=== PATIENT | female | born 1985 | race Native Hawaiian/Other Pacific Islander ===

== ENCOUNTER 2021-09-20 14:53 | Outpatient (CLI) | payer MEDICAID, SELFPAY | END 2021-09-20 14:54 | disposition home or self-care (01) | LOC: NFLDREF 14:55 | PROVIDERS: Visit Provider Physician Assistant | DX: Z01.818 Encounter for other preprocedural examination (principal); Z12.4 Encounter for screening for malignant neoplasm of cervix | CPT/HCPCS: 87624; 88175 ==

== ENCOUNTER 2023-07-01 15:23 | Outpatient (CLI) | payer MEDICAID, SELFPAY ==
--- OUTSIDE RECORDS SUMMARY | 2023-07-01 15:26 | XMS_ITS | Referral Summary ---
Author Name Unknown Organization [place] Address [address] [place] [address] Care Team Providers Care Insulation Extruder Operator Name Role Phone Tre Ba MD Primary Care Provide r Allergies No known active allergies Medications Medication Sig Dispensed Refills Start Date End Date Status ibuprofen (ADVIL/MOTRIN) 800 MG tabletIndications: Missed Take 1 tablet (800 mg) by mouth every 6 hours as needed for other (mild and/or inflammatory pain) 30 tablet 01/20/2022 Active acetaminophen (TYLENOL) 325 MG tabletIndications: Missed Take 3 tablets (975 mg) by mouth every 6 hours as needed for mild pain 50 tablet 01/20/2022 Active Active Problems No known active problems Social History Tobacco Use Types Packs/Day Years Used Date Smoking Tobacco: Never Smokeless Tobacco: Never Tobacco Cessation:Counseling Given: Not Answered Alcohol Use Standard Drinks/Week Comments Not Currently 0 (1 standard drink = 0.6 oz pur e alcohol) Adolescent Education Answer Date Record ed Getting School Help Needed Not on file 11/15 Sex and Gender Information Value Date Recorded Sex Assigned at Not on file Gender Identity Not on file Sexual Orientation Not on file Last Filed Vital Signs Vital Sign Reading Time Taken Comments Blood Pressure 112/59 01/20/2022 11:00 PM [employer] Pulse 80 01/20/2022 11:00 PM [employer] Temperature 37.1 ??C (98.7 ??F) 01/20/2022 10:[address] Respiratory Rate 16 01/20/2022 11:00 PM [employer] Oxygen Saturation 100% 01/20/2022 11:30 PM [employer] Inhaled Oxygen Concentration - - Weight 76.4 kg (168 lb 6.4 oz) 01/20/2022 4:42 P M [employer] Height 154.9 cm (5' 1) 01/20/2022 4:42 PM [employer] Body Mass Index 31.82 01/20/2022 4:42 PM [employer] Plan of Treatment Not on file Procedures Procedure Name Priority Date/Time Associated Diagnosis Comments HCL PAP SMEAR Routine 07/18/1998 1:18 PM CDT Gynecologic Examination from Last 3 Months or Most Recently Relevant to Health Maintenance Results * PAP SMEAR (07/18/1998 1:18 PM CDT) Unlabelled DNR [facility] Biopsy Sent DNR [facility] Source VAG,CERV,E NDOCERV [facility] LMP POST [facility] PARA 3 [facility] 2 [facility] Clinical History DNR [facility] Therapy DNR [facility] Last Pap Diagnosis WITHIN NORMAL LIMITS [facility] PAP Date [id number] [facility] Specimen # DNR [facility] Tissue DNR [facility] Tissue Date DNR [facility] Statement of Adequacy [facility] Comment: SATISFACTORY FOR INTERPRETATION POST MENOPAUSAL PATIENT. ??NO ENDOCERVICAL CELLS SEEN. General Categorization DNR [facility] Descriptive Diagnosis [facility] Comment: WITHIN NORMAL LIMITS ATROPHIC CELL PATTERN Recommendations DNR QUES [facility] DNR 114,,,,,, [facility] DNR DNR [facility] DNR DNR [facility] DNR DNR [facility] . [facility] Comment: ?PAP SMEARS ARE SUBJECT TO BOTH FALSE NEGATIVE AND FALSE ? POSITIVE RESULTS EVIDENCED BY DATA PUBLISHED IN THE ? MEDICAL LITERATURE. ??YOUR PATIENT'S RESULT SHOULD BE ? INTERPRETED IN THIS CONTEXT, TOGETHER WITH THE PATIENT'S ? HISTORY AND CLINICAL FINDINGS. TESTING LOCATION ? THIS TEST WAS PERFORMED AT [facility] ? [address] [facility]. [id number] ? PHONE NUMBERS FOR CYTOLOGY INQUIRES, INCLUDING SLIDE REQUESTS ? EXT. [id number] ?? EXT. [id number] 07/16/1998 Kaleigh Moy MD LABORATORY [facility] from Last 3 Months or Most Recently Relevant to Health Maintenance Care Teams Insulation Extruder Operator Relationship Specialty Start Date End Date Tre [facility]B [facility] [address] [address] PCP - General chemistry research assistant 01/15/22
--- OUTSIDE RECORDS SUMMARY | 2023-07-01 15:26 | XMS_ITS | Clinical Summary ---
Author Name Unknown Organization [place] Address [address] [place] [address] Care Team Providers Care Assistant Maintenance Manager Name Role Phone Tre Ba MD Primary [...] Comments Blood Pressure 112/59 01/20/2022 11:00 PM [employer]AG [employer] Pulse 80 01/20/2022 11:00 PM [employer] Temperature 37.1 ??C (98.7 ??F) 01/20/2022 10:[address] Respiratory Rate 16 01/20/2022 11:00 PM [employer] TE[employer] Oxygen Saturation 100% 01/20/2022 11:30 PM [employer] Inhaled Oxygen Concentration - - Weight 76.4 kg (168 lb 6.4 oz) 01/20/2022 4:42 P M [employer] Height 154.9 cm (5' 1) 01/20/2022 4:42 PM [employer] Body Mass Index 31.82 01/20/2022 4:42 PM [employer] Plan of Treatment Health Maintenance Due Date Last Done Comments ADVANCE CARE PLANNING 1987 ANNUAL REVIEW OF HM ORDERS 1987 GLUCOSE 1987 YEARLY PREVENTIVE VISIT 1987 HIV SCREENING 10/21/2002 HEPATITIS C SCREENING 10/21/2005 HEPATITIS B IMMUNIZATION (1 of 3 - 19+ 3-dose series) 10/21/2006 COVID-19 Vaccine (1 - 2022-2 4 season) 2022 DTAP/TDAP/TD IMMUNIZATION (2 - Td or Tdap) 12/08/2022 12/08/2012 PHQ-2 (once per calendar year) 2023 INFLUENZA VACCINE (Season Ended) 2023 12/08/2012, 04/13/2012 PAP 09/20/2024 09/20/2021, 09/20/2021 HPV IMMUNIZATION Aged Out No longer e ligible based on patient's age to complete this topic IPV IMMUNIZATION Aged Out No longer e ligible based on patient's age to complete this topic MENINGITIS IMMUNIZATION Aged Out No l onger eligible based on patient's age to complete this topic Pneumococcal Vaccine: Pediatrics (0 to 5 Years) and At-Risk Patients (6 to 64 Years) Aged Out No longer eligible b ased on patient's age to complete this topic RSV MONOCLONAL ANTIBODY Aged Out No l onger eligible based on patient's age to complete this topic Procedures Procedure Name Priority Date/Time Associated Diagnosis Comments HCL PAP SMEAR Routine 07/18/1998 1:18 PM CDT Gynecologic Examination from Last 3 Months or Most Recently Relevant to Health Maintenance Results * PAP SMEAR (07/18/1998 1:18 PM CDT) Unlabelled DNR [facility] Biopsy Sent DNR [facility] Source VAG,CERV,E NDOCERV [facility] LMP POST [facility] PARA 3 [facility] 2 [facility] Clinical History DNR [facility] Therapy DNR [facility] Last Pap Diagnosis WITHIN NORMAL LIMITS [facility] PAP Date [id number] [facility] Specimen # DNR [facility] Tissue DNR [facility] Tissue Date DNR [facility] Statement of Adequacy [facility] Comment: SATISFACTORY FOR INTERPRETATION POST MENOPAUSAL PATIENT. ??NO ENDOCERVICAL CELLS SEEN. General Categorization DNR [facility] Descriptive Diagnosis [facility] Comment: WITHIN NORMAL LIMITS ATROPHIC CELL PATTERN Recommendations DNR QUES [facility] DNR 114,,,,,, [facility] DNR DNR [facility] DNR DNR [facility] DNR DNR [facility] . [facility] Comment: ?PAP SMEARS ARE SUBJECT TO BOTH FALSE NEGATIVE AND FALSE ? POSITIVE RESULTS EVIDENCED BY DATA PUBLISHED IN THE ? MEDICAL LITERATURE. ??YOUR PATIENT'S RESULT SHOULD BE ? INTERPRETED IN THIS CONTEXT, TOGETHER WITH THE PATIENT'S ? HISTORY AND CLINICAL FINDINGS. TESTING LOCATION ? [facility] ? [address] [place] [address]. [id number] ? PHONE NUMBERS FOR CYTOLOGY INQUIRES, INCLUDING SLIDE REQUESTS ? EXT. [id number] ?? EXT. [id number] 07/16/1998 Kaleigh Moy MD LABORATORY [facility] from Last 3 Months or Most Recently Relevant to Health Maintenance Care Teams Assistant Maintenance Manager Relationship Specialty Start Date End Date [facility] [address] [phone] PCP - General customer service officer 01/15/22
== END 2023-07-01 15:24 | disposition home or self-care (01) ==
PROVIDERS: Visit Provider Registered Nurse
DX: Z34.92 Encounter for supervision of normal pregnancy, unspecified, second trimester (principal); Z3A.26 26 weeks gestation of pregnancy
CPT/HCPCS: 76805; 82565; 82570; 84156; 84450; 84460; 84520; 86592; 86703; 86704; 86706; 86762; 86787; 86803; 86850; 86900; 86901; 87086; 87340; 87491; 87591

== ENCOUNTER 2023-08-24 08:46 | Outpatient (CLI) | payer MEDICAID, SELFPAY ==
--- OUTSIDE RECORDS SUMMARY | 2023-08-26 15:39 | XMS_ITS | Referral Summary ---
Author Organization [place] Address [address] [place] [address]. [place] [address] Care Team Providers Care Cnc Programmer Name Role Phone Tre Ba MD Primary Care Provide r Bassem Pathak MD Unavailable [phone] Encounters Date Type Department Care Team Description 08/26/2023 Telephone [facility] [address] [place] [phone] Cheri Peters LPN 08/25/2023 Travel 08/25/2023 12:15 PM CDT Office Visit [facility] [address] [facility] [place] [phone] Bassem Pathak MD Yamamura, Yasuko, MD Pre-existing type 2 diabetes mellitus during in third trimester (Primary Dx); Polyhydramnios in third trimester complication, single or unspecified fetus 08/25/2023 11:45 AM CDT - 08/25/2023 11:59 PM CDT Hospital Encounter [facility] Medicine [facility] [address] [place] [phone] Bassem Pathak MD Yamamura, Yasuko, MD Pre-existing type 2 diabetes mellitus during in third trimester Discharge Disposition: Home or Self Care 08/21/2023 Travel 08/21/2023 12:15 PM CDT Office Visit [facility] [address] [place] [phone] Cristiane Patel MD Rauk, Phillip Neil, MD Pre-existing type 2 diabetes mellitus during in third trimester (Primary Dx); Polyhydramnios affecting 08/21/2023 11:45 AM CDT - 08/21/2023 11:59 PM CDT Hospital Encounter [facility] Medicine [facility] [address] [place] [phone] Cristiane Patel MD Rauk, Mitch Walker MD Polyhydramnios affecting Discharge Disposition: Home or Self Care 08/14/2023 Travel 08/14/2023 4:00 PM CDT Office Visit [facility] [place] [address] [address] [facility] [address] [place] [phone] Cristiane Patel MD Rauk, Mitch Walker MD Pre-existing type 2 diabetes mellitus during in third trimester (Primary Dx); Polyhydramnios affecting 08/14/2023 3:30 PM CDT - 08/14/2023 11:59 PM CDT Hospital Encounter [facility] [address] [facility] [address] [place] [phone] Cristiane Patel MD Rauk, Mitch Walker MD Polyhydramnios affecting Discharge Disposition: Home or Self Care 08/03/2023 Telephone [facility] [place] [address] [place] [phone] Laura Adbi, GC Results (Low Risk Expanded NIPT) 07/30/2023 Travel 07/30/2023 4:00 PM CDT Office Visit [facility] [address] [place] [phone] Bassem Pathak MD Pre-existing type 2 diabetes mellitus during in third trimester (Primary Dx) 07/30/2023 3:25 PM CDT - 07/30/2023 11:59 PM CDT Hospital Encounter [facility] Medicine [address] [place] [phone] Bassem Pathak MD Polyhydramnios affecting Discharge Disposition: Home or Self Care 07/29/2023 Telephone [facility] Medicine [facility] [address] [facility] [address] [place] [phone] Carrie Smith, JD Care (/) 07/24/2023 Medical Correspondence [facility] [address] [facility] [place] [address] Scan, Non-Provider 07/24/2023 2:40 PM CDT Lab [facility] [address] [place] [phone] Cristiane Patel MD Multigravida of advanced maternal age in third trimester 07/24/2023 Travel 07/24/2023 2:00 PM CDT Office Visit [facility] Medicine [place] [address] [address] [facility] [address] [place] [address] [phone] Cristiane Patel MD with type 2 diabetes mellitus in third trimester (Primary Dx); Polyhydramnios affecting 07/24/2023 12:50 PM CDT - 07/24/2023 11:59 PM CDT Hospital Encounter [facility] Medicine [facility] [address] [facility] [address] [place] [phone] Cristiane Patel MD related condition, antepartum Discharge Disposition: Home or Self Care 07/24/2023 12:45 PM CDT Office Visit [facility] Medicine [facility] [address] [facility] [address] [place] [address] [phone] Cristiane Patel MD Daykin, Emily C, GC Multigravida of advanced maternal age in third trimester (Primary Dx); related condition, antepartum 07/08/2023 PRE VISIT [facility] [address] [facility] [address] [place] [phone] Melissa Aguiar, JD Ultrasound (L2-AMA) 07/03/2023 Medical Correspondence [facility] [address] [facility] [place] [phone] Scan, Non-Provider 07/03/2023 Transcribe Orders [facility] [address] [place] [phone] Homar Medrano, 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 related condition, antepartum (Primary Dx) from Last 3 Months Allergies No known active allergies Medications Medication [...] pain 50 tablet 01/20/2022 Active Active Problems Estimated Date of Delivery Comme nts Yes 10/10/2023 Based on last me nstrual period of 01/03/2023 No known active problems Social History Tobacco Use Types Packs/Day Years Used Date Smoking Tobacco: Never Smokeless Tobacco: Never Tobacco Cessation:Counseling Given: Not Answered Alcohol Use Standard Drinks/Week Comments Not Currently 0 (1 standard drink = 0.6 oz pur e alcohol) Adolescent Education Answer Date Record ed Getting School Help Needed Not on file 11/15 Estimated Date of Delivery Comme nts Yes 10/10/2023 Based on last me nstrual period of 01/03/2023 Sex and Gender Information Value Date Recorded Sex Assigned at Not on file Gender Identity Not on file Sexual Orientation Not on file Last Filed Vital Signs Vital Sign Reading Time Taken Comments Blood Pressure 112/59 01/20/2022 11:00 PM [employer] Pulse 80 01/20/2022 11:00 PM [employer] Temperature 37.1 ??C (98.7 ??F) 01/20/2022 10:[address] Respiratory Rate 16 01/20/2022 11:00 PM [employer] Oxygen Saturation 100% 01/20/2022 11:30 PM [employer] Inhaled Oxygen Concentration - - Weight 76.4 kg (168 lb 6.4 oz) 01/20/2022 4:42 P M [employer] Height 154.9 cm (5' 1) 01/20/2022 4:42 PM [employer] Body Mass Index 31.82 01/20/2022 4:42 PM [employer] Plan of Treatment Upcoming Encounters Date Type Department Care Team (Late st Contact Info) Description 08/28/2023 8:00 AM CDT Appointment [facility] [address] [place] [phone] Cristiane Patel MD [address] [place] [address] 09/02/2023 11:45 AM CDT Appointment [facility] [address] [place] [phone] Luz Elena Betts MD [address] [place] [address] 09/02/2023 12:15 PM CDT Office Visit [facility] [address] [place] [phone] Luz Elena Betts MD [address] [place] [address] [phone] 09/08/2023 11:45 AM CDT Appointment [facility] [address] [place] [address] [phone] Bassem Pathak MD [address] [place], [place] [phone] Mitch Jernigan MD [address] [place] [address] 09/08/2023 12:15 PM CDT Office Visit [facility] [address] [place] [phone] Bassem Pathak MD [address] [place] [address] Mitch Jernigan MD [address] [place] [address] Procedures Procedure Name Priority Date/Time Associated Diagnosis Comments [facility] BPP SINGLE Routine 08/25/2023 12:05 PM CDT Pre-existing type 2 diabetes mellitus during in third trimester [facility] US COMPREHENSIVE SINGLE F/U Routine 08/21/2023 12:39 PM CDT Polyhydramnios affecting [facility] BPP SINGLE Routine 08/14/2023 3:54 PM CDT [facility] 07/30/2023 3:46 PM CDT Polyhydramnios affecting [facility] NON-INVASIVE SCREENING PREQUEL Routine 07/24/2023 2:49 PM CDT Multigravida of advanced maternal age in third trimester [facility] US COMPREHENSIVE SINGLE Routine 07/24/2023 2:13 PM CDT related condition, antepartum from Last 3 Months Results * [facility] BPP Single (08/25/2023 12:05 PM CDT) Only the most recent of3 resultswithin the time period is included. Anatomical Region Laterality Modality Ultrasound 08/25/2023 11:4 8 AM CDT Impressions 08/25/2023 1:03 PM CDT IMPRESSION ----- 1) Gonzalez intrauterine at 33w 3d gestational age. 2) The BPP is reassuring. 3) Mild polyhydramnios is noted. Narrative 08/25/2023 1:03 PM CDT ?BPP ----- Pat. Name: JACK EDWARDS ? Study Date: ??08/25/2023 11:48am Pat. NO: ??[id number] ?Referring ??MD: HOMAR MEDRANO Site: ? [employer] Sales Manager: Micha Gage RDMS : ??1985 ?Age: ?? 37 ----- INDICATION ----- Type 2 diabetes - on insulin Mild polyhydramnios METHOD ----- Transabdominal ultrasound examination. View: Sufficient ----- Gonzalez . Number of fetuses: 1 DATING ----- ? Date ?Details ?Gest. age ?BROOKE LMP ?01/03/2023 ?33 w + 3 d ? 10/10/2023 Stated BROOKE ? 33 w + 3 d ? 10/10/2023 Previous U/S ?03/03/2023 ?GA, GA 8 w + 3 d ? 33 w + 3 d ? 10/10/2023 Assigned dating ?based on the LMP, selected on 08/25/2023 ? 33 w + 3 d ? 10/10/2023 GENERAL EVALUATION ----- Cardiac activity present. FHR 154 bpm. movements: visualized. Presentation: cephalic Placenta: Anterior Umbilical cord: previously studied AMNIOTIC FLUID ASSESSMENT ----- Amount of AF: Polyhydramnios, Mild MVP 8.5 cm. ALEX 26.2 cm. Q1 1.9 cm, Q2 7.9 cm, Q3 8.9 cm, Q4 7.5 cm BIOPHYSICAL PROFILE ----- 2: breathing movements 2: Gross body movements 2: tone 2: Amniotic fluid volume 8/8 Biophysical profile score Interpretation: normal RECOMMENDATION ----- We discussed the findings on today's ultrasound with the patient. Continue surveillance with twice weekly BPP, alternating between [facility] and [facility]. Return to primary provider for continued care. Thank-you for the opportunity to participate in the care of this patient. If you have questions regarding today's evaluation or if we can be of further service, please contact the [facility]. anomalies may be present but not detected Procedure Note Luz Elena Betts MD - 08/25/2023 BPP ----- Pat. Name: JACK EDWARDS Study Date: 08/25/2023 11:48am Pat. NO: [id number] Referring MD: HOMAR MEDRANO Site: [employer] Manager: Micha Gage RDMS : 1985 Age: 37 ----- INDICATION ----- Type 2 diabetes - on insulin Mild polyhydramnios METHOD ----- Transabdominal ultrasound examination. View: Sufficient ----- Gonzalez . Number of fetuses: 1 DATING ----- DateDetailsGest. age BROOKE LMP w + 3 d 10/10/2023 Stated EDD33 w + 3 d 10/10/2023 Previous U/S 03/03/2023 GA, GA8 w + 3 d33 w + 3 d 10/10/2023 Assigned dating based on the LMP, selected on w + 3 d 10/10/2023 GENERAL EVALUATION ----- Cardiac activity present. FHR 154 bpm. movements: visualized.Presentation: cephalic Placenta: Anterior Umbilical cord: previously studied AMNIOTIC FLUID ASSESSMENT ----- Amount of AF: Polyhydramnios, Mild MVP 8.5 cm. ALEX 26.2 cm. Q1 1.9 cm, Q2 7.9 cm, Q3 8.9 cm, Q4 7.5 cm BIOPHYSICAL PROFILE ----- 2: breathing movements 2: Gross body movements 2: tone 2: Amniotic fluid volume 8/8 Biophysical profile score Interpretation: normal RECOMMENDATION ----- We discussed the findings on today's ultrasound with the patient. Continue surveillance with [facility]. Return to primary provider for continued care. Thank-you for the opportunity to participate in the care of this patient.If you have questions regarding today's evaluation or if we can be offurther service, please contact the [facility]. anomalies may be present but not detected IMPRESSION ----- 1) Gonzalez intrauterine at 33w 3d gestational age. 2) The BPP is reassuring. 3) Mild polyhydramnios is noted. Bassem Pathak MD [facility] US ORDERABLE S * [facility] US Comprehensive Single F/U (08/21/2023 12:39 PM CDT) Anatomical Region Laterality Modality Ultrasound 08/21/2023 11:5 8 AM CDT Impressions 08/21/2023 12:50 PM CDT IMPRESSION ----- 1. Gonzalez at 32w 6d gestational age. 2. None of the anomalies commonly detected by ultrasound were evident in the limited anatomic survey as described above. 3. Growth parameters and estimated weight were consistent with LGA growth. 4. Mild polyhydramnios. 5. BPP is reassuring. Narrative 08/21/2023 12:50 PM CDT ?Comp Follow Up ----- Pat. Name: JACK EDWARDS ? Study Date: ??08/21/2023 11:58am Pat. NO: ??[id number] ?Referring ??MD: HOMAR MEDRANO Site: ? [employer] Sales Manager: Yamila Dutton RDMS : ??1985 ?Age: ?? 37 ----- INDICATION ----- Type 2 diabetes - on insulin Mild polyhydramnios. METHOD ----- Transabdominal ultrasound examination. View: Sufficient ----- Gonzalez . Number of fetuses: 1 DATING ----- ? Date ?Details ?Gest. age ?BROOKE LMP ?01/03/2023 ?32 w + 6 d ? 10/10/2023 Stated BROOKE ? 32 w + 6 d ? 10/10/2023 Previous U/S ?03/03/2023 ?GA, GA 8 w + 3 d ? 32 w + 6 d ? 10/10/2023 U/S ? 08/21/2023 ? based upon AC, BPD, Femur, HC ?34 w + 5 d ? 09/27/2023 Assigned dating ?based on the LMP, selected on 08/14/2023 ? 32 w + 6 d ? 10/10/2023 GENERAL EVALUATION ----- Cardiac activity present. FHR 155 bpm. movements: present. Presentation: cephalic Placenta: Anterior Umbilical cord: 3 vessel cord Amniotic fluid: Amount of AF: mild polyhydramnios . MVP 10.2 cm. ALEX 26.1 cm. Q1 7.3 cm, Q2 10.2 cm, Q3 5.1 cm, Q4 3.5 cm BIOMETRY ----- BPD ? 85.5 ?mm ? 34w 3d ?Hadlock OFD ? 105.1 ?mm ? 31w 0d ?Nicolaides HC ? 302.8 ?mm ? 33w 4d ? Hadlock AC ? 347.6 ?mm ? 38w 5d ?>99% ?Hadlock Femur ?61.7 ?mm ? 32w 0d ? Hadlock Weight Calculation: EFW ?2,846 ?g ? >99% ?Hadlock EFW (lb,oz) ?6 lb 4 ?oz EFW by ? Hadlock (EDA-[id number]-FL) Head / Face / Neck Biometry: Prototyper ?4.4 ? mm ANATOMY ----- The following structures appear normal: Head / Neck ? Cranium. Head size. Head shape. Lateral ventricles. Midline falx. Cavum septi pellucidi. Cerebellum. Cisterna magna. Thalami. Face ? Profile. Heart / Thorax ?4-chamber view. ? Diaphragm. Abdomen ? Stomach. Kidneys. Bladder. Spine ?Thoracic spine. Lumbar spine. Sacral spine. The following structures were documented previously: Face ? Lips. Nose. Heart / Thorax ?RVOT view. LVOT view. 1-pdxvng-cihlztw view. Spine ?Cervical spine. sex: male. MATERNAL STRUCTURES ----- Cervix ?Suboptimal Right Ovary ?Not examined Left Ovary ?Not examined RECOMMENDATION ----- We discussed the findings on today's ultrasound with the patient. The patient has the following ultrasounds already scheduled: 1) BPP once weekly at your clinic. 2) BPP once weekly at [facility]. 3) echo on 08/28/23 with Pediatric Cardiology. 4) growth assessment at [facility] in 4 weeks. Given the polyhydramnios and LGA > 99% it is likely that she does not have adequate DM control despite her self report of good control. We will make recommendations on the timing of her delivery at the next growth ultrasound. Return to primary provider for continued care. Thank-you for the opportunity to participate in the care of this patient. If you have questions regarding today's evaluation or if we can be of further service, please contact the [facility]. anomalies may be present but not detected Procedure Note Mitch Jernigan MD - 08/21/2023 Comp Follow Up ----- Pat. Name: JACK EDWARDS Study Date: 08/21/2023 11:58am Pat. NO: [id number] Referring MD: HOMAR MEDRANO Site: [employer] Sales Manager: Yamila Dutton RDMS : 1985 Age: 37 ----- INDICATION ----- Type 2 diabetes - on insulin Mild polyhydramnios. METHOD ----- Transabdominal ultrasound examination. View: Sufficient ----- Gonzalez . Number of fetuses: 1 DATING ----- DateDetailsGest. age BROOKE LMP w + 6 d 10/10/2023 Stated EDD32 w + 6 d 10/10/2023 Previous U/S 03/03/2023 GA, GA8 w + 3 d32 w + 6 d 10/10/2023 U/S 08/21/2023ased upon AC, BPD, Femur, HC34 w + 5 d 09/27/2023 Assigned dating based on the LMP, selected on w + 6 d 10/10/2023 GENERAL EVALUATION ----- Cardiac activity present. FHR 155 bpm. movements: present.Presentation: cephalic Placenta: Anterior Umbilical cord: 3 vessel cord Amniotic fluid: Amount of AF: mild polyhydramnios . MVP 10.2 cm. ALEX 26.1cm. Q1 7.3 cm, Q2 10.2 cm, Q3 5.1 cm, Q4 3.5 cm BIOMETRY ----- BPD 85.5mm 34w 3dHadlock OFD 105.1mm 31w 0dNicolaides HC 302.8mm 33w 4dHadlock AC 347.6mm 38w 5d >99%Hadlock Femur 61.7mm 32w 0dHadlock Weight Calculation: EFW 2,846g >99%Hadlock EFW (lb,oz) 6 lb 4oz EFW by Hadlock(OML-SE-RP-FL) Head / Face / Neck Biometry: Prototyper 4.4mm ANATOMY ----- The following structures appear normal: Head / Neck Cranium. Head size. Head shape.Lateral ventricles. Midline falx. Cavum septi pellucidi. Cerebellum.Cisterna magna. Thalami. Face Profile. Heart / Thorax 4-chamber view. Diaphragm. Abdomen Stomach. Kidneys. Bladder. Spine Thoracic spine. Lumbar spine.Sacral spine. The following structures were documented previously: Face Lips. Nose. Heart / Thorax RVOT view. LVOT view. 9-efqxdg-hguoljlumuz. Spine Cervical spine. sex: male. MATERNAL STRUCTURES ----- Cervix Suboptimal Right Ovary Not examined Left Ovary Not examined RECOMMENDATION ----- We discussed the findings on today's ultrasound with the patient. The patient has the following ultrasounds already scheduled: 1) BPP once weekly at your clinic. 2) BPP once weekly at [facility]. 3) echo on 08/28/23 with Pediatric Cardiology. 4) growth assessment at [facility] in 4 weeks. Given the polyhydramnios and LGA > 99% it is likely that she does not haveadequate DM control despite her self report of good control. We will makerecommendations on the timing of her delivery at the next growth ultrasound. Return to primary provider for continued care. Thank-you for the opportunity to participate in the care of this patient.If you have questions regarding today's evaluation or if we can be offurther service, please contact the [facility]. anomalies may be present but not detected IMPRESSION ----- 1. Gonzalez at 32w 6d gestational age. 2. None of the anomalies commonly detected by ultrasound were evident inthe limited anatomic survey as described above. 3. Growth parameters and estimated weight were consistent with LGAgrowth. 4. Mild polyhydramnios. 5. BPP is reassuring. Cristiane Patel MD [facility] US ORDERABLE S * [facility] Non-Invasive Screening???Prequel (07/24/2023 2:49 PM CDT) See Scanned Result [facility] NON-INVASIVE SCREENING PREQUEL-Scann ed 08/02/2023 7:16 PM CDT [facility] Blood STRUCTURE OF RIGHT UPPER LIMB / Unknown Venipuncture / Unknown 07/24/2023 2:49 PM CDT 07/24/2023 2:49 PM CDT Laura Abdi LAB - BLOOD ORDERABL ES [facility] [address] [place] [address], [facility] [phone] * [facility] Comprehensive Single (07/24/2023 2:13 PM CDT) Anatomical Region Laterality Modality Ultrasound 07/24/2023 1:32 PM CDT Impressions 07/24/2023 4:30 PM CDT IMPRESSION ----- 1. Gonzalez at 28w 6d gestational age. 2. No anomalies commonly detected by ultrasound were identified in the detailed anatomic survey within the limits of ultrasound. 3. Growth parameters and estimated weight were at the 94th% for gestational age predicted by assigned BROOKE. 4. There is mild polyhydramnios with an ALEX of 24.8cm. 5. On transabdominal imaging the cervix appeared long and closed. 6. The BPP was 09/30. Narrative 07/24/2023 4:30 PM CDT ?Comprehensive ----- Pat. Name: JACK EDWARDS ? Study Date: ??07/24/2023 1:32pm Pat. NO: ??[id number] ?Referring ??MD: HOMAR MEDRANO Site: ??[facility] ? [employer] Internet Sales Manager: Sujatha Joyce RDMS : ??1985 ?Age: ?? 37 ----- INDICATION ----- Advanced Maternal Age. Type 2 diabetes. History of Gestational Hypertension. METHOD ----- Transabdominal ultrasound examination. View: Sufficient ----- Gonzalez . Number of fetuses: 1 DATING ----- ? Date ?Details ?Gest. age ?BROOKE LMP ?01/03/2023 ?28 w + 6 d ? 10/10/2023 Prior assessment ? 03/03/2023 ?GA: 8 w + 3 d ? 28 w + 6 d ? 10/10/2023 U/S ? 07/24/2023 ? based upon AC, BPD, Femur, HC ?30 w + 4 d ? 09/28/2023 Assigned dating ?Dating performed on 07/24/2023, based on the LMP ?28 w + 6 d ? 10/10/2023 GENERAL EVALUATION ----- Cardiac activity present. FHR 155 bpm. movements present. Presentation cephalic. Placenta Anterior, No Previa, > 2 cm from internal os. Umbilical cord 3 vessel cord. Amniotic fluid Amount of AF: Mild, Polyhydramnios. MVP 10.0 cm. ALEX 24.8 cm. Q1 8.6 cm, Q2 4.5 cm, Q3 3.4 cm, Q4 8.4 cm. BIOMETRY ----- Main Biometry: BPD ?76.1 ?mm ? 30w 4d ?Hadlock OFD ?102.7 ?mm ? 30w 2d ? Nicolaides HC ?284.3 ?mm ?31w 1d ?Hadlock Cerebellum tr ?36.3 ? mm ?31w 2d ?Nicolaides AC ?281.4 ?mm ?32w 1d ?>99% ?Hadlock Femur ?53.1 ? mm ?28w 1d ?Hadlock Humerus ?52.9 ?mm ? 30w 6d ?Elian Weight Calculation: EFW ? 1,631 ?g ? 94% ?Hadlock EFW (lb,oz) ? 3 lb 10 ?oz EFW by ?Hadlock (DCD-QX-CF-FL) Head / Face / Neck Biometry: Prototyper ? 3.6 ? mm CM ?5.7 ? mm Nasal bone ? 8.1 ? mm ANATOMY ----- The following structures appear normal: Head / Neck ? Cranium. Head size. Head shape. Lateral ventricles. Choroid plexus. Midline falx. Cavum septi pellucidi. Cerebellum. Cisterna magna. ? Parenchyma. Thalami. Vermis. ? Neck. Face ? Lips. Profile. Nose. Maxilla. Mandible. Orbits. Lens. Heart / Thorax ?4-chamber view. RVOT view. LVOT view. Situs. Aortic arch view. Bicaval view. Ductal arch view. Superior vena cava. Inferior vena cava. 3-vessel ? view. 4-jbzbhz-sutlurm view. Cardiac position. Cardiac size. Cardiac rhythm. ? Right lung. Left lung. Diaphragm. Abdomen ? Abdominal wall. Cord insertion. Stomach. Kidneys. Bladder. Liver. Bowel. Genitals. Spine ?Cervical spine. Thoracic spine. Lumbar spine. Sacral spine. Extremities / Skeleton ?Right arm. Right hand. Left arm. Left hand. Right leg. Right foot. Left leg. Left foot. Gender: male. MATERNAL STRUCTURES ----- Cervix ?Visualized ? Appearance: Appears Closed ? Cervical length 37.1 mm Right Ovary ?Visualized Left Ovary ?Not visualized BIOPHYSICAL PROFILE ----- 2: breathing movements 2: Gross body movements 2: tone 2: Amniotic fluid volume 09/30 Biophysical profile score RECOMMENDATION ----- Thank-you for referring your patient for a comprehensive ultrasound. I discussed the findings on today's ultrasound with the patient. I reviewed the limitations of ultrasound both in detecting aneuploidy and structural abnormalities. Ultrasound can routinely detect 80-90% of structural abnormalities. She has not had genetic screening this - she met with our genetic counseling team today and is planning to have cell free DNA drawn. They will contact Palak Meño when those results are available. We reviewed that on ultrasound today the fetus is measuring large for gestational age > 90th% and there is mild polyhydramnios. Mild polyhydramnios is often idiopathic or related to underlying diabetes. If related to diabetes, proper management can lead to resolution. None of the anomalies commonly associated with polyhydramnios have been identified. We discussed that these are both likely due to her uncontrolled T2DM. Her most recent A1c on 06/30 was 7.6%. Her fasting blood sugars are > 180 and her postprandials are between 220-240. She is following a breastfeeding educator and has met with a manager roofing. No one has started her on insulin yet - she has an appointment to establish with Endocrinology on Thursday. We discussed the importance of diabetic control and discussed the need for her to be started on insulin JAS. Would work closely with Endocrinology to aggressively titrate her insulin to achieve fasting < 95 and 1 hour postprandial < 140. Discussed risks of DKA in the context of uncontrolled diabetes (due to ketone production). Although this is a complication more commonly seen with T1DM it can occur for patients with Type 2 diabetes. DKA can occur when ketones form; your blood becomes acidic from ketone production and cause acidosis. Would recommend providing her with ketones strips to have at home and would recommend testing if blood glucose > 200 or if she is feeling unwell. Given uncontrolled diabetes recommend weekly surveillance increasing to twice weekly at 32 weeks. We will reassess growth in 4 weeks. Would also recommend a echocardiogram - this will need to be scheduled with our pediatric cardiology team at her next visit. Return to primary provider for continued care. If you have questions regarding today's evaluation or if we can be of further service, please contact the [facility]. anomalies may be present but not detected I spent a total of 30 minutes on the date of this encounter including preparing to see the patient (reviewing medical records/tests), counseling and discussing the plan of care, documenting the visit in the electronic medical record, and communicating with other health health care marketing specialist and/or care coordination. Please see note for details. Procedure Note Cristiane Patel MD - 07/24/2023 Comprehensive ----- Pat. Name: JACK EDWARDS Study Date: 07/24/2023 1:32pm Pat. NO: [id number] Referring MD: HOMAR MEDRANO Site: [facility] [employer] Internet Sales Manager: Sujatha Joyce RDMS : 1985 Age: 37 ----- INDICATION ----- Advanced Maternal Age. Type 2 diabetes. History of Gestational Hypertension. METHOD ----- Transabdominal ultrasound examination. View: Sufficient ----- Gonzalez . Number of fetuses: 1 DATING ----- DateDetailsGest. age BROOKE LMP w + 6 d 10/10/2023 Prior assessment 03/03/2023 GA: 8 w +3 d28 w + 6 d 10/10/2023 U/S 07/24/2023ased upon AC, BPD, Femur, HC30 w + 4 d 09/28/2023 Assigned dating Dating performed on 07/24/2023, based onthe LMP 28 w +6 d 10/10/2023 GENERAL EVALUATION ----- Cardiac activity present. FHR 155 bpm. movements present. Presentation cephalic. Placenta Anterior, No Previa, > 2 cm from internal os. Umbilical cord 3 vessel cord. Amniotic fluid Amount of AF: Mild, Polyhydramnios. MVP 10.0 cm. ALEX 24.8cm. Q1 8.6 cm, Q2 4.5 cm, Q3 3.4 cm, Q4 8.4 cm. BIOMETRY ----- Main Biometry: BPD 76.1 mm30w 4d Hadlock OFD 102.7 mm30w 2d Nicolaides HC 284.3 mm31w 1d Hadlock Cerebellum tr 36.3 mm31w 2d Nicolaides AC 281.4 mm32w 1d >99% Hadlock Femur 53.1 mm28w 1d Hadlock Humerus 52.9 mm30w 6d Elian Weight Calculation: EFW 1,631 g94% Hadlock EFW (lb,oz) 3 lb 10 oz EFW by Hadlock ([id number]) Head / Face / Neck Biometry: Prototyper 3.6 mm CM 5.7 mm Nasal bone 8.1 mm ANATOMY ----- The following structures appear normal: Head / Neck Cranium. Head size. Head shape.Lateral ventricles. Choroid plexus. Midline falx. Cavum septi pellucidi.Cerebellum. Cisterna magna. Parenchyma. Thalami. Vermis. Neck. Face Lips. Profile. Nose. Maxilla.Mandible. Orbits. Lens. Heart / Thorax 4-chamber view. RVOT view. LVOT view.Situs. Aortic arch view. Bicaval view. Ductal arch view. Superior venacava. Inferior vena cava. 3-vessel view. 4-telfnj-vcjgegg view.Cardiac position. Cardiac size. Cardiac rhythm. Right lung. Left lung.Diaphragm. Abdomen Abdominal wall. Cord insertion.Stomach. Kidneys. Bladder. Liver. Bowel. Genitals. Spine Cervical spine. Thoracic spine.Lumbar spine. Sacral spine. Extremities / Skeleton Right arm. Right hand. Left arm. Lefthand. Right leg. Right foot. Left leg. Left foot. Gender: male. MATERNAL STRUCTURES ----- Cervix Visualized Appearance: Appears Closed Cervical length 37.1 mm Right Ovary Visualized Left Ovary Not visualized BIOPHYSICAL PROFILE ----- 2: breathing movements 2: Gross body movements 2: tone 2: Amniotic fluid volume 8/8 Biophysical profile score RECOMMENDATION ----- Thank-you for referring your patient for a comprehensive ultrasound. I discussed the findings on today's ultrasound with the patient. Ireviewed the limitations of ultrasound both in detecting aneuploidy andstructural abnormalities. Ultrasound can routinely detect 80-90% of structural abnormalities. She has not hadgenetic screening this - she met with our genetic counselingteam today and is planning to have cell free DNA drawn. They will contact Ms. Mejia those results are available. We reviewed that on ultrasound today the fetus is measuring large forgestational age > 90th% and there is mild polyhydramnios. Mildpolyhydramnios is often idiopathic or related to underlying diabetes. If related to diabetes, proper managementcan lead to resolution. None of the anomalies commonly associated withpolyhydramnios have been identified. We discussed that these are both likely due to heruncontrolled T2DM. Her most recent A1c on 06/30 was 7.6%. Her fasting bloodsugars are > 180 and her postprandials are between 220-240. She is following a diabetic educatorand has met with a manager roofing. No one has started her on insulin yet - shehas an appointment to establish with Endocrinology on Thursday. We discussed the importance ofdiabetic control and discussed the need for her to be started on insulinASAP. Would work closely with Endocrinology to aggressively titrate her insulin to achievefasting < 95 and 1 hour postprandial < 140. Discussed risks of DKA in thecontext of uncontrolled diabetes (due to ketone production). Although this is a complication morecommonly seen with T1DM it can occur for patients with Type 2diabetes. DKA can occur when ketones form; your blood becomes acidic from ketone productionand cause acidosis. Would recommend providing her with ketones strips tohave at home and would recommend testing if blood glucose > 200 or if she is feelingunwell. Given uncontrolled diabetes recommend weekly surveillanceincreasing to twice weekly at 32 weeks. We will reassess growth in 4weeks. Would also recommend a echocardiogram - this will need to bescheduled with our pediatric cardiology team at her next visit. Return to primary provider for continued care. If you have questions regarding today's evaluation or if we can be offurther service, please contact the [facility]. anomalies may be present but not detected I spent a total of 30 minutes on the date of this encounter includingpreparing to see the patient (reviewing medical records/tests), counselingand discussing the plan of care, documenting the visit in the electronic medical record, andcommunicating with other health health care marketing specialist and/or carecoordination. Please see note for details. IMPRESSION ----- 1. Gonzalez at 28w 6d gestational age. 2. No anomalies commonly detected by ultrasound were identified inthe detailed anatomic survey within the limits of prenatalultrasound. 3. Growth parameters and estimated weight were at the 94th% forgestational age predicted by assigned BROOKE. 4. There is mild polyhydramnios with an ALEX of 24.8cm. 5. On transabdominal imaging the cervix appeared long and closed. 6. The BPP was 09/30. Homar Medrano APRN CITY TAX AUDITOR [facility] US ORDERABLES from Last 3 Months Care Teams Cnc Programmer Relationship Specialty Start Date End Date Tre Ba MD [facility] [address] [place], [place] [id number] PCP - General monument letterer 01/15/22 Bassem Pathak MD [address] [place] [address] Assigned OBGYN Provider 08/16/23
--- OUTSIDE RECORDS SUMMARY | 2023-08-26 15:39 | XMS_ITS | Clinical Summary ---
Author Organization [facility] Address [address] [place] [address]. [place] [address] Care Team Providers Care Intelligence Support Officer Name Role Phone Tre Ba MD Primary Care Provide r Bassem Pathak MD Unavailable [phone] Allergies No known active allergies Medications Medication [...] period of 01/03/2023 No known active problems Encounters Date Type Department Care Team Description 08/26/2023 Telephone [facility] [address] [place] [phone] Cheri Peters LPN 08/25/2023 12:15 PM CDT Office Visit [facility] [address] [place] [address] Bassem Pathak MD Yamamura, Yasuko, MD Pre-existing type 2 diabetes mellitus during in third trimester (Primary Dx); Polyhydramnios in third trimester complication, single or unspecified fetus 08/25/2023 11:45 AM CDT - 08/25/2023 11:59 PM CDT Hospital Encounter [facility] [place] [address] [place] [address] Bassem Pathak MD Yamamura, Yasuko, MD Pre-existing type 2 diabetes mellitus during in third trimester Discharge Disposition: Home or Self Care 08/25/2023 Travel 08/21/2023 12:15 PM CDT Office Visit [facility] [place] [address] [place] [phone] Cristiane Patel MD Rauk, Mitch Walker MD Pre-existing type 2 diabetes mellitus during in third trimester (Primary Dx); Polyhydramnios affecting 08/21/2023 11:45 AM CDT - 08/21/2023 11:59 PM CDT Hospital Encounter [facility] [place] [address] [place] [phone] Cristiane Patel MD Rauk, Mitch Walker MD Polyhydramnios affecting Discharge Disposition: Home or Self Care 08/21/2023 Travel 08/14/2023 4:00 PM CDT Office Visit [facility] [place] [address] [place] [phone] Cristiane Patel MD Rauk, Mitch Walker MD Pre-existing type 2 diabetes mellitus during in third trimester (Primary Dx); Polyhydramnios affecting 08/14/2023 3:30 PM CDT - 08/14/2023 11:59 PM CDT Hospital Encounter [facility] [place] [address] [place] [phone] Cristiane Patel MD Rauk, Phillip Neil, MD Polyhydramnios affecting Discharge Disposition: Home or Self Care 08/14/2023 Travel 08/03/2023 Telephone [facility] [address] [place] [phone] Laura Abdi, GC Results (Low Risk Expanded NIPT) 07/30/2023 4:00 PM CDT Office Visit [facility] [address] [place] [phone] Bassem Pathak MD Pre-existing type 2 diabetes mellitus during in third trimester (Primary Dx) 07/30/2023 3:25 PM CDT - 07/30/2023 11:59 PM CDT Hospital Encounter [facility] [place] [address] [place] [phone] Bassem Pathak MD Polyhydramnios affecting Discharge Disposition: Home or Self Care 07/30/2023 Travel 07/29/2023 Telephone [facility] [address] [place] [phone] Carrie Smith, JD Care (/) 07/24/2023 2:40 PM CDT Lab [facility] [address] [place] [phone] Cristiane Patel MD Multigravida of advanced maternal age in third trimester 07/24/2023 2:00 PM CDT Office Visit [facility] [address] [place] [phone] Cristiane Patel MD with type 2 diabetes mellitus in third trimester (Primary Dx); Polyhydramnios affecting 07/24/2023 12:50 PM CDT - 07/24/2023 11:59 PM CDT Hospital Encounter [facility] [address] [place] [phone] Cristiane Patel MD related condition, antepartum Discharge Disposition: Home or Self Care 07/24/2023 12:45 PM CDT Office Visit [facility] [address] [facility] [address] [place] [phone] Cristiane Patel MD Daykin, Emily C, CONCEPCION Multigravida of advanced maternal age in third trimester (Primary Dx); related condition, antepartum 07/24/2023 Medical Correspondence [facility] [address] [place] [phone] Scan, Non-Provider 07/24/2023 Travel 07/08/2023 PRE VISIT [facility] [address] [place] [phone] Melissa Aguiar RN Ultrasound (L2-AMA) 07/03/2023 Medical Correspondence [facility] [address] [place] [phone] Scan, Non-Provider 07/03/2023 Transcribe Orders [facility] [place] [address] [place] [phone] Homar Medrano, COMPUTER TYPESETTER KEYLINER PARTS REPRESENTATIVE related condition, antepartum (Primary Dx) from Last 3 Months Social History Tobacco Use Types Packs/Day Years [...] Comments Blood Pressure 112/59 01/20/2022 11:00 PM BULLET ASSEMBLY PRESS SETTER OPERATOR Pulse 80 01/20/2022 11:00 PM BULLET ASSEMBLY PRESS SETTER OPERATOR Temperature 37.1 ??C (98.7 ??F) 01/20/2022 10:[address] Respiratory Rate 16 01/20/2022 11:00 PM BULLET ASSEMBLY PRESS SETTER OPERATOR Oxygen Saturation 100% 01/20/2022 11:30 PM BULLET ASSEMBLY PRESS SETTER OPERATOR Inhaled Oxygen Concentration - - Weight 76.4 kg (168 lb 6.4 oz) 01/20/2022 4:42 P M BULLET ASSEMBLY PRESS SETTER OPERATOR Height 154.9 cm (5' 1) 01/20/2022 4:42 PM BULLET ASSEMBLY PRESS SETTER OPERATOR Body Mass Index 31.82 01/20/2022 4:42 PM BULLET ASSEMBLY PRESS SETTER OPERATOR Plan of Treatment Upcoming Encounters Date Type Department Care Team (Late st Contact Info) Description 08/28/2023 8:00 AM CDT Appointment [facility] [address] [place] [phone] Cristiane Patel MD [address] [place] [address] 09/02/2023 11:45 AM CDT Appointment [facility] [address] [place] [phone] Luz Elena Betts MD [address] [place] [phone] 09/02/2023 12:15 PM CDT Office Visit [facility] [address] [place] [phone] Luz Elena Betts MD [address] [place] [phone] 09/08/2023 11:45 AM CDT Appointment [facility] [address] [place] [phone] Bassem Pathak MD [address] [place], [place] [address] Mitch Jernigan MD [address] [place] [address] 09/08/2023 12:15 PM CDT Office Visit [facility] [place] [address] [place] [address] Bassem Pathak MD [address] [place] [address] Mitch Jernigan MD [address] [place] [address] Health Maintenance Due Date Last Done Comments ADVANCE CARE PLANNING 1985 ANNUAL REVIEW OF HM ORDERS 1985 GLUCOSE 1985 YEARLY PREVENTIVE VISIT 1985 HIV SCREENING 10/21/2002 HEPATITIS C SCREENING 10/21/2005 HEPATITIS B IMMUNIZATION (1 of 3 - 19+ 3-dose series) 10/21/2006 COVID-19 Vaccine (2022-2 4 season) 2022 PHQ-2 (once per calendar year) 2023 OBGCT (OB) 06/20/2023 INFLUENZA VACCINE (#1) 2023 3, 04/13/2012 PAP 09/20/2024 09/20/2021, 09/20/2021 DTAP/TDAP/TD IMMUNIZATION (3 - Td or Tdap) 07/28/2033 07/29/2023, 12/08/2012 MATERNAL SCREENING DISCUSSION Completed 07/24/2023 HPV IMMUNIZATION Aged Out No longer e [...] patient's age to complete this topic RSV VACCINE ( & 60+ ) (No Doses Required) Completed Procedures Procedure Name Priority Date/Time Associated Diagnosis Comments MFM BPP SINGLE Routine 08/25/2023 12:05 PM CDT Pre-existing type 2 diabetes mellitus during in third trimester [facility] US COMPREHENSIVE SINGLE F/U Routine 08/21/2023 12:39 PM CDT Polyhydramnios affecting [facility] BPP SINGLE Routine 08/14/2023 3:54 PM CDT Polyhydramnios affecting [facility] BPP SINGLE Routine 07/30/2023 3:46 PM CDT Polyhydramnios affecting [facility] NON-INVASIVE SCREENING PREQUEL Routine 07/24/2023 2:49 PM CDT Multigravida of advanced maternal age in third trimester [facility] US COMPREHENSIVE SINGLE Routine 07/24/2023 2:13 PM CDT related condition, antepartum from Last 3 Months Results * [facility] BPP Single (08/25/2023 12:05 PM CDT) Only [...] ? Study Date: ??08/25/2023 11:48am Pat. NO: ??[id number] ?Referring ??MD: HOMAR MEDRANO Site: ? Sail Finisher Machine: Micha Gage RDMS : ??1985 ?Age: ?? [...] Amniotic fluid volume 09/30 Biophysical profile score Interpretation: normal RECOMMENDATION ----- We discussed the findings on today's ultrasound with the patient. Continue surveillance with twice weekly BPP, alternating between [facility] and [facility]. Return to primary provider for continued care. [...] EDWARDS Study Date: 08/25/2023 11:48am Pat. NO: [id number] Referring MD: HOMAR MEDRANO Site: Sail Fin[employer] Machine: Micha Gage RDMS : 1985 Age: 37 [...] Amniotic fluid volume 09/30 Biophysical profile score Interpretation: normal RECOMMENDATION ----- We discussed the findings on today's ultrasound with the patient. Continue surveillance with [facility]. Return to primary provider for continued care. [...] Mild polyhydramnios is noted. Bassem Pathak MD [facility] US ORDERABLE S * [facility] US Comprehensive Single F/U (08/21/2023 12:39 PM [...] ? Study Date: ??08/21/2023 11:58am Pat. NO: ??[id number] ?Referring ??MD: HOMAR MEDRANO Site: ? Sail Finisher Machine: Yamila Dutton RDMS : ??1985 ?Age: ?? [...] BPD ? 85.5 ?mm ? 34w 3d ?Josh BECK ? 105.1 ?mm ? 31w 0d ?Nicolaides HC ? 302.8 ?mm ? 33w 4d ? Hadlock AC ? 347.6 ?mm ? 38w 5d ?>99% ?Hadlock Femur ?61.7 ?mm ? 32w 0d ? Hadlock Weight Calculation: EFW ?2,846 ?g ? >99% ?Hadlock EFW (lb,oz) ?6 lb 4 ?oz EFW by ? Hadlock ([id number]) Head / Face / Neck Biometry: Laboratory Animal Care Veterinarian ?4.4 ? mm ANATOMY ----- The following [...] Heart / Thorax ?RVOT view. LVOT view. 5-ftrqkt-snmtoza view. Spine ?Cervical spine. sex: male. MATERNAL STRUCTURES ----- Cervix ?Suboptimal Right Ovary ?Not examined Left Ovary ?Not examined RECOMMENDATION ----- We discussed the findings on today's ultrasound with the patient. The patient has the following ultrasounds already scheduled: 1) BPP once weekly at your clinic. 2) BPP once weekly at [facility]. 3) echo on 08/28/23 with Pediatric Cardiology. 4) growth assessment at [facility] in 4 weeks. Given the polyhydramnios and [...] EDWARDS Study Date: 08/21/2023 11:58am Pat. NO: [id number] Referring MD: HOMAR MEDRANO Site: Sail Finisher Machine: Yamila Dutton RDMS : 1985 Age: 37 [...] EFW (lb,oz) 6 lb 4oz EFW by Hadlock([id number]) Head / Face / Neck Biometry: Laboratory Animal Care Veterinarian 4.4mm ANATOMY ----- The following structures appear normal: Head / Neck Cranium. Head size. Head shape.Lateral ventricles. Midline falx. Cavum septi pellucidi. Cerebellum.Cisterna magna. Thalami. Face Profile. Heart / Thorax 4-chamber view. Diaphragm. Abdomen Stomach. Kidneys. Bladder. Spine Thoracic spine. Lumbar spine.Sacral spine. The following structures were documented previously: Face Lips. Nose. Heart / Thorax RVOT view. LVOT view. 5-mpwfxf-eokuyoinuca. Spine Cervical spine. sex: male. MATERNAL STRUCTURES ----- Cervix Suboptimal Right Ovary Not examined Left Ovary Not examined RECOMMENDATION ----- We discussed the findings on today's ultrasound with the patient. The patient has the following ultrasounds already scheduled: 1) BPP once weekly at your clinic. 2) BPP once weekly at [facility]. 3) echo on 08/28/23 with Pediatric Cardiology. 4) growth assessment at [facility] in 4 weeks. Given the polyhydramnios and [...] 5. BPP is reassuring. Cristiane Patel MD [facility] US ORDERABLE S * [employer] Non-Invasive Screening???Prequel (07/24/2023 2:49 PM CDT) See Scanned Result [employer] NON-INVASIVE SCREENING PREQUEL-Scann ed 08/02/2023 7:16 PM CDT [facility] Blood STRUCTURE OF RIGHT UPPER LIMB / Unknown Venipuncture / Unknown 07/24/2023 2:49 PM CDT 07/24/2023 2:49 PM CDT Laura Abdi LAB - BLOOD ORDERABL ES [facility] [address] [place] [address], [facility] [phone] * [facility] Comprehensive Single (07/24/2023 2:13 PM CDT) Anatomical [...] long and closed. 6. The BPP was 8/8. Narrative 07/24/2023 4:30 PM CDT ?Comprehensive ----- Pat. Name: JACK EDWARDS ? Study Date: ??07/24/2023 1:32pm Pat. NO: ??[id number] ?Referring ??MD: HOMAR MEDRANO Site: ??[facility] ? Sail Finisher Machine: Sujatha Joyce RDMS : ??1985 ?Age: ?? [...] 3 lb 10 ?oz EFW by ?Hadlock ([id number]) Head / Face / Neck Biometry: Laboratory Animal Care Veterinarian ? 3.6 ? mm CM ?5.7 ? [...] cava. Inferior vena cava. 3-vessel ? view. 1-ydkgjh-twapsjm view. Cardiac position. Cardiac size. Cardiac rhythm. [...] are between 220-240. She is following a natural resources extension educator and has met with a recreation specialist. No one has started her on insulin [...] medical record, and communicating with other health healthcare facility administrator and/or care coordination. Please see note for details. Procedure Note Cristiane Patel MD - 07/24/2023 Comprehensive ----- Pat. Name: JACK EDWARDS Study Date: 07/24/2023 1:32pm Pat. NO: [id number] Referring MD: HOMAR MEDRANO Site: [facility] Sail Finisher Machine: Sujatha Joyce RDMS : 1985 Age: 37 [...] 3 lb 10 oz EFW by Hadlock ([id number]) Head / Face / Neck Biometry: Laboratory Animal Care Veterinarian 3.6 mm CM 5.7 mm Nasal bone [...] Superior venacava. Inferior vena cava. 3-vessel view. 1-qaghkz-ooqmmyy view.Cardiac position. Cardiac size. Cardiac rhythm. Right [...] a diabetic educatorand has met with a recreation specialist. No one has started her on insulin [...] electronic medical record, andcommunicating with other health healthcare facility administrator and/or carecoordination. Please see note for details. [...] The BPP was 09/30. Homar Medrano APRN PARTS REPRESENTATIVE IMG MFM US ORDERABLES from Last 3 Months Care Teams Intelligence Support Officer Relationship Specialty Start Date End Date Tre Ba MD [facility] [address] [place] [address] PCP - General wind projects supervisor 01/15/22 Bassem Pathak MD [address] [facility] [address] [place], [place] [address] Assigned OBGYN Provider 08/16/23
--- OUTSIDE RECORDS SUMMARY | 2023-08-26 15:39 | XMS_ITS | Encounter Summary ---
Author Organization [place] Address [address] [place] [address]. [place] [address] Care Team Providers Care Silk Screen Cutter Name Role Phone Tre Ba MD Primary Care Provide r Bassem Pathak MD Unavailable [phone] Encounter Details Date Type Department Care Team (Late st Contact Info) Description 08/26/2023 Telephone [facility] Heart [address] [address] Cheri Peters LPN Social History Tobacco Use Types Packs/Day Years Used Date Smoking Tobacco: Never Smokeless Tobacco: Never Alcohol Use Standard Drinks/Week Comments Not Currently [...] on file Sexual Orientation Not on file documented as of this encounter Miscellaneous Notes * Telephone Encounter - Cheri Peters LPN - 08/26/2023 10:46 AM CDT Called to confirm 08/27 echo appointment. Patient stated she did not need the address or parking info. documented in this encounter Plan of Treatment Upcoming Encounters Date Type Department Care Team (Late Contact Info) Description 08/28/2023 8:00 AM CDT Appointment [facility] Heart Care [address] [place] [phone] Cristiane Patel MD [address] [place] [address] 09/02/2023 11:[address] [facility] Medicine [facility] [place] [address] [place] [phone] Luz Elena Betts MD [address] [address] 09/02/2023 12:15 PM CDT Office Visit [facility] Maternal Medicine [place] [address] [place] [phone] Luz Elena Betts MD [address] [id number] 09/08/2023 11:[address] [facility]aternal Medicine [place] [address] [place] [phone] Bassem Pathak MD [address] [place] [address] [id number] Mitch Jernigan MD [address] [place] [address] [id number] 09/08/2023 12:15 PM CDT Office Visit [facility]aternal Medicine [place] [address] [place] [phone] Bassem Pathak MD [address] [place] [address] [phone] Mitch Jernigna MD [address] [place] [address] documented as of this encounter Visit Diagnoses Not on filedocumented in this encounter Care Teams Silk Screen Cutter Relationship Specialty Start Date End Date Tre Ba MD [address] [facility] 100 [place] [address] PCP - General heating worker 01/15/22 Bassem Pathak MD [address] [place] [address] Assigned OBGYN Provider 08/16/23 documented as of this encounter
--- OUTSIDE RECORDS SUMMARY | 2023-08-26 15:39 | XMS_ITS | Encounter Summary ---
Author Organization [place] Address [address] [facility] [place] [address] Care Team Providers Care Pediatric Clinical Nurse Specialist Name Role Phone Tre Ba MD Primary Care Provide r Bassem Pathak MD Unavailable [phone] Encounter Details Date Type Department Care Team (Latest Contact Info) Description 08/25/2023 Travel Social History Tobacco Use Types Packs/Day Years [...] on file documented as of this encounter Plan of Treatment Upcoming Encounters Date Type Department Care Team (Late st Contact Info) Description 08/28/2023 8:00 AM CDT Appointment [facility] Heart Care [address] [place] [phone] Cristiane Patel MD [address] [place] [address] 09/02/2023 11:45 AM CDT Appointment [facility] M[facility] Medicine Center [place] [address] [facility] [address] [place] [phone] Luz Elena Betts MD [address] [place] [address] 09/02/2023 12:15 PM CDT Office Visit [facility] Medicine [place] [address] [address] [facility] [address] [place] [phone] Luz Elena Betts MD [address] [place] [address] 09/08/2023 11:[address] [facility] Medicine [place] [address] [address] [facility] [address] [place] [phone] Bassem Pathak MD [address] [place], [place] 6839[address] Mitch Jernigan MD [address] [place] [address] [id number] 09/08/2023 12:15 PM CDT Office Visit [place] [address] [address] [facility] [address] [place] [phone] Bassem Pathak MD [address] [place], [place] [address] Mitch Jernigan MD [address] [place], [place] 37[address] documented as of this encounter Visit Diagnoses Not on filedocumented in this encounter Care Teams Pediatric Clinical Nurse Specialist Relationship Specialty Start Date End Date Tre Ba MD [facility] [address] [facility] [address] [place] [address] PCP - General thread milling machine set up operator 01/15/22 Bassem Pathak MD [address] [place] [address] Assigned OBGYN Provider 08/16/23 documented as of this encounter
--- OUTSIDE RECORDS SUMMARY | 2023-08-26 15:40 | XMS_ITS | Encounter Summary ---
Author Organization [place] Address [address] [facility] [place] [address] Care Team Providers Care Television Receiver Analyzer Name Role Phone Tre Ba MD Primary Care Provide r Encounter Details Date Type Department Care Team (Latest Contact Info) Description 08/14/2023 Travel Social History Tobacco Use Types Packs/Day [...] Info) Description 08/28/2023 8:00 AM CDT Appointment [facility] Heart Care [address] [place] [phone] Cristiane Patel MD [address] [place], [place] [address] 09/02/2023 11:45 AM CDT Appointment [facility] Maternal Medicine Center [place] [address] [facility] [address] [place] [phone] Luz Elena Betts MD [address] [place], [place] [address] 09/02/2023 12:15 PM CDT Office Visit [facility] Maternal Medicine [place] [address] [place] [phone] Luz Elena Betts MD [address] [place] [address] 09/08/2023 11:45 AM CDT Appointment [facility] Medicine [facility] [address] [place] [phone] Bassem Pathak MD [address] [place], [place] [phone] Mitch Jernigan MD [address] [place], [place] [address] 09/08/2023 12:15 PM CDT Office Visit [facility] Medicine [place] [address] [place] [phone] Bassem Pathak MD [address] [place], [place] [phone] Mitch Jernigan MD [address] [place], [place] [phone] documented as of this encounter Visit Diagnoses Not on filedocumented in this encounter Care Teams Television Receiver Analyzer Relationship Specialty Start Date End Date Tre Ba MD [facility] [address] [id number] PCP - General teacher assistant 01/15/22 documented as of this encounter
--- OUTSIDE RECORDS SUMMARY | 2023-08-26 15:40 | XMS_ITS | Encounter Summary ---
Author Organization [place] Address [address] [place] [address]. [place] [address] Care Team Providers Care Farm Equipment Engine Mechanic Name Role Phone Tre Ba MD Primary Care Provide r Encounter Details Date Type Department Care Team (Late st Contact Info) Description 07/24/2023 Medical Correspondence [facility] Info Mgmt [facility] [address] [place] [phone] Scan, Non-Provider Social History Tobacco Use Types Packs/Day Years [...] Info) Description 08/28/2023 8:00 AM CDT Appointment [facility] Heart Care [address] [place] [phone] Cristiane Patel MD [address] [facility] [address] [place] [address] 09/02/2023 11:45 AM CDT Appointment [facility] [place] [address] [facility] [address] [place] [phone] Luz Elena Betts MD [address] [place] [address] 09/02/2023 12:15 PM CDT Office Visit [facility] Maternal Medicine [facility] [address] [place] [phone] Luz Elena Betts MD [address] [place] [address] 09/08/2023 11:45 AM CDT Appointment [facility] Medicine [place] [address] [facility] [address] [place] [phone] Bassem Pathak MD [address] [place] [address] [phone] Mitch Jernigan MD [address] [place] [address] 09/08/2023 12:15 PM CDT Office Visit [facility] Medicine [place] [address] [facility] [address] [place] [phone] Bassem Pathak MD [address] [place], [place] [address] Mitch Jernigan MD [address] [place] [address] documented as of this encounter Visit Diagnoses Not on filedocumented in this encounter Care Teams Farm Equipment Engine Mechanic Relationship Specialty Start Date End Date Tre Ba MD [address] [address] PCP - General playground worker 01/15/22 documented as of this encounter
--- OUTSIDE RECORDS SUMMARY | 2023-08-26 15:40 | XMS_ITS | Encounter Summary ---
Author Organization [place] Address [address] [facility] [place] [address] Care Team Providers Care Consulting Nurse Name Role Phone Tre Ba MD Primary Care Provide r Reason for Referral * Diagnostic Imaging Ultrasound (Routine) - Pending Review Specialty Diagnoses / Procedures Referred By Temo taylor Referred To Contact Radiology. Diagnoses Diabetes mellitus, type 2 (H) Polyhydramnios affecting Procedures [facility] Cristiane Rubin MD [address] [place] [address] Referral ID Status Reason Start Date Expiration Date V isits Requested Visits Authorized [id number] Pending Review 07/24/2023 07/23/2024 1 1 Reason for Visit * Diagnostic Imaging Ultrasound (Routine) - Pending Review Specialty Diagnoses / Procedures Referred By Temo taylor Referred To Contact Radiology. Diagnoses Diabetes mellitus, type 2 (H) Polyhydramnios affecting Procedures [facility] Cristiane Rubin MD [address] [place] [address] Referral ID Status Reason Start Date Expiration Date V isits Requested Visits Authorized [id number] Pending Review 07/24/2023 07/23/2024 1 1 Encounter Details Date Type Department Care Team (Latest Contact Info) Description 08/14/2023 3:30 PM CDT - 08/14/2023 11:59 PM CDT Hospital Encounter [facility] Maternal Medicine Center [place] [address] [facility] [address] [place] [phone] Cristiane Patel MD [address] [place], [place] 6[address] Mitch Jernigan MD [address] [place] [address] Polyhydramnios affecting Discharge Disposition: Home or Self Care Social History Tobacco Use Types Packs/Day Years [...] on file documented as of this encounter Medications at Time of Discharge Medication Sig Dispensed Refills Start Date End Date acetaminophen (TYLENOL) 325 MG tabletIndications:Miss ed Take 3 tablets (975 mg) by mouth every 6 hours as needed for mild pain 50 tablet 01/20/2022 ibuprofen (ADVIL/MOTRIN) 800 MG tabletIndications:Miss ed Take 1 tablet (800 mg) by mouth every 6 hours as needed for other (mild and/or inflammatory pain) 30 tablet 01/20/2022 documented as of this encounter Plan of Treatment Upcoming Encounters Date Type Department Care Team (Late st Contact Info) Description 08/28/2023 8:00 AM CDT Appointment [facility] Heart Care [address] [place] [phone] Cristiane Patel MD [address] [facility] [address] [place], [place] [address] 09/02/2023 11:45 AM CDT Appointment [facility] Maternal Medicine Center [place] [address] [facility] [address] [place] [phone] Luz Elena Betts MD [address] [place], [place] [address] 09/02/2023 12:15 PM CDT Office Visit [facility] Medicine [facility] [address] [place] [phone] Luz Elena Betts MD [address] [place], [place] [address] [phone] 09/08/2023 11:45 AM CDT Appointment [facility] Medicine [place] [address] [facility] [address] [place] [phone] Bassem Pathak MD [address] [place] [address] [id number] Mitch Jernigan MD [address] [place], [place] [address] 09/08/2023 12:15 PM CDT Office Visit [facility] Medicine [place] [address] [facility] [address] [place] [phone] Bassem Pathak MD [address] [place], [place] [address] Mitch Jernigan MD [address] [place], [place] 8[address] documented as of this encounter Procedures Procedure Name Priority Date/Time Associated Diagnosis Comments [facility] BPP SINGLE Routine 08/14/2023 3:54 PM CDT Polyhydramnios affecting documented in this encounter Results * [facility] BPP Single (08/14/2023 3:54 PM CDT) Anatomical Region Laterality Modality Ultrasound 08/14/2023 3:35 PM CDT Impressions 08/14/2023 4:06 PM CDT IMPRESSION ----- 1) Mild polyhydramnios. 2) BPP is reassuring. Narrative 08/14/2023 4:06 PM CDT ?BPP ----- Pat. Name: SHEBA WILDER ? Study Date: ??08/14/2023 3:35pm Pat. NO: ??[id number] ?Referring ??MD: HOMAR MEDRANO Site: ? Purchase Analyst: Gemma Pinzon RDMS : ??1985 ?Age: ?? 37 ----- INDICATION ----- Advanced maternal age. Type 2 diabetes - on insulin History of gestational hypertension. Mild polyhydramnios. METHOD ----- Transabdominal ultrasound examination. View: Sufficient ----- [place] . Number of fetuses: 1 DATING ----- ? Date ?Details ?Gest. age ?BROOKE LMP ?01/03/2023 ?31 w + 6 d ? 10/10/2023 Stated BROOKE ? 31 w + 6 d ? 10/10/2023 Previous U/S ?03/03/2023 ?GA, GA 8 w + 3 d ? 31 w + 6 d ? 10/10/2023 Assigned dating ?based on the LMP, selected on 08/14/2023 ? 31 w + 6 d ? 10/10/2023 GENERAL EVALUATION ----- Cardiac activity present. FHR 157 bpm. movements: visualized. Presentation: cephalic Placenta: Anterior Umbilical cord: previously studied AMNIOTIC FLUID ASSESSMENT ----- Amount of AF: Mild, Polyhydramnios MVP 9.4 cm. ALEX 25.8 cm. Q1 5.4 cm, Q2 9.4 cm, Q3 3.7 cm, Q4 7.3 cm BIOPHYSICAL PROFILE ----- 2: breathing movements 2: Gross body movements 2: tone 2: Amniotic fluid volume 8/8 Biophysical profile score Interpretation: normal RECOMMENDATION ----- We discussed the findings on today's ultrasound with the patient. The patient is having testing with BPP at our office once weekly. The patient reported that she is out of insulin and has not contacted your office or her teletype or varitype keyboard operator. Currently we are not reviewing her blood sugars or providing co-managed care for her diabetes management. We recommend that the patient continue to follow with endocrinology for her diabetes care. Return to primary provider for continued care. Thank-you for the opportunity to participate in the care of this patient. If you have questions regarding today's evaluation or if we can be of further service, please contact the Maternal- Medicine Center. anomalies may be present but not detected Procedure Note Mitch Jernigan MD - 08/14/2023 BPP ----- Pat. Name: SHEBA WILDER Study Date: 08/14/2023 3:35pm Pat. NO: [id number] Referring MD: HOMAR MEDRANO Site: [place] Analyst: Gemma Pinzon RDMS : 1985 Age: 37 ----- INDICATION ----- Advanced maternal age. Type 2 diabetes - on insulin History of gestational hypertension. Mild polyhydramnios. METHOD ----- Transabdominal ultrasound examination. View: Sufficient ----- [place] . Number of fetuses: 1 DATING ----- DateDetailsGest. age BROOKE LMP w + 6 d 10/10/2023 Stated EDD31 w + 6 d 10/10/2023 Previous U/S 03/03/2023 GA, GA8 w + 3 d31 w + 6 d 10/10/2023 Assigned dating based on the LMP, selected on w + 6 d 10/10/2023 GENERAL EVALUATION ----- Cardiac activity present. FHR 157 bpm. movements: visualized.Presentation: cephalic Placenta: Anterior Umbilical cord: previously studied AMNIOTIC FLUID ASSESSMENT ----- Amount of AF: Mild, Polyhydramnios MVP 9.4 cm. ALEX 25.8 cm. Q1 5.4 cm, Q2 9.4 cm, Q3 3.7 cm, Q4 7.3 cm BIOPHYSICAL PROFILE ----- 2: breathing movements 2: Gross body movements 2: tone 2: Amniotic fluid volume 8/8 Biophysical profile score Interpretation: normal RECOMMENDATION ----- We discussed the findings on today's ultrasound with the patient. The patient is having testing with BPP at our office onceweekly. The patient reported that she is out of insulin and has notcontacted your office or her teletype or varitype keyboard operator. Currently we are not reviewing her blood sugars orproviding co-managed care for her diabetes management. We recommend thatthe patient continue to follow with endocrinology for her diabetes care. Return to primary provider for continued care. Thank-you for the opportunity to participate in the care of this patient.If you have questions regarding today's evaluation or if we can be offurther service, please contact the Maternal- Medicine Center. anomalies may be present but not detected IMPRESSION ----- 1) Mild polyhydramnios. 2) BPP is reassuring. Cristiane Patel MD [facility] US ORDERABLE S documented in this encounter Visit Diagnoses Diagnosis Polyhydramnios affecting documented in this encounter Care Teams Consulting Nurse Relationship Specialty Start Date End Date Tre Ba MD [facility] [address] [facility] [address] [place] [address] PCP - General prime broker 01/15/22 documented as of this encounter
--- OUTSIDE RECORDS SUMMARY | 2023-08-26 15:40 | XMS_ITS | Encounter Summary ---
Author Organization [place] Address [facility] [place] [address] Care Team Providers Care Bioinformatics Developer Name Role Phone Tre Ba MD Primary Care Provide r Reason for Referral * Diagnostic Imaging Ultrasound (Routine) - Pending Review Specialty Diagnoses / Procedures Referred By Temo taylor Referred To Contact Radiology. Diagnoses related condition, antepartum Procedures [facility] US Comprehensive Single Homar Medrano APRN CNP [facility] [address] [place] [address] Referral ID Status Reason Start Date Expiration Date V isits Requested Visits Authorized [id number] Pending Review 07/03/2023 07/02/2024 1 1 Reason for Visit * Diagnostic Imaging Ultrasound (Routine) - Pending Review Specialty Diagnoses / Procedures Referred By Temo taylor Referred To Contact Radiology. Diagnoses related condition, antepartum Procedures [facility] US Comprehensive Single Homar Medrano APRN [facility] [address] [place] [address] Referral ID Status Reason Start Date Expiration Date V isits Requested Visits Authorized [id number] Pending Review 07/03/2023 07/02/2024 1 1 Encounter Details Date Type Department Care Team (Latest Contact Info) Description 07/24/2023 12:50 PM CDT - 07/24/2023 11:59 PM CDT Hospital Encounter [facility] Maternal Medicine Center [place] [address] [facility] [address] [place] [phone] Cristiane Patel MD [address] [place], [place] [phone] related condition, antepartum Discharge Disposition: Home or Self Care Social [...] Info) Description 08/28/2023 8:00 AM CDT Appointment [facility] Heart Care [address] [place] [phone] Cristiane Patel MD [address] [place], [place] [address] 09/02/2023 11:45 AM CDT Appointment [facility] Maternal Medicine Center [place] [address] [facility] [address] [place] [phone] Luz Elena Betts MD [address] [place], [place] [address] 09/02/2023 12:15 PM CDT Office Visit [facility] Maternal Medicine [place] [address] [place] [phone] Luz Elena Betts MD [address] [place], [place] [address] 09/08/2023 11:45 AM CDT Appointment [facility] Maternal Medicine [place] [address] [facility] [address] [place] [phone] Bassem Pathak MD [address] [place], [place] [phone] Mitch Jernigan MD [address] [place] [address] [id number] 09/08/2023 12:15 PM CDT Office Visit [facility] Maternal Medicine [place] [address] [facility] [address] [place] [phone] Bassem Pathak MD [address] [place], [place] [phone] Mitch Jernigan MD [address] [place] [phone] documented as of this encounter Procedures Procedure Name Priority Date/Time Associated Diagnosis Comments [facility] US COMPREHENSIVE SINGLE Routine 07/24/2023 2:13 PM CDT related condition, antepartum documented in this encounter Results * [facility] US Comprehensive Single (07/24/2023 2:13 PM CDT) Anatomical [...] PM CDT ?Comprehensive ----- Pat. Name: JACK WILDER ? Study Date: ??07/24/2023 1:32pm Pat. NO: ??[id number] ?Referring ??MD: HOMAR MEDRANO Site: ??[place] ? Business Team Leader: Sujatha Joyce RDMS : ??1985 ?Age: ?? [...] 3 lb 10 ?oz EFW by ?Hadlock ([id number]) Head / Face / Neck Biometry: Electric Organ Assembler And Checker ? 3.6 ? mm CM ?5.7 ? [...] cava. Inferior vena cava. 3-vessel ? view. 0-fplnws-olysszo view. Cardiac position. Cardiac size. Cardiac rhythm. [...] are between 220-240. She is following a siene maker and has met with a spud sorter. No one has started her on insulin [...] medical record, and communicating with other health urgent care and/or care coordination. Please see note for details. Procedure Note Cristiane Patel MD - 07/24/2023 Comprehensive ----- Pat. Name: JACK WILDER Study Date: 07/24/2023 1:32pm Pat. NO: [id number] Referring MD: HOMAR MEDRANO Site: [facility] Business Team Leader: Sujatha Joyce RDMS : 1985 Age: 37 ----- INDICATION ----- Advanced Maternal Age. Type 2 diabetes. History of Gestational Hypertension. METHOD ----- Transabdominal ultrasound examination. View: Sufficient ----- [place] . Number of fetuses: 1 DATING ----- DateDetailsGest. age BROOKE LMP 8 w + 6 d 10/10/2023 Prior assessment [...] 3 lb 10 oz EFW by Hadlock ([id number]) Head / Face / Neck Biometry: Electric Organ Assembler And Checker 3.6 mm CM 5.7 mm Nasal bone [...] Superior venacava. Inferior vena cava. 3-vessel view. 6-hralsq-auhimje view.Cardiac position. Cardiac size. Cardiac rhythm. Right [...] a diabetic educatorand has met with a spud sorter. No one has started her on insulin [...] electronic medical record, andcommunicating with other health urgent care and/or carecoordination. Please see note for details. [...] and closed. 6. The BPP was 8/8. Hom[place] Medrano APRN [place] [facility] US ORDERABLES documented in this encounter Visit Diagnoses Diagnosis related condition, antepartum documented in this encounter Care Teams Bioinformatics Developer Relationship Specialty Start Date End Date Tre Ba MD [facility] T[address] [address] PCP - General phys asst 01/15/22 documented as of this encounter
--- OUTSIDE RECORDS SUMMARY | 2023-08-26 15:40 | XMS_ITS | Encounter Summary ---
Author Organization [place] Address [address] [facility] [place] [address] Care Team Providers Care Steno Pool Supervisor Name Role Phone Tre Ba MD Primary Care Provide r Encounter Details Date Type Department Care Team (Latest Contact Info) Description 07/30/2023 Travel Social History Tobacco Use Types Packs/Day [...] Info) Description 08/28/2023 8:00 AM CDT Appointment [facility] [address] [place] [phone] Cristiane Patel MD [address] [place], [place] [address] 09/02/2023 11:45 AM CDT Appointment [facility] Maternal Medicine [facility] [place] [address] [facility] [address] [place] [phone] Luz Elena Betts MD [address] [place], [place] [address] 09/02/2023 12:15 PM CDT Office Visit [facility] Maternal Medicine [place] [address] [place] [phone] Luz Elena Betts MD [address] [place] [address] 09/08/2023 11:45 AM CDT Appointment [facility] Medicine [facility] [address] [place] [phone] Bassem Pathak MD [address] [place], [place] [phone] Mitch Jernigan MD [address] [place], [place] [address] 09/08/2023 12:15 PM CDT Office Visit [facility] Medicine [place] [address] [place] [phone] Bassem Pathak MD [address] [place], [place] [phone] Mitch Jernigan MD [address] [place], [place] [phone] documented as of this encounter Visit Diagnoses Not on filedocumented in this encounter Care Teams Steno Pool Supervisor Relationship Specialty Start Date End Date Tre Ba MD [facility] TERRY PONCE [address] [phone] PCP - General clinical specialist vascular 01/15/22 documented as of this encounter
--- OUTSIDE RECORDS SUMMARY | 2023-08-26 15:40 | XMS_ITS | Encounter Summary ---
Author Organization [place] Address [address] [facility] [place] [address] Care Team Providers Care Wood Type Finisher Name Role Phone Tre Ba MD Primary Care Provide r Bassem Pathak MD Unavailable Reason for Visit * Reason Comments Ultrasound BPP- T2DM on insulin , mild poly Encounter Details Date Type Department Care Team (Late st Contact Info) Description 08/25/2023 12:15 PM CDT Office Visit [facility] Maternal Medicine Center [place] [address] [facility] [address] [place] [address] Bassem Pathak MD [address] [place] [address] Luz Elena Betts MD [address] [place] [address] Pre-existing type 2 diabetes mellitus during in third trimester (Primary Dx); Polyhydramnios in third trimester complication, single or unspecified fetus Social History Tobacco Use Types Packs/Day Years [...] on file documented as of this encounter Progress Notes * Luz Elena Betts MD - 08/25/2023 12:15 PM CDT Please see Imaging tab under Chart Review for details of today's visit. Luz Elena Betts documented in this encounter Nursing Notes * Maria R Cody RN - 08/25/2023 12:15 PM CDT Patient reports positive movement, denies pain, denies contractions/pre- term labor, leaking of fluid, or bleeding. Reports blood sugar values fasting 95 and 1 hr post prandial 105. Patient denies headache, visual changes, nausea/vomiting, epigastric pain related to preeclampsia. Education provided to patient on BPP. SBAR given to TREVOR GRESHAM, see their note in Epic. Maria R Cody RN documented in this encounter Plan of Treatment Upcoming Encounters Date Type Department Care Team (Late st Contact Info) Description 08/28/2023 8:00 AM CDT Appointment [facility] Heart Care [address] [place] [address] Cristiane Patel MD [address] [facility] [address] [place] [address] 09/02/2023 11:45 AM CDT Appointment [facility] Maternal Medicine [facility] [address] [place] [phone] Luz Elena Betts MD [address] [place] [address] 09/02/2023 12:15 PM CDT Office Visit [facility] Maternal Medicine [facility] [address] [place] [phone] Luz Elena Betts MD [address] [place], [place] [address] 09/08/2023 11:45 AM CDT Appointment [facility] Maternal Medicine [facility] [address] [facility] [address] [place] [phone] Bassem Pathak MD [address] [place], [place] [phone] Mitch Jernigan MD [address] [place], [place] [phone] 09/08/2023 12:15 PM CDT Office Visit [facility] Medicine [facility] [address] [facility] [address] [place] [phone] Bassem Pathak MD [address] [place], [place] [address] Mitch Jernigan MD [address] [place] [address] documented as of this encounter Visit Diagnoses Diagnosis Pre-existing type 2 diabetes mellitus during in third trimester- Primary Polyhydramnios in third trimester complication, single or unspecified fetus documented in this encounter Care Teams Wood Type Finisher Relationship Specialty Start Date End Date Tre Ba MD [facility] TERRY PONCE [address] [address] PCP - General sales service route manager 01/15/22 Bassem Pathak MD [address] [place] [address] Assigned OBGYN Provider 08/16/23 documented as of this encounter
--- OUTSIDE RECORDS SUMMARY | 2023-08-26 15:40 | XMS_ITS | Encounter Summary ---
Author Organization [place] Address Critical access hospital0 [facility] [place] [address] Care Team Providers Care Senior Librarian Name Role Phone Tre Ba MD Primary Care Provide r Bassem Pathak MD Unavailable [phone] Reason for Referral * Diagnostic Imaging Ultrasound (Routine) - Pending Review Specialty Diagnoses / Procedures Referred By Temo taylor Referred To Contact Radiology. Diagnoses Pre-existing type 2 diabetes mellitus during in third trimester [facility] [address] [facility] [address] [place] [address] Referral ID Status Reason Start Date Expiration Date V isits Requested Visits Authorized [id number] Pending Review 07/30/2023 07/29/2024 1 1 Reason for Visit * Diagnostic Imaging Ultrasound (Routine) - Pending Review Specialty Diagnoses / Procedures Referred By Temo taylor Referred To Contact Radiology. Diagnoses Pre-existing type 2 diabetes mellitus during in third trimester Procedures [facility] Bassem Dhillon MD [address] [place] [address] Referral ID Status Reason Start Date Expiration Date V isits Requested Visits Authorized [id number] Pending Review 07/30/2023 07/29/2024 1 1 Encounter Details Date Type Department Care Team (Latest Contact Info) Description 08/25/2023 11:45 AM CDT - 08/25/2023 11:59 PM CDT Hospital Encounter [facility] Maternal Medicine [facility] [address] [facility] [address] [place] [phone] Bassem Pathak MD [address] [place] [address] Luz Elena Betts MD [address] [facility] [address] [place] [address] Pre-existing type 2 diabetes mellitus during in third trimester Discharge Disposition: Home or Self Care Social [...] Info) Description 08/28/2023 8:00 AM CDT Appointment [facility] Heart [facility] [address] [place] [phone] Cristiane Patel MD [address] [place], [place] [address] 09/02/2023 11:45 AM CDT Appointment [facility] Maternal Medicine Center [place] [address] [place] [address] Luz Elena Betts MD [address] [place] [place] [address] 09/02/2023 12:15 PM CDT Office Visit [facility] Medicine [place] [address] [facility] [address] [place] [address] Luz Elena Betts MD [address] [place] [address] 09/08/2023 11:45 AM CDT Appointment [facility] Medicine [place] [address] [facility] [address] [place] [phone] Bassem Pathak MD [address] [place], [place] [address] Mitch Jernigan MD [address] [place], [place] [address] 09/08/2023 12:15 PM CDT Office Visit [facility] Medicine [place] [address] [facility] [address] [place] [phone] Bassem Pathak MD [address] [place], [place] [address] Mitch Jernigan MD [address] [place], [place] [address] documented as of this encounter Procedures Procedure Name Priority Date/Time Associated Diagnosis Comments [facility] BPP SINGLE Routine 08/25/2023 12:05 PM CDT Pre-existing type 2 diabetes mellitus during in third trimester documented in this encounter Results * MFM BPP Single (08/25/2023 12:05 PM CDT) Anatomical Region Laterality Modality Ultrasound 08/25/2023 11:4 8 AM CDT Impressions 08/25/2023 1:03 PM CDT IMPRESSION ----- 1) Gonzalez intrauterine at 33w 3d gestational age. 2) The BPP is reassuring. 3) Mild polyhydramnios is noted. Narrative 08/25/2023 1:03 PM CDT ?BPP ----- Pat. Name: SHEBA WILDER ? Study Date: ??08/25/2023 11:48am Pat. NO: ??[id number] ?Referring ??MD: HOMAR MEDRANO Site: ? Optometry Professor: Micha Gage RDMS : ??1985 ?Age: ?? [...] surveillance with twice weekly BPP, alternating between [facility] and [facility]. Return to primary provider for continued care. Thank-you for the opportunity to participate in the care of this patient. If you have questions regarding today's evaluation or if we can be of further service, please contact the Maternal- Medicine Center. anomalies may be present but not detected Procedure Note Luz Elena Betts MD - 08/25/2023 BPP ----- Pat. Name: SHEBA WILDER Study Date: 08/25/2023 11:48am Pat. NO: [id number] Referring MD: HOMAR MEDRANO Site: Optometry Professor: Micha Gage RDMS : 1985 Age: 37 [...] Continue surveillance with twice weekly [facility]. Return to primary provider for [...] Mild polyhydramnios is noted. Bassem Pathak MD IM MFM US ORDERABLE S documented in this encounter Visit Diagnoses Diagnosis Pre-existing type 2 diabetes mellitus during in third trimester documented in this encounter Care Teams Senior Librarian Relationship Specialty Start Date End Date Tre Ba MD [address] [place] [address] [address] [place], [place] [phone] PCP - General medical review specialist 01/15/22 Bassem Pathak MD [address] [address] [place] [address] Assigned OBGYN Provider 08/16/23 documented as of this encounter
--- OUTSIDE RECORDS SUMMARY | 2023-08-26 15:40 | XMS_ITS | Encounter Summary ---
Author Organization [place] Address [address] [place] [address] Care Team Providers Care Project Product Manager Name Role Phone Tre Ba MD Primary Care Provide r Reason for Referral * Consultation (Routine: Next available opening) - Pending Review Specialty Diagnoses / Procedures Referred By Contac t Referred To Contact Diagnoses related condition, antepartum Homar Medrano APRN CNP [facility] [address] [place] [address] Referral ID Status Reason Start Date Expiration Date V isits Requested Visits Authorized [id number] Pending Review 07/03/2023 07/02/2024 1 1 Comments AMA * Diagnostic Imaging Ultrasound (Routine) - Pending Review Specialty Diagnoses / Procedures Referred By Contac t Referred To Contact Radiology. Diagnoses related condition, antepartum Procedures MFM US Comprehensive Single Homar Medrano APRN CNP [facility] [address] [place] [address] Referral ID Status Reason Start Date Expiration Date V isits Requested Visits Authorized [id number] Pending Review 07/03/2023 07/02/2024 1 1 * Consultation (Routine: Next available opening) - Pending Review Specialty Diagnoses / Procedures Referred By Contac t Referred To Contact Diagnoses related condition, antepartum Homar Medrano APRN CNP [facility] [address] [place] [address] Rh Maternal Med [address] [facility] [address] [place] [address] Referral ID Status Reason Start Date Expiration Date V isits Requested Visits Authorized [id number] Pending Review 07/03/2023 07/02/2024 1 1 Question Answer Preferred Location: [facility] [place] 10/10/2023 Ultrasound Complete US (14-17.6 weeks GA) US PROC NONE MFM Issue Advanced Maternal Age *MUST request Genetic Counseling MFM MD Consultation (unrelated to Ultrasound findings): No Inflammatory Bowel Disease Clinic: Joint MFM and GI Consultation: No Chronic Kidney Disease: Joint MFM and Nephrology Consultation No Genetic Counseling Consultation: Yes fax Homar Medrano [facility], Comments There is no height or weight on file to calculate BMI. >> Patient may proceed with recommendations for further testing as directed by the Maternal Medicine Specialist >> >> If requesting Echo: MFM will determine appropriate location for exam due to indication. Please be aware that coverage of these services is subject to the terms and limitations of your health insurance plan. Call member services at your health plan with any benefit or coverage questions. Encounter Details Date Type Department Care Team (Late st Contact Info) Description 07/03/2023 Transcribe Orders [facility] Maternal Medicine Center [place] [address] [facility] [address] [place] [address] Homar Medrano APRN CNP [facility] [address] [place] [address] related condition, antepartum (Primary Dx) Social History Tobacco Use Types Packs/Day Years [...] AM CDT Appointment [facility] Heart Care [address] [place] [address] Cristiane Patel MD [address] [place] [address] 09/02/2023 11:45 AM CDT Appointment [facility] Maternal Medicine [place] [address] [place] [phone] Luz Elena Betts MD [address] [place], [place] [address] 09/02/2023 12:15 PM CDT Office Visit [facility] Maternal Medicine [place] [address] [place] [phone] Luz Elena Betts MD [address] [place] [address] 09/08/2023 11:45 AM CDT Appointment [facility] Maternal Medicine [facility] [address] [place] [address] Bassem Pathak MD [address] [place], [place] [address] Mitch Jernigan MD [address] [place] [address] 09/08/2023 12:15 PM CDT Office Visit [facility] Maternal Medicine Center [place] [address] [facility] [address] [place] [address] Bassem Pathak MD [address] [place] [address] Mitch Jernigan MD [address] [place] [address] Scheduled Referrals Name Type Priority Associated Diagnoses Orde r Schedule Mat Med Ctr Referral - Referral Routine: Next available opening related condition, antepartum Expected: 07/03/2023 (Approximate), Expires: 12/30/2023 [facility] Genetic Counseling Referral Routine: Next available opening related condition, antepartum Expected: 07/03/2023 (Approximate), Expires: 07/02/2024 documented as of this encounter Results * [facility] US Comprehensive Single (07/24/2023 2:13 PM [...] ? Study Date: ??07/24/2023 1:32pm Pat. NO: ??[id number] ?Referring ??MD: HOMAR MEDRANO Site: ??[facility] ? Public Finance Specialist: Sujatha Joyce RDMS : ??1985 ?Age: ?? [...] 3 lb 10 ?oz EFW by ?Hadlock ([id number]) Head / Face / Neck Biometry: Dusting And Brushing Machine Operator ? 3.6 ? mm CM ?5.7 ? [...] cava. Inferior vena cava. 3-vessel ? view. 1-tauvlj-krhrwqf view. Cardiac position. Cardiac size. Cardiac rhythm. [...] cell free DNA drawn. They will contact Meño when those results are available. We [...] are between 220-240. She is following a fish and wildlife technician and has met with a electrician bus. No one has started her on insulin [...] medical record, and communicating with other health acute care nurse practitioner and/or care coordination. Please see note for details. Procedure Note Cristiane Patel MD - 07/24/2023 Comprehensive ----- Pat. Name: JACK WILDER Study Date: 07/24/2023 1:32pm Pat. NO: [id number] Referring MD: HOMAR MEDRANO Site: [employer] Public Finance Specialist: Sujatha Joyce RDMS : 1985 Age: 37 [...] 3 lb 10 oz EFW by Hadlock ([id number]) Head / Face / Neck Biometry: Dusting And Brushing Machine Operator 3.6 mm CM 5.7 mm Nasal bone [...] Superior venacava. Inferior vena cava. 3-vessel view. 8-ulrxiw-uuijvyj view.Cardiac position. Cardiac size. Cardiac rhythm. Right [...] a diabetic educatorand has met with a electrician bus. No one has started her on insulin [...] electronic medical record, andcommunicating with other health acute care nurse practitioner and/or carecoordination. Please see note for details. [...] The BPP was 09/30. Homar Medrano APRN RAILWAY TRACK WORKER IMG M US ORDERABLES documented in this encounter Visit Diagnoses Diagnosis related condition, antepartum- Primary related condition, antepartum documented in this encounter Care Teams Project Product Manager Relationship Specialty Start Date End Date Tre Ba MD [address] [phone] PCP - General overhead door technician 01/15/22 documented as of this encounter
--- OUTSIDE RECORDS SUMMARY | 2023-08-26 15:40 | XMS_ITS | Encounter Summary ---
Author Organization [place] Address [address] [place] [address] Care Team Providers Care Pensions Retirement Plan Specialist Name Role Phone Tre Ba MD Primary Care Provide r Reason for Visit * Reason Onset Date Comments Results 08/03/2023 Low Risk Expande d NIPT Encounter Details Date Type Department Care Team (Late Contact Info) Description 08/03/2023 Telephone [facility] Maternal Medicine Center [address] [place] [phone] Laura Abdi GC [address] [place] [address] 400 [place] [address] Results (Low Risk Expanded NIPT) Social History Tobacco Use Types Packs/Day Years [...] Info) Description 08/28/2023 8:00 AM CDT Appointment [facility] Heart Care [address] [place] [address] Cristiane Patel MD [address] [place] [address] 400 [place] [address] 09/02/2023 11:45 AM CDT Appointment [facility] Medicine [place] [address] [place] [address] Luz Elena Betts MD [address] [place] [address] 09/02/2023 12:15 PM CDT Office Visit [facility] Maternal Medicine [place] [address] [facility] [address] [place] [address] Luz Elena Betts MD [address] [place] [address] 09/08/2023 11:45 AM CDT Appointment [facility] Medicine [place] [address] [facility] [address] [place] [phone] Bassem Pathak MD [address] [place], [place] [address] Mitch Jernigan MD [address] [place] [address] 09/08/2023 12:15 PM CDT Office Visit [facility] Medicine [place] [address] [facility] [address] [place] [phone] Bassem Pathak MD [address] [place], [place] [address] Mitch Jernigan MD [address] [place] [address] documented as of this encounter Visit Diagnoses Not on filedocumented in this encounter Care Teams Pensions Retirement Plan Specialist Relationship Specialty Start Date End Date Tre Ba MD [address] [address] PCP - General electric furnace operator 01/15/22 documented as of this encounter
--- OUTSIDE RECORDS SUMMARY | 2023-08-26 15:40 | XMS_ITS | Encounter Summary ---
Author Organization [place] Address [address] [facility] [place] [address] Care Team Providers Care Stock Crane Operator Name Role Phone Tre Ba MD Primary Care Provide r Bassem Pathak MD Unavailable [phone] Encounter Details Date Type Department Care Team (Latest Contact Info) Description 08/21/2023 Travel Social History Tobacco Use Types Packs/Day [...] Info) Description 08/28/2023 8:00 AM CDT Appointment [facility] Heart Care [address] [place] [phone] Cristiane Patle MD [address] [place] [address] 09/02/2023 11:45 AM CDT Appointment [facility] Maternal Medicine Center [place] [address] [facility] [address] [place] [phone] Luz Elena Betts MD [address] [place] [address] 09/02/2023 12:15 PM CDT Office Visit [facility] Medicine [place] [address] [facility] [address] [place] [phone] Luz Elena Betts MD [address] [place] [address] 09/08/2023 11:45 AM CDT Appointment [facility] Medicine [place] [address] [facility] [address] [place] [phone] Bassem Pathak MD [address] [place], [place] [address] Mitch Jernigan MD [address] [place] [address] 09/08/2023 12:15 PM CDT Office Visit [place] [address] [facility] [address] [place] [phone] Bassem Pathak MD [address] [place], [place] [address] Mitch Jernigan MD [address] [place], [place] [address] documented as of this encounter Visit Diagnoses Not on filedocumented in this encounter Care Teams Stock Crane Operator Relationship Specialty Start Date End Date Tre Ba MD [facility] TERRY PONCE [facility] [address] [place] [address] PCP - General machinist apprentice 01/15/22 Bassem Pathak MD [address] [place] [address] Assigned OBGYN Provider 08/16/23 documented as of this encounter
--- OUTSIDE RECORDS SUMMARY | 2023-08-26 15:40 | XMS_ITS | Encounter Summary ---
Author Organization [place] Address [address] [facility] [address] Care Team Providers Care Ship'S Carpenter Name Role Phone Tre Ba MD Primary Care Provide r Reason for Visit * Reason Comments Genetic Counseling * Consultation (Routine: Next available opening) - Pending Review Specialty Diagnoses / Procedures Referred By Contac t Referred To Contact Diagnoses related condition, antepartum Ilene Kaplan APRN [facility] [address] [place] [address] Referral ID Status Reason Start Date Expiration Date V isits Requested Visits Authorized [id number] Pending Review 07/03/2023 07/02/2024 1 1 Encounter Details Date Type Department Care Team (Late st Contact Info) Description 07/24/2023 12:45 PM CDT Office Visit [facility] [place] [address] [place] [address] Cristiane Patel MD [address] [place] [id number] Laura Abdi GC [address] [place] [address] Multigravida of advanced maternal age in third trimester (Primary Dx); related condition, antepartum Social History Tobacco Use Types Packs/Day Years [...] as of this encounter Progress Notes * Laura Abdi, GC - 07/24/2023 12:45 PM CDT [facility] Genetic Counseling Consult Patient: Sheba Wilder Date of : 1985 Date of Service: 07/24/23 Sheba was seen at the [facility] for genetic consultation. Theindication for genetic counseling is advanced maternal age. The patient was unaccompanied to this visit. The session was conducted in Zambian. IMPRESSION/ PLAN 1. Sheba has not had genetic screening in this but elected to have screening today. 2. During today's [facility] visit, Sheba had a blood draw for expanded non-invasive testing (also called NIPT, NIPS, or cell-free DNA) through [employer] ([employer]). The expanded NIPT screens for trisomy 21, 18, and 13 and select microdeletion syndromes, including 22q11.2 deletion syndrome. The patient opted to screen for sex chromosome aneuploidies, including reported sex. Results are expected in 1-2 weeks. The patient will be called with results and if they do not answer they requested adetailed message with results on their voicemail, including the predicted sex information. Sheba shared that her voicemail box is full and requested that, if a message cannot be left, an emaildiscussing the results be sent to [email or web address]. Sheba was informed that results, including sex, will be available in [employer]. 3. Sheba had a level II comprehensive anatomy ultrasound today. Please see the ultrasound report for further details. 4. [facility] recommends weekly BPPs starting next week. Her first BPP has been scheduled for 07/30/2023. HISTORY /Parity: Sheba's history is significant for: Four term deliveries with her ex One term delivery with a different prior partner One SAB with her her ex Two SABs with her current partner CURRENT Current Age: [age] year old Age at Delivery: 37 year old BROOKE: 10/10/2023, by Last Menstrual Period Gestational Age: 28w6d This is a single gestation. This was conceived spontaneously. No heavy bleeding, severe cramping, fevers, or exposures of concern were reported at today's visit. MEDICAL HISTORY Sheba has a reported medical history of type II diabetes. Her most recent HbA1c taken 07/01/2023 was 7.6%. The average has a 3-5% chance of having a baby with a defect. Diabetes in a individual increases that chance to 6-10% and possibly up to 20% if it is poorly controlled in thefirst trimester. These defects can include spinal cord defects (spina bifida), heart defects,skeletal defects, and defects in the urinary, reproductive, and digestive systems. Diabetes in the p regnancy can also lead to complications such as pre-eclampsia, polyhydramnios, and delivery. Additional monitoring is recommended in these pregnancies, please refer to the [facility] note for more details. FAMILY HISTORY A three-generation family history was obtained today and is scanned under the Media tab in [employer]. The family history was reported by Sheba. The following significant findings were reported today: Sheba has a nephew who is six years old and is not speaking much. She described what sounds to be developmental and speech delay in this family member. She shared he has not been evaluated for autism spectrum disorder. We discussed that developmental delay can be a feature of an underlying genetic condition. If a genetic condition is diagnosed this can make insurance coverage for therapies and other services easier. We discussed that Sheba can pass this information along to her brother if desired. 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 We discussed how recurrent loss can sometimes be due to an underlying cause. Common causes of recurrent loss include maternal factors, endocrine disorders, immune disorders, and chromosomal and single gene disorders. Without further information regarding an underlying cause for these relative's recurrent loss, an accurate risk assessment cannot be provided and the possibility of a familial chromosomal rearrangement cannot be ruled out. We discussed that if Sheba would like to hear more about testing that can be done in the setting of recurrent loss shecan reach out to [facility] or her OB. Sheba has a paternal aunt and a paternal uncle who both from colorectal cancer and were diagnosed under 50. Cancer most often occurs by chance, however some families seem to develop cancer more frequently than expected. Everyone has a risk to develop cancer, but individuals may be at an increased risk to develop cancer based on their family history. We discussed that early onset colorectal cancer can be associated with inherited cancer predisposition syndromes. Genetic counseling is available for cancer syndromes. Cancer family history, even without genetic testing, can change cancer screening recommendations for family members and aid in insurance coverage for access to them as well. The most informative individuals to complete cancer genetic counseling and genetic testing are those with a personal history of cancer or those closely related to the affected individuals. We reviewed that if the family wants more information they can contact the [facility] Cancer Risk Management Program ( ). We also reviewed the importance of ensuring Sheba's PCP is aware of this family history so appropriate colonoscopy recommendations can be provided. Otherwise, the reported family history is unremarkable for multiple miscarriages, stillbirths, defects, intellectual disabilities, autism spectrum disorder, developmental delays, cancer diagnosed under 50, known genetic conditions, and consanguinity. RISK ASSESSMENT FOR INHERITED CONDITIONS AND CARRIER SCREENING OPTIONS Expanded carrier screening is available to screen for autosomal recessive conditions and X-linked conditions in a large list of genes. Carrier screening does not test the but gives a risk assessment for the and future pregnancies to have the condition. Expanded carrier screeningis designed to identify carrier status for conditions that are primarily childhood or adolescent onset. Expanded carrier screening does not evaluate for adult-onset conditions such as hereditary cancer syndromes, dementia/Alzheimer's disease, or cardiovascular disease risk factors. Additionally, expanded carrier screening is not comprehensive for all known genetic diseases or inherited conditions. Carrier screening does not test for all genetic and health conditions or risk factors. Autosomal recessive conditions happen when a mutation has been inherited from the egg and sperm andinclude conditions like cystic fibrosis, thalassemia, hearing loss, spinal muscular atrophy, and more. We reviewed that when both biological parents carry a harmful genetic change in a gene associated with autosomal recessive inheritance, each of their pregnancies has a 1 in 4 (25%) chance to be affected by that condition. X-linked conditions happen when a mutation has been inherited from the eggand include conditions like fragile X syndrome.With X-linked conditions, the specific risk generally depends on the chromosomal sex of the fetus, with XY individuals (generally male) being most severely affected. [place] screening was reviewed. About [place] Screening The patient does NOT have a family history of known inherited conditions. This does NOT mean the patient and/or their partner is not a carrier of a condition. Approximately 90% of couples at an increased reproductive risk for an inherited condition have no family history of that condition. The patient has not had carrier screening previously. The patient declined the carrier screening options and after hearing a broad overview of carrier screening Sheba declined a thorough discussion of the options. They are aware the option will remain, and they can contact us if they would like topursue screening. RISK ASSESSMENT FOR CHROMOSOME CONDITIONS We explained that the risk for chromosome abnormalities increases with maternal age. We discussed specific features of common chromosome abnormalities, including Down syndrome, trisomy 13, trisomy 18, and sex chromosome trisomies. At age 35 at midtrimester, the risk to have a baby with Down syndrome is 1 in 274. At age 35 at midtrimester, the risk to have a baby with any chromosome abnormality is 1 in 135. We also discussed that current ACMG guidelines recommend that screening for 22q11.2 deletion syndrome be offered to all patients. 22q11.2 deletion syndrome has an estimated prevalence of 1 in 990 to 1 in 2148 (0.05-0.1%). Risk is not thought to increase with maternal age. Clinical featuresare variable but include congenital heart defects, cleft palate, developmental delays, immune system deficiencies, and hearing loss. Approximately 90% of cases are de pricila (a sporadic new change in apregnancy). Cell-free DNA screening for 22q11.2 deletion syndrome is available with the inclusion of other microdeletion syndromes (expanded NIPT through [employer] games). At this time, it is not possible to only screen for 22q11.2 deletion syndrome without the additional microdeletion syndromes (1p36, 4p, 5p, 15q11). We discussed the limitations of cell-free DNA screening in detecting microdeletions, there is less data about the performance of cell-free DNA screening for more rare microdeletions and the chance forfalse positives or negatives may be increased. We also discussed that microdeletion syndromes outside of 22q11.2 are not part of universal screening guidelines. Sheba has not had genetic screening in this but elected to have screening today. GENETIC TESTING OPTIONS FOR CHROMOSOMAL CONDITIONS Genetic testing during a includes screening and diagnostic procedures. Screening tests are non-invasive which means no risk to the and includes ultrasounds and blood work. The benefits and limitations of screening were reviewed. Screening tests provide a risk assessment (chance) specific to the for certain chromosome abnormalities but cannot definitively diagnose or exclude a chromosome abnormality. Follow-up genetic counseling and consideration of diagnostic testing is recommended with any abnormal screening result. Diagnostic testing during a is more certain and can test for more conditions. However, the tests do have a risk of miscarriage that requires careful consideration. These tests can detect chromosome ab normalities with greater than 99% certainty. Results can be compromised by maternal cell contamination or mosaicism and are limited by the resolution of current genetic testing technology. There is no screening or diagnostic test that detects all forms of defects or intellectual disability. We discussed the following screening options: Non-invasive testing (NIPT) Also called cell-free DNA screening because it detects chromosomes from the placenta in the person's blood Can be done any time after 10 weeks gestation Screens for trisomy 21, trisomy 18, trisomy 13, and sex chromosome aneuploidies Expanded NIPT also allows for reflex to include other microdeletion conditions and rare autosomal trisomies if an indication would arise later in the . Sheba opted to pursue expanded NIPT screening for microdeletion conditions. Cannot screen for open neural tube defects, maternal serum AFP after 15 weeks is recommended We discussed the following ultrasound options: Comprehensive level II ultrasound ( Anatomy Ultrasound) Ultrasound done between 18-20 weeks gestation Screens for major defects and markers for aneuploidy (like trisomy 21 and trisomy 18) Includes looking at the fetus/baby's growth, heart, organs (stomach, kidneys), placenta, and amniotic fluid We discussed the following diagnostic options: Amniocentesis Invasive diagnostic procedure done after 15 weeks gestation The procedure collects a small sample of amniotic fluid for the purpose of chromosomal testing and/or other genetic testing Diagnostic result; more than 99% sensitivity for chromosome abnormalities Testing for AFP in the amniotic fluid can test for open neural tube defects It was a pleasure to be involved with Sheba???s care. [id number] time of the meeting was 30 minutes. Laura Abdi MS, [facility] Maternal Medicine Office: [phone] MFM: [phone] [facility] MFM documented in this encounter Plan of Treatment Upcoming Encounters Date Type Department Care Team (Late st Contact Info) Description 08/28/2023 8:00 AM CDT Appointment [facility] [address] [place] [address] Cristiane Patel MD [address] [place], [place] [id number] 09/02/2023 11:45 AM CDT Appointment [facility] [address] [place] [address] [phone] Luz Elena Betts MD [address] [place], [place] [address] 09/02/2023 12:15 PM CDT Office Visit [facility] [address] [place] [address] [phone] Luz Elena Betts MD [address] [place], [place] [address] 09/08/2023 11:45 AM CDT Appointment [facility] [address] [place] [address] [phone] Bassem Pathak MD [address] [place], [place] [id number] Mitch Jernigan MD [address] [place], [place] [address] 09/08/2023 12:15 PM CDT Office Visit [facility] [place] [address] [place] [address] Bassem Pathak MD [address] [place], [place] [address] Mitch Jernigan MD [address] [place], [place] [address] documented as of this encounter Results * [employer] Non-Invasive Screening???Prequel (07/24/2023 2:49 PM CDT) See Scanned Result t-Art NON-INVASIVE SCREENING PREQUEL-Scann ed 08/02/2023 7:16 PM CDT [employer] Blood STRUCTURE OF RIGHT UPPER LIMB / Unknown Venipuncture / Unknown 07/24/2023 2:49 PM CDT 07/24/2023 2:49 PM CDT Laura Abdi GC LAB - BLOOD ORDERABL ES [employer] [address] [place] [address], [facility] [phone] documented in this encounter Visit Diagnoses Diagnosis Multigravida of advanced maternal age in third trimester- Primary related condition, antepartum documented in this encounter Care Teams Ship'S Carpenter Relationship Specialty Start Date End Date Tre Ba MD Michael [facility] [address] [place], [place] [id number] PCP - General stopper maker 01/15/22 documented as of this encounter
--- OUTSIDE RECORDS SUMMARY | 2023-08-26 15:40 | XMS_ITS | Encounter Summary ---
Author Organization [place] Address [address] [place] [address]. [place] [address] Care Team Providers Care Immigration Judge Name Role Phone Tre Ba MD Primary Care Provide r Reason for Referral * (Routine) - Authorized Specialty Diagnoses / Procedures [facility] To Contact [facility] Diagnoses with type 2 diabetes mellitus in third trimester Procedures Echo (TTE) Complete Cristiane Patel MD [address] [place] [address] [facility] [address] [place] [phone] Referral ID Status Reason Start Date Expiration Date V isits Requested Visits Authorized [id number] Authorized 07/24/2023 07/23/2024 1 1 * Diagnostic Imaging Ultrasound (Routine) - Pending Review Specialty Diagnoses / Procedures Referred By Contac t Referred To Contact Radiology. Diagnoses Diabetes mellitus, type 2 (H) Polyhydramnios affecting Procedures MFM US Comprehensive Single F/U Cristiane Patel MD [address] [place] [address] Referral ID Status Reason Start Date Expiration Date V isits Requested Visits Authorized [id number] Pending Review 07/24/2023 07/23/2024 1 1 * Diagnostic Imaging Ultrasound (Routine) - Pending Review Specialty Diagnoses / Procedures Referred By Contac t Referred To Contact Radiology. Diagnoses Diabetes mellitus, type 2 (H) Polyhydramnios affecting Procedures [facility] Cristiane Rubin MD [address] [place] [address] Referral ID Status Reason Start Date Expiration Date V isits Requested Visits Authorized [id number] Pending Review 07/24/2023 07/23/2024 1 1 * Diagnostic Imaging Ultrasound (Routine) - Pending Review Specialty Diagnoses / Procedures Referred By Contac t Referred To Contact Radiology. Diagnoses Diabetes mellitus, type 2 (H) Polyhydramnios affecting Procedures [facility] Cristiane Rubin MD [address] [place] [address] Referral ID Status Reason Start Date Expiration Date V isits Requested Visits Authorized [id number] Pending Review 07/24/2023 07/23/2024 1 1 Reason for Visit * Reason Comments Ultrasound L2- AMA, T2DM Encounter Details Date Type Department Care Team (Late st Contact Info) Description 07/24/2023 2:00 PM CDT Office Visit [facility] [place] [address] [place] [address] [place] [address] Cristiane Patel MD [address] [place] [phone] with type 2 diabetes mellitus in third trimester (Primary Dx); Polyhydramnios affecting Social History Tobacco Use Types Packs/Day Years [...] as of this encounter Progress Notes * Cristiane Patel MD - 07/24/2023 2:00 PM CDT The patient was seen for an ultrasound in the Maternal[facility] Center at the [facility] today. For a detailed report of the ultrasound examination, please see the ultrasound report which can be found under the imaging tab. If you have questions regarding today's evaluation or if we can be of further service, please contact the Maternal- Medicine Center. Cristiane Patel MD Clerical Grader, PATIENT SERVICE TECHNICIAN PST Maternal- Medicine [phone] (Pager) documented in this encounter Nursing Notes * Katina Espinoza RN - 07/24/2023 2:00 PM CDT Patient reports positive movement, no pain, no contractions, leaking of fluid, or bleeding. Reports blood sugar values elevated- fasting this morning was 175 reports after meals often 220. Has appointment in [place] next week to discuss starting insulin. Patient denies headache, visual changes, nausea/vomiting, epigastric pain related to preeclampsia. SBAR given to TREVOR GRESHAM, see their note in Epic. documented in this encounter Plan of Treatment Upcoming Encounters Date Type Department Care Team (Late st Contact Info) Description 08/28/2023 8:[address] [facility] [address] [place] [address] Cristiane Patel MD [address] [facility] [address] [place], [place] [address] 09/02/2023 11:45 AM CDT Appointment [facility] [place] [address] [facility] [address] [place] [address] Luz Elena Betts MD [address] [place], [place] [address] 09/02/2023 12:15 PM CDT Office Visit [facility] [place] [address] [place] [phone] Luz Elena Betts MD [address] [place], [place] [address] 09/08/2023 11:45 AM CDT Appointment [facility] Medicine [place] [address] [place] [phone] Bassem Pathak MD [address] [place], [place] [phone] Mitch Jernigan MD [address] [place], [place] [address] 09/08/2023 12:15 PM CDT Office Visit [facility] Medicine [place] [address] [place] [phone] Bassem Pathak MD [address] [place], [place] [phone] Mitch Jernigan MD [address] [place], [place] [phone] Scheduled Orders Name Type Priority Associated Diagnoses Orde r Schedule Echo (TTE) Complete Echocardiography Routine with type 2 diabetes mellitus in third trimester Expected: 08/07/2023 (Approximate), Expires: 07/23/2024 documented as of this encounter Results * [facility] US Comprehensive Single F/U (08/21/2023 12:39 [...] ? Study Date: ??08/21/2023 11:58am Pat. NO: ??[id number] ?Referring ??MD: HOMAR MEDRANO Site: ? Eye Dropper Assembler: Yamila Dutton RDMS : ??1985 ?Age: ?? [...] lb 4 ?oz EFW by ? Hadlock ([id number]) Head / Face / Neck Biometry: Fiberglass Product Tester ?4.4 ? mm ANATOMY ----- The following [...] Heart / Thorax ?RVOT view. LVOT view. 9-umtgwz-awrzgug view. Spine ?Cervical spine. sex: male. MATERNAL STRUCTURES ----- Cervix ?Suboptimal Right Ovary ?Not examined Left Ovary ?Not examined RECOMMENDATION ----- We discussed the findings on today's ultrasound with the patient. The patient has the following ultrasounds already scheduled: 1) BPP once weekly at your clinic. 2) BPP once weekly at [facility]. 3) echo on 08/28/23 with Pediatric Cardiology. 4) growth assessment at [facility] in 4 weeks. Given the polyhydramnios [...] EDWARDS Study Date: 08/21/2023 11:58am Pat. NO: [id number] Referring MD: HOMAR MEDRANO Site: Eye Dropper Assembler: Yamila Dutton RDMS : 1985 Age: 37 [...] EFW (lb,oz) 6 lb 4oz EFW by Hadlock([id number]) Head / Face / Neck Biometry: Fiberglass Product Tester 4.4mm ANATOMY ----- The following structures appear normal: Head / Neck Cranium. Head size. Head shape.Lateral ventricles. Midline falx. Cavum septi pellucidi. Cerebellum.Cisterna magna. Thalami. Face Profile. Heart / Thorax 4-chamber view. Diaphragm. Abdomen Stomach. Kidneys. Bladder. Spine Thoracic spine. Lumbar spine.Sacral spine. The following structures were documented previously: Face Lips. Nose. Heart / Thorax RVOT view. LVOT view. 9-kizplb-dhqcnpbxnam. Spine Cervical spine. sex: male. MATERNAL STRUCTURES ----- Cervix Suboptimal Right Ovary Not examined Left Ovary Not examined RECOMMENDATION ----- We discussed the findings on today's ultrasound with the patient. The patient has the following ultrasounds already scheduled: 1) BPP once weekly at your clinic. 2) BPP once weekly at [facility]. 3) echo on 08/28/23 with Pediatric Cardiology. 4) growth assessment at [facility] in 4 weeks. Given the polyhydramnios [...] 5. BPP is reassuring. Cristiane Patel MD [facility] US ORDERABLE [facility] BPP Single (08/14/2023 3:54 PM CDT) Anatomical Region Laterality Modality Ultrasound 08/14/2023 3:35 PM CDT Impressions 08/14/2023 4:06 PM CDT IMPRESSION ----- 1) Mild polyhydramnios. 2) BPP is reassuring. Narrative 08/14/2023 4:06 PM CDT ?BPP ----- Pat. Name: JACK EDWARDS ? Study Date: ??08/14/2023 3:35pm Pat. NO: ??[id number] ?Referring ??MD: HOMAR MEDRANO Site: ? Eye Dropper Assembler: Gemma Pinzon RDMS : ??1985 ?Age: ?? [...] has not contacted your office or her healthcare network consultant. Currently we are not reviewing her blood [...] MD - 08/14/2023 BPP ----- Pat. Name: JACK EDWARDS Study Date: 08/14/2023 3:35pm Pat. NO: [id number] Referring MD: HOMAR MEDRANO Site: Eye Dropper Assembler: Gemma Pinzon RDMS : 1985 Age: 37 [...] and has notcontacted your office or her healthcare network consultant. Currently we are not reviewing her blood [...] 2) BPP is reassuring. Cristiane Patel MD [facility] US ORDERABLE S * [facility] BPP Single (07/30/2023 3:46 PM CDT) Anatomical Region Laterality Modality Ultrasound 07/30/2023 3:27 PM CDT Impressions 07/30/2023 4:06 PM CDT IMPRESSION ----- Patient is here for antepartum testing secondary to T2DM and polyhydramnios. 1) Intrauterine at 29 5/7 weeks gestational age. 2) The BPP (performed for maternal T2DM) is reassuring. 3) The amniotic fluid volume appears normal. Narrative 07/30/2023 4:06 PM CDT ?BPP ----- Pat. Name: CORNELIA EDWARDSABEL ? Study Date: ??07/30/2023 3:27pm Pat. NO: ??[id number] ?Referring ??MD: HOMAR MEDRANO Site: ??[place] ? Eye Dropper Assembler: Lashonda Barlow RDMS : ??1985 ?Age: ?? 37 ----- INDICATION ----- Advanced maternal age. Type 2 diabetes - on insulin History of gestational hypertension. Mild polyhydramnios. METHOD ----- Transabdominal ultrasound examination. View: Sufficient ----- [place] . Number of fetuses: 1 DATING ----- ? Date ?Details ?Gest. age ?BROOKE LMP ?01/03/2023 ?29 w + 5 d ? 10/10/2023 Prior assessment ? 03/03/2023 ?GA: 8 w + 3 d ? 29 w + 5 d ? 10/10/2023 Assigned dating ?Dating performed on 07/24/2023, based on the LMP ?29 w + 5 d ? 10/10/2023 GENERAL EVALUATION ----- Cardiac activity present. FHR 146 bpm. movements visualized. Presentation cephalic. Placenta Anterior, No Previa, > 2 cm from internal os. Umbilical cord previously studied. AMNIOTIC FLUID ASSESSMENT ----- Amount of AF: Polyhydramnios, Mild MVP 10.8 cm. ALEX 27.8 cm. Q1 10.0 cm, Q2 9.4 cm, Q3 2.8 cm, Q4 5.6 cm BIOPHYSICAL PROFILE ----- 2: breathing movements 2: Gross body movements 2: tone 2: Amniotic fluid volume 8/8 Biophysical profile score Interpretation: normal RECOMMENDATION ----- Continue surveillance with growth scans every 4 weeks and surveillance with twice weekly BPP, once here with MFM and once with PCP in [place]. Recommend delivery for GDM A2 and pregestational: ? Well controlled: [id number] ? Poorly controlled: [id number] ? Failed in-hospital attempt at control: [id number] Thank you for the opportunity to participate in the care of this patient. If you have questions regarding today's evaluation or if we can be of further service, please contact the Maternal- Medicine Center. anomalies may be present but not detected Procedure Note Bassem Pathak MD - 07/30/2023 BPP ----- Pat. Name: CASTRO EDWARDSL Study Date: 07/30/2023 3:27pm Pat. NO: [id number] Referring MD: HOMAR MEDRANO Site: [facility] Eye Dropper Assembler: Lashonda Barlow RDMS : 1985 Age: 37 ----- INDICATION ----- Advanced maternal age. Type 2 diabetes - on insulin History of gestational hypertension. Mild polyhydramnios. METHOD ----- Transabdominal ultrasound examination. View: Sufficient ----- [place] . Number of fetuses: 1 DATING ----- DateDetailsGest. age BROOKE LMP w + 5 d 10/10/2023 Prior assessment 03/03/2023 GA: 8 w +3 d29 w + 5 d 10/10/2023 Assigned dating Dating performed on 07/24/2023, based onthe LMP 29 w +5 d 10/10/2023 GENERAL EVALUATION ----- Cardiac activity present. FHR 146 bpm. movements visualized. Presentation cephalic. Placenta Anterior, No Previa, > 2 cm from internal os. Umbilical cord previously studied. AMNIOTIC FLUID ASSESSMENT ----- Amount of AF: Polyhydramnios, Mild MVP 10.8 cm. ALEX 27.8 cm. Q1 10.0 cm, Q2 9.4 cm, Q3 2.8 cm, Q4 5.6 cm BIOPHYSICAL PROFILE ----- 2: breathing movements 2: Gross body movements 2: tone 2: Amniotic fluid volume 09/30 Biophysical profile score Interpretation: normal RECOMMENDATION ----- Continue surveillance with growth scans every 4 weeks andfetal surveillance with twice weekly BPP, once here with [facility] and once withPCP in [place]. Recommend delivery for GDM A2 and pregestational: ? Well controlled: [id number] ? Poorly controlled: [id number] ? Failed in-hospital attempt at control: [id number] Thank you for the opportunity to participate in the care of this patient.If you have questions regarding today's evaluation or if we can be offurther service, please contact the Maternal- Medicine Center. anomalies may be present but not detected IMPRESSION ----- Patient is here for antepartum testing secondary to T2DM andpolyhydramnios. 1) Intrauterine at 29 5/7 weeks gestational age. 2) The BPP (performed for maternal T2DM) is reassuring. 3) The amniotic fluid volume appears normal. Cristiane WILLG M US ORDERABLE S documented in this encounter Visit Diagnoses Diagnosis with type 2 diabetes mellitus in third trimester- Primary Polyhydramnios affecting Polyhydramnios affecting Polyhydramnios affecting Polyhydramnios affecting documented in this encounter Care Teams Immigration Judge Relationship Specialty Start Date End Date Tre Ba MD [facility] TERRY PONCE [address] [address] PCP - General spare hand carding 01/15/22 documented as of this encounter
--- OUTSIDE RECORDS SUMMARY | 2023-08-26 15:40 | XMS_ITS | Encounter Summary ---
Author Organization [place] Address [address] [place] [address]. [place] [address] Care Team Providers Care Cosmetic Counselor Name Role Phone Tre Ba MD Primary Care Provide r Encounter Details Date Type Department Care Team (Late Contact Info) Description 07/03/[address] [facility] [address] [place] [phone] Scan, Non-Provider Social History Tobacco Use [...] Upcoming Encounters Date Type Department Care Team ([facility] Contact Info) Description 08/28/2023 8:00 AM CDT Appointment [facility] [address] [place] [phone] Cristiane Patel MD [address] [place] [address] 09/02/2023 11:45 AM CDT Appointment [facility] [place] [address] [facility] [address] [place] [address] Luz Elena Betts MD [address] [place] [address] 09/02/2023 12:15 PM CDT Office Visit [facility] Maternal Medicine [facility] [address] [facility] [address] [place] [phone] Luz Elena Betts MD [address] [place], [place] [address] 09/08/2023 11:45 AM CDT Appointment [facility] Medicine [facility] [address] [place] [phone] Bassem Pathak MD [address] [place] [id number] Mitch Jernigan MD [address] [place], [place] [address] 09/08/2023 12:15 PM CDT Office Visit [facility] Medicine [place] [address] [facility] [address] [place] [phone] Bassem Pathak MD [address] [place], [place] [address] Mitch Jernigan MD [address] [place], [place] [address] documented as of this encounter Visit Diagnoses Not on filedocumented in this encounter Care Teams Cosmetic Counselor Relationship Specialty Start Date End Date Tre Ba MD [facility] TERRY PONCE [facility] [address] [place] [address] PCP - General crime prevention police officer 01/15/22 documented as of this encounter
--- OUTSIDE RECORDS SUMMARY | 2023-08-26 15:40 | XMS_ITS | Encounter Summary ---
Author Organization [place] Address [facility] [place] [address] Care Team Providers Care Accounting Technician Name Role Phone Tre Ba MD Primary Care Provide r Reason for Referral * Diagnostic Imaging Ultrasound (Routine) - Pending Review Specialty Diagnoses / Procedures Referred By Contac t Referred To Contact Radiology. Diagnoses Pre-existing type 2 diabetes mellitus during in third trimester Procedures [facility] Bassem Dhillon MD [address] [facility] [address] [address] Referral ID Status Reason Start Date Expiration Date V isits Requested Visits Authorized [id number] Pending Review 07/30/2023 07/29/2024 1 1 * Diagnostic Imaging Ultrasound (Routine) - Pending Review Specialty Diagnoses / Procedures Referred By Contac t Referred To Contact Radiology. Diagnoses Pre-existing type 2 diabetes mellitus during in third trimester Procedures Bassem Ackerman MD [address] [address] Referral ID Status Reason Start Date Expiration Date V isits Requested Visits Authorized [id number] Pending Review 07/30/2023 07/29/2024 1 1 * Diagnostic Imaging Ultrasound (Routine) - Pending Review Specialty Diagnoses / Procedures Referred By Contac t Referred To Contact Radiology. Diagnoses Pre-existing type 2 diabetes mellitus during in third trimester Procedures [facility] Bassem Dhillon MD [address] [place] [address] Referral ID Status Reason Start Date Expiration Date V isits Requested Visits Authorized [id number] Pending Review 07/30/2023 07/29/2024 1 1 Reason for Visit * Reason Comments Ultrasound BPP: DM2 - poorly co ntrolled Encounter Details Date Type Department Care Team (Late st Contact Info) Description 07/30/2023 4:00 PM CDT Office Visit [facility] [address] [place] [address] Bassem Pathak MD [address] [place], [place] [phone] Pre-existing type 2 diabetes mellitus during in third trimester (Primary Dx) Social History Tobacco Use Types [...] as of this encounter Progress Notes * Bassem Pathak MD - 07/30/2023 4:00 PM CDT Please refer to ultrasound report under 'Imaging' Studies of 'Chart Review' tabs. Bassem Pathak M.D. documented in this encounter Nursing Notes * Michelle Gallo RN - 07/30/2023 4:00 PM CDT Patient presents to [facility] for BPP at 29w5d due to DM2 - poorly controlled. Positive movement. Denies LOF, vaginal bleeding or cramping/contractions. SBAR given to TREVOR GRESHAM, see their note in Epic. documented in this encounter Plan of Treatment Upcoming Encounters Date Type Department Care Team (Late st Contact Info) Description 08/28/2023 8:00 AM CDT Appointment [facility] Heart Care [address] [place] [address] Cristiane Patel MD [address] [place], [place] [address] 09/02/2023 11:45 AM CDT Appointment [facility] Maternal Medicine [facility] [address] [facility] [address] [place] [phone] Luz Elena Betts MD [address] [place] [phone] 09/02/2023 12:15 PM CDT Office Visit [facility] Maternal Medicine [facility] [address] [facility] [address] [place] [phone] Luz Elena Betts MD [address] [place], [place] [address] 09/08/2023 11:45 AM CDT Appointment [facility] Maternal Medicine [facility] [address] [facility] [address] [place] [phone] Bassem Pathak MD [address] [place], [place] [address] Mitch Jernigan MD [address] [place], [place] [address] 09/08/2023 12:15 PM CDT Office Visit [facility] Maternal Medicine [facility] [address] [facility] [address] [place] [address] Bassem Pathak MD [address] [place] [address] Mitch Jernigan MD [address] [place] [address] Scheduled Orders Name Type Priority Associated Diagnoses Orde r Schedule M BPP Single Imaging Routine Pre-existing type 2 diabetes mellitus during in third trimester Expected: 09/04/2023 (Approximate), Expires: 05/29/2024 MF BPP Single Imaging Routine Pre-existing type 2 diabetes mellitus during in third trimester Expected: 09/11/2023 (Approximate), Expires: 05/29/2024 documented as of this encounter Results * M BPP Single (08/25/2023 12:05 PM CDT) Anatomical Region Laterality Modality Ultrasound 08/25/2023 11:4 8 AM CDT Impressions 08/25/2023 1:03 PM CDT IMPRESSION ----- 1) Gonzalez intrauterine at 33w 3d gestational age. 2) The BPP is reassuring. 3) Mild polyhydramnios is noted. Narrative 08/25/2023 1:03 PM CDT ?BPP ----- Pat. Name: SHEBA WILDER ? Study Date: ??08/25/2023 11:48am Pat. NO: ??[id number] ?Referring ??MD: HOMAR MEDRANO Site: ? Quarry Plug And Feather Driller: Micha Gage RDMS : ??1985 ?Age: ?? [...] movements 2: tone 2: Amniotic fluid volume /8 Biophysical profile score Interpretation: normal RECOMMENDATION ----- We discussed the findings on today's ultrasound with the patient. Continue surveillance with twice weekly BPP, alternating between [facility] and [facility]. Return to primary provider for continued care. [...] WILDER Study Date: 08/25/2023 11:48am Pat. NO: [id number] Referring MD: HOMAR MEDRNAO Site: Quarry Plug And Feather Driller: Micha Gage RDMS : 1985 Age: 37 [...] movements 2: tone 2: Amniotic fluid volume 8 Biophysical profile score Interpretation: normal RECOMMENDATION ----- We discussed the findings on today's ultrasound with the patient. Continue surveillance with twice weekly [facility]. Return to primary provider for continued care. [...] Mild polyhydramnios is noted. Bassem Pathak MD [facility] US ORDERABLE S documented in this encounter Visit Diagnoses Diagnosis Pre-existing type 2 diabetes mellitus during in third trimester- Primary Pre-existing type 2 diabetes mellitus during in third trimester documented in this encounter Care Teams Accounting Technician Relationship Specialty Start Date End Date Tre Ba MD [facility] TERRY JOHNSON [address] [place] [id number] PCP - General captain room service 01/15/22 documented as of this encounter
--- OUTSIDE RECORDS SUMMARY | 2023-08-26 15:40 | XMS_ITS | Encounter Summary ---
Author Organization [place] Address [address] [place] [address]. [place] [address] Care Team Providers Care Shank Breaker Name Role Phone Tre Ba MD Primary Care Provide r Encounter Details Date Type Department Care Team (Late st Contact Info) Description 07/24/2023 2:40 PM CDT Lab [facility] [address] [place] [phone] Cristiane Patel MD [address] [place], [place] [phone] Multigravida of advanced maternal age in third trimester Social History Tobacco Use Types Packs/Day Years [...] Info) Description 08/28/2023 8:00 AM CDT Appointment [facility] [address] [place] [phone] Cristiane Patel MD [address] [place], [place] [address] 09/02/2023 11:45 AM CDT Appointment [facility] Medicine [place] [address] [facility] [address] [place] [phone] Luz Elena Betts MD [address] [place] [address] 09/02/2023 12:15 PM CDT Office Visit [facility] Medicine [place] [address] [facility] [address] [place] [phone] Luz Elena Betts MD [address] [place], [place] [address] 09/08/2023 11:45 AM CDT Appointment [facility] [place] [address] [facility] [address] [place] [phone] Bassem Pathak MD [address] [place], [place] [address] Mitch Jernigan MD [address] [place], [place] [address] 09/08/2023 12:15 PM CDT Office Visit [facility] [place] [address] [facility] [address] [place] [phone] Bassem Pathak MD [address] [place], [place] [address] Mitch Jernigan MD [address] [place], [place] [address] documented as of this encounter Procedures Procedure Name Priority Date/Time Associated Diagnosis Comments MYRIAD NON-INVASIVE SCREENING PREQUEL Routine 07/24/2023 2:49 PM CDT Multigravida of advanced maternal age in third trimester documented in this encounter Results * YCD [facility]imedia Non-Invasive Screening???Prequel (07/24/2023 2:49 PM CDT) See Scanned Result [employer] NON-INVASIVE SCREENING PREQUEL-Scann ed 08/02/2023 7:16 PM CDT [employer] Blood STRUCTURE OF RIGHT UPPER LIMB / Unknown Venipuncture / Unknown 07/24/2023 2:49 PM CDT 07/24/2023 2:49 PM CDT Laura Abdi GC LAB - BLOOD ORDERABL ES [employer] [address] [place] [address], [facility] [phone] documented in this encounter Visit Diagnoses Diagnosis Multigravida of advanced maternal age in third trimester documented in this encounter Care Teams Shank Breaker Relationship Specialty Start Date End Date Tre Ba MD [address] [address] PCP - General bull gang supervisor 01/15/22 documented as of this encounter
--- OUTSIDE RECORDS SUMMARY | 2023-08-26 15:40 | XMS_ITS | Encounter Summary ---
Author Organization [place] Address [address] [facility] [place] [address] Care Team Providers Care Speed Belt Sander Tender Name Role Phone Tre Ba MD Primary Care Provide r Bassem Pathak MD Unavailable Reason for Visit * Reason Comments Ultrasound RL2/BPP- DM2 poor co ntrol Encounter Details Date Type Department Care Team (Late st Contact Info) Description 08/21/2023 12:15 PM CDT Office Visit [facility] Maternal Medicine Center [place] [address] [facility] [address] [place] [address] Cristiane Patel MD [address] [place] [address] Mitch Jernigan MD [address] [place] [address] Pre-existing type 2 diabetes mellitus [...] as of this encounter Progress Notes * Mitch Jernigan MD - 08/21/2023 12:15 PM CDT Please see Imaging tab under Chart Review for details of today's US at the [facility]. Mitch Jernigan MD Maternal- Medicine documented in this encounter Nursing Notes * Laura Vila RN - 08/21/2023 12:15 PM CDT Pt at [facility] for ultrasound- see detailed report under imaging tab. Pt reports positive movement, denies other concerns at this time. 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 SBAR given to MD. documented in this encounter Plan of Treatment Upcoming Encounters Date Type Department Care Team (Late st Contact Info) Description 08/28/2023 8:00 AM CDT Appointment [facility] [address] [place] [place] [address] Cristiane Patel MD [address] [place], [place] [address] 09/02/2023 11:[address] [facility] Maternal Medicine [facility] [address] [place] [phone] Luz Elena Betts MD [address] [place], [place] [address] 09/02/2023 12:15 PM CDT Office Visit [facility] Maternal Medicine [facility] [address] [facility] [address] [place] [phone] Luz Elena Betts MD [address] [place], [place] [address] 09/08/2023 11:[address] [facility] Medicine [facility] [address] [facility] [address] [place] [phone] Bassem Pathak MD [address] [place], [place] [address] Mitch Jernigan MD [address] [place], [place] [address] 09/08/2023 12:15 PM CDT Office Visit [facility] [address] [facility] [address] [place] [phone] Bassem Pathak MD [address] [place], [place] [address] Mitch Jernigan MD [address] [place], [place] [address] documented as of this encounter Visit Diagnoses Diagnosis Pre-existing type 2 diabetes mellitus during in third trimester- Primary Polyhydramnios affecting documented in this encounter Care Teams Speed Belt Sander Tender Relationship Specialty Start Date End Date Tre Ba MD [address] [place] [address] [address] [place], [place] [phone] PCP - General test preparer 01/15/22 Bassem Pathak MD [address] [place], [place] [phone] Assigned OBGYN Provider 08/16/23 documented as of this encounter
--- OUTSIDE RECORDS SUMMARY | 2023-08-26 15:40 | XMS_ITS | Encounter Summary ---
Author Organization [place] Address [address] [place] [address] Care Team Providers Care Ergonomics Engineer Name Role Phone Tre Ba MD Primary Care Provide r Encounter Details Date Type Department Care Team (Latest Contact Info) Description 07/24/2023 Travel Social History Tobacco Use Types Packs/Day [...] Description 08/28/2023 8:[address] [facility] [address] [place] [phone] Cristiane Patel MD [address] [place], [place] [address] 09/02/2023 11:45 AM CDT Appointment [facility] [place] [address] [facility] [address] [place] [phone] Luz Elena Betts MD [address] [place], [place] [address] 09/02/2023 12:15 PM CDT Office Visit [facility] Maternal Medicine [place] [address] [place] [phone] Luz Elena Betts MD [address] [place] [address] 09/08/2023 11:45 AM CDT Appointment [facility] Medicine [facility] [address] [place] [phone] Bassem Pathak MD [address] [place], [place] [phone] Mitch Jernigan MD [address] [place], [place] [address] 09/08/2023 12:15 PM CDT Office Visit [facility] Medicine [place] [address] [place] [phone] Bassem Pathak MD [address] [place], [place] [phone] Mitch Jernigan MD [address] [place], [place] [phone] documented as of this encounter Visit Diagnoses Not on filedocumented in this encounter Care Teams Ergonomics Engineer Relationship Specialty Start Date End Date Tre Ba MD [facility] [address] [phone] PCP - General press clipper 01/15/22 documented as of this encounter
--- OUTSIDE RECORDS SUMMARY | 2023-08-26 15:40 | XMS_ITS | Encounter Summary ---
Author Organization [place] Address [address] [facility] [place] [address] Care Team Providers Care Parking Garage Manager Name Role Phone Tre Ba MD Primary Care Provide r Reason for Referral * Diagnostic Imaging Ultrasound (Routine) - Pending Review Specialty Diagnoses / Procedures Referred By Temo taylor Referred To Contact Radiology. Diagnoses Diabetes mellitus, type 2 (H) Polyhydramnios affecting Procedures [facility] Cristiane Rubin MD [address] [place] [address] Referral ID Status Reason Start Date Expiration Date V isits Requested Visits Authorized [id number] Pending Review 07/24/2023 07/23/2024 1 1 Reason for Visit * Diagnostic Imaging Ultrasound (Routine) - Pending Review Specialty Diagnoses / Procedures Referred By Temo taylor Referred To Contact Radiology. Diagnoses Diabetes mellitus, type 2 (H) Polyhydramnios affecting Procedures [facility] Cristiane Rubin MD [address] [place] [address] Referral ID Status Reason Start Date Expiration Date V isits Requested Visits Authorized [id number] Pending Review 07/24/2023 07/23/2024 1 1 Encounter Details Date Type Department Care Team (Latest Contact Info) Description 07/30/2023 3:25 PM CDT - 07/30/2023 11:59 PM CDT Hospital Encounter [facility] Maternal Medicine Center [address] [phone] Bassem Pathak MD [address] [place], [place] [phone] Polyhydramnios affecting Discharge Disposition: Home or Self [...] Info) Description 08/28/2023 8:00 AM CDT Appointment [facility] Heart Care [address] [place] [phone] Cristiane Patel MD [address] [place], [place] [address] 09/02/2023 11:45 AM CDT Appointment [facility] Maternal Medicine Center [place] [address] [facility] [address] [place] [phone] Luz Elena Betts MD [address] [place], [place] [address] 09/02/2023 12:15 PM CDT Office Visit [facility] Medicine [place] [address] [facility] [address] [place] [phone] Luz Elena Betts MD [address] [place], [place] [address] 09/08/2023 11:45 AM CDT Appointment [facility] Medicine [place] [address] [facility] [address] [place] [phone] Bassem Pathak MD [address] [place], [place] [phone] Mitch Jernigan MD [address] [place], [place] [address] 09/08/2023 12:15 PM CDT Office Visit [facility] Medicine [place] [address] [facility] [address] [place] [phone] Bassem Pathak MD [address] [place], [place] [address] Mitch Jernigan MD [address] [place], [place] [phone] documented as of this encounter Procedures Procedure Name Priority Date/Time Associated Diagnosis Comments [facility] BPP SINGLE Routine 07/30/2023 3:46 PM CDT Polyhydramnios affecting documented in this encounter Results * [facility] BPP Single (07/30/2023 3:46 PM CDT) [...] PM CDT ?BPP ----- Pat. Name: CORNELIA WILDERABEL ? Study Date: ??07/30/2023 3:27pm Pat. NO: ??[id number] ?Referring ??MD: HOMAR MEDRANO Site: ??[place] ? Materials Associate: Lashonda Barlow RDMS : ??1985 ?Age: ?? [...] with MFM and once with PCP in [place]. Recommend delivery for GDM A2 and pregestational: ? Well controlled: [id number] ? Poorly controlled: 53c1k-69r9l ? Failed in-hospital attempt at control: 65q2s-00m2o Thank you for the opportunity to participate in the care of this patient. If you have questions regarding today's evaluation or if we can be of further service, please contact the Maternal- Medicine Center. anomalies may be present but not detected Procedure Note Bassem Pathak MD - 07/30/2023 BPP ----- Pat. Name: SHEBA WILDER Study Date: 07/30/2023 3:27pm Pat. NO: [id number] Referring MD: HOMAR MEDRANO Site: [facility] Materials Associate: Lashonda Barlow RDMS : 1985 Age: 37 [...] with twice weekly BPP, once here with MF and once with[place]P in [place]. Recommend delivery for GDM A2 and pregestational: ? Well controlled: [id number]-19y3k ? Poorly controlled: 11o0x-04v5b ? Failed in-hospital attempt at control: 19q2v-29q7g Thank you for the opportunity to participate [...] The amniotic fluid volume appears normal. Cristiane Patel MD IMG MFM ORDERABLE S documented in this encounter Visit Diagnoses Diagnosis Polyhydramnios affecting documented in this encounter Care Teams Parking Garage Manager Relationship Specialty Start Date End Date Tre Ba MD [address] [address] PCP - General fixture repairer fabricator 01/15/22 documented as of this encounter
--- OUTSIDE RECORDS SUMMARY | 2023-08-26 15:40 | XMS_ITS | Encounter Summary ---
Author Organization [place] Address [address] [facility] [place] [address] Care Team Providers Care Statistical Geneticist Name Role Phone Tre Ba MD Primary Care Provide r Reason for Visit * Reason Onset Date Comments Care 07/29/2023 Encounter Details Date Type Department Care Team (Late st Contact Info) Description 07/29/2023 Telephone [facility] Maternal Medicine Center [place] [address] [facility] [address] [place] [address] Carrie Smith, RN Care (/) Social History Tobacco Use Types Packs/Day Years [...] encounter Miscellaneous Notes * Telephone Encounter - Carrie Smith RN - 07/29/2023 12:07 PM CDT [facility] called to discuss coordinating care between [facility] clinic and [facility]. Plan for [facility] to do once weekly NSTs in the beginning of the week starting at 32 weeks and [facility] will do BPPs toward the end of the week starting at 32 weeks. [facility]. Pt will need to schedule more weekly BPPs after 08/21/23. Carrie Smith, RN on 07/29/2023 at 12:11 PM documented in this encounter Plan of Treatment Upcoming Encounters Date Type Department Care Team (Late st Contact Info) Description 08/28/2023 8:00 AM CDT Appointment [facility] Heart Care [address] [place] [address] Cristiane Patel MD [address] [place] [address] 09/02/2023 11:45 AM CDT Appointment [facility] Maternal Medicine [facility] [address] [place] [phone] Luz Elena Betts MD [address] [place] [id number] 09/02/2023 12:15 PM CDT Office Visit [facility] Maternal Medicine [facility] [address] [facility] [address] [place] [phone] Luz Elena Betts MD [address] [place] [address] 09/08/2023 11:45 AM CDT Appointment [facility] Maternal Medicine [facility] [address] [place] [phone] Bassem Pathak MD [address] [place], [place] [address] Mitch Jernigan MD [address] [place] [address] 09/08/2023 12:15 PM CDT Office Visit [facility] Maternal Medicine [facility] [address] [facility] [address] [place] [phone] Bassem Pathak MD [address] [place] [address] Mitch Jernigan MD [address] [place] [address] documented as of this encounter Visit Diagnoses Not on filedocumented in this encounter Care Teams Statistical Geneticist Relationship Specialty Start Date End Date Tre Ba MD [facility] [address] [facility] [address] [place] [address] PCP - General workers compensation specialist 01/15/22 documented as of this encounter
--- OUTSIDE RECORDS SUMMARY | 2023-08-26 15:40 | XMS_ITS | Encounter Summary ---
Author Organization [place] Address [facility] [place] [address] Care Team Providers Care Email Deployment Specialist Name Role Phone Tre Ba MD Primary Care Provide r Bassem Pathak MD Unavailable [phone] Reason for Referral * Diagnostic Imaging Ultrasound (Routine) - Pending Review Specialty Diagnoses / Procedures Referred By Temo taylor Referred To Contact Radiology. Diagnoses Diabetes mellitus, type 2 (H) Polyhydramnios affecting Procedures [facility] US Comprehensive Single F/U Cristiane Patel MD [address] [place] [address] Referral ID Status Reason Start Date Expiration Date V isits Requested Visits Authorized [id number] Pending Review 07/24/2023 07/23/2024 1 1 Reason for Visit * Diagnostic Imaging Ultrasound (Routine) - Pending Review Specialty Diagnoses / Procedures Referred By Temo taylor Referred To Contact Radiology. Diagnoses Diabetes mellitus, type 2 (H) Polyhydramnios affecting Procedures [facility] US Comprehensive Single F/U Cristiane Patel MD [address] [place] [address] Referral ID Status Reason Start Date Expiration Date V isits Requested Visits Authorized [id number] Pending Review 07/24/2023 07/23/2024 1 1 Encounter Details Date Type Department Care Team (Latest Contact Info) Description 08/21/2023 11:45 AM CDT - 08/21/2023 11:59 PM CDT Hospital Encounter [facility] Maternal Medicine Center [place] [address] [place] [phone] Cristiane Patel MD [address] [place] [address] Mitch Jernigan MD [address] [place] [address] Polyhydramnios affecting Discharge Disposition: Home or Self [...] 08/28/2023 8:00 AM CDT [facility]ointment [facility] [address] [facility] [phone] Cristiane Patel MD [address] [place], [place] [address] 09/02/2023 11:45 AM CDT Appointment [facility] Maternal Medicine [facility] [address] [place] [address] Luz Elena Betts MD [address] [place], [place] [address] 09/02/2023 12:15 PM CDT Office Visit [facility] Maternal Medicine [place] [address] [facility] [address] [place] [phone] Luz Elena Betts MD [address] [place] [address] 09/08/2023 11:45 AM CDT Appointment [facility] Medicine [place] [address] [address] [facility] [address] [place] [phone] Bassem Pathak MD [address] [place] [address] Mitch Jernigan MD [address] [place], [place] [address] 09/08/2023 12:15 PM CDT Office Visit [facility] Medicine [place] [address] [address] [facility] [address] [place] [phone] Bassem Pathak MD [address] [place], [place] [address] Mitch Jernigan MD [address] [place], [place] [address] documented as of this encounter Procedures Procedure Name Priority Date/Time Associated Diagnosis Comments [facility] US COMPREHENSIVE SINGLE F/U Routine 08/21/2023 12:39 PM CDT Polyhydramnios affecting documented in this encounter Results * [facility] US Comprehensive Single F/U (08/21/2023 12:39 [...] CDT ?Comp Follow Up ----- Pat. Name: SHEBA WILDER ? Study Date: ??08/21/2023 11:58am Pat. NO: ??[id number] ?Referring ??MD: HOMAR MEDRANO Site: ? Program Instructor: Yamila Dutton RDMS : ??1985 ?Age: ?? [...] lb 4 ?oz EFW by ? Hadlock ([id number]) Head / Face / Neck Biometry: Well Service Pump Equipment Operator ?4.4 ? mm ANATOMY ----- The following [...] Heart / Thorax ?RVOT view. LVOT view. 3-vqyrjp-emblnui view. Spine ?Cervical spine. sex: male. MATERNAL STRUCTURES ----- Cervix ?Suboptimal Right Ovary ?Not examined Left Ovary ?Not examined RECOMMENDATION ----- We discussed the findings on today's ultrasound with the patient. The patient has the following ultrasounds already scheduled: 1) BPP once weekly at your clinic. 2) BPP once weekly at [facility]. 3) echo on 08/28/23 with Pediatric Cardiology. 4) growth assessment at [facility] in 4 weeks. Given the polyhydramnios [...] 08/21/2023 Comp Follow Up ----- Pat. Name: SHEBA WILDER Study Date: 08/21/2023 11:58am Pat. NO: [id number] Referring MD: HOMAR MEDRANO Site: Program Instructor: Yamila Dutton RDMS : 1985 Age: 37 [...] EFW (lb,oz) 6 lb 4oz EFW by Hadlock([id number]) Head / Face / Neck Biometry: Well Service Pump Equipment Operator 4.4mm ANATOMY ----- The following structures appear normal: Head / Neck Cranium. Head size. Head shape.Lateral ventricles. Midline falx. Cavum septi pellucidi. Cerebellum.Cisterna magna. Thalami. Face Profile. Heart / Thorax 4-chamber view. Diaphragm. Abdomen Stomach. Kidneys. Bladder. Spine Thoracic spine. Lumbar spine.Sacral spine. The following structures were documented previously: Face Lips. Nose. Heart / Thorax RVOT view. LVOT view. 1-wkoupx-wniprtvbiyy. Spine Cervical spine. sex: male. MATERNAL STRUCTURES ----- Cervix Suboptimal Right Ovary Not examined Left Ovary Not examined RECOMMENDATION ----- We discussed the findings on today's ultrasound with the patient. The patient has the following ultrasounds already scheduled: 1) BPP once weekly at your clinic. 2) BPP once weekly at [facility]. 3) echo on 08/28/23 with Pediatric Cardiology. 4) growth assessment at [facility] in 4 weeks. Given the polyhydramnios [...] 5. BPP is reassuring. Cristiane Patel MD [facility] S documented in this encounter Visit Diagnoses Diagnosis Polyhydramnios affecting documented in this encounter Care Teams Email Deployment Specialist Relationship Specialty Start Date End Date Tre Ba MD [facility] [address] [place] [address] PCP - General financial institution treasurer 01/15/22 Bassem Pathak MD [address] [facility] [address] [place] [address] Assigned OBGYN Provider 08/16/23 documented as of this encounter
--- OUTSIDE RECORDS SUMMARY | 2023-08-26 15:40 | XMS_ITS | Encounter Summary ---
Author Organization [facility] Address [address] [place] [address]. [place] [address] Care Team Providers Care Casual Shoe Inspector Name Role Phone Tre Ba MD Primary Care Provide r Reason for Visit * Reason Comments Ultrasound L2-AMA Encounter Details Date Type Department Care Team ([facility] Contact Info) Description 07/08/2023 PRE VISIT [facility] Medicine [facility] [address] [place] [address] Melissa Aguiar RN Ultrasound (L2-AMA) Social History Tobacco Use Types Packs/Day Years [...] Upcoming Encounters Date Type Department Care Team ([facility] Contact Info) Description 08/28/2023 8:00 AM CDT Appointment [facility] Heart Care [address] [place] [phone] Cristiane Patel MD [address] [facility] [address] [place], [place] [address] 09/02/2023 11:45 AM CDT Appointment [facility] Maternal Medicine [facility] [address] [place] [address] Luz Elena Betts MD [address] [place], [place] [address] 09/02/2023 12:15 PM CDT Office Visit [facility] Maternal Medicine [place] [address] [facility] [address] [place] [phone] Luz Elena Betts MD [address] [address] 09/08/2023 11:45 AM CDT Appointment [facility] Medicine [place] [address] [facility] [address] [place] [phone] Bassem Pathak MD [address] [phone] Mitch Jernigan MD [address] [address] 09/08/2023 12:15 PM CDT Office Visit [facility] Medicine [place] [address] [facility] [address] [place] [phone] Bassem Pathak MD [address] [place], [place] [address] Mitch Jernigan MD [address] [facility] [address] [place], [place] [phone] documented as of this encounter Visit Diagnoses Not on filedocumented in this encounter Care Teams Casual Shoe Inspector Relationship Specialty Start Date End Date Tre Ba MD [facility] TERRY PONCE [address] [phone] PCP - General reeling machine setup operator 01/15/22 documented as of this encounter
--- OUTSIDE RECORDS SUMMARY | 2023-08-26 15:40 | XMS_ITS | Encounter Summary ---
Author Organization [facility] Address [address] [facility] [place] [address] Care Team Providers Care Business Center Attendant Name Role Phone Tre Ba MD Primary Care Provide r Reason for Visit * Reason Comments Ultrasound BPP-uncontrolled Typ e 2 DM Encounter Details Date Type Department Care Team (Late st Contact Info) Description 08/14/2023 4:00 PM CDT Office Visit [facility] Maternal [facility] [place] [address] [facility] [address] [place] [address] Cristiane Patel MD [address] [place] [address] Mitch Jernigan MD [address] [place] [address] Pre-existing type 2 diabetes mellitus [...] Progress Notes * Mitch Jernigan MD - 08/14/2023 4:00 PM CDT Please see Imaging tab under Chart Review for details of today's US at the [facility]. Mitch Jernigan MD Maternal- Medicine documented in this encounter Nursing Notes * Melissa Aguiar, RN - 08/14/2023 4:00 PM CDT Patient reports good movement, denies contractions, leaking of fluid, or bleeding. BPP 09/30. Sheba's blood sugar values fasting 154 today and post prandial blood sugar around 250 today. Sheba states she has had blood sugars as high as 273. Patient reports she is out of her long acting insulin and she has been unable to get the insulin at her pharmacy. Sheba has been taking her meal timeinsulin. Discussed the importance of taking her insulin regularly. This RN left message for educator at [facility] in [place] where patient states she gets her care. Also called to primary OB clinic([facility]) at 1555 and spokewith JD Mtz. Discussed patient situation above and inquired about primary clinic helping patient with plan for insulin as this RN was unable to speak directly with someone at Endocrine. Bibi requested this RN to try again to Endocrine clinic and she also would attempt when she completed her current tasks. With patient present in room with this RN call was placed again to [facility] in [place]. Spoke with nurse informatics educator Angelica. Patient confirmed with Angelica that she has her meal time insulin at home but is in need of her long acting insulin and has not been taking for one week as she was unable to get it at the pharmacy the day it was prescribed and was then out of town.Angelica sent in new prescription to [facility] in [place] per patient request. Plan made with patient to get insulin tonight and if unable to obtain at the pharmacy she will call the Endocrinology clinic to reach the hadoop consultant provider to assist her in getting her insulin. Patient agreeable to plan and verbalizes understanding of the importance of managing her blood glucose levels. Angelica requested patient call in on Thursday to report glucose levels with a nurse informatics educator. All patient questions answered. SBAR was done with Dr. Jernigan. documented in this encounter Plan of Treatment Upcoming Encounters Date Type Department Care Team (Late st Contact Info) Description 08/28/2023 8:00 AM CDT Appointment [facility] Heart Care [address] [place] [address] Cristiane Patel MD [address] [place] [address] 09/02/2023 11:[address] [facility] Maternal Medicine [facility] [address] [place] [phone] Luz Elena Betts MD [address] [place] [phone] 09/02/2023 12:15 PM CDT Office Visit [facility] Maternal Medicine [facility] [address] [place] [phone] Luz Elena Betts MD [address] [place] [phone] 09/08/2023 11:[address] [facility] Maternal Medicine [facility] [address] [place] [phone] Bassem Pathak MD [address] [place], [place] [address] Mitch Jernigan MD [address] [place] [phone] 09/08/2023 12:15 PM CDT Office Visit [facility] Maternal Medicine [facility] [address] [place] [phone] Bassem Pathak MD [address] [place], [place] [phone] Mitch Jernigan MD [address] [place] [address] documented as of this encounter Visit Diagnoses Diagnosis Pre-existing type 2 diabetes mellitus during in third trimester- Primary Polyhydramnios affecting documented in this encounter Care Teams Business Center Attendant Relationship Specialty Start Date End Date Tre [facility] [address] [facility] [address] [place] [address] PCP - General plow and boring machine tender 01/15/22 documented as of this encounter
--- OUTSIDE RECORDS SUMMARY | 2023-08-26 15:41 | XMS_ITS | Data Portability ---
Author Organization RENO Funez FORESTRY AID TECHNICIAN, [id number] Address [address] [facility] [address] [place] [address] Assessment Encounter Date Assessment Date Assessment LastModified by Organization Details LastModified Time 07/09/2022 07/09/2022 I spent a total of 15 minutes providing care for this patient including: preparing to see the patient, obtaining a medical history, completing a medically appropriate physical exam, completing documentation of visit information and plans in the EMR, counseling the patient and/or caregiver regarding her diagnosis, treatment options and follow up plans, as well as any necessary communication of subsequent test results to the patient. Not available 07/09/2022 16:13:37 03/03/2023 03/03/2023 I spent a total of 35 minutes providing care for this patient including: preparing to see the patient, obtaining a medical history, completing a medically appropriate physical exam, completing documentation of visit information and plans in the EMR, counseling the patient and/or caregiver regarding her diagnosis, treatment options and follow up plans, as well as any necessary communication of subsequent test results to the patient. Not available 03/03/2023 15:23:24 Plan of Treatment Reminders Order Date Submit Date Provider Last Modified By Organization Details Last Modified Time Details Appointments None recorded. Lab beta-HCG, quantitativ e, serum or plasma 2022 023 [facility], [address] [place] [address], [id number], [place], [address], 09:46:18 culture, urine [address], [address], [place], [address], 4 07:02:01 Referral None recorded. Procedures None recorded. Surgeries None recorded. Imaging US, obstetric, transvagina l 2022 023 [email or web address] [id number] [facility], [address] [place] [address], [address], [place], [address], 3 13:56:56 US, obstetric, transvagina l 2022 023 [email or web address] [id number] [facility], [address] [place] [address], [address], [place], [address], 3 11:33:13 US, obstetric, transvagina l 2022 023 [email or web address] [id number] [facility], [address] [place] [address], [address], [place], [address], 3 15:37:35 US, obstetric, transvagina l 2023 024 [email or web address] [id number] [facility], [address] [place] [address], [address] [place] [address], [address], 4 14:40:10 Medication Orders None recorded. Patient TargetsNo targets recorded. Patient Instructions Encounter Date Encounter Id Patient Instructions Last Modified By Organization Details Last Modified Time 07/09/2022 [id number] venous blood draw* Not available 07/09/2022 16:10:57 03/03/2023 [id number] - New OB packet reviewed. Handouts provided. - She is considering transferring care to [place] as she lives an hour away from our clinic. - Follow up with Dr. Ba in 4 weeks if she has not transferred care. Discussed completing early GTT. - Will contact with results. Not available 03/03/2023 15:26:38 Reason for Referral None Reported. Results Created Date Observation Date Name Description Value Unit Range Abnormal Flag LastModifiedBy Organization Detail LastModifiedTime 07/10/19 23 07/09/2022 HCG PREGN BARNEY QUANT ITATI VE SERUM /PLAS MA HCG quantitative 92 mIU/m L <5 high Not Available [facility] [address] [facility] [address], [place], [address], 07/10/2022 09:46:17 03/03/19 24 03/03/2023 URINE CULTU RE urine culture SEE RESULT S BELOW Not Available [facility] [address] [facility] [address], [place], [address], 03/05/2023 07:02:01 06/25/19 23 06/24/2022 US, obste tric, trans vagin al No observ ation record ed. [email or web address] [address], [place], [address], 06/24/2022 14:04:18 07/10/19 23 07/09/2022 US, obste tric, trans vagin al No observ ation record ed. [email or web address] [address], [place], [address], 07/09/2022 15:43:58 03/03/19 24 03/03/2023 US, obste tric, trans vagin al No observ ation record ed. [email or web address] [address], [place], [address], 03/03/2023 14:42:22 Result Notes None recorded. Problems No Known Problems Procedures Surgical History Date Name Laterality Status Provider Name and Address Organization Details Recorded Time reversal of female sterilization completed Ivis Gutierrez null, [place] - [facility] [employer] TECHNICIAN 10/14/2021 12:58:07 Tubal Ligation completed Ivis Gutierrez null, [place] - [facility] [employer] TECHNICIAN 10/14/2021 12:58:13 TUBOTUBAL ANASTOMOSIS (SURG) completed Ivette Mitchell(TERM) null, [place] - [facility] TECHNICIAN 11/11/2021 11:48:16 Imaging Results Imaging Date Name Status LastModified by Organization Details LastModified Time 06/24/2022 US, obstetric, transvaginal completed [email or web address] [address], [place], [address], 06/24/2022 14:04:18 07/09/2022 US, obstetric, transvaginal completed [address], [place], [address], 07/09/2022 15:43:58 03/03/2023 US, obstetric, transvaginal completed [email or web address] [address], [place], [address], 03/03/2023 14:42:22 Procedure Notes None recorded. Medical Equipment None Reported. Allergies No known drug allergies Medications Name Sig Start Date Stop Date Status Note LastModified by Organization Details LastModified Time phenazopyri dine 100 mg tablet TAKE 1 TABLET BY MOUTH THREE TIMES DAILY AFTER MEALS FOR 3 DAYS 08/05 completed Not Available Not Available Not Available cephalexin 500 mg capsule TAKE 1 CAPSULE BY MOUTH THREE TIMES DAILY FOR 5 DAYS 08/05 completed Not Available Not Available Not Available oxycodone 5 mg tablet Take 1 tablet every 8 hours by oral route as needed. 06/24 completed Not Available Not Available Not Available BinaxNOW COVID-19 Ag Self Test kit TEST DIRECTED TODAY 06/24 completed Not Available Not Available Not Available Vitals Date Recorded Body height Body mass index (BMI) Body weight Systolic blood pressure Diastolic blood pressure Provider Name and Address Organization Details Last Updated DateTime 06/24/2022 154.94 cm 32.3 kg/m2 29651.01 g 124 mm[Hg] 68 mm[Hg] Tammei Funez FORESTRY AID TECHNICIAN 12:10:56 Date Recorded Body height Body mass index (BMI) Body weight Systolic blood pressure Diastolic blood pressure Provider Name and Address Organization Details Last Updated DateTime 07/09/2022 154.94 cm 32.9 kg/m2 25525.07 g 114 mm[Hg] 66 mm[Hg] Dick Lacy [place] - [facility]ESTRY A[employer] TECHNICIAN 3 15:44:05 Date Recorded Body height Body mass index (BMI) Body weight Systolic blood pressure Diastolic blood pressure Provider Name and Address Organization Details Last Updated DateTime 03/03/2023 154.94 cm 33.2 kg/m2 59056.82 g 126 mm[Hg] 70 mm[Hg] Katina Branham [facility] FORESTRY AID TECHNICIAN 4 14:31:00 Social History Question Answer Notes LastModified by Organizat ion Details LastModified Time Tobacco Smoking Status Never Smoker Ivis RENO Barber - [facility] FORESTRY AID TECHNICIAN 06/07/2020 17:13:51 Do You Have An Advance Directive? No Information not available 06/07/2020 What Is Your Level Of Alcohol Consumption? None Information not available 06/07/2020 What Is Your Level Of Caffeine Consumption? Occasional Information not available 06/07/2020 How Much Tobacco Do You Chew? None Information not available 06/07/2020 History Of Domestic Violence No Information not available 06/07/2020 Marital Status Single Informatio n not available 06/07/2020 Sex: Unknown Functional Status None recorded. Mental Status None recorded. Family History Relationship Description Onset Age of this Age Resolved Age Notes Unspecified Relation Malignant tumor of cervix Maternal Grandfather Malignant tumor of colon Medical History Condition Response Weight Management/Obesity Y Gynecological History Statement/Question Response History of Abnormal PAP Y Total lifetime partners Less than 5 Date of LMP 01/03/2023 Y Sexual Orientation Heterosexual Unknown 34 Obstetrics History GPAL:G 9 P 5 0 4 5 Type Value Full Term 5 Spontaneous 4 Living 5 Total 9 Immunizations Vaccine Type Date Status Provider Name and Address Organization Details Recorded Time Influenza, split virus, trivalent, preservative 12/08/2012 completed RENO Reddy [facility] FORESTRY AID TECHNICIAN 10/14/2021 12:57:47 MMR 01/13/2013 completed Ivis faulkner [place] [facility] FORESTRY AID TECHNICIAN 10/14/2021 12:57:47 Tdap 12/08/2012 completed RENO Reddy [facility] FORESTRY AID TECHNICIAN 10/14/2021 12:57:47 Influenza, split virus, trivalent, PF 04/13/2012 completed Ivis R[facility] Barber - FORESTRY AID TECHNICIAN 10/14/2021 12:57:47 Past Encounters Encounter ID Performer Location Encounter Start Date Encounter Closed Date Diagnosis/Indication Diagnosis SNOMED-CT Code [id number] Tre Ba MD [id number] [address]!,[address] [place] [phone] 06/07/2020 16:46:29 06/07/2020 17:50:47 Reversal of sterilization [id number] MD RADHA Hanna_CAITY [address],[facility] [address] [place] [phone] 08/05/2021 19:21:07 08/08/2021 12:06:56 Reversal of sterilization [id number] Tre Ba MD [id number] [address] [employer] [facility] [employer],[address] [place] [phone] 10/14/2021 12:38:21 10/14/2021 13:38:29 Postoperative visit [id number] Tre Ba MD [id number] [facility] [employer],[facility] [address] [place] [phone] 01/09/2022 11:28:39 01/09/2022 11:47:14 Finding of viability of [id number] EMMA LAGUNAS_CAITY [address] [employer],[address] [place] [phone] 01/09/2022 11:29:08 01/09/2022 18:09:47 Finding of viability of [id number] Uncertain viability of [id number] EMMA LAGUNAS_METArt [address] [employer],[address] [place] [phone] 01/13/2022 12:07:11 01/14/2022 09:21:49 [id number] DO FRANCES Oropeza003_METR [address] [place] [phone] 06/24/2022 11:40:01 06/24/2022 12:04:55 Finding of viability of [id number] JAKAI STRAUSSEMMA Elaine [id number] [address]!,[address] [address] 06/24/2022 11:43:10 06/24/2022 13:48:42 Gestation period, 7 weeks 70024857 Multigravi da of advanced maternal age 251592093 Past pregn barney history of miscarriage 084542731 [id number] JERMAINE QUIÑONEZ [id number] [address]!,[address] [phone] 07/09/2022 15:05:38 07/10/2022 11:33:13 Missed miscarriage 75136001 [id number] Adri Niño DO [id number] [address] [employer],[address] [place] [id number] 07/09/2022 14:59:44 07/09/2022 15:27:48 Threatened miscarriage in first trimester [id number] EMMA LAGUNAS [id number] [address]!,[address] [place] [id number] 03/03/2023 14:15:13 03/03/2023 15:28:10 test positive 906719871 Gestation period, 8 weeks 26005943 Past pregn barney history of gestational diabetes mellitus 712335161 Past pregn barney history of delivery of macrosomal [id number] Multigravi da of advanced maternal age 847809118 Reversal o f sterilization 838902250 [id number] Salvador Costa MD [id number] [address]!,[address] [place] [id number] 03/03/2023 13:46:50 03/03/2023 14:13:48 Finding of viability of [id number] Health Concerns Section Related Observation LastModified by Organization Detai ls LastModified Time None Recorded Concern Status LastModified by Organization Details LastModified Time None Recorded Advance Directives Directive N: Payers Encounter Date Sequence Insurance Name Policy Number Policy [place] Covered Member ID [place] Member ID Guarantor Name 06/24/2022 1 [employer] - DOS PRIOR TO 2022 (MEDICAID REPLACEMENT - HMO) [id number] 1 Sheba Meño [id number] Sheba Meño 07/09/2022 1 [employer] - DOS PRIOR TO 2022 (MEDICAID REPLACEMENT - HMO) [id number] 1 Sheba Meño [id number] Sheba Meño 07/09/2022 1 [employer] - DOS PRIOR TO 2022 (MEDICAID REPLACEMENT - HMO) [id number] 1 Sheba Meño [id number] Sheba Meño 03/03/2023 SLIDING FEE SCHEDULE - DISCOUNT Sheba Meño 03/03/2023 SLIDING FEE SCHEDULE - DISCOUNT Sheba Meño Notes Date Note Type Note Provider Name and Address Organization Details Recorded Time 06/24/2022 text/html HPI Notes: Kristal pickett is here today for a confirmation. She was originally scheduled for an OB intake but is measuring a week behind her LMP dating. We discussed having her return for an intake at 10 weeks with genetic testing vs completing the OB intake today and having her return at 10 weeks for a lab visit and she prefers to return for the intake and labs in 3 weeks. Ultrasound today shows a viable 7 week 1 day IUP with FHT of 154. Based on LMP she is 8 weeks 1 day. JAK KAUFMAN, EMMA [id number] [facility],[address], [place], [address], [facility] - [facility] FORESTRY AID TECHNICIAN 06/24/2022 13:48:00 07/09/2022 text/html HPI Notes: The patient presents today as follow up from [facility]. She is a . She had a confirmation visit on 06/24/22, 7 weeks . She was seen in the ER on 07/05, and 07/06 for no heartbeat and heavy bleeding. She has a negative blood type and was administered Rhogam in the ER on 07/06/22. HCGs were also done and trending down. Hcg 07/05/22 - 2,262 - Patient reports she is still having bleeding, but not as heavy as the past two days. Passing small clots and having cramping. SILVINO TOSCANO, [facility] [id number] [facility],[address], [place], [address], [place] - [facility] FORESTRY AID TECHNICIAN 07/09/2022 16:17:52 03/03/2023 text/html HPI Notes: This is a G 8 , P 5 , whose LMP was on 01/03/2023 . She is present today for an initial exam. A test was positive on 02/02/2023. The patient will be 35 or older when the baby is due. Based on LMP, her EGA is 8 weeks, 3 days. BROOKE is 10/10/2023. BROOKE by LMP is consistent with ultrasound. Ultrasound was done here today. Is there any history of STD's: no. Pap smear history: August 2022. History of abnormal: no. Her past medical history is notable for obesity. Her past obstetric history is significant for macrosomia (1st baby 10 lb 14 oz) and likely gestational diabetes. She did not pass the 1 HR GTT and could not complete the 3 HR GTT due to vomiting in her 2013 . This is found in the few medical records in her chart. She denied any complications/issu es in her previous pregnancies today. Since her LMP, she denies the use of alcohol, tobacco, and street drugs. Since her LMP she claims she has been without significant complaints. She denies significant nausea, vomiting, and vaginal bleeding. Patient partner's name is Scot and he is involved. The patient would like to deliver at [facility]. Genetic testing was discussed today and the patient is undecided if she wants testing done. Doctor: [facility]: J LUIS/Scot BROOKE of 10/12/2023 by LMP confirmed with US at 8 weeks BMI: 33.2. Early GTT:___ Genetic testing: History of probable GDM in previous (Failed 1HR and could not complete 3 HR so was treated as GDM). History of macrosomia. 1st baby 10 lb 14 oz. Vaccines: flu: Reports she is up to date. COVID19 [ ] Tdap [ ] FAS: Rhogam [ ]//Rubella [ ] 1hr: [ ] Pump given: [ ]//contraception PPD: [ ] problems/Antepartu m testing: EMMA LAGUNAS [id number] [facility],[address], [place], [address], [place] - [facility] FORESTRY AID TECHNICIAN 03/03/2023 15:27:22 OBGyn Episode No OBEpisode recorded.
== END 2023-08-24 08:47 | disposition home or self-care (01) ==
LOC: NFLDREF 08-26 15:37
PROVIDERS: Visit Provider Obstetrics & Gynecology
DX: Z34.83 Encounter for supervision of other normal pregnancy, third trimester (principal)
CPT/HCPCS: 82728

== ENCOUNTER 2023-08-31 08:40 | Outpatient (CLI) | payer MEDICAID, SELFPAY ==
--- OUTSIDE RECORDS SUMMARY | 2023-08-31 15:23 | XMS_ITS | Encounter Summary ---
Author Organization [place] Address [facility] [place] [address] Care Team Providers Care Financial Writer Name Role Phone Tre Ba MD Primary Care Provide r Reason for Referral * Diagnostic Imaging Ultrasound (Routine) - Pending Review Specialty Diagnoses / Procedures Referred By Contac t Referred To Contact Radiology. Diagnoses Pre-existing type 2 diabetes mellitus during in third trimester Procedures [facility] Bassem Dhillon MD [address] [facility] [address] [address] Referral ID Status Reason Start Date Expiration Date V isits Requested Visits Authorized [id number] Pending Review 07/30/2023 07/29/2024 1 1 * Diagnostic Imaging Ultrasound (Routine) - Pending Review Specialty Diagnoses / Procedures Referred By Contac t Referred To Contact Radiology. Diagnoses Pre-existing type 2 diabetes mellitus during in third trimester Procedures Bassem Ackerman MD [address] [address] Referral ID Status Reason Start Date Expiration Date V isits Requested Visits Authorized [id number] Pending Review 07/30/2023 07/29/2024 1 1 * Diagnostic Imaging Ultrasound (Routine) - Pending Review Specialty Diagnoses / Procedures Referred By Contac t Referred To Contact Radiology. Diagnoses Pre-existing type 2 diabetes mellitus during in third trimester Procedures [facility] Bassem Dhillon MD [address] [place] [address] Referral ID Status Reason Start Date Expiration Date V isits Requested Visits Authorized [id number] Pending Review 07/30/2023 07/29/2024 1 1 Reason for Visit * Reason Comments Ultrasound BPP: DM2 - poorly co ntrolled Encounter Details Date Type Department Care Team (Late st Contact Info) Description 07/30/2023 4:00 PM CDT Office Visit [facility] Maternal Medicine Center [address] [place] [address] Bassem Pathak MD [address] [place], [place] [id number] Pre-existing type 2 diabetes mellitus during in [...] 07/30/2023 4:00 PM CDT Patient presents to [facility] for BPP at 29w5d due to DM2 - poorly controlled. Positive movement. Denies LOF, vaginal bleeding or cramping/contractions. SBAR given to TREVOR GRESHAM, see their note in Epic. documented in this encounter Plan of Treatment Upcoming Encounters Date Type Department Care Team (Late st Contact Info) Description 09/02/2023 11:45 AM CDT Appointment [facility] Maternal Medicine [place] [address] [facility] [address] [place] [phone] Luz Elena Betts MD [address] [place], [place] [address] 09/02/2023 12:15 PM CDT Office Visit [facility] Maternal Medicine [place] [address] [facility] [address] [place] [phone] Luz Elena Betts MD [address] [place], [place] [address] 09/08/2023 11:45 AM CDT Appointment [facility] Medicine [place] [address] [facility] [address] [place] [phone] Bassem Pathak MD [address] [place], [place] [address] Mitch Jernigan MD [address] [place], [place] [address] 09/08/2023 12:15 PM CDT Office Visit [facility] Maternal Medicine [place] [address] [facility] [address] [place] [phone] Bassem Pathak MD [address] [place], [place] [address] Mitch Jernigan MD [address] [place] [address] Scheduled Orders Name Type Priority Associated Diagnoses Orde r Schedule MFM BPP Single Imaging Routine Pre-existing type 2 diabetes mellitus during in third trimester Expected: 09/04/2023 (Approximate), Expires: 05/29/2024 MFM BPP Single Imaging Routine Pre-existing type 2 diabetes mellitus during in third trimester Expected: 09/11/2023 (Approximate), Expires: 05/29/2024 documented as of this encounter Results * MFM BPP Single [...] ? Study Date: ??08/25/2023 11:48am Pat. NO: ??[id number] ?Referring ??MD: HOMAR MEDRANO Site: ? Real Estate Operations Manager: Micha Gage : ??1985 ?Age: ?? 37 ----- INDICATION [...] surveillance with twice weekly BPP, alternating between [facility] and [facility]. Return to primary provider for continued care. [...] WILDER Study Date: 08/25/2023 11:48am Pat. NO: [id number] Referring MD: HOMAR MEDRANO Site: Real Estate Operations Manager: Micha Gage RDMS : 1985 Age: [...] Continue [facility] with [facility]. Return to primary provider for continued care. [...] Mild polyhydramnios is noted. Bassem Pathak MD IMG [facility] US ORDERABLE S documented in this encounter Visit Diagnoses Diagnosis Pre-existing type 2 diabetes mellitus during in third trimester- Primary Pre-existing type 2 diabetes mellitus during in third trimester documented in this encounter Care Teams Financial Writer Relationship Specialty Start Date End Date Tre Ba MD [facility] [address] [address] PCP - General dredge pumper 01/15/22 documented as of this encounter
--- OUTSIDE RECORDS SUMMARY | 2023-08-31 15:23 | XMS_ITS | Encounter Summary ---
Author Organization [place] Address [address] [facility] [facility] [place] [address] Care Team Providers Care Mangle Operator Garments Name Role Phone Tre Ba MD Primary Care Provide r Bassem Pathak MD Unavailable [phone] Encounter Details Date Type Department Care Team [...] Info) Description 09/02/2023 11:45 AM CDT Appointment [facility] Maternal Medicine Center [place] [address] [place] [address] Luz Elena Betts MD [address] [place] [address] 09/02/2023 12:15 PM CDT Office Visit [facility] M[facility] Medicine [facility] [place] [address] [place] [phone] Luz Elena Betts MD [address] [place], [place] [address] 09/08/2023 11:45 AM CDT Appointment [facility] [address] [facility] [address] [place] [phone] Bassem Pathak MD [address] [place], [place] [address] Mitch Jernigan MD [address] [place], [place] [address] 09/08/2023 12:15 PM CDT Office Visit [facility] [address] [facility] [address] [place] [phone] Bassem Pathak MD [address] [place], [place] [address] Mitch Jernigan MD [address] [place], [place] [address] documented as of this encounter Visit Diagnoses Not on filedocumented in this encounter Care Teams Mangle Operator Garments Relationship Specialty Start Date End Date Tre Ba MD [facility] [address] [place], [place] [phone] PCP - General baggageman 01/15/22 Bassem Pathak MD [address] [place], [place] [address] Assigned OBGYN Provider 08/16/23 documented as of this encounter
--- OUTSIDE RECORDS SUMMARY | 2023-08-31 15:23 | XMS_ITS | Encounter Summary ---
Author Organization [place] Address [address] [place] [address] Care Team Providers Care Ship Steward Name Role Phone Tre Ba MD Primary Care Provide r Encounter Details Date Type Department Care Team (Late st Contact Info) Description 07/24/2023 2:40 PM CDT Lab [facility] [address] [place] [address] Cristiane Patel MD [address] [place] [address] Multigravida of advanced maternal age in [...] Info) Description 09/02/2023 11:45 AM CDT Appointment [facility] Maternal Medicine Center [place] [address] [facility] [address] [place] [address] Luz Elena Betts MD [address] [place], [place] [address] 09/02/2023 12:15 PM CDT Office Visit [facility] Medicine [place] [address] [facility] [address] [place] [phone] Luz Elena Betts MD [address] [place], [place] [address] 09/08/2023 11:45 AM CDT Appointment [facility] Medicine [facility] [address] [facility] [address] [place] [phone] Bassem Pathak MD [address] [place] [address] Mitch Jernigan MD [address] [place], [place] [id number] 09/08/2023 12:15 PM CDT Office Visit [facility] Medicine [place] [address] [facility] [address] [place] [phone] Bassem Pathak MD [address] [place], [place] [phone] Mitch Jernigan MD [address] [place] [address] documented as of this encounter Procedures Procedure Name Priority Date/Time Associated Diagnosis Comments MYRIAD NON-INVASIVE SCREENING PREQUEL Routine 07/24/2023 2:49 PM CDT Multigravida of advanced maternal age in third trimester documented in this encounter Results * Myriad Non-Invasive Screening???Prequel (07/24/2023 2:49 PM CDT) See Scanned Result MYRIAD NON-INVASIVE SCREENING PREQUEL-Scann ed 08/02/2023 7:16 PM CDT [facility] Blood STRUCTURE OF RIGHT UPPER LIMB / Unknown Venipuncture / Unknown 07/24/2023 2:49 PM CDT 07/24/2023 2:49 PM CDT Laura Abdi [facility] LAB - BLOOD ORDERABL ES [facility] [address] [place], [place] [address] [phone] documented in this encounter Visit Diagnoses Diagnosis Multigravida of advanced maternal age in third trimester documented in this encounter Care Teams Ship Steward Relationship Specialty Start Date End Date Tre Ba MD [address] [address] PCP - General building rental superintendent 01/15/22 documented as of this encounter
--- OUTSIDE RECORDS SUMMARY | 2023-08-31 15:23 | XMS_ITS | Encounter Summary ---
Author Organization [place] Address [facility] [place] [address] Care Team Providers Care Cork Tipper Name Role Phone Tre Ba MD Primary Care Provide r Bassem Pathak MD Unavailable [phone] Reason for Referral * Diagnostic Imaging Ultrasound (Routine) - Pending Review Specialty Diagnoses / Procedures Referred By Temo taylor Referred To Contact Radiology. Diagnoses Pre-existing type 2 diabetes mellitus during in third trimester [facility] [address] [place] [address] Referral ID Status Reason Start Date Expiration Date V isits Requested Visits Authorized [id number] Pending Review 07/30/2023 07/29/2024 1 1 Reason for Visit * Diagnostic Imaging Ultrasound (Routine) - Pending Review Specialty Diagnoses / Procedures Referred By Temo taylor Referred To Contact Radiology. Diagnoses Pre-existing type 2 diabetes mellitus during in third trimester Procedures [facility] Bassem Dhillon MD [address] [place] [address] Referral ID Status Reason Start Date Expiration Date V isits Requested Visits Authorized [id number] Pending Review 07/30/2023 07/29/2024 1 1 Encounter Details Date Type Department Care Team (Latest Contact Info) Description 08/25/2023 11:45 AM CDT - 08/25/2023 11:59 PM CDT Hospital Encounter [facility] Maternal Medicine [facility] [address] [place] [phone] Bassem Pathak MD [address] [place] [address] Luz Elena Betts MD [address] [place] [address] Pre-existing type 2 diabetes mellitus [...] Info) Description 09/02/2023 11:45 AM CDT Appointment [facility] Maternal Medicine [facility] [address] [place] [phone] Luz Elena Betts MD [address] [place], [place] [address] 09/02/2023 12:15 PM CDT Office Visit [facility] Maternal Medicine [facility] [address] [facility] [address] [place] [phone] Luz Elena Betts MD [address] [place], [place] [address] 09/08/2023 11:45 AM CDT Appointment [facility] Medicine [place] [address] [facility] [address] [place] [phone] Bassem Pathak MD [address] [place], [place] [address] Mitch Jernigan MD [address] [place], [place] [address] 09/08/2023 12:15 PM CDT Office Visit [facility] Medicine [place] [address] [facility] [address] [place] [phone] Bassem Pathak MD [address] [place], [place] [address] Mitch Jernigan MD [address] [place], [place] [address] documented as of this encounter Procedures Procedure Name Priority Date/Time Associated Diagnosis Comments M BPP SINGLE Routine 08/25/2023 12:05 PM CDT Pre-existing type 2 diabetes mellitus during in third trimester documented in this encounter Results * M BPP Single (08/25/2023 12:05 PM CDT) Anatomical Region Laterality Modality Ultrasound 08/25/2023 11:4 8 AM CDT Impressions 08/25/2023 1:03 PM CDT IMPRESSION ----- 1) Gonzalez intrauterine at 33w 3d gestational age. 2) The BPP is reassuring. 3) Mild polyhydramnios is noted. Narrative 08/25/2023 1:03 PM CDT ?BPP ----- Pat. Name: CORNELIA WILDERABEL ? Study Date: ??08/25/2023 11:48am Pat. NO: ??[id number] ?Referring ??MD: HOMAR MEDRANO Site: ? Freight And Passenger Agent: Micha Gage RDMS : ??1985 ?Age: ?? [...] surveillance with twice weekly BPP, alternating between [facility] and [facility]. Return to primary provider for [...] WILDER Study Date: 08/25/2023 11:48am Pat. NO: [id number] Referring MD: HOMAR MEDRANO Site: Freight And Passenger Agent: Micha Gage RDMS : 1985 Age: 37 [...] Continue surveillance with [facility], [facility]. Return to primary provider for [...] Mild polyhydramnios is noted. [facility] documented in this encounter Visit Diagnoses Diagnosis Pre-existing type 2 diabetes mellitus during in third trimester documented in this encounter Care Teams Cork Tipper Relationship Specialty Start Date End Date Tre Ba MD [address] [facility] [address] [place] [address] PCP - General odd jobs day worker 01/15/22 Bassem Pathak MD [address] [place] [address] Assigned OBGYN Provider 08/16/23 documented as of this encounter
--- OUTSIDE RECORDS SUMMARY | 2023-08-31 15:23 | XMS_ITS | Encounter Summary ---
Author Organization [place] Address [address] [place] [address] Care Team Providers Care Hydrogen Treater Name Role Phone Tre Ba MD Primary [...] Info) Description 09/02/2023 11:45 AM CDT Appointment [facility] Maternal Medicine Center [place] [address] [facility] [address] [place] [phone] Luz Elena Betts MD [address] [place], [place] [address] 09/02/2023 12:15 PM CDT Office Visit [facility] Maternal Medicine Center [place] [address] [facility] [address] [place] [phone] Luz Elena Betts MD [address] [place], [place] [address] 09/08/2023 11:45 AM CDT Appointment [facility] Medicine [facility] [address] [facility] [address] [place] [phone] Bassem Pathak MD [address] [place] [address] Mitch Jernigan MD [address] [place] [address] 09/08/2023 12:15 PM CDT Office Visit [facility] [address] [facility] [address] [place] [phone] Bassem Pathak MD [address] [place], [place] [address] Mitch Jernigan MD [address] [place], [place] [address] documented as of this encounter Visit Diagnoses Not on filedocumented in this encounter Care Teams Hydrogen Treater Relationship Specialty Start Date End Date Tre Ba MD [facility] [facility] [address] [place], [place] [phone] PCP - General telecommunications field technician 01/15/22 documented as of this encounter
--- OUTSIDE RECORDS SUMMARY | 2023-08-31 15:23 | XMS_ITS | Encounter Summary ---
Author Organization [place] Address [address] [facility] [place] [address] Care Team Providers Care Engraver Name Role Phone Tre Ba MD Primary Care Provide r Reason for Visit * Reason Comments Ultrasound BPP-uncontrolled Typ e 2 DM Encounter Details Date Type Department Care Team (Late st Contact Info) Description 08/14/2023 4:00 PM CDT Office Visit [facility] Maternal Medicine Center [place] [address] [facility] [address] [place] [address] Cristiane Patel MD [address] [place] [address] Mitch Jernigan MD [address] [place] [address] Pre-existing type 2 diabetes mellitus [...] for details of today's US at the [facility]. Mitch Jernigan MD Maternal- Medicine documented [...] message for educator at [facility] in [place] where patient states she gets her care. Also called to primary OB clinic([facility]) at 1555 and spokewith JD Mtz. Discussed [...] was placed again to [facility] in [place]. Spoke with outreach educator Angelica. Patient confirmed with Angelica that she has her meal time insulin at home but is in need of her long acting insulin and has not been taking for one week as she was unable to get it at the pharmacy the day it was prescribed and was then out of town.Angelica sent in new prescription to [facility] in [place] per patient request. Plan made with patient to get insulin tonight and if unable to obtain at the pharmacy she will call the Endocrinology clinic to reach the distribution specialist provider to assist her in getting her insulin. Patient agreeable to plan and verbalizes understanding of the importance of managing her blood glucose levels. Angelica requested patient call in on Thursday to report glucose levels with a outreach educator. All patient questions answered. SBAR was done with Dr. Jernigan. documented in this encounter Plan of Treatment Upcoming Encounters Date Type Department Care Team (Late st Contact Info) Description 09/02/2023 11:45 AM CDT Appointment [facility] Maternal Medicine [place] [address] [place] [phone] Luz Elena Betts MD [address] [place], [place] [address] 09/02/2023 12:15 PM CDT Office Visit [facility] Medicine [place] [address] [facility] [address] [place] [phone] Luz Elena Betts MD [address] [place] [id number] 09/08/2023 11:45 AM CDT Appointment [facility] Medicine [place] [address] [place] [phone] Bassem Pathak MD [address] [place] [address] Mitch Jernigan MD [address] [place], [place] [address] 09/08/2023 12:15 PM CDT Office Visit [facility] Maternal Medicine [place] [address] [place] [phone] Bassem Pathak MD [address] [place], [place] [address] Mitch Jernigan MD [address] [place], [place] [phone] documented as of this encounter Visit Diagnoses Diagnosis Pre-existing type 2 diabetes mellitus during in third trimester- Primary Polyhydramnios affecting documented in this encounter Care Teams Engraver Relationship Specialty Start Date End Date Tre Ba MD [address] [address] PCP - General dialysis nurse 01/15/22 documented as of this encounter
--- OUTSIDE RECORDS SUMMARY | 2023-08-31 15:23 | XMS_ITS | Referral Summary ---
Author Organization [place] Address [address] [place] [address]. [place] [address] Care Team Providers Care Fire Prevention Engineer Name Role Phone Tre Ba MD Primary Care Provide r Bassem Pathak MD Unavailable [phone] Encounters Date Type Department Care Team Description 08/26/2023 Telephone [facility] [address] [place] [phone] Cheri Peters LPN 08/25/2023 Travel 08/25/2023 12:15 PM CDT Office Visit [facility] Maternal Medicine [facility] [address] [place] [phone] Bassem Pathak MD Yamamura, Yasuko, MD Pre-existing type 2 diabetes mellitus during in third trimester (Primary Dx); Polyhydramnios in third trimester complication, single or unspecified fetus 08/25/2023 11:45 AM CDT - 08/25/2023 11:59 PM CDT Hospital Encounter [facility] Medicine [facility] [address] [place] [phone] Bassem Pathak MD Yamamura, Yasuko, MD Pre-existing type 2 diabetes mellitus during in third trimester Discharge Disposition: Home or Self Care 08/21/2023 Travel 08/21/2023 12:15 PM CDT Office Visit [facility] Maternal Medicine [facility] [address] [place] [phone] Cristiane Patel MD Rauk, Phillip Neil, MD Pre-existing type 2 diabetes mellitus during in third trimester (Primary Dx); Polyhydramnios affecting 08/21/2023 11:45 AM CDT - 08/21/2023 11:59 PM CDT Hospital Encounter [facility] Medicine [facility] [address] [place] [address] Cristiane Patel MD Rauk, Mitch Walker MD Polyhydramnios affecting Discharge Disposition: Home or Self Care 08/14/2023 Travel 08/14/2023 4:00 PM CDT Office Visit [facility] Maternal Medicine [place] [address] [facility] [address] [place] [phone] Cristiane Patel MD Rauk, Mitch Walker MD Pre-existing type 2 diabetes mellitus during in third trimester (Primary Dx); Polyhydramnios affecting 08/14/2023 3:30 PM CDT - 08/14/2023 11:59 PM CDT Hospital Encounter [facility] Maternal Medicine [facility] [address] [facility] [address] [place] [phone] Cristiane Patel MD Rauk, Mitch Walker MD Polyhydramnios affecting Discharge Disposition: Home or Self Care 08/03/2023 Telephone [facility] Maternal Medicine [place] [address] [place] [phone] Laura Abdi, GC Results (Low Risk Expanded NIPT) 07/30/2023 Travel 07/30/2023 4:00 PM CDT Office Visit [facility] Maternal Medicine [address] [place] [phone] Bassem Pathak MD Pre-existing type 2 diabetes mellitus during in third trimester (Primary Dx) 07/30/2023 3:25 PM CDT - 07/30/2023 11:59 PM CDT Hospital Encounter [facility] Medicine [address] [place] [phone] Bassem Pathak MD Polyhydramnios affecting Discharge Disposition: Home or Self Care 07/29/2023 Telephone [facility] Medicine [facility] [address] [facility] [facility] [address] [place] [phone] Carrie Smith, JD Care (/) 07/24/2023 Medical Correspondence [facility] [address] [place] [address] Scan, Non-Provider 07/24/2023 2:40 PM CDT Lab [facility] [address] [place] [phone] Cristiane Patel MD Multigravida of advanced maternal age in third trimester 07/24/2023 Travel 07/24/2023 2:00 PM CDT Office Visit [facility] Medicine [place] [address] [facility] [address] [place] [phone] Cristiane Patel MD with type 2 diabetes mellitus in third trimester (Primary Dx); Polyhydramnios affecting 07/24/2023 12:50 PM CDT - 07/24/2023 11:59 PM CDT Hospital Encounter [facility] Medicine [facility] [address] [facility] [address] [place] [phone] Cristiane Patel MD related condition, antepartum Discharge Disposition: Home or Self Care 07/24/2023 12:45 PM CDT Office Visit [facility] Medicine [facility] [address] [facility] [address] [place] [address] [phone] Cristiane Patel MD Daykin, Emily C, GC Multigravida of advanced maternal age in third trimester (Primary Dx); related condition, antepartum 07/08/2023 PRE VISIT [facility] Maternal Medicine [facility] [address] [facility] [address] [place] [phone] Melissa Aguiar, JD Ultrasound (L2-AMA) 07/03/2023 Medical Correspondence [facility] Info [facility]mt [facility] [address] [facility] [place] [phone] Scan, Non-Provider 07/03/2023 Transcribe Orders [facility] [place] [address] [place] [address] Homar Medrano, PHOTOGRAPHER FINISH BRINE TANK SEPARATOR OPERATOR related condition, antepartum (Primary Dx) from Last [...] Comments Blood Pressure 112/59 01/20/2022 11:00 PM DRY CHAIN PULLER Pulse 80 01/20/2022 11:00 PM DRY CHAIN PULLER Temperature 37.1 ??C (98.7 ??F) 01/20/2022 10:[address] Respiratory Rate 16 01/20/2022 11:00 PM DRY CHAIN PULLER Oxygen Saturation 100% 01/20/2022 11:30 PM DRY CHAIN PULLER Inhaled Oxygen Concentration - - Weight 76.4 kg (168 lb 6.4 oz) 01/20/2022 4:42 P M DRY CHAIN PULLER Height 154.9 cm (5' 1) 01/20/2022 4:42 PM DRY CHAIN PULLER Body Mass Index 31.82 01/20/2022 4:42 PM DRY CHAIN PULLER Plan of Treatment Upcoming Encounters Date Type Department Care Team (Late st Contact Info) Description 09/02/2023 11:45 AM CDT Appointment [facility] Maternal Medicine [place] [address] [place] [phone] Luz Elena Betts MD [address] [place], [place] [address] 09/02/2023 12:15 PM CDT Office Visit [facility] Maternal Medicine [place] [address] [facility] [address] [place] [phone] Luz Elena Betts MD [address] [place], [place] [address] 09/08/2023 11:45 AM CDT Appointment [facility] Medicine [place] [address] [facility] [address] [place] [phone] Bassem Pathak MD [address] [place], [place] [address] Mitch Jernigan MD [address] [place], [place] [address] 09/08/2023 12:15 PM CDT Office Visit [facility] Maternal Medicine [place] [address] [facility] [address] [place] [phone] Bassem Pathak MD [address] [place] [address] Mitch Jernigan MD [address] [facility] [address] [place] [address] Procedures Procedure Name Priority Date/Time Associated Diagnosis Comments [facility] BPP SINGLE Routine 08/25/2023 12:05 PM CDT Pre-existing type 2 diabetes mellitus during in third trimester [facility] US COMPREHENSIVE SINGLE F/U Routine 08/21/2023 12:39 PM CDT Polyhydramnios affecting [facility] BPP SINGLE Routine 08/14/2023 3:54 PM CDT Polyhydramnios affecting [facility] BPP SINGLE Routine 07/30/2023 3:46 PM CDT Polyhydramnios affecting [facility] NON-INVASIVE SCREENING PREQUEL Routine 07/24/2023 2:49 PM CDT Multigravida of advanced maternal age in third trimester [facility] US COMPREHENSIVE SINGLE Routine 07/24/2023 2:13 PM CDT related condition, antepartum from Last 3 Months Results * [facility] BPP Single (08/25/2023 12:05 PM CDT) Only [...] ? Study Date: ??08/25/2023 11:48am Pat. NO: ??[id number] ?Referring ??MD: HOMAR MEDRANO Site: ? Installer Soft Top: Micha Gage RDMS : ??1985 ?Age: ?? [...] surveillance with twice weekly BPP, alternating between [facility] and [facility]. Return to primary provider for [...] EDWARDS Study Date: 08/25/2023 11:48am Pat. NO: [id number] Referring MD: HOMAR MEDRANO Site: Installer Soft Top: Micha Gage RDMS : 1985 Age: 37 [...] Continue surveillance with twice weekly [facility]. Return to primary provider for continued [...] Mild polyhydramnios is noted. Bassem Pathak MD Lydia [facility] US ORDERABLE S * [facility] US Comprehensive Single F/U (08/21/2023 12:39 PM [...] ? Study Date: ??08/21/2023 11:58am Pat. NO: ??[id number] ?Referring ??MD: HOMAR MEDRANO Site: ? Installer Soft Top: Yamila Dutton RDMS : ??1985 ?Age: ?? [...] lb 4 ?oz EFW by ? Hadlock ([id number]) Head / Face / Neck Biometry: Carpet Or Rug Layer Helper ?4.4 ? mm ANATOMY ----- The following [...] Heart / Thorax ?RVOT view. LVOT view. 3-tjpzwc-iqcocuj view. Spine ?Cervical spine. sex: male. MATERNAL STRUCTURES ----- Cervix ?Suboptimal Right Ovary ?Not examined Left Ovary ?Not examined RECOMMENDATION ----- We discussed the findings on today's ultrasound with the patient. The patient has the following ultrasounds already scheduled: 1) BPP once weekly at your clinic. 2) BPP once weekly at [facility]. 3) echo on 08/28/23 with Pediatric Cardiology. 4) growth assessment at [facility] in 4 weeks. Given the polyhydramnios and [...] EDWARDS Study Date: 08/21/2023 11:58am Pat. NO: [id number] Referring MD: HOMAR MEDRANO Site: Installer Soft Top: Yamila Dutton RDMS : 1985 Age: 37 [...] EFW (lb,oz) 6 lb 4oz EFW by Hadlock([id number]) Head / Face / Neck Biometry: Carpet Or Rug Layer Helper 4.4mm ANATOMY ----- The following structures appear normal: Head / Neck Cranium. Head size. Head shape.Lateral ventricles. Midline falx. Cavum septi pellucidi. Cerebellum.Cisterna magna. Thalami. Face Profile. Heart / Thorax 4-chamber view. Diaphragm. Abdomen Stomach. Kidneys. Bladder. Spine Thoracic spine. Lumbar spine.Sacral spine. The following structures were documented previously: Face Lips. Nose. Heart / Thorax RVOT view. LVOT view. 8-ijsefv-zguikchegfq. Spine Cervical spine. sex: male. MATERNAL STRUCTURES ----- Cervix Suboptimal Right Ovary Not examined Left Ovary Not examined RECOMMENDATION ----- We discussed the findings on today's ultrasound with the patient. The patient has the following ultrasounds already scheduled: 1) BPP once weekly at your clinic. 2) BPP once weekly at [facility]. 3) echo on 08/28/23 with Pediatric Cardiology. 4) growth assessment at [facility] in 4 weeks. Given the polyhydramnios and [...] 5. BPP is reassuring. Cristiane Patel MD [facility] US ORDERABLE S * [employer] Non-Invasive Screening???Prequel (07/24/2023 2:49 PM CDT) See Scanned Result Denator NON-INVASIVE SCREENING PREQUEL-Scann ed 08/02/2023 7:16 PM CDT [facility] Blood STRUCTURE OF RIGHT UPPER LIMB / Unknown Venipuncture / Unknown 07/24/2023 2:49 PM CDT 07/24/2023 2:49 PM CDT Laura Abdi LAB - BLOOD ORDERABL ES [facility] [address] [phone] * [facility] US Comprehensive Single (07/24/2023 2:13 PM CDT) [...] ? Study Date: ??07/24/2023 1:32pm Pat. NO: ??[id number] ?Referring ??MD: HOMAR MEDRANO Site: ??[facility] ? Installer Soft Top: Sujatha Joyce RDMS : ??1985 ?Age: ?? [...] 3 lb 10 ?oz EFW by ?Hadlock ([id number]) Head / Face / Neck Biometry: Carpet Or Rug Layer Helper ? 3.6 ? mm CM ?5.7 ? [...] cava. Inferior vena cava. 3-vessel ? view. 8-slfzkp-nuqdkqn view. Cardiac position. Cardiac size. Cardiac rhythm. [...] free DNA drawn. They will contact Ms. Edwards when those results are available. We reviewed [...] are between 220-240. She is following a conservation educator and has met with a supervisor pipelines. No one has started her on insulin [...] medical record, and communicating with other health home health caregiver and/or care coordination. Please see note for details. Procedure Note Cristiane Patel MD - 07/24/2023 Comprehensive ----- Pat. Name: JACK EDWARDS Study Date: 07/24/2023 1:32pm Pat. NO: [id number] Referring MD: HOMAR MEDRANO Site: [facility] Installer Soft Top: Sujatha Joyce RDMS : 1985 Age: 37 ----- INDICATION ----- Advanced Maternal Age. Type 2 diabetes. History of Gestational Hypertension. METHOD ----- Transabdominal ultrasound examination. View: Sufficient ----- Gonzalez . Number of fetuses: 1 DATING ----- DateDetailsGest. age BROOKE LMP 328 w + 6 d 10/10/2023 Prior assessment [...] 3 lb 10 oz EFW by Hadlock ([id number]) Head / Face / Neck Biometry: Carpet Or Rug Layer Helper 3.6 mm CM 5.7 mm Nasal bone [...] Superior venacava. Inferior vena cava. 3-vessel view. 8-sonqgs-totcgzx view.Cardiac position. Cardiac size. Cardiac rhythm. Right [...] a diabetic educatorand has met with a supervisor pipelines. No one has started her on insulin [...] electronic medical record, andcommunicating with other health home health caregiver and/or carecoordination. Please see note for details. [...] The BPP was 09/30. Homar Medrano APRN BRINE TANK SEPARATOR OPERATOR IMG MFM US ORDERABLES from Last 3 Months Care Teams Fire Prevention Engineer Relationship Specialty Start Date End Date Tre Ba MD [address] [place] [address] [facility] [address] [place], [place] [id number] PCP - General prevention specialist 01/15/22 Bassem Pathak MD [address] [place], [place] [address] Assigned OBGYN Provider 08/16/23
--- OUTSIDE RECORDS SUMMARY | 2023-08-31 15:23 | XMS_ITS | Encounter Summary ---
Author Organization [place] Address [address] [facility] [place] [address] Care Team Providers Care Chrome Cleaner Name Role Phone Tre Ba MD Primary Care Provide r Reason for Referral * Diagnostic Imaging Ultrasound (Routine) - Pending Review Specialty Diagnoses / Procedures Referred By Temo taylor Referred To Contact Radiology. Diagnoses Diabetes mellitus, type 2 (H) Polyhydramnios affecting Procedures [facility] Cristiane Rubin MD [address] [place] [address] Referral ID Status Reason Start Date Expiration Date V isits Requested Visits Authorized [id number] Pending Review 07/24/2023 07/23/2024 1 1 Reason for Visit * Diagnostic Imaging Ultrasound (Routine) - Pending Review Specialty Diagnoses / Procedures Referred By Temo taylor Referred To Contact Radiology. Diagnoses Diabetes mellitus, type 2 (H) Polyhydramnios affecting Procedures [facility] Cristiane Rubin MD [address] [place] [address] Referral ID Status Reason Start Date Expiration Date V isits Requested Visits Authorized [id number] Pending Review 07/24/2023 07/23/2024 1 1 Encounter Details Date Type Department Care Team (Latest Contact Info) Description 07/30/2023 3:25 PM CDT - 07/30/2023 11:59 PM CDT Hospital Encounter [facility] Maternal Medicine Center [address] [phone] Bassem Pathak MD [address] [place], [place] [address] Polyhydramnios affecting Discharge Disposition: Home or Self [...] Info) Description 09/02/2023 11:45 AM CDT Appointment [facility] Maternal Medicine Center [place] [address] [facility] [address] [place] [phone] Luz Elena Betts MD [address] [place], [place] [address] 09/02/2023 12:15 PM CDT Office Visit [facility] Maternal Medicine Center [place] [address] [facility] [address] [place] [phone] Luz Elena Betts MD [address] [place], [place] [address] 09/08/2023 11:45 AM CDT Appointment [facility] Maternal Medicine [facility] [address] [place] [address] Bassem Pathak MD [address] [place] [address] Mitch Jernigan MD [address] [place] [address] 09/08/2023 12:15 PM CDT Office Visit [facility] [address] [facility] [address] [place] [address] Bassem Pathak MD [address] [place] [address] Mitch Jernigan MD [address] [place] [address] documented as of this encounter Procedures Procedure Name Priority Date/Time Associated Diagnosis Comments [facility] BPP SINGLE Routine 07/30/2023 3:46 PM CDT Polyhydramnios affecting documented in this encounter Results * M BPP Single (07/30/2023 3:46 PM CDT) Anatomical [...] ? Study Date: ??07/30/2023 3:27pm Pat. NO: ??[id number] ?Referring ??MD: HOMAR MEDRANO Site: ??[place] ? Basin Cleaner: Lashonda Barlow RDMS : ??1985 ?Age: ?? [...] with MFM and once with PCP in [place]. Recommend delivery for GDM A2 and pregestational: ? Well controlled: [id number] ? Poorly controlled: 96h9x-27k1f ? Failed in-hospital attempt at control: 70r5v-[id number] Thank you for the opportunity to participate in the care of this patient. If you have questions regarding today's evaluation or if we can be of further service, please contact the Maternal- Medicine Center. anomalies may be present but not detected Procedure Note Bassem Pathak MD - 07/30/2023 BPP ----- Pat. Name: GRACECORNELIA GAMLBEABEL Study Date: 07/30/2023 3:27pm Pat. NO: [id number] Referring MD: HOMAR MEDRANO Site: [facility] Basin Cleaner: Lashonda Barlow RDMS : 1985 Age: 37 [...] here with MF and once withPCP in [place]. Recommend delivery for GDM A2 and pregestational: ? Well controlled: [id number] ? Poorly controlled: 34h4r-49x0b ? Failed in-hospital attempt at control: 67e2g-21y7x Thank you for the opportunity to participate [...] appears normal. Cristiane Patel MD IMG [facility] US ORDERABLE S documented in this encounter Visit Diagnoses Diagnosis Polyhydramnios affecting documented in this encounter Care Teams Chrome Cleaner Relationship Specialty Start Date End Date Tre Ba MD [facility] [phone] PCP - General paper cone maker 01/15/22 documented as of this encounter
--- OUTSIDE RECORDS SUMMARY | 2023-08-31 15:23 | XMS_ITS | Encounter Summary ---
Author Organization [place] Address [address] [place] [address] Care Team Providers Care Marine Engineering Technicians Name Role Phone Tre Ba MD Primary [...] Info) Description 09/02/2023 11:[address] [facility] Maternal Medicine [facility] [place] [address] [facility] [address] [place] [phone] Luz Elena Betts MD [address] [place], [place] [address] 09/02/2023 12:15 PM CDT Office Visit [facility] Medicine [facility] [place] [address] [facility] [address] [place] [phone] Luz Elena Betts MD [address] [place], [place] [address] 09/08/2023 11:45 AM CDT Appointment [facility] [address] [facility] [address] [place] [phone] Bassem Pathak MD [address] [place] [address] Mitch Jernigan MD [address] [place] [address] 09/08/2023 12:15 PM CDT Office Visit [facility] [address] [facility] [address] [place] [phone] Bassem Pathak MD [address] [place], [place] [address] Mitch Jernigan MD [address] [place], [place] [address] documented as of this encounter Visit Diagnoses Not on filedocumented in this encounter Care Teams Marine Engineering Technicians Relationship Specialty Start Date End Date Tre Ba MD [facility] [place], [place] [phone] PCP - General liner assembler 01/15/22 documented as of this encounter
--- OUTSIDE RECORDS SUMMARY | 2023-08-31 15:23 | XMS_ITS | Encounter Summary ---
Author Organization [place] Address [address] [facility] [address] [place] [address] Care Team Providers Care Occupational Ther Name Role Phone Tre Ba MD Primary Care Provide r Bassem Pathak MD Unavailable Reason for Visit * Reason Comments Ultrasound BPP- T2DM on insulin , mild poly Encounter Details Date Type Department Care Team (Late st Contact Info) Description 08/25/2023 12:15 PM CDT Office Visit [facility] [place] [address] [facility] [address] [place] [address] Bassem Pathak MD [address] [place] [address] Luz Elena Betts MD [address] [place] [address] Pre-existing type 2 diabetes mellitus [...] to patient on BPP. SBAR given to MFLambert GRESHAM, see their note in Epic. Maria R Cody RN documented in this encounter Plan of Treatment Upcoming Encounters Date Type Department Care Team (Late st Contact Info) Description 09/02/2023 11:45 AM CDT Appointment [facility] Maternal Medicine [place] [address] [place] [phone] Luz Elena Betts MD [address] [place] [address] 09/02/2023 12:15 PM CDT Office Visit [facility] Maternal Medicine [facility] [address] [place] [phone] Luz Elena Betts MD [address] [place] [address] 09/08/2023 11:45 AM CDT Appointment [facility] [address] [place] [phone] Bassem Pathak MD [address] [place], [place] [address] Mitch Jernigan MD [address] [place], [place] [address] 09/08/2023 12:15 PM CDT Office Visit [facility] M[facility] Medicine [facility] [place] [address] [facility] [address] [place] [phone] Bassem Pathak MD [address] [place], [place] [phone] Mitch Jernigan MD [address] [place], [place] [address] documented as of this encounter Visit Diagnoses Diagnosis Pre-existing type 2 diabetes mellitus during in third trimester- Primary Polyhydramnios in third trimester complication, single or unspecified fetus documented in this encounter Care Teams Occupational Ther Relationship Specialty Start Date End Date Tre Ba MD [facility] JESSICA [address] [address] PCP - General liquefier 01/15/22 Bassem Pathak MD [address] [place], [place] [address] Assigned OBGYN Provider 08/16/23 documented as of this encounter
--- OUTSIDE RECORDS SUMMARY | 2023-08-31 15:23 | XMS_ITS | Encounter Summary ---
Author Organization [place] Address [address] [facility] [place] [address] Care Team Providers Care Customer Support Advisor Name Role Phone Tre Ba MD Primary Care Provide r Bassem Pathak MD Unavailable Reason for Visit * Reason Comments Ultrasound RL2/BPP- DM2 poor co ntrol Encounter Details Date Type Department Care Team (Late st Contact Info) Description 08/21/2023 12:15 PM CDT Office Visit [facility] M[facility] Medicine Center [place] [address] [facility] [address] [place] [address] Cristiane Patel MD [address] [place] [address] Mitch Jernigan MD [address] [place] [address] Pre-existing type 2 diabetes mellitus [...] for details of today's US at the [facility]. Mitch Jernigan MD Maternal- Medicine documented in this encounter Nursing Notes * Laura Vila RN - 08/21/2023 12:15 PM CDT Pt at [facility] for ultrasound- see detailed report under imaging tab. Pt reports positive movement, denies other concerns at this time. Has been able to meat pickler insulin- reports fasting value of 93,after meal 115. SBAR given to MD. documented in this encounter Plan of Treatment Upcoming Encounters Date Type Department Care Team (Late st Contact Info) Description 09/02/2023 11:45 AM CDT Appointment [facility] Medicine [place] [address] [facility] [address] [place] [phone] Luz Elena Betts MD [address] [place], [place] [id number] 09/02/2023 12:15 PM CDT Office Visit [facility] Medicine [facility] [address] [facility] [address] [place] [phone] Luz Elena Betts MD [address] [place], [place] [address] 09/08/2023 11:45 AM CDT Appointment [facility] Medicine [facility] [address] [place] [phone] Bassem Pathak MD [address] [place], [place] [address] Mitch Jernigan MD [address] [place] [address] 09/08/2023 12:15 PM CDT Office Visit [facility] Maternal Medicine [facility] [address] [facility] [address] [place] [address] Bassem Pathak MD [address] [place] [address] Mitch Jernigan MD [address] [place] [address] documented as of this encounter Visit Diagnoses Diagnosis Pre-existing type 2 diabetes mellitus during in third trimester- Primary Polyhydramnios affecting documented in this encounter Care Teams Customer Support Advisor Relationship Specialty Start Date End Date Tre Ba MD [address] [facility] [address] [place] [address] PCP - General glass tube bender 01/15/22 Bassem Pathak MD [address] [place], [place] [phone] Assigned OBGYN Provider 08/16/23 documented as of this encounter
--- OUTSIDE RECORDS SUMMARY | 2023-08-31 15:23 | XMS_ITS | Encounter Summary ---
Author Organization [place] Address [address] [facility] [place] [address] Care Team Providers Care Supervisor [employer]er [employer] Name Role Phone Tre Ba MD Primary Care Provide r Reason for Referral * Diagnostic Imaging Ultrasound (Routine) - Pending Review Specialty Diagnoses / Procedures Referred By Temo taylor Referred To Contact Radiology. Diagnoses Diabetes mellitus, type 2 (H) Polyhydramnios affecting Procedures [facility] Cristiane Rubin MD [address] [place] [address] Referral ID Status Reason Start Date Expiration Date V isits Requested Visits Authorized [id number] Pending Review 07/24/2023 07/23/2024 1 1 Reason for Visit * Diagnostic Imaging Ultrasound (Routine) - Pending Review Specialty Diagnoses / Procedures Referred By Temo taylor Referred To Contact Radiology. Diagnoses Diabetes mellitus, type 2 (H) Polyhydramnios affecting Procedures [facility] Cristiane Rubin MD [address] [place] [address] Referral ID Status Reason Start Date Expiration Date V isits Requested Visits Authorized [id number] Pending Review 07/24/2023 07/23/2024 1 1 Encounter Details Date Type Department Care Team (Latest Contact Info) Description 08/14/2023 3:30 PM CDT - 08/14/2023 11:59 PM CDT Hospital Encounter [facility] M[facility] Medicine Center [place] [address] [facility] [address] [place] [address] Cristiane Patel MD [address] [place], [place] [address] Mitch Jernigan MD [address] [place], [place] [address] Polyhydramnios affecting Discharge Disposition: Home or Self [...] Info) Description 09/02/2023 11:45 AM CDT Appointment [facility] M[facility] Medicine Center [place] [address] [place] [phone] Luz Elena Betts MD [address] [place], [place] [address] 09/02/2023 12:15 PM CDT Office Visit [facility] M[facility] Medicine [facility] [place] [address] [place] [phone] Luz Elena Betts MD [address] [place], [place] [address] 09/08/2023 11:45 AM CDT Appointment [facility] M[facility] Medicine [facility] [place] [address] [place] [phone] Bassem Pathak MD [address] [place], [place] [phone] Mitch Jernigan MD [address] [place], [place] [id number] 09/08/2023 12:15 PM CDT Office Visit [facility] Maternal Medicine [facility] [address] [place] [phone] Bassem Pathak MD [address] [place], [place] [phone] Mitch Jernigan MD [address] [place] [address] documented as of this encounter Procedures Procedure Name Priority Date/Time Associated Diagnosis Comments M BPP SINGLE Routine 08/14/2023 3:54 PM CDT Polyhydramnios affecting documented in this encounter Results * M BPP Single (08/14/2023 3:54 PM CDT) Anatomical Region Laterality Modality Ultrasound 08/14/2023 3:35 PM CDT Impressions 08/14/2023 4:06 PM CDT IMPRESSION ----- 1) Mild polyhydramnios. 2) BPP is reassuring. Narrative 08/14/2023 4:06 PM CDT ?BPP ----- Pat. Name: CORNELIA WILDERABEL ? Study Date: ??08/14/2023 3:35pm Pat. NO: ??[id number] ?Referring ??MD: HOMAR MEDRANO Site: ? Deputy Editor In Chief: Gemma Pinzon RDMS : ??1985 ?Age: ?? [...] has not contacted your office or her shareholder. Currently we are not reviewing her blood [...] WILDER Study Date: 08/14/2023 3:35pm Pat. NO: [id number] Referring MD: HOMAR MEDRANO Site: Deputy Editor In Chief: Gemma Pinzon RDMS : 1985 Age: 37 [...] and has notcontacted your office or her shareholder. Currently we are not reviewing her blood [...] 2) BPP is reassuring. Cristiane Patel MD [facility] ORDERABLE S documented in this encounter Visit Diagnoses Diagnosis Polyhydramnios affecting documented in this encounter Care Teams Supervisor [employer] Relationship Specialty Start Date End Date Tre Ba MD [facility] [phone] PCP - General nurse case management 01/15/22 documented as of this encounter
--- OUTSIDE RECORDS SUMMARY | 2023-08-31 15:23 | XMS_ITS | Encounter Summary ---
Author Organization [place] Address [address] [facility] [place] [address] Care Team Providers Care Sushi Chef Name Role Phone Tre Ba MD Primary Care Provide r Encounter Details Date Type Department Care Team (Late st Contact Info) Description 07/24/2023 Medical Correspondence [facility] Mgmt [facility] [address] [place] [address] Scan, Non-Provider Social History Tobacco Use [...] CDT Appointment [facility] M[facility] Medicine [facility] [place] [address] [place] [address] Luz Elena Betts MD [address] [facility] [address] [place], [place] [address] 09/02/2023 12:15 PM CDT Office Visit [facility] [place] [address] [place] [address] Luz Elena Betts MD [address] [place], [place] [address] 09/08/2023 11:45 AM CDT Appointment [facility] Maternal Medicine [facility] [address] [facility] [address] [place] [phone] Bassem Pathak MD [address] [place], [place] [address] Mitch Jernigan MD [address] [place] [address] 09/08/2023 12:15 PM CDT Office Visit [facility] Medicine [facility] [address] [place] [phone] Bassem Pathak MD [address] [place] [address] Mitch Jernigan MD [address] [place], [place] [address] documented as of this encounter Visit Diagnoses Not on filedocumented in this encounter Care Teams Sushi Chef Relationship Specialty Start Date End Date Tre Ba MD [facility] [address] [facility] 100 [place] [address] PCP - General medical territory manager 01/15/22 documented as of this encounter
--- OUTSIDE RECORDS SUMMARY | 2023-08-31 15:23 | XMS_ITS | Encounter Summary ---
Author Organization [place] Address [address] [place] [address]. [place] [address] Care Team Providers Care Guest Relation Officer Name Role Phone Tre Ba MD Primary Care Provide r Bassem Pathak MD Unavailable [phone] Encounter Details Date Type Department Care Team (Late st Contact Info) Description 08/26/2023 Telephone [facility] [address] [place] [phone] Cheri Peters LPN Social History Tobacco [...] Department Care Team (Late Contact Info) Description 09/02/2023 11:45 AM CDT Appointment [facility] Maternal Medicine Center [place] [address] [facility] [address] [place] [address] Luz Elena Betts MD [address] [place] [address] 09/02/2023 12:15 PM CDT Office Visit [facility] Medicine [place] [address] [facility] [address] [place] [phone] Luz Elena Betts MD [address] [place] [address] 09/08/2023 11:45 AM CDT Appointment [place] [address] [facility] [address] [place] [phone] Bassem Pathak MD [address] [place] [phone] Mitch Jernigan MD [address] [place] [address] 09/08/2023 12:15 PM CDT Office Visit [place] [address] [facility] [address] [place] [phone] Bassem Pathak MD [address] [place] [phone] Mitch Jernigan MD [address] [place], [place] [address] documented as of this encounter Visit Diagnoses Not on filedocumented in this encounter Care Teams Guest Relation Officer Relationship Specialty Start Date End Date Tre Ba [facility] [address] [address] PCP - General night guard 01/15/22 Bassem Pathak MD [address] [place] [address] Assigned OBGYN Provider 08/16/23 documented as of this encounter
--- OUTSIDE RECORDS SUMMARY | 2023-08-31 15:23 | XMS_ITS | Encounter Summary ---
Author Organization [place] Address Pending sale to [facility] [address] Care Team Providers Care Sales Coordinator Name Role Phone Tre Ba MD Primary Care Provide r Bassem Pathak MD Unavailable Reason for Referral * Diagnostic Imaging Ultrasound (Routine) - Pending Review Specialty Diagnoses / Procedures Referred By Temo taylor Referred To Contact Radiology. Diagnoses Diabetes mellitus, type 2 (H) Polyhydramnios affecting Procedures [facility] US Comprehensive Single F/U Cristiane Patel MD [address] [place] [address] Referral ID Status Reason Start Date Expiration Date V isits Requested Visits Authorized [id number] Pending Review 07/24/2023 07/23/2024 1 1 Reason for Visit * Diagnostic Imaging Ultrasound (Routine) - Pending Review Specialty Diagnoses / Procedures Referred By Temo taylor Referred To Contact Radiology. Diagnoses Diabetes mellitus, type 2 (H) Polyhydramnios affecting Procedures [facility] US Comprehensive Single F/U Cristiane Patel MD [address] [place] [address] Referral ID Status Reason Start Date Expiration Date V isits Requested Visits Authorized [id number] Pending Review 07/24/2023 07/23/2024 1 1 Encounter Details Date Type Department Care Team (Latest Contact Info) Description 08/21/2023 11:45 AM CDT - 08/21/2023 11:59 PM CDT Hospital Encounter [facility] Maternal Medicine Center [place] [address] [facility] [address] [place] [phone] Cristiane Patel MD [address] [place] [address] Mitch Jernigan MD [address] [place] [address] Polyhydramnios affecting Discharge Disposition: Home [...] Info) Description 09/02/2023 11:45 AM CDT Appointment [facility] Maternal Medicine [facility] [address] [facility] [address] [place] [phone] Luz Elena Betts MD [address] [place] [address] 09/02/2023 12:15 PM CDT Office Visit [facility] Maternal Medicine [place] [address] [facility] [address] [place] [phone] Luz Elena Betts MD [address] [place], [place] [address] 09/08/2023 11:45 AM CDT Appointment [facility] Medicine [place] [address] [facility] [address] [place] [phone] Bassem Pathak MD [address] [place], [place] [phone] Mitch Jernigan MD [address] [place], [place] [address] 09/08/2023 12:15 PM CDT [facility] Visit [facility] Medicine [place] [address] [facility] [address] [place] [phone] Bassem Pathak MD [address] [place], [place] [phone] Mitch Jernigan MD [address] [place], [place] [phone] documented as of this encounter Procedures Procedure Name Priority Date/Time Associated Diagnosis Comments [facility] US COMPREHENSIVE SINGLE F/U Routine 08/21/2023 12:39 PM CDT Polyhydramnios affecting documented in this encounter Results * [facility] US Comprehensive Single F/U (08/21/2023 12:39 [...] CDT ?Comp Follow Up ----- Pat. Name: GRACESHEBA ? Study Date: ??08/21/2023 11:58am Pat. NO: ??[id number] ?Referring ??MD: HOMAR MEDRANO Site: ? Corporate Strategist: Yamila Dutton RDMS : ??1985 ?Age: ?? [...] lb 4 ?oz EFW by ? Hadlock ([id number]) Head / Face / Neck Biometry: Supervisor Inspecting ?4.4 ? mm ANATOMY ----- The following [...] Heart / Thorax ?RVOT view. LVOT view. 7-qeorsj-fkvshxy view. Spine ?Cervical spine. sex: male. MATERNAL STRUCTURES ----- Cervix ?Suboptimal Right Ovary ?Not examined Left Ovary ?Not examined RECOMMENDATION ----- We discussed the findings on today's ultrasound with the patient. The patient has the following ultrasounds already scheduled: 1) BPP once weekly at your clinic. 2) BPP once weekly at [facility]. 3) echo on 08/28/23 with Pediatric Cardiology. 4) growth assessment at [facility] in 4 weeks. Given the polyhydramnios [...] WILDER Study Date: 08/21/2023 11:58am Pat. NO: [id number] Referring MD: HOMAR MEDRANO Site: Corporate Strategist: Yamila Dutton RDMS : 1985 Age: 37 [...] EFW (lb,oz) 6 lb 4oz EFW by Hadlock([id number]) Head / Face / Neck Biometry: Supervisor Inspecting 4.4mm ANATOMY ----- The following structures appear normal: Head / Neck Cranium. Head size. Head shape.Lateral ventricles. Midline falx. Cavum septi pellucidi. Cerebellum.Cisterna magna. Thalami. Face Profile. Heart / Thorax 4-chamber view. Diaphragm. Abdomen Stomach. Kidneys. Bladder. Spine Thoracic spine. Lumbar spine.Sacral spine. The following structures were documented previously: Face Lips. Nose. Heart / Thorax RVOT view. LVOT view. 7-usedis-ssztlnwqlio. Spine Cervical spine. sex: male. MATERNAL STRUCTURES ----- Cervix Suboptimal Right Ovary Not examined Left Ovary Not examined RECOMMENDATION ----- We discussed the findings on today's ultrasound with the patient. The patient has the following ultrasounds already scheduled: 1) BPP once weekly at your clinic. 2) BPP once weekly at [facility]. 3) echo on 08/28/23 with Pediatric Cardiology. 4) growth assessment at [facility] in 4 weeks. Given the polyhydramnios [...] 5. BPP is reassuring. Cristiane Patel MD [facility] US ORDERABLE S documented in this encounter Visit Diagnoses Diagnosis Polyhydramnios affecting documented in this encounter Care Teams Sales Coordinator Relationship Specialty Start Date End Date Tre Ba MD [facility] [address] [place] [address] PCP - General manufacturing technology professor 01/15/22 Bassem Pathak MD [address] [place], [place] [address] Assigned OBGYN Provider 08/16/23 documented as of this encounter
--- OUTSIDE RECORDS SUMMARY | 2023-08-31 15:23 | XMS_ITS | Encounter Summary ---
Author Organization [place] Address [address] [facility] [place] [address] Care Team Providers Care Irrigation Worker Name Role Phone Tre Ba MD Primary Care Provide r Bassem Pathak MD Unavailable [phone] Encounter Details Date Type Department Care Team [...] Info) Description 09/02/2023 11:45 AM CDT Appointment [facility] Maternal Medicine Center [place] [address] [place] [address] Luz Elena Betts MD [address] [place] [address] 09/02/2023 12:15 PM CDT Office Visit [facility] Maternal Medicine Center [place] [address] [place] [phone] Luz Elena Betts MD [address] [place], [place] [address] 09/08/2023 11:45 AM CDT Appointment [facility] Medicine [facility] [address] [facility] [address] [place] [phone] Bassem Pathak MD [address] [place], [place] [address] Mitch Jernigan MD [address] [place], [place] [address] 09/08/2023 12:15 PM CDT Office Visit [facility] Medicine [facility] [address] [facility] [address] [place] [phone] Bassem Pathak MD [address] [place], [place] [address] Mitch Jernigan MD [address] [place], [place] [address] documented as of this encounter Visit Diagnoses Not on filedocumented in this encounter Care Teams Irrigation Worker Relationship Specialty Start Date End Date Tre Ba MD [facility] [address] [place], [place] [phone] PCP - General rolls baker 01/15/22 Bassem Pathak MD [address] [place], [place] [address] Assigned OBGYN Provider 08/16/23 documented as of this encounter
--- OUTSIDE RECORDS SUMMARY | 2023-08-31 15:23 | XMS_ITS | Encounter Summary ---
Author Organization [place] Address [address] [facility] [place] [address] Care Team Providers Care Automobile Bumper Straightener Name Role Phone Tre Ba MD Primary [...] Info) Description 09/02/2023 11:45 AM CDT Appointment [facility] Maternal Medicine Center [address] [facility] [address] [place] [phone] Luz Elena Betts MD [address] [place], [place] [address] 09/02/2023 12:15 PM CDT Office Visit [facility] Maternal Medicine Center [address] [facility] [address] [place] [phone] Luz Elena Betts MD [address] [place], [place] [address] 09/08/2023 11:45 AM CDT Appointment [facility] [address] [facility] [address] [place] [phone] Bassem Pathak MD [address] [place] [address] Mitch Jernigan MD [address] [place] [address] 09/08/2023 12:15 PM CDT Office Visit [facility] [address] [facility] [address] [place] [phone] Bassem Pathak MD [address] [place], [place] [address] Mitch Jernigan MD [address] [place], [place] [address] documented as of this encounter Visit Diagnoses Not on filedocumented in this encounter Care Teams Automobile Bumper Straightener Relationship Specialty Start Date End Date Tre Ba MD [facility] [facility] 100 [place], [place] [phone] PCP - General wood miller 01/15/22 documented as of this encounter
--- OUTSIDE RECORDS SUMMARY | 2023-08-31 15:23 | XMS_ITS | Encounter Summary ---
Author Organization [place] Address [address] [facility] [place] [address] Care Team Providers Care Manager Risk Management Name Role Phone Tre Ba MD Primary Care Provide r Reason for Visit * Reason Onset Date Comments Care 07/29/2023 Encounter Details Date Type Department Care Team (Late st Contact Info) Description 07/29/[address] [facility] Maternal Medicine Center [place] [address] [facility] [address] [place] [address] Carrie Smith, RN Care (/) [...] RN - 07/29/2023 12:07 PM CDT [facility] called to discuss coordinating care between [facility] clinic and [facility]. Plan for [facility] to do once weekly NSTs in the beginning of the week starting at 32 weeks and [facility] will do BPPs toward the end of the week starting at 32 weeks. [facility]. Pt will need to schedule more weekly BPPs after 08/21/23. Carrie Smith RN on 07/29/2023 at 12:11 PM documented in this encounter Plan of Treatment Upcoming Encounters Date Type Department Care Team (Late st Contact Info) Description 09/02/2023 11:[address] [facility] Maternal Medicine [place] [address] [place] [phone] Luz Elena Betts MD [address] [place] [address] 09/02/2023 12:15 PM CDT Office Visit [facility] Maternal Medicine [place] [address] [facility] [address] [place] [phone] Luz Elena Betts MD [address] [place], [place] [address] 09/08/2023 11:[address] [facility] Maternal Medicine [place] [address] [facility] [address] [place] [phone] Bassem Pathak MD [address] [place], [place] [address] Mitch Jernigan MD [address] [place], [place] [address] 09/08/2023 12:15 PM CDT Office Visit [facility] Maternal Medicine [place] [address] [address] [facility] [address] [place] [phone] Bassem Pathak MD [address] [place], [place] [address] Mitch Jernigan MD [address] [place] [address] documented as of this encounter Visit Diagnoses Not on filedocumented in this encounter Care Teams Manager Risk Management Relationship Specialty Start Date End Date Tre Ba MD [address] [facility] 100 [place], [place] [phone] PCP - General internal medicine nurse 01/15/22 documented as of this encounter
--- OUTSIDE RECORDS SUMMARY | 2023-08-31 15:23 | XMS_ITS | Clinical Summary ---
Author Organization [place] Address [address] [place] [address]. [place] [address] Care Team Providers Care Rolled Materials Worker Name Role Phone Tre Ba MD Primary Care Provide r Bassem Pathak MD Unavailable [phone] Allergies No known active allergies Medications Medication [...] Type Department Care Team Description 08/26/2023 Telephone [facility] [address] [place] [phone] Cheri Peters LPN 08/25/2023 12:15 PM CDT Office Visit [facility] [address] [facility] [address] [place] [address] Bassem Pathak MD Yamamura, Yasuko, MD Pre-existing type 2 diabetes mellitus during in third trimester (Primary Dx); Polyhydramnios in third trimester complication, single or unspecified fetus 08/25/2023 11:45 AM CDT - 08/25/2023 11:59 PM CDT Hospital Encounter [facility] [place] [address] [place] [address] Bassem Pathak MD Yamamura, Yasuko, MD Pre-existing type 2 diabetes mellitus during in third trimester Discharge Disposition: Home or Self Care 08/25/2023 Travel 08/21/2023 12:15 PM CDT Office Visit [facility] [place] [address] [place] [phone] Cristiane Patel MD Rauk, Mitch Walker MD Pre-existing type 2 diabetes mellitus during in third trimester (Primary Dx); Polyhydramnios affecting 08/21/2023 11:45 AM CDT - 08/21/2023 11:59 PM CDT Hospital Encounter [facility] [place] [address] [place] [phone] Cristiane Patel MD Rauk, Mitch Walker MD Polyhydramnios affecting Discharge Disposition: Home or Self Care 08/21/2023 Travel 08/14/2023 4:00 PM CDT Office Visit [facility] [place] [address] [facility] [address] [place] [phone] Cristiane Patel MD Rauk, Mitch Walker MD Pre-existing type 2 diabetes mellitus during in third trimester (Primary Dx); Polyhydramnios affecting 08/14/2023 3:30 PM CDT - 08/14/2023 11:59 PM CDT Hospital Encounter [facility] [place] [address] [place] [phone] Cristiane Patel MD Rauk, Phillip Neil, MD Polyhydramnios affecting Discharge Disposition: Home or Self Care 08/14/2023 Travel 08/03/2023 Telephone [facility] [address] [place] [phone] Laura Abdi, GC Results (Low Risk Expanded NIPT) 07/30/2023 4:00 PM CDT Office Visit [facility] [address] [place] [phone] Bassem Pathak MD Pre-existing type 2 diabetes mellitus during in third trimester (Primary Dx) 07/30/2023 3:25 PM CDT - 07/30/2023 11:59 PM CDT Hospital Encounter [facility] [place] [address] [phone] Bassem Pathak MD Polyhydramnios affecting Discharge Disposition: Home or Self Care 07/30/2023 Travel 07/29/2023 Telephone [facility] [address] [place] [address] Carrie Smith, DJ Care (/) 07/24/2023 2:40 PM CDT Lab [facility] [address] [place] [phone] Cristiane Patel MD Multigravida of advanced maternal age in third trimester 07/24/2023 2:00 PM CDT Office Visit [facility] [address] [place] [phone] Cristiane Patel MD with type 2 diabetes mellitus in third trimester (Primary Dx); Polyhydramnios affecting 07/24/2023 12:50 PM CDT - 07/24/2023 11:59 PM CDT Hospital Encounter [facility] [address] [place] [phone] Cristiane Patel MD related condition, antepartum Discharge Disposition: Home or Self Care 07/24/2023 12:45 PM CDT Office Visit [facility] [address] [facility] [address] [place] [phone] Cristiane Patel MD Daykin, Emily C, CONCEPCION Multigravida of advanced maternal age in third trimester (Primary Dx); related condition, antepartum 07/24/2023 Medical Correspondence [facility] [address] [place] [phone] Scan, Non-Provider 07/24/2023 Travel 07/08/2023 PRE VISIT [facility] [address] [facility] [address] [place] [phone] Melissa Aguiar RN Ultrasound (L2-AMA) 07/03/2023 Medical Correspondence [facility] [address] [place] [address] Scan, Non-Provider 07/03/2023 Transcribe Orders [facility] [place] [address] [facility] [address] [place] [phone] Homar Medrano, CAPACITY PLANNING ANALYST SANDBLASTER GLASS related condition, antepartum (Primary Dx) from Last [...] Comments Blood Pressure 112/59 01/20/2022 11:00 PM GENERAL II FARMWORKER Pulse 80 01/20/2022 11:00 PM GENERAL II FARMWORKER Temperature 37.1 ??C (98.7 ??F) 01/20/2022 10:[address] Respiratory Rate 16 01/20/2022 11:00 PM GENERAL II FARMWORKER Oxygen Saturation 100% 01/20/2022 11:30 PM GENERAL II FARMWORKER Inhaled Oxygen Concentration - - Weight 76.4 kg (168 lb 6.4 oz) 01/20/2022 4:42 P M GENERAL II FARMWORKER Height 154.9 cm (5' 1) 01/20/2022 4:42 PM GENERAL II FARMWORKER Body Mass Index 31.82 01/20/2022 4:42 PM GENERAL II FARMWORKER Plan of Treatment Upcoming Encounters Date Type Department Care Team (Late st Contact Info) Description 09/02/2023 11:45 AM CDT Appointment [facility] [place] [address] [place] [phone] Luz Elena Betts MD [address] [place], [place] [address] 09/02/2023 12:15 PM CDT Office Visit [facility] [place] [address] [facility] [address] [place] [phone] Luz Elena Betts MD [address] [place], [place] [address] 09/08/2023 11:45 AM CDT Appointment [facility] [place] [address] [facility] [address] [place] [phone] Bassem Pathak MD [address] [place], [place] [address] Mitch Jernigan MD [address] [place], [place] [address] 09/08/2023 12:15 PM CDT Office Visit [facility] [place] [address] [facility] [address] [place] [phone] Bassem Pathak MD [address] [place], [place] [address] Mithc Jernigan MD [address] [address] [place] [address] Health Maintenance Due Date Last Done Comments ADVANCE CARE PLANNING 1985 ANNUAL REVIEW OF HM ORDERS 1985 GLUCOSE 1987 YEARLY PREVENTIVE VISIT 1987 HIV SCREENING 10/21/2002 HEPATITIS C SCREENING 10/21/2005 HEPATITIS B IMMUNIZATION (1 of 3 - 19+ 3-dose series) 10/21/2006 COVID-19 Vaccine (1 - 2022-2 4 season) 2022 PHQ-2 (once per calendar [...] Procedure Name Priority Date/Time Associated Diagnosis Comments [facility] SINGLE Routine 08/25/2023 12:05 PM CDT Pre-existing type 2 diabetes mellitus during in third trimester [facility] SINGLE F/U Routine 08/21/2023 12:39 PM CDT Polyhydramnios affecting [facility] SINGLE Routine 08/14/2023 3:54 PM CDT Polyhydramnios affecting [facility] BPP SINGLE Routine 07/30/2023 3:46 PM CDT Polyhydramnios affecting [facility] NON-INVASIVE SCREENING PREQUEL Routine 07/24/2023 2:49 PM CDT Multigravida of advanced maternal age in third trimester [facility] US COMPREHENSIVE SINGLE Routine 07/24/2023 2:13 PM CDT related condition, antepartum from Last 3 Months Results * [facility] BPP Single (08/25/2023 12:05 PM CDT) [...] ? Study Date: ??08/25/2023 11:48am Pat. NO: ??[id number] ?Referring ??MD: HOMAR MEDRANO Site: ? Professor Of French: Micha Gage RDMS : ??1985 ?Age: ?? [...] surveillance with twice weekly BPP, alternating between [facility] and [facility]. Return to primary provider for continued [...] EDWARDS Study Date: 08/25/2023 11:48am Pat. NO: [id number] Referring MD: HOMAR MEDRANO Site: Professor Of French: Micha Gage RDMS : 1985 Age: 37 [...] Continue [facility]. Return to primary provider for continued [...] is reassuring. 3) Mild polyhydramnios is noted. Bassme Pathak MD [facility] US ORDERABLE S * [facility] US Comprehensive Single F/U (08/21/2023 12:39 [...] CDT ?Comp Follow Up ----- Pat. Name: CASTRO EDWARDSL ? Study Date: ??08/21/2023 11:58am Pat. NO: ??[id number] ?Referring ??MD: HOMAR MEDRANO Site: ? Professor Of French: Yamila Dutton RDMS : ??1985 ?Age: ?? [...] lb 4 ?oz EFW by ? Hadlock ([id number]) Head / Face / Neck Biometry: Engineering Mathematician ?4.4 ? mm ANATOMY ----- The following [...] Heart / Thorax ?RVOT view. LVOT view. 8-cjmdyz-ijgwfua view. Spine ?Cervical spine. sex: male. MATERNAL STRUCTURES ----- Cervix ?Suboptimal Right Ovary ?Not examined Left Ovary ?Not examined RECOMMENDATION ----- We discussed the findings on today's ultrasound with the patient. The patient has the following ultrasounds already scheduled: 1) BPP once weekly at your clinic. 2) BPP once weekly at [facility]. 3) echo on 08/28/23 with Pediatric Cardiology. 4) growth assessment at [facility] in 4 weeks. Given the polyhydramnios [...] EDWARDS Study Date: 08/21/2023 11:58am Pat. NO: [id number] Referring MD: HOMAR MEDRANO Site: Professor Of French: Yamila Dutton RDMS : 1985 Age: 37 [...] EFW (lb,oz) 6 lb 4oz EFW by Hadlock([id number]) Head / Face / Neck Biometry: Engineering Mathematician 4.4mm ANATOMY ----- The following structures appear normal: Head / Neck Cranium. Head size. Head shape.Lateral ventricles. Midline falx. Cavum septi pellucidi. Cerebellum.Cisterna magna. Thalami. Face Profile. Heart / Thorax 4-chamber view. Diaphragm. Abdomen Stomach. Kidneys. Bladder. Spine Thoracic spine. Lumbar spine.Sacral spine. The following structures were documented previously: Face Lips. Nose. Heart / Thorax RVOT view. LVOT view. 1-goklya-sosjlfurmee. Spine Cervical spine. sex: male. MATERNAL STRUCTURES ----- Cervix Suboptimal Right Ovary Not examined Left Ovary Not examined RECOMMENDATION ----- We discussed the findings on today's ultrasound with the patient. The patient has the following ultrasounds already scheduled: 1) BPP once weekly at your clinic. 2) BPP once weekly at [facility]. 3) echo on 08/28/23 with Pediatric Cardiology. 4) growth assessment at [facility] in 4 weeks. Given the polyhydramnios [...] 5. BPP is reassuring. Cristiane Patel MD [facility] US ORDERABLE S * [employer] Non-Invasive Screening???Prequel (07/24/2023 2:49 PM CDT) See Scanned Result [employer] NON-INVASIVE SCREENING PREQUEL-Scann ed 08/02/2023 7:16 PM CDT [employer] Blood STRUCTURE OF RIGHT UPPER LIMB / Unknown Venipuncture / Unknown 07/24/2023 2:49 PM CDT 07/24/2023 2:49 PM CDT Laura Calixto [place] [facility] - BLOOD ORDERABL ES [employer] [place] [address], [facility] [phone] * M Comprehensive Single (07/24/2023 2:13 PM CDT) Anatomical [...] ? Study Date: ??07/24/2023 1:32pm Pat. NO: ??[id number] ?Referring ??MD: HOMAR MEDRANO Site: ??[facility] ? Professor Of French: Sujatha Joyce, RUST : ??1985 ?Age: ?? 37 ----- INDICATION [...] Biometry: BPD ?76.1 ?mm ? 30w 4d ?Josh BECK ?102.7 ?mm ? 30w 2d ? Nicolaides HC ?284.3 ?mm ?31w 1d ?Hadlock Cerebellum tr ?36.3 ? mm ?31w 2d ?Nicolaides AC ?281.4 ?mm ?32w 1d ?>99% ?Hadlock Femur ?53.1 ? mm ?28w 1d ?Hadlock Humerus ?52.9 ?mm ? 30w 6d ?Elian Weight Calculation: EFW ? 1,631 ?g ? 94% ?Hadlock EFW (lb,oz) ? 3 lb 10 ?oz EFW by ?Hadlock ([id number]-FL) Head / Face / Neck Biometry: Engineering Mathematician ? 3.6 ? mm CM ?5.7 ? [...] cava. Inferior vena cava. 3-vessel ? view. 9-ulhcny-hpkbgbt view. Cardiac position. Cardiac size. Cardiac rhythm. [...] are between 220-240. She is following a informatics educator and has met with a buffet attendant. No one has started her on insulin [...] medical record, and communicating with other health care assistant and/or care coordination. Please see note for details. Procedure Note Cristiane Patel MD - 07/24/2023 Comprehensive ----- Pat. Name: JACK EDWARDS Study Date: 07/24/2023 1:32pm Pat. NO: [id number] Referring MD: HOMAR MEDRANO Site: [facility] Professor Of French: Sujatha Joyce RDMS : 1985 Age: 37 ----- INDICATION ----- Advanced Maternal Age. Type 2 diabetes. History of Gestational Hypertension. METHOD ----- Transabdominal ultrasound examination. View: Sufficient ----- Gonzalez . Number of fetuses: 1 DATING ----- DateDetailsGest. age BROOKE LMP w + 6 d 10/10/2023 Prior assessment 03/03/2023 GA: 8 w +3 d28 w + 6 d 10/10/2023 U/S 4based upon AC, BPD, Femur, HC30 w + [...] 3 lb 10 oz EFW by Hadlock ([id number]-FL) Head / Face / Neck Biometry: Engineering Mathematician 3.6 mm CM 5.7 mm Nasal bone [...] Superior venacava. Inferior vena cava. 3-vessel view. 9-lchybt-bzjigmk view.Cardiac position. Cardiac size. Cardiac rhythm. Right [...] a diabetic educatorand has met with a buffet attendant. No one has started her on insulin [...] electronic medical record, andcommunicating with other health care assistant and/or carecoordination. Please see note for details. [...] 6. The BPP was 09/30. Homar Medrano APRN, CNP G M US ORDERABLES from Last 3 Months Care Teams Rolled Materials Worker Relationship Specialty Start Date End Date Tre Ba MD [facility] [facility] [address] [place] [address] PCP - General draw bench operator 01/15/22 Bassem Pathak MD [address] [facility] [address] [place] [address] Assigned OBGYN Provider 08/16/23
--- OUTSIDE RECORDS SUMMARY | 2023-08-31 15:23 | XMS_ITS | Encounter Summary ---
Author Organization [place] Address [address] [facility] [place] [address] Care Team Providers Care Hot Top Liner Helper Name Role Phone Tre Ba MD Primary Care Provide r Reason for Visit * Reason Onset Date Comments Results 08/03/2023 Low Risk Expande d NIPT Encounter Details Date Type Department Care Team (Late Contact Info) Description 08/03/2023 Telephone [facility] [address] [place] [phone] Laura Abdi GC [address] [place], [place] [address]E [facility] [address] [place] [address] Results (Low Risk Expanded NIPT) [...] Info) Description 09/02/2023 11:45 AM CDT Appointment [facility] [place] [address] [place] [address] Luz Elena Betts MD [address] [place] [address] 09/02/2023 12:15 PM CDT Office Visit [facility] Medicine [place] [address] [address] [facility] [address] [place] [phone] Luz Elena Betts MD [address] [place] [address] 09/08/2023 11:45 AM CDT Appointment [facility] Medicine [place] [address] [address] [facility] [address] [place] [phone] Bassem Pathak MD [address] [place] [address] Mitch Jernigan MD [address] [place] [address] 09/08/2023 12:15 PM CDT Office Visit [place] [address] [address] [facility] [address] [place] [phone] Bassem Pathak MD [address] [place] [address] Mitch Jernigan MD [address] [place] [address] documented as of this encounter Visit Diagnoses Not on filedocumented in this encounter Care Teams Hot Top Liner Helper Relationship Specialty Start Date End Date Tre Ba MD [facility] [address] [facility] [address] [place] [address] PCP - General telephone surveyor 01/15/22 documented as of this encounter
--- OUTSIDE RECORDS SUMMARY | 2023-08-31 15:24 | XMS_ITS | Encounter Summary ---
Author Organization [place] Address [address] [place] [address] Care Team Providers Care Wedding Photographer Name Role Phone Tre Ba MD Primary Care Provide r Reason for Referral * Consultation (Routine: Next available opening) - Pending Review Specialty Diagnoses / Procedures Referred By Contac t Referred To Contact Diagnoses related condition, antepartum Ilene Kaplan APRN CNP [facility] [address] [place] [address] Referral ID Status Reason Start Date Expiration Date V isits Requested Visits Authorized [id number] Pending Review 07/03/2023 07/02/2024 1 1 Comments AMA * Diagnostic Imaging Ultrasound (Routine) - Pending Review Specialty Diagnoses / Procedures Referred By Contac t Referred To Contact Radiology. Diagnoses related condition, antepartum Procedures MFM US Comprehensive Single Ilene Kaplan APRN CNP [facility] [address] [place] [address] Referral ID Status Reason Start Date Expiration Date V isits Requested Visits Authorized [id number] Pending Review 07/03/2023 07/02/2024 1 1 * Consultation (Routine: Next available opening) - Pending Review Specialty Diagnoses / Procedures Referred By Contac t Referred To Contact Diagnoses related condition, antepartum Ilene Kaplan APRN CNP [facility] [address] [place] [address] [facility] [address] [facility] [address] [place] [address] Referral ID Status Reason Start Date Expiration Date V isits Requested Visits Authorized [id number] Pending Review 07/03/2023 07/02/2024 1 1 Question Answer Preferred Location: [facility] [place] 10/10/2023 Ultrasound Complete US (14-17.6 weeks GA) US PROC NONE MFM Issue Advanced Maternal Age *MUST request Genetic Counseling MFM MD Consultation (unrelated to Ultrasound findings): No Inflammatory Bowel Disease Clinic: Joint MFM and GI Consultation: No Chronic Kidney Disease: Joint MFM and Nephrology Consultation No Genetic Counseling Consultation: Yes fax Ilene Kaplan [facility], Comments There is no height or [...] st Contact Info) Description 07/03/2023 Transcribe Orders [facility] [place] [address] [facility] [address] [place] [address] Ilene Kaplan APRN CNP [facility] [address] [place] [address] related condition, antepartum (Primary Dx) Social History [...] Info) Description 09/02/2023 11:45 AM CDT Appointment [facility]aternal Medicine [place] [address] [place] [phone] Luz Elena Betts MD [address] [place], [place] [address] 09/02/2023 12:15 PM CDT Office Visit [facility] Maternal Medicine [place] [address] [facility] [address] [place] [phone] Luz Elena Betts MD [address] [place], [place] [phone] 09/08/2023 11:45 AM CDT Appointment [facility] Medicine [place] [address] [facility] [address] [place] [phone] Bassem Pathak MD [address] [place], [place] [phone] Mitch Jernigan MD [address] [place], [place] [address] 09/08/2023 12:15 PM CDT Office Visit [facility] Medicine [place] [address] [facility] [address] [place] [phone] Bassem Pathak MD [address] [place], [place] [address] Mitch Jernigan MD [address] [address] Scheduled Referrals Name Type Priority Associated Diagnoses Orde r Schedule Mat Med Ctr Referral - Referral Routine: Next available opening related condition, antepartum Expected: 07/03/2023 (Approximate), Expires: 12/30/2023 [facility] Genetic Counseling Referral Routine: Next available opening related condition, antepartum Expected: 07/03/2023 (Approximate), Expires: 07/02/2024 documented as of this encounter Results * [facility] US Comprehensive Single (07/24/2023 2:13 PM [...] long and closed. 6. The BPP was 88. Narrative 07/24/2023 4:30 PM CDT ?Comprehensive ----- Pat. Name: SHEBA WILDER ? Study Date: ??07/24/2023 1:32pm Pat. NO: ??[id number] ?Referring ??MD: ILENE KAPLAN Site: ??[facility] ? Health Care Technician: Sujatha Joyce RDMS : ??1985 ?Age: ?? [...] 3 lb 10 ?oz EFW by ?Hadlock ([id number]) Head / Face / Neck Biometry: Suction Dredge Dumping Supervisor ? 3.6 ? mm CM ?5.7 ? [...] cava. Inferior vena cava. 3-vessel ? view. 1-lqjzij-fbraooq view. Cardiac position. Cardiac size. Cardiac rhythm. [...] free DNA drawn. They will contact Ms. Wilder when those results are available. We reviewed [...] are between 220-240. She is following a community educator and has met with a physician. No one has started her on insulin [...] medical record, and communicating with other health foster care worker and/or care coordination. Please see note for details. Procedure Note Cristiane Patel MD - 07/24/2023 Comprehensive ----- Pat. Name: SHEBA WILDER Study Date: 07/24/2023 1:[facility] Pat. NO: [id number] Referring MD: ILENE KAPLAN Site: [facility] Health Care Technician: Sujatha Joyce RDMS : 1985 Age: 37 [...] 3 lb 10 oz EFW by Hadlock ([id number]-ZF-FL) Head / Face / Neck Biometry: Suction Dredge Dumping Supervisor 3.6 mm CM 5.7 mm Nasal bone [...] Superior venacava. Inferior vena cava. 3-vessel view. 5-lhmhnr-bzfyleb view.Cardiac position. Cardiac size. Cardiac rhythm. Right [...] a diabetic educatorand has met with a physician. No one has started her on insulin [...] electronic medical record, andcommunicating with other health foster care worker and/or carecoordination. Please see note for details. [...] long and closed. 6. The BPP was /. Ilene Kaplan APRN [facility] documented in this encounter Visit Diagnoses Diagnosis related condition, antepartum- Primary related condition, antepartum documented in this encounter Care Teams Wedding Photographer Relationship Specialty Start Date End Date Tre Ba MD [address] [address] PCP - General transportation specialist 01/15/22 documented as of this encounter
--- OUTSIDE RECORDS SUMMARY | 2023-08-31 15:24 | XMS_ITS | Encounter Summary ---
Author Organization [place] Address [facility] [place] [address] Care Team Providers Care Avionics Systems Repairer Name Role Phone Tre Ba MD Primary Care Provide r Reason for Referral * Diagnostic Imaging Ultrasound (Routine) - Pending Review Specialty Diagnoses / Procedures Referred By Temo taylor Referred To Contact Radiology. Diagnoses related condition, antepartum Procedures [facility] US Comprehensive Single Homar Medrano APRN CNP [facility] [address] [place] [address] Referral ID Status Reason Start Date Expiration Date V isits Requested Visits Authorized [id number] Pending Review 07/03/2023 07/02/2024 1 1 Reason for Visit * Diagnostic Imaging Ultrasound (Routine) - Pending Review Specialty Diagnoses / Procedures Referred By Temo taylor Referred To Contact Radiology. Diagnoses related condition, antepartum Procedures [facility] US Comprehensive Single Homar Medrano APRN [facility] [address] [place] [address] Referral ID Status Reason Start Date Expiration Date V isits Requested Visits Authorized [id number] Pending Review 07/03/2023 07/02/2024 1 1 Encounter Details Date Type Department Care Team (Latest Contact Info) Description 07/24/2023 12:50 PM CDT - 07/24/2023 11:59 PM CDT Hospital Encounter [facility] [place] [address] [facility] [facility] [address] [place] [address] Cristiane Patel MD [address] [place], [place] [address] related condition, antepartum Discharge Disposition: Home or [...] Info) Description 09/02/2023 11:45 AM CDT Appointment [facility] [place] [address] [facility] [facility] [address] [place] [phone] Luz Elena Betts MD [address] [place], [place] [address] 09/02/2023 12:15 PM CDT Office Visit [facility] Maternal Medicine [facility] [address] [facility] [facility] [address] [place] [phone] Luz Elena Betts MD [address] [place], [place] [address] 09/08/2023 11:45 AM CDT Appointment [facility] Maternal Medicine [facility] [address] [place] [address] Bassem Pathak MD [address] [place] [address] Mitch Jernigan MD [address] [place] [address] 09/08/2023 12:15 PM CDT Office Visit [facility] [address] [place] [address] Bassem Pathak MD [address] [place] [address] Mitch Jernigan MD [address] [place] [address] documented as of this encounter Procedures Procedure Name Priority Date/Time Associated Diagnosis Comments [facility] US COMPREHENSIVE SINGLE Routine 07/24/2023 2:13 PM CDT related condition, antepartum documented in this encounter Results * [facility] US Comprehensive Single (07/24/2023 2:13 PM [...] 4:30 PM CDT ?Comprehensive ----- Pat. Name: CORNELIA WILDERABEL ? Study Date: ??07/24/2023 1:32pm Pat. NO: ??[id number] ?Referring ??MD: HOMAR MEDRANO Site: ??[facility] ? Financial Services Consultant: Sujatha Joyce RDMS : ??1985 ?Age: ?? [...] 3 lb 10 ?oz EFW by ?Hadlock (AII-LE-RB-FL) Head / Face / Neck Biometry: Kitchen Designer ? 3.6 ? mm CM ?5.7 ? [...] cava. Inferior vena cava. 3-vessel ? view. 6-ekrfaa-fczyvtv view. Cardiac position. Cardiac size. Cardiac rhythm. [...] are between 220-240. She is following a school vocational educator and has met with a director cardiac. No one has started her on insulin [...] medical record, and communicating with other health patient care associate and/or care coordination. Please see note for details. Procedure Note Cristiane Patel MD - 07/24/2023 Comprehensive ----- Pat. Name: JACK WILDER Study Date: 07/24/2023 1:32pm Pat. NO: [id number] Referring MD: HOMAR MEDRANO Site: [facility] Financial Services Consultant: Sujatha Joyce RDMS : 1985 Age: 37 [...] 3 lb 10 oz EFW by Hadlock (RZV-RH-PG-FL) Head / Face / Neck Biometry: Kitchen Designer 3.6 mm CM 5.7 mm Nasal bone [...] Superior venacava. Inferior vena cava. 3-vessel view. 0-taspri-ssvpzqs view.Cardiac position. Cardiac size. Cardiac rhythm. Right [...] free DNA drawn. They will contact Ms. Ramirezwhen those results are available. We reviewed that [...] a diabetic educatorand has met with a director cardiac. No one has started her on insulin [...] electronic medical record, andcommunicating with other health patient care associate and/or carecoordination. Please see note for details. [...] The BPP was 09/30. Homar Medrano APRN PNEUMATIC TUBE OPERATOR IMG MFM US ORDERABLES documented in this encounter Visit Diagnoses Diagnosis related condition, antepartum documented in this encounter Care Teams Avionics Systems Repairer Relationship Specialty Start Date End Date Tre Ba MD [address] [place] [address] PCP - General school occupational therapist 01/15/22 documented as of this encounter
--- OUTSIDE RECORDS SUMMARY | 2023-08-31 15:24 | XMS_ITS | Encounter Summary ---
Author Organization [place] Address [address] [place] [address]. [place] [address] Care Team Providers Care Agile Scrum Master Name Role Phone Tre Ba MD Primary Care Provide r Reason for Referral * (Routine) - Authorized Specialty Diagnoses / Procedures [facility] Referred To Contact Cardiology Diagnoses with type 2 diabetes mellitus in third trimester Procedures Echo (TTE) Complete Cristiane Patel MD [address] [place] [address] [facility] [address] [place] [phone] Referral ID Status Reason Start Date Expiration Date V isits Requested Visits Authorized [id number] Authorized 07/24/2023 07/23/2024 1 1 * Diagnostic Imaging Ultrasound (Routine) - Pending Review Specialty Diagnoses / Procedures Referred By Contac t Referred To Contact Radiology. Diagnoses Diabetes mellitus, type 2 (H) Polyhydramnios affecting Procedures [facility] US Comprehensive Single F/U Cristiane Patel MD [address] [place] [address] Referral ID Status Reason Start Date Expiration Date V isits Requested Visits Authorized [id number] Pending Review 07/24/2023 07/23/2024 1 1 * Diagnostic Imaging Ultrasound (Routine) - Pending Review Specialty Diagnoses / Procedures Referred By Contac t Referred To Contact Radiology. Diagnoses Diabetes mellitus, type 2 (H) Polyhydramnios affecting Procedures [facility] Cristiane Rubin MD [address] [place] [address] Referral ID Status Reason Start Date Expiration Date V isits Requested Visits Authorized [id number] Pending Review 07/24/2023 07/23/2024 1 1 * Diagnostic Imaging Ultrasound (Routine) - Pending Review Specialty Diagnoses / Procedures Referred By Contac t Referred To Contact Radiology. Diagnoses Diabetes mellitus, type 2 (H) Polyhydramnios affecting Procedures [facility] Cristiane Rubin MD [address] [place] [address] Referral ID Status Reason Start Date Expiration Date V isits Requested Visits Authorized [id number] Pending Review 07/24/2023 07/23/2024 1 1 Reason for Visit * Reason Comments Ultrasound L2- AMA, T2DM Encounter Details Date Type Department Care Team (Late st Contact Info) Description 07/24/2023 2:00 PM CDT Office Visit [facility] Medicine [facility] [place] [address] [facility] [address] [place] [address] Cristiane Patel MD [address] [place] [address] with type 2 diabetes mellitus in [...] of this encounter Progress Notes * Cristiane Patle MD - 07/24/2023 2:00 PM CDT The patient was seen for an ultrasound in the Maternal- Medicine Center at the [facility] today. For a detailed report of the ultrasound examination, please see the ultrasound report which can be found under the imaging tab. If you have questions regarding today's evaluation or if we can be of further service, please contact the Maternal- Medicine Center. Cristiane Patel MD Rpg Programmer Analyst, [employer] Maternal- Medicine [phone] (Pager) documented in this encounter Nursing Notes * Katina Espinoza RN - 07/24/2023 2:00 PM CDT Patient reports positive movement, no pain, no contractions, leaking of fluid, or bleeding. Reports blood sugar values elevated- fasting this morning was 175 reports after meals often 220. Has appointment in [place] next week to discuss starting insulin. Patient denies headache, visual changes, nausea/vomiting, epigastric pain related to preeclampsia. SBAR given to TREVOR GRESHAM, see their note in Epic. documented in this encounter Plan of Treatment Upcoming Encounters Date Type Department Care Team (Late st Contact Info) Description 09/02/2023 11:45 AM CDT Appointment [facility] Maternal Medicine [facility] [address] [place] [address] Luz Elena Betts MD [address] [place] [address] 09/02/2023 12:15 PM CDT Office Visit [facility] Maternal Medicine [facility] [address] [facility] [address] [place] [address] Luz Elena Betts MD [address] [place], [place] [phone] 09/08/2023 11:45 AM CDT Appointment [facility] Maternal Medicine [facility] [address] [place] [phone] Bassem Pathak MD [address] [place], [place] [phone] Mitch Jernigan MD [address] [place] [address] 09/08/2023 12:15 PM CDT Office Visit [facility] Maternal Medicine [facility] [address] [place] [phone] Bassem Pathak MD [address] [place], [place] [phone] Mitch Jernigan MD [address] [place], [place] [phone] Scheduled Orders Name Type Priority Associated Diagnoses Orde r Schedule Echo (TTE) Complete Echocardiography Routine with type 2 diabetes mellitus in third trimester Expected: 08/07/2023 (Approximate), Expires: 07/23/2024 documented as of this encounter Results * [facility] US Comprehensive Single F/U (08/21/2023 12:39 [...] ?Comp Follow Up ----- Pat. Name: JACK WILDER ? Study Date: ??08/21/2023 11:58am Pat. NO: ??[id number] ?Referring ??MD: HOMAR MEDRANO Site: ? Termite Inspector: Yamila Dutton RDMS : ??1985 ?Age: ?? [...] lb 4 ?oz EFW by ? Hadlock (OOM-UU-UN-FL) Head / Face / Neck Biometry: Park Maintainer ?4.4 ? mm ANATOMY ----- The following [...] Heart / Thorax ?RVOT view. LVOT view. 4-nkapgr-pazamvr view. Spine ?Cervical spine. sex: male. MATERNAL STRUCTURES ----- Cervix ?Suboptimal Right Ovary ?Not examined Left Ovary ?Not examined RECOMMENDATION ----- We discussed the findings on today's ultrasound with the patient. The patient has the following ultrasounds already scheduled: 1) BPP once weekly at your clinic. 2) BPP once weekly at [facility]. 3) echo on 08/28/23 with Pediatric Cardiology. 4) growth assessment at [facility] in 4 weeks. Given the polyhydramnios [...] Comp Follow Up ----- Pat. Name: JACK WILDER Study Date: 08/21/2023 11:58am Pat. NO: [id number] Referring MD: HOMAR MEDRANO Site: Termite Inspector: Yamila Dutton RDMS : 1985 Age: 37 [...] EFW (lb,oz) 6 lb 4oz EFW by Hadlock(AKD-ER-AC-FL) Head / Face / Neck Biometry: Park Maintainer 4.4mm ANATOMY ----- The following structures appear normal: Head / Neck Cranium. Head size. Head shape.Lateral ventricles. Midline falx. Cavum septi pellucidi. Cerebellum.Cisterna magna. Thalami. Face Profile. Heart / Thorax 4-chamber view. Diaphragm. Abdomen Stomach. Kidneys. Bladder. Spine Thoracic spine. Lumbar spine.Sacral spine. The following structures were documented previously: Face Lips. Nose. Heart / Thorax RVOT view. LVOT view. 1-bvaewn-rxaowzppmjc. Spine Cervical spine. sex: male. MATERNAL STRUCTURES ----- Cervix Suboptimal Right Ovary Not examined Left Ovary Not examined RECOMMENDATION ----- We discussed the findings on today's ultrasound with the patient. The patient has the following ultrasounds already scheduled: 1) BPP once weekly at your clinic. 2) BPP once weekly at [facility]. 3) echo on 08/28/23 with Pediatric Cardiology. 4) growth assessment at [facility] in 4 weeks. Given the polyhydramnios [...] Patel MD IMG MFM US ORDERABLE S * MFM BPP Single (08/14/2023 3:54 PM CDT) Anatomical Region Laterality Modality Ultrasound 08/14/2023 3:35 PM CDT Impressions 08/14/2023 4:06 PM CDT IMPRESSION ----- 1) Mild polyhydramnios. 2) BPP is reassuring. Narrative 08/14/2023 4:06 PM CDT ?BPP ----- Pat. Name: JACK WILDER ? Study Date: ??08/14/2023 3:35pm Pat. NO: ??[id number] ?Referring ??: HOMAR MEDRANO Site: ? Termite Inspector: Gemma Pinzon RDMS : ??1985 ?Age: ?? [...] has not contacted your office or her emergency department coordinator. Currently we are not reviewing her blood [...] - 08/14/2023 BPP ----- Pat. Name: JACK WILDER Study Date: 08/14/2023 3:35pm Pat. NO: [id number] Referring MD: HOMAR MEDRANO Site: Termite Inspector: Gemma Pinzon RDMS : 1985 Age: 37 [...] and has notcontacted your office or her emergency department coordinator. Currently we are not reviewing her blood [...] 2) BPP is reassuring. Cristiane Patel MD [facility] US ORDERABLE S [facility] BPP Single (07/30/2023 3:46 PM CDT) Anatomical [...] PM CDT ?BPP ----- Pat. Name: JACK WILDER ? Study Date: ??07/30/2023 3:27pm Pat. NO: ??[id number] ?Referring ??MD: HOMAR MEDRANO Site: ??[place] ? Termite Inspector: Lashonda Barlow RDMS : ??1985 ?Age: ?? [...] with MFM and once with PCP in [place]. Recommend delivery for GDM A2 and pregestational: ? Well controlled: [id number]-[id number] ? Poorly controlled: 28m2q-46d3x ? Failed in-hospital attempt at control: 99g4d-41s8f Thank you for the opportunity to participate in the care of this patient. If you have questions regarding today's evaluation or if we can be of further service, please contact the Maternal- Medicine Center. anomalies may be present but not detected Procedure Note Bassem Pathak MD - 07/30/2023 BPP ----- Pat. Name: JACK WILDER Study Date: 07/30/2023 3:27pm Pat. NO: [id number] Referring MD: HOMAR MEDRANO Site: [facility] Termite Inspector: Lashonda Barlow RDMS : 1985 Age: 37 [...] with twice weekly BPP, once here with [facility] and once withPCP in [place]. Recommend delivery for GDM A2 and pregestational: ? Well controlled: 87s6g-60k9h ? Poorly controlled: 81j0u-10h9m ? Failed in-hospital attempt at control: [id number]-80o5t Thank you for the opportunity to participate [...] affecting documented in this encounter Care Teams Agile Scrum Master Relationship Specialty Start Date End Date Tre [facility] [address] [facility] [address] [address] PCP - General revenue stamp clerk 01/15/22 documented as of this encounter
--- OUTSIDE RECORDS SUMMARY | 2023-08-31 15:24 | XMS_ITS | Encounter Summary ---
Author Organization [facility] Address [address] [facility] [place] [address] Care Team Providers Care Insurance Sales Specialist Name Role Phone Tre Ba MD Primary Care Provide r Reason for Visit * Reason Comments Genetic Counseling * Consultation (Routine: Next available opening) - Pending Review Specialty Diagnoses / Procedures Referred By Contac t Referred To Contact Diagnoses related condition, antepartum Ilene Kaplan APRN [facility] [address] [place] [address] Referral ID Status Reason Start Date Expiration Date V isits Requested Visits Authorized [id number] Pending Review 07/03/2023 07/02/2024 1 1 Encounter Details Date Type Department Care Team (Late st Contact Info) Description 07/24/2023 12:45 PM CDT Office Visit [facility] [place] [address] [facility] [address] [place] [address] Cristiane Patel MD [address] [place] [address] Laura Abdi GC [address] [place] [address] Multigravida of advanced maternal age in [...] Abdi, GC - 07/24/2023 12:45 PM CDT [facility] Genetic Counseling Consult Patient: Sheba Wilder Date of : 1985 Date of Service: 07/24/23 Sheba was seen at the [facility] for genetic consultation. Theindication for genetic counseling is advanced maternal age. The patient was unaccompanied to this visit. The session was conducted in Ivorian. IMPRESSION/ PLAN 1. Sheba has not had genetic screening in this but elected to have screening today. 2. During today's [facility] visit, Sheba had a blood draw for expanded non-invasive testing (also called NIPT, NIPS, or cell-free DNA) through [employer] ([employer]). The expanded NIPT screens for trisomy 21, [...] an emaildiscussing the results be sent to [email or web address]. Sheba was informed that results, including sex, will be available in [employer]. 3. Sheba had a level II comprehensive anatomy ultrasound today. Please see the ultrasound report for further details. 4. [facility] recommends weekly BPPs starting next week. [...] in these pregnancies, please refer to the [facility] note for more details. FAMILY HISTORY A three-generation family history was obtained today and is scanned under the Media tab in [employer]. The family history was reported by Sheba. [...] of recurrent loss shecan reach out to [facility] or her OB. Sheba has a [...] wants more information they can contact the [facility] ( ). We [...] individuals (generally male) being most severely affected. [place] screening was reviewed. About [place] Screening The patient does NOT have a [...] of other microdeletion syndromes (expanded NIPT through [employer]). At this time, it is not possible [...] was a pleasure to be involved with Shbea???s care. Ulzb-ac-fdyr time of the meeting was 30 minutes. Laura Abdi MS, [facility] Maternal Medicine Office: [phone] MFM: [phone] [facility] documented in this encounter Plan of Treatment Upcoming Encounters Date Type Department Care Team (Late st Contact Info) Description 09/02/2023 11:45 AM CDT Appointment [facility] Maternal Medicine [place] [address] [place] [phone] Luz Elena Betts MD [address] [place], [place] [address] 09/02/2023 12:15 PM CDT Office Visit [facility] [place] [address] [place] [phone] Luz Elena Betts MD [address] [place], [place] [address] 09/08/2023 11:45 AM CDT Appointment [facility] [place] [address] [place] [phone] Bassem Pathak MD [address] [place], [place] [address] Mitch Jernigan MD [address] [place], [place] [address] 09/08/2023 12:15 PM CDT Office Visit [facility] [place] [address] [place] [phone] Bassem Pathak MD [address] [place], [place] [address] Mitch Jernigan MD [address] [facility] [address] [place] [address] documented as of this encounter Results * [employer] [facility] Non-Invasive Screening???Prequel (07/24/2023 2:49 PM CDT) See Scanned Result [facility] NON-INVASIVE SCREENING PREQUEL-Scann ed 08/02/2023 7:16 PM CDT [employer] Blood STRUCTURE OF RIGHT UPPER LIMB / Unknown Venipuncture / Unknown 07/24/2023 2:49 PM CDT 07/24/2023 2:49 PM CDT Laura Abdi LAB - BLOOD ORDERABL ES [employer] [address] [phone] documented in this encounter Visit Diagnoses Diagnosis Multigravida of advanced maternal age in third trimester- Primary related condition, antepartum documented in this encounter Care Teams Insurance Sales Specialist Relationship Specialty Start Date End Date Tre Ba MD [address] [facility] [address] [place], [place] [phone] PCP - General radiology equipment servicer 01/15/22 documented as of this encounter
--- OUTSIDE RECORDS SUMMARY | 2023-08-31 15:24 | XMS_ITS | Encounter Summary ---
Author Organization [place] Address [address] [facility] [place] [address] Care Team Providers Care Doctor Osteopathic Name Role Phone Tre Ba MD Primary Care Provide r Reason for Visit * Reason Comments Ultrasound L2-AMA Encounter Details Date Type Department Care Team ([facility] Contact Info) Description 07/08/2023 PRE VISIT [facility] Maternal Medicine [facility] [address] [place] [address] Melissa Aguiar RN Ultrasound (L2-AMA) [...] Upcoming Encounters Date Type Department Care Team ([facility] Contact Info) Description 09/02/2023 11:45 AM CDT Appointment [facility] Maternal Medicine [facility] [address] [place] [address] Luz Elena Betts MD [address] [facility] [address] [place], [place] [address] 09/02/2023 12:15 PM CDT Office Visit [facility] Maternal Medicine [place] [address] [facility] [address] [place] [address] Luz Elena Betts MD [address] [place] [address] 09/08/2023 11:45 AM CDT Appointment [facility] Maternal Medicine [place] [address] [phone] Bassem Pathak MD [address] [place] [address] Mitch Jernigan MD [address] [place] [address] 09/08/2023 12:15 PM CDT Office Visit [facility] [place] [address] [facility] [address] [place] [phone] Bassem Pathak MD [address] [place], [place] [address] Mitch Jernigan MD [address] [place] [address] documented as of this encounter Visit Diagnoses Not on filedocumented in this encounter Care Teams Doctor Osteopathic Relationship Specialty Start Date End Date Tre Ba MD [facility] [address] PCP - General rigging up worker 01/15/22 documented as of this encounter
--- OUTSIDE RECORDS SUMMARY | 2023-08-31 15:24 | XMS_ITS | Encounter Summary ---
Author Organization [place] Address [address] [facility] [place] [address] Care Team Providers Care Movie Writer Name Role Phone Tre Ba MD Primary Care Provide r Encounter Details Date Type Department Care Team (Late Contact Info) Description 07/03/2023 Medical Correspondence [facility] Mgmt [facility]cs [address] [place] [address] Scan, Non-Provider Social History Tobacco [...] Info) Description 09/02/2023 11:45 AM CDT Appointment [facility] Maternal Medicine [facility] [address] [place] [phone] Luz Elena Betts MD [address] [place] [address] 09/02/2023 12:15 PM CDT Office Visit [facility] Maternal Medicine [facility] [address] [place] [phone] Luz Elena Btets MD [address] [place] [address] 09/08/2023 11:45 AM CDT Appointment [facility] Maternal Medicine [facility] [address] [facility] [address] [place] [phone] Bassem Pathak MD [address] [place], [place] [address] Mitch Jernigan MD [address] [place] [address] 09/08/2023 12:15 PM CDT Office Visit [facility] Medicine [facility] [address] [facility] [address] [place] [phone] Bassem Pathak MD [address] [place], [place] [address] Mitch Jernigan MD [address] [place], [place] [phone] documented as of this encounter Visit Diagnoses Not on filedocumented in this encounter Care Teams Movie Writer Relationship Specialty Start Date End Date Tre Ba MD [facility] TERRY PONCE [address] [address] PCP - General wire coater 01/15/22 documented as of this encounter
--- NOTE | 2023-09-01 07:42 | ONC.NURNOTE ---
Dx: Iron Deficiency Anemia
== END 2023-08-31 08:41 | disposition home or self-care (01) ==
LOC: NFLDREF 15:19
PROVIDERS: Visit Provider Obstetrics & Gynecology
DX: Z34.83 Encounter for supervision of other normal pregnancy, third trimester (principal)
CPT/HCPCS: 82728

== ENCOUNTER 2023-09-04 07:29 | Outpatient (CLI) | payer MEDICAID, SELFPAY ==
--- NOTE | 2023-09-04 07:15 | CRLHL7_ITS ---
For Patients: As a result of the Century Cures Act, medical imaging exams and procedure reports are released immediately into your electronic medical record. You may view this report before your referring provider. If you have questions, please contact your health care provider. INDICATION: Type 2 diabetes mellitus. COMPARISON: OB ultrasound 07/01/2023. TECHNIQUE: Ultrasound OB pelvis biophysical profile. Real time hernandez scale imaging of the fetus was performed without non-stress testing. FINDINGS: Sonographic imaging demonstrates a single living intrauterine gestation. The fetus demonstrates a regular cardiac rate of 129 beats per minute. The fetus has a cephalic orientation. The placenta lies anteriorly. Single deepest pocket measures 7.5 cm (2/2). The fetus was active (2/2). There was normal flexion and extension of the trunk and extremities (2/2). The fetus demonstrated normal breathing movements (2/2). IMPRESSION: Normal biophysical profile score 8 out of 8. Dictated by Denae Younger MD @ 09/05/2023 3:27:25 AM (Electronically Signed)
--- OUTSIDE RECORDS SUMMARY | 2023-09-04 07:32 | XMS_ITS | Encounter Summary ---
Author Organization [place] Address [facility] [place] [address] Care Team Providers Care Tape Controlled Machine Stitcher Name Role Phone Tre Ba MD Primary Care Provide r Bassem Pathak MD Unavailable Reason for Referral * Diagnostic Imaging Ultrasound (Routine) - Pending Review Specialty Diagnoses / Procedures Referred By Temo taylor Referred To Contact Radiology. Diagnoses Diabetes mellitus, type 2 (H) Polyhydramnios affecting Procedures [facility] US Comprehensive Single F/U Cristiane Patel MD [address] [place] [address] Referral ID Status Reason Start Date Expiration Date V isits Requested Visits Authorized [id number] Pending Review 07/24/2023 07/23/2024 1 1 Reason for Visit * Diagnostic Imaging Ultrasound (Routine) - Pending Review Specialty Diagnoses / Procedures Referred By Temo taylor Referred To Contact Radiology. Diagnoses Diabetes mellitus, type 2 (H) Polyhydramnios affecting Procedures [facility] US Comprehensive Single F/U Cristiane Patel MD [address] [place] [address] Referral ID Status Reason Start Date Expiration Date V isits Requested Visits Authorized [id number] Pending Review 07/24/2023 07/23/2024 1 1 Encounter Details Date Type Department Care Team (Latest Contact Info) Description 08/21/2023 11:45 AM CDT - 08/21/2023 11:59 PM CDT Hospital Encounter [facility] [address] [facility] [address] [place] [phone] Cristiane Patel MD [address] [place] [address] Mitch Jernigan MD [address] [place] [address] Polyhydramnios affecting Discharge Disposition: Home [...] Care Team (Late st Contact Info) Description 09/08/2023 11:45 AM CDT Appointment [facility] Maternal Medicine [facility] [address] [facility] [address] [place] [phone] Bassem Pathak MD [address] [place] [address] Mitch Jernigan MD [address] [place] [address] 09/08/2023 12:15 PM CDT Office Visit [facility] Maternal Medicine [place] [address] [place] [phone] Bassem Pathak MD [address] [place] [address] Mitch Jernigan MD [address] [place] [address] 09/15/2023 1:30 PM CDT Appointment [facility] Medicine [place] [address] [facility] [address] [place] [phone] Mitch Jernigan MD [address] [place] [address] 09/15/2023 2:00 PM CDT Office Visit [facility] Maternal Medicine [place] [address] [facility] [address] [place] [phone] Mitch Jernigan MD [address] [place] [address] 09/22/2023 11:45 AM CDT Appointment [facility] Medicine [place] [address] [place] [phone] Luz Elena Betts MD [address] [place] [address] 09/22/2023 12:15 PM CDT Office Visit [facility] Medicine [place] [address] [place] [phone] Luz Elena Betts MD [address] [place] [address] 09/29/2023 11:45 AM CDT Appointment [facility] Maternal Medicine [facility] [address] [place] [address] Luz Elena Betts MD [address] [place] [address] 09/29/2023 12:15 PM CDT Office Visit [facility] Maternal Medicine [place] [address] [place] [phone] Luz Elena Betts MD [address] [place] [address] 10/06/2023 11:45 AM CDT Appointment [facility] Maternal Medicine [facility] [address] [place] [address] Luz Elena Betts MD [address] [place] [address] 10/06/2023 12:15 PM CDT Office Visit [facility] Medicine [facility] [address] [place] [phone] Luz Elena Betts MD [address] [place] [address] documented as of this encounter Procedures Procedure Name Priority Date/Time Associated Diagnosis Comments [facility] US COMPREHENSIVE SINGLE F/U Routine 08/21/2023 12:39 PM CDT Polyhydramnios affecting documented in this encounter Results * [facility] US Comprehensive Single F/U (08/21/2023 12:39 [...] ? Study Date: ??08/21/2023 11:58am Pat. NO: ??[id number] ?Referring ??: HOMAR MEDRANO Site: ? Tar Dist[employer] Supervisor: Yamila Dutton RDMS : ??1985 ?Age: ?? [...] lb 4 ?oz EFW by ? Hadlock ([id number]) Head / Face / Neck Biometry: Quality Assurance Calibrator ?4.4 ? mm ANATOMY ----- The following [...] Heart / Thorax ?RVOT view. LVOT view. 1-vwaxpl-czsrnum view. Spine ?Cervical spine. sex: male. MATERNAL STRUCTURES ----- Cervix ?Suboptimal Right Ovary ?Not examined Left Ovary ?Not examined RECOMMENDATION ----- We discussed the findings on today's ultrasound with the patient. The patient has the following ultrasounds already scheduled: 1) BPP once weekly at your clinic. 2) BPP once weekly at [facility]. 3) echo on 08/28/23 with Pediatric Cardiology. 4) growth assessment at [facility] in 4 weeks. Given the polyhydramnios [...] WILDER Study Date: 08/21/2023 11:58am Pat. NO: [id number] Referring MD: HOMAR MEDRANO Site: [facility] [employer] Supervisor: Yamila Dutton RDMS : 1985 Age: 37 [...] dating based on the LMP, selected on 432w + 6 d 10/10/2023 GENERAL EVALUATION ----- [...] EFW (lb,oz) 6 lb 4oz EFW by Hadlock([id number]) Head / Face / Neck Biometry: Quality Assurance Calibrator 4.4mm ANATOMY ----- The following structures appear normal: Head / Neck Cranium. Head size. Head shape.Lateral ventricles. Midline falx. Cavum septi pellucidi. Cerebellum.Cisterna magna. Thalami. Face Profile. Heart / Thorax 4-chamber view. Diaphragm. Abdomen Stomach. Kidneys. Bladder. Spine Thoracic spine. Lumbar spine.Sacral spine. The following structures were documented previously: Face Lips. Nose. Heart / Thorax RVOT view. LVOT view. 6-mwvbcc-wyjkvftgoza. Spine Cervical spine. sex: male. MATERNAL STRUCTURES ----- Cervix Suboptimal Right Ovary Not examined Left Ovary Not examined RECOMMENDATION ----- We discussed the findings on today's ultrasound with the patient. The patient has the following ultrasounds already scheduled: 1) BPP once weekly at your clinic. 2) BPP once weekly at [facility]. 3) echo on 08/28/23 with Pediatric Cardiology. 4) growth assessment at [facility] in 4 weeks. Given the polyhydramnios [...] affecting documented in this encounter Care Teams Tape Controlled Machine Stitcher Relationship Specialty Start Date End Date Tre Ba MD [facility] [place], [place] [id number] PCP - General fitter's assistant 01/15/22 Bassem Pathak MD [address] [place], [place] [address] Assigned OBGYN Provider 08/16/23 documented as of this encounter
--- OUTSIDE RECORDS SUMMARY | 2023-09-04 07:32 | XMS_ITS | Encounter Summary ---
Author Organization [place] Address [facility] [place] [address] Care Team Providers Care Computer Numerical Control Operator Name Role Phone Tre Ba MD Primary Care Provide r Bassem Pathak MD Unavailable [phone] Reason for Referral * Diagnostic Imaging Ultrasound (Routine) - Pending Review Specialty Diagnoses / Procedures Referred By Contac t Referred To Contact Radiology. Diagnoses Pre-existing type 2 diabetes mellitus during in third trimester Procedures [facility] Luz Elena Qureshi MD [address] [place] [address] Referral ID Status Reason Start Date Expiration Date V isits Requested Visits Authorized [id number] Pending Review 09/02/2023 09/01/2024 1 1 * Diagnostic Imaging Ultrasound (Routine) - Pending Review Specialty Diagnoses / Procedures Referred By Contac t Referred To Contact Radiology. Diagnoses Pre-existing type 2 diabetes mellitus during in third trimester Procedures Luz Elena Steiner MD [address] [place] [address] Referral ID Status Reason Start Date Expiration Date V isits Requested Visits Authorized [id number] Pending Review 09/02/2023 09/01/2024 1 1 * Diagnostic Imaging Ultrasound (Routine) - Pending Review Specialty Diagnoses / Procedures Referred By Contac t Referred To Contact Radiology. Diagnoses Pre-existing type 2 diabetes mellitus during in third trimester Procedures [facility] BPP Single Luz Elena Betts MD [address] [place] [address] Referral ID Status Reason Start Date Expiration Date V isits Requested Visits Authorized [id number] Pending Review 09/02/2023 09/01/2024 1 1 * Diagnostic Imaging Ultrasound (Routine) - Pending Review Specialty Diagnoses / Procedures Referred By Contac t Referred To Contact Radiology. Diagnoses Pre-existing type 2 diabetes mellitus during in third trimester Procedures [facility] US Comprehensive Single F/U Luz Elena Betts MD [address] [place] [address] Referral ID Status Reason Start Date Expiration Date V isits Requested Visits Authorized [id number] Pending Review 09/02/2023 09/01/2024 1 1 Reason for Visit * Reason Comments Ultrasound BPP- GDMA2, BMI>30 Encounter Details Date Type Department Care Team (Late st Contact Info) Description 09/02/2023 12:15 PM CDT Office Visit [facility] Maternal Medicine [facility] [place] [address] [place] [phone] Luz Elena Betts MD [address] [place] [address] Pre-existing type 2 diabetes mellitus [...] Notes * Luz Elena Betts MD - 09/02/2023 12:15 PM CDT Please see Imaging tab under Chart Review for details of today's visit. Luz Elena Betts documented in this encounter Nursing Notes * Maria R Cody RN - 09/02/2023 12:15 PM CDT Patient reports positive movement, denies pain, denies contractions/pre- term labor, leaking of fluid, or bleeding. Reports blood sugar values fasting 100-130 and 2 hr post prandial 120s. Patient denies headache, visual changes, nausea/vomiting, epigastric pain related to preeclampsia. Education provided to patient on BPP, POC. SBAR given to MFLambert GRESHAM, see their note in Epic. Maria R Cody RN documented in this encounter Plan of Treatment Upcoming Encounters Date Type Department Care Team (Late st Contact Info) Description 09/08/2023 11:45 AM CDT Appointment [facility] Medicine [facility] [address] [place] [phone] Bassem Pathak MD [address] [place], [place] [address] Mitch Jernigan MD [address] [place], [place] [address] 09/08/2023 12:15 PM CDT Office Visit [facility] Medicine [facility] [address] [place] [phone] Bassem Pathak MD [address] [place], [place] [phone] Mitch Jernigan MD [address] [place] [address] 09/15/2023 1:30 PM CDT Appointment [facility] Maternal Medicine Center [place] [address] [place] [address] Mitch Jernigan MD [address] [place] [address] 09/15/2023 2:00 PM CDT Office Visit [facility] Maternal Medicine [place] [address] [place] [phone] Mitch Jernigan MD [address] [place] [address] 09/22/2023 11:45 AM CDT Appointment [facility] Maternal Medicine [place] [address] [place] [phone] Luz Elena Betts MD [address] [place] [address] 09/22/2023 12:15 PM CDT Office Visit [facility] [place] [address] [place] [phone] Luz Elena Betts MD [address] [place] [address] 09/29/2023 11:45 AM CDT Appointment [facility] Maternal Medicine Center [place] [address] [place] [phone] Luz Elena Betts MD [address] [place] [address] 09/29/2023 12:15 PM CDT Office Visit [facility] Maternal Medicine [facility] [address] [place] [address] Luz Elena Betts MD [address] [place] [address] 10/06/2023 11:45 AM CDT Appointment [facility] Maternal Medicine [facility] [address] [place] [phone] Luz Elena Betts MD [address] [place] [address] 10/06/2023 12:15 PM CDT Office Visit [facility] Maternal Medicine [facility] [address] [place] [phone] Luz Elena Betts MD [address] [place] [address] Scheduled Orders Name Type Priority Associated Diagnoses Orde r Schedule [facility] Comprehensive Single F/U Imaging Routine Pre-existing type 2 diabetes mellitus during in third trimester Expected: 09/15/2023 (Approximate), Expires: 09/01/2024 [facility] BPP Single Imaging Routine Pre-existing type 2 diabetes mellitus during in third trimester Expected: 09/22/2023 (Approximate), Expires: 07/02/2024 [facility] BPP Single Imaging Routine Pre-existing type 2 diabetes mellitus during in third trimester Expected: 09/29/2023 (Approximate), Expires: 07/02/2024 [facility] BPP Single Imaging Routine Pre-existing type 2 diabetes mellitus during in third trimester Expected: 10/06/2023 (Approximate), Expires: 07/02/2024 documented as of this encounter Visit Diagnoses Diagnosis Pre-existing type 2 diabetes mellitus during in third trimester- Primary documented in this encounter Care Teams Computer Numerical Control Operator Relationship Specialty Start Date End Date Tre Ba MD [address] [place] [address] [address] [place] [address] PCP - General cheese cooker 01/15/22 Bassem Pathak MD [address] [address] Assigned OBGYN Provider 08/16/23 documented as of this encounter
--- OUTSIDE RECORDS SUMMARY | 2023-09-04 07:32 | XMS_ITS | Encounter Summary ---
Author Organization [place] Address [address] [facility] [place] [address] Care Team Providers Care Spa Manager Name Role Phone Tre Ba MD Primary Care Provide r Bassem Pathak MD Unavailable Reason for Visit * Reason Comments Ultrasound RL2/BPP- DM2 poor co ntrol Encounter Details Date Type Department Care Team (Late st Contact Info) Description 08/21/2023 12:15 PM CDT Office Visit [facility] Maternal Medicine Center [place] [address] [place] [address] Cristiane Patel MD [address] [place] [address] Mitch Jernigan MD [address] [place] [address] Pre-existing type 2 diabetes mellitus [...] of this encounter Progress Notes * Mitch eJrnigan MD - 08/21/2023 12:15 PM CDT Please see Imaging tab under Chart Review for details of today's US at the [facility] - [facility]. Mitch Jernigan MD Maternal- Medicine documented in this encounter Nursing Notes * Laura Vila RN - 08/21/2023 12:15 PM CDT Pt at [facility] for ultrasound- see detailed report under imaging tab. Pt reports positive movement, denies other concerns at this time. 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 SBAR given to MD. documented in this encounter Plan of Treatment Upcoming Encounters Date Type Department Care Team (Late st Contact Info) Description 09/08/2023 11:45 AM CDT Appointment [facility] Medicine [facility] [address] [place] [address] Bassem Pathak MD [address] [place], [place] [phone] Mitch Jernigan MD [address] [place] [address] 09/08/2023 12:15 PM CDT Office Visit [facility] [address] [facility] [facility] [address] [facility] [address] [place] [phone] Bassem Pathak MD [address] [place] [address] Mitch Jernigan MD [address] [place] [address] 09/15/2023 1:30 PM CDT Appointment [facility] Maternal Medicine [place] [address] [place] [phone] Mitch Jernigan MD [address] [place] [address] 09/15/2023 2:00 PM CDT Office Visit [facility] Maternal Medicine Center [place] [address] [place] [phone] Mitch Jernigan MD [address] [place] [address] 09/22/2023 11:45 AM CDT Appointment [facility] Maternal Medicine [place] [address] [place] [phone] Luz Elena Betts MD [address] [place] [address] 09/22/2023 12:15 PM CDT Office Visit [facility] Maternal Medicine [place] [address] [place] [phone] Luz Elena Betts MD [address] [place] [address] 09/29/2023 11:45 AM CDT Appointment [facility] Maternal Medicine [place] [address] [place] [phone] Luz Elena Betts MD [address] [place] [address] 09/29/2023 12:15 PM CDT Office Visit [facility] Maternal Medicine [facility] [place] [address] [place] [address] Luz Elena Betts MD [address] [place] [address] 10/06/2023 11:45 AM CDT Appointment [facility] Maternal Medicine [facility] [address] [place] [address] Luz Elena Betts MD [address] [place] [address] 10/06/2023 12:15 PM CDT Office Visit [facility] Maternal Medicine [facility] [address] [place] [address] Luz Elena Betts MD [address] [place] [address] documented as of this encounter Visit Diagnoses Diagnosis Pre-existing type 2 diabetes mellitus during in third trimester- Primary Polyhydramnios affecting documented in this encounter Care Teams Spa Manager Relationship Specialty Start Date End Date Tre Ba MD [address] [facility] [address] [place] [address] PCP - General aluminum siding installer 01/15/22 Bassem Pathak MD [address] [place] [address] Assigned OBGYN Provider 08/16/23 documented as of this encounter
--- OUTSIDE RECORDS SUMMARY | 2023-09-04 07:32 | XMS_ITS | Encounter Summary ---
Author Organization [facility] Address [address] [place] [address]. [place] [address] Care Team Providers Care Web Operations Manager Name Role Phone Tre Ba MD Primary Care Provide r Bassem Pathak MD Unavailable [phone] Encounter Details Date Type Department Care Team (Late st Contact Info) Description 08/26/2023 Telephone [facility] [address] [place] [phone] Cheri Peters LPN Social History Tobacco [...] Department Care Team (Late Contact Info) Description 09/08/2023 11:45 AM CDT Appointment [facility] [place] [address] [place] [address] Bassem Pathak MD [address] [place] [address] Mitch Jernigan MD [address] [place] [address] 09/08/2023 12:15 PM CDT Office Visit [facility] [place] [address] [place] [phone] Bassem Pathak MD [address] [place] [address] Mitch Jernigan MD [address] [place] [address] 09/15/2023 1:30 PM CDT Appointment [facility] M[facility] Medicine [place] [address] [place] [phone] Mitch Jernigan MD [address] [place] [address] 09/15/2023 2:00 PM CDT Office Visit [facility] [place] [address] [place] [phone] Mitch Jernigan MD [address] [place] [address] 09/22/2023 11:45 AM CDT Appointment [facility] [place] [address] [place] [phone] Luz Elena Betts MD [address] [place] [address] 09/22/2023 12:15 PM CDT Office Visit [facility] M[facility] [address] [place] [address] Luz Elena Betts MD [address] [place] [address] 09/29/2023 11:45 AM CDT Appointment [facility] [place] [address] [place] [address] Luz Elena Betts MD [address] [place] [address] 09/29/2023 12:15 PM CDT Office Visit [facility] [place] [address] [place] [address] Luz Elena Betts MD [address] [place] [address] 10/06/2023 11:45 AM CDT Appointment [facility] [place] [address] [place] [address] Luz Elena Betts MD [address] [place] [address] 10/06/2023 12:15 PM CDT Office Visit [facility] [place] [address] [place] [address] Luz Elena Betts MD [address] [place] [address] documented as of this encounter Visit Diagnoses Not on filedocumented in this encounter Care Teams Web Operations Manager Relationship Specialty Start Date End Date Tre Ba MD [address] [place] [address] [address] [place] [address] PCP - General oil and gas specialist 01/15/22 Bassem Pathak MD [address] [address] [place], [place] [address] Assigned OBGYN Provider 08/16/23 documented as of this encounter
--- OUTSIDE RECORDS SUMMARY | 2023-09-04 07:32 | XMS_ITS | Encounter Summary ---
Author Organization [facility] Address [facility] [place] [address] Care Team Providers Care Terra Cotta Mold Maker Name Role Phone Tre Ba MD Primary Care Provide r Bassem Pathak MD Unavailable [phone] Reason for Referral * Diagnostic Imaging Ultrasound (Routine) - Pending Review Specialty Diagnoses / Procedures Referred By Temo taylor Referred To Contact Radiology. Diagnoses Pre-existing type 2 diabetes mellitus during in third trimester [facility] [address] [facility] [address] [facility] [address] [place] [address] Referral ID Status Reason Start Date Expiration Date V isits Requested Visits Authorized [id number] Pending Review 07/30/2023 07/29/2024 1 1 Reason for Visit * Diagnostic Imaging Ultrasound (Routine) - Pending Review Specialty Diagnoses / Procedures Referred By Temo taylor Referred To Contact Radiology. Diagnoses Pre-existing type 2 diabetes mellitus during in third trimester Procedures [facility] Bassem Dhillon MD [address] [place] [address] Referral ID Status Reason Start Date Expiration Date V isits Requested Visits Authorized [id number] Pending Review 07/30/2023 07/29/2024 1 1 Encounter Details Date Type Department Care Team (Latest Contact Info) Description 09/02/2023 11:45 AM CDT - 09/02/2023 11:59 PM CDT Hospital Encounter [facility] Maternal Medicine [facility] [address] [facility] [address] [place] [phone] Luz Elena Betts MD [address] [place] [address] Pre-existing type 2 diabetes mellitus [...] Info) Description 09/08/2023 11:45 AM CDT Appointment [facility] Maternal Medicine [place] [address] [facility] [address] [place] [phone] Bassem Pathak MD [address] [place], [place] [address] Mitch Jernigan MD [address] [place], [place] [address] 09/08/2023 12:15 PM CDT Office Visit [facility] Maternal Medicine [place] [address] [place] [address] Bassem Pathak MD [address] [place] [address] Mitch Jernigan MD [address] [place] [address] 09/15/2023 1:30 PM CDT Appointment [facility] M[facility] Medicine [place] [address] [place] [phone] Mitch Jernigan MD [address] [place] [address] 09/15/2023 2:00 PM CDT Office Visit [facility] Maternal Medicine [place] [address] [place] [phone] Mitch Jernigan MD [address] [place] [address] 09/22/2023 11:45 AM CDT Appointment [facility] Maternal Medicine [place] [address] [place] [phone] Luz Elena Betts MD [address] [place] [address] 09/22/2023 12:15 PM CDT Office Visit [facility] Maternal Medicine [place] [address] [place] [phone] LuzE lena Betts MD [address] [place] [address] 09/29/2023 11:45 AM CDT Appointment [facility] Medicine [place] [address] [place] [address] Luz Elena Betts MD [address] [place] [address] 09/29/2023 12:15 PM CDT Office Visit [facility] Medicine [place] [address] [place] [address] Luz Elena Betts MD [address] [place] [address] 10/06/2023 11:45 AM CDT Appointment [facility] Medicine [place] [address] [place] [phone] Luz Elena Betts MD [address] [place] [address] 10/06/2023 12:15 PM CDT Office Visit [facility] Medicine [place] [address] [place] [phone] Luz Elena Betts MD [address] [place] [address] documented as of this encounter Procedures Procedure Name Priority Date/Time Associated Diagnosis Comments [facility] BPP SINGLE Routine 09/02/2023 12:22 PM CDT Pre-existing type 2 diabetes mellitus during in third trimester documented in this encounter Results * [facility] BPP Single (09/02/2023 12:22 PM CDT) Anatomical Region Laterality Modality Ultrasound 09/02/2023 11:5 8 AM CDT Impressions 09/02/2023 4:11 PM CDT IMPRESSION ----- 1) Gonzalez intrauterine at 34w 4d gestational age. 2) The BPP is reassuring. 3) Mild polyhydramnios was again noted. Narrative 09/02/2023 4:11 PM CDT ?BPP ----- Pat. Name: SHEBA WILDER ? Study Date: ??09/02/2023 11:58am Pat. NO: ??[id number] ?Referring ??MD: HOMAR MEDRANO Site: ? [employer] Machine: Lashonda Barlow RDMS : ??1985 ?Age: ?? 37 ----- INDICATION ----- Type 2 diabetes - on insulin Advanced maternal age Mild polyhydramnios METHOD ----- Transabdominal ultrasound examination. View: Sufficient ----- Gonzalez . Number of fetuses: 1 DATING ----- ? Date ?Details ?Gest. age ?BROOKE LMP ?01/03/2023 ?34 w + 4 d ? 10/10/2023 Stated BROOKE ? 34 w + 4 d ? 10/10/2023 Previous U/S ?03/03/2023 ?GA, GA 8 w + 3 d ? 34 w + 4 d ? 10/10/2023 Assigned dating ?based on the LMP, selected on 09/02/2023 ? 34 w + 4 d ? 10/10/2023 GENERAL EVALUATION ----- Cardiac activity present. FHR 151 bpm. movements: visualized. Presentation: cephalic Placenta: Anterior Umbilical cord: previously studied AMNIOTIC FLUID ASSESSMENT ----- Amount of AF: Polyhydramnios, Mild MVP 10.7 cm. ALEX 24.3 cm. Q1 10.7 cm, Q2 4.2 cm, Q3 7.3 cm, Q4 2.1 cm BIOPHYSICAL PROFILE ----- 2: breathing movements 2: Gross body movements 2: tone 2: Amniotic fluid volume 8/8 Biophysical profile score Interpretation: normal RECOMMENDATION ----- We discussed the findings on today's ultrasound with the patient. Continue surveillance with twice weekly BPP, alternating between [facility] and [facility]. Return to primary provider for continued care. Thank-you for the opportunity to participate in the care of this patient. If you have questions regarding today's evaluation or if we can be of further service, please contact the [facility]aternal[facility] Center. anomalies may be present but not detected Procedure Note Luz Elena Betts MD - 09/02/2023 BPP ----- Pat. Name: SHEBA WILDER Study Date: 09/02/2023 11:58am Pat. NO: [id number] Referring MD: HOMAR MEDRANO Site: [employer] Machine: Lashonda Barlow RDMS : 1985 Age: 37 ----- INDICATION ----- Type 2 diabetes - on insulin Advanced maternal age Mild polyhydramnios METHOD ----- Transabdominal ultrasound examination. View: Sufficient ----- Gonzalez . Number of fetuses: 1 DATING ----- DateDetailsGest. age BROOKE LMP w + 4 d 10/10/2023 Stated EDD34 w + 4 d 10/10/2023 Previous U/S 03/03/2023 GA, GA8 w + 3 d34 w + 4 d 10/10/2023 Assigned dating based on the LMP, selected on w + 4 d 10/10/2023 GENERAL EVALUATION ----- Cardiac activity present. FHR 151 bpm. movements: visualized.Presentation: cephalic Placenta: Anterior Umbilical cord: previously studied AMNIOTIC FLUID ASSESSMENT ----- Amount of AF: Polyhydramnios, Mild MVP 10.7 cm. ALEX 24.3 cm. Q1 10.7 cm, Q2 4.2 cm, Q3 7.3 cm, Q4 2.1 cm BIOPHYSICAL PROFILE ----- 2: breathing movements 2: Gross body movements 2: tone 2: Amniotic fluid volume 8/8 Biophysical profile score Interpretation: normal RECOMMENDATION ----- We discussed the findings on today's ultrasound with the patient. Continue surveillance with twice weekly [facility]. Return to primary provider for continued care. Thank-you for the opportunity to participate in the care of this patient.If you have questions regarding today's evaluation or if we can be offurther service, please contact the [facility]. anomalies may be present but not detected IMPRESSION ----- 1) Gonzalez intrauterine at 34w 4d gestational age. 2) The BPP is reassuring. 3) Mild polyhydramnios was again noted. [facility]sem Pathak MD [facility] documented in this encounter Visit Diagnoses Diagnosis Pre-existing type 2 diabetes mellitus during in third trimester documented in this encounter Care Teams Terra Cotta Mold Maker Relationship Specialty Start Date End Date Tre Ba MD [address] [place] [address] [facility] [address] [place] [address] PCP - General rolls baker 01/15/22 Bassem Pathak MD [address] [address] [place] [address] Assigned OBGYN Provider 08/16/23 documented as of this encounter
--- OUTSIDE RECORDS SUMMARY | 2023-09-04 07:32 | XMS_ITS | Clinical Summary ---
Author Organization [place] Address [facility] [place] [address] Care Team Providers Care Fiberglass Ski Maker Name Role Phone Tre Ba MD Primary Care Provide r Bassem Pathak MD Unavailable [phone] Allergies No known active allergies Medications Medication [...] Encounters Date Type Department Care Team Description 09/02/2023 12:15 PM CDT Office Visit [facility] Maternal Medicine [facility] [address] [place] [phone] Luz Elena Betts MD Pre-existing type 2 diabetes mellitus during in third trimester (Primary Dx) 09/02/2023 11:45 AM CDT - 09/02/2023 11:59 PM CDT Hospital Encounter [facility] Maternal Medicine [facility] [address] [place] [address] Luz Elena Betts MD Pre-existing type 2 diabetes mellitus during in third trimester Discharge Disposition: Home or Self Care 09/02/2023 Travel 08/26/2023 Telephone [facility] Heart Care [address] [place] [address] Cheri Peters LPN 08/25/2023 12:15 PM CDT Office Visit [facility] Maternal Medicine [place] [address] [place] [address] Bassem Pathak MD Yamamura, Yasuko, MD Pre-existing type 2 diabetes mellitus during in third trimester (Primary Dx); Polyhydramnios in third trimester complication, single or unspecified fetus 08/25/2023 11:45 AM CDT - 08/25/2023 11:59 PM CDT Hospital Encounter [facility] Maternal Medicine [place] [address] [place] [address] Bassem Pathak MD Yamamura, Yasuko, MD Pre-existing type 2 diabetes mellitus during in third trimester Discharge Disposition: Home or Self Care 08/25/2023 Travel 08/21/2023 12:15 PM CDT Office Visit [facility] Medicine [place] [address] [place] [address] Cristiane Patel MD Rauk, Mitch Walker MD Pre-existing type 2 diabetes mellitus during in third trimester (Primary Dx); Polyhydramnios affecting 08/21/2023 11:45 AM CDT - 08/21/2023 11:59 PM CDT Hospital Encounter [facility] Medicine [place] [address] [place] [address] Cristiane Patel MD Rauk, Phillip Neil, MD Polyhydramnios affecting Discharge Disposition: Home or Self Care 08/21/2023 Travel 08/14/2023 4:00 PM CDT Office Visit [facility] Maternal Medicine [place] [address] [place] [address] Cristiane Patel MD Rauk, Phillip Neil, MD Pre-existing type 2 diabetes mellitus during in third trimester (Primary Dx); Polyhydramnios affecting 08/14/2023 3:30 PM CDT - 08/14/2023 11:59 PM CDT Hospital Encounter [facility] Maternal Medicine [facility] [address] [place] [phone] Cristiane Patel MD Rauk, Mitch Walker MD Polyhydramnios affecting Discharge Disposition: Home or Self Care 08/14/2023 Travel 08/03/2023 Telephone [facility] Maternal Medicine [address] [phone] Laura Abdi, GC Results (Low Risk Expanded NIPT) 07/30/2023 4:00 PM CDT Office Visit [facility] Medicine [address] [phone] Bassem Pathak MD Pre-existing type 2 diabetes mellitus during in third trimester (Primary Dx) 07/30/2023 3:25 PM CDT - 07/30/2023 11:59 PM CDT Hospital Encounter [facility] Medicine [address] [phone] Bassem Pathak MD Polyhydramnios affecting Discharge Disposition: Home or Self Care 07/30/2023 Travel 07/29/2023 Telephone [facility] Medicine [facility] [address] [place] [address] Carrie Smith, JD Care (/) 07/24/2023 2:40 PM CDT Lab [facility] [address] [place] [phone] Cristiane Patel MD Multigravida of advanced maternal age in third trimester 07/24/2023 2:00 PM CDT Office Visit [facility] Medicine [facility] [address] [place] [address] Cristiane Patel MD with type 2 diabetes mellitus in third trimester (Primary Dx); Polyhydramnios affecting 07/24/2023 12:50 PM CDT - 07/24/2023 11:59 PM CDT Hospital Encounter [facility] Maternal Medicine Center [place] [address] [place] [address] Cristiane Patel MD related condition, antepartum Discharge Disposition: Home or Self Care 07/24/2023 12:45 PM CDT Office Visit [facility] Maternal Medicine [place] [address] [place] [phone] Cristiane Patel MD Daykin, Emily C, GC Multigravida of advanced maternal age in third trimester (Primary Dx); related condition, antepartum 07/24/2023 Medical Correspondence [facility] [address] [place] [phone] Scan, Non-Provider 07/24/2023 Travel 07/08/2023 PRE VISIT [facility] Medicine [place] [address] [place] [phone] Melissa Aguiar RN Ultrasound (L2-AMA) 07/03/2023 Medical Correspondence [facility] [address] [place] [address] Scan, Non-Provider 07/03/2023 Transcribe Orders [facility] Maternal Medicine [place] [address] [place] [address] Homar Medrano APRN DATER ASSEMBLER related condition, antepartum (Primary Dx) from Last [...] Comments Blood Pressure 112/59 01/20/2022 11:00 PM DOCK WORKER Pulse 80 01/20/2022 11:00 PM DOCK WORKER Temperature 37.1 ??C (98.7 ??F) 01/20/2022 10:[address] Respiratory Rate 16 01/20/2022 11:00 PM DOCK WORKER Oxygen Saturation 100% 01/20/2022 11:30 PM DOCK WORKER Inhaled Oxygen Concentration - - Weight 76.4 kg (168 lb 6.4 oz) 01/20/2022 4:42 P M DOCK WORKER Height 154.9 cm (5' 1) 01/20/2022 4:42 PM DOCK WORKER Body Mass Index 31.82 01/20/2022 4:42 PM DOCK WORKER Plan of Treatment Upcoming Encounters Date Type Department Care Team (Late st Contact Info) Description 09/08/2023 11:45 AM CDT Appointment [facility] M[facility] Medicine [facility] [address] [place] [address] Bassem Pathak MD [address] [place] [phone] Mitch Jernigan MD [address] [place] [phone] 09/08/2023 12:15 PM CDT Office Visit [facility] M[facility] Medicine [facility] [address] [place] [phone] Bassem Pathak MD [address] [place], [place] [address] Mitch Jernigan MD [address] [place] [address] 09/15/2023 1:30 PM CDT Appointment [facility] Maternal Medicine [place] [address] [place] [phone] Mitch Jernigan MD [address] [place] [address] 09/15/2023 2:00 PM CDT Office Visit [facility] Maternal Medicine [place] [address] [place] [phone] Mitch Jernigan MD [address] [place] [address] 09/22/2023 11:45 AM CDT Appointment [facility] Maternal Medicine [place] [address] [place] [phone] Luz Elena Betts MD [address] [place] [address] 09/22/2023 12:15 PM CDT Office Visit [facility] Maternal Medicine [place] [address] [place] [phone] Luz Elena Betts MD [address] [place] [address] 09/29/2023 11:45 AM CDT Appointment [facility] Maternal Medicine [place] [address] [place] [phone] Luz Elena Betts MD [address] [place] [address] 09/29/2023 12:15 PM CDT Office Visit [facility] Maternal Medicine [facility] [address] [place] [address] Luz Elena Betts MD [address] [place] [address] 10/06/2023 11:45 AM CDT Appointment [facility] Maternal Medicine [facility] [address] [place] [address] Luz Elena Betts MD [address] [place], [place] [address] 10/06/2023 12:15 PM CDT Office Visit [facility] Maternal Medicine [facility] [address] [place] [phone] Luz Elena Betts MD [address] [place] [address] Health Maintenance Due Date Last Done Comments ADVANCE CARE PLANNING 1985 ANNUAL REVIEW OF HM ORDERS 1985 GLUCOSE 1985 YEARLY PREVENTIVE VISIT 1985 HIV SCREENING 10/21/2002 HEPATITIS C SCREENING 10/21/2005 HEPATITIS B IMMUNIZATION (1 of 3 - 19+ 3-dose series) 10/21/2006 COVID-19 Vaccine (1 - 2022-2 4 season) 2022 PHQ-2 (once per calendar year) 2023 OBGCT (OB) 06/20/2023 GROUP B STREP SCREENING 09/12/2023 INFLUENZA VACCINE (#1) 2023 3, 04/13/2012 PAP [...] Procedure Name Priority Date/Time Associated Diagnosis Comments [facility] SINGLE Routine 09/02/2023 12:22 PM CDT Pre-existing type 2 diabetes mellitus during in third trimester [facility] SINGLE Routine 08/25/2023 12:05 PM CDT Pre-existing type 2 diabetes mellitus during in third trimester [facility] SINGLE F/U Routine 08/21/2023 12:39 PM CDT Polyhydramnios affecting [facility] SINGLE Routine 08/14/2023 3:54 PM CDT Polyhydramnios affecting [facility] SINGLE Routine 07/30/2023 3:46 PM CDT Polyhydramnios affecting [facility] NON-INVASIVE SCREENING PREQUEL Routine 07/24/2023 2:49 PM CDT Multigravida of advanced maternal age in third trimester [facility] SINGLE Routine 07/24/2023 2:13 PM CDT related condition, antepartum from Last 3 Months Results * [facility] Single (09/02/2023 12:22 PM CDT) Only the most recent of4 resultswithin the time period is included. Anatomical Region Laterality Modality Ultrasound 09/02/2023 11:5 8 AM CDT Impressions 09/02/2023 4:11 PM CDT IMPRESSION ----- 1) Gonzalez intrauterine at 34w 4d gestational age. 2) The BPP is reassuring. 3) Mild polyhydramnios was again noted. Narrative 09/02/2023 4:11 PM CDT ?BPP ----- Pat. Name: JACK EDWARDS ? Study Date: ??09/02/2023 11:58am Pat. NO: ??[id number] ?Referring ??MD: HOMAR MEDRANO Site: ? Independent Consultant: Lashonda Barlow RDMS : ??1985 ?Age: ?? [...] surveillance with twice weekly BPP, alternating between [facility] and [facility]. Return to primary provider for continued care. Thank-you for the opportunity to participate in the care of this patient. If you have questions regarding today's evaluation or if we can be of further service, please contact the Maternal- Medicine Center. anomalies may be present but not detected Procedure Note Luz Elena Betts MD - 09/02/2023 BPP ----- Pat. Name: JACK EDWARDS Study Date: 09/02/2023 11:58am Pat. NO: [id number] Referring MD: HOMAR MEDRANO Site: Independent Consultant: Lashonda Barlow RDMS : 1985 Age: 37 [...] Continue surveillance with twice weekly [facility]. Return to primary provider for [...] polyhydramnios was again noted. Bassem Pathak MD [facility] US ORDERABLE S [facility] US Comprehensive Single F/U (08/21/2023 [...] ? Study Date: ??08/21/2023 11:58am Pat. NO: ??[id number] ?Referring ??MD: HOMAR MEDRANO Site: ? Independent Consultant: Yamila Dutton RDMS : ??1985 ?Age: ?? [...] lb 4 ?oz EFW by ? Hadlock ([id number]) Head / Face / Neck Biometry: Acoustics Teacher ?4.4 ? mm ANATOMY ----- The following [...] Heart / Thorax ?RVOT view. LVOT view. 3-ihvgrv-xwmpwhc view. Spine ?Cervical spine. sex: male. MATERNAL STRUCTURES ----- Cervix ?Suboptimal Right Ovary ?Not examined Left Ovary ?Not examined RECOMMENDATION ----- We discussed the findings on today's ultrasound with the patient. The patient has the following ultrasounds already scheduled: 1) BPP once weekly at your clinic. 2) BPP once weekly at [facility]. 3) echo on 08/28/23 with Pediatric Cardiology. 4) growth assessment at [facility] in 4 weeks. Given the polyhydramnios [...] EDWARDS Study Date: 08/21/2023 11:58am Pat. NO: [id number] Referring MD: HOMAR MEDRANO Site: Independent Consultant: Yamila Dutton RDMS : 1985 Age: 37 [...] EFW (lb,oz) 6 lb 4oz EFW by Hadlock([id number]) Head / Face / Neck Biometry: Acoustics Teacher 4.4mm ANATOMY ----- The following structures appear normal: Head / Neck Cranium. Head size. Head shape.Lateral ventricles. Midline falx. Cavum septi pellucidi. Cerebellum.Cisterna magna. Thalami. Face Profile. Heart / Thorax 4-chamber view. Diaphragm. Abdomen Stomach. Kidneys. Bladder. Spine Thoracic spine. Lumbar spine.Sacral spine. The following structures were documented previously: Face Lips. Nose. Heart / Thorax RVOT view. LVOT view. 9-lyewks-lnouesotdob. Spine Cervical spine. sex: male. MATERNAL STRUCTURES ----- Cervix Suboptimal Right Ovary Not examined Left Ovary Not examined RECOMMENDATION ----- We discussed the findings on today's ultrasound with the patient. The patient has the following ultrasounds already scheduled: 1) BPP once weekly at your clinic. 2) BPP once weekly at [facility]. 3) echo on 08/28/23 with Pediatric Cardiology. 4) growth assessment at [facility] in 4 weeks. Given the polyhydramnios [...] 5. BPP is reassuring. Cristiane Patel MD [facility] US ORDERABLE S * [employer] Non-Invasive Screening???Prequel (07/24/2023 2:49 PM CDT) See Scanned Result [employer] NON-INVASIVE SCREENING PREQUEL-Scann ed 08/02/2023 7:16 PM CDT [employer] Blood STRUCTURE OF RIGHT UPPER LIMB / Unknown Venipuncture / Unknown 07/24/2023 2:49 PM CDT 07/24/2023 2:49 PM CDT Laura Abdi LAB - BLOOD ORDERABL ES [employer] [address] [place] [address], [facility] [phone] * [facility] US Comprehensive Single (07/24/2023 2:13 PM [...] ? Study Date: ??07/24/2023 1:32pm Pat. NO: ??[id number] ?Referring ??MD: HOMAR MEDRANO Site: ??[facility] ? Independent Consultant: Sujatha Joyce RDMS : ??1985 ?Age: [...] ? 3 lb 10 ?oz EFW by ?Josh ([id number]) Head / Face / Neck Biometry: Acoustics Teacher ? 3.6 ? mm CM ?5.7 ? [...] cava. Inferior vena cava. 3-vessel ? view. 7-pvahhh-nvkkuxn view. Cardiac position. Cardiac size. Cardiac rhythm. [...] are between 220-240. She is following a certified lactation educator and has met with a wagon winder. No one has started her on insulin [...] medical record, and communicating with other health gericare aide and/or care coordination. Please see note for details. Procedure Note Cristiane Patel MD - 07/24/2023 Comprehensive ----- Pat. Name: JACK EDWARDS Study Date: 07/24/2023 1:32pm Pat. NO: [id number] Referring MD: HOMAR MEDRANO Site: [facility] Independent Consultant: Sujatha Joyce RDMS : 1985 Age: [...] 3 lb 10 oz EFW by Hadlock ([id number]) Head / Face / Neck Biometry: Acoustics Teacher 3.6 mm CM 5.7 mm Nasal bone [...] Superior venacava. Inferior vena cava. 3-vessel view. 5-bejshd-iwexwiv view.Cardiac position. Cardiac size. Cardiac rhythm. Right [...] a diabetic educatorand has met with a wagon winder. No one has started her on insulin [...] electronic medical record, andcommunicating with other health gericare aide and/or carecoordination. Please see note for details. [...] and closed. 6. The BPP was 88. Homar Medrano APRN DATER ASSEMBLER IMG M US ORDERABLES from Last 3 Months Care Teams Fiberglass Ski Maker Relationship Specialty Start Date End Date Tre Ba MD [facility] [place] [address] PCP - General velvet cutter 01/15/22 Bassem Pathak MD [address] [place], [place] [address] Assigned OBGYN Provider 08/16/23
--- OUTSIDE RECORDS SUMMARY | 2023-09-04 07:32 | XMS_ITS | Encounter Summary ---
Author Organization [place] Address [address] [place] [address] Care Team Providers Care Sash Maker Name Role Phone Tre Ba MD Primary Care Provide r Reason for Visit * Reason Comments Ultrasound BPP-uncontrolled Typ e 2 DM Encounter Details Date Type Department Care Team (Late st Contact Info) Description 08/14/2023 4:00 PM CDT Office Visit [facility] Maternal Medicine [facility] [place] [address] [place] [address] Cristiane Patel MD [address] [place] [address] Mitch Jernigan MD [address] [place] [address] Pre-existing type 2 diabetes mellitus [...] of this encounter Progress Notes * Mitch Jernigna MD - 08/14/2023 4:00 PM CDT Please see Imaging tab under Chart Review for details of today's US at the [facility]. Mitch Jernigan MD Maternal- Medicine documented [...] message for educator at [facility] in [place] where patient states she gets her care. Also called to primary OB clinic([facility]) at 1555 and spokewith JD Mtz. Discussed [...] was placed again to [facility] in [place]. Spoke with evening anchor Angelica. Patient confirmed with Angelica that she has her meal time insulin at home but is in need of her long acting insulin and has not been taking for one week as she was unable to get it at the pharmacy the day it was prescribed and was then out of town.Angelica sent in new prescription to [facility] in [place] per patient request. Plan made with patient to get insulin tonight and if unable to obtain at the pharmacy she will call the Endocrinology clinic to reach the agricultural extension specialist provider to assist her in getting her insulin. Patient agreeable to plan and verbalizes understanding of the importance of managing her blood glucose levels. Angelica requested patient call in on Thursday to report glucose levels with a evening anchor. All patient questions answered. SBAR was done with Dr. Jernigan. documented in this encounter Plan of Treatment Upcoming Encounters Date Type Department Care Team (Late st Contact Info) Description 09/08/2023 11:45 AM CDT Appointment [facility] Maternal Medicine [place] [address] [place] [phone] Bassem Pathak MD [address] [place], [place] [address] [phone] Mitch Jernigan MD [address] [place], [place] [address] 09/08/2023 12:15 PM CDT Office Visit [facility] Medicine [place] [address] [place] [phone] Bassem Pathak MD [address] [place], [place] [address] [phone] Mitch Jernigan MD [address] [place], [place] [phone] 09/15/2023 1:[address] [facility] Medicine [place] [address] [place] [phone] Mitch Jernigan MD [address] [place], [place] [phone] 09/15/2023 2:00 PM CDT Office Visit [facility] Medicine [place] [address] [place] [phone] Mitch Jernigan MD [address] [place], [place] [id number] 09/22/2023 11:45 AM CDT Appointment [facility] Maternal Medicine [place] [address] [place] [address] Luz Elena Betts MD [address] [place] [address] 09/22/2023 12:15 PM CDT Office Visit [facility] Maternal Medicine [place] [address] [place] [phone] Luz Elena Betts MD [address] [place] [address] 09/29/2023 11:45 AM CDT Appointment [facility] Maternal Medicine [place] [address] [place] [phone] Luz Elena Betts MD [address] [place] [address] 09/29/2023 12:15 PM CDT Office Visit [facility] Maternal Medicine [place] [address] [place] [phone] Luz Elena Betts MD [address] [place] [address] 10/06/2023 11:45 AM CDT Appointment [facility] Maternal Medicine [place] [address] [place] [phone] Luz Elena Betts MD [address] [place] [address] 10/06/2023 12:15 PM CDT Office Visit [facility] M[facility] Medicine [facility] [place] [address] [place] [phone] Luz Elena Betts MD [address] [place] [address] [address] [place], [place] [address] documented as of this encounter Visit Diagnoses Diagnosis Pre-existing type 2 diabetes mellitus during in third trimester- Primary Polyhydramnios affecting documented in this encounter Care Teams Sash Maker Relationship Specialty Start Date End Date Tre Ba MD [address] [facility] [address] [place], [place] [id number] PCP - General blow mold operator 01/15/22 documented as of this encounter
--- OUTSIDE RECORDS SUMMARY | 2023-09-04 07:32 | XMS_ITS | Encounter Summary ---
Author Organization [place] Address [address] [place] [address] Care Team Providers Care Thermal Surfacing Machine Operator Name Role Phone Tre Ba MD Primary Care Provide r Bassem Pathak MD Unavailable Reason for Visit * Reason Comments Ultrasound BPP- T2DM on insulin , mild poly Encounter Details Date Type Department Care Team (Late st Contact Info) Description 08/25/2023 12:15 PM CDT Office Visit [facility] [place] [address] [place] [address] Bassem Pathak MD [address] [place] [address] Luz Elena Betts MD [address] [place] [address] Pre-existing type 2 diabetes mellitus [...] CDT Appointment [facility] Maternal Medicine [facility] [address] [place] [phone] Bassem Pathak MD [address] [place] [address] [phone] Mitch Jernigan MD [address] [place] [address] [phone] 09/08/2023 12:15 PM CDT Office Visit [facility] Maternal Medicine [facility] [address] [place] [phone] Bassem Pathak MD [address] [place], [place] [address] Mitch Jernigan MD [address] [place] [address] 09/15/2023 1:30 PM CDT Appointment [facility] Maternal Medicine [place] [address] [place] [phone] Mitch Jernigan MD [address] [place] [address] 09/15/2023 2:00 PM CDT Office Visit [facility] Maternal Medicine [place] [address] [place] [phone] Mitch Jernigan MD [address] [place] [address] 09/22/2023 11:45 AM CDT Appointment [facility] Maternal Medicine [place] [address] [place] [phone] Luz Elena Betts MD [address] [place] [address] 09/22/2023 12:15 PM CDT Office Visit [facility] M[facility] Medicine [place] [address] [place] [phone] Luz Elena Betts MD [address] [place] [address] 09/29/2023 11:45 AM CDT Appointment [facility] Maternal Medicine [place] [address] [place] [phone] Luz Elena Betts MD [address] [place] [address] 09/29/2023 12:15 PM CDT Office Visit [facility] Medicine [facility] [address] [place] [phone] Luz Elena Betts MD [address] [place] [address] 10/06/2023 11:45 AM CDT Appointment [facility] Maternal Medicine [facility] [address] [place] [address] Luz Elena Betts MD [address] [place] [address] 10/06/2023 12:15 PM CDT Office Visit [facility] Medicine [facility] [address] [place] [phone] Luz Elena Betts MD [address] [place] [address] documented as of this encounter Visit Diagnoses Diagnosis Pre-existing type 2 diabetes mellitus during in third trimester- Primary Polyhydramnios in third trimester complication, single or unspecified fetus documented in this encounter Care Teams Thermal Surfacing Machine Operator Relationship Specialty Start Date End Date Tre Ba MD [address] [place] [id number] PCP - General extractor operator 01/15/22 Bassem Pathak MD [address] [place] [address] Assigned OBGYN Provider 08/16/23 documented as of this encounter
--- OUTSIDE RECORDS SUMMARY | 2023-09-04 07:32 | XMS_ITS | Encounter Summary ---
Author Organization [place] Address [address] [facility] [place] [address] Care Team Providers Care Fleet Driver Name Role Phone Tre Ba MD Primary [...] Info) Description 09/08/2023 11:45 AM CDT Appointment [facility] Maternal Medicine [facility] [address] [place] [address] Bassem Pathak MD [address] [place], [place] [phone] Mitch Jernigan MD [address] [place], [place] [phone] 09/08/2023 12:15 PM CDT Office Visit [facility] Maternal Medicine [facility] [address] [place] [address] Bassem Pathak MD [address] [place] [address] Mitch Jernigan MD [address] [place] [address] 09/15/2023 1:30 PM CDT Appointment [facility] Maternal Medicine [place] [address] [place] [phone] Mitch Jernigan MD [address] [place] [address] 09/15/2023 2:00 PM CDT Office Visit [facility] Maternal Medicine [place] [address] [place] [phone] Mitch Jernigan MD [address] [place] [address] 09/22/2023 11:45 AM CDT Appointment [facility] Maternal Medicine [place] [address] [place] [phone] Luz Elena Betts MD [address] [place] [address] 09/22/2023 12:15 PM CDT Office Visit [facility] Maternal Medicine [place] [address] [place] [phone] Luz Elena Betts MD [address] [place] [address] 09/29/2023 11:45 AM CDT Appointment [facility] Maternal Medicine [place] [address] [place] [phone] Luz Elena Betts MD [address] [place] [address] 09/29/2023 12:15 PM CDT Office Visit [facility] Medicine [facility] [address] [facility] [address] [place] [address] Luz Elena Betts MD [address] [place] [address] 10/06/2023 11:45 AM CDT Appointment [facility] [place] [address] [place] [phone] Luz Elena Betts MD [address] [place] [address] 10/06/2023 12:15 PM CDT Office Visit [facility] [place] [address] [place] [phone] Luz Elena Betts MD [address] [place] [address] documented as of this encounter Visit Diagnoses Not on filedocumented in this encounter Care Teams Fleet Driver Relationship Specialty Start Date End Date Tre Ba MD [facility] [address] [facility] [address] [place] [address] PCP - General chief underwriter 01/15/22 documented as of this encounter
--- OUTSIDE RECORDS SUMMARY | 2023-09-04 07:32 | XMS_ITS | Referral Summary ---
Author Organization [place] Address [address] [place] [address]. [place] [address] Care Team Providers Care Computer Operations Manager Name Role Phone Tre Ba MD Primary Care Provide r Bassem Pathak MD Unavailable [phone] Encounters Date Type Department Care Team Description 09/02/2023 Travel 09/02/2023 12:15 PM CDT Office Visit [facility] Maternal Medicine [facility] [address] [facility] [address] [place] [phone] Luz Elena Betts MD Pre-existing type 2 diabetes mellitus during in third trimester (Primary Dx) 09/02/2023 11:45 AM CDT - 09/02/2023 11:59 PM CDT Hospital Encounter [facility] Maternal Medicine [facility] [address] [place] [phone] Luz Elena Betts MD Pre-existing type 2 diabetes mellitus during in third trimester Discharge Disposition: Home or Self Care 08/26/2023 Telephone [facility] [address] [place] [phone] Cheri Peters LPN 08/25/2023 Travel 08/25/2023 12:15 PM CDT Office Visit [facility] Maternal Medicine [facility] [address] [place] [phone] Bassem Pathak MD Yamamura, Yasuko, MD Pre-existing type 2 diabetes mellitus during in third trimester (Primary Dx); Polyhydramnios in third trimester complication, single or unspecified fetus 08/25/2023 11:45 AM CDT - 08/25/2023 11:59 PM CDT Hospital Encounter [facility] Medicine [place] [address] [place] [phone] Bassem Pathak MD Yamamura, Yasuko, MD Pre-existing type 2 diabetes mellitus during in third trimester Discharge Disposition: Home or Self Care 08/21/2023 Travel 08/21/2023 12:15 PM CDT Office Visit [facility] Maternal Medicine [place] [address] [place] [phone] Cristiane Patel MD Rauk, Mitch Walker MD Pre-existing type 2 diabetes mellitus during in third trimester (Primary Dx); Polyhydramnios affecting 08/21/2023 11:45 AM CDT - 08/21/2023 11:59 PM CDT Hospital Encounter [facility] Medicine [place] [address] [place] [phone] Cristiane Patel MD Rauk, Mitch Walker MD Polyhydramnios affecting Discharge Disposition: Home or Self Care 08/14/2023 Travel 08/14/2023 4:00 PM CDT Office Visit [facility] Medicine [place] [address] [place] [phone] Cristiane Patel MD Rauk, Mitch Walker MD Pre-existing type 2 diabetes mellitus during in third trimester (Primary Dx); Polyhydramnios affecting 08/14/2023 3:30 PM CDT - 08/14/2023 11:59 PM CDT Hospital Encounter [facility] Medicine [place] [address] [place] [phone] Cristiane Patel MD Rauk, Phillip Neil, MD Polyhydramnios affecting Discharge Disposition: Home or Self Care 08/03/2023 Telephone [facility] [address] [place] [phone] Laura Abdi, COCNEPCION Results (Low Risk Expanded NIPT) 07/30/2023 Travel 07/30/2023 4:00 PM CDT Office Visit [facility] [address] [place] [phone] Bassem Pathak MD Pre-existing type 2 diabetes mellitus during in third trimester (Primary Dx) 07/30/2023 3:25 PM CDT - 07/30/2023 11:59 PM CDT Hospital Encounter [facility] Maternal Medicine [place] [address] [place] [phone] Bassem Pathak MD Polyhydramnios affecting Discharge Disposition: Home or Self Care 07/29/2023 Telephone [facility] Maternal Medicine [place] [address] [place] [address] Carrie Smith, JD Care (/) 07/24/2023 Medical Correspondence [facility] [address] [place] [address] Scan, Non-Provider 07/24/2023 2:40 PM CDT Lab [facility] [address] [place] [address] Cristiane Patel MD Multigravida of advanced maternal age in third trimester 07/24/2023 Travel 07/24/2023 2:00 PM CDT Office Visit [facility] Medicine [facility] [address] [facility] [address] [place] [address] Cristiane Patel MD with type 2 diabetes mellitus in third trimester (Primary Dx); Polyhydramnios affecting 07/24/2023 12:50 PM CDT - 07/24/2023 11:59 PM CDT Hospital Encounter [facility] Medicine [facility] [address] [facility] [address] [place] [phone] Cristiane Patel MD related condition, antepartum Discharge Disposition: Home or Self Care 07/24/2023 12:45 PM CDT Office Visit [facility] Medicine [place] [address] [place] [address] Cristiane Patel MD Daykin, Emily C, Multigravida of advanced maternal age in third trimester (Primary Dx); related condition, antepartum 07/08/[address] [facility] Medicine [place] [address] [facility] [address] [place] [phone] Melissa Aguiar RN Ultrasound ([id number]) 07/03/2023 Medical Correspondence [facility] [address] [place] [address] Scan, Non-Provider 07/03/[address] [facility] Medicine [place] [address] [place] [phone] Homar Medrano, CLEARING SUPERVISOR DIGITAL MEDIA BUYER related condition, antepartum (Primary Dx) from Last [...] Comments Blood Pressure 112/59 01/20/2022 11:00 PM CATH LAB TECH Pulse 80 01/20/2022 11:00 PM CATH LAB TECH Temperature 37.1 ??C (98.7 ??F) 01/20/2022 10:[address] Respiratory Rate 16 01/20/2022 11:00 PM CATH LAB TECH Oxygen Saturation 100% 01/20/2022 11:30 PM CATH LAB TECH Inhaled Oxygen Concentration - - Weight 76.4 kg (168 lb 6.4 oz) 01/20/2022 4:42 P M CATH LAB TECH Height 154.9 cm (5' 1) 01/20/2022 4:42 PM CATH LAB TECH Body Mass Index 31.82 01/20/2022 4:42 PM CATH LAB TECH Plan of Treatment Upcoming Encounters Date Type Department Care Team (Late st Contact Info) Description 09/08/2023 11:45 AM CDT Appointment [facility] Maternal Medicine [facility] [address] [place] [address] Bassem Pathak MD [address] [place] [phone] Mitch Jernigan MD [address] [place] [address] [phone] 09/08/2023 12:15 PM CDT Office Visit [facility] Maternal Medicine [facility] [address] [facility] [facility] [address] [place] [phone] Bassem Pathak MD [address] [place], [place] [address] Mitch Jernigan MD [address] [place] [address] 09/15/2023 1:30 PM CDT Appointment [facility] Maternal Medicine [place] [address] [place] [phone] Mitch Jernigan MD [address] [place] [address] 09/15/2023 2:00 PM CDT Office Visit [facility] Maternal Medicine [place] [address] [place] [phone] Mitch Jernigan MD [address] [place] [address] 09/22/2023 11:45 AM CDT Appointment [facility] Maternal Medicine [place] [address] [place] [phone] Luz Elena Betts MD [address] [place] [address] 09/22/2023 12:15 PM CDT Office Visit [facility] Maternal Medicine [place] [address] [place] [phone] Luz Elena Betts MD [address] [place] [address] 09/29/2023 11:45 AM CDT Appointment [facility] Maternal Medicine [place] [address] [place] [phone] Luz Elena Betts MD [address] [place] [address] 09/29/2023 12:15 PM CDT Office Visit [facility] [place] [address] [place] [address] Luz Elena Betts MD [address] [place] [address] 10/06/2023 11:45 AM CDT Appointment [facility] Maternal Medicine [facility] [address] [place] [phone] Luz Elena Betts MD [address] [place] [address] 10/06/2023 12:15 PM CDT Office Visit [facility] Maternal Medicine [facility] [address] [place] [phone] Luz Elena Betts MD [address] [place] [address] Procedures Procedure Name Priority Date/Time Associated Diagnosis Comments [facility] SINGLE Routine 09/02/2023 12:22 PM CDT Pre-existing type 2 diabetes mellitus during in third trimester [facility] SINGLE Routine 08/25/2023 12:05 PM CDT Pre-existing type 2 diabetes mellitus during in third trimester [facility] SINGLE F/U Routine 08/21/2023 12:39 PM CDT Polyhydramnios affecting [facility] SINGLE Routine 08/14/2023 3:54 PM CDT Polyhydramnios affecting [facility] SINGLE Routine 07/30/2023 3:46 PM CDT Polyhydramnios affecting [facility] NON-INVASIVE SCREENING PREQUEL Routine 07/24/2023 2:49 PM CDT Multigravida of advanced maternal age in third trimester [facility] US COMPREHENSIVE SINGLE Routine 07/24/2023 2:13 PM CDT related condition, antepartum from Last 3 Months Results * [facility] BPP Single (09/02/2023 12:22 PM CDT) Only the [...] ? Study Date: ??09/02/2023 11:58am Pat. NO: ??[id number] ?Referring ??MD: HOMAR MEDRANO Site: ? Oral And Maxillofacial Surgery: Lashonda Barlow RDMS : ??1985 ?Age: ?? [...] surveillance with twice weekly BPP, alternating between [facility] and [facility]. Return to primary provider for continued [...] EDWARDS Study Date: 09/02/2023 11:58am Pat. NO: [id number] Referring MD: HOMAR MEDRANO Site: Oral And Maxillofacial Surgery: Lashonda Barlow RDMS : 1985 Age: 37 [...] Continue surveillance with twice weekly [facility]. Return to primary provider for [...] polyhydramnios was again noted. Bassem Pathak MD [facility] US ORDERABLE S * [facility] US Comprehensive Single F/U [...] CDT ?Comp Follow Up ----- Pat. Name: CORNELIA EDWARDSABEL ? Study Date: ??08/21/2023 11:58am Pat. NO: ??[id number] ?Referring ??MD: HOMAR MEDRANO Site: ? Oral And Maxillofacial Surgery: Yamila Dutton RDMS : ??1985 ?Age: ?? [...] lb 4 ?oz EFW by ? Hadlock ([id number]) Head / Face / Neck Biometry: Community Cultural Development Officer ?4.4 ? mm ANATOMY ----- The following [...] Heart / Thorax ?RVOT view. LVOT view. 6-iiptqg-lsvyzaz view. Spine ?Cervical spine. sex: male. MATERNAL [...] EDWARDS Study Date: 08/21/2023 11:58am Pat. NO: [id number] Referring MD: HOMAR MEDRANO Site: Oral And Maxillofacial Surgery: Yamila Dutton RDMS : 1985 Age: 37 [...] EFW (lb,oz) 6 lb 4oz EFW by Josh([id number]) Head / Face / Neck Biometry: Community Cultural Development Officer 4.4mm ANATOMY ----- The following structures appear normal: Head / Neck Cranium. Head size. Head shape.Lateral ventricles. Midline falx. Cavum septi pellucidi. Cerebellum.Cisterna magna. Thalami. Face Profile. Heart / Thorax 4-chamber view. Diaphragm. Abdomen Stomach. Kidneys. Bladder. Spine Thoracic spine. Lumbar spine.Sacral spine. The following structures were documented previously: Face Lips. Nose. Heart / Thorax RVOT view. LVOT view. 8-mvtkac-hfybcavrbvg. Spine Cervical spine. sex: male. MATERNAL STRUCTURES [...] 5. BPP is reassuring. Cristiane Patel MD [facility] ORDERABLE S * Caption Data Non-Invasive Screening???Prequel (07/24/2023 2:49 PM CDT) See Scanned Result [employer] NON-INVASIVE SCREENING PREQUEL-Scann ed 08/02/2023 7:16 PM CDT [employer] Blood STRUCTURE OF RIGHT UPPER LIMB / Unknown Venipuncture / Unknown 07/24/2023 2:49 PM CDT 07/24/2023 2:49 PM CDT Laura Abdi LAB - BLOOD [facility] [employer] [place] [address], [facility] [phone] * MFM Comprehensive Single (07/24/2023 2:13 PM CDT) Anatomical [...] ? Study Date: ??07/24/2023 1:32pm Pat. NO: ??[id number] ?Referring ??: HOMAR MEDRANO Site: ??[facility] ? Oral And Maxillofacial Surgery: Sujatha Joyce RDMS : ??1985 ?Age: ?? [...] ?102.7 ?mm ? 30w 2d ? Nicolaides ?284.3 ?mm ?31w 1d ?Hadlock Cerebellum tr ?36.3 ? mm ?31w 2d ?Nicolaides AC ?281.4 ?mm ?32w 1d ?>99% ?Hadlock Femur ?53.1 ? mm ?28w 1d ?Hadlock Humerus ?52.9 ?mm ? 30w 6d ?Elian Weight Calculation: EFW ? 1,631 ?g ? 94% ?Hadlock EFW (lb,oz) ? 3 lb 10 ?oz EFW by ?Hadlock ([id number]) Head / Face / Neck Biometry: Community Cultural Development Officer ? 3.6 ? mm CM ?5.7 ? [...] cava. Inferior vena cava. 3-vessel ? view. 4-mcmfrt-gwofvje view. Cardiac position. Cardiac size. Cardiac rhythm. [...] are between 220-240. She is following a art educator and has met with a endless belt finisher. No one has started her on insulin [...] medical record, and communicating with other health animal caretaker and/or care coordination. Please see note for details. Procedure Note Cristiane Patel MD - 07/24/2023 Comprehensive ----- Pat. Name: JACK EDWARDS Study Date: 07/24/2023 1:32pm Pat. NO: [id number] Referring MD: HOMAR MEDRANO Site: [facility] Oral And Maxillofacial Surgery: Sujatha Joyce RDMS : 1985 Age: 37 ----- INDICATION ----- Advanced Maternal Age. Type 2 diabetes. History of Gestational Hypertension. METHOD ----- Transabdominal ultrasound examination. View: Sufficient ----- Gonzalze . Number of fetuses: 1 DATING ----- [...] 3 lb 10 oz EFW by Hadlock ([id number]) Head / Face / Neck Biometry: Community Cultural Development Officer 3.6 mm CM 5.7 mm Nasal bone [...] Superior venacava. Inferior vena cava. 3-vessel view. 8-xudldz-bfumlsy view.Cardiac position. Cardiac size. Cardiac rhythm. Right [...] a diabetic educatorand has met with a endless belt finisher. No one has started her on insulin [...] electronic medical record, andcommunicating with other health animal caretaker and/or carecoordination. Please see note for details. [...] long and closed. 6. The BPP was 8. Homar Medrano APRN, CNP [facility] ORDERABLES from Last 3 Months Care Teams Computer Operations Manager Relationship Specialty Start Date End Date Tre Ba MD [facility] [address] [place] [address] PCP - General medical resident 01/15/22 Bassem Pathak MD [address] [address] [place] [address] Assigned OBGYN Provider 08/16/23
--- OUTSIDE RECORDS SUMMARY | 2023-09-04 07:32 | XMS_ITS | Encounter Summary ---
Author Organization [place] Address [address] [facility] [place] [address] Care Team Providers Care Nutrition Worker Name Role Phone Tre Ba MD Primary Care Provide r Bassem Pathak MD Unavailable [phone] Encounter Details Date Type Department Care Team [...] Info) Description 09/08/2023 11:45 AM CDT Appointment [facility] Maternal Medicine [facility] [address] [facility] [address] [place] [address] Bassem Pathak MD [address] [place] [address] Mitch Jernigan MD [address] [place], [place] [id number] 09/08/2023 12:15 PM CDT Office Visit [facility] Maternal Medicine [place] [address] [place] [address] Bassem Pathak MD [address] [place] [address] Mitch Jernigan MD [address] [place] [address] 09/15/2023 1:30 PM CDT Appointment [facility] Maternal Medicine [place] [address] [place] [phone] Mitch Jernigan MD [address] [place] [address] 09/15/2023 2:00 PM CDT Office Visit [facility] Maternal Medicine [place] [address] [place] [phone] Mitch Jernigan MD [address] [place] [address] 09/22/2023 11:45 AM CDT Appointment [facility] Maternal Medicine [place] [address] [place] [address] Luz Elena Betts MD [address] [place] [address] 09/22/2023 12:15 PM CDT Office Visit [facility] Maternal Medicine [place] [address] [place] [address] Luz Elena Betts MD [address] [place] [address] 09/29/2023 11:45 AM CDT Appointment [facility] Maternal Medicine [facility] [address] [place] [address] Luz Elena Betts MD [address] [place] [address] 09/29/2023 12:15 PM CDT Office Visit [facility] [place] [address] [place] [address] Luz Elena Betts MD [address] [place] [address] 10/06/2023 11:45 AM CDT Appointment [facility] [place] [address] [place] [address] Luz Elena Betts MD [address] [place] [address] 10/06/2023 12:15 PM CDT Office Visit [facility] [place] [address] [place] [address] Luz Elena Betts MD [address] [place] [address] documented as of this encounter Visit Diagnoses Not on filedocumented in this encounter Care Teams Nutrition Worker Relationship Specialty Start Date End Date Tre Ba MD [facility] TERRY PONCE [address] [address] PCP - General marketing intern 01/15/22 Bassem Pathak MD [address] [place] [address] Assigned OBGYN Provider 08/16/23 documented as of this encounter
--- OUTSIDE RECORDS SUMMARY | 2023-09-04 07:32 | XMS_ITS | Encounter Summary ---
Author Organization [place] Address [address] [facility] [place] [address] Care Team Providers Care Brine Maker Name Role Phone Tre Ba MD Primary Care Provide r Bassem Pathak MD Unavailable [phone] Encounter Details Date Type Department Care Team (Latest Contact Info) Description 09/02/2023 Travel Social History Tobacco Use Types Packs/Day [...] Info) Description 09/08/2023 11:45 AM CDT Appointment [facility] Maternal Medicine [facility] [address] [facility] [address] [place] [address] Bassem Pathak MD [address] [place] [address] Mitch Jernigan MD [address] [place], [place] [id number] 09/08/2023 12:15 PM CDT Office Visit [facility] Maternal Medicine [place] [address] [place] [address] Bassem Pathak MD [address] [place] [address] Mitch Jernigan MD [address] [place] [address] 09/15/2023 1:30 PM CDT Appointment [facility] Maternal Medicine [place] [address] [place] [address] Mitch Jernigan MD [address] [place] [address] 09/15/2023 2:00 PM CDT Office Visit [facility] Maternal Medicine [place] [address] [place] [address] Mitch Jernigan MD [address] [place] [address] 09/22/2023 11:45 AM CDT Appointment [facility] Maternal Medicine [place] [address] [place] [phone] Luz Elena Betts MD [address] [place] [address] 09/22/2023 12:15 PM CDT Office Visit [facility] Maternal Medicine [place] [address] [place] [phone] Luz Elena Betts MD [address] [place] [address] 09/29/2023 11:45 AM CDT Appointment [facility] Maternal Medicine [facility] [address] [place] [address] Luz Elena Betts MD [address] [place] [address] 09/29/2023 12:15 PM CDT Office Visit [facility] [place] [address] [place] [address] Luz Elena Betts MD [address] [place] [address] 10/06/2023 11:45 AM CDT Appointment [facility] [place] [address] [place] [address] Luz Elena Betts MD [address] [place] [address] 10/06/2023 12:15 PM CDT Office Visit [facility] [place] [address] [place] [address] Luz Elena Betts MD [address] [place] [address] documented as of this encounter Visit Diagnoses Not on filedocumented in this encounter Care Teams Brine Maker Relationship Specialty Start Date End Date Tre Ba MD [facility] TERRY PONCE [address] [address] PCP - General stained glass artist 01/15/22 Bassem Pathak MD [address] [place] [address] Assigned OBGYN Provider 08/16/23 documented as of this encounter
--- OUTSIDE RECORDS SUMMARY | 2023-09-04 07:32 | XMS_ITS | Encounter Summary ---
Author Organization [place] Address [address] [facility] [place] [address] Care Team Providers Care Bmx Rider Name Role Phone Tre Ba MD Primary Care Provide r Bassem Pathak MD Unavailable [phone] Encounter Details Date Type Department Care Team [...] Info) Description 09/08/2023 11:45 AM CDT Appointment [facility] Maternal Medicine [facility] [address] [facility] [address] [place] [address] Bassem Pathak MD [address] [place] [address] Mitch Jernigan MD [address] [place], [place] [id number] 09/08/2023 12:15 PM CDT Office Visit [facility] Maternal Medicine [place] [address] [place] [address] Bassem Pathak MD [address] [place] [address] Mitch Jernigan MD [address] [place] [address] 09/15/2023 1:30 PM CDT Appointment [facility] Maternal Medicine [place] [address] [place] [address] Mitch Jernigan MD [address] [place] [address] 09/15/2023 2:00 PM CDT Office Visit [facility] Maternal Medicine [place] [address] [place] [address] Mitch Jernigan MD [address] [place] [address] 09/22/2023 11:45 AM CDT Appointment [facility] Maternal Medicine [place] [address] [place] [address] Luz Elena Betts MD [address] [place] [address] 09/22/2023 12:15 PM CDT Office Visit [facility] Maternal Medicine [place] [address] [place] [address] Luz Elena Betts MD [address] [place] [address] 09/29/2023 11:45 AM CDT Appointment [facility] Maternal Medicine [facility] [address] [place] [address] Luz Elena Betts MD [address] [place] [address] 09/29/2023 12:15 PM CDT Office Visit [facility] Medicine [place] [address] [place] [address] Luz Elena Betts MD [address] [place] [address] 10/06/2023 11:45 AM CDT Appointment [facility] Medicine [place] [address] [place] [phone] Luz Elena Betts MD [address] [place] [address] 10/06/2023 12:15 PM CDT Office Visit [facility] [place] [address] [place] [address] Luz Elena Betts MD [address] [place] [address] documented as of this encounter Visit Diagnoses Not on filedocumented in this encounter Care Teams Bmx Rider Relationship Specialty Start Date End Date Tre Ba MD [facility] TERRY PONCE [address] [address] PCP - General manager of training and development 01/15/22 Bassem Pathak MD [address] [place] [address] Assigned OBGYN Provider 08/16/23 documented as of this encounter
--- OUTSIDE RECORDS SUMMARY | 2023-09-04 07:32 | XMS_ITS | Encounter Summary ---
Author Organization [place] Address [facility] [place] [address] Care Team Providers Care Human Resources Psychologist Name Role Phone Tre Ba MD Primary Care Provide r Bassem Pathak MD Unavailable [phone] Reason for Referral * Diagnostic Imaging Ultrasound (Routine) - Pending Review Specialty Diagnoses / Procedures Referred By Temo taylor Referred To Contact Radiology. Diagnoses Pre-existing type 2 diabetes mellitus during in third trimester [facility] [address] [facility] [address] [place] [address] Referral ID Status Reason Start Date Expiration Date V isits Requested Visits Authorized [id number] Pending Review 07/30/2023 07/29/2024 1 1 Reason for Visit * Diagnostic Imaging Ultrasound (Routine) - Pending Review Specialty Diagnoses / Procedures Referred By Temo taylor Referred To Contact Radiology. Diagnoses Pre-existing type 2 diabetes mellitus during in third trimester Procedures [facility] Bassem Dhillon MD [address] [place] [address] Referral ID Status Reason Start Date Expiration Date V isits Requested Visits Authorized [id number] Pending Review 07/30/2023 07/29/2024 1 1 Encounter Details Date Type Department Care Team (Latest Contact Info) Description 08/25/2023 11:45 AM CDT - 08/25/2023 11:59 PM CDT Hospital Encounter [facility] Maternal Medicine [facility] [address] [place] [address] Bassem Pathak MD [address] [place] [address] Luz Elena Betts MD [address] [place] [address] Pre-existing type 2 diabetes mellitus [...] Info) Description 09/08/2023 11:45 AM CDT Appointment [facility] Maternal Medicine [facility] [address] [facility] [address] [place] [address] Bassem Pathak MD [address] [place] [address] Mitch Jernigan MD [address] [place] [address] 09/08/2023 12:15 PM CDT Office Visit [facility] Maternal Medicine [place] [address] [place] [address] Bassem Pathak MD [address] [place] [address] Mitch Jernigan MD [address] [place] [address] 09/15/2023 1:30 PM CDT Appointment [facility] Maternal Medicine [place] [address] [place] [address] Mitch Jernigan MD [address] [place] [address] 09/15/2023 2:00 PM CDT Office Visit [facility] Maternal Medicine [place] [address] [place] [address] Mitch Jernigan MD [address] [place] [address] 09/22/2023 11:45 AM CDT Appointment [facility] Maternal Medicine [place] [address] [place] [address] Luz Elena Betts MD [address] [place] [address] 09/22/2023 12:15 PM CDT Office Visit [facility] Maternal Medicine [place] [address] [place] [address] Luz Elena Betts MD [address] [place] [address] 09/29/2023 11:45 AM CDT Appointment [facility] Medicine [facility] [address] [place] [address] Luz Elena Betts MD [address] [place] [address] 09/29/2023 12:15 PM CDT Office Visit [facility] Maternal Medicine [place] [address] [place] [address] Luz Elena Betts MD [address] [place] [address] 10/06/2023 11:45 AM CDT Appointment [facility] Medicine [facility] [address] [place] [phone] Luz Elena Betts MD [address] [place] [address] 10/06/2023 12:15 PM CDT Office Visit [facility] Medicine [place] [address] [place] [address] Luz Elena Betts MD [address] [place] [address] documented as of this encounter Procedures Procedure Name Priority Date/Time Associated Diagnosis Comments [facility] BPP SINGLE Routine 08/25/2023 12:05 PM CDT Pre-existing type 2 diabetes mellitus during in third trimester documented in this encounter Results * [facility] BPP Single (08/25/2023 12:05 PM CDT) Anatomical Region Laterality Modality Ultrasound 08/25/2023 11:4 8 AM CDT Impressions 08/25/2023 1:03 PM CDT IMPRESSION ----- 1) Gonzalez intrauterine at 33w 3d gestational age. 2) The BPP is reassuring. 3) Mild polyhydramnios is noted. Narrative 08/25/2023 1:03 PM CDT ?BPP ----- Pat. Name: SHEBA WILDER ? Study Date: ??08/25/2023 11:48am Pat. NO: ??[id number] ?Referring ??MD: HOMAR MEDRANO Site: ? Excellence Leader: Micha Gage RDMS : ??1985 ?Age: ?? [...] surveillance with twice weekly BPP, alternating between [facility] and [facility] Return to primary provider for continued care. [...] WILDER Study Date: 08/25/2023 11:48am Pat. NO: [id number] Referring MD: HOMAR MEDRANO Site: Excellence Leader: Micha Gage RDMS : 1985 Age: 37 [...] Continue surveillance with twice [facility], [facility]. Return to primary provider for [...] trimester documented in this encounter Care Teams Human Resources Psychologist Relationship Specialty Start Date End Date Tre Ba MD [facility] TERRY PON[address] [place], [place] [id number] PCP - General housekeeper manager 01/15/22 Bassem Pathak MD [address] [place], [place] [address] Assigned OBGYN Provider 08/16/23 documented as of this encounter
--- OUTSIDE RECORDS SUMMARY | 2023-09-04 07:33 | XMS_ITS | Encounter Summary ---
Author Organization [place] Address [address] [place] [address]. [place] [address] Care Team Providers Care Brand Engineer Name Role Phone Tre Ba MD Primary Care Provide r Encounter Details Date Type Department Care Team (Late Contact Info) Description 07/03/2023 Medical Correspondence [facility] [address] [place] [address] Scan, Non-Provider Social History Tobacco [...] Upcoming Encounters Date Type Department Care Team ([facility] Contact Info) Description 09/08/2023 11:45 AM CDT Appointment [facility] Maternal Medicine [facility] [address] [facility] [address] [place] [address] Bassem Pathak MD [address] [place], [place] [address] Mitch Jernigan MD [address] [place], [place] [address] 09/08/2023 12:15 PM CDT Office Visit [facility] Maternal Medicine [facility] [address] [place] [address] Bassem Pathak MD [address] [place] [address] Mitch Jernigan MD [address] [place] [address] 09/15/2023 1:30 PM CDT Appointment [facility] Maternal Medicine [place] [address] [facility] [address] [place] [address] Mitch Jernigan MD [address] [place] [address] 09/15/2023 2:00 PM CDT Office Visit [facility] Maternal Medicine [place] [address] [place] [address] Mitch Jernigan MD [address] [place] [address] 09/22/2023 11:45 AM CDT Appointment [facility] Maternal Medicine [place] [address] [place] [address] Luz Elena Betts MD [address] [place] [address] 09/22/2023 12:15 PM CDT Office Visit [facility] Maternal Medicine [place] [address] [place] [address] Luz Elena Betts MD [address] [place] [address] 09/29/2023 11:45 AM CDT Appointment [facility] Maternal Medicine [facility] [address] [place] [address] Luz Elena Betts MD [address] [place] [address] 09/29/2023 12:15 PM CDT Office Visit [facility] Maternal Medicine [facility] [address] [place] [address] Luz Elena Betts MD [address] [place] [address] 10/06/2023 11:45 AM CDT Appointment [facility] Maternal Medicine [place] [address] [place] [address] Luz Elena Betts MD [address] [place] [address] 10/06/2023 12:15 PM CDT Office Visit [facility] Maternal Medicine [place] [address] [place] [address] Luz Elena Betts MD [address] [place] [address] documented as of this encounter Visit Diagnoses Not on filedocumented in this encounter Care Teams Brand Engineer Relationship Specialty Start Date End Date Tre Ba MD [facility] TERRY PONCE [facility] [address] [place] [address] PCP - General biomathematician 01/15/22 documented as of this encounter
--- OUTSIDE RECORDS SUMMARY | 2023-09-04 07:33 | XMS_ITS | Encounter Summary ---
Author Organization [place] Address [address] [facility] [place] [address] Care Team Providers Care Assistant Refinery Operator Name Role Phone Tre Ba MD Primary Care Provide r Reason for Visit * Reason Comments Genetic Counseling * Consultation (Routine: Next available opening) - Pending Review Specialty Diagnoses / Procedures Referred By Contac t Referred To Contact Diagnoses related condition, antepartum Ilene Kaplan APRN [facility] [address] [place] [address] Referral ID Status Reason Start Date Expiration Date V isits Requested Visits Authorized [id number] Pending Review 07/03/2023 07/02/2024 1 1 Encounter Details Date Type Department Care Team (Late st Contact Info) Description 07/24/2023 12:45 PM CDT Office Visit [facility] Maternal Medicine Center [place] [address] [facility] [address] [place] [address] Cristiane Patel MD [address] [place] [address] Laura Abdi GC [address] [place] [address] Multigravida of advanced maternal age in [...] Abdi, GC - 07/24/2023 12:45 PM CDT [facility] Genetic Counseling Consult Patient: Sheba Wilder Date of : 1985 Date of Service: 07/24/23 Sheba was seen at the [facility] for genetic consultation. Theindication for genetic counseling is advanced maternal age. The patient was unaccompanied to this visit. The session was conducted in Bangladeshi. IMPRESSION/ PLAN 1. Sheba has not had genetic screening in this but elected to have screening today. 2. During today's [facility] visit, Sheba had a blood draw for expanded non-invasive testing (also called NIPT, NIPS, or cell-free DNA) through [facility] ([employer]). The expanded NIPT screens for trisomy 21, [...] an emaildiscussing the results be sent to [email or web address]. Sheba was informed that results, including sex, will be available in [employer]. 3. Sheba had a level II comprehensive anatomy ultrasound today. Please see the ultrasound report for further details. 4. [facility] recommends weekly BPPs starting next week. [...] in these pregnancies, please refer to the [facility] note for more details. FAMILY HISTORY A three-generation family history was obtained today and is scanned under the Media tab in [employer] The family history was reported by Sheba. [...] of recurrent loss shecan reach out to [facility] or her OB. Sheba has a [...] wants more information they can contact the [facility] Cancer Risk Management Program ( ). We [...] individuals (generally male) being most severely affected. screening was reviewed. About [place] Scre[place] The patient does NOT have a [...] of other microdeletion syndromes (expanded NIPT through [facility]). At this time, it is not possible [...] pleasure to be involved with Sheba???s care. Pxvn-vp-clhd time of the meeting was 30 minutes. Laura Abdi MS, [facility] Maternal Medicine Office: [phone] MFM: [phone] [facility] documented in this encounter Plan of Treatment Upcoming Encounters Date Type Department Care Team (Late st Contact Info) Description 09/08/2023 11:[address] [facility] Maternal Medicine [place] [address] [place] [phone] Bassem Pathak MD [address] [place], [place] [phone] Mitch Jernigan MD [address] [place] [phone] 09/08/2023 12:15 PM CDT Office Visit [facility] Medicine [place] [address] [place] [phone] Bassem Pathak MD [address] [place], [place] [address] Mitch Jernigan MD [address] [place] [address] [phone] 09/15/2023 1:[address] [facility] Maternal Medicine [place] [address] [place] [address] [phone] Mitch Jernigan MD [address] [place] [phone] 09/15/2023 2:00 PM CDT Office Visit [facility] Maternal Medicine Center [place] [address] [place] [phone] Mitch Jernigan MD [address] [place] [address] 09/22/2023 11:45 AM CDT Appointment [facility] Maternal Medicine [place] [address] [place] [phone] Luz Elena Betts MD [address] [place] [address] 09/22/2023 12:15 PM CDT Office Visit [facility] Maternal Medicine [place] [address] [place] [phone] Luz Elena Betts MD [address] [place] [address] 09/29/2023 11:45 AM CDT Appointment [facility] Maternal Medicine [place] [address] [place] [phone] Luz Elena Betts MD [address] [place] [address] 09/29/2023 12:15 PM CDT Office Visit [facility] Maternal Medicine [place] [address] [place] [phone] Luz Elena Betts MD [address] [place] [address] 10/06/2023 11:45 AM CDT Appointment [facility] Maternal Medicine [place] [address] [place] [phone] Luz Elena Betts MD [address] [place] [address] 10/06/2023 12:15 PM CDT Office Visit [facility] M[facility] Medicine [facility] [place] [address] [facility] [address] [place] [address] Luz Elena Betts MD [address] [place], [place] [phone] documented as of this encounter Results * [facility] Non-Invasive Screening???Prequel (07/24/2023 2:49 PM CDT) See Scanned Result [facility] NON-INVASIVE SCREENING PREQUEL-Scann ed 08/02/2023 7:16 PM CDT [facility] [employer] [facility] Blood STRUCTURE OF RIGHT UPPER LIMB / Unknown Venipuncture / Unknown 07/24/2023 2:49 PM CDT 07/24/2023 2:49 PM CDT Laura Abdi GC LAB - BLOOD ORDERABL ES [facility] [address] [place] [address], [facility] [phone] documented in this encounter Visit Diagnoses Diagnosis Multigravida of advanced maternal age in third trimester- Primary related condition, antepartum documented in this encounter Care Teams Assistant Refinery Operator Relationship Specialty Start Date End Date Tre Ba MD [address] [facility] [address] [place] [address] PCP - General barrel brander 01/15/22 documented as of this encounter
--- OUTSIDE RECORDS SUMMARY | 2023-09-04 07:33 | XMS_ITS | Encounter Summary ---
Author Organization [place] Address [address] [facility] [place] [address] Care Team Providers Care Basket Bottom Machine Operator Name Role Phone Tre Ba MD Primary Care Provide r Reason for Referral * Diagnostic Imaging Ultrasound (Routine) - Pending Review Specialty Diagnoses / Procedures Referred By Temo taylor Referred To Contact Radiology. Diagnoses Diabetes mellitus, type 2 (H) Polyhydramnios affecting Procedures [facility] Cristiane Rubin MD [address] [place] [address] Referral ID Status Reason Start Date Expiration Date V isits Requested Visits Authorized [id number] Pending Review 07/24/2023 07/23/2024 1 1 Reason for Visit * Diagnostic Imaging Ultrasound (Routine) - Pending Review Specialty Diagnoses / Procedures Referred By Temo taylor Referred To Contact Radiology. Diagnoses Diabetes mellitus, type 2 (H) Polyhydramnios affecting Procedures [facility] Cristiane Rubin MD [address] [place] [address] Referral ID Status Reason Start Date Expiration Date V isits Requested Visits Authorized [id number] Pending Review 07/24/2023 07/23/2024 1 1 Encounter Details Date Type Department Care Team (Latest Contact Info) Description 08/14/2023 3:30 PM CDT - 08/14/2023 11:59 PM CDT Hospital Encounter [facility] M[facility] [place] [address] [facility] [address] [place] [phone] Cristiane Patel MD [address] [place], [place] [address] Mitch Jernigan MD [address] [place], [place] [address] Polyhydramnios affecting Discharge Disposition: Home or Self [...] Info) Description 09/08/2023 11:45 AM CDT Appointment [facility] [place] [address] [facility] [address] [place] [phone] Bassem Pathak MD [address] [place], [place] [address] Mitch Jernigan MD [address] [place], [place] [address] 09/08/2023 12:15 PM CDT Office Visit [facility] Maternal Medicine [place] [address] [place] [phone] Bassem Pathak MD [address] [place] [address] Mitch Jernigan MD [address] [place] [address] 09/15/2023 1:30 PM CDT Appointment [facility] M[facility] Medicine [place] [address] [place] [phone] Mitch Jernigan MD [address] [place], [place] [address] 09/15/2023 2:00 PM CDT Office Visit [facility] Maternal Medicine [place] [address] [place] [phone] Mitch Jernigan MD [address] [place] [address] [phone] 09/22/2023 11:45 AM CDT Appointment [facility]aternal Medicine [place] [address] [place] [phone] Luz Elena Betts MD [address] [place], [place] [address] 09/22/2023 12:15 PM CDT Office Visit [facility] Maternal Medicine [place] [address] [place] [phone] Luz Elena Betts MD [address] [place], [place] [address] 09/29/2023 11:45 AM CDT Appointment [facility]aternal Medicine [place] [address] [place] [phone] Luz Elena Betts MD [address] [place] [address] 09/29/2023 12:15 PM CDT Office Visit [facility] Maternal Medicine [place] [address] [place] [phone] Luz Elena Betts MD [address] [place] [address] 10/06/2023 11:45 AM CDT Appointment [facility] Medicine [place] [address] [place] [phone] Luz Elena Betts MD [address] [place] [address] 10/06/2023 12:15 PM CDT Office Visit [facility] Medicine [place] [address] [place] [phone] Luz Elena Betts MD [address] [place] [address] documented as of this encounter Procedures Procedure Name Priority Date/Time Associated Diagnosis Comments [facility] BPP SINGLE Routine 08/14/2023 3:54 PM CDT Polyhydramnios affecting documented in this encounter Results * [facility] BPP Single (08/14/2023 3:54 PM CDT) Anatomical Region Laterality Modality Ultrasound 08/14/2023 3:35 PM CDT Impressions 08/14/2023 4:06 PM CDT IMPRESSION ----- 1) Mild polyhydramnios. 2) BPP is reassuring. Narrative 08/14/2023 4:06 PM CDT ?BPP ----- Pat. Name: SHEBA WILDER ? Study Date: ??08/14/2023 3:35pm Pat. NO: ??[id number] ?Referring ??MD: HOMAR MEDRANO Site: ? Skill Training Program Coordinator: Gemma Pinzon RDMS : ??1985 ?Age: ?? [...] has not contacted your office or her music minister. Currently we are not reviewing her blood [...] detected Procedure Note Mitch Jernigan MD - 06/21/2024 BPP ----- Pat. Name: SHEBA WILDER Study Date: 08/14/2023 3:35pm Pat. NO: [id number] Referring MD: HOMAR MEDRANO Site: Skill Training Program Coordinator: Gemma Pinzon RDMS : 1985 Age: 37 [...] and has notcontacted your office or her music minister. Currently we are not reviewing her blood [...] 2) BPP is reassuring. Cristiane Patel MD IM [facility]FM US ORDERABLE S documented in this encounter Visit Diagnoses Diagnosis Polyhydramnios affecting documented in this encounter Care Teams Basket Bottom Machine Operator Relationship Specialty Start Date End Date Tre Ba MD [facility] [address] PCP - General industrial organization manager 01/15/22 documented as of this encounter
--- OUTSIDE RECORDS SUMMARY | 2023-09-04 07:33 | XMS_ITS | Encounter Summary ---
Author Organization [place] Address [address] [place] [address]. [place] [address] Care Team Providers Care Building Performance Consultant Name Role Phone Tre Ba MD Primary Care Provide r Reason for Referral * (Routine) - Authorized Specialty Diagnoses / Procedures [facility] Referred To Contact Cardiology Diagnoses with type 2 diabetes mellitus in third trimester Procedures Echo (TTE) Complete Cristiane Patel MD [address] [place] [address] [facility] [address] [place] [phone] Referral ID Status Reason Start Date Expiration Date V isits Requested Visits Authorized [id number] Authorized 07/24/2023 07/23/2024 1 1 * Diagnostic Imaging Ultrasound (Routine) - Pending Review Specialty Diagnoses / Procedures Referred By Contac t Referred To Contact Radiology. Diagnoses Diabetes mellitus, type 2 (H) Polyhydramnios affecting Procedures [facility] US Comprehensive Single F/U Cristiane Patel MD [address] [place] [address] Referral ID Status Reason Start Date Expiration Date V isits Requested Visits Authorized [id number] Pending Review 07/24/2023 07/23/2024 1 1 * Diagnostic Imaging Ultrasound (Routine) - Pending Review Specialty Diagnoses / Procedures Referred By Contac t Referred To Contact Radiology. Diagnoses Diabetes mellitus, type 2 (H) Polyhydramnios affecting Procedures [facility] Cristiane Rubin MD [address] [place] [address] Referral ID Status Reason Start Date Expiration Date V isits Requested Visits Authorized [id number] Pending Review 07/24/2023 07/23/2024 1 1 * Diagnostic Imaging Ultrasound (Routine) - Pending Review Specialty Diagnoses / Procedures Referred By Contac t Referred To Contact Radiology. Diagnoses Diabetes mellitus, type 2 (H) Polyhydramnios affecting Procedures [facility] Cristiane Rubin MD [address] [place] [address] Referral ID Status Reason Start Date Expiration Date V isits Requested Visits Authorized [id number] Pending Review 07/24/2023 07/23/2024 1 1 Reason for Visit * Reason Comments Ultrasound L2- AMA, T2DM Encounter Details Date Type Department Care Team (Late st Contact Info) Description 07/24/2023 2:00 PM CDT Office Visit [facility] Maternal Medicine [facility] [place] [address] [facility] [address] [place] [address] Cristiane Patel MD [address] [place] [address] with type 2 diabetes mellitus in [...] in the Maternal- Medicine Center at the [facility] today. For a detailed report of the ultrasound examination, please see the ultrasound report which can be found under the imaging tab. If you have questions regarding today's evaluation or if we can be of further service, please contact the Maternal- Medicine Center. Cristiane Patel MD Golf [employer] Head Former, STRUCTURAL IRON WORKER Maternal- Medicine [phone] (Pager) documented in this encounter Nursing Notes * Katina Espinoza RN - 07/24/2023 2:00 PM CDT Patient reports positive movement, no pain, no contractions, leaking of fluid, or bleeding. Reports blood sugar values elevated- fasting this morning was 175 reports after meals often 220. Has appointment in [place] next week to discuss starting insulin. Patient denies headache, visual changes, nausea/vomiting, epigastric pain related to preeclampsia. SBAR given to TREVOR GRESHAM, see their note in Epic. documented in this encounter Plan of Treatment Upcoming Encounters Date Type Department Care Team (Late st Contact Info) Description 09/08/2023 11:[address] [facility] M[facility] Medicine [facility] [place] [address] [facility] [address] [place] [address] Bassem Pathak MD [address] [place] [address] Mitch Jernigan MD [address] [place] [address] 09/08/2023 12:15 PM CDT Office Visit [facility] Maternal Medicine [place] [address] [place] [phone] Bassem Pathak MD [address] [place] [address] Mitch Jernigan MD [address] [place], [place] [address] 09/15/2023 1:[address] [facility] Maternal Medicine [place] [address] [place] [phone] Mitch Jernigan MD [address] [place], [place] [address] 09/15/2023 2:00 PM CDT Office Visit [facility] Maternal Medicine [place] [address] [place] [phone] Mitch Jernigan MD [address] [place] [address] [phone] 09/22/2023 11:[address] [facility] Maternal Medicine [place] [address] [place] [phone] Luz Elena Betts MD [address] [place], [place] [address] 09/22/2023 12:15 PM CDT Office Visit [facility] Maternal Medicine [place] [address] [place] [phone] Luz Elena Betts MD [address] [place], [place] [phone] 09/29/2023 11:[address] [facility] Maternal Medicine [place] [address] [place] [phone] Luz Elena Betts MD [address] [place] [address] 09/29/2023 12:15 PM CDT Office Visit [facility] Maternal Medicine [place] [address] [place] [phone] Luz Elena Betts MD [address] [place] [address] 10/06/2023 11:[address] [facility] Maternal Medicine [place] [address] [place] [phone] Luz Elena Betts MD [address] [place] [address] 10/06/2023 12:15 PM CDT Office Visit [facility] Medicine [place] [address] [place] [phone] Luz Elena Betts MD [address] [place], [place] [address] Scheduled Orders Name Type Priority Associated Diagnoses Orde r Schedule Echo (TTE) Complete Echocardiography Routine with type 2 diabetes mellitus in third trimester Expected: 08/07/2023 (Approximate), Expires: 07/23/2024 documented as of this encounter Results * [facility] US Comprehensive Single F/U (08/21/2023 12:39 [...] CDT ?Comp Follow Up ----- Pat. Name: GRACE JACK ? Study Date: ??08/21/2023 11:58am Pat. NO: ??[id number] ?Referring ??MD: HOMAR MEDRANO Site: ? Assembler Filters: Yamila [place]utton RDMS : ??1985 ?Age: ?? [...] lb 4 ?oz EFW by ? Hadlock ([id number]) Head / Face / Neck Biometry: Geology Associate ?4.4 ? mm ANATOMY ----- The following [...] Heart / Thorax ?RVOT view. LVOT view. 9-fbjmqf-mttyyph view. Spine ?Cervical spine. sex: male. MATERNAL STRUCTURES ----- Cervix ?Suboptimal Right Ovary ?Not examined Left Ovary ?Not examined RECOMMENDATION ----- We discussed the findings on today's ultrasound with the patient. The patient has the following ultrasounds already scheduled: 1) BPP once weekly at your clinic. 2) BPP once weekly at [facility]. 3) echo on 08/28/23 with Pediatric Cardiology. 4) growth assessment at [facility] in 4 weeks. Given the polyhydramnios [...] WILDER Study Date: 08/21/2023 11:58am Pat. NO: [id number] Referring MD: HOMAR MEDRANO Site: Assembler Filters: Yamila Dutton RDMS : 1985 Age: 37 [...] EFW (lb,oz) 6 lb 4oz EFW by Hadlock([id number]) Head / Face / Neck Biometry: Geology Associate 4.4mm ANATOMY ----- The following structures appear normal: Head / Neck Cranium. Head size. Head shape.Lateral ventricles. Midline falx. Cavum septi pellucidi. Cerebellum.Cisterna magna. Thalami. Face Profile. Heart / Thorax 4-chamber view. Diaphragm. Abdomen Stomach. Kidneys. Bladder. Spine Thoracic spine. Lumbar spine.Sacral spine. The following structures were documented previously: Face Lips. Nose. Heart / Thorax RVOT view. LVOT view. 0-wfphtk-qnleowmtdzq. Spine Cervical spine. sex: male. MATERNAL STRUCTURES ----- Cervix Suboptimal Right Ovary Not examined Left Ovary Not examined RECOMMENDATION ----- We discussed the findings on today's ultrasound with the patient. The patient has the following ultrasounds already scheduled: 1) BPP once weekly at your clinic. 2) BPP once weekly at [facility]. 3) echo on 08/28/23 with Pediatric Cardiology. 4) growth assessment at [facility] in 4 weeks. Given the polyhydramnios [...] 5. BPP is reassuring. Cristiane Patel MD [facility] US ORDERABLE S * [facility] BPP Single (08/14/2023 3:54 PM CDT) Anatomical Region Laterality Modality Ultrasound 08/14/2023 3:35 PM CDT Impressions 08/14/2023 4:06 PM CDT IMPRESSION ----- 1) Mild polyhydramnios. 2) BPP is reassuring. Narrative 08/14/2023 4:06 PM CDT ?BPP ----- Pat. Name: JACK WILDER ? Study Date: ??08/14/2023 3:35pm Pat. NO: ??[id number] ?Referring ??MD: HOMAR MEDRANO Site: ? Assembler Filters: Gemma Pinzon RDMS : ??1985 ?Age: ?? [...] has not contacted your office or her loop drier operator. Currently we are not reviewing her [...] WILDER Study Date: 08/14/2023 3:35pm Pat. NO: [id number] Referring MD: HOMAR MEDRANO Site: Assembler Filters: Gemma Pinzon RDMS : 1985 Age: 37 [...] dating based on the LMP, selected on 431w + 6 d 10/10/2023 GENERAL EVALUATION ----- [...] and has notcontacted your office or her loop drier operator. Currently we are not reviewing her [...] 2) BPP is reassuring. Cristiane Patel MD [facility] US ORDERABLE S * [facility] BPP Single (07/30/2023 3:46 PM CDT) [...] ? Study Date: ??07/30/2023 3:27pm Pat. NO: ??[id number] ?Referring ??MD: HOMAR MEDRANO Site: ??[place] ? Assembler Filters: Lashonda Barlow RDMS : ??1985 ?Age: ?? [...] with MFM and once with PCP in [place]. Recommend delivery for GDM A2 and pregestational: ? Well controlled: 85i5c-61r5r ? Poorly controlled: 53s7v-24t3k ? Failed in-hospital attempt at control: 45z4r-64h7q Thank you for the opportunity to participate in the care of this patient. If you have questions regarding today's evaluation or if we can be of further service, please contact the Maternal- Medicine Center. anomalies may be present but not detected Procedure Note Bassem Pathak MD - 07/30/2023 BPP ----- Pat. Name: JACK WILDER Study Date: 07/30/2023 3:27pm Pat. NO: [id number] Referring MD: HOMAR MEDRANO Site: [facility] Assembler Filters: Lashonda Barlow RDMS : 1985 Age: 37 [...] with twice weekly BPP, once here with [facility] and once withPCP in [place]. Recommend delivery for GDM A2 and pregestational: ? Well controlled: [id number]-59g9u ? Poorly controlled: 11b7o-18r5y ? Failed in-hospital attempt at control: 05i1u-27k3c Thank you for the opportunity to participate [...] volume appears normal. Cristiane Patel MD IMG [facility] US ORDERABLE S documented in this encounter Visit Diagnoses Diagnosis with type 2 diabetes mellitus in third trimester- Primary Polyhydramnios affecting Polyhydramnios affecting Polyhydramnios affecting Polyhydramnios affecting documented in this encounter Care Teams Building Performance Consultant Relationship Specialty Start Date End Date Tre Ba MD [address] [id number] PCP - General rug repairer 01/15/22 documented as of this encounter
--- OUTSIDE RECORDS SUMMARY | 2023-09-04 07:33 | XMS_ITS | Encounter Summary ---
Author Organization [place] Address [address] [facility] [place] [address] Care Team Providers Care Range Aid Name Role Phone Tre Ba MD Primary [...] Info) Description 09/08/2023 11:45 AM CDT Appointment [facility] Maternal Medicine [facility] [address] [place] [address] Bassem Pathak MD [address] [place], [place] [phone] Mitch Jerngian MD [address] [place], [place] [address] 09/08/2023 12:15 PM CDT Office Visit [facility] Maternal Medicine [facility] [address] [place] [address] Bassem Pathak MD [address] [place] [address] Mitch Jernigan MD [address] [place] [address] 09/15/2023 1:30 PM CDT Appointment [facility] Maternal Medicine [place] [address] [place] [phone] Mitch Jernigan MD [address] [place] [address] 09/15/2023 2:00 PM CDT Office Visit [facility] Maternal Medicine [place] [address] [place] [phone] Mitch Jernigan MD [address] [place] [address] 09/22/2023 11:45 AM CDT Appointment [facility] Maternal Medicine [place] [address] [place] [phone] Luz Elena Betts MD [address] [place] [address] 09/22/2023 12:15 PM CDT Office Visit [facility] Maternal Medicine [place] [address] [place] [phone] Luz Elena Betts MD [address] [place] [address] 09/29/2023 11:45 AM CDT Appointment [facility] Maternal Medicine [place] [address] [place] [address] Luz Elena Betts MD [address] [place] [address] 09/29/2023 12:15 PM CDT Office Visit [facility] Medicine [facility] [address] [facility] [address] [place] [address] Luz Elena Betts MD [address] [place] [address] 10/06/2023 11:45 AM CDT Appointment [facility] [place] [address] [facility] [facility] [address] [place] [phone] Luz Elena Betts MD [address] [place] [address] 10/06/2023 12:15 PM CDT Office Visit [facility] [place] [address] [place] [phone] Luz Elena Betts MD [address] [place] [address] documented as of this encounter Visit Diagnoses Not on filedocumented in this encounter Care Teams Range Aid Relationship Specialty Start Date End Date Tre Ba MD [facility] [address] [place] [address] PCP - General chute worker 01/15/22 documented as of this encounter
--- OUTSIDE RECORDS SUMMARY | 2023-09-04 07:33 | XMS_ITS | Data Portability ---
Author Organization [facility] [employer], [id number] Address [address] [facility] [address] [place] [address] Assessment Encounter Date Assessment Date Assessment LastModified [...] quantitativ e, serum or plasma 2022 023 [facility], [address] [place] [address], [address], [place], [address], 09:46:18 culture, urine [address], [address], [place], [address], 4 07:02:01 Referral None recorded. Procedures None recorded. Surgeries None recorded. Imaging US, obstetric, transvagina l 2022 023 [email or web address] [id number] [facility], [address] [place] [address], [address], [place], [address], 3 13:56:56 US, obstetric, transvagina l 2022 023 [email or web address] [id number] [facility], [address] [place] [address], [address], [place], [address], 3 11:33:13 US, obstetric, transvagina l 2022 023 [email or web address] [id number] [facility], [address] [place] [address], [address], [place], [address], 3 15:37:35 US, obstetric, transvagina l 2023 024 [email or web address] [id number] [facility], [address] [place] [address], [address] [place] [address], [address], 4 14:40:10 Medication Orders None recorded. Patient TargetsNo targets recorded. Patient Instructions Encounter Date Encounter Id Patient Instructions Last Modified By Organization Details Last Modified Time 07/09/2022 [id number] venous blood draw* Not available 07/09/2022 16:10:57 03/03/2023 [id number] - New OB packet reviewed. Handouts provided. - She is considering transferring care to [place] as she lives an hour away from [...] 92 mIU/m L <5 high Not Available [facility] [address] [facility] [address], [place], [address], 07/10/2022 09:46:17 03/03/19 24 03/03/2023 URINE CULTU RE urine culture SEE RESULT S BELOW Not Available [facility] [address] [facility] [address], [place], [address], 03/05/2023 07:02:01 06/25/19 23 06/24/2022 US, obste tric, trans vagin al No observ ation record ed. [email or web address] [address], [place], [address], 06/24/2022 14:04:18 07/10/19 23 07/09/2022 US, obste tric, trans vagin al No observ ation record ed. [email or web address] [address], [place], [address], 07/09/2022 15:43:58 03/03/19 24 03/03/2023 US, obste tric, trans vagin al No observ ation record ed. [email or web address] [address], [place], [address], 03/03/2023 14:42:22 Result Notes None recorded. Problems No Known Problems Procedures Surgical History Date Name Laterality Status Provider Name and Address Organization Details Recorded Time reversal of female sterilization completed Ivis Gutierrez null, [place] - [facility] 10/14/2021 12:58:07 Tubal Ligation completed Ivis Gutierrez null, [place] - [facility] [employer] 10/14/2021 12:58:13 TUBOTUBAL ANASTOMOSIS (SURG) completed Ivette Mitchell(TERM) null, [place] - [facility] [employer] 11/11/2021 11:48:16 Imaging Results Imaging Date Name Status LastModified by Organization Details LastModified Time 06/24/2022 US, obstetric, transvaginal completed [email or web address] [address], [place], [address], 06/24/2022 14:04:18 07/09/2022 US, obstetric, transvaginal completed [email or web address] [address], [place], [address], 07/09/2022 15:43:58 03/03/2023 US, obstetric, transvaginal completed [email or web address] [address], [place], [address], 03/03/2023 14:42:22 Procedure Notes None recorded. Medical [...] Updated DateTime 06/24/2022 154.94 cm 32.3 kg/m2 14962.01 g 124 mm[Hg] 68 mm[Hg] [facility]ammie [employer] 12:10:56 Date Recorded Body height Body mass index (BMI) Body weight Systolic blood pressure Diastolic blood pressure Provider Name and Address Organization Details Last Updated DateTime 07/09/2022 154.94 cm 32.9 kg/m2 56964.07 g 114 mm[Hg] 66 mm[Hg] Dick Lacy [place] - [employer] 3 15:44:05 Date Recorded Body height Body mass index (BMI) Body weight Systolic blood pressure Diastolic blood pressure Provider Name and Address Organization Details Last Updated DateTime 03/03/2023 154.94 cm 33.2 kg/m2 81971.82 g 126 mm[Hg] 70 mm[Hg] Katina Branham [facility] [employer] 4 14:31:00 Social History Question Answer Notes LastModified by Organizat ion Details LastModified Time Tobacco Smoking Status Never Smoker Ivis RENO Barber - [facility] [employer] 06/07/2020 17:13:51 Do You Have An Advance [...] trivalent, preservative 12/08/2012 completed RENO Reddy [facility] [employer] 10/14/2021 12:57:47 MMR 01/13/2013 completed Ivis faulkner [place] [employer] [employer] 10/14/2021 12:57:47 Tdap 12/08/2012 completed RENO Reddy [employer] [employer] 10/14/2021 12:57:47 Influenza, split virus, trivalent, PF 04/13/2012 completed Ivis [facility] Barber - [facility] 10/14/2021 12:57:47 Past Encounters Encounter ID Performer Location Encounter Start Date Encounter Closed Date Diagnosis/Indication Diagnosis SNOMED-CT Code [id number] Tre Ba MD [id number] [place] [address] 06/07/2020 16:46:29 06/07/2020 17:50:47 Reversal of sterilization [id number] MD RADHA Hanna_CAITY [address],[facility] [address] [place] [address] 08/05/2021 19:21:07 08/08/2021 12:06:56 Reversal of sterilization [id number] [id number] Ter Ba MD [id number] [address] [facility],[address] [place] [address] 10/14/2021 12:38:21 10/14/2021 13:38:29 Postoperative visit [id number] Tre Ba MD [id number] [facility] [place],[facility] [address] [place] [address] 01/09/2022 11:28:39 01/09/2022 11:47:14 Finding of viability of [id number] EMMA LAGU[place]S_CAITY [address] [facility],[address] [place] [address] 01/09/2022 11:29:08 01/09/2022 18:09:47 Finding of viability of [id number] Uncertain viability of [id number] EMMA LAGUNAS_METArt [address] [facility],[address] [place] [address] 01/13/2022 12:07:11 01/14/2022 09:21:49 [id number] DO FRANCES Oropeza003_METR [address] [place] [address] 06/24/2022 11:40:01 06/24/2022 12:04:55 Finding of viability of [id number] JAKAI STRAUSSEMMA Elaine [id number]_BJTL [address] [address] 06/24/2022 11:43:10 06/24/2022 13:48:42 Gestation period, 7 weeks 41909590 Multigravi da of advanced maternal age 678777876 Past pregn barney history of miscarriage 627730966 [id number] JERMAINE QUIÑONEZ [id number] [address] [address] 07/09/2022 15:05:38 07/10/2022 11:33:13 Missed miscarriage [id number] Adri Niño DO [id number] [address] [place],[address] [place] [address] 07/09/2022 14:59:44 07/09/2022 15:27:48 Threatened miscarriage in first trimester [id number] EMMA LAGUNAS [id number] [address] [place] [address] 03/03/2023 14:15:13 03/03/2023 15:28:10 test positive [id number] Gestation period, 8 weeks 48391409 Past pregn barney history of gestational diabetes mellitus 737598717 Past pregn barney history of delivery of macrosomal infant [id number] Multigravi da of advanced maternal age 513788158 Reversal o f sterilization 088834228 [id number] Salvador Costa MD [id number] [address] [place] [address] 03/03/2023 13:46:50 03/03/2023 14:13:48 Finding of viability of 316706198 Health Concerns Section Related Observation LastModified by Organization Detai ls LastModified Time None Recorded Concern Status LastModified by Organization Details LastModified Time None Recorded Advance Directives Directive N: Payers Encounter Date Sequence Insurance Name Policy Number Policy [place] Covered Member ID [place] Member ID Guarantor Name 06/24/2022 1 [employer] - DOS PRIOR TO 2022 (MEDICAID REPLACEMENT - HMO) [id number] 1 Sheba Meño [id number] Sheba Meño 07/09/2022 1 [employer] - DOS PRIOR TO 2022 (MEDICAID REPLACEMENT - HMO) [id number] 1 Sheba Meño [id number] Sheba Meño 07/09/2022 1 [employer] - DOS PRIOR TO 2022 (MEDICAID REPLACEMENT - HMO) [id number] 1 Sheba Meño [id number] Sheba Meño 03/03/2023 SLIDING FEE SCHEDULE - [...] 8 weeks 1 day. JAK KAUFMAN, EMMA [address] [facility],[address], [place], [address], [facility] - [facility] 06/24/2022 13:48:00 07/09/2022 text/html HPI Notes: The patient presents today as follow up from [facility]. She is a . She had a [...] small clots and having cramping. SILVINO TOSCANO, [facility] [address] [facility],[address], [place], [address], [place] - [facility] [employer] 07/09/2022 16:17:52 03/03/2023 text/html HPI Notes: This [...] The patient would like to deliver at [facility]. Genetic testing was discussed today and the [...] [ ] problems/Antepartu m testing: EMMA LAGUNAS [address] [facility],[address], [place], [address], [place] - [facility] [employer] 03/03/2023 15:27:22 OBGyn Episode No OBEpisode recorded.
--- OUTSIDE RECORDS SUMMARY | 2023-09-04 07:33 | XMS_ITS | Encounter Summary ---
Author Organization [place] Address [address] [facility] [place] [address] Care Team Providers Care Prom Burn Off Operator Name Role Phone Tre Ba MD Primary Care Provide r Reason for Visit * Reason Comments Ultrasound L2-AMA Encounter Details Date Type Department Care Team ([facility] Contact Info) Description 07/08/2023 PRE VISIT [facility] Maternal Medicine [facility] [address] [place] [address] Melissa Aguiar RN Ultrasound (L2-AMA) [...] Upcoming Encounters Date Type Department Care Team ([facility] Contact Info) Description 09/08/2023 11:45 AM CDT Appointment [facility] Maternal Medicine [facility] [address] [place] [address] Bassem Pathak MD [address] [place] [address] Mitch Jernigan MD [address] [place] [address] 09/08/2023 12:15 PM CDT Office Visit [facility] Maternal Medicine [place] [address] [place] [address] Bassem Pathak MD [address] [place] [address] Mitch Jernigan MD [address] [place] [address] 09/15/2023 1:30 PM CDT Appointment [facility] Maternal Medicine [place] [address] [place] [address] Mitch Jernigan MD [address] [place] [address] 09/15/2023 2:00 PM CDT Office Visit [facility] Maternal Medicine [place] [address] [place] [address] Mitch Jernigan MD [address] [place] [address] 09/22/2023 11:45 AM CDT Appointment [facility] Maternal Medicine [place] [address] [place] [address] Luz Elena Betts MD [address] [place] [address] 09/22/2023 12:15 PM CDT Office Visit [facility] Maternal Medicine [place] [address] [place] [address] Luz Elena Betts MD [address] [place] [address] 09/29/2023 11:45 AM CDT Appointment [facility] Maternal Medicine [facility] [address] [place] [address] Luz Elena Betts MD [address] [place] [address] 09/29/2023 12:15 PM CDT Office Visit [facility] Maternal Medicine [place] [address] [place] [address] Luz Elena Betts MD [address] [place] [address] 10/06/2023 11:45 AM CDT Appointment [facility] Maternal Medicine [facility] [address] [place] [address] Luz Elena Betts MD [address] [place] [address] 10/06/2023 12:15 PM CDT Office Visit [facility] Medicine [place] [address] [place] [address] Luz Elena Betts MD [address] [place] [address] documented as of this encounter Visit Diagnoses Not on filedocumented in this encounter Care Teams Prom Burn Off Operator Relationship Specialty Start Date End Date Tre Ba MD [address] [facility] [address] [place] [address] PCP - General informatics coordinator 01/15/22 documented as of this encounter
--- OUTSIDE RECORDS SUMMARY | 2023-09-04 07:33 | XMS_ITS | Encounter Summary ---
Author Organization [place] Address [address] [facility] [place] [address] Care Team Providers Care Community Board Member Name Role Phone Tre Ba MD Primary Care Provide r Reason for Visit * Reason Onset Date Comments Results 08/03/2023 Low Risk Expande d NIPT Encounter Details Date Type Department Care Team (Late Contact Info) Description 08/03/2023 Telephone [facility] Maternal Medicine Center [address] [place] [address] Laura Abdi GC [address] [place], [place] [address]E [facility], [facility] [address] [place] [address] Results (Low Risk Expanded NIPT) [...] Info) Description 09/08/2023 11:45 AM CDT Appointment [facility] Maternal Medicine Center [place] [address] [place] [address] Bassem Pathak MD [address] [facility] [address] [facility] [address] [place] [address] Mitch Jernigan MD [address] [place] [address] 09/08/2023 12:15 PM CDT Office Visit [facility] Maternal Medicine [place] [address] [place] [phone] Bassem Pathak MD [address] [place] [address] Mitch Jernigan MD [address] [place] [address] 09/15/2023 1:30 PM CDT Appointment [facility] Maternal Medicine [place] [address] [place] [address] Mitch Jernigan MD [address] [place] [address] 09/15/2023 2:00 PM CDT Office Visit [facility] Maternal Medicine [place] [address] [place] [address] Mitch Jernigan MD [address] [place] [address] 09/22/2023 11:45 AM CDT Appointment [facility] Maternal Medicine [place] [address] [place] [phone] Luz Elena Betts MD [address] [place] [address] 09/22/2023 12:15 PM CDT Office Visit [facility] Maternal Medicine [place] [address] [place] [phone] Luz Elena Betts MD [address] [place] [address] 09/29/2023 11:45 AM CDT Appointment [facility] Maternal Medicine [place] [address] [place] [address] Luz Elena Betts MD [address] [place] [address] 09/29/2023 12:15 PM CDT Office Visit [facility] Maternal Medicine [place] [address] [place] [address] Luz Elena Betts MD [address] [place] [address] 10/06/2023 11:45 AM CDT Appointment [facility] Medicine [place] [address] [place] [phone] Luz Elena Betts MD [address] [place] [address] 10/06/2023 12:15 PM CDT Office Visit [facility] Maternal Medicine [place] [address] [place] [phone] Luz Elena Betts MD [address] [place] [address] documented as of this encounter Visit Diagnoses Not on filedocumented in this encounter Care Teams Community Board Member Relationship Specialty Start Date End Date Tre Ba MD [facility] TERRY PONCE [facility] [place] [address] [place] [address] PCP - General clinical operations specialist 01/15/22 documented as of this encounter
--- OUTSIDE RECORDS SUMMARY | 2023-09-04 07:33 | XMS_ITS | Encounter Summary ---
Author Organization [place] Address [address] [place] [address] Care Team Providers Care Furniture Arranger Name Role Phone Tre Ba MD Primary Care Provide r Reason for Referral * Consultation (Routine: Next available opening) - Pending Review Specialty Diagnoses / Procedures Referred By Contac t Referred To Contact Diagnoses related condition, antepartum Homar Kaplan APRN CNP [facility] [address] [place] [address] Referral ID Status Reason Start Date Expiration Date V isits Requested Visits Authorized [id number] Pending Review 07/03/2023 07/02/2024 1 1 Comments AMA * Diagnostic Imaging Ultrasound (Routine) - Pending Review Specialty Diagnoses / Procedures Referred By Contac t Referred To Contact Radiology. Diagnoses related condition, antepartum Procedures MFM US Comprehensive Single Homar Kaplan APRN CNP [facility] [address] [place] [address] Referral ID Status Reason Start Date Expiration Date V isits Requested Visits Authorized [id number] Pending Review 07/03/2023 07/02/2024 1 1 * Consultation (Routine: Next available opening) - Pending Review Specialty Diagnoses / Procedures Referred By Contac t Referred To Contact Diagnoses related condition, antepartum Homar Kaplan APRN CNP [facility] [address] [place] [address] [facility] [address] [place] [address] Referral ID Status Reason Start Date Expiration Date V isits Requested Visits Authorized [id number] Pending Review 07/03/2023 07/02/2024 1 1 Question Answer Preferred Location: [facility] [place] 10/10/2023 Ultrasound Complete US (14-17.6 weeks GA) US PROC NONE MFM Issue Advanced Maternal Age *MUST request Genetic Counseling MFM MD Consultation (unrelated to Ultrasound findings): No Inflammatory Bowel Disease Clinic: Joint MFM and GI Consultation: No Chronic Kidney Disease: Joint MFM and Nephrology Consultation No Genetic Counseling Consultation: Yes fax Homar Kaplan [facility], Comments There is [...] st Contact Info) Description 07/03/2023 Transcribe Orders [facility] M[facility] [place] [address] [place] [address] Homar Kaplan APRN CNP [facility] [address] [place] [address] related condition, antepartum (Primary Dx) Social History [...] Info) Description 09/08/2023 11:45 AM CDT Appointment [facility] Medicine [place] [address] [facility] [address] [place] [phone] Bassem Pathak MD [address] [place], [place] [phone] Mitch Jernigan MD [address] [place], [place] [id number] 09/08/2023 12:15 PM CDT Office Visit [facility] [place] [address] [address] [place] [phone] Bassem Pathak MD [address] [place], [place] [phone] Mitch Jernigan MD [address] [place], [place] [id number] 09/15/2023 1:30 PM CDT Appointment [facility] Medicine [place] [address] [facility] [address] [place] [phone] Mitch Jernigan MD [address] [place], [place] [phone] 09/15/2023 2:00 PM CDT Office Visit [facility] [place] [address] [facility] [facility] [address] [place] [phone] Mitch Jernigan MD [address] [place] [address] 09/22/2023 11:45 AM CDT Appointment [facility] Maternal Medicine Center [place] [address] [place] [address] Luz Elena Betts MD [address] [place] [address] 09/22/2023 12:15 PM CDT Office Visit [facility] Maternal Medicine [place] [address] [place] [address] Luz Elena Betts MD [address] [place] [address] 09/29/2023 11:45 AM CDT Appointment [facility] Maternal Medicine [place] [address] [place] [phone] Luz Elena Betts MD [address] [place] [address] 09/29/2023 12:15 PM CDT Office Visit [facility] Maternal Medicine [place] [address] [place] [phone] Luz Elena Betts MD [address] [place] [address] 10/06/2023 11:45 AM CDT Appointment [facility] Maternal Medicine [place] [address] [place] [phone] Luz Elena Betts MD [address] [place] [address] 10/06/2023 12:15 PM CDT Office Visit [facility] [place] [address] [facility] [address] [place] [address] Luz Elena Betts MD [address] [place] [address] Scheduled Referrals Name Type Priority Associated Diagnoses Orde r Schedule Mat Med Ctr Referral - Referral Routine: Next available opening related condition, antepartum Expected: 07/03/2023 (Approximate), Expires: 12/30/2023 [facility] Genetic Counseling Referral Routine: Next available opening related condition, antepartum Expected: 07/03/2023 (Approximate), Expires: 07/02/2024 documented as of this encounter Results * [facility] US Comprehensive Single (07/24/2023 2:13 PM [...] 4:30 PM CDT ?Comprehensive ----- Pat. Name: GRACEJACK Wall ? Study Date: ??07/24/2023 1:32pm Pat. NO: ??[id number] ?Referring ??MD: HOMAR KAPLAN Site: ??[facility] ? Vice President Tax: Sujatha Joyce RDMS : ??1985 ?Age: ?? [...] Biometry: BPD ?76.1 ?mm ? 30w 4d ?Hadkevin BECK ?102.7 ?mm ? 30w 2d ? Nicolaides HC ?284.3 ?mm ?31w 1d ?Hadlock Cerebellum tr ?36.3 ? mm ?31w 2d ?Nicolaides AC ?281.4 ?mm ?32w 1d ?>99% ?Hadlock Femur ?53.1 ? mm ?28w 1d ?Hadlock Humerus ?52.9 ?mm ? 30w 6d ?Elian Weight Calculation: EFW ? 1,631 ?g ? 94% ?Hadlock EFW (lb,oz) ? 3 lb 10 ?oz EFW by ?Hadlock ([id number]) Head / Face / Neck Biometry: Back Roller ? 3.6 ? mm CM ?5.7 ? [...] cava. Inferior vena cava. 3-vessel ? view. 7-ocvwnm-azoensh view. Cardiac position. Cardiac size. Cardiac rhythm. [...] are between 220-240. She is following a consumer educator and has met with a wedger and gluer. No one has started her on insulin [...] medical record, and communicating with other health director of career services and/or care coordination. Please see note for details. Procedure Note Cristiane Patel MD - 07/24/2023 Comprehensive ----- Pat. Name: JACK WILDER Study Date: 07/24/2023 1:32pm Pat. NO: [id number] Referring MD: HOMAR KAPLAN Site: [facility] Vice President Tax: Sujatha Joyce RDMS : 1985 Age: 37 [...] 3 lb 10 oz EFW by Hadlock ([id number]-[id number]-FL) Head / Face / Neck Biometry: Back Roller 3.6 mm CM 5.7 mm Nasal bone [...] Superior venacava. Inferior vena cava. 3-vessel view. 9-laiaqn-ssnztfa view.Cardiac position. Cardiac size. Cardiac rhythm. Right [...] a diabetic educatorand has met with a wedger and gluer. No one has started her on insulin yet - [place] an appointment to establish with Endocrinology on [...] electronic medical record, andcommunicating with other health director of career services and/or carecoordination. Please see note for details. [...] closed. 6. The BPP was 09/30. Homar Kaplan APRN DISHWASHING MACHINE OPERATOR IMG MFM US ORDERABLES documented in this encounter Visit Diagnoses Diagnosis related condition, antepartum- Primary related condition, antepartum documented in this encounter Care Teams Furniture Arranger Relationship Specialty Start Date End Date Tre Ba MD [address] [address] PCP - General hospice superintendent 01/15/22 documented as of this encounter
--- OUTSIDE RECORDS SUMMARY | 2023-09-04 07:33 | XMS_ITS | Encounter Summary ---
Author Organization [place] Address [facility] [place] [address] Care Team Providers Care Element Burner Name Role Phone Tre Ba MD Primary Care Provide r Reason for Referral * Diagnostic Imaging Ultrasound (Routine) - Pending Review Specialty Diagnoses / Procedures Referred By Temo atylor Referred To Contact Radiology. Diagnoses related condition, antepartum Procedures [facility] US Comprehensive Single Homar Medrano APRN CNP [facility] [address] [place] [address] Referral ID Status Reason Start Date Expiration Date V isits Requested Visits Authorized [id number] Pending Review 07/03/2023 07/02/2024 1 1 Reason for Visit * Diagnostic Imaging Ultrasound (Routine) - Pending Review Specialty Diagnoses / Procedures Referred By Temo taylor Referred To Contact Radiology. Diagnoses related condition, antepartum Procedures [facility] US Comprehensive Single Homar Medrano APRN [facility] [address] [place] [address] Referral ID Status Reason Start Date Expiration Date V isits Requested Visits Authorized [id number] Pending Review 07/03/2023 07/02/2024 1 1 Encounter Details Date Type Department Care Team (Latest Contact Info) Description 07/24/2023 12:50 PM CDT - 07/24/2023 11:59 PM CDT Hospital Encounter [facility] Maternal Medicine Center [place] [address] [facility] [address] [place] [address] Cristiane Patel MD [address] [place], [place] [phone] related condition, antepartum Discharge Disposition: Home or [...] 09/08/2023 11:[address] [facility] Maternal Medicine [facility] [address] [facility] [address] [place] [phone] Bassem Pathak MD [address] [place], [place] [address] Mitch Jernigan MD [address] [place], [place] [phone] 09/08/2023 12:15 PM CDT Office Visit [facility] Maternal Medicine [facility] [address] [facility] [address] [place] [phone] Bassem Pathak MD [address] [place] [address] Mitch Jernigan MD [address] [place] [address] 09/15/2023 1:[address] [facility] Maternal Medicine [place] [address] [place] [phone] Mitch Jernigan MD [address] [place] [address] 09/15/2023 2:00 PM CDT Office Visit [facility] Maternal Medicine [place] [address] [place] [phone] Mitch Jernigan MD [address] [place] [address] 09/22/2023 11:[address] [facility] Maternal Medicine [place] [address] [place] [phone] Luz Elena Betts MD [address] [place] [address] 09/22/2023 12:15 PM CDT Office Visit [facility] Maternal Medicine [place] [address] [place] [phone] Luz Elena Betts MD [address] [place] [address] 09/29/2023 11:[address] [facility] Maternal Medicine [place] [address] [place] [phone] Luz Elena Betts MD [address] [place] [address] 09/29/2023 12:15 PM CDT Office Visit [facility] Medicine [facility] [address] [place] [phone] Luz Elena Betts MD [address] [place] [address] 10/06/2023 11:45 AM CDT Appointment [facility] Medicine [place] [address] [place] [phone] Luz Elena Betts MD [address] [place] [address] 10/06/2023 12:15 PM CDT Office Visit [facility] Medicine [place] [address] [place] [phone] Luz Elena Betts MD [address] [place] [address] documented as of this encounter Procedures Procedure Name Priority Date/Time Associated Diagnosis Comments [facility] US COMPREHENSIVE SINGLE Routine 07/24/2023 2:13 PM CDT related condition, antepartum documented in this encounter Results * [facility] US Comprehensive Single (07/24/2023 2:13 PM CDT) [...] ? Study Date: ??07/24/2023 1:32pm Pat. NO: ??[id number] ?Referring ??MD: HOMAR MEDRANO Site: ??[facility] ? Wire Threader: Sujatha Joyce RDMS : ??1985 ?Age: ?? [...] 3 lb 10 ?oz EFW by ?Josh (TLO-ID-SP-FL) Head / Face / Neck Biometry: Candy Department Manager ? 3.6 ? mm CM ?5.7 ? [...] cava. Inferior vena cava. 3-vessel ? view. 8-altdvl-dhleowi view. Cardiac position. Cardiac size. Cardiac rhythm. [...] are between 220-240. She is following a life skills educator and has met with a research mechanic. No one has started her on insulin [...] medical record, and communicating with other health ostomy care nurse and/or care coordination. Please see note for details. Procedure Note Cristiane Patel MD - 07/24/2023 Comprehensive ----- Pat. Name: JACK WILDER Study Date: 07/24/2023 1:32pm Pat. NO: [id number] Referring MD: HOMAR MEDRANO Site: [facility] Wire Threader: Sujatha Joyce RDMS : 1985 Age: 37 [...] mm28w 1d Hadlock Humerus 52.9 mm30w 6d [facility] Weight Calculation: EFW 1,631 g94% Hadlock EFW (lb,oz) 3 lb 10 oz EFW by Hadlock (SBP-LY-SO-FL) Head / Face / Neck Biometry: Candy Department Manager 3.6 mm CM 5.7 mm Nasal bone [...] Superior venacava. Inferior vena cava. 3-vessel view. 2-oxuqrg-ijrpjwb view.Cardiac position. Cardiac size. Cardiac rhythm. Right [...] a diabetic educatorand has met with a research mechanic. No one has started her on insulin [...] electronic medical record, andcommunicating with other health ostomy care nurse and/or carecoordination. Please see note for details. [...] The BPP was 8/8. Homar Medrano APRN LINUX KERNEL DEVELOPER IMG MFM US ORDERABLES documented in this encounter Visit Diagnoses Diagnosis related condition, antepartum documented in this encounter Care Teams Element Burner Relationship Specialty Start Date End Date Tre Ba MD [address] [place] [address] PCP - General tar leveler 01/15/22 documented as of this encounter
--- OUTSIDE RECORDS SUMMARY | 2023-09-04 07:33 | XMS_ITS | Encounter Summary ---
Author Organization [facility] [place] Address [address] [facility] [place] [address] Care Team Providers Care Labourers Name Role Phone Tre Ba MD Primary Care Provide r Reason for Referral * Diagnostic Imaging Ultrasound (Routine) - Pending Review Specialty Diagnoses / Procedures Referred By Temo taylor Referred To Contact Radiology. Diagnoses Diabetes mellitus, type 2 (H) Polyhydramnios affecting Procedures [facility] Cristiane Rubin MD [address] [place] [address] Referral ID Status Reason Start Date Expiration Date V isits Requested Visits Authorized [id number] Pending Review 07/24/2023 07/23/2024 1 1 Reason for Visit * Diagnostic Imaging Ultrasound (Routine) - Pending Review Specialty Diagnoses / Procedures Referred By Temo taylor Referred To Contact Radiology. Diagnoses Diabetes mellitus, type 2 (H) Polyhydramnios affecting Procedures [facility] Cristiane Rubin MD [address] [place] [address] Referral ID Status Reason Start Date Expiration Date V isits Requested Visits Authorized [id number] Pending Review 07/24/2023 07/23/2024 1 1 Encounter Details Date Type Department Care Team (Latest Contact Info) Description 07/30/2023 3:25 PM CDT - 07/30/2023 11:59 PM CDT Hospital Encounter [facility] Maternal Medicine [facility] [address] [phone] Bassem Pathak MD [address] [place], [place] [phone] Polyhydramnios affecting Discharge Disposition: Home or Self [...] Info) Description 09/08/2023 11:45 AM CDT Appointment [facility] Maternal Medicine [facility] [address] [facility] [address] [place] [phone] Bassem Pathak MD [address] [place], [place] [address] Mitch Jernigan MD [address] [place], [place] [address] 09/08/2023 12:15 PM CDT Office Visit [facility] Maternal Medicine [facility] [address] [facility] [address] [place] [phone] Bassem Pathak MD [address] [place] [address] Mitch Jernigan MD [address] [place] [address] 09/15/2023 1:30 PM CDT Appointment [facility] Maternal Medicine [place] [address] [place] [phone] Mitch Jernigan MD [address] [place] [address] 09/15/2023 2:00 PM CDT Office Visit [facility] Maternal Medicine [place] [address] [place] [phone] Mitch Jernigan MD [address] [place] [address] 09/22/2023 11:45 AM CDT Appointment [facility] Maternal Medicine [place] [address] [place] [phone] Luz Elena Betts MD [address] [place] [address] 09/22/2023 12:15 PM CDT Office Visit [facility] Maternal Medicine [place] [address] [place] [phone] Luz Elena Betts MD [address] [place] [address] 09/29/2023 11:45 AM CDT Appointment [facility] Maternal Medicine [place] [address] [place] [phone] Luz Elena Betts MD [address] [place] [address] 09/29/2023 12:15 PM CDT Office Visit [facility] Medicine [facility] [address] [place] [address] Luz Elena Betts MD [address] [place] [address] 10/06/2023 11:[address] [facility] Medicine [place] [address] [place] [phone] Luz Elena Betts MD [address] [place] [address] 10/06/2023 12:15 PM CDT Office Visit [facility] Medicine [place] [address] [place] [phone] Luz Elena Betts MD [address] [place] [address] documented as of this encounter Procedures Procedure Name Priority Date/Time Associated Diagnosis Comments M BPP SINGLE Routine 07/30/2023 3:46 PM CDT Polyhydramnios affecting documented in this encounter Results * MFM BPP Single (07/30/2023 3:46 PM CDT) Anatomical [...] ? Study Date: ??07/30/2023 3:27pm Pat. NO: ??[id number] ?Referring ??MD: HOMAR MEDRANO Site: ??[facility] ? Distribution Estimator: Lashonda Barlow RDMS : ??1985 ?Age: ?? [...] with MFM and once with PCP in [place]. Recommend delivery for GDM A2 and pregestational: ? Well controlled: 39l2y-89g8b ? Poorly controlled: 88s5f-22a4w ? Failed in-hospital attempt at control: 67u0w-53l6g Thank you for the opportunity to participate in the care of this patient. If you have questions regarding today's evaluation or if we can be of further service, please contact the Maternal- Medicine Center. anomalies may be present but not detected Procedure Note Bassem Pathak MD - 07/30/2023 BPP ----- Pat. Name: GRACECASTRO GAMBLEL Study Date: 07/30/2023 3:27pm Pat. NO: [id number] Referring MD: HMOAR MEDRANO Site: [facility] Distribution Estimator: Lashonda Barlow RDMS : 1985 Age: 37 ----- INDICATION ----- Advanced maternal age. Type 2 diabetes - on insulin History of gestational hypertension. Mild polyhydramnios. METHOD ----- Transabdominal ultrasound examination. View: Sufficient ----- Gonzalez . Number of fetuses: 1 DATING ----- DateDetailsGkiersten. age [facility] LMP 9 w + 5 d 10/10/2023 Prior assessment [...] BPP, once here with MFM and once withPCP in [place]. Recommend delivery for GDM A2 and pregestational: ? Well controlled: 49c6y-69q1f ? Poorly controlled: 12o2o-90a7l ? Failed in-hospital attempt at control: 50x9z-50o4z Thank you for the opportunity to participate [...] amniotic fluid volume appears normal. Cristiane WILLG MFM US ORDERABLE S documented in this encounter Visit Diagnoses Diagnosis Polyhydramnios affecting documented in this encounter Care Teams Labourers Relationship Specialty Start Date End Date Tre Ba MD [facility] [facility] [address] [place] [address] PCP - General airborne operations 01/15/22 documented as of this encounter
--- OUTSIDE RECORDS SUMMARY | 2023-09-04 07:33 | XMS_ITS | Encounter Summary ---
Author Organization [place] Address [facility] [place] [address] Care Team Providers Care Co Founder And Ceo Name Role Phone Tre Ba MD Primary Care Provide r Reason for Referral * Diagnostic Imaging Ultrasound (Routine) - Pending Review Specialty Diagnoses / Procedures Referred By Contac t Referred To Contact Radiology. Diagnoses Pre-existing type 2 diabetes mellitus during in third trimester Procedures [facility] Bassem Dhillon MD [address] [address] Referral ID Status Reason Start Date Expiration Date V isits Requested Visits Authorized [id number] Pending Review 07/30/2023 07/29/2024 1 1 * Diagnostic Imaging Ultrasound (Routine) - Pending Review Specialty Diagnoses / Procedures Referred By Contac t Referred To Contact Radiology. Diagnoses Pre-existing type 2 diabetes mellitus during in third trimester Procedures Bassem Ackerman MD [address] [address] Referral ID Status Reason Start Date Expiration Date V isits Requested Visits Authorized [id number] Pending Review 07/30/2023 07/29/2024 1 1 * Diagnostic Imaging Ultrasound (Routine) - Pending Review Specialty Diagnoses / Procedures Referred By Contac t Referred To Contact Radiology. Diagnoses Pre-existing type 2 diabetes mellitus during in third trimester Procedures [facility] Bassem Dhillon MD [address] [place] [address] Referral ID Status Reason Start Date Expiration Date V isits Requested Visits Authorized [id number] Pending Review 07/30/2023 07/29/2024 1 1 Reason for Visit * Reason Comments Ultrasound BPP: DM2 - poorly co ntrolled Encounter Details Date Type Department Care Team (Late st Contact Info) Description 07/30/2023 4:00 PM CDT Office Visit [facility] Maternal Medicine Center [address] [place] [address] Bassem Pathak MD [address] [place], [place] [id number] Pre-existing type 2 diabetes mellitus during in [...] 07/30/2023 4:00 PM CDT Patient presents to [facility] for BPP at 29w5d due to DM2 - poorly controlled. Positive movement. Denies LOF, vaginal bleeding or cramping/contractions. SBAR given to TREVOR GRESHAM, see their note in Epic. documented in this encounter Plan of Treatment Upcoming Encounters Date Type Department Care Team (Late st Contact Info) Description 09/08/2023 11:[address] [facility] Maternal Medicine [place] [address] [facility] [address] [place] [phone] Bassem Pathak MD [address] [place], [place] [address] Mitch Jernigan MD [address] [place], [place] [address] 09/08/2023 12:15 PM CDT Office Visit [facility] Maternal Medicine [place] [address] [facility] [address] [place] [phone] Bassem Pathak MD [address] [place], [place] [address] [phone] Mitch Jernigan MD [address] [place], [place] [address] 09/15/2023 1:[address] [facility] Maternal Medicine [place] [address] [place] [address] [phone] Mitch Jernigan MD [address] [place], [place] [address] 09/15/2023 2:00 PM CDT Office [facility] [place] [address] [facility] [address] [place] [phone] Mitch Jernigan MD [address] [place] [address] 09/22/2023 11:[address] [facility] Maternal Medicine Center [place] [address] [place] [address] Luz Elena Betts MD [address] [place] [address] 09/22/2023 12:15 PM CDT Office Visit [facility] Maternal Medicine [place] [address] [place] [phone] Luz Elena Betts MD [address] [place] [address] 09/29/2023 11:[address] [facility] Maternal Medicine [place] [address] [place] [phone] Luz Elena Betts MD [address] [place] [address] 09/29/2023 12:15 PM CDT Office Visit [facility] Maternal Medicine [place] [address] [place] [phone] Luz Elena Betts MD [address] [place] [address] 10/06/2023 11:[address] [facility] Maternal Medicine Center [place] [address] [place] [phone] Luz Elena Betts MD [address] [place] [address] 10/06/2023 12:15 PM CDT Office Visit [facility] Maternal Medicine [facility] [address] [place] [address] Luz Elena Betts MD [address] [place] [address] Scheduled Orders Name Type Priority Associated Diagnoses Orde r Schedule [facility] BPP Single Imaging Routine Pre-existing type 2 diabetes mellitus during in third trimester Expected: 09/11/2023 (Approximate), Expires: 05/29/2024 documented as of this encounter Results * [facility] BPP Single (09/02/2023 12:22 PM CDT) Anatomical Region Laterality Modality Ultrasound 09/02/2023 11:5 8 AM CDT Impressions 09/02/2023 4:11 PM CDT IMPRESSION ----- 1) Gonzalez intrauterine at 34w 4d gestational age. 2) The BPP is reassuring. 3) Mild polyhydramnios was again noted. Narrative 09/02/2023 4:11 PM CDT ?BPP ----- Pat. Name: SHEBA WILDER ? Study Date: ??09/02/2023 11:58am Pat. NO: ??[id number] ?Referring ??MD: HOMRA MEDRANO Site: ? Duct Maker: Lashonda Barlow RDMS : ??1985 ?Age: ?? [...] surveillance with twice weekly BPP, alternating between [facility] and [facility]. Return to primary provider for continued care. [...] WILDER Study Date: 09/02/2023 11:58am Pat. NO: [id number] Referring MD: HOMAR MEDRANO Site: Duct Maker: Lashonda Barlow RDMS : 1985 Age: 37 ----- INDICATION ----- Type 2 diabetes - on insulin Advanced maternal age Mild polyhydramnios METHOD ----- Transabdominal ultrasound examination. View: Sufficient ----- Gonzaelz . Number of fetuses: 1 DATING ----- [...] Continue surveillance with twice weekly [facility]. Return to primary provider for continued care. [...] polyhydramnios was again noted. Bassem Pathak MD [facility] US ORDERABLE S * [facility] BPP Single (08/25/2023 12:05 PM CDT) Anatomical Region Laterality Modality Ultrasound 08/25/2023 11:4 8 AM CDT Impressions 08/25/2023 1:03 PM CDT IMPRESSION ----- 1) Gonzalez intrauterine at 33w 3d gestational age. 2) The BPP is reassuring. 3) Mild polyhydramnios is noted. Narrative 08/25/2023 1:03 PM CDT ?BPP ----- Pat. Name: SHEBA WILDER ? Study Date: ??08/25/2023 11:48am Pat. NO: ??[id number] ?Referring ??MD: HOMAR MEDRANO Site: ? Duct Maker: Micha Gage RDMS : ??1985 ?Age: ?? 37 ----- INDICATION ----- Type 2 diabetes - on insulin Mild polyhydramnios METHOD ----- Transabdominal ultrasound examination. View: Sufficient ----- Gonzalez . Number of fetuses: 1 DATING ----- ? Date ?Details ?Gest. age ?BROOKE LMP ?01/03/2023 ?33 w + 3 d ? 10/10/2023 Stated BOROKE ? 33 w + 3 d ? [...] surveillance with twice weekly BPP, alternating between [facility] and [facility]. Return to primary provider for [...] WILDER Study Date: 08/25/2023 11:48am Pat. NO: [id number] Referring MD: HOMAR MEDRANO Site: Duct Maker: Micha Gage RDMS : 1985 Age: 37 [...] of AF: Polyhydramnios, Mild MVP 8.5 cm. AELX 26.2 cm. Q1 1.9 cm, Q2 7.9 cm, Q3 8.9 cm, Q4 7.5 cm BIOPHYSICAL PROFILE ----- 2: breathing movements 2: Gross body movements 2: tone 2: Amniotic fluid volume 8/8 Biophysical profile score Interpretation: normal RECOMMENDATION ----- We discussed the findings on today's ultrasound with the patient. Continue surveillance with twice weekly [facility]. Return to primary provider for [...] reassuring. 3) Mild polyhydramnios is noted. Bassem WILLG [facility] US ORDERABLE S documented in this encounter Visit Diagnoses Diagnosis Pre-existing type 2 diabetes mellitus during in third trimester- Primary Pre-existing type 2 diabetes mellitus during in third trimester Pre-existing type 2 diabetes mellitus during in third trimester documented in this encounter Care Teams Co Founder And Ceo Relationship Specialty Start Date End Date Tre Ba MD [address] [address] PCP - General shoe ironer 01/15/22 documented as of this encounter
--- OUTSIDE RECORDS SUMMARY | 2023-09-04 07:33 | XMS_ITS | Encounter Summary ---
Author Organization [place] Address [address] [facility] [place] [address] Care Team Providers Care Hotel Maid Name Role Phone Tre Ba MD Primary Care Provide r Reason for Visit * Reason Onset Date Comments Care 07/29/2023 Encounter Details Date Type Department Care Team (Late st Contact Info) Description 07/29/2023 Telephone [facility] Maternal Medicine Center [place] [address] [facility] [address] [place] [address] Carrie Smith, RN Care (/) [...] Smith RN - 07/29/2023 12:07 PM CDT [facility] called to discuss coordinating care between [facility] clinic and [facility]. Plan for [facility] to do once weekly NSTs in the beginning of the week starting at 32 weeks and [facility] will do BPPs toward the end of the week starting at 32 weeks. [facility]. Pt will need to schedule more weekly BPPs after 08/21/23. Carrie Smith, RN on 07/29/2023 at 12:11 PM documented in this encounter Plan of Treatment Upcoming Encounters Date Type Department Care Team (Late st Contact Info) Description 09/08/2023 11:45 AM CDT Appointment [facility] Maternal Medicine [place] [address] [facility] [address] [place] [phone] Bassem Pathak MD [address] [place], [place] [address] [phone] Mitch Jernigan MD [address] [place], [place] [address] 09/08/2023 12:15 PM CDT Office Visit [facility] Medicine [place] [address] [facility] [address] [place] [phone] Bassem Pathak MD [address] [place], [place] [address] [phone] Mitch Jernigan MD [address] [place], [place] [address] 09/15/2023 1:30 PM CDT Appointment [facility] Maternal Medicine [place] [address] [facility] [address] [place] [phone] Mitch Jernigan MD [address] [place], [place] [address] 09/15/2023 2:00 PM CDT Office Visit [facility] Maternal Medicine [place] [address] [facility] [address] [place] [phone] Mitch Jernigan MD [address] [place] [address] 09/22/2023 11:45 AM CDT Appointment [facility] Maternal Medicine Center [place] [address] [place] [address] Luz Elena Betts MD [address] [place] [address] 09/22/2023 12:15 PM CDT Office Visit [facility] Maternal Medicine [place] [address] [place] [phone] Luz Elena Betts MD [address] [place] [address] 09/29/2023 11:45 AM CDT Appointment [facility] Maternal Medicine [place] [address] [place] [phone] Luz Elena Betts MD [address] [place] [address] 09/29/2023 12:15 PM CDT Office Visit [facility] Maternal Medicine [place] [address] [place] [phone] Luz Elena Betts MD [address] [place] [address] 10/06/2023 11:45 AM CDT Appointment [facility] Maternal Medicine [place] [address] [place] [phone] Luz Elena Betts MD [address] [place] [address] 10/06/2023 12:15 PM CDT Office Visit [facility] Maternal Medicine [facility] [address] [facility] [address] [place] [address] Luz Elena Betts MD [address] [facility] [address] [place], [place] [address] documented as of this encounter Visit Diagnoses Not on filedocumented in this encounter Care Teams Hotel Maid Relationship Specialty Start Date End Date Tre Ba MD [facility] [address] [facility] [address] [place], [place] [id number] PCP - General kettle chipper 01/15/22 documented as of this encounter
--- OUTSIDE RECORDS SUMMARY | 2023-09-04 07:33 | XMS_ITS | Encounter Summary ---
Author Organization [place] Address [address] [place] [address] Care Team Providers Care Teletype Operator Name Role Phone Tre Ba MD Primary Care Provide r Encounter Details Date Type Department Care Team (Late st Contact Info) Description 07/24/2023 2:40 PM CDT Lab [facility] [address] [place] [address] Cristiane Patel MD [address] [place] [address] Multigravida of advanced maternal age [...] [facility] Maternal Medicine Center [place] [address] [facility] [address] [place] [address] Bassem Pathak MD [address] [place], [place] [address] Mitch Jernigan MD [address] [place] [address] 09/08/2023 12:15 PM CDT Office Visit [facility] Maternal Medicine [place] [address] [place] [phone] Bassem Pathak MD [address] [place] [address] Mitch Jernigan MD [address] [place] [address] 09/15/2023 1:[address] [facility] Maternal Medicine [place] [address] [place] [phone] Mitch Jernigan MD [address] [place] [address] 09/15/2023 2:00 PM CDT Office Visit [facility] Maternal Medicine [place] [address] [place] [phone] Mitch Jernigan MD [address] [place] [address] 09/22/2023 11:[address] [facility] Maternal Medicine [place] [address] [place] [phone] Luz Elena Betts MD [address] [place] [address] 09/22/2023 12:15 PM CDT Office Visit [facility] Maternal Medicine [place] [address] [place] [phone] Luz Elena Betts MD [address] [place] [address] 09/29/2023 11:45 AM CDT Appointment [facility] Medicine [place] [address] [facility] [address] [place] [phone] Luz Elena Betts MD [address] [place] [address] 09/29/2023 12:15 PM CDT Office Visit [facility] Medicine [place] [address] [facility] [address] [place] [phone] Luz Elena Betts MD [address] [place] [address] 10/06/2023 11:45 AM CDT Appointment [facility] Medicine [place] [address] [facility] [address] [place] [phone] Luz Elena Betts MD [address] [place] [address] 10/06/2023 12:15 PM CDT Office Visit [facility] Medicine [place] [address] [facility] [address] [place] [phone] Luz Elena Betts MD [address] [place] [address] documented as of this encounter Procedures Procedure Name Priority Date/Time Associated Diagnosis Comments MYRIAD NON-INVASIVE SCREENING PREQUEL Routine 07/24/2023 2:49 PM CDT Multigravida of advanced maternal age in third trimester documented in this encounter Results * Myriad Non-Invasive Screening???Prequel (07/24/2023 2:49 PM CDT) See Scanned Result [employer] NON-INVASIVE SCREENING PREQUEL-Scann ed 08/02/2023 7:16 PM CDT [facility] Blood STRUCTURE OF RIGHT UPPER LIMB / Unknown Venipuncture / Unknown 07/24/2023 2:49 PM CDT 07/24/2023 2:49 PM CDT Laura Abdi [facility] - BLOOD ORDERABL ES [facility] [address] [place] [address], [facility] [phone] documented in this encounter Visit Diagnoses Diagnosis Multigravida of advanced maternal age in third trimester documented in this encounter Care Teams Teletype Operator Relationship Specialty Start Date End Date Tre Ba MD [facility] [address] [address] PCP - General order entry administrator 01/15/22 documented as of this encounter
--- OUTSIDE RECORDS SUMMARY | 2023-09-04 07:33 | XMS_ITS | Encounter Summary ---
Author Organization [place] Address [address] [place] [address]. [place] [address] Care Team Providers Care Emu Farmer Name Role Phone Tre Ba MD Primary Care Provide r Encounter Details Date Type Department Care Team (Late Contact Info) Description 07/24/2023 Medical Correspondence [facility] Info Mgmt [facility] [address] [place] [address] Scan, Non-Provider Social History Tobacco [...] CDT Appointment [facility] Maternal Medicine Center [place] [address] [place] [address] Bassem Pathak MD [address] [place] [address] Mitch Jernigan MD [address] [place], [place] [address] 09/08/2023 12:15 PM CDT Office Visit [facility] Maternal Medicine [place] [address] [place] [phone] Bassem Pathak MD [address] [place] [address] Mitch Jernigan MD [address] [place] [address] 09/15/2023 1:30 PM CDT Appointment [facility] Maternal Medicine [place] [address] [place] [phone] Mitch Jernigan MD [address] [place], [place] [address] 09/15/2023 2:00 PM CDT Office Visit [facility] Maternal Medicine [place] [address] [place] [phone] Mitch Jernigan MD [address] [place] [address] 09/22/2023 11:45 AM CDT Appointment [facility] Maternal Medicine [place] [address] [place] [phone] Luz Elena Betts MD [address] [place], [place] [address] 09/22/2023 12:15 PM CDT Office Visit [facility] Maternal Medicine [place] [address] [place] [phone] Luz Elena Betts MD [address] [place], [place] [address] 09/29/2023 11:45 AM CDT Appointment [facility] Maternal Medicine [facility] [address] [place] [address] Luz Elena Betts MD [address] [place] [address] 09/29/2023 12:15 PM CDT Office Visit [facility] Maternal Medicine [place] [address] [place] [phone] Luz Elena Betts MD [address] [place] [address] 10/06/2023 11:45 AM CDT Appointment [facility] Medicine [place] [address] [place] [phone] Luz Elena Betts MD [address] [place] [address] 10/06/2023 12:15 PM CDT Office Visit [facility] Medicine [place] [address] [place] [phone] Luz Elena Betts MD [address] [place] [address] documented as of this encounter Visit Diagnoses Not on filedocumented in this encounter Care Teams Emu Farmer Relationship Specialty Start Date End Date Tre Ba MD [facility] [address] [facility] [address] [place] [address] PCP - General prosthetic dentist 01/15/22 documented as of this encounter
--- OUTSIDE RECORDS SUMMARY | 2023-09-04 07:33 | XMS_ITS | Encounter Summary ---
Author Organization [place] Address [address] [place] [address] Care Team Providers Care Reproduction Technician Name Role Phone Tre aB MD Primary Care Provide r Encounter Details [...] Info) Description 09/08/2023 11:45 AM CDT Appointment [facility] Maternal Medicine [facility] [address] [facility] [address] [place] [address] Bassem Pathak MD [address] [place], [place] [address] Mitch Jernigan MD [address] [place], [place] [address] 09/08/2023 12:15 PM CDT Office Visit [facility] Maternal Medicine [facility] [address] [facility] [address] [place] [address] Bassem Pathak MD [address] [place] [address] Mitch Jernigan MD [address] [place] [address] 09/15/2023 1:30 PM CDT Appointment [facility] Maternal Medicine [place] [address] [place] [phone] Mitch Jernigan MD [address] [place] [address] 09/15/2023 2:00 PM CDT Office Visit [facility] Maternal Medicine [place] [address] [place] [phone] Mitch Jernigan MD [address] [place] [address] 09/22/2023 11:45 AM CDT Appointment [facility] Maternal Medicine [place] [address] [place] [phone] Luz Elena Betts MD [address] [place] [address] 09/22/2023 12:15 PM CDT Office Visit [facility] Maternal Medicine [place] [address] [place] [phone] Luz Elena Betts MD [address] [place] [address] 09/29/2023 11:45 AM CDT Appointment [facility] Maternal Medicine [place] [address] [place] [address] Luz Elena Betts MD [address] [place] [address] 09/29/2023 12:15 PM CDT Office Visit [facility] Medicine [facility] [address] [facility] [address] [place] [address] Luz Elena Betts MD [address] [place] [address] 10/06/2023 11:45 AM CDT Appointment [facility] [place] [address] [facility] [address] [place] [phone] Luz Elena Betts MD [address] [place] [address] 10/06/2023 12:15 PM CDT Office Visit [facility] [place] [address] [facility] [address] [place] [phone] Luz Elena Betts MD [address] [place] [address] documented as of this encounter Visit Diagnoses Not on filedocumented in this encounter Care Teams Reproduction Technician Relationship Specialty Start Date End Date Tre Ba MD [facility] TERRY PONCE [facility] [address] [place] [address] PCP - General plate shop helper 01/15/22 documented as of this encounter
== END 2023-09-04 07:30 | disposition home or self-care (01) ==
PROVIDERS: Visit Provider Obstetrics & Gynecology
DX: O24.419 Gestational diabetes mellitus in pregnancy, unspecified control (principal)
CPT/HCPCS: 76819; 87081; 87653

== ENCOUNTER 2023-09-07 13:16 | Outpatient (RCR) | payer MEDICAID, SELFPAY ==
--- NOTE | 2023-09-01 13:40 | URNOTE ---
Prior auth is not required for Ye ([id number]) per [facility] Fee Schedule.
[2023-09-05 14:20] VITALS: BP 149/86; PULSE 85; RESP 16; TEMP 36.3; O2SAT 99
[2023-09-07] MEDS: IRON SUCROSE COMPLEX 200 MG in 0.9 % SODIUM CHLORIDE 100 ml 100 ML 440 MG IVPB (13:56)
[2023-09-07 14:18] VITALS: BP 148/92; PULSE 80; RESP 16; O2SAT 97
[2023-09-07 14:53] VITALS: BP 126/83; PULSE 83; RESP 14; TEMP 36.3; O2SAT 98
== END 2024-03-05 23:59 | disposition home or self-care (01) ==
LOC: CCIC 13:16
PROVIDERS: Visit Provider Obstetrics & Gynecology
DX: O99.019 Anemia complicating pregnancy, unspecified trimester (principal)
CPT/HCPCS: 96374; J1756

== ENCOUNTER 2023-09-11 07:25 | Outpatient (CLI) | payer MEDICAID, SELFPAY ==
--- NOTE | 2023-09-11 07:15 | CRLHL7_ITS ---
For Patients: As a result of the Century Cures Act, medical imaging exams and procedure reports are released immediately into your electronic medical record. You may view this report before your referring provider. If you have questions, please contact your health care provider. INDICATION: Type 2 diabetes TECHNIQUE: Ultrasound OB pelvis transabdominal. Real-time hernandez-scale imaging of the fetus was performed with color Doppler and spectral Doppler analysis of the umbilical artery without stress testing. COMPARISON: 09/04/2023 FINDINGS: Clinical Age: 35 weeks 6 days (BROOKE 10/10/2023) Sonographic imaging demonstrates a single living intrauterine gestation. Fetus demonstrates a regular cardiac rate of 138 beats per minute. Fetus has a cephalic orientation. The placenta lies anterior. Amniotic fluid volume appears normal with a MVP of 6.9 cm. breathing movements, motion, and tone were all observed. IMPRESSION: Single viable intrauterine with a biophysical profile 09/30. Dictated by Srikanth Enriquez MD @ 09/11/2023 7:59:15 AM (Electronically Signed)
--- OUTSIDE RECORDS SUMMARY | 2023-09-11 07:27 | XMS_ITS | Encounter Summary ---
Author Organization [place] Address [address] [place] [address] Care Team Providers Care Cra Name Role Phone Tre Ba MD Primary Care Provide r Bassem Pathak MD Unavailable [phone] Encounter Details Date Type Department Care Team [...] Care Team (Late st Contact Info) Description 09/15/2023 1:30 PM CDT Appointment [facility] [place] [address] [facility] [address] [place] [address] Mitch Jernigan MD [address] [place] [address] 09/15/2023 2:00 PM CDT Office Visit [facility] [place] [address] [place] [phone] Mitch Jernigan MD [address] [place] [address] 09/17/2023 11:00 AM CDT Appointment [facility] [address] [place] [address] Cristiane Patel MD [address] [place] [address] 09/22/2023 11:45 AM CDT Appointment [facility] Maternal Medicine [facility] [address] [place] [phone] Rachel Reyna MD [address] [place] [address] 09/22/2023 12:15 PM CDT Office Visit [facility] [place] [address] [place] [phone] Rachel Reyna MD [address] [place] [address] 09/29/2023 11:45 AM CDT Appointment [facility] [place] [address] [place] [phone] Luz Elena Betts MD [address] [place] [address] 09/29/2023 12:15 PM CDT Office Visit [facility] [place] [address] [place] [phone] Luz Elena Betts MD [address] [place] [address] 10/06/2023 11:45 AM CDT Appointment [facility] Medicine [facility] [address] [place] [phone] Luz Elena Betts MD [address] [place], [place] [address] 10/06/2023 12:15 PM CDT Office Visit [facility] Maternal Medicine [facility] [address] [place] [phone] Luz Elena Betts MD [address] [place], [place] [id number] documented as of this encounter Visit Diagnoses Not on filedocumented in this encounter Care Teams Cra Relationship Specialty Start Date End Date Tre Ba MD [address] [place] [address] [address] [place] [address] PCP - General director of cardiac rehabilitation 01/15/22 Bassem Pathak MD [address] [place], [place] [id number] Assigned OBGYN Provider 08/16/23 documented as of this encounter
--- OUTSIDE RECORDS SUMMARY | 2023-09-11 07:27 | XMS_ITS | Clinical Summary ---
Author Organization [place] Address [address] [place] [address] Care Team Providers Care Life Insurance Actuary Name Role Phone Tre Ba MD Primary Care Provide r Bassem Pathak MD Unavailable [phone] Allergies No known active allergies Medications Medication [...] Encounters Date Type Department Care Team Description 09/08/2023 12:15 PM CDT Office Visit [facility] M[facility] [place] [address] [place] [phone] Bassem Pathak MD Rauk, Phillip Neil, MD Pre-existing type 2 diabetes mellitus during in third trimester (Primary Dx) 09/08/2023 11:45 AM CDT - 09/08/2023 11:59 PM CDT Hospital Encounter [facility] Maternal Medicine [facility] [address] [place] [phone] Bassem Pathak MD Rauk, Phillip Neil, MD Pre-existing type 2 diabetes mellitus during in third trimester Discharge Disposition: Home or Self Care 09/08/2023 Travel 09/02/2023 12:15 PM CDT Office Visit [facility] [address] [place] [address] Luz Elena Betts MD Pre-existing type 2 diabetes mellitus during in third trimester (Primary Dx) 09/02/2023 11:45 AM CDT - 09/02/2023 11:59 PM CDT Hospital Encounter [facility] Maternal Medicine [place] [address] [place] [address] Luz Elena Betts MD Pre-existing type 2 diabetes mellitus during in third trimester Discharge Disposition: Home or Self Care 09/02/2023 Travel 08/26/2023 Telephone [facility] [address] [phone] Cheri Peters LPN 08/25/2023 12:15 PM CDT Office Visit [facility] [place] [address] [place] [address] Bassem Pathak MD Yamamura, Yasuko, MD Pre-existing type 2 diabetes mellitus during in third trimester (Primary Dx); Polyhydramnios in third trimester complication, single or unspecified fetus 08/25/2023 11:45 AM CDT - 08/25/2023 11:59 PM CDT Hospital Encounter [facility] Maternal Medicine [facility] [address] [place] [address] Bassem Pathak MD Yamamura, Yasuko, MD Pre-existing type 2 diabetes mellitus during in third trimester Discharge Disposition: Home or Self Care 08/25/2023 Travel 08/21/2023 12:15 PM CDT Office Visit [facility] [address] [place] [address] Cristiane Patel MD Rauk, Mitch Walker MD Pre-existing type 2 diabetes mellitus during in third trimester (Primary Dx); Polyhydramnios affecting 08/21/2023 11:45 AM CDT - 08/21/2023 11:59 PM CDT Hospital Encounter [facility] Maternal Medicine [facility] [address] [place] [address] Cristiane Patel MD Rauk, Mitch Walker MD Polyhydramnios affecting Discharge Disposition: Home or Self Care 08/21/2023 Travel 08/14/2023 4:00 PM CDT Office Visit [facility] Maternal Medicine [facility] [address] [place] [address] Cristiane Patel MD Rauk, Mitch Walker MD Pre-existing type 2 diabetes mellitus during in third trimester (Primary Dx); Polyhydramnios affecting 08/14/2023 3:30 PM CDT - 08/14/2023 11:59 PM CDT Hospital Encounter [facility] Maternal Medicine [facility] [address] [place] [address] Cristiane Patel MD Rauk, Mitch Walker MD Polyhydramnios affecting Discharge Disposition: Home or Self Care 08/14/2023 Travel 08/03/[address] [facility] Maternal Medicine [place] [address] [place] [phone] Laura Abdi, CONCEPCION Results (Low Risk Expanded NIPT) 07/30/2023 4:00 PM CDT Office Visit [facility] Maternal Medicine [address] [place] [phone] Bassem Pathak MD Pre-existing type 2 diabetes mellitus during in third trimester (Primary Dx) 07/30/2023 3:25 PM CDT - 07/30/2023 11:59 PM CDT Hospital Encounter [facility] Maternal Medicine [place] [address] [place] [phone] Bassem Pathak MD Polyhydramnios affecting Discharge Disposition: Home or Self Care 07/30/2023 Travel 07/29/[address] [facility] Maternal Medicine [facility] [address] [place] [phone] Carrie Smith, JD Care (/) 07/24/2023 2:40 PM CDT Lab [facility] [address] [place] [phone] Cristiane Patel MD Multigravida of advanced maternal age in third trimester 07/24/2023 2:00 PM CDT Office Visit [facility] [address] [place] [phone] Cristiane Patel MD with type 2 diabetes mellitus in third trimester (Primary Dx); Polyhydramnios affecting 07/24/2023 12:50 PM CDT - 07/24/2023 11:59 PM CDT Hospital Encounter [facility] Maternal Medicine [facility] [address] [facility] [address] [place] [phone] Cristiane Patel MD related condition, antepartum Discharge Disposition: Home or Self Care 07/24/2023 12:45 PM CDT Office Visit [facility] [address] [place] [phone] Cristiane Patel MD Daykin, Emily C, GC Multigravida of advanced maternal age in third trimester (Primary Dx); related condition, antepartum 07/24/2023 Medical Correspondence [facility] [address] [facility] [place] [address] Scan, Non-Provider 07/24/2023 Travel 07/08/2023 PRE VISIT [facility] [address] [place] [phone] Melissa Aguiar RN Ultrasound ([id number]) 07/03/2023 Medical Correspondence [facility] Info Mgmt Srv[facility] [address] [facility] [place] [address] Scan, Non-Provider 07/03/[address] [facility] Maternal Medicine [facility] [address] [place] [address] Homar Medrano APRN [employer] related condition, antepartum (Primary Dx) from Last [...] Comments Blood Pressure 112/59 01/20/2022 11:00 PM FENCE POST DRIVER Pulse 80 01/20/2022 11:00 PM FENCE POST DRIVER Temperature 37.1 ??C (98.7 ??F) 01/20/2022 10:[address] Respiratory Rate 16 01/20/2022 11:00 PM FENCE POST DRIVER Oxygen Saturation 100% 01/20/2022 11:30 PM FENCE POST DRIVER Inhaled Oxygen Concentration - - Weight 76.4 kg (168 lb 6.4 oz) 01/20/2022 4:42 P M FENCE [employer] DRIVER Height 154.9 cm (5' 1) 01/20/2022 4:42 PM FENCE POST DRIVER Body Mass Index 31.82 01/20/2022 4:42 PM FENCE POST DRIVER Plan of Treatment Upcoming Encounters Date Type Department Care Team (Late st Contact Info) Description 09/15/2023 1:[address] [facility] Maternal Medicine [facility] [address] [facility] [address] [place] [address] Mitch Jernigan MD [address] [place] [address] 09/15/2023 2:00 PM CDT Office Visit [facility] Maternal Medicine Center [place] [address] [place] [phone] Mitch Jernigan MD [address] [place] [address] 09/17/2023 11:00 AM CDT Appointment [facility] [address] [place] [phone] Cristiane Patel MD [address] [place] [address] 09/22/2023 11:[address] [facility] Maternal Medicine [place] [address] [place] [phone] Rachel Reyna MD [address] [place] [address] 09/22/2023 12:15 PM CDT Office Visit [facility] Maternal Medicine [place] [address] [place] [phone] Rachel Reyna MD [address] [place] [address] 09/29/2023 11:[address] [facility] M[facility] Medicine [facility] [place] [address] [place] [phone] Luz Elena Betts MD [address] [place] [address] 09/29/2023 12:15 PM CDT Office Visit [facility] Maternal Medicine [facility] [address] [place] [address] Luz Elena Betts MD [address] [place] [address] 10/06/2023 11:[address] [facility] Maternal Medicine [facility] [address] [place] [phone] Luz Elena Betts MD [address] [place], [place] [address] 10/06/2023 12:15 PM CDT Office Visit [facility] Maternal Medicine [facility] [address] [place] [phone] Luz Elena Betts MD [address] [place] [address] Health Maintenance Due Date Last Done Comments [...] Procedure Name Priority Date/Time Associated Diagnosis Comments [facility] SINGLE Routine 09/08/2023 12:22 PM CDT Pre-existing type 2 diabetes mellitus during in third trimester [facility] SINGLE Routine 09/02/2023 12:22 PM CDT Pre-existing type 2 diabetes mellitus during in third trimester [facility] SINGLE Routine 08/25/2023 12:05 PM CDT Pre-existing type 2 diabetes mellitus during in third trimester [facility] SINGLE F/U Routine 08/21/2023 12:39 PM CDT Polyhydramnios affecting [facility] SINGLE Routine 08/14/2023 3:54 PM CDT Polyhydramnios affecting [facility] SINGLE Routine 07/30/2023 3:46 PM CDT Polyhydramnios affecting [facility] NON-INVASIVE SCREENING PREQUEL Routine 07/24/2023 2:49 PM CDT Multigravida of advanced maternal age in third trimester [facility] COMPREHENSIVE SINGLE Routine 07/24/2023 2:13 PM CDT related condition, antepartum from Last 3 Months Results * [facility] Single (09/08/2023 12:22 PM CDT) Only the most recent of5 resultswithin the time period is included. Anatomical Region Laterality Modality Ultrasound 09/08/2023 12:0 1 PM CDT Impressions 09/08/2023 12:24 PM CDT IMPRESSION ----- 1) Mild polyhydramnios. 2) BPP is reassuring. Narrative 09/08/2023 12:24 PM CDT ?BPP ----- Pat. Name: JACK EDWARDS ? Study Date: ??09/08/2023 12:01pm Pat. NO: ??[id number] ?Referring ??MD: HOMAR MEDRANO Site: ? Duplicate Maker: Gemma Pinzon RDMS : ??1985 ?Age: ?? 37 ----- INDICATION ----- Type 2 diabetes - on insulin Advanced maternal age Mild polyhydramnios METHOD ----- Transabdominal ultrasound examination. View: Sufficient ----- Gonzalez . Number of fetuses: 1 DATING ----- ? Date ?Details ?Gest. age ?BROOKE LMP ?01/03/2023 ?35 w + 3 d ? 10/10/2023 Stated BROOKE ? 35 w + 3 d ? 10/10/2023 Previous U/S ?03/03/2023 ?GA, GA 8 w + 3 d ? 35 w + 3 d ? 10/10/2023 Assigned dating ?based on the LMP, selected on 09/08/2023 ? 35 w + 3 d ? 10/10/2023 GENERAL EVALUATION ----- Cardiac activity present. FHR 134 bpm. movements: visualized. Presentation: cephalic Placenta: Anterior Umbilical cord: previously studied AMNIOTIC FLUID ASSESSMENT ----- Amount of AF: Mild, Polyhydramnios MVP 8.2 cm. ALEX 25.3 cm. Q1 6.9 cm, Q2 8.2 cm, Q3 6.3 cm, Q4 3.9 cm BIOPHYSICAL PROFILE ----- 2: breathing movements 2: Gross body movements 2: tone 2: Amniotic fluid volume 8/8 Biophysical profile score Interpretation: normal RECOMMENDATION ----- We discussed the findings on today's ultrasound with the patient. The patient is scheduled for a BPP at your office weekly and at [facility] weekly. Return to primary provider for continued care. Thank-you for the opportunity to participate in the care of this patient. If you have questions regarding today's evaluation or if we can be of further service, please contact the Maternal- Medicine Center. anomalies may be present but not detected Procedure Note Mitch Jernigan MD - 09/08/2023 BPP ----- Pat. Name: JACK EDWARDS Study Date: 09/08/2023 12:01pm Pat. NO: [id number] Referring MD: HOMAR MEDRANO Site: Duplicate Maker: Gemma Pinzon RDMS : 1985 Age: 37 ----- INDICATION ----- Type 2 diabetes - on insulin Advanced maternal age Mild polyhydramnios METHOD ----- Transabdominal ultrasound examination. View: Sufficient ----- [place] . Number of fetuses: 1 DATING ----- DateDetailsGest. age BROOKE LMP w + 3 d 10/10/2023 Stated EDD35 w + 3 d 10/10/2023 Previous U/S 03/03/2023 GA, GA8 w + 3 d35 w + 3 d 10/10/2023 Assigned dating based on the LMP, selected on w + 3 d 10/10/2023 GENERAL EVALUATION ----- Cardiac activity present. FHR 134 bpm. movements: visualized.Presentation: cephalic Placenta: Anterior Umbilical cord: previously studied AMNIOTIC FLUID ASSESSMENT ----- Amount of AF: Mild, Polyhydramnios MVP 8.2 cm. ALEX 25.3 cm. Q1 6.9 cm, Q2 8.2 cm, Q3 6.3 cm, Q4 3.9 cm BIOPHYSICAL PROFILE ----- 2: breathing movements 2: Gross body movements 2: tone 2: Amniotic fluid volume 8/8 Biophysical profile score Interpretation: normal RECOMMENDATION ----- We discussed the findings on today's ultrasound with the patient. The patient is scheduled [facility] Return to primary provider for continued care. Thank-you for the opportunity to participate in the care of this patient.If you have questions regarding today's evaluation or if we can be offurther service, please contact the Maternal- Medicine Center. anomalies may be present but not detected IMPRESSION ----- 1) Mild polyhydramnios. 2) BPP is reassuring. Bassem Pathak MD [facility] US ORDERABLE S * [facility] US Comprehensive Single F/U (08/21/2023 12:39 [...] ? Study Date: ??08/21/2023 11:58am Pat. NO: ??[id number] ?Referring ??MD: HOMAR MEDRANO Site: ? Duplicate Maker: Yamila Dutton RDMS : ??1985 ?Age: ?? [...] lb 4 ?oz EFW by ? Hadlock ([id number]) Head / Face / Neck Biometry: Building Specialist ?4.4 ? mm ANATOMY ----- The following [...] Heart / Thorax ?RVOT view. LVOT view. 6-pnpbsn-cvexnig view. Spine ?Cervical spine. sex: male. MATERNAL STRUCTURES ----- Cervix ?Suboptimal Right Ovary ?Not examined Left Ovary ?Not examined RECOMMENDATION ----- We discussed the findings on today's ultrasound with the patient. The patient has the following ultrasounds already scheduled: 1) BPP once weekly at your clinic. 2) BPP once weekly at [facility]. 3) echo on 08/28/23 with Pediatric Cardiology. 4) growth assessment at [facility] in 4 weeks. Given the polyhydramnios [...] EDWARDS Study Date: 08/21/2023 11:58am Pat. NO: [id number] Referring MD: HOMAR MEDRANO Site: Duplicate Maker: Yamila Dutton RDMS : 1985 Age: 37 [...] EFW (lb,oz) 6 lb 4oz EFW by Hadlock([id number]) Head / Face / Neck Biometry: Building Specialist 4.4mm ANATOMY ----- The following structures appear normal: Head / Neck Cranium. Head size. Head shape.Lateral ventricles. Midline falx. Cavum septi pellucidi. Cerebellum.Cisterna magna. Thalami. Face Profile. Heart / Thorax 4-chamber view. Diaphragm. Abdomen Stomach. Kidneys. Bladder. Spine Thoracic spine. Lumbar spine.Sacral spine. The following structures were documented previously: Face Lips. Nose. Heart / Thorax RVOT view. LVOT view. 6-pmkfqr-gtzpjbixton. Spine Cervical spine. sex: male. MATERNAL STRUCTURES ----- Cervix Suboptimal Right Ovary Not examined Left Ovary Not examined RECOMMENDATION ----- We discussed the findings on today's ultrasound with the patient. The patient has the following ultrasounds already scheduled: 1) BPP once weekly at your clinic. 2) BPP once weekly at [facility]. 3) echo on 08/28/23 with Pediatric Cardiology. 4) growth assessment at [facility] in 4 weeks. Given the polyhydramnios [...] BPP is reassuring. Cristiane Patel MD [facility] US ORDERABLE S * [facility] Non-Invasive Screening???Prequel (07/24/2023 2:49 PM CDT) See Scanned Result [facility] NON-INVASIVE SCREENING PREQUEL-Scann ed 08/02/2023 7:16 PM CDT [facility] Blood STRUCTURE OF RIGHT UPPER LIMB / Unknown Venipuncture / Unknown 07/24/2023 2:49 PM CDT 07/24/2023 2:49 PM CDT Laura Abdi LAB - BLOOD ORDERABL ES [facility] [address] [place], [place] [id number] [place] [address] * [facility] Comprehensive Single (07/24/2023 2:13 PM CDT) Anatomical [...] ? Study Date: ??07/24/2023 1:32pm Pat. NO: ??[id number] ?Referring ??MD: HOMAR MEDRANO Site: ??[facility] ? Duplicate Maker: Sujatha Joyce RDMS : ??1985 ?Age: ?? [...] 3 lb 10 ?oz EFW by ?Josh ([id number]) Head / Face / Neck Biometry: Building Specialist ? 3.6 ? mm CM ?5.7 ? [...] cava. Inferior vena cava. 3-vessel ? view. 1-mmdqvs-adzsyzs view. Cardiac position. Cardiac size. Cardiac rhythm. [...] are between 220-240. She is following a clinical systems educator and has met with a coining press operator. No one has started her on insulin [...] record, and communicating with other health healthcare customer service and/or care coordination. Please see note for details. Procedure Note Cristiane Patel MD - 07/24/2023 Comprehensive ----- Pat. Name: JACK EDWARDS Study Date: 07/24/2023 1:32pm Pat. NO: [id number] Referring MD: HOMAR MEDRANO Site: [facility] Duplicate Maker: Sujatha Joyce RDMS : 1985 Age: 37 [...] mm28w 1d Hadlock Humerus 52.9 mm30w 6d [facility] Weight Calculation: EFW 1,631 g94% Hadlock EFW (lb,oz) 3 lb 10 oz EFW by Hadlock ([id number]) Head / Face / Neck Biometry: Building Specialist 3.6 mm CM 5.7 mm Nasal bone [...] Superior venacava. Inferior vena cava. 3-vessel view. 5-lzdyii-comyaey view.Cardiac position. Cardiac size. Cardiac rhythm. Right [...] a diabetic educatorand has met with a coining press operator. No one has started her on insulin [...] medical record, andcommunicating with other health healthcare customer service and/or carecoordination. Please see note for details. [...] long and closed. 6. The BPP was 8/. Homar Medrano APRN [employer] IMG M US ORDERABLES from Last 3 Months Care Teams Life Insurance Actuary Relationship Specialty Start Date End Date Tre Ba MD [facility] [address] [place] [address] PCP - General associate financial advisor 01/15/22 Bassem Pathak MD [address] [place], [place] [address] Assigned OBGYN Provider 08/16/23
--- OUTSIDE RECORDS SUMMARY | 2023-09-11 07:27 | XMS_ITS | Encounter Summary ---
Author Organization [place] Address [address] [facility] [place] [address] Care Team Providers Care Adult Parole Officer Name Role Phone Tre Ba MD Primary Care Provide r Bassem Pathak MD Unavailable [phone] Encounter Details Date Type Department Care Team [...] Description 09/15/2023 1:[address] [facility] [place] [address] [facility] [address] [place] [address] Mitch Jernigan MD [address] [place] [address] 09/15/2023 2:00 PM CDT Office Visit [facility] [place] [address] [place] [phone] Mitch Jernigan MD [address] [place] [address] 09/17/2023 11:[address] [facility] [address] [place] [phone] Cristiane Patel MD [address] [place] [address] 09/22/2023 11:[address] [facility] Maternal Medicine [facility] [address] [place] [phone] Rachel Reyna MD [address] [place] [address] 09/22/2023 12:15 PM CDT Office Visit [facility] [place] [address] [place] [phone] Rachel Reyna MD [address] [place] [address] 09/29/2023 11:[address] [facility] [place] [address] [place] [phone] Luz Elena Betts MD [address] [place] [address] 09/29/2023 12:15 PM CDT Office Visit [facility] [place] [address] [place] [phone] Luz Elena Betts MD [address] [place] [address] 10/06/2023 11:[address] [facility] Medicine [facility] [address] [place] [phone] Luz Elena Betts MD [address] [place], [place] [id number] 10/06/2023 12:15 PM CDT Office Visit [facility] Maternal Medicine [facility] [address] [place] [phone] Luz Elena Betts MD [address] [place], [place] [id number] documented as of this encounter Visit Diagnoses Not on filedocumented in this encounter Care Teams Adult Parole Officer Relationship Specialty Start Date End Date Tre Ba MD [address] [place] [address] [address] [place] [address] PCP - General drug clerk 01/15/22 Bassem Pathak MD [address] [place], [place] [id number] Assigned OBGYN Provider 08/16/23 documented as of this encounter
--- OUTSIDE RECORDS SUMMARY | 2023-09-11 07:27 | XMS_ITS | Encounter Summary ---
Author Organization [place] Address [facility] [place] [address] Care Team Providers Care Pop Singer Name Role Phone Tre Ba MD Primary Care Provide r Bassem Pathak MD Unavailable [phone] Reason for Referral * Diagnostic Imaging Ultrasound (Routine) - Pending Review Specialty Diagnoses / Procedures Referred By Temo taylor Referred To Contact Radiology. Diagnoses Pre-existing type 2 diabetes mellitus during in third trimester [facility] [address] [facility] [address] [place] [address] Referral ID Status Reason Start Date Expiration Date V isits Requested Visits Authorized [id number] Pending Review 07/30/2023 07/29/2024 1 1 Reason for Visit * Diagnostic Imaging Ultrasound (Routine) - Pending Review Specialty Diagnoses / Procedures Referred By Temo taylor Referred To Contact Radiology. Diagnoses Pre-existing type 2 diabetes mellitus during in third trimester Procedures [facility] Bassem Dhillon MD [address] [place] [address] Referral ID Status Reason Start Date Expiration Date V isits Requested Visits Authorized [id number] Pending Review 07/30/2023 07/29/2024 1 1 Encounter Details Date Type Department Care Team (Latest Contact Info) Description 08/25/2023 11:45 AM CDT - 08/25/2023 11:59 PM CDT Hospital Encounter [facility] Maternal Medicine [facility] [address] [place] [phone] Bassem Pathak MD [address] [place] [address] Luz Elena Betts MD [address] [place] [address] Pre-existing type 2 diabetes mellitus [...] Info) Description 09/15/2023 1:30 PM CDT Appointment [facility] Maternal Medicine [facility] [address] [place] [phone] Mitch Jernigan MD [address] [place], [place] [address] 09/15/2023 2:00 PM CDT Office Visit [facility] Maternal Medicine [facility] [address] [place] [phone] Mitch Jernigan MD [address] [place] [address] 09/17/2023 11:00 AM CDT Appointment [facility] [address] [place] [phone] Cristiane Patel MD [address] [place] [address] 09/22/2023 11:45 AM CDT Appointment [facility] [place] [address] [place] [phone] Rachel Reyna MD [address] [place] [address] 09/22/2023 12:15 PM CDT Office Visit [facility] [place] [address] [place] [phone] Rachel Reyna MD [address] [place] [address] 09/29/2023 11:45 AM CDT Appointment [facility] [place] [address] [place] [phone] Luz Elena Betts MD [address] [place] [address] 09/29/2023 12:15 PM CDT Office Visit [facility] [place] [address] [place] [phone] Luz Elena Betts MD [address] [place], [place] [address] 10/06/2023 11:45 AM CDT Appointment [facility] Maternal Medicine [facility] [address] [place] [phone] Luz Elena Betts MD [address] [place], [place] [address] 10/06/2023 12:15 PM CDT Office Visit [facility] Medicine [facility] [address] [place] [phone] Luz Elena Betts MD [address] [place], [place] [id number] documented as of this encounter Procedures Procedure Name Priority Date/Time Associated Diagnosis Comments [facility] BPP SINGLE Routine 08/25/2023 12:05 PM CDT [...] ? Study Date: ??08/25/2023 11:48am Pat. NO: ??[id number] ?Referring ??MD: HOMAR MEDRANO Site: ? Seeing Eye Dog Trainer: Micha Gage RDMS : ??1985 ?Age: ?? [...] surveillance with twice weekly BPP, alternating between [facility] and [facility]. Return to primary provider for continued care. [...] WILDER Study Date: 08/25/2023 11:48am Pat. NO: [id number] Referring MD: HOMAR MEDRANO Site: Seeing Eye Dog Trainer: Micha Gage RDMS : 1985 Age: 37 ----- INDICATION ----- Type 2 diabetes - on insulin Mild polyhydramnios METHOD ----- Transabdominal ultrasound examination. View: Sufficient ----- Gonzalez . Number of fetuses: 1 DATING ----- DateDetailsGkiersten. age BROOKE LMP w + 3 d [...] Continue surveillance with twice weekly [facility]. Return to primary provider for continued care. [...] polyhydramnios is noted. Bassem Pathak MD IMG MFM US ORDERABLE S documented in this encounter Visit Diagnoses Diagnosis Pre-existing type 2 diabetes mellitus during in third trimester documented in this encounter Care Teams Pop Singer Relationship Specialty Start Date End Date Tre Ba MD [facility] TERRY JOHNSON [address] [place] [phone] PCP - General freight service inspector 01/15/22 Bassem Pathak MD [address] [facility] [address] [place] [address] Assigned OBGYN Provider 08/16/23 documented as of this encounter
--- OUTSIDE RECORDS SUMMARY | 2023-09-11 07:27 | XMS_ITS | Referral Summary ---
Author Organization [facility] Address [address] [place] [address] Care Team Providers Care Executive Account Manager Name Role Phone Tre Ba MD Primary Care Provide r Bassem Pathak MD Unavailable [phone] Encounters Date Type Department Care Team Description 09/08/2023 Travel 09/08/2023 12:15 PM CDT Office Visit [facility] Maternal Medicine [facility] [address] [place] [address] Bassem Pathak MD Rauk, Mitch Walker MD Pre-existing type 2 diabetes mellitus during in third trimester (Primary Dx) 09/08/2023 11:45 AM CDT - 09/08/2023 11:59 PM CDT Hospital Encounter [facility] Medicine [facility] [address] [place] [address] Bassem Pathak MD Rauk, Mitch Walker MD Pre-existing type 2 diabetes mellitus during in third trimester Discharge Disposition: Home or Self Care 09/02/2023 Travel 09/02/2023 12:15 PM CDT Office Visit [facility] Medicine [facility] [address] [place] [phone] Luz Elena Betts MD Pre-existing type 2 diabetes mellitus during in third trimester (Primary Dx) 09/02/2023 11:45 AM CDT - 09/02/2023 11:59 PM CDT Hospital Encounter [facility] Medicine [facility] [address] [place] [address] Luz Elena Betts MD Pre-existing type 2 diabetes mellitus during in third trimester Discharge Disposition: Home or Self Care 08/26/[address] [facility] Care [address] [place] [address] Cheri Peters LPN 08/25/2023 Travel 08/25/2023 12:15 PM CDT Office Visit [facility] Maternal Medicine [facility] [address] [place] [address] Bassem Pathak MD Yamamura, Yasuko, MD Pre-existing type 2 diabetes mellitus during in third trimester (Primary Dx); Polyhydramnios in third trimester complication, single or unspecified fetus 08/25/2023 11:45 AM CDT - 08/25/2023 11:59 PM CDT Hospital Encounter [facility] Maternal Medicine [facility] [address] [place] [address] Bassem Pathak MD Yamamura, Yasuko, MD Pre-existing type 2 diabetes mellitus during in third trimester Discharge Disposition: Home or Self Care 08/21/2023 Travel 08/21/2023 12:15 PM CDT Office Visit [facility] Maternal Medicine [facility] [address] [place] [address] Cristiane Patel MD Rauk, Mitch Walker MD Pre-existing type 2 diabetes mellitus during in third trimester (Primary Dx); Polyhydramnios affecting 08/21/2023 11:45 AM CDT - 08/21/2023 11:59 PM CDT Hospital Encounter [facility] Maternal Medicine [facility] [address] [place] [address] Cristiane Patel MD Rauk, Phillip Neil, MD Polyhydramnios affecting Discharge Disposition: Home or Self Care 08/14/2023 Travel 08/14/2023 4:00 PM CDT Office Visit [facility] Maternal Medicine [facility] [place] [address] [facility] [address] [place] [phone] Cristiane Patel MD Rauk, Mitch Walker MD Pre-existing type 2 diabetes mellitus during in third trimester (Primary Dx); Polyhydramnios affecting 08/14/2023 3:30 PM CDT - 08/14/2023 11:59 PM CDT Hospital Encounter [facility] Maternal Medicine [place] [address] [facility] [address] [place] [phone] Cristiane Patel MD Rauk, Mitch Walker MD Polyhydramnios affecting Discharge Disposition: Home or Self Care 08/03/[address] [facility] Maternal Medicine [facility] [place] [address] [place] [phone] Laura Abdi, GC Results (Low Risk Expanded NIPT) 07/30/2023 Travel 07/30/2023 4:00 PM CDT Office Visit [facility] Maternal Medicine [place] [address] [place] [phone] Bassem Pathak MD Pre-existing type 2 diabetes mellitus during in third trimester (Primary Dx) 07/30/2023 3:25 PM CDT - 07/30/2023 11:59 PM CDT Hospital Encounter [facility] Maternal Medicine [address] [place] [phone] Bassem Pathak MD Polyhydramnios affecting Discharge Disposition: Home or Self Care 07/29/[address] [facility] Maternal Medicine [place] [address] [facility] [address] [place] [phone] Carrie Smith, JD Care (/) 07/24/2023 Medical Correspondence [facility] [address] [place] [address] Scan, Non-Provider 07/24/2023 2:40 PM CDT Lab [facility] [address] [place] [phone] Cristiane Patel MD Multigravida of advanced maternal age in third trimester 07/24/2023 Travel 07/24/2023 2:00 PM CDT Office Visit [facility] [place] [address] [phone] Cristiane Patel MD with type 2 diabetes mellitus in third trimester (Primary Dx); Polyhydramnios affecting 07/24/2023 12:50 PM CDT - 07/24/2023 11:59 PM CDT Hospital Encounter [facility] [address] [address] Cristiane Patel MD related condition, antepartum Discharge Disposition: Home or Self Care 07/24/2023 12:45 PM CDT Office Visit [facility] [place] [address] [phone] Cristiane Patel MD Daykin, Emily C, Multigravida of advanced maternal age in third trimester (Primary Dx); related condition, antepartum 07/08/2023 PRE VISIT [place] [address] [phone] Melissa Aguiar RN Ultrasound (L2-AMA) 07/03/2023 Medical Correspondence [facility] [address] [place] [address] Scan, Non-Provider 07/03/2023 Transcribe Orders [place] [address] [address] [facility] [address] [place] [phone] Homar Medrano, M[employer]DE[employer] CONSULTANT related condition, antepartum (Primary Dx) from Last [...] Comments Blood Pressure 112/59 01/20/2022 11:00 PM [employer]UC[employer] POL[employer] Pulse 80 01/20/2022 11:00 PM [employer]UCET POLISH[employer] Temperature 37.1 ??C (98.7 ??F) 01/20/2022 10:[address] Respiratory Rate 16 01/20/2022 11:00 PM FAUCET POLISHER Oxygen Saturation 100% 01/20/2022 11:30 PM FAUCET POLISHER Inhaled Oxygen Concentration - - Weight 76.4 kg (168 lb 6.4 oz) 01/20/2022 4:42 P M [employer] Height 154.9 cm (5' 1) 01/20/2022 4:42 PM FAUCET POLISHER Body Mass Index 31.82 01/20/2022 4:42 PM FAUCET POLISHER Plan of Treatment Upcoming Encounters Date Type Department Care Team (Late st Contact Info) Description 09/15/2023 1:[address] [facility] Maternal Medicine [place] [address] [facility] [address] [place] [address] Mitch Jernigan MD [address] [place] [address] 09/15/2023 2:00 PM CDT Office Visit [facility] Maternal Medicine [place] [address] [place] [phone] Mitch Jernigan MD [address] [place] [address] 09/17/2023 11:00 AM CDT Appointment [facility] [address] [place] [phone] Cristiane Patel MD [address] [place] [address] 09/22/2023 11:[address] [facility] Maternal Medicine [place] [address] [place] [phone] Rachel Reyna MD [address] [place] [address] 09/22/2023 12:15 PM CDT Office Visit [facility] Maternal Medicine [place] [address] [place] [phone] Rachel Reyna MD [address] [place] [address] 09/29/2023 11:[address] [facility] Maternal Medicine [facility] [place] [address] [place] [phone] Luz Elena Betts MD [address] [place] [address] 09/29/2023 12:15 PM CDT Office Visit [facility] M[facility] Medicine [place] [address] [place] [address] Luz Elena Betts MD [address] [place] [address] 10/06/2023 11:[address] [facility] Maternal Medicine [facility] [address] [place] [phone] Luz Elena Betts MD [address] [place] [address] 10/06/2023 12:15 PM CDT Office Visit [facility] Maternal Medicine [facility] [address] [place] [phone] Luz Elena Betts MD [address] [place] [address] Procedures Procedure Name Priority Date/Time Associated Diagnosis Comments [facility] SINGLE Routine 09/08/2023 12:22 PM CDT Pre-existing type 2 diabetes mellitus during in third trimester [facility] SINGLE Routine 09/02/2023 12:22 PM CDT Pre-existing type 2 diabetes mellitus during in third trimester [facility] SINGLE Routine 08/25/2023 12:05 PM CDT Pre-existing type 2 diabetes mellitus during in third trimester [facility] SINGLE F/U Routine 08/21/2023 12:39 PM CDT Polyhydramnios affecting [facility] SINGLE Routine 08/14/2023 3:54 PM CDT Polyhydramnios affecting [facility] SINGLE Routine 07/30/2023 3:46 PM CDT Polyhydramnios affecting [facility] NON-INVASIVE SCREENING PREQUEL Routine 07/24/2023 2:49 PM CDT Multigravida of advanced maternal age in third trimester [facility] COMPREHENSIVE SINGLE Routine 07/24/2023 2:13 PM CDT related condition, antepartum from Last 3 Months Results * [facility] BPP Single (09/08/2023 12:22 PM CDT) Only the most recent of5 resultswithin the time period is included. Anatomical Region Laterality Modality Ultrasound 09/08/2023 12:0 1 PM CDT Impressions 09/08/2023 12:24 PM CDT IMPRESSION ----- 1) Mild polyhydramnios. 2) BPP is reassuring. Narrative 09/08/2023 12:24 PM CDT ?BPP ----- Pat. Name: JACK EDWARDS ? Study Date: ??09/08/2023 12:01pm Pat. NO: ??[id number] ?Referring ??MD: HOMAR MEDRANO Site: ? Director Of State: Gemma PinzonAMALIA : ??1985 ?Age: ?? 37 ----- INDICATION [...] BPP at your office weekly and at [facility] weekly. Return to primary provider for [...] EDWARDS Study Date: 09/08/2023 12:01pm Pat. NO: [id number] Referring MD: HOMAR MEDRANO Site: Director Of State: Gemma Pinzon RDMS : 1985 Age: 37 [...] dating based on the LMP, selected on 435w + 3 d 10/10/2023 GENERAL EVALUATION ----- [...] [facility] Return to primary provider for continued care. Thank-you for the opportunity to participate in the care of this patient.If you have questions regarding today's evaluation or if we can be offurther service, please contact the Maternal- Medicine Center. anomalies may be present but not detected IMPRESSION ----- 1) Mild polyhydramnios. 2) BPP is reassuring. Bassem Pathak MD [facility] US ORDERABLE S [facility] US Comprehensive Single F/U (08/21/2023 12:39 [...] ? Study Date: ??08/21/2023 11:58am Pat. NO: ??[id number] ?Referring ??MD: HOMAR MEDRANO Site: ? Director Of State: Yamila Duttno RDMS : ??1985 ?Age: ?? 37 ----- INDICATION ----- Type 2 diabetes - on insulin Mild polyhydramnios. METHOD ----- Transabdominal ultrasound examination. View: Sufficient ----- Gonzalez . Number of fetuses: 1 DATING ----- ? Date ?Details ?Gest. age ?BROOKE LMP ?01/03/2023 ?32 w + 6 d ? 10/10/2023 Stated RBOOKE ? 32 w + 6 d ? [...] lb 4 ?oz EFW by ? Hadlock ([id number]-[id number]-NH) Head / Face / Neck Biometry: Product Development Chemist ?4.4 ? mm ANATOMY ----- The following [...] Heart / Thorax ?RVOT view. LVOT view. 9-mibjqy-jltllfj view. Spine ?Cervical spine. sex: male. MATERNAL STRUCTURES ----- Cervix ?Suboptimal Right Ovary ?Not examined Left Ovary ?Not examined RECOMMENDATION ----- We discussed the findings on today's ultrasound with the patient. The patient has the following ultrasounds already scheduled: 1) BPP once weekly at your clinic. 2) BPP once weekly at [facility]. 3) echo on 08/28/23 with Pediatric Cardiology. 4) growth assessment at [facility] in 4 weeks. Given the polyhydramnios [...] EDWARDS Study Date: 08/21/2023 11:58am Pat. NO: [id number] Referring MD: HOMAR MEDRANO Site: Director Of State: Yamila Dutton RDMS : 1985 Age: 37 [...] EFW (lb,oz) 6 lb 4oz EFW by Josh([id number]-NH) Head / Face / Neck Biometry: Product Development Chemist 4.4mm ANATOMY ----- The following structures appear normal: Head / Neck Cranium. Head size. Head shape.Lateral ventricles. Midline falx. Cavum septi pellucidi. Cerebellum.Cisterna magna. Thalami. Face Profile. Heart / Thorax 4-chamber view. Diaphragm. Abdomen Stomach. Kidneys. Bladder. Spine Thoracic spine. Lumbar spine.Sacral spine. The following structures were documented previously: Face Lips. Nose. Heart / Thorax RVOT view. LVOT view. 6-feqsqg-jnolljlzeow. Spine Cervical spine. sex: male. MATERNAL STRUCTURES ----- Cervix Suboptimal Right Ovary Not examined Left Ovary Not examined RECOMMENDATION ----- We discussed the findings on today's ultrasound with the patient. The patient has the following ultrasounds already scheduled: 1) BPP once weekly at your clinic. 2) BPP once weekly at [facility]. 3) echo on 08/28/23 with Pediatric Cardiology. 4) growth assessment at [facility] in 4 weeks. Given the polyhydramnios [...] 5. BPP is reassuring. Cristiane Patel MD [facility] ORDERABLE S * [facility] Non-Invasive Screening???Prequel (07/24/2023 2:49 PM CDT) See Scanned Result [facility] NON-INVASIVE SCREENING PREQUEL-Scann ed 08/02/2023 7:16 PM CDT [employer] Blood STRUCTURE OF RIGHT UPPER LIMB / Unknown Venipuncture / Unknown 07/24/2023 2:49 PM CDT 07/24/2023 2:49 PM CDT Laura Abdi LAB - BLOOD ORDERABL ES [employer]([facility]) [place] [address], [facility] [place] [phone] * MFM Comprehensive Single (07/24/2023 2:13 PM [...] ? Study Date: ??07/24/2023 1:32pm Pat. NO: ??[id number] ?Referring ??MD: HOMAR MEDRANO Site: ??[facility] ? Director Of State: Sujatha Joyce RDMS : ??1985 ?Age: ?? [...] 3 lb 10 ?oz EFW by ?Hadlock ([id number]-FL) Head / Face / Neck Biometry: Product Development Chemist ? 3.6 ? mm CM ?5.7 ? [...] cava. Inferior vena cava. 3-vessel ? view. 6-rbkazy-iiiqojs view. Cardiac position. Cardiac size. Cardiac rhythm. [...] between 220-240. She is following a community nutrition educator and has met with a balancer. No one has started her on insulin [...] medical record, and communicating with other health career development engineer and/or care coordination. Please see note for details. Procedure Note Cristiane Patel MD - 07/24/2023 Comprehensive ----- Pat. Name: JACK EDWARDS Study Date: 07/24/2023 1:32pm Pat. NO: [id number] Referring MD: HOMAR MEDRANO Site: [facility] Director Of State: Sujatha Joyce RDMS : 1985 Age: 37 [...] 3 lb 10 oz EFW by Hadlock ([id number]-[id number]-CJ-FL) Head / Face / Neck Biometry: Product Development Chemist 3.6 mm CM 5.7 mm Nasal bone [...] Superior venacava. Inferior vena cava. 3-vessel view. 4-nadwgo-seaxfje view.Cardiac position. Cardiac size. Cardiac rhythm. Right [...] a diabetic educatorand has met with a balancer. No one has started her on insulin [...] electronic medical record, andcommunicating with other health career development engineer and/or carecoordination. Please see note for details. [...] BPP was 09/30. Homar Medrano APRN, CNP Lydia [facility] US ORDERABLES from Last 3 Months Care Teams Executive Account Manager Relationship Specialty Start Date End Date Tre Ba MD [facility] [address] [place] [address] PCP - General cordage sales representative 01/15/22 Bassem Pahtak MD [address] [address] [place] [address] Assigned OBGYN Provider 08/16/23
--- OUTSIDE RECORDS SUMMARY | 2023-09-11 07:27 | XMS_ITS | Encounter Summary ---
Author Organization [facility] Address [address] [place] [address] Care Team Providers Care Polisher Hand Name Role Phone Tre Ba MD Primary Care Provide r Bassem Pathak MD Unavailable [phone] Encounter Details Date Type Department Care Team [...] [facility] M[facility] Medicine [facility] [place] [address] [facility] [address] [place] [address] Mitch Jernigan MD [address] [place] [address] 09/15/2023 2:00 PM CDT Office Visit [facility] M[facility] [place] [address] [place] [phone] Mitch Jernigan MD [address] [place] [address] 09/17/2023 11:00 AM CDT Appointment [facility] [address] [place] [address] Cristiane Patel MD [address] [place] [address] 09/22/2023 11:45 AM CDT Appointment [facility] Maternal Medicine [facility] [address] [place] [phone] Rachel Reyna MD [address] [place] [address] 09/22/2023 12:15 PM CDT Office Visit [facility] [place] [address] [place] [phone] Rachel Reyna MD [address] [place] [address] 09/29/2023 11:45 AM CDT Appointment [facility] [place] [address] [place] [phone] Luz Elena Betts MD [address] [place] [address] 09/29/2023 12:15 PM CDT Office Visit [facility] [place] [address] [place] [phone] Luz Elena Betts MD [address] [place] [address] 10/06/2023 11:45 AM CDT Appointment [facility] Medicine [facility] [address] [place] [phone] Luz Elena Betts MD [address] [place], [place] [address] 10/06/2023 12:15 PM CDT Office Visit [facility] Maternal Medicine [facility] [address] [place] [phone] Luz Elena Betts MD [address] [place], [place] [phone] documented as of this encounter Visit Diagnoses Not on filedocumented in this encounter Care Teams Polisher Hand Relationship Specialty Start Date End Date Tre Ba MD [address] [place] [address] [address] [place] [address] PCP - General theatre director 01/15/22 Bassem Pathak MD [address] [place], [place] [id number] Assigned OBGYN Provider 08/16/23 documented as of this encounter
--- OUTSIDE RECORDS SUMMARY | 2023-09-11 07:27 | XMS_ITS | Encounter Summary ---
Author Organization [facility] Address [address] [place] [address]. [place] [address] Care Team Providers Care Orderly Name Role Phone Tre Ba MD Primary Care Provide r Bassem Pathak MD Unavailable [phone] Encounter Details Date Type Department Care Team (Late st Contact Info) Description 08/26/2023 Telephone [facility] [address] [place] [phone] Cheri Peters LPN Social History Tobacco [...] Department Care Team (Late Contact Info) Description 09/15/2023 1:30 PM CDT Appointment [facility] Maternal Medicine Center [place] [address] [place] [address] Mitch Jernigan MD [address] [place] [address] 09/15/2023 2:00 PM CDT Office Visit [facility] Maternal Medicine [facility] [place] [address] [place] [address] Mitch Jernigan MD [address] [place] [address] 09/17/2023 11:00 AM CDT Appointment [facility] [address] [place] [address] Cristiane Patel MD [address] [place] [address] 09/22/2023 11:45 AM CDT Appointment [facility] Maternal Medicine Center [place] [address] [place] [phone] Rachel Reyna MD [address] [place] [address] 09/22/2023 12:15 PM CDT Office Visit [facility] Maternal Medicine [facility] [place] [address] [place] [phone] Rachel Reyna MD [address] [place], [place] [address] 09/29/2023 11:45 AM CDT Appointment [facility] Maternal Medicine [facility] [place] [address] [place] [phone] Luz Elena Betts MD [address] [place] [address] 09/29/2023 12:15 PM CDT Office Visit [facility] Medicine [facility] [address] [place] [address] Luz Elena Betts MD [address] [place] [address] 10/06/2023 11:45 AM CDT Appointment [facility] Medicine [facility] [address] [facility] [address] [place] [phone] Luz Elena Betts MD [address] [address] 10/06/2023 12:15 PM CDT Office Visit [facility] Medicine [facility] [address] [place] [phone] Luz Elena Betts MD [address] [address] documented as of this encounter Visit Diagnoses Not on filedocumented in this encounter Care Teams Orderly Relationship Specialty Start Date End Date Tre Ba MD [facility] TERRY PONEC [facility] [address] [place] [address] PCP - General fundraising officer 01/15/22 Bassem Pathak MD [address] [place] [address] Assigned OBGYN Provider 08/16/23 documented as of this encounter
--- OUTSIDE RECORDS SUMMARY | 2023-09-11 07:27 | XMS_ITS | Encounter Summary ---
Author Organization [place] Address [facility] [place] [address] Care Team Providers Care Pit Shoveler Name Role Phone Tre Ba MD Primary Care Provide r Bassem Pathak MD Unavailable [phone] Reason for Referral * Diagnostic Imaging Ultrasound (Routine) - Pending Review Specialty Diagnoses / Procedures Referred By Temo taylor Referred To Contact Radiology. Diagnoses Pre-existing type 2 diabetes mellitus during in third trimester Procedures [facility] [address] [place] [address] Referral ID Status Reason Start Date Expiration Date V isits Requested Visits Authorized [id number] Pending Review 07/30/2023 07/29/2024 1 1 Reason for Visit * Diagnostic Imaging Ultrasound (Routine) - Pending Review Specialty Diagnoses / Procedures Referred By Temo taylor Referred To Contact Radiology. Diagnoses Pre-existing type 2 diabetes mellitus during in third trimester Procedures [facility] Bassem Dhillon MD [address] [place] [address] Referral ID Status Reason Start Date Expiration Date V isits Requested Visits Authorized [id number] Pending Review 07/30/2023 07/29/2024 1 1 Encounter Details Date Type Department Care Team (Latest Contact Info) Description 09/08/2023 11:45 AM CDT - 09/08/2023 11:59 PM CDT Hospital Encounter [facility] Maternal Medicine [facility] [address] [place] [phone] Bassem Pathak MD [address] [place] [address] Mitch Jernigan MD [address] [place] [address] Pre-existing type 2 diabetes mellitus [...] Info) Description 09/15/2023 1:30 PM CDT Appointment [facility] Maternal Medicine [facility] [address] [place] [phone] Mitch Jernigan MD [address] [place], [place] [address] 09/15/2023 2:00 PM CDT Office Visit [facility] Maternal Medicine [facility] [address] [place] [address] Mitch Jernigan MD [address] [place] [address] 09/17/2023 11:00 AM CDT Appointment [facility] [address] [place] [address] Cristiane Patel MD [address] [place] [address] 09/22/2023 11:45 AM CDT Appointment [facility] Maternal Medicine [place] [address] [place] [phone] Rachel Reyna MD [address] [place] [address] 09/22/2023 12:15 PM CDT Office Visit [facility] Maternal Medicine [place] [address] [place] [address] Rachel Reyna MD [address] [place] [address] 09/29/2023 11:45 AM CDT Appointment [facility] Maternal Medicine [place] [address] [place] [address] Luz Elena Betts MD [address] [place] [address] 09/29/2023 12:15 PM CDT Office Visit [facility] Maternal Medicine Center [place] [address] [place] [address] Luz Elena Betts MD [address] [place], [place] [address] 10/06/2023 11:45 AM CDT Appointment [facility] [address] [place] [phone] Luz Elena Betts MD [address] [place], [place] [address] 10/06/2023 12:15 PM CDT Office Visit [facility] [address] [place] [phone] Luz Elena Betts MD [address] [place], [place] [address] documented as of this encounter Procedures Procedure Name Priority Date/Time Associated Diagnosis Comments M BPP SINGLE Routine 09/08/2023 12:22 PM CDT Pre-existing type 2 diabetes mellitus during in third trimester documented in this encounter Results * M BPP Single (09/08/2023 12:22 PM CDT) Anatomical Region Laterality Modality Ultrasound 09/08/2023 12:0 1 PM CDT Impressions 09/08/2023 12:24 PM CDT IMPRESSION ----- 1) Mild polyhydramnios. 2) BPP is reassuring. Narrative 09/08/2023 12:24 PM CDT ?BPP ----- Pat. Name: CORNELIA WILDERABEL ? Study Date: ??09/08/2023 12:01pm Pat. NO: ??[id number] ?Referring ??MD: HOMAR MEDRANO Site: ? Chairman President And Chief Executive Officer: Gemma Pinzon RDMS : ??1985 ?Age: ?? [...] BPP at your office weekly and at [facility] weekly. Return to primary provider for continued care. Thank-you for the opportunity to participate in the care of this patient. If you have questions regarding today's evaluation or if we can be of further service, please contact the Maternal- Medicine Center. anomalies may be present but not detected Procedure Note Mitch Jernigan MD - 09/08/2023 BPP ----- Pat. Name: SHEBA WILDER Study Date: 09/08/2023 12:01pm Pat. NO: [id number] Referring MD: HOMAR MEDRANO Site: Chairman President And Chief Executive Officer: Gemma Pinzon RDMS : 1985 Age: 37 [...] BPP at your office weekly and [facility] Return to primary provider for continued care. Thank-you for the opportunity to participate in the care of this patient.If you have questions regarding today's evaluation or if we can be offurther service, please contact the Maternal- Medicine Center. anomalies may be present but not detected IMPRESSION ----- 1) Mild polyhydramnios. 2) BPP is reassuring. Bassem Pathak MD [facility] US ORDERABLE S documented in this encounter Visit Diagnoses Diagnosis Pre-existing type 2 diabetes mellitus during in third trimester documented in this encounter Care Teams Pit Shoveler Relationship Specialty Start Date End Date Tre Ba MD [facility] [place] [address] PCP - General land leases and rentals manager 01/15/22 Bassem Pathak MD [address] [place] [address] Assigned OBGYN Provider 08/16/23 documented as of this encounter
--- OUTSIDE RECORDS SUMMARY | 2023-09-11 07:27 | XMS_ITS | Encounter Summary ---
Author Organization [place] Address [facility] [place] [address] Care Team Providers Care Consulting Systems Engineer Name Role Phone Tre Ba MD Primary Care Provide r Bassem Pathak MD Unavailable [phone] Reason for Referral * Diagnostic Imaging Ultrasound (Routine) - Pending Review Specialty Diagnoses / Procedures Referred By Temo taylor Referred To Contact Radiology. Diagnoses Pre-existing type 2 diabetes mellitus during in third trimester Procedures [facility] [address] [facility] [address] [place] [address] Referral ID Status Reason Start Date Expiration Date V isits Requested Visits Authorized [id number] Pending Review 07/30/2023 07/29/2024 1 1 Reason for Visit * Diagnostic Imaging Ultrasound (Routine) - Pending Review Specialty Diagnoses / Procedures Referred By Temo taylor Referred To Contact Radiology. Diagnoses Pre-existing type 2 diabetes mellitus during in third trimester Procedures [facility] Bassem Dhillon MD [address] [place] [address] Referral ID Status Reason Start Date Expiration Date V isits Requested Visits Authorized [id number] Pending Review 07/30/2023 07/29/2024 1 1 Encounter Details Date Type Department Care Team (Latest Contact Info) Description 09/02/2023 11:45 AM CDT - 09/02/2023 11:59 PM CDT Hospital Encounter [facility] Maternal Medicine [place] [address] [place] [phone] Luz Elena Betts MD [address] [place] [address] Pre-existing type 2 diabetes mellitus [...] Info) Description 09/15/2023 1:30 PM CDT Appointment [facility] Maternal Medicine [place] [address] [place] [phone] Mitch Jernigan MD [address] [place], [place] [address] 09/15/2023 2:00 PM CDT Office Visit [facility] Maternal Medicine [place] [address] [place] [phone] Mitch Jernigan MD [address] [place] [address] 09/17/2023 11:00 AM CDT Appointment [facility] Heart Care [address] [place] [address] Cristiane Patel MD [address] [place] [address] 09/22/2023 11:45 AM CDT Appointment [facility] Maternal Medicine [facility] [address] [place] [phone] Rachel Reyna MD [address] [place] [address] 09/22/2023 12:15 PM CDT Office Visit [facility] Maternal Medicine [facility] [place] [address] [place] [phone] Rachel Reyna MD [address] [place] [address] 09/29/2023 11:45 AM CDT Appointment [facility] Maternal Medicine [facility] [place] [address] [place] [phone] Luz Elena Betts MD [address] [place] [address] 09/29/2023 12:15 PM CDT Office Visit [facility] M[facility] Medicine [facility] [place] [address] [place] [phone] Luz Elena Betts MD [address] [place] [address] 10/06/2023 11:45 AM CDT Appointment [facility] Medicine [facility] [address] [place] [address] Luz Elena Betts MD [address] [place], [place] [address] 10/06/2023 12:15 PM CDT Office Visit [facility] Medicine [facility] [address] [place] [address] Luz Elena Betts MD [address] [place] [address] documented as of this encounter Procedures Procedure Name Priority Date/Time Associated Diagnosis Comments [facility] BPP SINGLE Routine 09/02/2023 12:22 PM CDT Pre-existing type 2 diabetes mellitus during in third trimester documented in this encounter Results * [facility] BPP Single (09/02/2023 12:22 PM CDT) Anatomical Region Laterality Modality Ultrasound 09/02/2023 11:5 8 AM CDT Impressions 09/02/2023 4:11 PM CDT IMPRESSION ----- 1) Gonzalez intrauterine at 34w 4d gestational age. 2) The BPP is reassuring. 3) Mild polyhydramnios was again noted. Narrative 09/02/2023 4:11 PM CDT ?BPP ----- Pat. Name: SHEBA WILDER ? Study Date: ??09/02/2023 11:58am Pat. NO: ??[id number] ?Referring ??MD: HOMAR MEDRANO Site: ? Nitrator Operator: Lashonda Barlow RDMS : ??1985 ?Age: ?? [...] surveillance with twice weekly BPP, alternating between [facility] and [facility]. Return to primary provider for [...] WILDER Study Date: 09/02/2023 11:58am Pat. NO: [id number] Referring MD: HOMAR MEDRANO Site: Nitrator Operator: Lashonda Barlow RDMS : 1985 Age: 37 [...] Continue surveillance with twice weekly [facility], [facility]. Return to primary provider for [...] polyhydramnios was again noted. Bassem Pathak MD [facility] US ORDERABLE S documented in this encounter Visit Diagnoses Diagnosis Pre-existing type 2 diabetes mellitus during in third trimester documented in this encounter Care Teams Consulting Systems Engineer Relationship Specialty Start Date End Date Tre Ba MD [facility] [address] [place] [address] PCP - General social media specialist 01/15/22 Bassem Pathak MD [address] [id number] Assigned OBGYN Provider 08/16/23 documented as of this encounter
--- OUTSIDE RECORDS SUMMARY | 2023-09-11 07:27 | XMS_ITS | Encounter Summary ---
Author Organization [place] Address [address] [facility] [facility] [place] [address] Care Team Providers Care Roll Clamp Operator Name Role Phone Tre Ba MD Primary Care Provide r Bassem Pathak MD Unavailable Reason for Visit * Reason Comments Ultrasound BPP-T2DM Encounter Details Date Type Department Care Team (Late st Contact Info) Description 09/08/2023 12:15 PM CDT Office Visit [facility] Maternal Medicine Center [facility] [address] [place] [address] Bassem Pathak MD [address] [place] [address] Mitch Jernigan MD [address] [place] [address] Pre-existing type 2 diabetes mellitus [...] Progress Notes * Mitch Jernigan MD - 09/08/2023 12:15 PM CDT Please see Imaging tab under Chart Review for details of today's US at the [facility]. Mitch Jernigan MD Maternal- Medicine documented in this encounter Nursing Notes * Melissa Aguiar RN - 09/08/2023 12:15 PM CDT Patient reports good movement, reports irregular contractions, denies leaking of fluid, or bleeding. Reports blood sugar values are well controlled on insulin. SBAR given to [facility] , see their note in Epic. documented in this encounter Plan of Treatment Upcoming Encounters Date Type Department Care Team (Late st Contact Info) Description 09/15/2023 1:30 PM CDT Appointment [facility] Maternal Medicine [place] [address] [place] [phone] Mitch Jernigan MD [address] [place], [place] [address] 09/15/2023 2:00 PM CDT Office Visit [facility] Maternal Medicine [place] [address] [place] [phone] Mitch Jernigan MD [address] [place] [address] 09/17/2023 11:[address] [facility] [address] [place] [phone] Cristiane Patel MD [address] [place] [address] 09/22/2023 11:45 AM CDT Appointment [facility] Medicine [place] [address] [place] [address] Rachel Reyna MD [address] [place] [address] 09/22/2023 12:15 PM CDT Office Visit [facility] Maternal Medicine [place] [address] [place] [address] Rachel Reyna MD [address] [place] [address] 09/29/2023 11:45 AM CDT Appointment [facility] Maternal Medicine [place] [address] [place] [address] Luz Elena Betts MD [address] [place] [address] 09/29/2023 12:15 PM CDT Office Visit [facility] Maternal Medicine [place] [address] [place] [address] Luz Elena Betts MD [address] [place] [address] 10/06/2023 11:45 AM CDT Appointment [facility] Maternal Medicine [place] [address] [place] [address] Luz Elena Betts MD [address] [place] [address] 10/06/2023 12:15 PM CDT Office Visit [facility] Maternal Medicine [place] [address] [place] [address] Luz Elena Betts MD [address] [place], [place] [address] documented as of this encounter Visit Diagnoses Diagnosis Pre-existing type 2 diabetes mellitus during in third trimester- Primary documented in this encounter Care Teams Roll Clamp Operator Relationship Specialty Start Date End Date Tre Ba MD [facility] [facility] [address] [place], [place] [id number] PCP - General envelope press operator 01/15/22 Bassem Pathak MD [address] [place], [place] [id number] Assigned OBGYN Provider 08/16/23 documented as of this encounter
--- OUTSIDE RECORDS SUMMARY | 2023-09-11 07:27 | XMS_ITS | Encounter Summary ---
Author Organization [place] Address [facility] [place] [address] Care Team Providers Care Wellness Assistant Name Role Phone Tre Ba MD Primary Care Provide r Bassem Pathak MD Unavailable [phone] Reason for Referral * Diagnostic Imaging Ultrasound (Routine) - Pending Review Specialty Diagnoses / Procedures Referred By Contac t Referred To Contact Radiology. Diagnoses Pre-existing type 2 diabetes mellitus during in third trimester Procedures [facility] Luz Elena Qureshi MD [address] [place] [address] Referral ID Status Reason Start Date Expiration Date V isits Requested Visits Authorized [id number] Pending Review 09/02/2023 09/01/2024 1 1 * Diagnostic Imaging Ultrasound (Routine) - Pending Review Specialty Diagnoses / Procedures Referred By Contac t Referred To Contact Radiology. Diagnoses Pre-existing type 2 diabetes mellitus during in third trimester Procedures Luz Elena Steiner MD [address] [place] [address] Referral ID Status Reason Start Date Expiration Date V isits Requested Visits Authorized [id number] Pending Review 09/02/2023 09/01/2024 1 1 * Diagnostic Imaging Ultrasound (Routine) - Pending Review Specialty Diagnoses / Procedures Referred By Contac t Referred To Contact Radiology. Diagnoses Pre-existing type 2 diabetes mellitus during in third trimester Procedures [facility] BPP Single Luz Elena Betts MD [address] [place] [address] Referral ID Status Reason Start Date Expiration Date V isits Requested Visits Authorized [id number] Pending Review 09/02/2023 09/01/2024 1 1 * Diagnostic Imaging Ultrasound (Routine) - Pending Review Specialty Diagnoses / Procedures Referred By Contac t Referred To Contact Radiology. Diagnoses Pre-existing type 2 diabetes mellitus during in third trimester Procedures [facility] US Comprehensive Single F/U Luz Elena Betts MD [address] [place] [address] Referral ID Status Reason Start Date Expiration Date V isits Requested Visits Authorized [id number] Pending Review 09/02/2023 09/01/2024 1 1 Reason for Visit * Reason Comments Ultrasound BPP- GDMA2, BMI>30 Encounter Details Date Type Department Care Team (Late st Contact Info) Description 09/02/2023 12:15 PM CDT Office Visit [facility] Maternal Medicine [place] [address] [place] [phone] Luz Elena Betts MD [address] [place] [address] Pre-existing type 2 diabetes mellitus [...] Info) Description 09/15/2023 1:30 PM CDT Appointment [facility] Maternal Medicine [facility] [address] [place] [phone] Mitch Jernigan MD [address] [place], [place] [address] 09/15/2023 2:00 PM CDT Office Visit [facility] Maternal Medicine [facility] [address] [place] [phone] Mitch Jernigan MD [address] [place] [address] 09/17/2023 11:00 AM CDT Appointment [facility] [address] [place] [address] Cristiane Patel MD [address] [place] [address] 09/22/2023 11:45 AM CDT Appointment [facility] Maternal Medicine Center [place] [address] [place] [phone] Rachel Reyna MD [address] [place] [address] 09/22/2023 12:15 PM CDT Office Visit [facility] Maternal Medicine Center [place] [address] [place] [phone] Rachel Reyna MD [address] [place] [address] 09/29/2023 11:45 AM CDT Appointment [facility] Maternal Medicine [facility] [place] [address] [place] [phone] Luz Elena Betts MD [address] [place] [address] 09/29/2023 12:15 PM CDT Office Visit [facility] Maternal Medicine [facility] [place] [address] [place] [phone] Luz Elena Betts MD [address] [place] [address] 10/06/2023 11:45 AM CDT Appointment [facility] Maternal Medicine [facility] [place] [address] [place] [phone] Luz Elena Betts MD [address] [place], [place] [address] 10/06/2023 12:15 PM CDT Office Visit [facility] Maternal Medicine [facility] [address] [facility] [address] [place] [address] Luz Elena Betts MD [address] [place], [place] [phone] Scheduled Orders Name Type Priority Associated Diagnoses Orde r Schedule [facility] US Comprehensive Single F/U Imaging Routine Pre-existing type 2 diabetes mellitus during in third trimester Expected: 09/15/2023 (Approximate), Expires: 09/01/2024 [facility] BPP Single Imaging Routine Pre-existing type 2 diabetes mellitus during in third trimester Expected: 09/22/2023 (Approximate), Expires: 07/02/2024 [facility] BPP Single Imaging Routine Pre-existing type 2 diabetes mellitus during in third trimester Expected: 09/29/2023 (Approximate), Expires: 07/02/2024 [facility] BPP Single Imaging Routine Pre-existing type 2 diabetes mellitus during in third trimester Expected: 10/06/2023 (Approximate), Expires: 07/02/2024 documented as of this encounter Visit Diagnoses Diagnosis Pre-existing type 2 diabetes mellitus during in third trimester- Primary documented in this encounter Care Teams Wellness Assistant Relationship Specialty Start Date End Date Tre Ba MD [address] [place] [address] [facility] [address] [place] [address] PCP - General steel fitter 01/15/22 Bassem Pathak MD [address] [place], [place] [address] Assigned OBGYN Provider 08/16/23 documented as of this encounter
--- OUTSIDE RECORDS SUMMARY | 2023-09-11 07:27 | XMS_ITS | Encounter Summary ---
Author Organization [place] Address [address] [facility] [place] [address] Care Team Providers Care Nozzle Cement Sprayer Helper Name Role Phone Tre Ba MD Primary Care Provide r Bassem Pathak MD Unavailable Reason for Visit * Reason Comments Ultrasound BPP- T2DM on insulin , mild poly Encounter Details Date Type Department Care Team (Late st Contact Info) Description 08/25/2023 12:15 PM CDT Office Visit [facility] M[facility] Medicine [facility] [place] [address] [place] [address] Bassem Pathak MD [address] [place] [address] Luz Elena Betts MD [address] [place] [address] Pre-existing type 2 diabetes mellitus [...] Info) Description 09/15/2023 1:30 PM CDT Appointment [facility] Maternal Medicine [facility] [address] [place] [phone] Mitch Jernigan MD [address] [place] [phone] 09/15/2023 2:00 PM CDT Office Visit [facility] M[facility] [address] [place] [phone] Mitch Jernigan MD [address] [facility] [address] [id number] 09/17/2023 11:00 AM CDT Appointment [facility] [place] [phone] Cristiane Patel MD [address] [place] [address] 09/22/2023 11:45 AM CDT Appointment [facility] M[facility] Medicine [facility] [place] [address] [place] [phone] Rachel Reyna MD [address] [place] [address] 09/22/2023 12:15 PM CDT Office Visit [facility] Maternal Medicine [place] [address] [place] [phone] Rachel Reyna MD [address] [place] [address] 09/29/2023 11:45 AM CDT Appointment [facility] Maternal Medicine [place] [address] [place] [phone] Luz Elena Betts MD [address] [place] [address] 09/29/2023 12:15 PM CDT Office Visit [facility] Maternal Medicine [place] [address] [place] [phone] Luz Elena Betts MD [address] [place] [address] 10/06/2023 11:45 AM CDT Appointment [facility] Maternal Medicine [place] [address] [place] [phone] Luz Elena Betts MD [address] [place] [address] 10/06/2023 12:15 PM CDT Office Visit [facility] [place] [address] [facility] [address] [place] [address] Luz Elena Betts MD [address] [place], [place] [phone] documented as of this encounter Visit Diagnoses Diagnosis Pre-existing type 2 diabetes mellitus during in third trimester- Primary Polyhydramnios in third trimester complication, single or unspecified fetus documented in this encounter Care Teams Nozzle Cement Sprayer Helper Relationship Specialty Start Date End Date Tre Ba MD [address] [place] [address] [address] [place] [address] PCP - General welfare visitor 01/15/22 Bassem Pathak MD [address] [place], [place] [address] Assigned OBGYN Provider 08/16/23 documented as of this encounter
--- OUTSIDE RECORDS SUMMARY | 2023-09-11 07:27 | XMS_ITS | Encounter Summary ---
Author Organization [place] Address [address] [place] [address] Care Team Providers Care Chimney Sweeper Name Role Phone Tre Ba MD Primary Care Provide r Bassem Pathak MD Unavailable [phone] Encounter Details Date Type Department Care Team (Latest Contact Info) Description 09/08/2023 Travel Social History Tobacco Use Types Packs/Day [...] Info) Description 09/15/2023 1:30 PM CDT Appointment [facility] Maternal Medicine [facility] [place] [address] [facility] [address] [place] [address] Mitch Jernigan MD [address] [place] [address] 09/15/2023 2:00 PM CDT Office Visit [facility] [place] [address] [place] [phone] Mitch Jernigan MD [address] [place] [address] 09/17/2023 11:00 AM CDT Appointment [facility] [address] [place] [address] Cristiane Patel MD [address] [place] [address] 09/22/2023 11:45 AM CDT Appointment [facility] Maternal Medicine [facility] [address] [place] [phone] Rachel Reyna MD [address] [place] [address] 09/22/2023 12:15 PM CDT Office Visit [facility] [place] [address] [place] [phone] Rachel Reyna MD [address] [place] [address] 09/29/2023 11:45 AM CDT Appointment [facility] [place] [address] [place] [phone] Luz Elena Betts MD [address] [place] [address] 09/29/2023 12:15 PM CDT Office Visit [facility] [place] [address] [place] [phone] Luz Elena Betts MD [address] [place] [address] 10/06/2023 11:45 AM CDT Appointment [facility] Medicine [facility] [address] [place] [phone] Luz Elena Betts MD [address] [place], [place] [address] 10/06/2023 12:15 PM CDT Office Visit [facility] Maternal Medicine [facility] [address] [place] [phone] Luz Elena Betts MD [address] [place], [place] [phone] documented as of this encounter Visit Diagnoses Not on filedocumented in this encounter Care Teams Chimney Sweeper Relationship Specialty Start Date End Date Tre Ba MD [address] [place] [address] 100 [place] [address] PCP - General geothermal plant manager 01/15/22 Bassem Pathak MD [address] [place], [place] [phone] Assigned OBGYN Provider 08/16/23 documented as of this encounter
--- OUTSIDE RECORDS SUMMARY | 2023-09-11 07:28 | XMS_ITS | Encounter Summary ---
Author Organization [place] Address [address] [place] [address]. [place] [address] Care Team Providers Care Manager Marketing Communication Name Role Phone Tre Ba MD Primary Care Provide r Reason for Referral * (Routine) - Authorized Specialty Diagnoses / Procedures Referred [facility] Referred To Contact Cardiology Diagnoses with type 2 diabetes mellitus in third trimester Procedures Echo (TTE) Complete Cristiane Patel MD [address] [place] [address] [facility] [address] [place] [phone] Referral ID Status Reason Start Date Expiration Date V isits Requested Visits Authorized [id number] Authorized 07/24/2023 07/23/2024 1 1 * Diagnostic Imaging Ultrasound (Routine) - Pending Review Specialty Diagnoses / Procedures Referred By Contac t Referred To Contact Radiology. Diagnoses Diabetes mellitus, type 2 (H) Polyhydramnios affecting Procedures MFM US Comprehensive Single F/U Cristiane Patel MD [address] [place] [address] Referral ID Status Reason Start Date Expiration Date V isits Requested Visits Authorized [id number] Pending Review 07/24/2023 07/23/2024 1 1 * Diagnostic Imaging Ultrasound (Routine) - Pending Review Specialty Diagnoses / Procedures Referred By Contac t Referred To Contact Radiology. Diagnoses Diabetes mellitus, type 2 (H) Polyhydramnios affecting Procedures [facility] Cristiane Rubin MD [address] [place] [address] Referral ID Status Reason Start Date Expiration Date V isits Requested Visits Authorized [id number] Pending Review 07/24/2023 07/23/2024 1 1 * Diagnostic Imaging Ultrasound (Routine) - Pending Review Specialty Diagnoses / Procedures Referred By Contac t Referred To Contact Radiology. Diagnoses Diabetes mellitus, type 2 (H) Polyhydramnios affecting Procedures [facility] Cristiane Rubin MD [address] [place] [address] Referral ID Status Reason Start Date Expiration Date V isits Requested Visits Authorized [id number] Pending Review 07/24/2023 07/23/2024 1 1 Reason for Visit * Reason Comments Ultrasound L2- AMA, T2DM Encounter Details Date Type Department Care Team (Late st Contact Info) Description 07/24/2023 2:00 PM CDT Office Visit [facility] Maternal Medicine Center [place] [address] [facility] [address] [place] [address] Cristiane Patel MD [address] [place] [address] with type 2 diabetes mellitus in [...] in the Maternal- Medicine Center at the [facility] today. For a detailed report of the ultrasound examination, please see the ultrasound report which can be found under the imaging tab. If you have questions regarding today's evaluation or if we can be of further service, please contact the Maternal- Medicine Center. Cristiane Patel MD Sharepoint Engineer, [facility] Maternal- Medicine [phone] (Pager) documented in this encounter Nursing Notes * Katina Espinoza RN - 07/24/2023 2:00 PM CDT Patient reports positive movement, no pain, no contractions, leaking of fluid, or bleeding. Reports blood sugar values elevated- fasting this morning was 175 reports after meals often 220. Has appointment in [place] next week to discuss starting insulin. Patient denies headache, visual changes, nausea/vomiting, epigastric pain related to preeclampsia. SBAR given to TREVOR GRESHAM, see their note in Epic. documented in this encounter Plan of Treatment Upcoming Encounters Date Type Department Care Team (Late st Contact Info) Description 09/15/2023 1:30 PM CDT Appointment [facility] Maternal Medicine [facility] [address] [place] [address] Mitch Jernigan MD [address] [place] [address] 09/15/2023 2:00 PM CDT Office Visit [facility] Maternal Medicine [facility] [address] [place] [address] Mitch Jernigan MD [address] [place], [place] [address] 09/17/2023 11:00 AM CDT Appointment [facility] [address] [place] [address] Cristiane Patel MD [address] [place] [address] 09/22/2023 11:45 AM CDT Appointment [facility] Maternal Medicine [place] [address] [place] [phone] Rachel Reyna MD [address] [place] [address] 09/22/2023 12:15 PM CDT Office Visit [facility] Maternal Medicine [place] [address] [place] [phone] Rachel Reyna MD [address] [place] [address] 09/29/2023 11:45 AM CDT Appointment [facility] Maternal Medicine [facility] [address] [place] [phone] Luz Elena Betts MD [address] [place] [address] 09/29/2023 12:15 PM CDT Office Visit [facility] M[facility] Medicine [facility] [place] [address] [place] [phone] Luz Elena Betts MD [address] [place], [place] [address] 10/06/2023 11:45 AM CDT Appointment [facility] Maternal Medicine [facility] [address] [place] [phone] Luz Elena Betts MD [address] [place], [place] [address] 10/06/2023 12:15 PM CDT Office Visit [facility] Maternal Medicine [facility] [address] [place] [phone] Luz Elena Betts MD [address] [place], [place] [address] Scheduled Orders Name Type Priority Associated Diagnoses Orde r Schedule Echo (TTE) Complete Echocardiography Routine with type 2 diabetes mellitus in third trimester Expected: 08/07/2023 (Approximate), Expires: 07/23/2024 documented as of this encounter Results * [facility] US Comprehensive Single F/U (08/21/2023 12:39 [...] CDT ?Comp Follow Up ----- Pat. Name: GRACEJACK ? Study Date: ??08/21/2023 11:58am Pat. NO: ??[id number] ?Referring ??MD: HOMAR MEDRANO Site: ? National Expansion Recruiter: Yamila Dutton RDMS : ??1985 ?Age: ?? [...] lb 4 ?oz EFW by ? Hadlock ([id number]) Head / Face / Neck Biometry: Strategic Account Manager ?4.4 ? mm ANATOMY ----- The following [...] Heart / Thorax ?RVOT view. LVOT view. 6-vziurm-vfhvabb view. Spine ?Cervical spine. sex: male. MATERNAL STRUCTURES ----- Cervix ?Suboptimal Right Ovary ?Not examined Left Ovary ?Not examined RECOMMENDATION ----- We discussed the findings on today's ultrasound with the patient. The patient has the following ultrasounds already scheduled: 1) BPP once weekly at your clinic. 2) BPP once weekly at [facility]. 3) echo on 08/28/23 with Pediatric Cardiology. 4) growth assessment at [facility] in 4 weeks. Given the polyhydramnios [...] WILDER Study Date: 08/21/2023 11:58am Pat. NO: [id number] Referring MD: HOMAR MEDRANO Site: National Expansion Recruiter: Yamila Dutton RDMS : 1985 Age: 37 [...] EFW (lb,oz) 6 lb 4oz EFW by Alejandrinalock([id number]) Head / Face / Neck Biometry: Strategic Account Manager 4.4mm ANATOMY ----- The following structures appear normal: Head / Neck Cranium. Head size. Head shape.Lateral ventricles. Midline falx. Cavum septi pellucidi. Cerebellum.Cisterna magna. Thalami. Face Profile. Heart / Thorax 4-chamber view. Diaphragm. Abdomen Stomach. Kidneys. Bladder. Spine Thoracic spine. Lumbar spine.Sacral spine. The following structures were documented previously: Face Lips. Nose. Heart / Thorax RVOT view. LVOT view. 8-eqmptl-dmhkwiflvrh. Spine Cervical spine. sex: male. MATERNAL STRUCTURES ----- Cervix Suboptimal Right Ovary Not examined Left Ovary Not examined RECOMMENDATION ----- We discussed the findings on today's ultrasound with the patient. The patient has the following ultrasounds already scheduled: 1) BPP once weekly at your clinic. 2) BPP once weekly at [facility]. 3) echo on 08/28/23 with Pediatric Cardiology. 4) growth assessment at [facility] in 4 weeks. Given the polyhydramnios [...] 5. BPP is reassuring. Cristiane Patel MD [facility] US ORDERABLE S * [facility] BPP Single (08/14/2023 3:54 PM CDT) Anatomical Region Laterality Modality Ultrasound 08/14/2023 3:35 PM CDT Impressions 08/14/2023 4:06 PM CDT IMPRESSION ----- 1) Mild polyhydramnios. 2) BPP is reassuring. Narrative 08/14/2023 4:06 PM CDT ?BPP ----- Pat. Name: JACK WILDER ? Study Date: ??08/14/2023 3:35pm Pat. NO: ??[id number] ?Referring ??MD: HOMAR MEDRANO Site: ? National Expansion Recruiter: Gemma Pinzon RDMS : ??1985 ?Age: ?? [...] has not contacted your office or her parking attendant. Currently we are not reviewing her blood [...] WILDER Study Date: 08/14/2023 3:35pm Pat. NO: [id number] Referring MD: HOMAR MEDRANO Site: National Expansion Recruiter: Gemma Pinzon RDMS : 1985 Age: 37 [...] and has notcontacted your office or her parking attendant. Currently we are not reviewing her blood [...] 2) BPP is reassuring. Cristiane Patel MD [facility] BPP Single (07/30/2023 3:46 PM CDT) Anatomical [...] ? Study Date: ??07/30/2023 3:27pm Pat. NO: ??[id number] ?Referring ??MD: HOMAR MEDRANO Site: ??[place] ? National Expansion Recruiter: Lashonda Barlow RDMS : ??1985 ?Age: ?? [...] with MFM and once with PCP in [place]. Recommend delivery for GDM A2 and pregestational: ? Well controlled: [id number] ? Poorly controlled: [id number]-[id number] ? Failed in-hospital attempt at control: [id number] Thank you for the opportunity to participate in the care of this patient. If you have questions regarding today's evaluation or if we can be of further service, please contact the Maternal- Medicine Center. anomalies may be present but not detected Procedure Note Bassem Pathak MD - 07/30/2023 BPP ----- Pat. Name: JACK WILDER Study Date: 07/30/2023 3:27pm Pat. NO: [id number] Referring MD: HOMAR MEDRANO Site: [facility] National Expansion Recruiter: Lashonda Barlow RDMS : 1985 Age: 37 [...] with twice weekly BPP, once here with [facility] and once withPCP in [place]. Recommend delivery for GDM A2 and pregestational: ? Well controlled: [id number]-39n2w ? Poorly controlled: [id number]-43k0m ? Failed in-hospital attempt at control: [id number]-[id number] Thank you for the opportunity to participate [...] fluid volume appears normal. Cristiane Patel MD [facility] US ORDERABLE S documented in this encounter Visit Diagnoses Diagnosis with type 2 diabetes mellitus in third trimester- Primary Polyhydramnios affecting Polyhydramnios affecting Polyhydramnios affecting Polyhydramnios affecting documented in this encounter Care Teams Manager Marketing Communication Relationship Specialty Start Date End Date Tre Ba MD [facility] [address] [address] PCP - General automation application engineer 01/15/22 documented as of this encounter
--- OUTSIDE RECORDS SUMMARY | 2023-09-11 07:28 | XMS_ITS | Encounter Summary ---
Author Organization [place] Address [facility] [place] [address] Care Team Providers Care Business Resiliency Manager Name Role Phone Tre Ba MD Primary Care Provide r Reason for Referral * Diagnostic Imaging Ultrasound (Routine) - Pending Review Specialty Diagnoses / Procedures Referred By Contac t Referred To Contact Radiology. Diagnoses Pre-existing type 2 diabetes mellitus during in third trimester Procedures [facility] Bassem Dhillon MD [address] [facility] [address] [address] Referral ID Status Reason Start Date Expiration Date V isits Requested Visits Authorized [id number] Pending Review 07/30/2023 07/29/2024 1 1 * Diagnostic Imaging Ultrasound (Routine) - Pending Review Specialty Diagnoses / Procedures Referred By Contac t Referred To Contact Radiology. Diagnoses Pre-existing type 2 diabetes mellitus during in third trimester Procedures Bassem Ackerman MD [address] [address] Referral ID Status Reason Start Date Expiration Date V isits Requested Visits Authorized [id number] Pending Review 07/30/2023 07/29/2024 1 1 * Diagnostic Imaging Ultrasound (Routine) - Pending Review Specialty Diagnoses / Procedures Referred By Contac t Referred To Contact Radiology. Diagnoses Pre-existing type 2 diabetes mellitus during in third trimester Procedures [facility] Bassem Dhillon MD [address] [place] [address] Referral ID Status Reason Start Date Expiration Date V isits Requested Visits Authorized [id number] Pending Review 07/30/2023 07/29/2024 1 1 Reason for Visit * Reason Comments Ultrasound BPP: DM2 - poorly co ntrolled Encounter Details Date Type Department Care Team (Late st Contact Info) Description 07/30/2023 4:00 PM CDT Office Visit [facility] Maternal Medicine Center [address] [place] [address] Bassem Pathak MD [address] [place], [place] [id number] Pre-existing type 2 diabetes mellitus during in [...] 07/30/2023 4:00 PM CDT Patient presents to [facility] for BPP at 29w5d due to DM2 - poorly controlled. Positive movement. Denies LOF, vaginal bleeding or cramping/contractions. SBAR given to TREVOR GRESHAM, see their note in Epic. documented in this encounter Plan of Treatment Upcoming Encounters Date Type Department Care Team (Late st Contact Info) Description 09/15/2023 1:[address] [facility] Maternal Medicine [place] [address] [facility] [address] [place] [phone] Mitch Jernigan MD [address] [place] [address] 09/15/2023 2:00 PM CDT Office Visit [facility] Medicine [place] [address] [facility] [address] [place] [phone] Mitch Jernigan MD [address] [place] [address] 09/17/2023 11:00 AM CDT Appointment [facility] Heart Care [address] [place] [phone] Cristiane Patel MD [address] [place] [address] 09/22/2023 11:[address] [facility] Maternal Medicine [place] [address] [facility] [address] [place] [phone] Rachel Reyna MD [address] [place] [address] 09/22/2023 12:15 PM CDT Office Visit [facility] Medicine [place] [address] [phone] Rachel Reyna MD [address] [place] [address] 09/29/2023 11:[address] [facility] Maternal Medicine [place] [address] [place] [address] Luz Elena Betts MD [address] [place] [address] 09/29/2023 12:15 PM CDT Office Visit [facility] Maternal Medicine [place] [address] [place] [phone] Luz Elena Betts MD [address] [place] [address] 10/06/2023 11:45 AM CDT Appointment [facility] Medicine [place] [address] [place] [phone] Luz Elena Betts MD [address] [place] [address] 10/06/2023 12:15 PM CDT Office Visit [facility] Maternal Medicine [place] [address] [place] [phone] Luz Elena Betts MD [address] [place] [address] documented as of this encounter Results * MFM BPP Single (09/08/2023 12:22 PM CDT) Anatomical Region Laterality Modality Ultrasound 09/08/2023 12:0 1 PM CDT Impressions 09/08/2023 12:24 PM CDT IMPRESSION ----- 1) Mild polyhydramnios. 2) BPP is reassuring. Narrative 09/08/2023 12:24 PM CDT ?BPP ----- Pat. Name: JACK EDWARDS ? Study Date: ??09/08/2023 12:01pm Pat. NO: ??[id number] ?Referring ??MD: HOMAR MEDRANO Site: ? On Site Services Specialist: Gemma Pinzon RDMS : ??1985 ?Age: ?? [...] BPP at your office weekly and at [facility] weekly. Return to primary provider for [...] EDWARDS Study Date: 09/08/2023 12:01pm Pat. NO: [id number] Referring MD: HOMAR MEDRANO Site: On Site Services Specialist: Gemma Pinzon RDMS : 1985 Age: 37 [...] BPP at your office weekly and [facility] Return to primary provider for continued care. Thank-you for the opportunity to participate in the care of this patient.If you have questions regarding today's evaluation or if we can be offurther service, please contact the Maternal- Medicine Center. anomalies may be present but not detected IMPRESSION ----- 1) Mild polyhydramnios. 2) BPP is reassuring. Bassem Pathak MD [facility] Julian Lambert BPP Single (09/02/2023 12:22 PM CDT) Anatomical Region Laterality Modality Ultrasound 09/02/2023 11:5 8 AM CDT Impressions 09/02/2023 4:11 PM CDT IMPRESSION ----- 1) Gonzalez intrauterine at 34w 4d gestational age. 2) The BPP is reassuring. 3) Mild polyhydramnios was again noted. Narrative 09/02/2023 4:11 PM CDT ?BPP ----- Pat. Name: JACK EDWARDS ? Study Date: ??09/02/2023 11:58am Pat. NO: ??[id number] ?Referring ??: HOMAR MEDRANO Site: ? On Site Services Specialist: Lashonda Barlow RDMS : ??1985 ?Age: ?? [...] surveillance with twice weekly BPP, alternating between [facility] and [facility]. Return to primary provider for continued [...] EDWARDS Study Date: 09/02/2023 11:58am Pat. NO: [id number] Referring MD: HOMAR MEDRANO Site: On Site Services Specialist: Lashonda Barlow RDMS : 1985 Age: 37 [...] Continue surveillance with twice weekly [facility], [facility]. Return to primary provider for [...] was again noted. Bassem Pathak MD [facility] S * [facility] BPP Single (08/25/2023 12:05 PM CDT) Anatomical Region Laterality Modality Ultrasound 08/25/2023 11:4 8 AM CDT Impressions 08/25/2023 1:03 PM CDT IMPRESSION ----- 1) Gonzalez intrauterine at 33w 3d gestational age. 2) The BPP is reassuring. 3) Mild polyhydramnios is noted. Narrative 08/25/2023 1:03 PM CDT ?BPP ----- Pat. Name: JACK EDWARDS ? Study Date: ??08/25/2023 11:48am Pat. NO: ??[id number] ?Referring ??MD: HOMAR MEDRANO Site: ? On Site Services Specialist: Micha Gage RDMS : ??1985 ?Age: ?? [...] surveillance with twice weekly BPP, alternating between [facility] and [facility]. Return to primary provider for continued [...] EDWARDS Study Date: 08/25/2023 11:48am Pat. NO: [id number] Referring MD: HOMAR MEDRANO Site: On Site Services Specialist: Micha Gage RDMS : 1985 Age: 37 [...] Continue surveillance with twice weekly [facility], [facility] and [facility]. Return to primary provider for continued [...] Mild polyhydramnios is noted. Bassem Pathak MD [facility] ORDERABLE S documented in this encounter Visit Diagnoses Diagnosis Pre-existing type 2 diabetes mellitus during in third trimester- Primary Pre-existing type 2 diabetes mellitus during in third trimester Pre-existing type 2 diabetes mellitus during in third trimester Pre-existing type 2 diabetes mellitus during in third trimester documented in this encounter Care Teams Business Resiliency Manager Relationship Specialty Start Date End Date [facility] [address] [address] PCP - General marble mechanic helper 01/15/22 documented as of this encounter
--- OUTSIDE RECORDS SUMMARY | 2023-09-11 07:28 | XMS_ITS | Encounter Summary ---
Author Organization [place] Address [address] [facility] [address] Care Team Providers Care Teaching Dietitian Name Role Phone Tre Ba MD Primary Care Provide r Encounter Details Date Type Department Care Team (Late st Contact Info) Description 07/24/2023 Medical Correspondence [facility] Mgmt vcs [address] [place] [address] Scan, Non-Provider Social History Tobacco [...] Info) Description 09/15/2023 1:30 PM CDT Appointment [facility] Maternal Medicine Center [place] [address] [place] [address] Mitch Jernigan MD [address] [facility] [address] [place] [address] 09/15/2023 2:00 PM CDT Office Visit [facility] M[facility] Medicine Center [place] [address] [place] [address] Mitch Jernigan MD [address] [place], [place] [address] 09/17/2023 11:00 AM CDT Appointment [facility] Heart Care [address] [place] [address] Cristiane Patel MD [address] [place] [address] 09/22/2023 11:45 AM CDT Appointment [facility] Maternal Medicine [place] [address] [place] [phone] Rachel Reyna MD [address] [place] [address] 09/22/2023 12:15 PM CDT Office Visit [facility] Maternal Medicine Center [place] [address] [place] [phone] Rachel Reyna MD [address] [place] [address] 09/29/2023 11:45 AM CDT Appointment [facility] Maternal Medicine Center [place] [address] [place] [phone] Luz Elena Betts MD [address] [place] [address] 09/29/2023 12:15 PM CDT Office Visit [facility] M[facility] Medicine Center [place] [address] [place] [phone] Luz Elena Betts MD [address] [place] [address] 10/06/2023 11:45 AM CDT Appointment [facility] Maternal Medicine [facility] [address] [facility] [address] [place] [phone] Luz Elena Betts MD [address] [place] [address] 10/06/2023 12:15 PM CDT Office Visit [facility] Maternal Medicine [facility] [address] [facility] [address] [place] [phone] Luz Elena Betts MD [address] [place], [place] [address] documented as of this encounter Visit Diagnoses Not on filedocumented in this encounter Care Teams Teaching Dietitian Relationship Specialty Start Date End Date Tre Ba MD [facility] [address] [place] [address] PCP - General temp recruiter 01/15/22 documented as of this encounter
--- OUTSIDE RECORDS SUMMARY | 2023-09-11 07:28 | XMS_ITS | Encounter Summary ---
Author Organization [place] Address [address] [facility] [place] [address] Care Team Providers Care Clinical Research Manager Name Role Phone Tre Ba MD [...] 09/15/2023 1:[address] [facility] Maternal Medicine Center [place] [address] [facility] [address] [place] [address] Mitch Jernigan MD [address] [place], [place] [address] 09/15/2023 2:00 PM CDT Office [facility] Maternal Medicine Center [place] [address] [facility] [address] [place] [phone] Mitch Jernigan MD [address] [place], [place] [address] 09/17/2023 11:00 AM CDT Appointment [facility] Heart Care [address] [place] [phone] Cristiane Patel MD [address] [place] [address] 09/22/2023 11:[address] [facility] Maternal Medicine [facility] [address] [place] [phone] Rachel Reyna MD [address] [place] [address] 09/22/2023 12:15 PM CDT Office [facility] Maternal Medicine [place] [address] [place] [phone] Rachel Reyna MD [address] [place] [address] 09/29/2023 11:[address] [facility] Maternal Medicine [place] [address] [place] [phone] Luz Elena Betts MD [address] [place] [address] 09/29/2023 12:15 PM CDT Office [facility] Maternal Medicine Center [place] [address] [place] [phone] Luz Elena Betts MD [address] [place] [address] 10/06/2023 11:[address] [facility] Maternal Medicine [place] [address] [place] [phone] Luz Elena Betts MD [address] [place], [place] [address] 10/06/2023 12:15 PM CDT Office [facility] Maternal Medicine [facility] [address] [place] [phone] Luz Elena Betts MD [address] [place], [place] [address] documented as of this encounter Visit Diagnoses Not on filedocumented in this encounter Care Teams Clinical Research Manager Relationship Specialty Start Date End Date Tre Ba MD [facility] [facility] [address] [place] [address] PCP - General mobile ui/ux designer 01/15/22 documented as of this encounter
--- OUTSIDE RECORDS SUMMARY | 2023-09-11 07:28 | XMS_ITS | Encounter Summary ---
Author Organization [place] Address [address] [facility] [place] [address] Care Team Providers Care Treating Plant Pumper Name Role Phone Tre Ba MD Primary Care Provide r Reason for Referral * Diagnostic Imaging Ultrasound (Routine) - Pending Review Specialty Diagnoses / Procedures Referred By Temo taylor Referred To Contact Radiology. Diagnoses Diabetes mellitus, type 2 (H) Polyhydramnios affecting Procedures [facility] Cristiane Rubin MD [address] [place] [address] Referral ID Status Reason Start Date Expiration Date V isits Requested Visits Authorized [id number] Pending Review 07/24/2023 07/23/2024 1 1 Reason for Visit * Diagnostic Imaging Ultrasound (Routine) - Pending Review Specialty Diagnoses / Procedures Referred By Temo taylor Referred To Contact Radiology. Diagnoses Diabetes mellitus, type 2 (H) Polyhydramnios affecting Procedures [facility] Cristiane Rubin MD [address] [place] [address] Referral ID Status Reason Start Date Expiration Date V isits Requested Visits Authorized [id number] Pending Review 07/24/2023 07/23/2024 1 1 Encounter Details Date Type Department Care Team (Latest Contact Info) Description 08/14/2023 3:30 PM CDT - 08/14/2023 11:59 PM CDT Hospital Encounter [facility] Maternal Medicine Center [place] [address] [facility] [address] [place] [address] Cristiane Patel MD [address] [place], [place] [address] Mitch Jernigan MD [address] [place] [address] Polyhydramnios affecting Discharge Disposition: Home or Self [...] Description 09/15/2023 1:30 PM CDT Appointment [facility] Maternal Medicine Center [place] [address] [place] [phone] Mitch Jernigan MD [address] [place], [place] [address] 09/15/2023 2:00 PM CDT Office Visit [facility] Maternal Medicine [facility] [place] [address] [place] [phone] Mitch Jernigan MD [address] [place], [place] [address] 09/17/2023 11:00 AM CDT Appointment [facility] Heart Care [address] [place] [address] Cristiane Patel MD [address] [place] [address] 09/22/2023 11:45 AM CDT Appointment [facility] Maternal Medicine [place] [address] [place] [phone] Rachel Reyna MD [address] [place] [address] 09/22/2023 12:15 PM CDT Office Visit [facility] Maternal Medicine [facility] [place] [address] [place] [phone] Rachel Reyna MD [address] [place] [address] 09/29/2023 11:45 AM CDT Appointment [facility] Maternal Medicine [facility] [place] [address] [place] [phone] Luz Elena Betts MD [address] [place] [address] 09/29/2023 12:15 PM CDT Office Visit [facility] Maternal Medicine [facility] [place] [address] [place] [phone] Luz Elena Betts MD [address] [place] [address] 10/06/2023 11:45 AM CDT Appointment [facility] Maternal Medicine [facility] [address] [place] [address] Luz Elena Betts MD [address] [place], [place] [address] 10/06/2023 12:15 PM CDT Office Visit [facility] Maternal Medicine [facility] [address] [place] [address] Luz Elena Betts MD [address] [place] [address] documented as of this [...] ? Study Date: ??08/14/2023 3:35pm Pat. NO: ??[id number] ?Referring ??MD: HOMAR MEDRANO Site: ? Toll Ticket Clerk: Gemma Pinzon [facility] : ??1985 ?Age: ?? 37 ----- INDICATION [...] has not contacted your office or her hoop maker helper machine. Currently we are not reviewing her blood [...] WILDER Study Date: 08/14/2023 3:35pm Pat. NO: [id number] Referring MD: HOMAR MEDRANO Site: Toll Ticket Clerk: Gemma Pinzon RDMS : 1985 Age: 37 [...] and has notcontacted your office or her hoop maker helper machine. Currently we are not reviewing her blood [...] 2) BPP is reassuring. Cristiane Patel MD [facility] ORDERABLE S documented in this encounter Visit Diagnoses Diagnosis Polyhydramnios affecting documented in this encounter Care Teams Treating Plant Pumper Relationship Specialty Start Date End Date Tre Ba MD [address] [address] PCP - General senior sales associate 01/15/22 documented as of this encounter
--- OUTSIDE RECORDS SUMMARY | 2023-09-11 07:28 | XMS_ITS | Encounter Summary ---
Author Organization [place] Address [address] [facility] [place] [address] Care Team Providers Care Wet Crown Blocking Operator Name Role Phone Tre Ba MD Primary Care Provide r Reason for Visit * Reason Comments Ultrasound L2-AMA Encounter Details Date Type Department Care Team ([facility] Contact Info) Description 07/08/2023 PRE VISIT [facility] Maternal Medicine [facility] [address] [place] [address] Melissa Aguiar RN Ultrasound (L2-AMA) [...] Upcoming Encounters Date Type Department Care Team ([facility] Contact Info) Description 09/15/2023 1:30 PM CDT Appointment [facility] Maternal Medicine [facility] [address] [place] [address] Mitch Jernigan MD [address] [facility] [address] [place], [place] [address] 09/15/2023 2:00 PM CDT Office Visit [facility] Maternal Medicine [facility] [address] [place] [address] Mitch Jernigan MD [address] [place] [address] 09/17/2023 11:00 AM CDT Appointment [facility] Heart Care [address] [place] [phone] Cristiane Patel MD [address] [place] [address] 09/22/2023 11:45 AM CDT Appointment [facility] Maternal Medicine [place] [address] [place] [phone] Rachel Reyna MD [address] [place] [address] 09/22/2023 12:15 PM CDT Office Visit [facility] Maternal Medicine [place] [address] [place] [phone] Rachel Reyna MD [address] [place] [address] 09/29/2023 11:45 AM CDT Appointment [facility] Maternal Medicine [place] [address] [place] [phone] Luz Elena Betts MD [address] [place] [address] 09/29/2023 12:15 PM CDT Office Visit [facility] Maternal Medicine Center [place] [address] [place] [phone] Luz Elena Betts MD [address] [place] [address] 10/06/2023 11:45 AM CDT Appointment [facility] Maternal Medicine [facility] [address] [facility] [address] [place] [phone] Luz Elena Betts MD [address] [place] [address] 10/06/2023 12:15 PM CDT Office Visit [facility] Maternal Medicine [facility] [address] [facility] [address] [place] [phone] Luz Elena Betts MD [address] [place] [address] documented as of this encounter Visit Diagnoses Not on filedocumented in this encounter Care Teams Wet Crown Blocking Operator Relationship Specialty Start Date End Date Tre Ba MD [facility] [address] [place], [place] [id number] PCP - General wax room supervisor 01/15/22 documented as of this encounter
--- OUTSIDE RECORDS SUMMARY | 2023-09-11 07:28 | XMS_ITS | Encounter Summary ---
Author Organization [place] Address [facility] [place] [address] Care Team Providers Care [employer] Spanish Teacher Name Role Phone Tre Ba MD Primary Care Provide r Reason for Referral * Diagnostic Imaging Ultrasound (Routine) - Pending Review Specialty Diagnoses / Procedures Referred By Temo taylor Referred To Contact Radiology. Diagnoses related condition, antepartum Procedures [facility] US Comprehensive Single Homar Medrano APRN CNP [facility] [address] [place] [address] Referral ID Status Reason Start Date Expiration Date V isits Requested Visits Authorized [id number] Pending Review 07/03/2023 07/02/2024 1 1 Reason for Visit * Diagnostic Imaging Ultrasound (Routine) - Pending Review Specialty Diagnoses / Procedures Referred By Temo taylor Referred To Contact Radiology. Diagnoses related condition, antepartum Procedures [facility] US Comprehensive Single Homar Medrano APRN [facility] [address] [place] [address] Referral ID Status Reason Start Date Expiration Date V isits Requested Visits Authorized [id number] Pending Review 07/03/2023 07/02/2024 1 1 Encounter Details Date Type Department Care Team (Latest Contact Info) Description 07/24/2023 12:50 PM CDT - 07/24/2023 11:59 PM CDT Hospital Encounter [facility] M[facility] Medicine [facility] [place] [address] [address] [place] [address] Cristiane Patel MD [address] [place], [place] [address] related condition, antepartum Discharge Disposition: Home or [...] Info) Description 09/15/2023 1:30 PM CDT Appointment [facility] [place] [address] [facility] [facility] [address] [place] [phone] Mitch Jernigan MD [address] [place], [place] [address] 09/15/2023 2:00 PM CDT Office Visit [facility] Maternal Medicine [facility] [address] [facility] [address] [place] [phone] Mitch Jernigan MD [address] [place], [place] [address] 09/17/2023 11:00 AM CDT Appointment [facility] Heart Care [address] [place] [address] Cristiane Patel MD [address] [place] [address] 09/22/2023 11:45 AM CDT Appointment [facility] Maternal Medicine [place] [address] [place] [phone] Rachel Reyna MD [address] [place] [address] 09/22/2023 12:15 PM CDT Office Visit [facility] Maternal Medicine [place] [address] [place] [phone] Rachel Reyna MD [address] [place] [address] 09/29/2023 11:45 AM CDT Appointment [facility] Maternal Medicine [place] [address] [place] [phone] Luz Elena Betts MD [address] [place] [address] 09/29/2023 12:15 PM CDT Office Visit [facility] Maternal Medicine [place] [address] [place] [phone] Luz Elena Betts MD [address] [place] [address] 10/06/2023 11:45 AM CDT Appointment [facility] Maternal Medicine [place] [address] [place] [phone] Luz Elena Betts MD [address] [place] [address] 10/06/2023 12:15 PM CDT Office Visit [facility] [place] [address] [facility] [address] [place] [address] Luz Elena Betts MD [address] [place] [address] documented as of this encounter Procedures Procedure Name Priority Date/Time Associated Diagnosis Comments [facility] US COMPREHENSIVE SINGLE Routine 07/24/2023 2:13 PM CDT related condition, antepartum documented in this encounter Results * [facility] US Comprehensive Single (07/24/2023 2:13 [...] ? Study Date: ??07/24/2023 1:32pm Pat. NO: ??[id number] ?Referring ??MD: HOMAR MEDRANO Site: [facility] ? Charge Histotechnologist: Sujatha Joyce RDMS : ??1985 ?Age: ?? [...] 3 lb 10 ?oz EFW by ?Hadlock ([id number]) Head / Face / Neck Biometry: Apprentice Jockey ? 3.6 ? mm CM ?5.7 ? [...] cava. Inferior vena cava. 3-vessel ? view. 3-anoair-bjivnvw view. Cardiac position. Cardiac size. Cardiac rhythm. [...] are between 220-240. She is following a occupational hygienist and has met with a center mgr. No one has started her on insulin [...] medical record, and communicating with other health clinical care leader and/or care coordination. Please see note for details. Procedure Note Cristiane Patel MD - 07/24/2023 Comprehensive ----- Pat. Name: JACK WILDER Study Date: 07/24/2023 1:32pm Pat. NO: [id number] Referring MD: HOMAR MEDRANO Site: [facility] Charge Histotechnologist: Sujatha Joyce RDMS : 1985 Age: 37 [...] 3 lb 10 oz EFW by Hadlock ([id number]) Head / Face / Neck Biometry: Apprentice Jockey 3.6 mm CM 5.7 mm Nasal bone [...] Superior venacava. Inferior vena cava. 3-vessel view. 2-umdujv-cyqrzgp view.Cardiac position. Cardiac size. Cardiac rhythm. Right [...] a diabetic educatorand has met with a center mgr. No one has started her on insulin [...] electronic medical record, andcommunicating with other health clinical care leader and/or carecoordination. Please see note for details. [...] 6. The BPP was 8. Homar Medrano APRN SPECIAL NEEDS LIBRARIAN IMG MFM US ORDERABLES documented in this encounter Visit Diagnoses Diagnosis related condition, antepartum documented in this encounter Care Teams [employer] Spanish Teacher Relationship Specialty Start Date End Date Tre Ba MD [address] [address] PCP - General hospitality housekeeper 01/15/22 documented as of this encounter
--- OUTSIDE RECORDS SUMMARY | 2023-09-11 07:28 | XMS_ITS | Encounter Summary ---
Author Organization [place] Address [address] [place] [address] Care Team Providers Care Area Coordinator Name Role Phone Tre Ba MD Primary Care Provide r Reason for Referral * Consultation (Routine: Next available opening) - Pending Review Specialty Diagnoses / Procedures Referred By Contac t Referred To Contact Diagnoses related condition, antepartum Homar Medrano APRN CNP [facility] [address] [place] [address] Referral ID Status Reason Start Date Expiration Date V isits Requested Visits Authorized [id number] Pending Review 07/03/2023 07/02/2024 1 1 Comments AMA * Diagnostic Imaging Ultrasound (Routine) - Pending Review Specialty Diagnoses / Procedures Referred By Contac t Referred To Contact Radiology. Diagnoses related condition, antepartum Procedures [facility] US Comprehensive Single Homar Medrano APRN CNP [facility] [address] [place] [address] Referral ID Status Reason Start Date Expiration Date V isits Requested Visits Authorized [id number] Pending Review 07/03/2023 07/02/2024 1 1 * Consultation (Routine: Next available opening) - Pending Review Specialty Diagnoses / Procedures Referred By Contac t Referred To Contact Diagnoses related condition, antepartum Homar Medrano APRN CNP [facility] [address] [place] [address] [facility] [address] [facility] [address] [place] [address] Referral ID Status Reason Start Date Expiration Date V isits Requested Visits Authorized [id number] Pending Review 07/03/2023 07/02/2024 1 1 Question Answer Preferred Location: [facility] [place] 10/10/2023 Ultrasound Complete US (14-17.6 weeks GA) US PROC NONE MFM Issue Advanced Maternal Age *MUST request Genetic Counseling MFM MD Consultation (unrelated to Ultrasound findings): No Inflammatory Bowel Disease Clinic: Joint MFM and GI Consultation: No Chronic Kidney Disease: Joint MFM and Nephrology Consultation No Genetic Counseling Consultation: Yes fax Homar Medrano [facility], Comments There is no height or [...] st Contact Info) Description 07/03/2023 Transcribe Orders [facility] M[facility] Medicine [facility] [place] [address] [facility] [address] [place] [address] Homar Medrano APRN CNP [facility] [address] [place] [address] related condition, antepartum (Primary Dx) Social History [...] Appointment [facility] Maternal Medicine [place] [address] [facility] [address] [place] [phone] Mitch Jernigan MD [address] [place], [place] [address] 09/15/2023 2:00 PM CDT Office Visit [facility] Maternal Medicine [place] [address] [facility] [address] [place] [phone] Mitch Jernigan MD [address] [place], [place] [address] 09/17/2023 11:00 AM CDT Appointment [facility] Heart Care [address] [place] [phone] Cristiane Patel MD [address] [place], [place] [address] 09/22/2023 11:45 AM CDT Appointment [facility] Maternal Medicine [place] [address] [facility] [address] [place] [phone] Rachel Reyna MD [address] [place], [place] [address] 09/22/2023 12:15 PM CDT Office Visit [facility] Maternal Medicine [place] [address] [facility] [address] [place] [phone] Rachel Reyna MD [address] [place] [address] 09/29/2023 11:45 AM CDT Appointment [facility] Maternal Medicine [facility] [address] [place] [address] Luz Elena Betts MD [address] [place] [address] 09/29/2023 12:15 PM CDT Office Visit [facility] Maternal Medicine [place] [address] [place] [address] Luz Elena Betst MD [address] [place] [address] 10/06/2023 11:45 AM CDT Appointment [facility] Maternal Medicine [place] [address] [place] [phone] Luz Elena Betts MD [address] [place] [address] 10/06/2023 12:15 PM CDT Office Visit [facility] Maternal Medicine [place] [address] [place] [phone] Luz Elena Betts MD [address] [place] [address] Scheduled Referrals Name Type Priority Associated Diagnoses Orde r Schedule Mat Med Ctr Referral - Referral Routine: Next available opening related condition, antepartum Expected: 07/03/2023 (Approximate), Expires: 12/30/2023 [facility] Genetic Counseling Referral Routine: Next available opening related condition, antepartum Expected: 07/03/2023 (Approximate), Expires: 07/02/2024 documented as of this encounter Results * [facility] US Comprehensive Single (07/24/2023 2:13 PM CDT) [...] ? Study Date: ??07/24/2023 1:32pm Pat. NO: ??[id number] ?Referring ??MD: HOMAR MEDRANO Site: ??[facility] ? Certified Veterinary Technician: Sujatha Joyce RDMS : ??1985 ?Age: [...] 3 lb 10 ?oz EFW by ?Hadlock ([id number]-[id number]-MI) Head / Face / Neck Biometry: Woodwind Reeds Cutter ? 3.6 ? mm CM ?5.7 ? [...] cava. Inferior vena cava. 3-vessel ? view. 7-lygcpx-sssaequ view. Cardiac position. Cardiac size. Cardiac rhythm. [...] movements 2: tone 2: Amniotic fluid volume 8/ Biophysical profile score RECOMMENDATION ----- Thank-you for [...] are between 220-240. She is following a peer educator and has met with a roll mechanic. No one has started her on [...] Pat. Name: JACK WILDER Study Date: 07/24/2023 1:[facility] Pat. NO: [id number] Referring MD: HOMAR MEDRANO Site: [facility] Certified Veterinary Technician: Sujatha Joyce RDMS : 1985 Age: [...] 3 lb 10 oz EFW by Hadlock ([id number]-FL) Head / Face / Neck Biometry: Woodwind Reeds Cutter 3.6 mm CM 5.7 mm Nasal bone [...] Superior venacava. Inferior vena cava. 3-vessel view. 5-ejfvtv-gpklayz view.Cardiac position. Cardiac size. Cardiac rhythm. Right [...] a diabetic educatorand has met with a roll mechanic. No one has started her on [...] The BPP was 8/8. Homar Medrano APRN KNIFE EDGER IMG MFM US ORDERABLES documented in this encounter Visit Diagnoses Diagnosis related condition, antepartum- Primary related condition, antepartum documented in this encounter Care Teams Area Coordinator Relationship Specialty Start Date End Date [facility] [address] [place] [address] PCP - General auto hauler 01/15/22 documented as of this encounter
--- OUTSIDE RECORDS SUMMARY | 2023-09-11 07:28 | XMS_ITS | Encounter Summary ---
Author Organization [place] Address [address] [facility] [place] [address] Care Team Providers Care Dermatology Technician Name Role Phone Tre Ba MD Primary Care Provide r Reason for Visit * Reason Onset Date Comments Results 08/03/2023 Low Risk Expande d NIPT Encounter Details Date Type Department Care Team (Late Contact Info) Description 08/03/2023 Telephone [facility] Maternal Medicine Center [address] [place] [address] Laura Abdi GC [address] [facility] [place] [address] Results (Low Risk Expanded NIPT) [...] 1:30 PM CDT Appointment [facility] M[facility] Medicine [facility] [place] [address] [place] [address] [place] [address] Mitch Jernigan MD [address] [place] [address] 09/15/2023 2:00 PM CDT Office Visit [facility] [place] [address] [place] [address] [place] [phone] Mitch Jernigan MD [address] [place] [address] 09/17/2023 11:00 AM CDT Appointment [facility] Heart Care [address] [place] [phone] Cristiane Patel MD [address] [place] [address] 09/22/2023 11:45 AM CDT Appointment [facility] [place] [address] [place] [address] [place] [phone] Rachel Reyna MD [address] [place] [address] 09/22/2023 12:15 PM CDT Office Visit [facility] [place] [address] [place] [address] [place] [phone] Rachel Reyna MD [address] [place] [address] 09/29/2023 11:45 AM CDT Appointment [facility] [place] [address] [place] [address] [place] [phone] Luz Elena Betts MD [address] [place] [address] 09/29/2023 12:15 PM CDT Office Visit [facility] Maternal Medicine [facility] [address] [place] [address] [place] [address] Luz Elena Betts MD [address] [place] [address] 10/06/2023 11:45 AM CDT Appointment [facility] Maternal Medicine [facility] [address] [place] [address] [place] [address] Luz Elena Betts MD [address] [place], [place] [address] 10/06/2023 12:15 PM CDT Office Visit [facility] Maternal Medicine [facility] [address] [place] [address] [place] [phone] Luz Elena Betts MD [address] [place] [address] documented as of this encounter Visit Diagnoses Not on filedocumented in this encounter Care Teams Dermatology Technician Relationship Specialty Start Date End Date Tre Ba MD [facility] [facility] [address] [place] [address] PCP - General senior java architect 01/15/22 documented as of this encounter
--- OUTSIDE RECORDS SUMMARY | 2023-09-11 07:28 | XMS_ITS | Encounter Summary ---
Author Organization [place] Address [address] [facility] [place] [address] Care Team Providers Care Oil Change Technician Name Role Phone Tre Ba MD Primary Care Provide r Reason for Visit * Reason Comments Genetic Counseling * Consultation (Routine: Next available opening) - Pending Review Specialty Diagnoses / Procedures Referred By Contac t Referred To Contact Diagnoses related condition, antepartum Ilene Kaplan APRN [facility] [address] [place] [address] Referral ID Status Reason Start Date Expiration Date V isits Requested Visits Authorized [id number] Pending Review 07/03/2023 07/02/2024 1 1 Encounter Details Date Type Department Care Team (Late st Contact Info) Description 07/24/2023 12:45 PM CDT Office Visit [facility] Maternal Medicine Center [place] [address] [facility] [address] [place] [address] Cristiane Patel MD [address] [place] [address] Laura Abdi GC [address] [place] [address] Multigravida of advanced maternal age in [...] Abdi, GC - 07/24/2023 12:45 PM CDT [facility] Genetic Counseling Consult Patient: Sheba Wlider Date of : 1985 Date of Service: 07/24/23 Sheba was seen at the [facility] for genetic consultation. Theindication for genetic counseling is advanced maternal age. The patient was unaccompanied to this visit. The session was conducted in Nigerian. IMPRESSION/ PLAN 1. Sheba has not had genetic screening in this but elected to have screening today. 2. During today's [facility] visit, Sheba had a blood draw for expanded non-invasive testing (also called NIPT, NIPS, or cell-free DNA) through [employer] ([employer]). The expanded NIPT screens for trisomy 21, [...] an emaildiscussing the results be sent to [email or web address] Sheba was informed that results, including sex, will be available in [employer]. 3. Sheba had a level II comprehensive anatomy ultrasound today. Please see the ultrasound report for further details. 4. [facility] recommends weekly BPPs starting next week. [...] in these pregnancies, please refer to the [facility] note for more details. FAMILY HISTORY A three-generation family history was obtained today and is scanned under the Media tab in [employer]. The family history was reported by Sheba. [...] of recurrent loss shecan reach out to [facility] or her OB. Sheba has a [...] wants more information they can contact the [facility] Cancer Risk Management Program ( [...] of other microdeletion syndromes (expanded NIPT through [facility]). At this time, it is not possible [...] pleasure to be involved with Sheba???s care. Xrcf-za-lxwc time of the meeting was 30 minutes. Laura Abdi MS, [facility] Maternal Medicine Office: [phone] MFM: [phone] [facility] documented in this encounter Plan of Treatment Upcoming Encounters Date Type Department Care Team (Late st Contact Info) Description 09/15/2023 1:30 PM CDT Appointment [facility] Maternal Medicine [place] [address] [facility] [facility] [address] [place] [phone] Mitch Jernigan MD [address] [place], [place] [address] 09/15/2023 2:00 PM CDT Office Visit [facility] Medicine [place] [address] [facility] [address] [place] [phone] Mitch Jernigan MD [address] [place], [place] [address] 09/17/2023 11:00 AM CDT Appointment [facility] Heart Care [address] [facility] [place] [phone] Cristiane Patel MD [address] [place], [place] [address] 09/22/2023 11:45 AM CDT Appointment [facility] Maternal Medicine [place] [address] [facility] [address] [place] [phone] Rachel Reyna MD [address] [place] [address] 09/22/2023 12:15 PM CDT Office Visit [facility] Medicine [place] [address] [place] [phone] Rachel Reyna MD [address] [place] [address] 09/29/2023 11:45 AM CDT Appointment [facility] Medicine [place] [address] [place] [phone] Luz Elena Betts MD [address] [place] [address] 09/29/2023 12:15 PM CDT Office Visit [facility] Medicine [place] [address] [place] [phone] Luz Elena Betts MD [address] [place] [address] 10/06/2023 11:45 AM CDT Appointment [facility] [place] [address] [place] [phone] Luz Elena Betts MD [address] [place] [address] 10/06/2023 12:15 PM CDT Office Visit [facility] Medicine [place] [address] [place] [phone] Luz Elena Betts MD [address] [place], [place] [address] documented as of this encounter Results * [facility] Non-Invasive Screening???Prequel (07/24/2023 2:49 PM CDT) See Scanned Result [facility] NON-INVASIVE SCREENING PREQUEL-Scann ed 08/02/2023 7:16 PM CDT [facility] Blood STRUCTURE OF RIGHT UPPER LIMB / Unknown Venipuncture / Unknown 07/24/2023 2:49 PM CDT 07/24/2023 2:49 PM CDT Laura Abdi GC LAB - BLOOD ORDERABL ES [facility] [address] [place], [place] [address] [place] [address] documented in this encounter Visit Diagnoses Diagnosis Multigravida of advanced maternal age in third trimester- Primary related condition, antepartum documented in this encounter Care Teams Oil Change Technician Relationship Specialty Start Date End Date Tre Ba MD [address] [address] PCP - General stock clipper 01/15/22 documented as of this encounter
--- OUTSIDE RECORDS SUMMARY | 2023-09-11 07:28 | XMS_ITS | Encounter Summary ---
Author Organization [place] Address [address] [place] [address] Care Team Providers Care Paralegal Secretary Name Role Phone Tre Ba MD Primary Care Provide r Reason for Visit * Reason Comments Ultrasound BPP-uncontrolled Typ e 2 DM Encounter Details Date Type Department Care Team (Late st Contact Info) Description 08/14/2023 4:00 PM CDT Office Visit [facility] [place] [address] [facility] [address] [place] [address] Cristiane Patel MD [address] [place] [address] Mitch Jernigan MD [address] [place] [address] Pre-existing type 2 diabetes mellitus [...] for details of today's US at the [facility]. Mitch Jernigan MD Maternal- Medicine documented [...] message for educator at [facility] in [place] where patient states she gets her care. Also called to primary OB clinic([facility]) at 1555 and spokewith JD Mtz. [...] was placed again to [facility] in [place]. Spoke with interior wall assembler Angelica. Patient confirmed with Angelica that she has her meal time insulin at home but is in need of her long acting insulin and has not been taking for one week as she was unable to get it at the pharmacy the day it was prescribed and was then out of town.Angelica sent in new prescription to [facility] in [place] per patient request. Plan made with patient to get insulin tonight and if unable to obtain at the pharmacy she will call the Endocrinology clinic to reach the fire prevention research engineer provider to assist her in getting her insulin. Patient agreeable to plan and verbalizes understanding of the importance of managing her blood glucose levels. Angelica requested patient call in on Thursday to report glucose levels with a interior wall assembler. All patient questions answered. SBAR was done with Dr. Jernigan. documented in this encounter Plan of Treatment Upcoming Encounters Date Type Department Care Team (Late st Contact Info) Description 09/15/2023 1:30 PM CDT Appointment [facility] Medicine [place] [address] [place] [phone] Mitch Jernigan MD [address] [place] [address] 09/15/2023 2:00 PM CDT Office Visit [facility] [place] [address] [facility] [address] [place] [phone] Mitch Jernigan MD [address] [place], [place] [address] 09/17/2023 11:00 AM CDT Appointment [facility] Heart Care [address] [place] [address] Cristiane Patel MD [address] [place], [place] [address] 09/22/2023 11:45 AM CDT Appointment [facility] Maternal Medicine [place] [address] [place] [phone] Rachel Reyna MD [address] [place], [place] [id number] 09/22/2023 12:15 PM CDT Office Visit [facility]aternal Medicine [place] [address] [place] [phone] Rachel Reyna MD [address] [place], [place] [id number] 09/29/2023 11:45 AM CDT Appointment [facility] Maternal Medicine [facility] [address] [place] [address] Luz Elena Betts MD [address] [place] [address] 09/29/2023 12:15 PM CDT Office Visit [facility] Maternal Medicine [place] [address] [place] [phone] Luz Elena Betts MD [address] [place] [address] 10/06/2023 11:45 AM CDT Appointment [facility] Maternal Medicine [place] [address] [place] [phone] Luz Elena Betts MD [address] [place] [address] 10/06/2023 12:15 PM CDT Office Visit [facility] Maternal Medicine [place] [address] [place] [phone] Luz Elena Betts MD [address] [place] [address] documented as of this encounter Visit Diagnoses Diagnosis Pre-existing type 2 diabetes mellitus during in third trimester- Primary Polyhydramnios affecting documented in this encounter Care Teams Paralegal Secretary Relationship Specialty Start Date End Date Tre Ba MD [address] [facility] [address] [place] [address] PCP - General painter spray 01/15/22 documented as of this encounter
--- OUTSIDE RECORDS SUMMARY | 2023-09-11 07:28 | XMS_ITS | Encounter Summary ---
Author Organization [place] Address [address] [facility] [place] [address] Care Team Providers Care Personnel Placement Specialist Name Role Phone Tre Ba MD Primary Care Provide r Reason for Visit * Reason Onset Date Comments Care 07/29/2023 Encounter Details Date Type Department Care Team (Late st Contact Info) Description 07/29/2023 Telephone [facility] [place] [address] [facility] [address] [place] [address] Carrie Smith, RN Care (/) [...] Smith RN - 07/29/2023 12:07 PM CDT [facility] called to discuss coordinating care between [facility] clinic and [facility]. Plan for [place] to do once weekly NSTs in the beginning of the week starting at 32 weeks and [facility] will do BPPs toward the end of the week starting at 32 weeks. [facility]. Pt will need to schedule more weekly BPPs after 08/21/23. Carrie Smith, RN on 07/29/2023 at 12:11 PM documented in this encounter Plan of Treatment Upcoming Encounters Date Type Department Care Team (Late st Contact Info) Description 09/15/2023 1:30 PM CDT Appointment [facility] Maternal Medicine [place] [address] [place] [phone] Mitch Jernigan MD [address] [place] [address] 09/15/2023 2:00 PM CDT Office Visit [facility] Medicine [place] [address] [place] [phone] Mitch Jernigan MD [address] [place] [address] 09/17/2023 11:00 AM CDT Appointment [facility] Heart Care [address] [place] [address] Cristiane Patel MD [address] [place] [address] 09/22/2023 11:45 AM CDT Appointment [facility]aternal Medicine [place] [address] [place] [phone] Rachel Reyna MD [address] [place], [place] [address] 09/22/2023 12:15 PM CDT Office Visit [facility] Maternal Medicine [place] [address] [place] [phone] Rachel Reyna MD [address] [place] [address] 09/29/2023 11:45 AM CDT Appointment [facility] Maternal Medicine [facility] [address] [place] [address] Luz Elena Betts MD [address] [place] [address] 09/29/2023 12:15 PM CDT Office Visit [facility]aternal Medicine [place] [address] [place] [phone] Luz Elena Betts MD [address] [place] [address] 10/06/2023 11:45 AM CDT Appointment [facility] Maternal Medicine [facility] [address] [place] [phone] Luz Elena Betts MD [address] [place] [address] 10/06/2023 12:15 PM CDT Office Visit [facility] Medicine [facility] [address] [place] [phone] Luz Elena Betts MD [address] [place] [address] documented as of this encounter Visit Diagnoses Not on filedocumented in this encounter Care Teams Personnel Placement Specialist Relationship Specialty Start Date End Date Tre Ba MD [address] [facility] [address] [place] [address] PCP - General nuclear powerplant mechanic 01/15/22 documented as of this encounter
--- OUTSIDE RECORDS SUMMARY | 2023-09-11 07:28 | XMS_ITS | Encounter Summary ---
Author Organization [place] Address [address] [facility] [place] [address] Care Team Providers Care Manager Federal Name Role Phone Tre Ba MD Primary [...] [facility] Maternal Medicine [facility] [place] [address] [facility] [address] [place] [address] Mitch Jernigan MD [address] [place], [place] [address] 09/15/2023 2:00 PM CDT Office Visit [facility] [place] [address] [facility] [address] [place] [phone] Mitch Jernigan MD [address] [place], [place] [address] 09/17/2023 11:00 AM CDT Appointment [facility] Heart Care [address] [place] [phone] Cristiane Patel MD [address] [place] [address] 09/22/2023 11:[address] [facility] Maternal Medicine [facility] [address] [place] [phone] Rachel Reyna MD [address] [place] [address] 09/22/2023 12:15 PM CDT Office Visit [facility] Maternal Medicine [place] [address] [place] [phone] Rachel Reyna MD [address] [place] [address] 09/29/2023 11:[address] [facility] Maternal Medicine [place] [address] [place] [phone] Luz Elena Betts MD [address] [place] [address] 09/29/2023 12:15 PM CDT Office Visit [facility] [place] [address] [place] [phone] Luz Elena Betts MD [address] [place] [address] 10/06/2023 11:[address] [facility] Maternal Medicine [place] [address] [place] [phone] Luz Elena Betts MD [address] [place], [place] [address] 10/06/2023 12:15 PM CDT Office Visit [facility] Maternal Medicine [facility] [address] [place] [phone] Luz Elena Betts MD [address] [place], [place] [address] documented as of this encounter Visit Diagnoses Not on filedocumented in this encounter Care Teams Manager Federal Relationship Specialty Start Date End Date Tre Ba MD [facility] [facility] [address] [place] [address] PCP - General certified midwife 01/15/22 documented as of this encounter
--- OUTSIDE RECORDS SUMMARY | 2023-09-11 07:28 | XMS_ITS | Encounter Summary ---
Author Organization [place] Address [address] [facility] [place] [address] Care Team Providers Care Public Health Assistant Name Role Phone Tre Ba MD Primary Care Provide r Reason for Referral * Diagnostic Imaging Ultrasound (Routine) - Pending Review Specialty Diagnoses / Procedures Referred By Temo taylor Referred To Contact Radiology. Diagnoses Diabetes mellitus, type 2 (H) Polyhydramnios affecting Procedures [facility] Cristiane Rubin MD [address] [place] [address] Referral ID Status Reason Start Date Expiration Date V isits Requested Visits Authorized [id number] Pending Review 07/24/2023 07/23/2024 1 1 Reason for Visit * Diagnostic Imaging Ultrasound (Routine) - Pending Review Specialty Diagnoses / Procedures Referred By Temo taylor Referred To Contact Radiology. Diagnoses Diabetes mellitus, type 2 (H) Polyhydramnios affecting Procedures [facility] Cristiane Rubin MD [address] [place] [address] Referral ID Status Reason Start Date Expiration Date V isits Requested Visits Authorized [id number] Pending Review 07/24/2023 07/23/2024 1 1 Encounter Details Date Type Department Care Team (Latest Contact Info) Description 07/30/2023 3:25 PM CDT - 07/30/2023 11:59 PM CDT Hospital Encounter [facility] [address] [phone] Bassem Pathak MD [address] [place], [place] [address] Polyhydramnios affecting Discharge Disposition: Home or Self [...] Info) Description 09/15/2023 1:30 PM CDT Appointment [facility] Medicine [facility] [address] [facility] [address] [place] [phone] Mitch Jernigan MD [address] [place], [place] [address] 09/15/2023 2:00 PM CDT Office Visit [facility] Medicine [facility] [address] [facility] [address] [place] [phone] Mitch Jernigan MD [address] [place], [place] [address] 09/17/2023 11:00 AM CDT Appointment [facility] Heart Care [address] [place] [address] Cristiane Patel MD [address] [place] [address] 09/22/2023 11:45 AM CDT Appointment [facility] Maternal Medicine [place] [address] [place] [phone] Rachel Reyna MD [address] [place] [address] 09/22/2023 12:15 PM CDT Office Visit [facility] [place] [address] [place] [phone] Rachel Reyna MD [address] [place] [address] 09/29/2023 11:45 AM CDT Appointment [facility] [place] [address] [place] [phone] Luz Elena Betts MD [address] [place] [address] 09/29/2023 12:15 PM CDT Office Visit [facility] Medicine [place] [address] [place] [phone] Luz Elena Betts MD [address] [place] [address] 10/06/2023 11:45 AM CDT Appointment [facility] Medicine [place] [address] [place] [phone] Luz Elena Betts MD [address] [place], [place] [address] 10/06/2023 12:15 PM CDT Office Visit [facility] Maternal Medicine [facility] [address] [place] [address] Luz Elena eBtts MD [address] [place], [place] [phone] documented as of this encounter Procedures Procedure Name Priority Date/Time Associated Diagnosis Comments [facility] BPP SINGLE Routine 07/30/2023 3:46 PM CDT Polyhydramnios affecting documented in this encounter Results * [facility] BPP Single (07/30/2023 3:46 PM CDT) [...] Pat. Name: SHEBA WILDER ? Study Date: ??07/30/2023 3:27pm Pat. NO: ??[id number] ?Referring ??MD: HOMAR MEDRANO Site: ??[facility] ? Rn Interventional: Lashonda Barlow RDMS : ??1985 ?Age: ?? [...] with MFM and once with PCP in [place]. Recommend delivery for GDM A2 and pregestational: ? Well controlled: [id number] ? Poorly controlled: [id number] ? Failed in-hospital attempt at control: [id number] Thank you for the opportunity to participate in the care of this patient. If you have questions regarding today's evaluation or if we can be of further service, please contact the Maternal- Medicine Center. anomalies may be present but not detected Procedure Note Bassem Pathak MD - 07/30/2023 BPP ----- Pat. Name: SHEBA WILDER Study Date: 07/30/2023 3:27pm Pat. NO: [id number] Referring MD: HOMAR MEDRANO Site: [facility] Rn Interventional: Lashonda Barlow RDMS : 1985 Age: 37 [...] here with MFM and once withPCP in [place]. Recommend delivery for GDM A2 and pregestational: ? Well controlled: [id number] ? Poorly controlled: [id number]-88h2n ? Failed in-hospital attempt at control: [id number]-[id number] Thank you for the opportunity to participate [...] fluid volume appears normal. Cristiane Patel MD [facility] US ORDERABLE S documented in this encounter Visit Diagnoses Diagnosis Polyhydramnios affecting documented in this encounter Care Teams Public Health Assistant Relationship Specialty Start Date End Date Tre Ba MD [address] [address] PCP - General appointment clerk 01/15/22 documented as of this encounter
--- OUTSIDE RECORDS SUMMARY | 2023-09-11 07:28 | XMS_ITS | Encounter Summary ---
Author Organization [place] Address [address] [place] [address] Care Team Providers Care Thiokol Operator Name Role Phone Tre Ba MD Primary Care Provide r Encounter Details Date Type Department Care Team (Late st Contact Info) Description 07/24/2023 2:40 PM CDT Lab [facility] [address] [place] [address] Cristiane Patel MD [address] [place] [address] Multigravida of advanced maternal age [...] Appointment [facility] M[facility] Medicine [facility] [place] [address] [facility] [address] [place] [address] Mitch Jernigan MD [address] [place], [place] [address] 09/15/2023 2:00 PM CDT Office [facility] Medicine [facility] [place] [address] [place] [phone] Mitch Jernigan MD [address] [place] [address] 09/17/2023 11:00 AM CDT Appointment [facility] Heart Care [address] [place] [address] Cristiane Patel MD [address] [place] [address] 09/22/2023 11:[address] [facility] Maternal Medicine [facility] [place] [address] [place] [phone] Rachel Reyna MD [address] [place] [address] 09/22/2023 12:15 PM CDT Office Visit [facility] [place] [address] [place] [phone] Rachel Reyna MD [address] [place] [address] 09/29/2023 11:[address] [facility] M[facility] Medicine [facility] [place] [address] [place] [phone] Luz Elena Betts MD [address] [place] [address] 09/29/2023 12:15 PM CDT Office Visit [facility] Maternal Medicine Center [place] [address] [place] [phone] Luz Elena Betts MD [address] [place], [place] [address] 10/06/2023 11:45 AM CDT Appointment [facility] [address] [facility] [address] [place] [phone] Luz Elena Betts MD [address] [place], [place] [address] 10/06/2023 12:15 PM CDT Office Visit [facility] [address] [facility] [address] [place] [phone] Luz Elena Betts MD [address] [place], [place] [id number] documented as of this encounter Procedures Procedure Name Priority Date/Time Associated Diagnosis Comments frents NON-INVASIVE SCREENING PREQUEL Routine 07/24/2023 2:49 PM CDT Multigravida of advanced maternal age in third trimester documented in this encounter Results * [facility] [facility] Non-Invasive Screening???Prequel (07/24/2023 2:49 PM CDT) See Scanned Result frents NON-INVASIVE SCREENING PREQUEL-Scann ed 08/02/2023 7:16 PM CDT [employer] Blood STRUCTURE OF RIGHT UPPER LIMB / Unknown Venipuncture / Unknown 07/24/2023 2:49 PM CDT 07/24/2023 2:49 PM CDT Laura Abdi [facility] LAB - BLOOD ORDERABL ES [employer] [address] [place], [place] [address] [phone] documented in this encounter Visit Diagnoses Diagnosis Multigravida of advanced maternal age in third trimester documented in this encounter Care Teams Thiokol Operator Relationship Specialty Start Date End Date Tre Ba MD [address] [address] PCP - General text transcriber 01/15/22 documented as of this encounter
--- OUTSIDE RECORDS SUMMARY | 2023-09-11 07:28 | XMS_ITS | Encounter Summary ---
Author Organization [place] Address [address] [facility] [place] [address] Care Team Providers Care Silk Crepe Machine Operator Name Role Phone Tre Ba [...] [facility] Maternal Medicine Center [place] [address] [facility] [address] [place] [address] Mitch Jernigan MD [address] [place], [place] [address] 09/15/2023 2:00 PM CDT Office Visit [facility] M[facility] Medicine Center [place] [address] [facility] [address] [place] [phone] Mitch Jernigan MD [address] [place], [place] [address] 09/17/2023 11:00 AM CDT Appointment [facility] Heart Care [address] [place] [phone] Cristiane Patel MD [address] [place] [address] 09/22/2023 11:45 AM CDT Appointment [facility] Maternal Medicine [facility] [address] [place] [phone] Rachel Reyna MD [address] [place] [address] 09/22/2023 12:15 PM CDT Office Visit [facility] Maternal Medicine [place] [address] [place] [phone] Rachel Reyna MD [address] [place] [address] 09/29/2023 11:45 AM CDT Appointment [facility] Maternal Medicine [place] [address] [place] [phone] Luz Elena Betts MD [address] [place] [address] 09/29/2023 12:15 PM CDT Office Visit [facility] Medicine Center [place] [address] [place] [phone] Luz Elena Betts MD [address] [place] [address] 10/06/2023 11:45 AM CDT Appointment [facility] Maternal Medicine [place] [address] [place] [phone] Luz Elena Betts MD [address] [place], [place] [address] 10/06/2023 12:15 PM CDT Office Visit [facility] Maternal Medicine [facility] [address] [place] [phone] Luz Elena Betts MD [address] [place], [place] [address] documented as of this encounter Visit Diagnoses Not on filedocumented in this encounter Care Teams Silk Crepe Machine Operator Relationship Specialty Start Date End Date Tre Ba MD [facility] [facility] [address] [place] [address] PCP - General medical practitioners 01/15/22 documented as of this encounter
--- OUTSIDE RECORDS SUMMARY | 2023-09-11 07:28 | XMS_ITS | Encounter Summary ---
Author Organization [place] Address [address] [facility] [place] [address] Care Team Providers Care Infantry Operations Specialist Name Role Phone Tre Ba MD Primary Care Provide r Bassem Pathak MD Unavailable [phone] Reason for Visit * Reason Comments Ultrasound RL2/BPP- DM2 poor co ntrol Encounter Details Date Type Department Care Team (Late st Contact Info) Description 08/21/2023 12:15 PM CDT Office Visit [facility] Maternal Medicine Center [place] [address] [facility] [address] [place] [address] Cristiane Patel MD [address] [place] [address] Mitch Jernigan MD [address] [place] [address] Pre-existing type 2 diabetes mellitus [...] of today's US at the [facility] Center - Mai. Mitch Jernigan MD Maternal- Medicine documented in this encounter Nursing Notes * Larua Vila RN - 08/21/2023 12:15 PM CDT Pt at [facility] for ultrasound- see detailed report under imaging tab. Pt reports positive movement, denies other concerns at this time. Has been able to chart picker insulin- reports fasting value of 93,after meal 115. SBAR given to MD. documented in this encounter Plan of Treatment Upcoming Encounters Date Type Department Care Team (Late st Contact Info) Description 09/15/2023 1:30 PM CDT Appointment [facility] Maternal Medicine [place] [address] [place] [phone] Mitch Jernigan MD [address] [place] [address] 09/15/2023 2:00 PM CDT Office Visit [facility] Medicine [facility] [address] [place] [phone] Mitch Jernigan MD [address] [place], [place] [address] 09/17/2023 11:00 AM CDT Appointment [facility] [address] [place] [phone] Cristiane Patel MD [address] [place], [place] [address] 09/22/2023 11:45 AM CDT Appointment [facility] Maternal Medicine [place] [address] [place] [address] Rachel Reyna MD [address] [place] [address] 09/22/2023 12:15 PM CDT Office Visit [facility] Maternal Medicine [place] [address] [place] [phone] Rachel Reyna MD [address] [place] [address] 09/29/2023 11:45 AM CDT Appointment [facility] Maternal Medicine [place] [address] [place] [phone] Luz Elena Betts MD [address] [place] [address] 09/29/2023 12:15 PM CDT Office Visit [facility] Maternal Medicine [place] [address] [place] [address] Luz Elena Betts MD [address] [place] [address] 10/06/2023 11:45 AM CDT Appointment [facility] Maternal Medicine [place] [address] [place] [phone] Luz Elena Betts MD [address] [place] [address] 10/06/2023 12:15 PM CDT Office Visit [facility] Maternal Medicine [place] [address] [place] [phone] Luz Elena Betts MD [address] [place] [address] documented as of this encounter Visit Diagnoses Diagnosis Pre-existing type 2 diabetes mellitus during in third trimester- Primary Polyhydramnios affecting documented in this encounter Care Teams Infantry Operations Specialist Relationship Specialty Start Date End Date Tre Ba MD [facility] [facility] [address] [place] [address] PCP - General division roadmaster 01/15/22 Bassem Pathak MD [address] [place], [place] [address] Assigned OBGYN Provider 08/16/23 documented as of this encounter
--- OUTSIDE RECORDS SUMMARY | 2023-09-11 07:28 | XMS_ITS | Encounter Summary ---
Author Organization [place] Address [facility] [place] [address] Care Team Providers Care Tuck Pointer Name Role Phone Tre Ba MD Primary Care Provide r Bassem Pathak MD Unavailable [phone] Reason for Referral * Diagnostic Imaging Ultrasound (Routine) - Pending Review Specialty Diagnoses / Procedures Referred By Temo taylor Referred To Contact Radiology. Diagnoses Diabetes mellitus, type 2 (H) Polyhydramnios affecting Procedures [facility] US Comprehensive Single F/U Cristiane Patel MD [address] [place] [address] Referral ID Status Reason Start Date Expiration Date V isits Requested Visits Authorized [id number] Pending Review 07/24/2023 07/23/2024 1 1 Reason for Visit * Diagnostic Imaging Ultrasound (Routine) - Pending Review Specialty Diagnoses / Procedures Referred By Temo taylor Referred To Contact Radiology. Diagnoses Diabetes mellitus, type 2 (H) Polyhydramnios affecting Procedures [facility] US Comprehensive Single F/U Cristiane Patel MD [address] [place] [address] Referral ID Status Reason Start Date Expiration Date V isits Requested Visits Authorized [id number] Pending Review 07/24/2023 07/23/2024 1 1 Encounter Details Date Type Department Care Team (Latest Contact Info) Description 08/21/2023 11:45 AM CDT - 08/21/2023 11:59 PM CDT Hospital Encounter [facility] Maternal Medicine [facility] [place] [address] [facility] [address] [place] [phone] Cristiane Patel MD [address] [place] [address] Mitch Jernigan MD [address] [place] [address] Polyhydramnios affecting Discharge Disposition: Home [...] Info) Description 09/15/2023 1:30 PM CDT Appointment [facility] Maternal Medicine [place] [address] [facility] [address] [place] [phone] Mitch Jernigan MD [address] [place], [place] [address] 09/15/2023 2:00 PM CDT Office Visit [facility] Maternal Medicine Center [place] [address] [place] [address] Mitch Jernigan MD [address] [place] [address] 09/17/2023 11:00 AM CDT Appointment [facility] [address] [place] [address] Cristiane Patel MD [address] [place] [address] 09/22/2023 11:45 AM CDT Appointment [facility] Maternal Medicine [place] [address] [place] [phone] Rachel Ryena MD [address] [place] [address] 09/22/2023 12:15 PM CDT Office Visit [facility] Maternal Medicine [place] [address] [place] [phone] Rachel Reyna MD [address] [place] [address] 09/29/2023 11:45 AM CDT Appointment [facility] Maternal Medicine [place] [address] [place] [phone] Luz Elena Betts MD [address] [place] [address] 09/29/2023 12:15 PM CDT Office Visit [facility] Maternal Medicine Center [place] [address] [place] [address] Luz Elena Betts MD [address] [place] [address] 10/06/2023 11:45 AM CDT Appointment [facility] Maternal Medicine [facility] [address] [place] [phone] Luz Elena Betts MD [address] [place], [place] [address] 10/06/2023 12:15 PM CDT Office Visit [facility] Maternal Medicine [facility] [address] [place] [address] Luz Elena Betts MD [address] [place], [place] [address] documented as of this encounter Procedures Procedure Name Priority Date/Time Associated Diagnosis Comments [facility] US COMPREHENSIVE SINGLE F/U Routine 08/21/2023 12:39 PM CDT Polyhydramnios affecting documented in this encounter Results * [facility] US Comprehensive Single F/U (08/21/2023 12:39 [...] ? Study Date: ??08/21/2023 11:58am Pat. NO: ??[id number] ?Referring ??MD: HOMAR MEDRANO Site: ? Superintendent Circus: Yamila Dutton RDMS : ??1985 ?Age: ?? 37 ----- INDICATION ----- Type 2 diabetes - on insulin Mild polyhydramnios. METHOD ----- Transabdominal ultrasound examination. View: Sufficient ----- Gonzalez . Number of fetuses: 1 DATING ----- ? Date ?Details ?Gest. age ?BROOEK LMP ?01/03/2023 ?34 w + 6 d [...] lb 4 ?oz EFW by ? Hadlock ([id number]) Head / Face / Neck Biometry: Junior Assistant Manager ?4.4 ? mm ANATOMY ----- The [...] Heart / Thorax ?RVOT view. LVOT view. 9-pgeffl-rgtsfpl view. Spine ?Cervical spine. sex: male. MATERNAL STRUCTURES ----- Cervix ?Suboptimal Right Ovary ?Not examined Left Ovary ?Not examined RECOMMENDATION ----- We discussed the findings on today's ultrasound with the patient. The patient has the following ultrasounds already scheduled: 1) BPP once weekly at your clinic. 2) BPP once weekly at [facility]. 3) echo on 08/28/23 with Pediatric Cardiology. 4) growth assessment at [facility] in 4 weeks. Given the polyhydramnios [...] WILDER Study Date: 08/21/2023 11:58am Pat. NO: [id number] Referring MD: HOMAR MEDRANO Site: Superintendent Circus: Yamila Dutton RDMS : 1985 Age: 37 [...] EFW (lb,oz) 6 lb 4oz EFW by Hadlock([id number]) Head / Face / Neck Biometry: Junior Assistant Manager 4.4mm ANATOMY ----- The following structures appear normal: Head / Neck Cranium. Head size. Head shape.Lateral ventricles. Midline falx. Cavum septi pellucidi. Cerebellum.Cisterna magna. Thalami. Face Profile. Heart / Thorax 4-chamber view. Diaphragm. Abdomen Stomach. Kidneys. Bladder. Spine Thoracic spine. Lumbar spine.Sacral spine. The following structures were documented previously: Face Lips. Nose. Heart / Thorax RVOT view. LVOT view. 3-msaspj-ngjwocijbcd. Spine Cervical spine. sex: male. MATERNAL STRUCTURES ----- Cervix Suboptimal Right Ovary Not examined Left Ovary Not examined RECOMMENDATION ----- We discussed the findings on today's ultrasound with the patient. The patient has the following ultrasounds already scheduled: 1) BPP once weekly at your clinic. 2) BPP once weekly at [facility]. 3) echo on 08/28/23 with Pediatric Cardiology. 4) growth assessment at [facility] in 4 weeks. Given the polyhydramnios [...] BPP is reassuring. Cristiane Patel MD IMG [facility] US ORDERABLE S documented in this encounter Visit Diagnoses Diagnosis Polyhydramnios affecting documented in this encounter Care Teams Tuck Pointer Relationship Specialty Start Date End Date Tre Ba MD [address] [place] [id number] PCP - General quality control supervisor 01/15/22 Bassem Pathak MD [address] [facility] [address] [place] [address] Assigned OBGYN Provider 08/16/23 documented as of this encounter
--- OUTSIDE RECORDS SUMMARY | 2023-09-11 07:28 | XMS_ITS | Encounter Summary ---
Author Organization [place] Address [address] [place] [address]. [place] [address] Care Team Providers Care Jig And Fixture Maker Name Role Phone Tre Ba MD Primary Care Provide r Encounter Details Date Type Department Care Team (Late Contact Info) Description 07/03/2023 Medical Correspondence [facility] [address] [place] [address] Scan, Non-Provider Social History Tobacco [...] Upcoming Encounters Date Type Department Care Team ([facility] Contact Info) Description 09/15/2023 1:30 PM CDT Appointment [facility] Maternal Medicine [facility] [address] [facility] [address] [place] [address] Mitch Jernigan MD [address] [place] [address] 09/15/2023 2:00 PM CDT Office Visit [facility] Maternal Medicine [facility] [address] [facility] [address] [facility] [address] [place] [phone] Mitch Jernigan MD [address] [place] [address] 09/17/2023 11:00 AM CDT Appointment [facility] [address] [place] [address] Cristiane Patel MD [address] [place] [address] 09/22/2023 11:45 AM CDT Appointment [facility] Maternal Medicine [facility] [address] [place] [phone] Rachel Reyna MD [address] [place] [address] 09/22/2023 12:15 PM CDT Office Visit [facility] Maternal Medicine [facility] [address] [place] [phone] Rachel Reyna MD [address] [place] [address] 09/29/2023 11:45 AM CDT Appointment [facility] Maternal Medicine [facility] [address] [place] [phone] Luz Elena Betts MD [address] [place] [address] 09/29/2023 12:15 PM CDT Office Visit [facility] Maternal Medicine [facility] [address] [place] [phone] Luz Elena Betts MD [address] [place] [address] 10/06/2023 11:45 AM CDT Appointment [facility] M[facility] Medicine [facility] [place] [address] [place] [address] Luz Elena Betts MD [address] [place], [place] [address] 10/06/2023 12:15 PM CDT Office Visit [facility] Maternal Medicine [facility] [address] [place] [phone] Luz Elena Betts MD [address] [place], [place] [address] documented as of this encounter Visit Diagnoses Not on filedocumented in this encounter Care Teams Jig And Fixture Maker Relationship Specialty Start Date End Date Tre Ba MD [facility] [address] [facility] [address] [place] [address] PCP - General chief technologist 01/15/22 documented as of this encounter
--- OUTSIDE RECORDS SUMMARY | 2023-09-11 07:29 | XMS_ITS | Data Portability ---
Author Organization RENO Funez SMOG TECHNICIAN, [id number] Address [address] [facility] [address] [place] [address] Assessment Encounter Date Assessment Date Assessment LastModified [...] quantitativ e, serum or plasma 2022 023 [facility], [address] [place] [address], [address], [place], [address], 09:46:18 culture, urine [address], [address], [place], [address], 4 07:02:01 Referral None recorded. Procedures None recorded. Surgeries None recorded. Imaging US, obstetric, transvagina l 2022 023 [email or web address] [id number] [facility], [address] [place] [address], [address], [place], [address], 3 13:56:56 US, obstetric, transvagina l 2022 023 [email or web address] [id number] [facility], [address] [place] [address], [address], [place], [address], 3 11:33:13 US, obstetric, transvagina l 2022 023 [email or web address] [id number] [facility], [address] [place] [address], [address], [place], [address], 3 15:37:35 US, obstetric, transvagina l 2023 024 [email or web address] [id number] [facility], [address] [place] [address], [address] [place] [address], [address], 4 14:40:10 Medication Orders None recorded. Patient TargetsNo targets recorded. Patient Instructions Encounter Date Encounter Id Patient Instructions Last Modified By Organization Details Last Modified Time 07/09/2022 [id number] venous blood draw* Not available 07/09/2022 16:10:57 03/03/2023 [id number] - New OB packet reviewed. Handouts provided. - She is considering transferring care to [place] as she lives an hour away from [...] 92 mIU/m L <5 high Not Available [employer] [address] [facility] [address], [place], [address], 07/10/2022 09:46:17 03/03/19 24 03/03/2023 URINE CULTU RE urine culture SEE RESULT S BELOW Not Available [employer] [address] [facility] [address], [place], [address], 03/05/2023 07:02:01 06/25/19 23 06/24/2022 US, obste tric, trans vagin al No observ ation record ed. [email or web address] [address], [place], [address], 06/24/2022 14:04:18 07/10/19 23 07/09/2022 US, obste tric, trans vagin al No observ ation record ed. [email or web address] [address], [place], [address], 07/09/2022 15:43:58 03/03/19 24 03/03/2023 US, obste tric, trans vagin al No observ ation record ed. [email or web address] [address], [place], [address], 03/03/2023 14:42:22 Result Notes None recorded. Problems No Known Problems Procedures Surgical History Date Name Laterality Status Provider Name and Address Organization Details Recorded Time reversal of female sterilization completed Ivis Gutierrez null, [place] - [facility] TECHN[facility] 10/14/2021 12:58:07 Tubal Ligation completed Ivis Gutierrez null, [place] [facility] 10/14/2021 12:58:13 TUBOTUBAL ANASTOMOSIS (SURG) completed Ivette Mitchell(TERM) null, [place] - [facility] 11/11/2021 11:48:16 Imaging Results Imaging Date Name Status LastModified by Organization Details LastModified Time 06/24/2022 US, obstetric, transvaginal completed [facility], [place], [address], 06/24/2022 14:04:18 07/09/2022 US, obstetric, transvaginal completed [email or web address] [address], [place], [address], 07/09/2022 15:43:58 03/03/2023 US, obstetric, transvaginal completed [email or web address] [address], [place], [address], 03/03/2023 14:42:22 Procedure Notes None recorded. Medical [...] Updated DateTime 06/24/2022 154.94 cm 32.3 kg/m2 87205.01 g 124 mm[Hg] 68 mm[Hg] Tammie Funez SMOG TECHNICIAN 12:10:56 Date Recorded Body height Body mass index (BMI) Body weight Systolic blood pressure Diastolic blood pressure Provider Name and Address Organization Details Last Updated DateTime 07/09/2022 154.94 cm 32.9 kg/m2 96789.07 g 114 mm[Hg] 66 mm[Hg] Dick Lacy [place] - [facility]G TECHNICIAN 3 15:44:05 Date Recorded Body height Body mass index (BMI) Body weight Systolic blood pressure Diastolic blood pressure Provider Name and Address Organization Details Last Updated DateTime 03/03/2023 154.94 cm 33.2 kg/m2 19167.82 g 126 mm[Hg] 70 mm[Hg] Katina Branham [facility] SMOG TECHNICIAN 4 14:31:00 Social History Question Answer Notes LastModified by Organizat ion Details LastModified Time Tobacco Smoking Status Never Smoker Ivis RENO Barber - [facility]MOG TECHNICIAN 06/07/2020 17:13:51 Do You Have An [...] trivalent, preservative 12/08/2012 completed RENO Reddy [facility] SMOG TECHNICIAN 10/14/2021 12:57:47 MMR 01/13/2013 completed Ivis faulkner [place] [facility] SMOG TECHNICIAN 10/14/2021 12:57:47 Tdap 12/08/2012 completed RENO Reddy [facility] SMOG TECHNICIAN 10/14/2021 12:57:47 Influenza, split virus, trivalent, PF 04/13/2012 completed Ivis RENO Barber - SMOG TECHNICIAN 10/14/2021 12:57:47 Past Encounters Encounter ID Performer Location Encounter Start Date Encounter Closed Date Diagnosis/Indication Diagnosis SNOMED-CT Code [id number] Tre Ba MD [id number] [place] [phone] 06/07/2020 16:46:29 06/07/2020 17:50:47 Reversal of sterilization [id number] MD RADHA Hanna_CAITY [address],[facility] [address] [place] [phone] 08/05/2021 19:21:07 08/08/2021 12:06:56 Reversal of sterilization [id number] Tre Ba MD [id number] [address] [place],[address] [place] [address] 10/14/2021 12:38:21 10/14/2021 13:38:29 Postoperative visit [id number] Tre Ba MD [id number]_QUYW [facility] [place],[facility] [address] [place] [address] 01/09/2022 11:28:39 01/09/2022 11:47:14 Finding of viability of [id number] EMMA LAGUNAS_CAITY [address] [place],[address] [place] [phone] 01/09/2022 11:29:08 01/09/2022 18:09:47 Finding of viability of 772040080 Uncertain viability of [id number] EMMA LAGUNAS_METArt [address] [place],[address] [place] [address] 01/13/2022 12:07:11 01/14/2022 09:21:49 [id number] DO FRANCES Oropeza003_METR [address] [place] [phone] 06/24/2022 11:40:01 06/24/2022 12:04:55 Finding of viability of [id number] JAKAI STRAUSSEMMA Elaine LQ131_OMLY [address] [address] 06/24/2022 11:43:10 06/24/2022 13:48:42 Gestation period, 7 weeks 46885654 Multigravi da of advanced maternal age 855772114 Past pregn barney history of miscarriage 180116989 [id number] JERMAINE QUIÑONEZ RU449_TQCY [address] [address] 07/09/2022 15:05:38 07/10/2022 11:33:13 Missed miscarriage 98167143 [id number] Adri Niño DO SP195_RRNG [address] [place],[address] [place] [id number] 07/09/2022 14:59:44 07/09/2022 15:27:48 Threatened miscarriage in first trimester [id number] [id number] EMMA LAGUNAS LK925_MCNK [address] [place] [id number] 03/03/2023 14:15:13 03/03/2023 15:28:10 test positive [id number] Gestation period, 8 weeks 75491518 Past pregn barney history of gestational diabetes mellitus 247193501 Past pregn barney history of delivery of macrosomal infant [id number] Multigravi da of advanced maternal age 411383878 Reversal o f sterilization 026604401 [id number] Salvador Costa MD GU617_MQIC [address] [place] [id number] 03/03/2023 13:46:50 03/03/2023 14:13:48 Finding of viability of 529491130 Health Concerns Section Related Observation LastModified by Organization Detai ls LastModified Time None Recorded Concern Status LastModified by Organization Details LastModified Time None Recorded Advance Directives Directive N: Payers Encounter Date Sequence Insurance Name Policy Number Policy [place] Covered Member ID [place] Member ID Guarantor Name 06/24/2022 1 [employer] - DOS PRIOR TO 2022 (MEDICAID REPLACEMENT - HMO) [id number] 1 Sheba Meño [id number] Sheba Meño 07/09/2022 1 [employer] - DOS PRIOR TO 2022 (MEDICAID REPLACEMENT - HMO) [id number] 1 Sheba Meño [id number] Sheba Meño 07/09/2022 1 [employer] - DOS PRIOR TO 2022 (MEDICAID REPLACEMENT - HMO) [id number] 1 Sheba Meño [id number] Sheba Meño 03/03/2023 SLIDING FEE SCHEDULE - [...] 8 weeks 1 day. JAK KAUFMAN, EMMA [id number] [facility],[address], [place], [address], [facility] - [facility] SMOG TECHNICIAN 06/24/2022 13:48:00 07/09/2022 text/html HPI Notes: The patient presents today as follow up from [facility]. She is a . She had a [...] small clots and having cramping. SILVINO TOSCANO, [facility] [address] [facility],[address], [place], [address], [place] - [employer] SMOG TECHNICIAN 07/09/2022 16:17:52 03/03/2023 text/html HPI Notes: [...] The patient would like to deliver at [facility]. Genetic testing was discussed today and [...] [ ] problems/Antepartu m testing: EMMA LAGUNAS [id number] [facility],[address], [place], [address], [place] - [facility] SMOG TECHNICIAN 03/03/2023 15:27:22 OBGyn Episode No OBEpisode recorded.
== END 2023-09-11 07:26 | disposition home or self-care (01) ==
LOC: US 07:25
PROVIDERS: Visit Provider Obstetrics & Gynecology
DX: O24.419 Gestational diabetes mellitus in pregnancy, unspecified control (principal)
CPT/HCPCS: 76819

== ENCOUNTER 2023-09-19 16:18 | Inpatient (IN) | payer MEDICAID, SELFPAY ==
[2023-09-19] VITALS (97 sets, daily range): BP systolic 130–177; BP diastolic 69–97; PULSE 84–110; RESP 16–20; TEMP 36.6–36.7; O2SAT 93–100; BMI 38.7
--- OUTSIDE RECORDS SUMMARY | 2023-09-19 16:20 | XMS_ITS | Clinical Summary ---
Author Organization [facility] Address [address] [place] [address]. [place] [address] Care Team Providers Care Psychologist Research Assistant Name Role Phone Tre Ba MD Primary Care Provide r Bassem Pathak MD Unavailable [phone] Allergies No known active allergies Medications Medication [...] Encounters Date Type Department Care Team Description 09/17/2023 11:00 AM CDT Hospital Encounter [facility] [address] [place] [phone] Cristiane Patel MD 09/16/2023 Telephone [facility] [address] [place] [address] [phone] Cheri Peters LPN 09/15/2023 2:00 PM CDT Office Visit [facility] [place] [address] [facility] [address] [place] [address] Mitch Jernigan MD Pre-existing type 2 diabetes mellitus during in third trimester (Primary Dx); Polyhydramnios affecting 09/15/2023 1:30 PM CDT - 09/15/2023 11:59 PM CDT Hospital Encounter [facility] [place] [address] [place] [phone] Mitch Jernigan MD Pre-existing type 2 diabetes mellitus during in third trimester Discharge Disposition: Home or Self Care 09/15/2023 Travel 09/08/2023 12:15 PM CDT Office Visit [facility] [place] [address] [place] [phone] Bassem Pathak MD Rauk, Phillip Neil, MD Pre-existing type 2 diabetes mellitus during in third trimester (Primary Dx) 09/08/2023 11:45 AM CDT - 09/08/2023 11:59 PM CDT Hospital Encounter [facility] Medicine [place] [address] [place] [phone] Bassem Pathak MD Rauk, Phillip Neil, MD Pre-existing type 2 diabetes mellitus during in third trimester Discharge Disposition: Home or Self Care 09/08/2023 Travel 09/02/2023 12:15 PM CDT Office Visit [facility] Medicine [place] [address] [place] [phone] Luz Elena Betts MD Pre-existing type 2 diabetes mellitus during in third trimester (Primary Dx) 09/02/2023 11:45 AM CDT - 09/02/2023 11:59 PM CDT Hospital Encounter [facility] Medicine [place] [address] [place] [phone] Luz Elena Betts MD Pre-existing type 2 diabetes mellitus during in third trimester Discharge Disposition: Home or Self Care 09/02/2023 Travel 08/26/2023 Telephone [facility] Heart [address] [phone] Fran CheriQUIN 08/25/2023 12:15 PM CDT Office Visit [facility] Medicine [place] [address] [place] [phone] Bassem Pathak MD Yamamura, Yasuko, MD Pre-existing type 2 diabetes mellitus during in third trimester (Primary Dx); Polyhydramnios in third trimester complication, single or unspecified fetus 08/25/2023 11:45 AM CDT - 08/25/2023 11:59 PM CDT Hospital Encounter [facility] Medicine [place] [address] [place] [phone] Bassem Pathak MD Yamamura, Yasuko, MD Pre-existing type 2 diabetes mellitus during in third trimester Discharge Disposition: Home or Self Care 08/25/2023 Travel 08/21/2023 12:15 PM CDT Office Visit [facility] Medicine [place] [address] [place] [phone] Cristiane Patel MD Rauk, Mitch Walker MD Pre-existing type 2 diabetes mellitus during in third trimester (Primary Dx); Polyhydramnios affecting 08/21/2023 11:45 AM CDT - 08/21/2023 11:59 PM CDT Hospital Encounter [facility] Medicine [place] [address] [place] [phone] Cristiane Patel MD Rauk, Phillip Neil, MD Polyhydramnios affecting Discharge Disposition: Home or Self Care 08/21/2023 Travel 08/14/2023 4:00 PM CDT Office Visit [facility] Medicine [place] [address] [place] [phone] Cristiane Patel MD Rauk, Phillip Neil, MD Pre-existing type 2 diabetes mellitus during in third trimester (Primary Dx); Polyhydramnios affecting 08/14/2023 3:30 PM CDT - 08/14/2023 11:59 PM CDT Hospital Encounter [facility]aternal Medicine [facility] [address] [facility] [address] [place] [phone] Cristiane Patel MD Rauk, Phillip Neil, MD Polyhydramnios affecting Discharge Disposition: Home or Self Care 08/14/2023 Travel 08/03/2023 Telephone [facility] [address] [phone] Laura Abdi, GC Results (Low Risk Expanded NIPT) 07/30/2023 4:00 PM CDT Office Visit [facility] [address] [phone] Bassem Pathak MD Pre-existing type 2 diabetes mellitus during in third trimester (Primary Dx) 07/30/2023 3:25 PM CDT - 07/30/2023 11:59 PM CDT Hospital Encounter [facility] [address] [phone] Bassem Pathak MD Polyhydramnios affecting Discharge Disposition: Home or Self Care 07/30/2023 Travel 07/29/2023 Telephone [facility] Medicine [facility] [address] [address] [facility] [address] [place] [phone] Carrie Smith, JD Care (/) 07/24/2023 2:40 PM CDT Lab [facility] [address] [place] [phone] Cristiane Patel MD Multigravida of advanced maternal age in third trimester 07/24/2023 2:00 PM CDT Office Visit [facility] Medicine [facility] [address] [address] [facility] [address] [place] [phone] Cristiane Patel MD with type 2 diabetes mellitus in third trimester (Primary Dx); Polyhydramnios affecting 07/24/2023 12:50 PM CDT - 07/24/2023 11:59 PM CDT Hospital Encounter [facility] Medicine [place] [address] [facility] [address] [place] [phone] Cristiane Patel MD related condition, antepartum Discharge Disposition: Home or Self Care 07/24/2023 12:45 PM CDT Office Visit [facility] Medicine [place] [address] [address] [place] [phone] Cristiane Patel MD Daykin, Emily C, CONCEPCION Multigravida of advanced maternal age in third trimester (Primary Dx); related condition, antepartum 07/24/2023 Medical Correspondence [facility] [address] [facility] [place] [phone] Scan, Non-Provider 07/24/2023 Travel 07/08/2023 PRE VISIT [facility] Medicine [place] [address] [address] [place] [phone] Melissa Aguiar RN Ultrasound (L2-AMA) 07/03/2023 Medical Correspondence [facility] [address] [place] [address] Scan, Non-Provider 07/03/2023 Transcribe Orders [facility] Medicine [place] [address] [address] [place] [phone] Homar Medrano, ELECTRO 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 DESIGNER 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 related condition, antepartum (Primary Dx) from Last [...] Comments Blood Pressure 112/59 01/20/2022 11:00 PM SUEDING MACHINE OPERATOR Pulse 80 01/20/2022 11:00 PM SUEDING MACHINE OPERATOR Temperature 37.1 ??C (98.7 ??F) 01/20/2022 10:[address] Respiratory Rate 16 01/20/2022 11:00 PM SUEDING MACHINE OPERATOR Oxygen Saturation 100% 01/20/2022 11:30 PM SUEDING MACHINE OPERATOR Inhaled Oxygen Concentration - - Weight 76.4 kg (168 lb 6.4 oz) 01/20/2022 4:42 P M SUEDING MACHINE OPERATOR Height 154.9 cm (5' 1) 01/20/2022 4:42 PM SUEDING MACHINE OPERATOR Body Mass Index 31.82 01/20/2022 4:42 PM SUEDING MACHINE OPERATOR Plan of Treatment Upcoming Encounters Date Type Department Care Team (Late st Contact Info) Description 09/22/2023 11:45 AM CDT Appointment [facility] [place] [address] [place] [phone] Rachel Reyna MD [address] [place] [address] 09/22/2023 12:15 PM CDT Office Visit [facility] Medicine [facility] [address] [place] [phone] Rachel Reyna MD [address] [place], [place] [phone] 09/29/2023 11:45 AM CDT Appointment [facility] Medicine [facility] [address] [place] [phone] Luz Elena Betts MD [address] [place], [place] [phone] Lina Wu MD [address] [place] [address] 09/29/2023 12:15 PM CDT Office Visit [facility] M[facility] Medicine [facility] [address] [place] [address] Luz Elena Betts MD [address] [place] [address] Lina Wu MD [address] [place] [address] 10/06/2023 11:45 AM CDT Appointment [facility] Medicine [facility] [address] [place] [phone] Luz Elena eBtts MD [address] [place] [address] 10/06/2023 12:15 PM CDT Office Visit [facility] Maternal Medicine [facility] [address] [place] [phone] Luz Elena Betts MD [address] [place] [address] Health Maintenance Due Date Last Done Comments [...] Procedure Name Priority Date/Time Associated Diagnosis Comments [facility] SINGLE F/U Routine 09/15/2023 2:12 PM CDT Pre-existing type 2 diabetes mellitus during in third trimester [facility] SINGLE Routine 09/08/2023 12:22 PM CDT Pre-existing type 2 diabetes mellitus during in third trimester [facility] SINGLE Routine 09/02/2023 12:22 PM CDT Pre-existing type 2 diabetes mellitus during in third trimester [facility] SINGLE Routine 08/25/2023 12:05 PM CDT Pre-existing type 2 diabetes mellitus during in third trimester [facility] SINGLE F/U Routine 08/21/2023 12:39 PM CDT Polyhydramnios affecting [facility] SINGLE Routine 08/14/2023 3:54 PM CDT Polyhydramnios affecting [facility] SINGLE Routine 07/30/2023 3:46 PM CDT Polyhydramnios affecting [facility] NON-INVASIVE SCREENING PREQUEL Routine 07/24/2023 2:49 PM CDT Multigravida of advanced maternal age in third trimester [facility] US COMPREHENSIVE SINGLE Routine 07/24/2023 2:13 PM CDT related condition, antepartum from Last 3 Months Results * [facility] Comprehensive Single F/U (09/15/2023 2:12 PM CDT) Only the most recent of2 resultswithin the time period is included. Anatomical Region Laterality Modality Ultrasound 09/15/2023 1:45 PM CDT Impressions 09/15/2023 2:29 PM CDT IMPRESSION ----- 1. Gonzalez at 36w 3d gestational age. 2. Growth parameters and estimated weight were consistent with LGA growth. 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 3. The amniotic fluid volume is subjectively high. 4. BPP is reassuring. Narrative 09/15/2023 2:29 PM CDT ?Comp Follow Up ----- Pat. Name: JACK EDWARDS ? Study Date: ??09/15/2023 1:45pm Pat. NO: ??[id number] ?Referring ??MD: HOMAR MEDRANO Site: ? Satellite Specialist: Micha Gage RDMS : ??1985 ?Age: ?? 37 ----- INDICATION ----- Type 2 diabetes - on Insulin Advanced maternal age Mild polyhydramnios METHOD ----- Transabdominal ultrasound examination. View: Sufficient. ----- Gonzalez . Number of fetuses: 1 DATING ----- ? Date ?Details ?Gest. age ?BROOKE LMP ?01/03/2023 ?36 w + 3 d ? 10/10/2023 Stated BROOKE ? 36 w + 3 d ? 10/10/2023 Previous U/S ?03/03/2023 ?GA, GA 8 w + 3 d ? 36 w + 3 d ? 10/10/2023 U/S ? 09/15/2023 ? based upon AC, BPD, Femur, HC ?38 w + 0 d ? 09/29/2023 Assigned dating ?based on the LMP, selected on 09/15/2023 ? 36 w + 3 d ? 10/10/2023 GENERAL EVALUATION ----- Cardiac activity present. FHR 136 bpm. movements: present. Presentation: cephalic Placenta: Anterior Umbilical cord: previously studied Amniotic fluid: Amount of AF: normal amount, subjectively high . MVP 8.7 cm. ALEX 22.2 cm. Q1 6.6 cm, Q2 4.6 cm, Q3 2.3 cm, Q4 8.7 cm BIOMETRY ----- BPD ? 93.1 ?mm ? 37w 6d ?Hadlock OFD ? 116.5 ?mm ? -/- ?Nicolaides HC ? 333.3 ?mm ? 38w 0d ? Hadlock AC ? 371.8 ?mm ? 41w 1d ?>99% ?Hadlock Femur ?67.7 ?mm ? 34w 6d ? Hadlock Weight Calculation: EFW ?3,689 ?g ?98% ? Hadlock EFW (lb,oz) ?8 lb 2 ?oz EFW by ? Josh ([id number]) ANATOMY ----- The following structures appear normal: Heart / Thorax ?Cardiac rhythm. sex: male. BIOPHYSICAL PROFILE ----- 2: breathing movements 2: Gross body movements 2: tone 2: Amniotic fluid volume 8/8 Biophysical profile score Interpretation: normal MATERNAL STRUCTURES ----- Cervix ?Not examined Right Ovary ?Not examined Left Ovary ?Not examined RECOMMENDATION ----- We discussed the findings on today's ultrasound with the patient. Based on the growth, previous polyhydramnios, and uncertain DM control I would recommend to consider delivery at 37 weeks. The patient should continue twice weekly BPPs until delivery. Return to primary provider for continued care. Thank-you for the opportunity to participate in the care of this patient. If you have questions regarding today's evaluation or if we can be of further service, please contact the Maternal- Medicine Center. anomalies may be present but not detected Procedure Note Mitch Jernigan MD - 09/15/2023 Comp Follow Up ----- Pat. Name: JACK EDWARDS Study Date: 09/15/2023 1:45pm Pat. NO: [id number] Referring MD: HOMAR MEDRANO Site: Satellite Specialist: Micha Gage RDMS : 1985 Age: 37 ----- INDICATION ----- Type 2 diabetes - on Insulin Advanced maternal age Mild polyhydramnios METHOD ----- Transabdominal ultrasound examination. View: Sufficient. ----- Gonzalez . Number of fetuses: 1 DATING ----- DateDetailsGest. age BROOKE LMP w + 3 d 10/10/2023 Stated EDD36 w + 3 d 10/10/2023 Previous U/S 03/03/2023 GA, GA8 w + 3 d36 w + 3 d 10/10/2023 U/S 09/15/2023ased upon AC, BPD, Femur, HC38 w + 0 d 09/29/2023 Assigned dating based on the LMP, selected on w + 3 d 10/10/2023 GENERAL EVALUATION ----- Cardiac activity present. FHR 136 bpm. movements: present.Presentation: cephalic Placenta: Anterior Umbilical cord: previously studied Amniotic fluid: Amount of AF: normal amount, subjectively high . MVP 8.7cm. ALEX 22.2 cm. Q1 6.6 cm, Q2 4.6 cm, Q3 2.3 cm, Q4 8.7 cm BIOMETRY ----- BPD 93.1mm 37w 6dHadlock OFD 116.5mm -/-Nicolaides HC 333.3mm 38w 0dHadlock AC 371.8mm 41w 1d >99%Hadlock Femur 67.7mm 34w 6dHadlock Weight Calculation: EFW 3,689g 98%Hadlock EFW (lb,oz) 8 lb 2oz EFW by Josh([id number]) ANATOMY ----- The following structures appear normal: Heart / Thorax Cardiac rhythm. sex: male. BIOPHYSICAL PROFILE ----- 2: breathing movements 2: Gross body movements 2: tone 2: Amniotic fluid volume 09/30 Biophysical profile score Interpretation: normal MATERNAL STRUCTURES ----- Cervix Not examined Right Ovary Not examined Left Ovary Not examined RECOMMENDATION ----- We discussed the findings on today's ultrasound with the patient. Based on the growth, previous polyhydramnios, and uncertain DMcontrol I would recommend to consider delivery at 37 weeks. The patientshould continue twice weekly BPPs until delivery. Return to primary provider for continued care. Thank-you for the opportunity to participate in the care of this patient.If you have questions regarding today's evaluation or if we can be offurther service, please contact the Maternal- Medicine Center. anomalies may be present but not detected IMPRESSION ----- 1. Gonzalez at 36w 3d gestational age. 2. Growth parameters and estimated weight were consistent with LGAgrowth. 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 3. The amniotic fluid volume is subjectively high. 4. BPP is reassuring. Luz Elena Betts MD [facility] US ORDERABLE S * [facility] BPP Single (09/08/2023 12:22 PM CDT) Only the most recent of5 resultswithin the time period is included. Anatomical Region Laterality Modality Ultrasound 09/08/2023 12:0 1 PM CDT Impressions 09/08/2023 12:24 PM CDT IMPRESSION ----- 1) Mild polyhydramnios. 2) BPP is reassuring. Narrative 09/08/2023 12:24 PM CDT ?BPP ----- Pat. Name: CORNELIA EDWARDSABEL ? Study Date: ??09/08/2023 12:01pm Pat. NO: ??[id number] ?Referring ??MD: HOMAR MEDRANO Site: ? Satellite Specialist: Gemma Pinzon RDMS : ??1985 ?Age: [...] BPP at your office weekly and at [facility] weekly. Return to primary provider for continued [...] EDWARDS Study Date: 09/08/2023 12:01pm Pat. NO: [id number] Referring MD: HOMAR MEDRANO Site: Satellite Specialist: Gemma Pinzon RDMS : 1985 Age: [...] B[facility] at your office weekly and [facility]. Return to primary provider for continued care. Thank-you for the opportunity to participate in the care of this patient.If you have questions regarding today's evaluation or if we can be offurther service, please contact the Maternal- Medicine Center. anomalies may be present but not detected IMPRESSION ----- 1) Mild polyhydramnios. 2) BPP is reassuring. Bassem Pathak MD [facility] ORDERABLE S * [facility] Non-Invasive Screening???Prequel (07/24/2023 2:49 PM CDT) See Scanned Result [employer] NON-INVASIVE SCREENING PREQUEL-Scann ed 08/02/2023 7:16 PM CDT [facility] Blood STRUCTURE OF RIGHT UPPER LIMB / Unknown Venipuncture / Unknown 07/24/2023 2:49 PM CDT 07/24/2023 2:49 PM CDT Laura Abdi LAB - BLOOD ORDERABL [facility] [address] [place] [address], [facility] [phone] * M Comprehensive Single (07/24/2023 2:13 PM [...] PM CDT ?Comprehensive ----- Pat. Name: JACK EDWRADS ? Study Date: ??07/24/2023 1:32pm Pat. NO: ??[id number] ?Referring ??MD: HOMAR MEDRANO Site: ??[facility] ? Satellite Specialist: Sujatha Joyce RDMS : ??1985 ?Age: [...] 3 lb 10 ?oz EFW by ?Hadlock ([id number]) Head / Face / Neck Biometry: Intermediate Teacher ? 3.6 ? mm CM ?5.7 [...] cava. Inferior vena cava. 3-vessel ? view. 2-uojsrt-tcboxur view. Cardiac position. Cardiac size. Cardiac rhythm. [...] are between 220-240. She is following a clock repair technician and has met with a physician industrial. No one has started her on insulin [...] medical record, and communicating with other health intensive care anaesthetist and/or care coordination. Please see note for details. Procedure Note Cristiane Patel MD - 07/24/2023 Comprehensive ----- Pat. Name: JACK EDWARDS Study Date: 07/24/2023 1:[facility] Pat. NO: [id number] Referring MD: HOMAR MEDRANO Site: [facility] Satellite Specialist: Sujatha Joyce RDMS : 1985 Age: [...] 3 lb 10 oz EFW by Hadlock ([id number]) Head / Face / Neck Biometry: Intermediate Teacher 3.6 mm CM 5.7 mm Nasal [...] Superior venacava. Inferior vena cava. 3-vessel view. 0-btprph-lontwfs view.Cardiac position. Cardiac size. Cardiac rhythm. Right [...] a diabetic educatorand has met with a physician industrial. No one has started her on insulin [...] electronic medical record, andcommunicating with other health intensive care anaesthetist and/or carecoordination. Please see note for details. [...] The BPP was 09/30. Homar Medrano APRN [facility] US ORDERABLES from Last 3 Months Care Teams Psychologist Research Assistant Relationship Specialty Start Date End Date Tre Ba MD [address] [facility] [address] [place] [address] PCP - General bench manager 01/15/22 Bassem Pathak MD [address] [facility] [address] [place], [place] [address] Assigned OBGYN Provider 08/16/23
--- OUTSIDE RECORDS SUMMARY | 2023-09-19 16:21 | XMS_ITS | Encounter Summary ---
Author Organization [place] Address [facility] [place] [address] Care Team Providers Care Clinical Appeals Specialist Name Role Phone Tre Ba MD Primary Care Provide r Bassem Pathak MD Unavailable [phone] Reason for Referral * Diagnostic Imaging Ultrasound (Routine) - Pending Review Specialty Diagnoses / Procedures Referred By Temo taylor Referred To Contact Radiology. Diagnoses Pre-existing type 2 diabetes mellitus during in third trimester Procedures [facility] [address] [place] [address] Referral ID Status Reason Start Date Expiration Date V isits Requested Visits Authorized [id number] Pending Review 07/30/2023 07/29/2024 1 1 Reason for Visit * Diagnostic Imaging Ultrasound (Routine) - Pending Review Specialty Diagnoses / Procedures Referred By Temo taylor Referred To Contact Radiology. Diagnoses Pre-existing type 2 diabetes mellitus during in third trimester Procedures [facility] Bassem Dhillon MD [address] [place] [address] Referral ID Status Reason Start Date Expiration Date V isits Requested Visits Authorized [id number] Pending Review 07/30/2023 07/29/2024 1 1 Encounter Details Date Type Department Care Team (Latest Contact Info) Description 09/08/2023 11:45 AM CDT - 09/08/2023 11:59 PM CDT Hospital Encounter [facility] Maternal [facility] [address] [place] [phone] Bassem Pathak MD [address] [place] [address] Mitch Jernigan MD [address] [place] [address] Pre-existing type 2 diabetes mellitus [...] Info) Description 09/22/2023 11:45 AM CDT Appointment [facility] [address] [facility] [address] [place] [phone] Rachel Reyna MD [address] [place] [address] 09/22/2023 12:15 PM CDT Office Visit [facility] Maternal [facility] [address] [place] [address] Rachel Reyna MD [address] [place] [address] 09/29/2023 11:45 AM CDT Appointment [facility] Maternal Medicine [place] [address] [place] [address] Luz Elena Betts MD [address] [place] [address] Lina Wu MD [address] [place] [address] 09/29/2023 12:15 PM CDT Office Visit [facility] Maternal Medicine [place] [address] [place] [phone] Luz Elena Betts MD [address] [place], [place] [address] Lina Wu MD [address] [place] [address] 10/06/2023 11:45 AM CDT Appointment [facility] Maternal Medicine [place] [address] [place] [phone] Luz Elena Betts MD [address] [place], [place] [address] 10/06/2023 12:15 PM CDT Office Visit [facility] Maternal Medicine [place] [address] [place] [phone] Luz Elena Betts MD [address] [address] documented as of this encounter Procedures Procedure Name Priority Date/Time Associated Diagnosis Comments MFM BPP SINGLE Routine 09/08/2023 12:22 PM CDT Pre-existing type 2 diabetes mellitus during in third trimester documented in this encounter Results * MFM BPP Single (09/08/2023 12:22 PM CDT) Anatomical Region Laterality Modality Ultrasound 09/08/2023 12:0 1 PM CDT Impressions 09/08/2023 12:24 PM CDT IMPRESSION ----- 1) Mild polyhydramnios. 2) BPP is reassuring. Narrative 09/08/2023 12:24 PM CDT ?BPP ----- Pat. Name: SHEBA WILDER ? Study Date: ??09/08/2023 12:01pm Pat. NO: ??[id number] ?Referring ??MD: HOMAR MEDRANO Site: ? Scaffold Erector: Gemma Pinzon RDMS : ??1985 ?Age: ?? [...] BPP at your office weekly and at [facility] weekly. Return to primary provider for [...] WILDER Study Date: 09/08/2023 12:01pm Pat. NO: [id number] Referring MD: HOMAR MEDRANO Site: Scaffold Erector: Gemma Pinzon RDMS : 1985 Age: 37 [...] [facility] Return to primary provider for continued care. Thank-you for the opportunity to participate in the care of this patient.If you have questions regarding today's evaluation or if we can be offurther service, please contact the [facility]. anomalies may be present but not detected IMPRESSION ----- 1) Mild polyhydramnios. 2) BPP is reassuring. Bassem Pathak MD [facility] US ORDERABLE S documented in this encounter Visit Diagnoses Diagnosis Pre-existing type 2 diabetes mellitus during in third trimester documented in this encounter Care Teams Clinical Appeals Specialist Relationship Specialty Start Date End Date Tre Ba MD [address] [place] [address] [address] [place], [place] [id number] PCP - General engineering mathematician 01/15/22 Bassem Pathak MD [address] [facility] [address] [place], [place] [address] Assigned OBGYN Provider 08/16/23 documented as of this encounter
--- OUTSIDE RECORDS SUMMARY | 2023-09-19 16:21 | XMS_ITS | Encounter Summary ---
Author Organization [place] Address [address] [place] [address]. [place] [address] Care Team Providers Care Movie Stunt Performer Name Role Phone Tre Ba MD Primary Care Provide r Bassem Pathak MD Unavailable [phone] Reason for Visit * (Routine) - Authorized Specialty Diagnoses / Procedures Referred By Temo taylor Referred To Contact Cardiology Diagnoses with type 2 diabetes mellitus in third trimester Procedures Echo (TTE) Complete Cristiane Patel MD [address] [place] [address] [facility] [address] [place] [phone] Referral ID Status Reason Start Date Expiration Date V isits Requested Visits Authorized [id number] Authorized 07/24/2023 07/23/2024 1 1 Encounter Details Date Type Department Care Team (Late st Contact Info) Description 09/17/2023 11:00 AM CDT Hospital Encounter [facility] [address] [place] [phone] Cristiane Patel MD [address] [place] [address] Social History Tobacco Use Types Packs/Day Years [...] Info) Description 09/22/2023 11:45 AM CDT Appointment [facility] Maternal Medicine [place] [address] [facility] [address] [place] [phone] Rachel Reyna MD [address] [place], [place] [address] 09/22/2023 12:15 PM CDT Office Visit [facility] [place] [address] [address] [place] [phone] Rachel Reyna MD [address] [place], [place] [address] 09/29/2023 11:45 AM CDT Appointment [facility] Maternal Medicine [place] [address] [place] [phone] Luz Elena Betts MD [address] [place], [place] [phone] Lina Wu MD [address] [place], [place] [address] 09/29/2023 12:15 PM CDT Office Visit [facility] Maternal Medicine [place] [address] [facility] [address] [place] [phone] Luz Elena Betts MD [address] [place], [place] [address] Lina Wu MD [address] [place] [address] 10/06/2023 11:45 AM CDT Appointment [facility] Maternal Medicine [facility] [address] [facility] [address] [place] [phone] Luz Elena Betts MD [address] [place], [place] [address] 10/06/2023 12:15 PM CDT Office Visit [facility] Maternal Medicine [facility] [address] [facility] [address] [place] [phone] Luz Elena Betts MD [address] [facility] [address] [place], [place] [address] Scheduled Orders Name Type Priority Associated Diagnoses Orde r Schedule Echo (TTE) Complete Echocardiography Routine with type 2 diabetes mellitus in third trimester Expected: 08/07/2023 (Approximate), Expires: 07/23/2024 documented as of this encounter Visit Diagnoses Not on filedocumented in this encounter Care Teams Movie Stunt Performer Relationship Specialty Start Date End Date Tre Ba MD [facility] TERRY PONCE [facility] [address] [place] [address] PCP - General anesthesiology physician assistant 01/15/22 Bassem Pathak MD [address] [place] [address] Assigned OBGYN Provider 08/16/23 documented as of this encounter
--- OUTSIDE RECORDS SUMMARY | 2023-09-19 16:21 | XMS_ITS | Encounter Summary ---
Author Organization [place] Address [address] [place] [address] Care Team Providers Care Neuro Psych Sales Specialist Name Role Phone Tre Ba MD Primary Care Provide r Reason for Referral * Diagnostic Imaging Ultrasound (Routine) - Pending Review Specialty Diagnoses / Procedures Referred By Temo taylor Referred To Contact Radiology. Diagnoses Diabetes mellitus, type 2 (H) Polyhydramnios affecting Procedures [facility] Cristiane Rubin MD [address] [place] [address] Referral ID Status Reason Start Date Expiration Date V isits Requested Visits Authorized [id number] Pending Review 07/24/2023 07/23/2024 1 1 Reason for Visit * Diagnostic Imaging Ultrasound (Routine) - Pending Review Specialty Diagnoses / Procedures Referred By Temo taylor Referred To Contact Radiology. Diagnoses Diabetes mellitus, type 2 (H) Polyhydramnios affecting Procedures [facility] Cristiane Rubin MD [address] [place] [address] Referral ID Status Reason Start Date Expiration Date V isits Requested Visits Authorized [id number] Pending Review 07/24/2023 07/23/2024 1 1 Encounter Details Date Type Department Care Team (Latest Contact Info) Description 08/14/2023 3:30 PM CDT - 08/14/2023 11:59 PM CDT Hospital Encounter [facility] [address] [place] [address] Cristiane Patel MD [address] [place], [place] [address] Mitch Jernigan MD [address] [place], [place] [address] Polyhydramnios affecting Discharge Disposition: Home or Self [...] Info) Description 09/22/2023 11:45 AM CDT Appointment [facility] [address] [place] [phone] Rachel Reyna MD [address] [place], [place] [address] 09/22/2023 12:15 PM CDT Office Visit [facility] [address] [place] [phone] Rachel Reyna MD [address] [place] [address] 09/29/2023 11:45 AM CDT Appointment [facility] [place] [address] [place] [address] Luz Elena Betts MD [address] [place] [address] Lina Wu MD [address] [place] [address] 09/29/2023 12:15 PM CDT Office Visit [facility] Maternal Medicine [place] [address] [place] [phone] Luz Elena Betts MD [address] [place] [address] Lina Wu MD [address] [place] [address] 10/06/2023 11:45 AM CDT Appointment [facility] Maternal Medicine [place] [address] [place] [phone] Luz Elena Betts MD [address] [place] [address] 10/06/2023 12:15 PM CDT Office Visit [facility] Maternal Medicine [place] [address] [place] [phone] Luz Elena Betts MD [address] [place] [address] documented as of this encounter Procedures Procedure Name Priority Date/Time Associated Diagnosis Comments [facility] BPP SINGLE Routine 08/14/2023 3:54 PM CDT Polyhydramnios affecting documented in this encounter Results * [facility] BPP Single (08/14/2023 3:54 PM CDT) Anatomical Region Laterality Modality Ultrasound 08/14/2023 3:35 PM CDT Impressions 08/14/2023 4:06 PM CDT IMPRESSION ----- 1) Mild polyhydramnios. 2) BPP is reassuring. Narrative 08/14/2023 4:06 PM CDT ?BPP ----- Pat. Name: SHEBA WILDER ? Study Date: ??08/14/2023 3:35pm Pat. NO: ??[id number] ?Referring ??MD: HOMAR MEDRANO Site: ? Funeral Professional: Gemma Pinzon RDMS : ??1985 ?Age: ?? [...] has not contacted your office or her manager business process. Currently we are not reviewing her blood [...] WILDER Study Date: 08/14/2023 3:35pm Pat. NO: [id number] Referring MD: HOMAR MEDRANO Site: Funeral Professional: Gemma Pinzon RDMS : 1985 Age: 37 [...] and has notcontacted your office or her manager business process. Currently we are not reviewing her blood [...] 2) BPP is reassuring. Cristiane Patel MD [facility] documented in this encounter Visit Diagnoses Diagnosis Polyhydramnios affecting documented in this encounter Care Teams Neuro Psych Sales Specialist Relationship Specialty Start Date End Date Tre Ba MD [address] [address] PCP - General egg processor 01/15/22 documented as of this encounter
--- OUTSIDE RECORDS SUMMARY | 2023-09-19 16:21 | XMS_ITS | Encounter Summary ---
Author Organization [place] Address [facility] [place] [address] Care Team Providers Care Supplies Packer Name Role Phone Tre Ba MD Primary Care Provide r Bassem Pathak MD Unavailable [phone] Reason for Referral * Diagnostic Imaging Ultrasound (Routine) - Pending Review Specialty Diagnoses / Procedures Referred By Temo taylor Referred To Contact Radiology. Diagnoses Pre-existing type 2 diabetes mellitus during in third trimester Procedures [facility] [address] [facility] [address] [place] [address] Referral ID Status Reason Start Date Expiration Date V isits Requested Visits Authorized [id number] Pending Review 07/30/2023 07/29/2024 1 1 Reason for Visit * Diagnostic Imaging Ultrasound (Routine) - Pending Review Specialty Diagnoses / Procedures Referred By Temo taylor Referred To Contact Radiology. Diagnoses Pre-existing type 2 diabetes mellitus during in third trimester Procedures [facility] Bassem Dhillon MD [address] [place] [address] Referral ID Status Reason Start Date Expiration Date V isits Requested Visits Authorized [id number] Pending Review 07/30/2023 07/29/2024 1 1 Encounter Details Date Type Department Care Team (Latest Contact Info) Description 08/25/2023 11:45 AM CDT - 08/25/2023 11:59 PM CDT Hospital Encounter [facility] Maternal Medicine [facility] [address] [place] [phone] Bassem Pathak MD [address] [place] [address] Luz Elena Betts MD [address] [place] [address] Pre-existing type 2 diabetes mellitus [...] Info) Description 09/22/2023 11:45 AM CDT Appointment [facility] M[facility] Medicine [place] [address] [address] [place] [phone] Rachel Reyna MD [address] [place], [place] [address] 09/22/2023 12:15 PM CDT Office Visit [facility] Maternal Medicine [facility] [address] [place] [address] Rachel Reyna MD [address] [place] [address] 09/29/2023 11:45 AM CDT Appointment [facility] Maternal Medicine [place] [address] [place] [address] Luz Elena Betts MD [address] [place] [address] Lina Wu MD [address] [place] [address] 09/29/2023 12:15 PM CDT Office Visit [facility] Maternal Medicine [place] [address] [place] [phone] Luz Elena Betts MD [address] [place], [place] [address] Lina Wu MD [address] [place] [address] 10/06/2023 11:45 AM CDT Appointment [facility] Maternal Medicine [place] [address] [place] [phone] Luz Elena Betts MD [address] [place], [place] [address] 10/06/2023 12:15 PM CDT Office Visit [facility] Maternal Medicine [place] [address] [place] [phone] Luz Elena Betts MD [address] [place] [address] documented as of this encounter Procedures Procedure [...] ? Study Date: ??08/25/2023 11:48am Pat. NO: ??[id number] ?Referring ??MD: HOMAR MEDRANO Site: ? Acute Care Clinical Nurse Specialist: Micha Gage RDMS : ??1985 ?Age: [...] surveillance with twice weekly BPP, alternating between [facility] and [facility]. Return to primary provider for continued [...] WILDER Study Date: 08/25/2023 11:48am Pat. NO: [id number] Referring MD: HOMAR MEDRANO Site: Acute Care Clinical Nurse Specialist: Micha Gage RDMS : 1985 Age: [...] Continue surveillance with twice weekly [facility], [facility]. Return to primary provider for [...] Mild polyhydramnios is noted. Bassem Pathak MD [facility] ORDERABLE S documented in this encounter Visit Diagnoses Diagnosis Pre-existing type 2 diabetes mellitus during in third trimester documented in this encounter Care Teams Supplies Packer Relationship Specialty Start Date End Date Tre Ba MD [address] [place] [address] [address] [place] [address] PCP - General online user experience strategist 01/15/22 Bassem Pathak MD [address] [place] [address] Assigned OBGYN Provider 08/16/23 documented as of this encounter
--- OUTSIDE RECORDS SUMMARY | 2023-09-19 16:21 | XMS_ITS | Encounter Summary ---
Author Organization [place] Address [facility] [place] [address] Care Team Providers Care Pharmacy Service Associate Name Role Phone Tre Ba MD Primary Care Provide r Bassem Pathak MD Unavailable [phone] Reason for Referral * Diagnostic Imaging Ultrasound (Routine) - Pending Review Specialty Diagnoses / Procedures Referred By Temo taylor Referred To Contact Radiology. Diagnoses Diabetes mellitus, type 2 (H) Polyhydramnios affecting Procedures [facility] US Comprehensive Single F/U Cristiane Patel MD [address] [place] [address] Referral ID Status Reason Start Date Expiration Date V isits Requested Visits Authorized [id number] Pending Review 07/24/2023 07/23/2024 1 1 Reason for Visit * Diagnostic Imaging Ultrasound (Routine) - Pending Review Specialty Diagnoses / Procedures Referred By Temo taylor Referred To Contact Radiology. Diagnoses Diabetes mellitus, type 2 (H) Polyhydramnios affecting Procedures [facility] US Comprehensive Single F/U Cristiane Patel MD [address] [place] [address] Referral ID Status Reason Start Date Expiration Date V isits Requested Visits Authorized [id number] Pending Review 07/24/2023 07/23/2024 1 1 Encounter Details Date Type Department Care Team (Latest Contact Info) Description 08/21/2023 11:45 AM CDT - 08/21/2023 11:59 PM CDT Hospital Encounter [facility] [place] [address] [place] [phone] Cristiane Patel MD [address] [place] [address] Mitch Jernigan MD [address] [place] [address] Polyhydramnios affecting Discharge Disposition: Home [...] Info) Description 09/22/2023 11:45 AM CDT Appointment [facility] Medicine [place] [address] [place] [phone] Rachel Reyna MD [address] [place], [place] [address] 09/22/2023 12:15 PM CDT Office Visit [facility] Medicine [place] [address] [place] [phone] Rachel Reyna MD [address] [place] [address] 09/29/2023 11:45 AM CDT Appointment [facility] Medicine [place] [address] [place] [address] Luz Elena Betts MD [address] [place] [address] Lina Wu MD [address] [place] [address] 09/29/2023 12:15 PM CDT Office Visit [facility] [place] [address] [place] [phone] Luz Elena Betts MD [address] [place] [address] Lina Wu MD [address] [place] [address] 10/06/2023 11:45 AM CDT Appointment [facility] Medicine [place] [address] [place] [phone] Luz Elena Betts MD [address] [place] [address] 10/06/2023 12:15 PM CDT Office Visit [facility] [place] [address] [place] [phone] Luz Elena Betts MD [address] [address] documented as of this encounter Procedures Procedure Name Priority Date/Time Associated Diagnosis Comments [facility] US COMPREHENSIVE SINGLE F/U Routine 08/21/2023 12:39 PM CDT Polyhydramnios affecting documented in this encounter Results * [facility] US Comprehensive Single F/U (08/21/2023 12:39 [...] ? Study Date: ??08/21/2023 11:58am Pat. NO: ??[id number] ?Referring ??MD: HOMAR MEDRANO Site: ? Pad Assembler: Yamila Dutton RDMS : ??1985 ?Age: [...] lb 4 ?oz EFW by ? Hadlock ([id number]) Head / Face / Neck Biometry: Lehr Stripper ?4.4 ? mm ANATOMY ----- The following [...] Heart / Thorax ?RVOT view. LVOT view. 0-bcntfj-vdfzbdq view. Spine ?Cervical spine. sex: male. MATERNAL STRUCTURES ----- Cervix ?Suboptimal Right Ovary ?Not examined Left Ovary ?Not examined RECOMMENDATION ----- We discussed the findings on today's ultrasound with the patient. The patient has the following ultrasounds already scheduled: 1) BPP once weekly at your clinic. 2) BPP once weekly at [facility]. 3) echo on 08/28/23 with Pediatric Cardiology. 4) growth assessment at [facility] in 4 weeks. Given the polyhydramnios [...] WILDER Study Date: 08/21/2023 11:58am Pat. NO: [id number] Referring MD: HOMAR MEDRANO Site: Pad Assembler: Yamila Dutton RDMS : 1985 Age: [...] EFW (lb,oz) 6 lb 4oz EFW by Hadlock([id number]) Head / Face / Neck Biometry: Lehr Stripper 4.4mm ANATOMY ----- The following structures appear normal: Head / Neck Cranium. Head size. Head shape.Lateral ventricles. Midline falx. Cavum septi pellucidi. Cerebellum.Cisterna magna. Thalami. Face Profile. Heart / Thorax 4-chamber view. Diaphragm. Abdomen Stomach. Kidneys. Bladder. Spine Thoracic spine. Lumbar spine.Sacral spine. The following structures were documented previously: Face Lips. Nose. Heart / Thorax RVOT view. LVOT view. 8-jbxhli-kcgruwnugea. Spine Cervical spine. sex: male. MATERNAL STRUCTURES ----- Cervix Suboptimal Right Ovary Not examined Left Ovary Not examined RECOMMENDATION ----- We discussed the findings on today's ultrasound with the patient. The patient has the following ultrasounds already scheduled: 1) BPP once weekly at your clinic. 2) BPP once weekly at [facility]. 3) echo on 08/28/23 with Pediatric Cardiology. 4) growth assessment at [facility] in 4 weeks. Given the polyhydramnios [...] affecting documented in this encounter Care Teams Pharmacy Service Associate Relationship Specialty Start Date End Date Tre Ba MD [facility] [address] [place], [place] [id number] PCP - General webmethods architect 01/15/22 Bassem Pathak MD [address] [place], [place] [address] Assigned OBGYN Provider 08/16/23 documented as of this encounter
--- OUTSIDE RECORDS SUMMARY | 2023-09-19 16:21 | XMS_ITS | Encounter Summary ---
Author Organization [place] Address [address] [facility] [place] [address] Care Team Providers Care Marble Cutter Name Role Phone Tre Ba MD Primary Care Provide r Bassem Pathak MD Unavailable [phone] Encounter Details Date Type Department Care Team (Latest Contact Info) Description 09/15/2023 Travel Social History Tobacco Use Types Packs/Day [...] Upcoming Encounters Date Type Department Care Team ( st Contact Info) Description 09/22/2023 11:45 AM CDT Appointment [facility] [place] [address] [place] [address] Rachel Reyna MD [address] [place] [address] 09/22/2023 12:15 PM CDT Office Visit [facility] [place] [address] [place] [phone] Rachel Reyna MD [address] [place] [address] 09/29/2023 11:45 AM CDT Appointment [facility] [place] [address] [facility] [address] [place] [phone] Luz Elena Betts MD [address] [place] [address] Lina Wu MD [address] [place] [address] 09/29/2023 12:15 PM CDT Office Visit [facility] [place] [address] [facility] [address] [place] [phone] Luz Elena Betts MD [address] [place] [address] Lina Wu MD [address] [place] [address] 10/06/2023 11:45 AM CDT Appointment [facility] [place] [address] [facility] [address] [place] [phone] Luz Elena Betts MD [address] [place] [address] 10/06/2023 12:15 PM CDT Office Visit [facility] [place] [address] [facility] [address] [place] [phone] Luz Elena Betts MD [address] [place] [address] documented as of this encounter Visit Diagnoses Not on filedocumented in this encounter Care Teams Marble Cutter Relationship Specialty Start Date End Date Tre Ba MD [facility] [place] [address] PCP - General steward/stewardess railroad dining car 01/15/22 Bassem Pathak MD [address] [facility] [address] [place] [address] Assigned OBGYN Provider 08/16/23 documented as of this encounter
--- OUTSIDE RECORDS SUMMARY | 2023-09-19 16:21 | XMS_ITS | Referral Summary ---
Author Organization [place] Address [address] [place] [address]. [place] [address] Care Team Providers Care Hydraulic Chair Assembler Name Role Phone Tre Ba MD Primary Care Provide r Bassem Pathak MD Unavailable Encounters Date Type Department Care Team Description 09/17/2023 11:00 AM CDT Hospital Encounter [facility] [address] [place] [phone] Cristiane Patel MD 09/16/2023 Telephone [facility] [address] [place] [phone] Cheri Peters LPN 09/15/2023 Travel 09/15/2023 2:00 PM CDT Office Visit [facility] [address] [facility] [address] [place] [phone] Mitch Jernigan MD Pre-existing type 2 diabetes mellitus during in third trimester (Primary Dx); Polyhydramnios affecting 09/15/2023 1:30 PM CDT - 09/15/2023 11:59 PM CDT Hospital Encounter [facility] [address] [facility] [address] [place] [phone] Mitch Jernigan MD Pre-existing type 2 diabetes mellitus during in third trimester Discharge Disposition: Home or Self Care 09/08/2023 Travel 09/08/2023 12:15 PM CDT Office Visit [facility] [address] [place] [address] Bassem Pathak MD Rauk, Mitch Walker MD Pre-existing type 2 diabetes mellitus during in third trimester (Primary Dx) 09/08/2023 11:45 AM CDT - 09/08/2023 11:59 PM CDT Hospital Encounter [facility] [place] [address] [place] [address] Bassem Pathak MD Rauk, Mitch Walker MD Pre-existing type 2 diabetes mellitus during in third trimester Discharge Disposition: Home or Self Care 09/02/2023 Travel 09/02/2023 12:15 PM CDT Office Visit [facility] [place] [address] [place] [address] Luz Elena Betts MD Pre-existing type 2 diabetes mellitus during in third trimester (Primary Dx) 09/02/2023 11:45 AM CDT - 09/02/2023 11:59 PM CDT Hospital Encounter [facility] [place] [address] [place] [phone] Luz Elena Betts MD Pre-existing type 2 diabetes mellitus during in third trimester Discharge Disposition: Home or Self Care 08/26/2023 Telephone [facility] [address] [phone] Cheri Peters LPN 08/25/2023 Travel 08/25/2023 12:15 PM CDT Office Visit [facility] [place] [address] [place] [phone] Bassem Pathak MD Yamamura, Yasuko, MD Pre-existing type 2 diabetes mellitus during in third trimester (Primary Dx); Polyhydramnios in third trimester complication, single or unspecified fetus 08/25/2023 11:45 AM CDT - 08/25/2023 11:59 PM CDT Hospital Encounter [facility] [place] [address] [place] [phone] Bassem Pathak MD Yamamura, Yasuko, MD Pre-existing type 2 diabetes mellitus during in third trimester Discharge Disposition: Home or Self Care 08/21/2023 Travel 08/21/2023 12:15 PM CDT Office Visit [facility] [place] [address] [place] [phone] Cristiane Patel MD Rauk, Mitch Walker MD Pre-existing type 2 diabetes mellitus during in third trimester (Primary Dx); Polyhydramnios affecting 08/21/2023 11:45 AM CDT - 08/21/2023 11:59 PM CDT Hospital Encounter [facility] [place] [address] [place] [phone] Cristiane Patel MD Rauk, Mitch Walker MD Polyhydramnios affecting Discharge Disposition: Home or Self Care 08/14/2023 Travel 08/14/2023 4:00 PM CDT Office Visit [facility] [place] [address] [place] [phone] Cristiane Patel MD Rauk, Phillip Neil, MD Pre-existing type 2 diabetes mellitus during in third trimester (Primary Dx); Polyhydramnios affecting 08/14/2023 3:30 PM CDT - 08/14/2023 11:59 PM CDT Hospital Encounter [facility] [place] [address] [place] [phone] Cristiane Paetl MD Rauk, Phillip Neil, MD Polyhydramnios affecting Discharge Disposition: Home or Self Care 08/03/2023 Telephone [facility] [address] [place] [phone] Laura Abdi, CONCEPCION Results (Low Risk Expanded NIPT) 07/30/2023 Travel 07/30/2023 4:00 PM CDT Office Visit [facility] [address] [place] [phone] Bassem Pathak MD Pre-existing type 2 diabetes mellitus during in third trimester (Primary Dx) 07/30/2023 3:25 PM CDT - 07/30/2023 11:59 PM CDT Hospital Encounter [facility] [address] [place] [phone] Bassem Pathak MD Polyhydramnios affecting Discharge Disposition: Home or Self Care 07/29/2023 Telephone [facility] [address] [place] [address] Carrie Smith, JD Care (/) 07/24/2023 Medical Correspondence [facility] [address] [facility] [address] Scan, Non-Provider 07/24/2023 2:40 PM CDT Lab [facility] [address] [place] [phone] Cristiane Patel MD Multigravida of advanced maternal age in third trimester 07/24/2023 Travel 07/24/2023 2:00 PM CDT Office Visit [facility] [address] [place] [address] Cristiane Patel MD with type 2 diabetes mellitus in third trimester (Primary Dx); Polyhydramnios affecting 07/24/2023 12:50 PM CDT - 07/24/2023 11:59 PM CDT Hospital Encounter [facility] [address] [place] [phone] Cristiane Patel MD related condition, antepartum Discharge Disposition: Home or Self Care 07/24/2023 12:45 PM CDT Office Visit [facility] [address] [place] [phone] Cristiane Patel MD Daykin, Emily C, GC Multigravida of advanced maternal age in third trimester (Primary Dx); related condition, antepartum 07/08/2023 PRE VISIT [facility] [address] [place] [phone] Melissa Aguiar RN Ultrasound (L2-AMA) 07/03/2023 Medical Correspondence [facility] Info Mg[facility] [address] [facility] [address] Scan, Non-Provider 07/03/2023 Transcribe Orders [facility] [place] [address] [address] [facility] [address] [place] [phone] Homar Medrano, RESTAURANT TEAM MEMBER RAILWAY SWITCH OPERATOR related condition, antepartum (Primary Dx) from [...] Comments Blood Pressure 112/59 01/20/2022 11:00 PM QUALITY ASSURANCE GROUP LEADER Pulse 80 01/20/2022 11:00 PM QUALITY ASSURANCE GROUP LEADER Temperature 37.1 ??C (98.7 ??F) 01/20/2022 10:[address] Respiratory Rate 16 01/20/2022 11:00 PM QUALITY ASSURANCE GROUP LEADER Oxygen Saturation 100% 01/20/2022 11:30 PM QUALITY ASSURANCE GROUP LEADER Inhaled Oxygen Concentration - - Weight 76.4 kg (168 lb 6.4 oz) 01/20/2022 4:42 P M QUALITY ASSURANCE GROUP LEADER Height 154.9 cm (5' 1) 01/20/2022 4:42 PM QUALITY ASSURANCE GROUP LEADER Body Mass Index 31.82 01/20/2022 4:42 PM QUALITY ASSURANCE GROUP LEADER Plan of Treatment Upcoming Encounters Date Type Department Care Team (Late st Contact Info) Description 09/22/2023 11:45 AM CDT Appointment [facility] [place] [address] [place] [phone] Rachel Reyna MD [address] [place] [address] 09/22/2023 12:15 PM CDT Office Visit [facility] [address] [place] [phone] Rachel Reyna MD [address] [place], [place] [address] 09/29/2023 11:45 AM CDT Appointment [facility] [address] [place] [phone] Luz Elena Betts MD [address] [place], [place] [address] Lina Wu MD [address] [place] [address] 09/29/2023 12:15 PM CDT Office Visit [facility] [place] [address] [place] [address] Luz Elena Betts MD [address] [place] [address] Lina Wu MD [address] [place] [address] 10/06/2023 11:45 AM CDT Appointment [facility] [address] [place] [phone] Luz Elena Betts MD [address] [place] [address] 10/06/2023 12:15 PM CDT Office [facility] [address] [place] [phone] Luz Elena Betts MD [address] [place], [place] [address] Procedures Procedure Name Priority Date/Time Associated Diagnosis Comments [facility] SINGLE F/U Routine 09/15/2023 2:12 PM CDT Pre-existing type 2 diabetes mellitus during in third trimester [facility] SINGLE Routine 09/08/2023 12:22 PM CDT Pre-existing type 2 diabetes mellitus during in third trimester [facility] SINGLE Routine 09/02/2023 12:22 PM CDT Pre-existing type 2 diabetes mellitus during in third trimester [facility] BPP SINGLE Routine 08/25/2023 12:05 PM CDT Pre-existing type 2 diabetes mellitus during in third trimester [facility] US COMPREHENSIVE SINGLE F/U Routine 08/21/2023 12:39 PM CDT Polyhydramnios affecting [facility] BPP SINGLE Routine 08/14/2023 3:54 PM CDT Polyhydramnios affecting [facility] BPP SINGLE Routine 07/30/2023 3:46 PM CDT Polyhydramnios affecting [facility] NON-INVASIVE SCREENING PREQUEL Routine 07/24/2023 2:49 PM CDT Multigravida of advanced maternal age in third trimester [facility] US COMPREHENSIVE SINGLE Routine 07/24/2023 2:13 PM CDT related condition, antepartum from Last 3 Months Results * [facility] US Comprehensive Single F/U (09/15/2023 2:12 PM CDT) [...] ? Study Date: ??09/15/2023 1:45pm Pat. NO: ??[id number] ?Referring ??MD: HOMAR MEDRANO Site: ? [place] C[place]: Micha Gage RDMS : ??1985 ?Age: ?? [...] ?8 lb 2 ?oz EFW by ? Hadlock ([id number]) ANATOMY ----- The following structures appear normal: [...] EDWARDS Study Date: 09/15/2023 1:45pm Pat. NO: [id number] Referring MD: HOMAR MEDRANO Site: [place]: Micha Gage RDMS : 1985 Age: 37 [...] EFW (lb,oz) 8 lb 2oz EFW by Hadlock([id number]) ANATOMY ----- The following structures appear normal: Heart / Thorax Cardiac rhythm. sex: male. BIOPHYSICAL PROFILE ----- 2: breathing movements 2: Gross body movements 2: tone 2: Amniotic fluid volume 8 Biophysical profile score Interpretation: normal MATERNAL STRUCTURES [...] BPP is reassuring. Luz Elena Betts MD [facility] US ORDERABLE S * [facility] BPP Single (09/08/2023 12:22 PM CDT) Only the most recent of5 resultswithin the time period is included. Anatomical Region Laterality Modality Ultrasound 09/08/2023 12:0 1 PM CDT Impressions 09/08/2023 12:24 PM CDT IMPRESSION ----- 1) Mild polyhydramnios. 2) BPP is reassuring. Narrative 09/08/2023 12:24 PM CDT ?BPP ----- Pat. Name: GRACEJACK Wall ? Study Date: ??09/08/2023 12:01pm Pat. NO: ??[id number] ?Referring ??MD: HOMAR MEDRANO Site: ? [place]: Gemma Pinzon RDMS : ??1985 ?Age: ?? [...] BPP at your office weekly and at [facility] weekly. Return to primary provider for [...] EDWARDS Study Date: 09/08/2023 12:01pm Pat. NO: [id number] Referring MD: HOMAR MEDRANO Site: [place]: Gemma Pinzon RDMS : 1985 Age: 37 [...] [facility] Return to primary provider for continued care. Thank-you for the opportunity to participate in the care of this patient.If you have questions regarding today's evaluation or if we can be offurther service, please contact the Maternal- Medicine Center. anomalies may be present but not detected IMPRESSION ----- 1) Mild polyhydramnios. 2) BPP is reassuring. Bassem Pathak MD Lydia [facility] US ORDERABLE S * [facility] Non-Invasive Screening???Prequel (07/24/2023 2:49 PM CDT) See Scanned Result [facility] NON-INVASIVE SCREENING PREQUEL-Scann ed 08/02/2023 7:16 PM CDT [facility] Blood STRUCTURE OF RIGHT UPPER LIMB / Unknown Venipuncture / Unknown 07/24/2023 2:49 PM CDT 07/24/2023 2:49 PM CDT Laura Abdi LAB - BLOOD ORDERABL ES [facility] [address] [place] [address], [place] [phone] * [facility] US Comprehensive Single (07/24/2023 2:13 PM [...] ? Study Date: ??07/24/2023 1:32pm Pat. NO: ??[id number] ?Referring ??MD: HOMAR MEDRANO Site: ??[facility] ? [place] C[place]: Sujatha Joyce RDMS : ??1985 ?Age: ?? [...] 3 lb 10 ?oz EFW by ?Hadlock ([id number]) Head / Face / Neck Biometry: Securities Settlement Processor ? 3.6 ? mm CM ?5.7 ? [...] cava. Inferior vena cava. 3-vessel ? view. 3-omdrwn-yhcjezl view. Cardiac position. Cardiac size. Cardiac rhythm. [...] are between 220-240. She is following a paraeducator and has met with a wire winder. No one has started her on [...] and communicating with other health home health care social worker and/or care coordination. Please see note for details. Procedure Note Cristiane Patel MD - 07/24/2023 Comprehensive ----- Pat. Name: JACK EDWARDS Study Date: 07/24/2023 1:32pm Pat. NO: [id number] Referring MD: HOMAR MEDRANO Site: [facility] [place] C[place]: Sujatha Joyce RDMS : 1985 Age: 37 [...] 3 lb 10 oz EFW by Hadlock ([id number]) Head / Face / Neck Biometry: Securities Settlement Processor 3.6 mm CM 5.7 mm Nasal bone [...] Superior venacava. Inferior vena cava. 3-vessel view. 0-twmjrj-lyrkkoa view.Cardiac position. Cardiac size. Cardiac rhythm. Right [...] a diabetic educatorand has met with a wire winder. No one has started her on [...] record, andcommunicating with other health home health care social worker and/or carecoordination. Please see note for [...] BPP was 09/30. Homar Medrano APRN RAILWAY SWITCH OPERATOR [facility] US ORDERABLES from Last 3 Months Care Teams Hydraulic Chair Assembler Relationship Specialty Start Date End Date Tre Ba MD [address] [place] [address] [address] [place] [address] PCP - General computer assistant 01/15/22 Bassem Pathak MD [address] [address] [place] [address] Assigned OBGYN Provider 08/16/23
--- OUTSIDE RECORDS SUMMARY | 2023-09-19 16:21 | XMS_ITS | Encounter Summary ---
Author Organization [place] Address [address] [place] [address] Care Team Providers Care Brush Cleaner Name Role Phone Tre Ba MD Primary Care Provide r Bassem Pathak MD Unavailable [phone] Reason for Visit * Reason Comments Ultrasound BPP-T2DM Encounter Details Date Type Department Care Team (Late st Contact Info) Description 09/08/2023 12:15 PM CDT Office Visit [facility] [place] [address] [facility] [address] [place] [address] Bassem Pathak MD [address] [place] [address] Mitch Jernigan MD [address] [place] [address] Pre-existing type 2 diabetes mellitus [...] for details of today's US at the [facility]. Mitch Jernigan MD Maternal- Medicine documented in this encounter Nursing Notes * Melissa Aguiar RN - 09/08/2023 12:15 PM CDT Patient reports good movement, reports irregular contractions, denies leaking of fluid, or bleeding. Reports blood sugar values are well controlled on insulin. SBAR given to [facility] , see their note in Epic. documented in this encounter Plan of Treatment Upcoming Encounters Date Type Department Care Team (Late st Contact Info) Description 09/22/2023 11:45 AM CDT Appointment [facility] Medicine [place] [address] [facility] [address] [place] [phone] Rachel Reyna MD [address] [place] [address] 09/22/2023 12:15 PM CDT Office Visit [facility] Medicine [place] [address] [facility] [address] [place] [phone] Rachel Reyna MD [address] [place], [place] [address] 09/29/2023 11:45 AM CDT Appointment [facility] [place] [address] [facility] [address] [place] [phone] Luz Elena Betts MD [address] [place], [place] [address] Lina Wu MD [address] [place] [address] 09/29/2023 12:15 PM CDT Office Visit [facility] [address] [facility] [address] [place] [phone] Luz Elena Betts MD [address] [place] [address] Lina Wu MD [address] [place] [address] 10/06/2023 11:45 AM CDT Appointment [place] [address] [address] [facility] [address] [place] [phone] Luz Elena Betts MD [address] [place] [address] 10/06/2023 12:15 PM CDT Office Visit [place] [address] [address] [facility] [address] [place] [phone] Luz Elena Betts MD [address] [place] [address] documented as of this encounter Visit Diagnoses Diagnosis Pre-existing type 2 diabetes mellitus during in third trimester- Primary documented in this encounter Care Teams Brush Cleaner Relationship Specialty Start Date End Date Tre Ba MD [facility] [address] [address] PCP - General mold sander 01/15/22 Bassem Pathak MD [address] [place] [address] Assigned OBGYN Provider 08/16/23 documented as of this encounter
--- OUTSIDE RECORDS SUMMARY | 2023-09-19 16:21 | XMS_ITS | Encounter Summary ---
Author Organization [place] Address [address] [place] [address] Care Team Providers Care Handling Tech Name Role Phone Tre Ba MD Primary Care Provide r Bassem Pathak MD Unavailable [phone] Encounter Details Date Type Department Care Team [...] Info) Description 09/22/2023 11:[address] [facility] Maternal Medicine Center [place] [address] [place] [address] Rachel Reyna MD [address] [place] [address] 09/22/2023 12:15 PM CDT Office Visit [facility] Medicine [facility] [place] [address] [place] [phone] Rachel Reyna MD [address] [place] [address] 09/29/2023 11:[address] [facility] Maternal Medicine [place] [address] [facility] [address] [place] [phone] Luz Elena Betts MD [address] [place] [address] Lina Wu MD [address] [place] [address] 09/29/2023 12:15 PM CDT Office Visit [facility] Maternal Medicine [place] [address] [facility] [address] [place] [phone] Luz Elena Betts MD [address] [place] [address] Lina Wu MD [address] [place] [address] 10/06/2023 11:45 AM CDT Appointment [facility] Medicine [place] [address] [facility] [address] [place] [phone] Luz Elena Betts MD [address] [place] [address] 10/06/2023 12:15 PM CDT Office Visit [facility] Maternal Medicine [place] [address] [address] [facility] [address] [place] [phone] Luz Elena Betts MD [address] [place] [address] documented as of this encounter Visit Diagnoses Not on filedocumented in this encounter Care Teams Handling Tech Relationship Specialty Start Date End Date Tre Ba MD [facility] [place] [address] PCP - General veterinary hospital shift lead 01/15/22 Bassem Pathak MD [address] [facility] [address] [place] [address] Assigned OBGYN Provider 08/16/23 documented as of this encounter
--- OUTSIDE RECORDS SUMMARY | 2023-09-19 16:21 | XMS_ITS | Encounter Summary ---
Author Organization [place] Address [address] [place] [address] Care Team Providers Care Urban Sociologist Name Role Phone Tre Ba MD Primary Care Provide r Bassem Pathak MD Unavailable [phone] Encounter Details Date Type Department Care Team [...] Info) Description 09/22/2023 11:45 AM CDT Appointment [facility] [place] [address] [place] [address] Rachel Reyna MD [address] [place] [address] 09/22/2023 12:15 PM CDT Office Visit [facility] [place] [address] [place] [phone] Rachel Reyna MD [address] [place] [address] 09/29/2023 11:45 AM CDT Appointment [facility] M[facility] Medicine [place] [address] [facility] [address] [place] [phone] Luz Elena Betts MD [address] [place] [address] Lina Wu MD [address] [place] [address] 09/29/2023 12:15 PM CDT Office Visit [facility] [place] [address] [facility] [address] [place] [phone] Luz Elena Betts MD [address] [place] [address] Lina Wu MD [address] [place] [address] 10/06/2023 11:45 AM CDT Appointment [facility] Medicine [place] [address] [facility] [address] [place] [phone] Luz Elena Betts MD [address] [place] [address] 10/06/2023 12:15 PM CDT Office Visit [facility] Maternal Medicine [place] [address] [facility] [address] [place] [phone] Luz Elena Betts MD [address] [place] [address] documented as of this encounter Visit Diagnoses Not on filedocumented in this encounter Care Teams Urban Sociologist Relationship Specialty Start Date End Date Tre Ba MD [facility] [place] [address] PCP - General client strategist 01/15/22 Bassem Pathak MD [address] [facility] 400 [place] [address] Assigned OBGYN Provider 08/16/23 documented as of this encounter
--- OUTSIDE RECORDS SUMMARY | 2023-09-19 16:21 | XMS_ITS | Encounter Summary ---
Author Organization [place] Address [address] [facility] [place] [address] Care Team Providers Care Decorator Mannequin Name Role Phone Tre Ba MD Primary Care Provide r Bassem Pathak MD Unavailable [phone] Encounter Details Date Type Department Care Team [...] Info) Description 09/22/2023 11:45 AM CDT Appointment [facility] M[facility] [place] [address] [place] [address] Rachel Reyna MD [address] [place] [address] 09/22/2023 12:15 PM CDT Office Visit [facility] [place] [address] [place] [phone] Rachel Reyna MD [address] [place] [address] 09/29/2023 11:45 AM CDT Appointment [facility] Maternal Medicine [place] [address] [facility] [address] [place] [phone] Luz Elena Betts MD [address] [place] [address] Lina Wu MD [address] [place] [address] 09/29/2023 12:15 PM CDT Office Visit [facility] Medicine [place] [address] [address] [facility] [address] [place] [phone] Luz Elena Betts MD [address] [place] [address] Lina Wu MD [address] [place] [address] 10/06/2023 11:45 AM CDT Appointment [facility] Medicine [place] [address] [facility] [address] [place] [phone] Luz Elena Betts MD [address] [place] [address] 10/06/2023 12:15 PM CDT Office Visit [facility] Maternal Medicine [place] [address] [address] [facility] [address] [place] [phone] Luz Elena Betts MD [address] [place] [address] documented as of this encounter Visit Diagnoses Not on filedocumented in this encounter Care Teams Decorator Mannequin Relationship Specialty Start Date End Date Tre Ba MD [facility] [place] [address] PCP - General call center director 01/15/22 Bassem Pathak MD [address] [facility] 400 [place] [address] Assigned OBGYN Provider 08/16/23 documented as of this encounter
--- OUTSIDE RECORDS SUMMARY | 2023-09-19 16:21 | XMS_ITS | Encounter Summary ---
Author Organization [place] Address [address] [facility] [place] [address] Care Team Providers Care Front Office Spec Name Role Phone Tre Ba MD Primary Care Provide r Bassem Pathak MD Unavailable Reason for Visit * Reason Comments Ultrasound RL2/BPP- DM2 poor co ntrol Encounter Details Date Type Department Care Team (Late st Contact Info) Description 08/21/2023 12:15 PM CDT Office Visit [facility] M[facility] Medicine [facility] [place] [address] [facility] [address] [place] [address] Cristiane Patel MD [address] [place] [address] Mitch Jernigan MD [address] [place] [address] Pre-existing type 2 diabetes mellitus [...] for details of today's US at the [facility]. Mitch Jernigan MD Maternal- Medicine documented in this encounter Nursing Notes * Laura Vila RN - 08/21/2023 12:15 PM CDT Pt at [facility] for ultrasound- see detailed report under imaging tab. Pt reports positive movement, denies other concerns at this time. Has been able to bean picker machine operator insulin- reports fasting value of 93,after meal 115. SBAR given to MD. documented in this encounter Plan of Treatment Upcoming Encounters Date Type Department Care Team (Late st Contact Info) Description 09/22/2023 11:45 AM CDT Appointment [facility] [address] [facility] [address] [place] [phone] Rachel Reyna MD [address] [place], [place] [address] 09/22/2023 12:15 PM CDT Office Visit [facility] [address] [facility] [address] [place] [phone] Rachel Reyna MD [address] [place], [place] [address] 09/29/2023 11:45 AM CDT Appointment [facility] [address] [place] [phone] Luz Elena Betst MD [address] [place], [place] [address] Lina Wu MD [address] [place] [address] 09/29/2023 12:15 PM CDT Office Visit [facility] [address] [place] [phone] Luz Elena Betts MD [address] [place] [address] Lina Wu MD [address] [place] [address] 10/06/2023 11:45 AM CDT Appointment [facility] [place] [address] [facility] [address] [place] [phone] Luz Elena Betts MD [address] [place] [address] 10/06/2023 12:15 PM CDT Office Visit [facility] [place] [address] [address] [facility] [address] [place] [phone] Luz Elena Betts MD [address] [place] [address] documented as of this encounter Visit Diagnoses Diagnosis Pre-existing type 2 diabetes mellitus during in third trimester- Primary Polyhydramnios affecting documented in this encounter Care Teams Front Office Spec Relationship Specialty Start Date End Date Tre Ba MD [facility] [address] [address] PCP - General finger buff sewer 01/15/22 Bassem Pathak MD [address] [place] [address] Assigned OBGYN Provider 08/16/23 documented as of this encounter
--- OUTSIDE RECORDS SUMMARY | 2023-09-19 16:21 | XMS_ITS | Encounter Summary ---
Author Organization [place] Address [address] [facility] [place] [address] Care Team Providers Care Pie Maker Machine Name Role Phone Tre Ba MD Primary Care Provide r Bassem Pathak MD Unavailable Reason for Referral * Diagnostic Imaging Ultrasound (Routine) - Pending Review Specialty Diagnoses / Procedures Referred By Temo taylor Referred To Contact Radiology. Diagnoses Pre-existing type 2 diabetes mellitus during in third trimester Procedures [facility] US Comprehensive Single F/U Luz Elena Betts MD [address] [place] [address] Referral ID Status Reason Start Date Expiration Date V isits Requested Visits Authorized [id number] Pending Review 09/02/2023 09/01/2024 1 1 Reason for Visit * Diagnostic Imaging Ultrasound (Routine) - Pending Review Specialty Diagnoses / Procedures Referred By Temo taylor Referred To Contact Radiology. Diagnoses Pre-existing type 2 diabetes mellitus during in third trimester Procedures [facility] US Comprehensive Single F/U Luz Elena Betts MD [address] [place] [address] Referral ID Status Reason Start Date Expiration Date V isits Requested Visits Authorized [id number] Pending Review 09/02/2023 09/01/2024 1 1 Encounter Details Date Type Department Care Team (Latest Contact Info) Description 09/15/2023 1:30 PM CDT - 09/15/2023 11:59 PM CDT Hospital Encounter [facility] Maternal Medicine Center [place] [address] [place] [phone] Mitch Jernigan MD [address] [place] [address] Pre-existing type 2 diabetes mellitus [...] Appointment [facility] Maternal Medicine [facility] [address] [place] [phone] Rachel Reyna MD [address] [place], [place] [address] 09/22/2023 12:15 PM CDT Office Visit [facility] Maternal Medicine [facility] [address] [place] [phone] Rachel Reyna MD [address] [place] [address] 09/29/2023 11:[address] [facility] Maternal Medicine [place] [address] [address] [facility] [address] [place] [phone] Luz Elena Betts MD [address] [place] [address] Lina Wu MD [address] [place] [address] 09/29/2023 12:15 PM CDT Office Visit [facility] Medicine [place] [address] [facility] [address] [place] [phone] Luz Elena Betts MD [address] [place], [place] [address] Lina Wu MD [address] [place], [place] [address] 10/06/2023 11:45 AM CDT Appointment [facility] Medicine [place] [address] [address] [facility] [address] [place] [phone] Luz Elena Betts MD [address] [place] [address] 10/06/2023 12:15 PM CDT Office Visit [facility] Maternal Medicine [place] [address] [address] [facility] [address] [place] [phone] Luz Elena Betts MD [address] [place] [address] documented as of this encounter Procedures Procedure Name Priority Date/Time Associated Diagnosis Comments [facility] US COMPREHENSIVE SINGLE F/U Routine 09/15/2023 2:12 PM CDT Pre-existing type 2 diabetes mellitus during in third trimester documented in this encounter Results * M US Comprehensive Single F/U (09/15/2023 2:12 PM CDT) Anatomical Region Laterality Modality Ultrasound 09/15/2023 1:45 [...] Pat. Name: SHEBA WILDER ? Study Date: ??09/15/2023 1:45pm Pat. NO: ??[id number] ?Referring ??MD: HOMAR MEDRANO Site: ? Typesetters Printer: Micha Gage RDMS : ??1985 ?Age: ?? [...] lb 2 ?oz EFW by ? Hadlock ([id number]) ANATOMY ----- The following structures appear normal: [...] 09/15/2023 Comp Follow Up ----- Pat. Name: SHEBA WILDER Study Date: 09/15/2023 1:45pm Pat. NO: [id number] Referring MD: HOMAR MEDRANO Site: Typesetters Printer: Micha Gage RDMS : 1985 Age: 37 [...] dating based on the LMP, selected on 436w + 3 d 10/10/2023 GENERAL EVALUATION ----- [...] EFW (lb,oz) 8 lb 2oz EFW by Hadlock([id number]) ANATOMY ----- The following structures appear normal: [...] BPP is reassuring. Luz Elena [facility]ts [facility] S documented in this encounter Visit Diagnoses Diagnosis Pre-existing type 2 diabetes mellitus during in third trimester documented in this encounter Care Teams Pie Maker Machine Relationship Specialty Start Date End Date Tre Ba MD [address] [place] [address] [address] [place], [place] [id number] PCP - General fluorescent lamp replacer 01/15/22 Bassem Pathak MD [address] 400 [place], [place] [address] Assigned OBGYN Provider 08/16/23 documented as of this encounter
--- OUTSIDE RECORDS SUMMARY | 2023-09-19 16:21 | XMS_ITS | Encounter Summary ---
Author Organization [place] Address [address] [place] [address]. [place] [address] Care Team Providers Care Paper Roll Machine Operator Name Role Phone Tre Ba MD Primary Care Provide r Bassem Pathak MD Unavailable [phone] Encounter Details Date Type Department Care Team (Late Contact Info) Description 09/16/2023 Telephone [facility] [address] [place] [phone] Cheri Peters LPN Social History Tobacco [...] Telephone Encounter - Cheri Peters LPN - 09/16/2023 10:00 AM CDT LVM reminding patient of 09/16 echo appointment at 11:00 am. documented in this encounter Plan of Treatment Upcoming Encounters Date Type Department Care Team ([facility] Contact Info) Description 09/22/2023 11:[address] [facility] Maternal Medicine Center [place] [address] [facility] [address] [place] [address] Rachel Reyna MD [address] [place] [address] 09/22/2023 12:15 PM CDT Office Visit [facility] Maternal Medicine [place] [address] [place] [address] Rachel Reyna MD [address] [place] [address] 09/29/2023 11:[address] [facility] Maternal Medicine [place] [address] [place] [address] Luz Elena Betts MD [address] [place] [address] Lina Wu MD [address] [place] [address] 09/29/2023 12:15 PM CDT Office Visit [facility] Maternal Medicine [place] [address] [place] [address] Luz Elena Betts MD [address] [place] [address] Lina Wu MD [address] [place] [address] 10/06/2023 11:[address] [facility] Maternal Medicine [place] [address] [place] [address] Luz Elena Betts MD [address] [place] [address] 10/06/2023 12:15 PM CDT Office Visit [facility] Maternal Medicine [facility] [address] [facility] [address] [place] [address] Luz Elena Betts MD [address] [place], [place] [address] documented as of this encounter Visit Diagnoses Not on filedocumented in this encounter Care Teams Paper Roll Machine Operator Relationship Specialty Start Date End Date Tre Ba MD [facility] [address] [facility] 100 [place] [address] PCP - General senior sales manager 01/15/22 Bassem Pathak MD [address] [place], [place] [address] Assigned OBGYN Provider 08/16/23 documented as of this encounter
--- OUTSIDE RECORDS SUMMARY | 2023-09-19 16:21 | XMS_ITS | Encounter Summary ---
Author Organization [place] Address [facility] [place] [address] Care Team Providers Care Twisting Operator Name Role Phone Tre Ba MD Primary Care Provide r Bassem Pathak MD Unavailable [phone] Reason for Referral * Diagnostic Imaging Ultrasound (Routine) - Pending Review Specialty Diagnoses / Procedures Referred By Temo taylor Referred To Contact Radiology. Diagnoses Pre-existing type 2 diabetes mellitus during in third trimester Procedures [facility] [address] [facility] [address] [facility] [address] [place] [address] Referral ID Status Reason Start Date Expiration Date V isits Requested Visits Authorized [id number] Pending Review 07/30/2023 07/29/2024 1 1 Reason for Visit * Diagnostic Imaging Ultrasound (Routine) - Pending Review Specialty Diagnoses / Procedures Referred By Temo taylor Referred To Contact Radiology. Diagnoses Pre-existing type 2 diabetes mellitus during in third trimester Procedures [facility] Bassem Dhillon MD [address] [place] [address] Referral ID Status Reason Start Date Expiration Date V isits Requested Visits Authorized [id number] Pending Review 07/30/2023 07/29/2024 1 1 Encounter Details Date Type Department Care Team (Latest Contact Info) Description 09/02/2023 11:45 AM CDT - 09/02/2023 11:59 PM CDT Hospital Encounter [facility] Maternal Medicine [place] [address] [place] [phone] Luz Elena Betts MD [address] [place] [address] Pre-existing type 2 diabetes mellitus [...] Info) Description 09/22/2023 11:45 AM CDT Appointment [facility] Maternal Medicine Center [place] [address] [facility] [address] [place] [phone] Rachel Reyna MD [address] [place], [place] [address] 09/22/2023 12:15 PM CDT Office Visit [facility] Maternal Medicine [place] [address] [facility] [address] [place] [phone] Rachel Reyna MD [address] [place] [address] 09/29/2023 11:45 AM CDT Appointment [facility] Maternal Medicine [place] [address] [facility] [address] [place] [phone] Luz Elena Betts MD [address] [place] [address] Lina Wu MD [address] [place] [address] 09/29/2023 12:15 PM CDT Office Visit [facility] Maternal Medicine [place] [address] [facility] [address] [place] [phone] Luz Elena Betts MD [address] [place] [address] Lina Wu MD [address] [place] [address] 10/06/2023 11:45 AM CDT Appointment [facility] Maternal Medicine [place] [address] [address] [facility] [address] [place] [phone] Luz Elena Betts MD [address] [place] [address] 10/06/2023 12:15 PM CDT Office Visit [facility] Maternal Medicine [place] [address] [facility] [address] [place] [phone] Luz Elena Betts MD [address] [place] [address] documented as of this encounter Procedures Procedure Name Priority Date/Time Associated Diagnosis Comments MFM BPP SINGLE Routine 09/02/2023 12:22 PM CDT Pre-existing type 2 diabetes mellitus during in third trimester documented in this encounter Results * [facility] BPP Single (09/02/2023 12:22 PM CDT) Anatomical Region Laterality Modality Ultrasound 09/02/2023 11:5 8 AM CDT Impressions 09/02/2023 4:11 PM CDT IMPRESSION ----- 1) Gonzalez intrauterine at 34w 4d gestational age. 2) The BPP is reassuring. 3) Mild polyhydramnios was again noted. Narrative 09/02/2023 4:11 PM CDT ?BPP ----- Pat. Name: SHEBA WILDER ? Study Date: ??09/02/2023 11:58am Pat. NO: ??[id number] ?Referring ??MD: HOMAR MEDRANO Site: ? Machine Repairman: Lashonda Barlow RDMS : ??1985 ?Age: ?? [...] surveillance with twice weekly BPP, alternating between [facility] and [facility]. Return to primary provider for continued [...] WILDER Study Date: 09/02/2023 11:58am Pat. NO: [id number] Referring MD: HOMAR MEDRANO Site: Machine Repairman: Lashonda Barlow RDMS : 1985 Age: 37 [...] Continue surveillance with twice weekly [facility], [facility]. Return to primary provider for continued [...] polyhydramnios was again noted. Bassem Pathak MD [facility] US ORDERABLE S documented in this encounter Visit Diagnoses Diagnosis Pre-existing type 2 diabetes mellitus during in third trimester documented in this encounter Care Teams Twisting Operator Relationship Specialty Start Date End Date Tre Ba MD [address] [place] [address] [facility] 100 [place], [place] [id number] PCP - General electronic components assembler 01/15/22 Bassem Pathak MD [address] [place] [address] Assigned OBGYN Provider 08/16/23 documented as of this encounter
--- OUTSIDE RECORDS SUMMARY | 2023-09-19 16:21 | XMS_ITS | Encounter Summary ---
Author Organization [place] Address [address] [facility] [place] [address] Care Team Providers Care Marine Specialist Name Role Phone Tre Ba MD Primary Care Provide r Bassem Pathak MD Unavailable [phone] Encounter Details Date Type Department Care Team [...] Description 09/22/2023 11:[address] [facility] Maternal Medicine Center [place] [address] [place] [address] Rachel Reyna MD [address] [place] [address] 09/22/2023 12:15 PM CDT Office Visit [facility] Maternal Medicine Center [place] [address] [place] [phone] Rachel Reyna MD [address] [place] [address] 09/29/2023 11:[address] [facility] Maternal Medicine [place] [address] [facility] [address] [place] [phone] Luz Elena Betts MD [address] [place] [address] Lina Wu MD [address] [place] [address] 09/29/2023 12:15 PM CDT Office Visit [facility] Maternal Medicine [place] [address] [facility] [address] [place] [phone] Luz Elena Betts MD [address] [place] [address] Lina Wu MD [address] [place] [address] 10/06/2023 11:45 AM CDT Appointment [facility] Medicine [place] [address] [facility] [address] [place] [phone] Luz Elena Betts MD [address] [place] [address] 10/06/2023 12:15 PM CDT Office Visit [facility] Maternal Medicine [place] [address] [facility] [address] [place] [phone] Luz Elena Betts MD [address] [place] [address] documented as of this encounter Visit Diagnoses Not on filedocumented in this encounter Care Teams Marine Specialist Relationship Specialty Start Date End Date Tre Ba MD [facility] [place] [address] PCP - General desizing pad operator 01/15/22 Bassem Pathak MD [address] [facility] 400 [place] [address] Assigned OBGYN Provider 08/16/23 documented as of this encounter
--- OUTSIDE RECORDS SUMMARY | 2023-09-19 16:21 | XMS_ITS | Encounter Summary ---
Author Organization [place] Address Formerly [facility], [facility] [place] [address] Care Team Providers Care Enterprise Infrastructure Architect Name Role Phone Tre Ba MD Primary Care Provide r Bassem Pathak MD Unavailable [phone] Reason for Referral * Diagnostic Imaging Ultrasound (Routine) - Pending Review Specialty Diagnoses / Procedures Referred By Contac t Referred To Contact Radiology. Diagnoses Pre-existing type 2 diabetes mellitus during in third trimester Procedures [facility] Luz Elena Qureshi MD [address] [place] [address] Referral ID Status Reason Start Date Expiration Date V isits Requested Visits Authorized [id number] Pending Review 09/02/2023 09/01/2024 1 1 * Diagnostic Imaging Ultrasound (Routine) - Pending Review Specialty Diagnoses / Procedures Referred By Contac t Referred To Contact Radiology. Diagnoses Pre-existing type 2 diabetes mellitus during in third trimester Procedures Luz Elena Steiner MD [address] [place] [address] Referral ID Status Reason Start Date Expiration Date V isits Requested Visits Authorized [id number] Pending Review 09/02/2023 09/01/2024 1 1 * Diagnostic Imaging Ultrasound (Routine) - Pending Review Specialty Diagnoses / Procedures Referred By Contac t Referred To Contact Radiology. Diagnoses Pre-existing type 2 diabetes mellitus during in third trimester Procedures [facility] BPP Single Luz Elena Betts MD [address] [place] [address] Referral ID Status Reason Start Date Expiration Date V isits Requested Visits Authorized [id number] Pending Review 09/02/2023 09/01/2024 1 1 * Diagnostic Imaging Ultrasound (Routine) - Pending Review Specialty Diagnoses / Procedures Referred By Contac t Referred To Contact Radiology. Diagnoses Pre-existing type 2 diabetes mellitus during in third trimester Procedures [facility] US Comprehensive Single F/U Luz Elena Betts MD [address] [place] [address] Referral ID Status Reason Start Date Expiration Date V isits Requested Visits Authorized [id number] Pending Review 09/02/2023 09/01/2024 1 1 Reason for Visit * Reason Comments Ultrasound BPP- GDMA2, BMI>30 Encounter Details Date Type Department Care Team (Late st Contact Info) Description 09/02/2023 12:15 PM CDT Office Visit [facility] [place] [address] [facility] [address] [place] [phone] Luz Elena Betts MD [address] [place] [address] Pre-existing type 2 diabetes mellitus [...] Info) Description 09/22/2023 11:45 AM CDT Appointment [facility]aternal Medicine [place] [address] [place] [phone] Rachel Reyna MD [address] [place] [address] 09/22/2023 12:15 PM CDT Office Visit [facility] Maternal Medicine [facility] [address] [place] [phone] Rachel Reyna MD [address] [place] [address] 09/29/2023 11:45 AM CDT Appointment [facility] M[facility] Medicine [facility] [address] [place] [address] [place] [phone] Luz Elena Betts MD [address] [place] [address] Lina Wu MD [address] [place] [address] 09/29/2023 12:15 PM CDT Office Visit [facility] Medicine [place] [address] [place] [phone] Luz Elena Betts MD [address] [place] [address] Lina Wu MD [address] [place] [address] 10/06/2023 11:45 AM CDT Appointment [facility] Medicine [place] [address] [place] [phone] Luz Elena Betts MD [address] [place] [address] 10/06/2023 12:15 PM CDT Office Visit [facility] Medicine [place] [address] [place] [phone] Luz Elena Betts MD [address] [place] [address] Scheduled Orders Name Type Priority Associated Diagnoses Orde r Schedule [facility] Single Imaging Routine Pre-existing type 2 diabetes mellitus during in third trimester Expected: 09/22/2023 (Approximate), Expires: 07/02/2024 [facility] Single Imaging Routine Pre-existing type 2 diabetes mellitus during in third trimester Expected: 09/29/2023 (Approximate), Expires: 07/02/2024 [facility] BPP Single Imaging Routine Pre-existing type 2 diabetes mellitus during in third trimester Expected: 10/06/2023 (Approximate), Expires: 07/02/2024 documented as of this encounter Results * [facility] US Comprehensive Single F/U (09/15/2023 2:12 [...] ? Study Date: ??09/15/2023 1:45pm Pat. NO: ??[id number] ?Referring ??: HOMAR MEDRANO Site: ? Product Design Specialist: Micha Gage RDMS : ??1985 ?Age: [...] lb 2 ?oz EFW by ? Hadlock ([id number]) ANATOMY ----- The following structures appear normal: [...] WILDER Study Date: 09/15/2023 1:45pm Pat. NO: [id number] Referring MD: HOMAR MEDRANO Site: Product Design Specialist: Micha Gage RDMS : 1985 Age: [...] EFW (lb,oz) 8 lb 2oz EFW by Hadlock([id number]) ANATOMY ----- The following structures appear normal: Heart / Thorax Cardiac rhythm. sex: male. BIOPHYSICAL PROFILE ----- 2: breathing movements 2: Gross body movements 2: tone 2: Amniotic fluid volume 8/ Biophysical profile score Interpretation: normal MATERNAL STRUCTURES [...] BPP is reassuring. Luz Elena Betts MD IM MF US ORDERABLE S documented in this encounter Visit Diagnoses Diagnosis Pre-existing type 2 diabetes mellitus during in third trimester- Primary Pre-existing type 2 diabetes mellitus during in third trimester documented in this encounter Care Teams Enterprise Infrastructure Architect Relationship Specialty Start Date End Date Tre Ba MD [facility] [address] [place], [place] [phone] PCP - General co founder & ceo 01/15/22 Bassem Pathak MD [address] [place], [place] [address] Assigned OBGYN Provider 08/16/23 documented as of this encounter
--- OUTSIDE RECORDS SUMMARY | 2023-09-19 16:21 | XMS_ITS | Encounter Summary ---
Author Organization [place] Address [address] [place] [address]. [place] [address] Care Team Providers Care Tube Filler Name Role Phone Tre Ba MD Primary Care Provide r Bassem Pathak MD Unavailable [phone] Encounter Details Date Type Department Care Team (Late st Contact Info) Description 08/26/2023 Telephone [facility] [address] [place] [phone] Cheri Peters LPN Social History Tobacco [...] Department Care Team (Late Contact Info) Description 09/22/2023 11:45 AM CDT Appointment [facility] [place] [address] [place] [address] Rachel Reyna MD [address] [place] [address] 09/22/2023 12:15 PM CDT Office Visit [facility] [place] [address] [place] [phone] Rachel Reyna MD [address] [place] [address] 09/29/2023 11:45 AM CDT Appointment [facility] [place] [address] [place] [phone] Luz Elena Betts MD [address] [place] [address] Lina Wu MD [address] [place] [address] 09/29/2023 12:15 PM CDT Office Visit [facility] Medicine [place] [address] [place] [phone] Luz Elena Betts MD [address] [place] [address] Lina Wu MD [address] [place], [place] [address] 10/06/2023 11:45 AM CDT Appointment [facility] Medicine [place] [address] [place] [phone] Luz Elena Betts MD [address] [place], [place] [address] 10/06/2023 12:15 PM CDT Office Visit [facility] Maternal Medicine [facility] [address] [facility] [address] [place] [phone] Luz Elena Betts MD [address] [place], [place] [phone] documented as of this encounter Visit Diagnoses Not on filedocumented in this encounter Care Teams Tube Filler Relationship Specialty Start Date End Date Tre Ba MD [facility] [address] [facility] [address] [place] [address] PCP - General python consultant 01/15/22 Bassem Pathak MD [address] [place], [place] [address] Assigned OBGYN Provider 08/16/23 documented as of this encounter
--- OUTSIDE RECORDS SUMMARY | 2023-09-19 16:21 | XMS_ITS | Encounter Summary ---
Author Organization [place] Address [address] [facility] [place] [address] Care Team Providers Care Belt Turner Name Role Phone Tre Ba MD Primary [...] Info) Description 09/22/2023 11:45 AM CDT Appointment [facility] M[facility] Medicine Center [place] [address] [facility] [address] [place] [phone] Rachel Reyna MD [address] [place], [place] [address] 09/22/2023 12:15 PM CDT Office Visit [facility] M[facility] Medicine [facility] [place] [address] [place] [phone] Rachel Reyna MD [address] [place], [place] [address] 09/29/2023 11:45 AM CDT Appointment [facility] Maternal Medicine [place] [address] [place] [phone] Luz Elena Betts MD [address] [place] [address] Lina Wu MD [address] [place] [address] 09/29/2023 12:15 PM CDT Office Visit [facility] Medicine [place] [address] [facility] [address] [place] [phone] Luz Elena Betts MD [address] [place] [address] Lina Wu MD [address] [place], [place] [address] 10/06/2023 11:45 AM CDT Appointment [facility] Medicine [place] [address] [facility] [address] [place] [phone] Luz Elena Betts MD [address] [place] [address] 10/06/2023 12:15 PM CDT Office Visit [facility] Maternal Medicine [place] [address] [facility] [address] [place] [phone] Luz Elena Betts MD [address] [place] [phone] documented as of this encounter Visit Diagnoses Not on filedocumented in this encounter Care Teams Belt Turner Relationship Specialty Start Date End Date Tre Ba MD [address] [place] [address] PCP - General dobie man 01/15/22 documented as of this encounter
--- OUTSIDE RECORDS SUMMARY | 2023-09-19 16:21 | XMS_ITS | Encounter Summary ---
Author Organization [place] Address [address] [facility] [place] [address] Care Team Providers Care Florist Manager Name Role Phone Tre Ba MD Primary Care Provide r Bassem Pathak MD Unavailable Reason for Visit * Reason Comments Ultrasound RL2/BPP-T2DM on insu mani Encounter Details Date Type Department Care Team (Late st Contact Info) Description 09/15/2023 2:00 PM CDT Office Visit [facility] Maternal Medicine Center [place] [address] [facility] [address] [place] [address] Mitch Jernigan MD [address] [place] [address] Pre-existing type 2 diabetes mellitus [...] Progress Notes * Mitch Jernigan MD - 09/15/2023 2:00 PM CDT Please see Imaging tab under Chart Review for details of today's US at the [facility]. Mitch Jernigan MD Maternal- Medicine documented in this encounter Nursing Notes * Carrie Smith, RN - 09/15/2023 2:00 PM CDT Patient presents to [facility] for RL2/BPP at 36w3d due to T2DM on insulin. Positive movement. Denies LOF, vaginal bleeding or cramping/contractions. SBAR given to [facility] , see their note in Epic. documented in this encounter Plan of Treatment Upcoming Encounters Date Type Department Care Team (Late st Contact Info) Description 09/22/2023 11:45 AM CDT Appointment [facility] Medicine [place] [address] [facility] [address] [place] [phone] Rachel Reyna MD [address] [place], [place] [address] 09/22/2023 12:15 PM CDT Office Visit [facility] Medicine [place] [address] [facility] [address] [place] [phone] Rachel Reyna MD [address] [place] [address] 09/29/2023 11:45 AM CDT Appointment [facility] Medicine [place] [address] [facility] [address] [place] [phone] Luz Elena Betts MD [address] [place], [place] [address] [phone] Lina Wu MD [address] [place] [address] 09/29/2023 12:15 PM CDT Office Visit [facility] Maternal Medicine [facility] [address] [place] [address] Luz Elena Betts MD [address] [place] [address] Lina Wu MD [address] [place] [address] 10/06/2023 11:45 AM CDT Appointment [facility] Maternal Medicine [facility] [address] [place] [phone] Luz Elena Betts MD [address] [place] [address] 10/06/2023 12:15 PM CDT Office Visit [facility] Maternal Medicine [facility] [address] [place] [phone] Luz Elena Betts MD [address] [place] [address] documented as of this encounter Visit Diagnoses Diagnosis Pre-existing type 2 diabetes mellitus during in third trimester- Primary Polyhydramnios affecting documented in this encounter Care Teams Florist Manager Relationship Specialty Start Date End Date Tre Ba MD [facility] [address] [address] PCP - General dispatch lead 01/15/22 Bassem Pathak MD [address] [place] [address] Assigned OBGYN Provider 08/16/23 documented as of this encounter
--- OUTSIDE RECORDS SUMMARY | 2023-09-19 16:21 | XMS_ITS | Encounter Summary ---
Author Organization [place] Address [address] [facility] [place] [address] Care Team Providers Care Audioprosthologist Name Role Phone Tre Ba MD Primary Care Provide r Bassem Pathak MD Unavailable Reason for Visit * Reason Comments Ultrasound BPP- T2DM on insulin , mild poly Encounter Details Date Type Department Care Team (Late st Contact Info) Description 08/25/2023 12:15 PM CDT Office Visit [facility] Maternal Medicine Center [place] [address] [facility] [address] [place] [address] Bassem Pathak MD [address] [place] [address] Luz Elena Betts MD [address] [place] [address] Pre-existing type 2 diabetes mellitus [...] Info) Description 09/22/2023 11:45 AM CDT Appointment [facility] Maternal Medicine [facility] [address] [place] [phone] Rachel Reyna MD [address] [place] [address] 09/22/2023 12:15 PM CDT Office Visit [facility] Maternal Medicine [facility] [address] [place] [phone] Rachel Reyna MD [address] [place] [address] 09/29/2023 11:45 AM CDT Appointment [facility] Maternal Medicine [facility] [address] [place] [phone] Luz Elena Betts MD [address] [place] [address] Lina Wu MD [address] [place] [address] 09/29/2023 12:15 PM CDT Office Visit [facility] Maternal Medicine [facility] [address] [place] [address] Luz Elena Betts MD [address] [place] [address] Lina Wu MD [address] [place] [address] 10/06/2023 11:45 AM CDT Appointment [facility] Medicine [facility] [address] [facility] [address] [place] [phone] Luz Elena Betts MD [address] [place] [address] 10/06/2023 12:15 PM CDT Office Visit [facility] Medicine [place] [address] [place] [phone] Luz Elena Betts MD [address] [place] [address] documented as of this encounter Visit Diagnoses Diagnosis Pre-existing type 2 diabetes mellitus during in third trimester- Primary Polyhydramnios in third trimester complication, single or unspecified fetus documented in this encounter Care Teams Audioprosthologist Relationship Specialty Start Date End Date [facility] [address] [address] PCP - General bus greaser 01/15/22 Bassem Pathak MD [address] [address] Assigned OBGYN Provider 08/16/23 documented as of this encounter
--- OUTSIDE RECORDS SUMMARY | 2023-09-19 16:21 | XMS_ITS | Encounter Summary ---
Author Organization [place] Address [address] [facility] [place] [address] Care Team Providers Care Ruby On Rails Developer Name Role Phone Tre Ba MD Primary Care Provide r Reason for Visit * Reason Comments Ultrasound BPP-uncontrolled Typ e 2 DM Encounter Details Date Type Department Care Team (Late st Contact Info) Description 08/14/2023 4:00 PM CDT Office Visit [facility] Maternal Medicine Center [place] [address] [facility] [address] [place] [address] Cristiane Patel MD [address] [place] [address] Mitch Jernigan MD [address] [place] [address] Pre-existing type 2 diabetes mellitus [...] for details of today's US at the [facility]. Mitch Jernigan MD Maternal- Medicine [...] message for educator at [facility] [place] where patient states she gets her care. Also called to primary OB clinic([facility]) at 1555 and spokewith JD Mtz. [...] was placed again to [facility] in [place]. Spoke with dynamite cartridge crimper Angelica. Patient confirmed with Angelica that she has her meal time insulin at home but is in need of her long acting insulin and has not been taking for one week as she was unable to get it at the pharmacy the day it was prescribed and was then out of town.Angelica sent in new prescription to [facility] in [place] per patient request. Plan made with patient to get insulin tonight and if unable to obtain at the pharmacy she will call the Endocrinology clinic to reach the workers compensation examiner provider to assist her in getting her insulin. Patient agreeable to plan and verbalizes understanding of the importance of managing her blood glucose levels. Angelica requested patient call in on Thursday to report glucose levels with a dynamite cartridge crimper. All patient questions answered. SBAR was done with Dr. Jernigan. documented in this encounter Plan of Treatment Upcoming Encounters Date Type Department Care Team (Late st Contact Info) Description 09/22/2023 11:45 AM CDT Appointment [facility] Maternal Medicine [place] [address] [place] [phone] Rachel Reyna MD [address] [place], [place] [address] 09/22/2023 12:15 PM CDT Office Visit [facility] Maternal Medicine [place] [address] [place] [phone] Rachel Reyna MD [address] [place], [place] [address] 09/29/2023 11:45 AM CDT Appointment [facility] Maternal Medicine [place] [address] [place] [phone] Luz Elena Betts MD [address] [place], [place] [address] Lina Wu MD [address] [place] [address] 09/29/2023 12:15 PM CDT Office Visit [facility] Maternal Medicine [place] [address] [place] [phone] Luz Elena Betts MD [address] [place] [address] Lina Wu MD [address] [place], [place] [address] [phone] 10/06/2023 11:45 AM CDT Appointment [facility] Maternal Medicine [facility] [address] [place] [phone] Luz Elena Betts MD [address] [place], [place] [address] 10/06/2023 12:15 PM CDT Office Visit [facility] Maternal Medicine [facility] [address] [place] [phone] Luz Elena Betts MD [address] [place], [place] [phone] documented as of this encounter Visit Diagnoses Diagnosis Pre-existing type 2 diabetes mellitus during in third trimester- Primary Polyhydramnios affecting documented in this encounter Care Teams Ruby On Rails Developer Relationship Specialty Start Date End Date Tre Ba MD [address] [facility] [address] [place], [place] [phone] PCP - General line erector 01/15/22 documented as of this encounter
--- OUTSIDE RECORDS SUMMARY | 2023-09-19 16:22 | XMS_ITS | Encounter Summary ---
Author Organization [place] Address [facility] [place] [address] Care Team Providers Care Admitting Manager Name Role Phone Tre Ba MD Primary Care Provide r Reason for Referral * Diagnostic Imaging Ultrasound (Routine) - Pending Review Specialty Diagnoses / Procedures Referred By Temo taylor Referred To Contact Radiology. Diagnoses related condition, antepartum Procedures [facility] US Comprehensive Single Ilene Medrano APRN CNP [facility] [address] [place] [address] Referral ID Status Reason Start Date Expiration Date V isits Requested Visits Authorized [id number] Pending Review 07/03/2023 07/02/2024 1 1 Reason for Visit * Diagnostic Imaging Ultrasound (Routine) - Pending Review Specialty Diagnoses / Procedures Referred By Temo taylor Referred To Contact Radiology. Diagnoses related condition, antepartum Procedures [facility] US Comprehensive Single Ilene Medrano APRN [facility] [address] [place] [address] Referral ID Status Reason Start Date Expiration Date V isits Requested Visits Authorized [id number] Pending Review 07/03/2023 07/02/2024 1 1 Encounter Details Date Type Department Care Team (Latest Contact Info) Description 07/24/2023 12:50 PM CDT - 07/24/2023 11:59 PM CDT Hospital Encounter [facility] Maternal Medicine [facility] [place] Bean [address] [facility] [address] [place] [address] Cristiane Patel MD [address] [place], [place] [phone] related condition, antepartum Discharge Disposition: Home or [...] Appointment [facility] [place] [address] [facility] [facility] [address] [place] [phone] Rachel Reyna MD [address] [place] [address] 09/22/2023 12:15 PM CDT Office Visit [facility] Tom Bean [address] [place] [phone] Rachel Reyna MD [address] [place], [place] [address] 09/29/2023 11:45 AM CDT Appointment [facility] Maternal Medicine [place] [address] [place] [address] Luz Elena Betts MD [address] [place] [address] Lina Wu MD [address] [place] [address] 09/29/2023 12:15 PM CDT Office Visit [facility] Maternal Medicine [place] [address] [place] [phone] Luz Elena Betts MD [address] [place], [place] [address] Lina Wu MD [address] [place], [place] [address] 10/06/2023 11:45 AM CDT Appointment [facility] [place] [address] [place] [phone] Luz Elena Betts MD [address] [place] [phone] 10/06/2023 12:15 PM CDT Office Visit [facility] Maternal Medicine [place] [address] [place] [phone] Luz Elena Betts MD [address] [place] [phone] documented as of this encounter Procedures Procedure Name Priority Date/Time Associated Diagnosis Comments [facility] COMPREHENSIVE SINGLE Routine 07/24/2023 2:13 PM CDT related condition, antepartum documented in this encounter Results * M US Comprehensive Single (07/24/2023 2:13 PM CDT) [...] ? Study Date: ??07/24/2023 1:32pm Pat. NO: ??[id number] ?Referring ??MD: ILENE MEDRANO Site: ??[facility] ? Chief Substation Operator: Sujatha Joyce RDMS : ??1985 ?Age: ?? 37 ----- INDICATION ----- Advanced Maternal Age. Type 2 diabetes. History of Gestational Hypertension. METHOD ----- Transabdominal ultrasound examination. View: Sufficient ----- Ognzalez . Number of fetuses: 1 DATING ----- [...] 3 lb 10 ?oz EFW by ?Hadlock ([id number]) Head / Face / Neck Biometry: Cow Washer ? 3.6 ? mm CM ?5.7 ? [...] cava. Inferior vena cava. 3-vessel ? view. 4-idfasu-ftlququ view. Cardiac position. Cardiac size. Cardiac rhythm. [...] movements 2: tone 2: Amniotic fluid volume / Biophysical profile score RECOMMENDATION ----- Thank-you for [...] are between 220-240. She is following a visual educator and has met with a land survey technician. No one has started her on insulin [...] and communicating with other health urgent care physician assistant and/or care coordination. Please see note for details. Procedure Note Cristiane Patel MD - 07/24/2023 Comprehensive ----- Pat. Name: SHEBA WILDER Study Date: 07/24/2023 1:32pm Pat. NO: [id number] Referring MD: ILENE MEDRANO Site: [facility] Chief Substation Operator: Sujatha Joyce RDMS : 1985 Age: 37 [...] 3 lb 10 oz EFW by Hadlock ([id number]) Head / Face / Neck Biometry: Cow Washer 3.6 mm CM 5.7 mm Nasal bone [...] Superior venacava. Inferior vena cava. 3-vessel view. 5-hlaenf-kqhigab view.Cardiac position. Cardiac size. Cardiac rhythm. Right [...] a diabetic educatorand has met with a land survey technician. No one has started her on insulin [...] record, andcommunicating with other health urgent care physician assistant and/or carecoordination. Please see note for [...] and closed. 6. The BPP was 8/8. Ilene Medrano APRN RIGHT OF WAY CUTTER IMG MFM US ORDERABLES documented in this encounter Visit Diagnoses Diagnosis related condition, antepartum documented in this encounter Care Teams Admitting Manager Relationship Specialty Start Date End Date Tre Ba MD [facility]5 TERRY JOHNSON [address] [place] [id number] PCP - General director pharmaceutical 01/15/22 documented as of this encounter
--- OUTSIDE RECORDS SUMMARY | 2023-09-19 16:22 | XMS_ITS | Encounter Summary ---
Author Organization [employer] Address [facility] [place] [address] Care Team Providers Care Risk And Compliance Analytics Director Name Role Phone Ter Ba MD Primary Care Provide r Reason for Referral * Diagnostic Imaging Ultrasound (Routine) - Pending Review Specialty Diagnoses / Procedures Referred By Contac t Referred To Contact Radiology. Diagnoses Pre-existing type 2 diabetes mellitus during in third trimester Procedures [facility] Bassem Dhillon MD [address] [address] Referral ID Status Reason Start Date Expiration Date V isits Requested Visits Authorized [id number] Pending Review 07/30/2023 07/29/2024 1 1 * Diagnostic Imaging Ultrasound (Routine) - Pending Review Specialty Diagnoses / Procedures Referred By Contac t Referred To Contact Radiology. Diagnoses Pre-existing type 2 diabetes mellitus during in third trimester Procedures Bassem Ackerman MD [address] [address] Referral ID Status Reason Start Date Expiration Date V isits Requested Visits Authorized [id number] Pending Review 07/30/2023 07/29/2024 1 1 * Diagnostic Imaging Ultrasound (Routine) - Pending Review Specialty Diagnoses / Procedures Referred By Contac t Referred To Contact Radiology. Diagnoses Pre-existing type 2 diabetes mellitus during in third trimester Procedures [facility] Bassem Dhillon MD [address] [place] [address] Referral ID Status Reason Start Date Expiration Date V isits Requested Visits Authorized [id number] Pending Review 07/30/2023 07/29/2024 1 1 Reason for Visit * Reason Comments Ultrasound BPP: DM2 - poorly co ntrolled Encounter Details Date Type Department Care Team (Late st Contact Info) Description 07/30/2023 4:00 PM CDT Office Visit [facility] Maternal Medicine Center [address] [place] [address] Bassem Pathak MD [address] [place], [place] [phone] Pre-existing type 2 diabetes mellitus during in [...] 07/30/2023 4:00 PM CDT Patient presents to [facility] for BPP at 29w5d due to DM2 - poorly controlled. Positive movement. Denies LOF, vaginal bleeding or cramping/contractions. SBAR given to TREVOR GRESHAM, see their note in Epic. documented in this encounter Plan of Treatment Upcoming Encounters Date Type Department Care Team (Late st Contact Info) Description 09/22/2023 11:45 AM CDT Appointment [facility] Maternal Medicine [place] [address] [facility] [address] [place] [phone] Rachel Reyna MD [address] [place], [place] [address] 09/22/2023 12:15 PM CDT Office Visit [facility] Maternal Medicine [place] [address] [facility] [address] [place] [phone] Rachel Reyna MD [address] [place], [place] [phone] 09/29/2023 11:45 AM CDT Appointment [facility] Maternal Medicine [place] [address] [place] [phone] Luz Elena Betts MD [address] [place], [place] [address] [phone] Lina Wu MD [address] [place], [place] [address] [phone] 09/29/2023 12:15 PM CDT Office Visit [facility] Maternal Medicine [place] [address] [place] [phone] Luz Elena Betts MD [address] [place], [place] [phone] Lina Wu MD [address] [place] [address] 10/06/2023 11:45 AM CDT Appointment [facility] Maternal Medicine [facility] [address] [place] [address] Luz Elena Betts MD [address] [place] [address] 10/06/2023 12:15 PM CDT Office Visit [facility] Maternal Medicine [facility] [address] [place] [address] Luz Elena Betts MD [address] [place] [address] documented as of this encounter Results * M BPP Single (09/08/2023 12:22 PM CDT) Anatomical Region Laterality Modality Ultrasound 09/08/2023 12:0 1 PM CDT Impressions 09/08/2023 12:24 PM CDT IMPRESSION ----- 1) Mild polyhydramnios. 2) BPP is reassuring. Narrative 09/08/2023 12:24 PM CDT ?BPP ----- Pat. Name: JACK EDWARDS ? Study Date: ??09/08/2023 12:01pm Pat. NO: ??[id number] ?Referring ??MD: HOMAR MEDRANO Site: ? Head Of Sales Promotion: Gemma Pinzon [facility] : ??1985 ?Age: ?? 37 ----- INDICATION [...] BPP at your office weekly and at [facility] weekly. Return to primary provider for [...] EDWARDS Study Date: 09/08/2023 12:01pm Pat. NO: [id number] Referring MD: HOMAR MEDRANO Site: Head Of Sales Promotion: Gemma Pinzon RDMS : 1985 Age: 37 [...] [facility] your office weekly [facility] Return to primary provider for continued care. Thank-you for the opportunity to participate in the care of this patient.If you have questions regarding today's evaluation or if we can be offurther service, please contact the Maternal- Medicine Center. anomalies may be present but not detected IMPRESSION ----- 1) Mild polyhydramnios. 2) BPP is reassuring. Bassem Pathak MD [facility] US ORDERABLE S [facility] BPP Single (09/02/2023 12:22 PM CDT) Anatomical Region Laterality Modality Ultrasound 09/02/2023 11:5 8 AM CDT Impressions 09/02/2023 4:11 PM CDT IMPRESSION ----- 1) Gonzalez intrauterine at 34w 4d gestational age. 2) The BPP is reassuring. 3) Mild polyhydramnios was again noted. Narrative 09/02/2023 4:11 PM CDT ?BPP ----- Pat. Name: JACK EDWARDS ? Study Date: ??09/02/2023 11:58am Pat. NO: ??[id number] ?Referring ??MD: HOMAR MEDRANO Site: ? Head Of Sales Promotion: Lashonda Barlow RDMS : ??1985 ?Age: ?? [...] with twice weekly BPP, alternating between [facility] and [facility]. Return to primary provider for [...] EDWARDS Study Date: 09/02/2023 11:58am Pat. NO: [id number] Referring MD: HOMAR MEDRANO Site: Head Of Sales Promotion: Lashonda Barlow RDMS : 1985 Age: 37 [...] movements 2: tone 2: Amniotic fluid volume 88 Biophysical profile score Interpretation: normal RECOMMENDATION ----- We discussed the findings on today's ultrasound with the patient. Continue surveillance with twice weekly [facility]. Return to primary provider for [...] polyhydramnios was again noted. Bassem Pathak MD [facility] US SUMMER [facility] BPP Single (08/25/2023 12:05 PM CDT) Anatomical Region Laterality Modality Ultrasound 08/25/2023 11:4 8 AM CDT Impressions 08/25/2023 1:03 PM CDT IMPRESSION ----- 1) Gonzalez intrauterine at 33w 3d gestational age. 2) The BPP is reassuring. 3) Mild polyhydramnios is noted. Narrative 08/25/2023 1:03 PM CDT ?BPP ----- Pat. Name: JACK EDWARDS ? Study Date: ??08/25/2023 11:48am Pat. NO: ??[id number] ?Referring ??MD: HOMAR MEDRANO Site: ? Head Of Sales Promotion: Micha Gage RDMS : ??1985 ?Age: ?? [...] with twice weekly BPP, alternating between [facility] and [facility]. Return to primary provider for [...] EDWARDS Study Date: 08/25/2023 11:48am Pat. NO: [id number] Referring MD: HOMAR MEDRANO Site: Head Of Sales Promotion: Micha Gage RDMS : 1985 Age: 37 [...] surveillance with twice weekly [facility], [facility]. Return to primary provider for [...] Mild polyhydramnios is noted. Bassem Pathak [facility] S documented in this encounter Visit Diagnoses Diagnosis Pre-existing type 2 diabetes mellitus during in third trimester- Primary Pre-existing type 2 diabetes mellitus during in third trimester Pre-existing type 2 diabetes mellitus during in third trimester Pre-existing type 2 diabetes mellitus during in third trimester documented in this encounter Care Teams Risk And Compliance Analytics Director Relationship Specialty Start Date End Date Tre Ba MD [facility]5 TERRY PONCE [address] [address] PCP - General information systems manager 01/15/22 documented as of this encounter
--- OUTSIDE RECORDS SUMMARY | 2023-09-19 16:22 | XMS_ITS | Encounter Summary ---
Author Organization [place] Address [address] [place] [address] Care Team Providers Care Hydrological Technical Officer Name Role Phone Tre Ba MD Primary Care Provide r Reason for Visit * Reason Onset Date Comments Results 08/03/2023 Low Risk Expande d NIPT Encounter Details Date Type Department Care Team (Late Contact Info) Description 08/03/2023 Telephone [facility] Maternal Medicine Center [address] [place] [address] Laura Abdi GC [address] [place], [place] [address]E [facility] [address] [place] [address] Results (Low Risk Expanded NIPT) [...] Info) Description 09/22/2023 11:45 AM CDT Appointment [facility] Maternal Medicine Center [place] [address] [place] [address] Rachel Reyna MD [address] [place], [place] [address]E [facility] [address] [place] [address] 09/22/2023 12:15 PM CDT Office Visit [facility] Maternal Medicine Center [place] [address] [place] [phone] Rachel Reyna MD [address] [place] [address] 09/29/2023 11:45 AM CDT Appointment [facility] Maternal Medicine [place] [address] [place] [phone] Luz Elena Betts MD [address] [place] [address] Lina Wu MD [address] [place] [address] 09/29/2023 12:15 PM CDT Office Visit [facility] Maternal Medicine [place] [address] [place] [phone] Luz Elena Betts MD [address] [place] [address] Lina Wu MD [address] [place] [address] 10/06/2023 11:45 AM CDT Appointment [facility] Maternal Medicine [place] [address] [place] [phone] Luz Elena Betts MD [address] [place] [address] 10/06/2023 12:15 PM CDT Office Visit [facility] Medicine [facility] [place] [address] [facility] [address] [place] [address] Luz Elena Betts MD [address] [place] [address] [address] [place], [place] [address] documented as of this encounter Visit Diagnoses Not on filedocumented in this encounter Care Teams Hydrological Technical Officer Relationship Specialty Start Date End Date Tre [facility] MD [facility] [address] [facility] [address] [place] [address] PCP - General credit cashier 01/15/22 documented as of this encounter
--- OUTSIDE RECORDS SUMMARY | 2023-09-19 16:22 | XMS_ITS | Encounter Summary ---
Author Organization [place] Address [address] [place] [address] Care Team Providers Care Dust Mill Operator Name Role Phone Tre Ba MD Primary Care Provide r Reason for Referral * Consultation (Routine: Next available opening) - Pending Review Specialty Diagnoses / Procedures Referred By Contac t Referred To Contact Diagnoses related condition, antepartum Ilene Kaplan APRN CNP [facility] [address] [place] [address] Referral ID Status Reason Start Date Expiration Date V isits Requested Visits Authorized [id number] Pending Review 07/03/2023 07/02/2024 1 1 Comments AMA * Diagnostic Imaging Ultrasound (Routine) - Pending Review Specialty Diagnoses / Procedures Referred By Contac t Referred To Contact Radiology. Diagnoses related condition, antepartum Procedures [facility] US Comprehensive Single Ilene Kaplan APRN CNP [facility] [address] [place] [address] Referral ID Status Reason Start Date Expiration Date V isits Requested Visits Authorized [id number] Pending Review 07/03/2023 07/02/2024 1 1 * Consultation (Routine: Next available opening) - Pending Review Specialty Diagnoses / Procedures Referred By Contac t Referred To Contact Diagnoses related condition, antepartum Ilene Kaplan APRN CNP [facility] [address] [place] [address] Rh Maternal Med [address] [facility] [address] [place] [address] Referral ID Status Reason Start Date Expiration Date V isits Requested Visits Authorized [id number] Pending Review 07/03/2023 07/02/2024 1 1 Question Answer Preferred Location: [facility] [place] 10/10/2023 Ultrasound Complete US (14-17.6 weeks GA) US PROC NONE MFM Issue Advanced Maternal Age *MUST request Genetic Counseling MFM MD Consultation (unrelated to Ultrasound findings): No Inflammatory Bowel Disease Clinic: Joint MFM and GI Consultation: No Chronic Kidney Disease: Joint MFM and Nephrology Consultation No Genetic Counseling Consultation: Yes fax Ilene Kaplan [facility], Comments There is no height or [...] st Contact Info) Description 07/03/[address] [facility] Maternal Medicine [facility] [place] [address] [facility] [address] [place] [address] Ilene Kaplan APRN CNP [facility] [address] [place] [address] related condition, antepartum (Primary Dx) Social History [...] Info) Description 09/22/2023 11:45 AM CDT Appointment [facility] Medicine [place] [address] [place] [phone] Rachel Reyna MD [address] [place], [place] [address] 09/22/2023 12:15 PM CDT Office Visit [facility] Medicine [place] [address] [facility] [address] [place] [phone] Rachel Reyna MD [address] [place], [place] [phone] 09/29/2023 11:45 AM CDT Appointment [facility] Medicine [place] [address] [place] [phone] Luz Elena Betts MD [address] [place], [place] [phone] Lina Wu MD [address] [place], [place] [phone] 09/29/2023 12:15 PM CDT Office Visit [facility] Medicine [place] [address] [place] [phone] Luz Elena Betts MD [address] [place], [place] [address] Lina Wu MD [address] [place] [address] 10/06/2023 11:[address] [facility] Maternal Medicine [facility] [place] [address] [place] [phone] Luz Elena Betts MD [address] [place], [place] [address] 10/06/2023 12:15 PM CDT Office Visit [facility] Maternal Medicine [facility] [address] [place] [phone] Luz Elena Betts MD [address] [place] [address] Scheduled Referrals Name Type Priority Associated Diagnoses Orde r Schedule Mat Med Ctr Referral - Referral Routine: Next available opening related condition, antepartum Expected: 07/03/2023 (Approximate), Expires: 12/30/2023 [facility] Genetic Counseling Referral Routine: Next available opening related condition, antepartum Expected: 07/03/2023 (Approximate), Expires: 07/02/2024 documented as of this encounter Results * [facility] US Comprehensive Single (07/24/2023 2:13 PM [...] 4. There is mild polyhydramnios with an LAEX of 24.8cm. 5. On transabdominal imaging the cervix appeared long and closed. 6. The BPP was 88. Narrative 07/24/2023 4:30 PM CDT ?Comprehensive ----- Pat. Name: GRACESHEBA Wall ? Study Date: ??07/24/2023 1:32pm Pat. NO: ??[id number] ?Referring ??MD: ILENE KAPLAN Site: ??[facility] ? Blast Furnace Operator: Sujatha Joyce RDMS : ??1985 ?Age: [...] 3 lb 10 ?oz EFW by ?Hadlock ([id number]) Head / Face / Neck Biometry: Community Development Aide ? 3.6 ? mm CM ?5.7 ? [...] cava. Inferior vena cava. 3-vessel ? view. 6-udbccw-rrtuzkr view. Cardiac position. Cardiac size. Cardiac rhythm. [...] are between 220-240. She is following a development educator and has met with a cheese cook. No one has started her on insulin [...] record, and communicating with other health healthcare translator and/or care coordination. Please see note for details. Procedure Note Cristiane Patel MD - 07/24/2023 Comprehensive ----- Pat. Name: SHEBA WILDER Study Date: 07/24/2023 1:32pm Pat. NO: [id number] Referring MD: ILENE KAPLAN Site: [facility] Blast Furnace Operator: Sujatha Joyce RDMS : 1985 Age: [...] 3 lb 10 oz EFW by Hadlock ([id number]) Head / Face / Neck Biometry: Community Development Aide 3.6 mm CM 5.7 mm Nasal bone [...] Superior venacava. Inferior vena cava. 3-vessel view. 6-pimjgr-khxjhuc view.Cardiac position. Cardiac size. Cardiac rhythm. Right [...] a diabetic educatorand has met with a cheese cook. No one has started her on insulin [...] medical record, andcommunicating with other health healthcare translator and/or carecoordination. Please see note for details. [...] and closed. 6. The BPP was 09/30. Ilene Kaplan APRN SOCIAL WORK ADMINISTRATOR IMG M US ORDERABLES documented in this encounter Visit Diagnoses Diagnosis related condition, antepartum- Primary related condition, antepartum documented in this encounter Care Teams Dust Mill Operator Relationship Specialty Start Date End Date Tre [facility] [address] [address] PCP - General chief engineer research 01/15/22 documented as of this encounter
--- OUTSIDE RECORDS SUMMARY | 2023-09-19 16:22 | XMS_ITS | Encounter Summary ---
Author Organization [place] Address [address] [facility] [address] Care Team Providers Care Agriculture Consultant Name Role Phone Tre Ba MD Primary Care Provide r Encounter Details Date Type Department Care Team (Late st Contact Info) Description 07/24/2023 Medical Correspondence [facility] [address] [place] [address] Scan, Non-Provider Social History Tobacco [...] Info) Description 09/22/2023 11:45 AM CDT Appointment [facility] Maternal Medicine Center [place] [address] [place] [address] Rachel Reyna MD [address] [facility] [address] [place], [place] [address] 09/22/2023 12:15 PM CDT Office Visit [facility] [place] [address] [place] [address] Rachel Reyna MD [address] [place] [address] 09/29/2023 11:45 AM CDT Appointment [facility] Maternal Medicine [place] [address] [place] [address] Luz Elena Betts MD [address] [place] [address] Lina Wu MD [address] [place] [address] 09/29/2023 12:15 PM CDT Office Visit [facility] Maternal Medicine [place] [address] [place] [phone] Luz Elena Betts MD [address] [place] [address] Lina Wu MD [address] [place] [address] 10/06/2023 11:45 AM CDT Appointment [facility] Maternal Medicine [place] [address] [place] [phone] Luz Elena Betts MD [address] [place] [address] 10/06/2023 12:15 PM CDT Office Visit [facility] Maternal Medicine [place] [address] [place] [phone] Luz Elena Betts MD [address] [place] [address] documented as of this encounter Visit Diagnoses Not on filedocumented in this encounter Care Teams Agriculture Consultant Relationship Specialty Start Date End Date Tre Ba MD [facility] [address] PCP - General academic intern 01/15/22 documented as of this encounter
--- OUTSIDE RECORDS SUMMARY | 2023-09-19 16:22 | XMS_ITS | Encounter Summary ---
Author Organization [place] Address [address] [place] [address]. [place] [address] Care Team Providers Care Venereal Disease Investigator Name Role Phone Tre Ba MD Primary Care Provide r Reason for Referral * (Routine) - Authorized Specialty Diagnoses / Procedures [facility] Referred To Contact Cardiology Diagnoses with type 2 diabetes mellitus in third trimester Procedures Echo (TTE) Complete Cristiane Patel MD [address] [place] [address] [facility] [address] [place] [phone] Referral ID Status Reason Start Date Expiration Date V isits Requested Visits Authorized [id number] Authorized 07/24/2023 07/23/2024 1 1 * Diagnostic Imaging Ultrasound (Routine) - Pending Review Specialty Diagnoses / Procedures Referred By Contac t Referred To Contact Radiology. Diagnoses Diabetes mellitus, type 2 (H) Polyhydramnios affecting Procedures MFM US Comprehensive Single F/U Cristiane Patel MD [address] [place] [address] Referral ID Status Reason Start Date Expiration Date V isits Requested Visits Authorized [id number] Pending Review 07/24/2023 07/23/2024 1 1 * Diagnostic Imaging Ultrasound (Routine) - Pending Review Specialty Diagnoses / Procedures Referred By Contac t Referred To Contact Radiology. Diagnoses Diabetes mellitus, type 2 (H) Polyhydramnios affecting Procedures [facility] Cristiane Rubin MD [address] [place] [address] Referral ID Status Reason Start Date Expiration Date V isits Requested Visits Authorized [id number] Pending Review 07/24/2023 07/23/2024 1 1 * Diagnostic Imaging Ultrasound (Routine) - Pending Review Specialty Diagnoses / Procedures Referred By Contac t Referred To Contact Radiology. Diagnoses Diabetes mellitus, type 2 (H) Polyhydramnios affecting Procedures [facility] Cristiane Rubin MD [address] [place] [address] Referral ID Status Reason Start Date Expiration Date V isits Requested Visits Authorized [id number] Pending Review 07/24/2023 07/23/2024 1 1 Reason for Visit * Reason Comments Ultrasound L2- AMA, T2DM Encounter Details Date Type Department Care Team (Late st Contact Info) Description 07/24/2023 2:00 PM CDT Office Visit [facility] Maternal Medicine Center [place] [address] [facility] [address] [place] [address] Cristiane Patel MD [address] [place] [address] with type 2 diabetes mellitus in [...] in the Maternal- Medicine Center at the [facility] today. For a detailed report of the ultrasound examination, please see the ultrasound report which can be found under the imaging tab. If you have questions regarding today's evaluation or if we can be of further service, please contact the Maternal- Medicine Center. Cristiane Patel MD Pediatric Neurologist, HYPERCIL CORE TRANSFORMER ASSEMBLER Maternal- Medicine [phone] (Pager) documented in this encounter Nursing Notes * Katina Espinoza RN - 07/24/2023 2:00 PM CDT Patient reports positive movement, no pain, no contractions, leaking of fluid, or bleeding. Reports blood sugar values elevated- fasting this morning was 175 reports after meals often 220. Has appointment in [place] next week to discuss starting insulin. Patient denies headache, visual changes, nausea/vomiting, epigastric pain related to preeclampsia. SBAR given to TREVOR GRESHAM, see their note in Epic. documented in this encounter Plan of Treatment Upcoming Encounters Date Type Department Care Team (Late st Contact Info) Description 09/22/2023 11:45 AM CDT Appointment [facility] Maternal Medicine [facility] [address] [place] [address] Rachel Reyna MD [address] [place] [address] 09/22/2023 12:15 PM CDT Office Visit [facility] Maternal Medicine [facility] [address] [place] [address] Rachel Reyna MD [address] [place] [address] 09/29/2023 11:45 AM CDT Appointment [facility] Maternal Medicine Center [place] [address] [place] [address] Luz Elena Betts MD [address] [place] [address] Lina Wu MD [address] [place] [address] 09/29/2023 12:15 PM CDT Office Visit [facility] Maternal Medicine [place] [address] [place] [phone] Luz Elena Betts MD [address] [place] [address] Lina Wu MD [address] [place] [address] 10/06/2023 11:45 AM CDT Appointment [facility] Maternal Medicine [place] [address] [place] [phone] Luz Elena Betts MD [address] [place] [address] 10/06/2023 12:15 PM CDT Office Visit [facility] Maternal Medicine [place] [address] [place] [phone] Luz Elena Betts MD [address] [place] [address] Scheduled Orders Name Type Priority Associated Diagnoses Orde r Schedule Echo (TTE) Complete Echocardiography Routine with type 2 diabetes mellitus in third trimester Expected: 08/07/2023 (Approximate), Expires: 07/23/2024 documented as of this encounter Results * [facility] [...] ? Study Date: ??08/21/2023 11:58am Pat. NO: ??[id number] ?Referring ??MD: HOMAR MEDRANO Site: ? Animal Behaviourist: Yamila Dutton RDMS : ??1985 ?Age: ?? [...] lb 4 ?oz EFW by ? Hadlock ([id number]) Head / Face / Neck Biometry: Cardroom Plastic Card Grader ?4.4 ? mm ANATOMY ----- The following [...] Heart / Thorax ?RVOT view. LVOT view. 2-apjvhc-klrbqux view. Spine ?Cervical spine. sex: male. MATERNAL [...] EDWARDS Study Date: 08/21/2023 11:58am Pat. NO: [id number] Referring MD: HOMAR MEDRANO Site: Animal Behaviourist: Yamila Dutton RDMS : 1985 Age: 37 [...] EFW (lb,oz) 6 lb 4oz EFW by Hadlock([id number]) Head / Face / Neck Biometry: Cardroom Plastic Card Grader 4.4mm ANATOMY ----- The following structures appear normal: Head / Neck Cranium. Head size. Head shape.Lateral ventricles. Midline falx. Cavum septi pellucidi. Cerebellum.Cisterna magna. Thalami. Face Profile. Heart / Thorax 4-chamber view. Diaphragm. Abdomen Stomach. Kidneys. Bladder. Spine Thoracic spine. Lumbar spine.Sacral spine. The following structures were documented previously: Face Lips. Nose. Heart / Thorax RVOT view. LVOT view. 8-ajwmyy-lkvskagmkon. Spine Cervical spine. sex: male. MATERNAL STRUCTURES [...] 5. BPP is reassuring. Cristiane Patel MD [facility] US ORDERABLE S [facility] BPP Single (08/14/2023 3:54 PM CDT) Anatomical Region Laterality Modality Ultrasound 08/14/2023 3:35 PM CDT Impressions 08/14/2023 4:06 PM CDT IMPRESSION ----- 1) Mild polyhydramnios. 2) BPP is reassuring. Narrative 08/14/2023 4:06 PM CDT ?BPP ----- Pat. Name: JACK EDWARDS ? Study Date: ??08/14/2023 3:35pm Pat. NO: ??[id number] ?Referring ??MD: HOMAR MEDRANO Site: ? Animal Behaviourist: Gemma Pinzon [facility] : ??1985 ?Age: ?? 37 ----- [...] has not contacted your office or her tombstone polisher. Currently we are not reviewing her blood [...] EDWARDS Study Date: 08/14/2023 3:35pm Pat. NO: [id number] Referring MD: HOMAR MEDRANO Site: Animal Behaviourist: Gemma Pinzon RDMS : 1985 Age: 37 [...] and has notcontacted your office or her tombstone polisher. Currently we are not reviewing her blood [...] Mild polyhydramnios. 2) BPP is reassuring. Cristiane CABRAL [facility] US ABELABLE S * [facility] BPP Single (07/30/2023 3:46 PM CDT) [...] 4:06 PM CDT ?BPP ----- Pat. Name: GRACE JACK ? Study Date: ??07/30/2023 3:27pm Pat. NO: ??[id number] ?Referring ??MD: HOMAR MEDRANO Site: ??[place] ? Animal Behaviourist: Lashonda Barlow RDMS : ??1985 ?Age: ?? [...] with MFM and once with PCP in [place]. Recommend delivery for GDM A2 and pregestational: ? Well controlled: 77x4y-75w5b ? Poorly controlled: 38a7a-39v6k ? Failed in-hospital attempt at control: 42e4j-72b2f Thank you for the opportunity to participate in the care of this patient. If you have questions regarding today's evaluation or if we can be of further service, please contact the Maternal- Medicine Center. anomalies may be present but not detected Procedure Note Bassem Pathak MD - 07/30/2023 BPP ----- Pat. Name: JACK EDWARDS Study Date: 07/30/2023 3:27pm Pat. NO: [id number] Referring MD: HOMAR MEDRANO Site: [facility] Animal Behaviourist: Lashonda Barlow RDMS : 1985 Age: 37 ----- INDICATION ----- Advanced maternal age. Type 2 diabetes - on insulin History of gestational hypertension. Mild polyhydramnios. METHOD ----- Transabdominal ultrasound examination. View: Sufficient ----- Gonzalez . Number of fetuses: 1 DATING ----- DateDetailsGest. age BROOKE LMP 329 w + 5 d 10/10/2023 Prior assessment [...] here with MFM and once withPCP in [place]. Recommend delivery for GDM A2 and pregestational: ? Well controlled: 60e5f-64n6q ? Poorly controlled: 68z8c-37u9h ? Failed in-hospital attempt at control: 87k6g-30i4k Thank you for the opportunity to participate [...] affecting documented in this encounter Care Teams Venereal Disease Investigator Relationship Specialty Start Date End Date Tre Ba MD [address] [address] PCP - General brigadier 01/15/22 documented as of this encounter
--- OUTSIDE RECORDS SUMMARY | 2023-09-19 16:22 | XMS_ITS | Encounter Summary ---
Author Organization [place] Address [address] [place] [address] Care Team Providers Care Building Services Supervisor Name Role Phone Tre Ba MD Primary Care Provide r Encounter Details Date Type Department Care Team (Late st Contact Info) Description 07/24/2023 2:40 PM CDT Lab [facility] [address] [place] [address] Cristiane Patel MD [address] [place] [address] Multigravida of advanced maternal age [...] Info) Description 09/22/2023 11:45 AM CDT Appointment [facility] Maternal Medicine Center [place] [address] [facility] [address] [place] [address] Rachel Reyna MD [address] [place], [place] [address] 09/22/2023 12:15 PM CDT Office Visit [facility] Maternal Medicine Center [place] [address] [place] [phone] Rachel Ryena MD [address] [place] [address] 09/29/2023 11:45 AM CDT Appointment [facility] Maternal Medicine [place] [address] [place] [phone] Luz Elena Betts MD [address] [place], [place] [address] Lina Wu MD [address] [place] [address] 09/29/2023 12:15 PM CDT Office Visit [facility] Maternal Medicine [place] [address] [place] [phone] Luz Elena Betts MD [address] [place] [address] Lina Wu MD [address] [place] [address] 10/06/2023 11:45 AM CDT Appointment [facility] Maternal Medicine [place] [address] [place] [phone] Luz Elena Betts MD [address] [place] [address] 10/06/2023 12:15 PM CDT Office Visit [facility] Maternal Medicine [place] [address] [place] [phone] Luz Elena Betts MD [address] [facility] [address] [place] [address] documented as of this encounter Procedures Procedure Name Priority Date/Time Associated Diagnosis Comments Coinsetter NON-INVASIVE SCREENING PREQUEL Routine 07/24/2023 2:49 PM CDT Multigravida of advanced maternal age in third trimester documented in this encounter Results * [facility] Non-Invasive Screening???Prequel (07/24/2023 2:49 PM CDT) See Scanned Result Coinsetter NON-INVASIVE SCREENING PREQUEL-Scann ed 08/02/2023 7:16 PM CDT [facility] Blood STRUCTURE OF RIGHT UPPER LIMB / Unknown Venipuncture / Unknown 07/24/2023 2:49 PM CDT 07/24/2023 2:49 PM CDT Laura Abdi GC LAB - BLOOD ORDERABL ES [facility] [address] [place] [address], [facility] [phone] documented in this encounter Visit Diagnoses Diagnosis Multigravida of advanced maternal age in third trimester documented in this encounter Care Teams Building Services Supervisor Relationship Specialty Start Date End Date Tre Ba MD [address] [place] [address] PCP - General white washer 01/15/22 documented as of this encounter
--- OUTSIDE RECORDS SUMMARY | 2023-09-19 16:22 | XMS_ITS | Encounter Summary ---
Author Organization [place] Address [address] [facility] [place] [address] Care Team Providers Care Loan Servicing Officer Name Role Phone Tre Ba MD Primary Care Provide r Encounter Details Date Type Department Care Team (Late Contact Info) Description 07/03/2023 Medical Correspondence [facility] [address] [place] [address] Scan, Non-Provider Social History Tobacco [...] Info) Description 09/22/2023 11:45 AM CDT Appointment [facility] Maternal Medicine [facility] [address] [place] [phone] Rachel Reyna MD [address] [place], [place] [address] 09/22/2023 12:15 PM CDT Office Visit [facility] Maternal Medicine [facility] [address] [place] [phone] Rachel Reyna MD [address] [place], [place] [address] 09/29/2023 11:45 AM CDT Appointment [facility] Maternal Medicine [place] [address] [place] [phone] Luz Elena Betts MD [address] [place] [address] Lina Wu MD [address] [place] [address] 09/29/2023 12:15 PM CDT Office Visit [facility] Maternal Medicine [place] [address] [place] [phone] Luz Elena Betts MD [address] [place], [place] [address] Lina Wu MD [address] [place], [place] [address] 10/06/2023 11:45 AM CDT Appointment [facility] Medicine [place] [address] [place] [phone] Luz Elena Betts MD [address] [place] [address] 10/06/2023 12:15 PM CDT Office Visit [facility] Maternal Medicine [place] [address] [place] [phone] Luz Elena Betts MD [address] [place], [place] [address] documented as of this encounter Visit Diagnoses Not on filedocumented in this encounter Care Teams Loan Servicing Officer Relationship Specialty Start Date End Date Tre Ba MD [address] [id number] PCP - General senior policy associate 01/15/22 documented as of this encounter
--- OUTSIDE RECORDS SUMMARY | 2023-09-19 16:22 | XMS_ITS | Encounter Summary ---
Author Organization [place] Address [address] [facility] [place] [place] [address] Care Team Providers Care Agriculture Worker Name Role Phone Tre Ba MD [...] Info) Description 09/22/2023 11:45 AM CDT Appointment [facility] Maternal Medicine Center [place] [address] [facility] [address] [place] [phone] Rachel Reyna MD [address] [place], [place] [address] 09/22/2023 12:15 PM CDT Office Visit [facility] Maternal Medicine Center [place] [address] [place] [phone] Rachel Reyna MD [address] [place], [place] [address] 09/29/2023 11:45 AM CDT Appointment [facility] Maternal Medicine [place] [address] [place] [address] Luz Elena Betts MD [address] [place] [address] Lina Wu MD [address] [place] [address] 09/29/2023 12:15 PM CDT Office Visit [facility] [place] [address] [facility] [address] [place] [phone] Luz Elena Betts MD [address] [place] [phone] Lina Wu MD [address] [place], [place] [address] 10/06/2023 11:45 AM CDT Appointment [facility] [place] [address] [facility] [address] [place] [phone] Luz Elena Betts MD [address] [place] [address] 10/06/2023 12:15 PM CDT Office Visit [facility] Maternal Medicine [place] [address] [facility] [address] [place] [phone] Luz Elena Betts MD [address] [place] [phone] documented as of this encounter Visit Diagnoses Not on filedocumented in this encounter Care Teams Agriculture Worker Relationship Specialty Start Date End Date Tre Ba MD [address] [place] [address] PCP - General overnight caregiver 01/15/22 documented as of this encounter
--- OUTSIDE RECORDS SUMMARY | 2023-09-19 16:22 | XMS_ITS | Encounter Summary ---
Author Organization [place] Address [address] [facility] [place] [address] Care Team Providers Care Welder Production Line Arc Name Role Phone Tre Ba MD Primary Care Provide r Reason for Visit * Reason Comments Ultrasound L2-AMA Encounter Details Date Type Department Care Team ([facility] Contact Info) Description 07/08/2023 PRE VISIT [facility] Medicine [facility] [address] [place] [address] Melissa Aguiar RN Ultrasound (L2-AMA) [...] Care Team ([facility] Contact Info) Description 09/22/2023 11:45 AM CDT Appointment [facility] Maternal Medicine [facility] [address] [place] [address] Rachel Reyna MD [address] [facility] [address] [place], [place] [address] 09/22/2023 12:15 PM CDT Office Visit [facility] Maternal Medicine [facility] [address] [place] [address] Rachel Reyna MD [address] [place] [address] 09/29/2023 11:45 AM CDT Appointment [facility] Maternal Medicine [place] [address] [place] [address] Luz Elena Betts MD [address] [place] [address] Lina Wu MD [address] [place] [address] 09/29/2023 12:15 PM CDT Office Visit [facility] Maternal Medicine [place] [address] [place] [phone] Luz Elena Betts MD [address] [place], [place] [address] Lina Wu MD [address] [place] [address] 10/06/2023 11:45 AM CDT Appointment [facility] Maternal Medicine [place] [address] [place] [phone] Luz Elena Betts MD [address] [place], [place] [address] 10/06/2023 12:15 PM CDT Office Visit [facility] Maternal Medicine [place] [address] [place] [phone] Luz Elena Betts MD [address] [place] [address] documented as of this encounter Visit Diagnoses Not on filedocumented in this encounter Care Teams Welder Production Line Arc Relationship Specialty Start Date End Date Tre Ba MD [address] [place] [address] PCP - General regional account director 01/15/22 documented as of this encounter
--- OUTSIDE RECORDS SUMMARY | 2023-09-19 16:22 | XMS_ITS | Encounter Summary ---
Author Organization [place] Address [address] [facility] [place] [address] Care Team Providers Care Aerophysics Engineer Name Role Phone Tre Ba MD Primary Care Provide r Reason for Referral * Diagnostic Imaging Ultrasound (Routine) - Pending Review Specialty Diagnoses / Procedures Referred By Temo taylor Referred To Contact Radiology. Diagnoses Diabetes mellitus, type 2 (H) Polyhydramnios affecting Procedures [facility] Cristiane Rubin MD [address] [place] [address] Referral ID Status Reason Start Date Expiration Date V isits Requested Visits Authorized [id number] Pending Review 07/24/2023 07/23/2024 1 1 Reason for Visit * Diagnostic Imaging Ultrasound (Routine) - Pending Review Specialty Diagnoses / Procedures Referred By Temo taylor Referred To Contact Radiology. Diagnoses Diabetes mellitus, type 2 (H) Polyhydramnios affecting Procedures [facility] Cristiane Rubin MD [address] [place] [address] Referral ID Status Reason Start Date Expiration Date V isits Requested Visits Authorized [id number] Pending Review 07/24/2023 07/23/2024 1 1 Encounter Details Date Type Department Care Team (Latest Contact Info) Description 07/30/2023 3:25 PM CDT - 07/30/2023 11:59 PM CDT Hospital Encounter [facility] M[facility] [address] [phone] Bassem Pathak MD [address] [place], [place] [address] Polyhydramnios affecting Discharge Disposition: Home or Self [...] Info) Description 09/22/2023 11:45 AM CDT Appointment [facility] Medicine [facility] [place] [address] [facility] [address] [place] [phone] Rachel Reyna MD [address] [place] [address] 09/22/2023 12:15 PM CDT Office Visit [facility] [place] [address] [facility] [address] [place] [phone] Rachel Reyna MD [address] [place] [address] 09/29/2023 11:45 AM CDT Appointment [facility] Maternal Medicine [place] [address] [place] [phone] Luz Elena Betts MD [address] [place] [address] Lina Wu MD [address] [place] [address] 09/29/2023 12:15 PM CDT Office Visit [facility] Medicine [place] [address] [place] [phone] Luz Elena Betts MD [address] [place], [place] [address] Lina Wu MD [address] [place], [place] [address] 10/06/2023 11:[address] [facility] Medicine [place] [address] [place] [phone] Luz Elena Betts MD [address] [place] [phone] 10/06/2023 12:15 PM CDT Office Visit [facility] Maternal Medicine [place] [address] [place] [phone] Luz Elena Betts MD [address] [place] [address] documented as of this encounter Procedures Procedure Name Priority Date/Time Associated Diagnosis Comments [facility] BPP SINGLE Routine 07/30/2023 3:46 PM CDT Polyhydramnios affecting documented in this encounter Results * [facility] BPP Single (07/30/2023 [...] ? Study Date: ??07/30/2023 3:27pm Pat. NO: ??[id number] ?Referring ??MD: HOMAR MEDRANO Site: ??[facility] ? Hand Button Splitter: Lashonda Barlow RDMS : ??1985 ?Age: ?? [...] with MFM and once with PCP in [place]. Recommend delivery for GDM A2 and pregestational: ? Well controlled: 55s0h-59x0p ? Poorly controlled: 36e2q-60g2a ? Failed in-hospital attempt at control: 45c0c-26b0s Thank you for the opportunity to participate in the care of this patient. If you have questions regarding today's evaluation or if we can be of further service, please contact the Maternal- Medicine Center. anomalies may be present but not detected Procedure Note Bassem Pathak MD - 07/30/2023 BPP ----- Pat. Name: SHEBA WILDER Study Date: 07/30/2023 3:27pm Pat. NO: [id number] Referring MD: HOMAR MEDRANO Site: [facility] Hand Button Splitter: Lashonda Barlow RDMS : 1985 Age: 37 [...] with twice weekly BPP, once here with [facility] and once withPCP in [place]. Recommend delivery for GDM A2 and pregestational: ? Well controlled: 04m0q-98a2p ? Poorly controlled: 01t1i-05q2u ? Failed in-hospital attempt at control: 56z2a-61t0h Thank you for the opportunity to participate [...] fluid volume appears normal. Crist[facility]el [facility] S documented in this encounter Visit Diagnoses Diagnosis Polyhydramnios affecting documented in this encounter Care Teams Aerophysics Engineer Relationship Specialty Start Date End Date Tre Ba MD [facility] [phone] PCP - General field property loss specialist 01/15/22 documented as of this encounter
--- OUTSIDE RECORDS SUMMARY | 2023-09-19 16:22 | XMS_ITS | Data Portability ---
Author Organization RENO Funez JET OPERATOR, [id number] Address [address] [facility] [place] [address] Assessment Encounter Date Assessment Date Assessment LastModified [...] quantitativ e, serum or plasma 2022 023 [facility], [address] [place] [address], [address], [place], [address], 09:46:18 culture, urine [address], [address], [place], [address], 4 07:02:01 Referral None recorded. Procedures None recorded. Surgeries None recorded. Imaging US, obstetric, transvagina l 2022 023 [email or web address] [id number] [facility], [address] [place] [address], [address], [place], [address], 3 13:56:56 US, obstetric, transvagina l 2022 023 [email or web address] [id number] [facility], [address] [place] [address], [address], [place], [address], 3 11:33:13 US, obstetric, transvagina l 2022 023 [email or web address] [id number] [facility], [address] [place] [address], [address], [place], [address], 3 15:37:35 US, obstetric, transvagina l 2023 024 [email or web address] [id number] [facility], [address] [place] [address], [address] [place] [address], [address], 4 14:40:10 Medication Orders None recorded. Patient TargetsNo targets recorded. Patient Instructions Encounter Date Encounter Id Patient Instructions Last Modified By Organization Details Last Modified Time 07/09/2022 [id number] venous blood draw* Not available 07/09/2022 16:10:57 03/03/2023 [id number] - New OB packet reviewed. Handouts provided. - She is considering transferring care to [place] as she lives an hour away from [...] 92 mIU/m L <5 high Not Available [facility] [address] [facility] [address], [place], [address], 07/10/2022 09:46:17 03/03/19 24 03/03/2023 URINE CULTU RE urine culture SEE RESULT S BELOW Not Available [facility] [address] [facility] [address], [place], [address], 03/05/2023 07:02:01 06/25/19 23 06/24/2022 US, obste tric, trans vagin al No observ ation record ed. [email or web address] [address], [place], [address], 06/24/2022 14:04:18 07/10/19 23 07/09/2022 US, obste tric, trans vagin al No observ ation record ed. [email or web address] [address], [place], [address], 07/09/2022 15:43:58 03/03/19 24 03/03/2023 US, obste tric, trans vagin al No observ ation record ed. [email or web address] [address], [place], [address], 03/03/2023 14:42:22 Result Notes None recorded. Problems No Known Problems Procedures Surgical History Date Name Laterality Status Provider Name and Address Organization Details Recorded Time reversal of female sterilization completed Ivis Gutierrez null, [place] - [facility] JET OPERATOR 10/14/2021 12:58:07 Tubal Ligation completed Ivis Gutierrez null, [place] - [employer] JET OPERATOR 10/14/2021 12:58:13 TUBOTUBAL ANASTOMOSIS (SURG) completed Ivette Mitchell(TERM) null, [place] - [employer] JET OPERATOR 11/11/2021 11:48:16 Imaging Results Imaging Date Name Status LastModified by Organization Details LastModified Time 06/24/2022 US, obstetric, transvaginal completed [email or web address] [address], [place], [address], 06/24/2022 14:04:18 07/09/2022 US, obstetric, transvaginal completed [address], [place], [address], 07/09/2022 15:43:58 03/03/2023 US, obstetric, transvaginal completed [email or web address] [address], [place], [address], 03/03/2023 14:42:22 Procedure Notes None recorded. Medical [...] Updated DateTime 06/24/2022 154.94 cm 32.3 kg/m2 54867.01 g 124 mm[Hg] 68 mm[Hg] Tammie Funez JET OPERATOR 12:10:56 Date Recorded Body height Body mass index (BMI) Body weight Systolic blood pressure Diastolic blood pressure Provider Name and Address Organization Details Last Updated DateTime 07/09/2022 154.94 cm 32.9 kg/m2 20635.07 g 114 mm[Hg] 66 mm[Hg] Dick Lacy [place] - [employer] JET OPERATOR 3 15:44:05 Date Recorded Body height Body mass index (BMI) Body weight Systolic blood pressure Diastolic blood pressure Provider Name and Address Organization Details Last Updated DateTime 03/03/2023 154.94 cm 33.2 kg/m2 76046.82 g 126 mm[Hg] 70 mm[Hg] Katina Branham [facility] JET OPERATOR 4 14:31:00 Social History Question Answer Notes LastModified by Organizat ion Details LastModified Time Tobacco Smoking Status Never Smoker Ivis RENO Barber - [employer] JET OPERATOR 06/07/2020 17:13:51 Do You Have An Advance [...] trivalent, preservative 12/08/2012 completed RENO Reddy [facility] JET OPERATOR 10/14/2021 12:57:47 MMR 01/13/2013 completed Ivis faulkner [place] [facility] JET OPERATOR 10/14/2021 12:57:47 Tdap 12/08/2012 completed RENO Reddy Prememily JET OPERATOR 10/14/2021 12:57:47 Influenza, split virus, trivalent, PF 04/13/2012 completed Ivis RENO Barber - JET OPERATOR 10/14/2021 12:57:47 Past Encounters Encounter ID Performer Location Encounter Start Date Encounter Closed Date Diagnosis/Indication Diagnosis SNOMED-CT Code [id number] Tre Ba MD [id number] [place] [address] 06/07/2020 16:46:29 06/07/2020 17:50:47 Reversal of sterilization [id number] MD RADHA Hanna_CAITY [address],[facility] [address] [place] [phone] 08/05/2021 19:21:07 08/08/2021 12:06:56 Reversal of sterilization [id number] Tre Ba MD [id number] [address] [employer] [place],[address] [place] [id number] 10/14/2021 12:38:21 10/14/2021 13:38:29 Postoperative visit [id number] Tre Ba MD [id number] [facility] [place] [place],[facility] [address] [place] [phone] 01/09/2022 11:28:39 01/09/2022 11:47:14 Finding of viability of [id number] EMMA L[place]_CAITY [address] [employer] [place],[address] [place] [address] 01/09/2022 11:29:08 01/09/2022 18:09:47 Finding of viability of [id number] Uncertain viability of [id number] EMMA LAGU[place]S_METArt [address] [employer] [place],[address] [place] [address] 01/13/2022 12:07:11 01/14/2022 09:21:49 [id number] DO FRANCES Oropeza003_METR [address] [place] [address] 06/24/2022 11:40:01 06/24/2022 12:04:55 Finding of viability of [id number] JAKAI STRAUSSEMMA Elaine HC230_NOPU [address] [address] 06/24/2022 11:43:10 06/24/2022 13:48:42 Gestation period, 7 weeks [id number] Multigravi da of advanced maternal age 190358590 Past pregn barney history of miscarriage [id number] JERMAINE QUIÑONEZ [id number] [address] [address] 07/09/2022 15:05:38 07/10/2022 11:33:13 Missed miscarriage 69015571 [id number] Adri Niño DO [id number] [address] [employer] [place],[address] [place] [id number] 07/09/2022 14:59:44 07/09/2022 15:27:48 Threatened miscarriage in first trimester [id number] EMMA LAGUNAS [id number] [address] [place] [id number] 03/03/2023 14:15:13 03/03/2023 15:28:10 test positive [id number] Gestation period, 8 weeks 03821701 Past pregn barney history of gestational diabetes mellitus 501813432 Past pregn barney history of delivery of macrosomal infant [id number] Multigravi da of advanced maternal age 621526264 Reversal o f sterilization 858116350 [id number] Salvador Costa MD [id number] [address] [place] [address] 03/03/2023 13:46:50 03/03/2023 14:13:48 Finding of viability of [id number] Health Concerns Section Related Observation LastModified by Organization Detai ls LastModified Time None Recorded Concern Status LastModified by Organization Details LastModified Time None Recorded Advance Directives Directive N: Payers Encounter Date Sequence Insurance Name Policy Number Policy [place] Covered Member ID [place] Member ID Guarantor Name 06/24/2022 1 [employer] - DOS PRIOR TO 2022 (MEDICAID REPLACEMENT - HMO) [id number] 1 Sheba Meño [id number] Sheba Meño 07/09/2022 1 [employer] - DOS PRIOR TO 2022 (MEDICAID REPLACEMENT - HMO) [id number] 1 Sheba Meño [id number] Sheba Meño 07/09/2022 1 [employer] - DOS PRIOR TO 2022 (MEDICAID REPLACEMENT - HMO) [id number] 1 Sheba Meño [id number] Sheba Meño 03/03/2023 SLIDING FEE SCHEDULE - [...] 8 weeks 1 day. JAK KAUFMAN, EMMA [address] [facility],[address], [place], [address], [facility] - [employer] JET OPERATOR 06/24/2022 13:48:00 07/09/2022 text/html HPI Notes: The patient presents today as follow up from [facility]. She is a . She had [...] small clots and having cramping. SILVINO TOSCANO, [facility] [address] [facility],[address], [place], [address], [place] - [employer] JET OPERATOR 07/09/2022 16:17:52 03/03/2023 text/html HPI Notes: This [...] The patient would like to deliver at [facility]. Genetic testing was discussed today and [...] [ ] problems/Antepartu m testing: EMMA LAGUNAS [id number] [facility],[address], [place], [address], [place] - [employer] JET OPERATOR 03/03/2023 15:27:22 OBGyn Episode No OBEpisode recorded.
--- OUTSIDE RECORDS SUMMARY | 2023-09-19 16:22 | XMS_ITS | Encounter Summary ---
Author Organization [place] Address [address] [facility] [place] [address] Care Team Providers Care Parking Lot Manager Name Role Phone Tre Ba MD Primary Care Provide r Reason for Visit * Reason Comments Genetic Counseling * Consultation (Routine: Next available opening) - Pending Review Specialty Diagnoses / Procedures Referred By Contac t Referred To Contact Diagnoses related condition, antepartum Ilene Kaplan APRN [facility] [address] [place] [address] Referral ID Status Reason Start Date Expiration Date V isits Requested Visits Authorized [id number] Pending Review 07/03/2023 07/02/2024 1 1 Encounter Details Date Type Department Care Team (Late st Contact Info) Description 07/24/2023 12:45 PM CDT Office Visit [facility] Maternal Medicine Center [place] [address] [facility] [address] [place] [address] Cristiane Patel MD [address] [place] [address] Laura Abdi GC [address] [place] [address] Multigravida of advanced maternal age in [...] Abdi, GC - 07/24/2023 12:45 PM CDT [facility] Medicine Center Genetic Counseling Consult Patient: Sheba Wilder Date of : 1985 Date of Service: 07/24/23 Sheba was seen at the [facility] for genetic consultation. Theindication for genetic counseling is advanced maternal age. The patient was unaccompanied to this visit. The session was conducted in Polish. IMPRESSION/ PLAN 1. Sheba has not had genetic screening in this but elected to have screening today. 2. During today's [facility] visit, Sheba had a blood draw for expanded non-invasive testing (also called NIPT, NIPS, or cell-free DNA) through [facility] ([employer]). The expanded NIPT screens for trisomy 21, [...] an emaildiscussing the results be sent to [email or web address]. Sheba was informed that results, including sex, will be available in [employer]. 3. Sheba had a level II comprehensive anatomy ultrasound today. Please see the ultrasound report for further details. 4. [facility] recommends weekly BPPs starting next week. [...] in these pregnancies, please refer to the [facility] note for more details. FAMILY HISTORY A three-generation family history was obtained today and is scanned under the Media tab in [employer]. The family history was reported by Sheba. [...] of recurrent loss shecan reach out to [facility] or her OB. Sheba has a [...] wants more information they can contact the [facility] Cancer Risk Management Program ( [...] of other microdeletion syndromes (expanded NIPT through [facility]). At this time, it is not possible [...] pleasure to be involved with Sheba???s care. Hsri-gf-dyby time of the meeting was 30 minutes. Laura Abdi MS, [facility] Maternal Medicine Office: [phone] MFM: [phone] [facility] documented in this encounter Plan of Treatment Upcoming Encounters Date Type Department Care Team (Late st Contact Info) Description 09/22/2023 11:45 AM CDT Appointment [facility] Maternal Medicine [place] [address] [place] [phone] Rachel Reyna MD [address] [place], [place] [address] 09/22/2023 12:15 PM CDT Office Visit [facility] Maternal Medicine [place] [address] [place] [phone] Rachel Reyna MD [address] [place], [place] [address] 09/29/2023 11:45 AM CDT Appointment [facility] Maternal Medicine [facility] [address] [place] [phone] Luz Elena Betts MD [address] [place], [place] [address] Lina Wu MD [address] [place], [place] [address] 09/29/2023 12:15 PM CDT Office Visit [facility] Maternal Medicine [facility] [address] [place] [phone] Luz Elena Betts MD [address] [place], [place] [address] Lina Wu MD [address] [place], [place] [address] 10/06/2023 11:45 AM CDT Appointment [facility] Maternal Medicine [facility] [address] [place] [phone] Luz Elena Betts MD [address] [place], [place] [address] 10/06/2023 12:15 PM CDT Office Visit [facility] Medicine [facility] [address] [facility] [address] [place] [phone] Luz Elena Betts MD [address] [place], [place] [address] documented as of this encounter Results * [facility] Non-Invasive Screening???Prequel (07/24/2023 2:49 PM CDT) See Scanned Result [facility] NON-INVASIVE SCREENING PREQUEL-Scann ed 08/02/2023 7:16 PM CDT [facility]ence Blood STRUCTURE OF RIGHT UPPER LIMB / Unknown Venipuncture / Unknown 07/24/2023 2:49 PM CDT 07/24/2023 2:49 PM CDT Laura Abdi GC LAB - BLOOD ORDERABL ES Existence Before Essence [address] [place] [address], [facility] [phone] documented in this encounter Visit Diagnoses Diagnosis Multigravida of advanced maternal age in third trimester- Primary related condition, antepartum documented in this encounter Care Teams Parking Lot Manager Relationship Specialty Start Date End Date Tre Ba MD [address] [place] [address] PCP - General director corporate 01/15/22 documented as of this encounter
--- OUTSIDE RECORDS SUMMARY | 2023-09-19 16:22 | XMS_ITS | Encounter Summary ---
Author Organization [place] Address [address] [place] [place] [address] Care Team Providers Care Alpine Guide Name Role Phone Tre Ba MD Primary [...] Info) Description 09/22/2023 11:45 AM CDT Appointment [facility] Center [place] [address] [facility] [address] [place] [phone] Rachel Reyna MD [address] [place], [place] [address] 09/22/2023 12:15 PM CDT Office Visit [facility] [place] [address] [place] [phone] Rachel Reyna MD [address] [place], [place] [address] 09/29/2023 11:45 AM CDT Appointment [facility] Maternal Medicine [place] [address] [place] [address] Luz Elena Betts MD [address] [place] [address] Lina Wu MD [address] [place] [address] 09/29/2023 12:15 PM CDT Office Visit [facility] Medicine [place] [address] [facility] [address] [place] [phone] Luz Elena Betts MD [address] [place] [address] Lina Wu MD [address] [place], [place] [address] 10/06/2023 11:45 AM CDT Appointment [facility] Medicine [place] [address] [facility] [address] [place] [phone] Luz Elena Betts MD [address] [place] [address] 10/06/2023 12:15 PM CDT Office Visit [facility] Maternal Medicine [place] [address] [facility] [address] [place] [phone] Luz Elena Betts MD [address] [place] [address] documented as of this encounter Visit Diagnoses Not on filedocumented in this encounter Care Teams Alpine Guide Relationship Specialty Start Date End Date Tre Ba MD [address] [place] [address] PCP - General printing equipment mechanic apprentice 01/15/22 documented as of this encounter
--- OUTSIDE RECORDS SUMMARY | 2023-09-19 16:22 | XMS_ITS | Encounter Summary ---
Author Organization [facility] Address [address] [facility] [place] [address] Care Team Providers Care [place] Buyer Name Role Phone Tre Ba MD Primary Care Provide r Reason for Visit * Reason Onset Date Comments Care 07/29/2023 Encounter Details Date Type Department Care Team (Late st Contact Info) Description 07/29/2023 Telephone [facility] [place] [address] [facility] [address] [place] [phone] Carrie Smith, RN Care (/) [...] Smith RN - 07/29/2023 12:07 PM CDT [facility] called to discuss coordinating care between [facility] clinic and [facility]. Plan for [facility] to do once weekly NSTs in the beginning of the week starting at 32 weeks and [facility] will do BPPs toward the end of the week starting at 32 weeks. [facility] 08[facility]23. Pt will need to schedule more weekly BPPs after 08/21/23. Carrie Smith RN on 07/29/2023 at 12:11 PM documented in this encounter Plan of Treatment Upcoming Encounters Date Type Department Care Team (Late st Contact Info) Description 09/22/2023 11:45 AM CDT Appointment [facility] Maternal Medicine [place] [address] [place] [phone] Rachel Reyna MD [address] [place], [place] [address] 09/22/2023 12:15 PM CDT Office Visit [facility] [place] [address] [place] [phone] Rachel Reyna MD [address] [place], [place] [id number] 09/29/2023 11:45 AM CDT Appointment [facility] M[facility] [place] [address] [place] [phone] Luz Elena Betts MD [address] [place], [place] [id number] Lina Wu MD [address] [place], [place] [id number] 09/29/2023 12:15 PM CDT Office Visit [facility] [place] [address] [address] [place] [phone] Luz Elena Betts MD [address] [place], [place] [address] Lina Wu MD [address] [place] [address] 10/06/2023 11:45 AM CDT Appointment [facility] Maternal Medicine [facility] [address] [facility] [address] [facility] [address] [place] [phone] Luz Elena Betts MD [address] [place] [address] 10/06/2023 12:15 PM CDT Office Visit [facility] M[facility] Medicine [facility] [address] [facility] [address] [facility] [address] [place] [phone] Luz Elena Betts MD [address] [facility] [address] [place] [address] documented as of this encounter Visit Diagnoses Not on filedocumented in this encounter Care Teams [employer] Buyer Relationship Specialty Start Date End Date Tre Ba MD [facility] [facility] [address] [place] [address] PCP - General development manager 01/15/22 documented as of this encounter
[2023-09-19] MEDS: LABETALOL HCL 5 MG/ML inj IVP ×3 (17:17→18:47)
[2023-09-19 17:19] LABS: Hematocrit 29.7 % (33.0-51.0); Mean Corpuscular HGB Conc 30 gm/dL (32-36); Mean Corpuscular Hemoglobin 24 pg (26-34); Mean Corpuscular Volume 79 fL (80-100); Red Blood Count 3.77 m/uL (4.00-5.20); White Blood Count* 6.67 K/uL (4.50-11.00)
[2023-09-19] MEDS: LACTATED RINGERS 1000 ML 1,000 ML 75 ML IV (17:24)
[2023-09-19] MEDS: MAGNESIUM IV 4 GM/100 ML PIGGYBACK IVPB (17:28)
[2023-09-19 17:36] LABS: Alanine Aminotransferase* 15 U/L (4-35); Aspartate Amino Transferase* 23 U/L (12-35); Blood Urea Nitrogen* 12 mg/dL (5-24); Creatinine* 0.6 mg/dL (0.5-1.5); Estimated Glomerular Filt Rate 120 ml/min
[2023-09-19 17:44] LABS: Platelet Count* 160 K/uL (140-440); Slide Review Reflex No
[2023-09-19] MEDS: MAGNESIUM Infusion 40 GM/1,000 ML IV.SOLN IVPB (18:01)
[2023-09-19] MEDS: miSOPROStoL 25 MCG/0.25 TABLET VAGINAL (18:16)
[2023-09-19] MEDS: NIFEdipine 30 MG TAB.ER.24 PO ×2 (18:29→22:31)
[2023-09-19 18:40] LABS: Total Protein Urine 130 mg/dL
[2023-09-19 18:41] LABS: Creatinine Urine 196.9 mg/dL; Protein Creatinine Ratio Urine 0.66 (0-0.19)
[2023-09-19] MEDS: ACETAMINOPHEN 500 MG TABLET 1000 MG PO (19:25)
--- NOTE | 2023-09-19 19:51 | P.LDBA_ITS ---
Subjective History of Present Illness Time Seen by Provider: 17:00 Date Seen: 09/19/23 Narrative: Patient is being admitted to Labor and Delivery for IOL at 37 weeks due to uncontrolled diabetes. She is a 37 year old at 37.0 weeks gestation. Her full history and physical was dictated by Dr. Mcdaniel on 08/31/23. Please see this for details. Upon presentation to L&P all her blood pressures were elevated. She subsequently ruled in for severe pre-eclampsia based on severe ranging BP requiring IV antihypertensive and P/C ratio of 0.66. Denies any persistent headache, vision changes, SOB, right upper quadrant/epigastric pain, or rapidly expanding edema. She has not been taking her Lantus and is only taking 3u of lispro preprandial. Active movement. Denies Ctx, LOF, vaginal bleeding or abnormal vaginal discharge. Specific Issues/Plans ?5 FOB: Finn. Their first baby together. He has 2 other kids. H&P done 08/31/[address] Mcdaniel. Poor historian. # Type 2 Diabetes, Hgb A1C of 7.6% at 25 weeks. *Very poor control* * [x] f/u Endo note from 07/27: Change to Lantus 20 units in the morning. Follow up in 1-2 weeks with endo. - By patient report, started on insulin 20u at bedtime (type unknown) with plan to titrate PRN - Utilizing CGM - Following up in 2 weeks with endo by report * [x] s/p MFM consult with Level 2 - Level 2: EFW 1631g @ 94%ile, AC > 99%ile. Mild poly with MVP of 10 (ALEX 24.8cm) - Recommend weekly testing there, then twice weekly starting at 32 weeks, serial growth US and echo - Upcoming [facility] USs: 07/29 and 08/05 BPPs, 08/13 BPP and echo, 08/20 growth and BPP -MFM note dated 08/21/2023. Growth parameters and estimated weight consistent with LGA growth, EFW 6 lb 4 oz (>99%), ALEX by 6.1 cm, representing mild polyhydramnios. Recommendations: [facility]. BPP once weekly at [facility]. echo on 09/17/2023 with pediatric cardiology. growth assessment at [facility] in four weeks. * [x] testing form for 2x weekly at 32 weeks and serial growth US completed 07/28 * Poor compliance with insulin, poor DM control - [facility] discussing 36 week IOL, but final plan will occur with next US there * [ ] f/u echo on 08/28/23 * [x] f/u MFM and growth on 09/14: EFW 98%, ALEX 22.2 cm. Delivery recommended at 37 weeks. * Tentatively listed for IOL here at 37w0d, may move up PRN # Polyhydramnios (resolved on our US, persistent at [facility]) # Advanced maternal age * Decline genetic testing * Level 2 ultrasound ordered # Anemia, Hgb 8.8 on 08/31/2023. Ferritin: 5.3. * Iron infusion therapy recommended. * Recommended these be moved up to [facility] given likely /early term delivery # History of gestational hypertension per patient report, though I do not see this in her previous medical records. * Baseline preeclampsia labs drawn * Advised patient to begin daily baby aspirin at today's visit. # Obesity. BMI 33.2 # History of macrosomic infant and GDM. Her record review, baby was 10 lb 9 oz. Per patient report baby was 11 lb 13 oz # Increased anxiety. PHQ 7, GA D 18 Patient does not feel that she needs medication for her mood. She will continue to monitor this and notify us if that changes. # History of 2 recent losses, 1 at 16 weeks, 1 at 10 weeks. # History of hemorrhage and blood transfusion # History of tubal sterilization reversal # History of abnormal Pap smear. Last Pap September 2021, was ASC-H. October 2021, colposcopy was benign. After patient left, I saw that she is overdue for a Pap smear. [ ] Plan Ultrasounds: 03/03/23 [place]: 8wks 3 days, [facility] 10/10/23 07/24/23 [facility] [place] Level 2 US: EFW 1631g @ 94%ile, AC > 99%ile. Mild poly with MVP of 10 (ALEX 24.8cm), BPP 09/3007/30/23 [facility] [place]: MVP 10.8 cm, ALEX 27.7 cm (mild polyhydramnios), BPP 09/30. Recommend twice weekly BPP (once w/ MFM, once in [place]), grwoth scan q4 wks. 08/14/23 MFM [place]: MVP 9.4 cm, ALEX 25.8 cm, BPP 8/8 08/21/23 MFM [place]: EFW 2846 g (>99%), AC >99%, MVP 10.2 cm, ALEX 26.1 cm. Will make delivery timing recommendation after next growth US Covid: Completed, not up-to-date. Recommended. Patient declines. TDAP:07/29/23 32 wk mental health: 34 HGB: 8.8 36 GBS: Completed early on 09/03, [] H&P: 08/31/[address] 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; one of which was at 16 weeks Status: Acute (4) History of macrosomia in in prior , currently : Status: Acute (5) Anxiety: Status: Acute (6) Obesity (BMI 30-39.9): Status: Acute (7) Advanced maternal age in multigravida: Status: Acute (8) Advanced maternal age (AMA) in : Status: Acute (9) Pap smear of cervix with ASCUS, cannot exclude HGSIL: Problem details: Due for pap Status: Acute (10) Pre-diabetes: Status: Acute Plan Induction - SVE closed - [place] Q 8-10 minutes - will admit due to medical induction of labor for uncontrolled diabetes - Will start IOL with Cytotec protocol - GBS+, will treat with abx intrapartum Pre-Eclampsia with severe features - Based on severe range in blood pressures requiring IV antihypertensive (20 mg and 40 mg of labetalol) and protein creatinine ratio of 0.66. Diagnosed immediately on admission. - BPs 130-170s/70-90s - Symptoms: none - Magnesium: on Magnesium for seizure ppx - IV antihypertensives: Received 20mg and 40 mg of labetalol - PO antihypertensives: Will start Nifedipine 30 mg XL QD - Pre-eclampsia labs on 09/19/23: Hgb 9.0 Plt 160 Cr 0.6 ALT 15 AST 23 - Strict I/O - Q6H preeclampsia labs Class B diabetes - Poorly controlled and poor compliance through resulting in diabetic fetopathy (LGA and polyhydraminos) - Currently taking 20u of lantus QAM and 3u of lispro preprandial. Patient takes her insulin inconsistently - Last A1C 7.6 on 07/01/23 - Largest infant delivered: 10lb 9oz - 10 u of lantus ordered for PM - We do not have lispro for rapid acting. Will use aspart instead. - Ok to use patient's CGM - Patient counseled on risks of pregestational diabetes. These include an increased maternal risk of preeclampsia (which she has), obstetrical injury, delivery and delivery. Risks to the fetus include an increased risk of stillbirth, congenital anomalies, poor growth, macrosomia, shoulder dystocia, and injury. risks include polycythemia, hypoglycemia, hyperbilirubinemia, congestive cardiomyopathy and respiratory distress syndrome. Iron deficiency anemia - Hgb guerda at 8.8 on 08/31/23 - s/p Iron infusion on 09/07/23 - Hgb/plt today is 9.0/160 - Will type and cross 2u of blood due patient's high risk of hemorrhage (LGA, polyhydramnios, anemia, hx of hemorrhage requiring blood transfusion) - Coags pending Wellbeing - MFM US on 09/15/23: Cephalic/Placental location anterior/ALEX 22.2 cm/EFW 3689 g which is 98%tile, AC >99% consistent with 41w1d - NST: 130s bpm, moderate variability, multiple qualifying accelerations, negative decelerations - [place]: Irregular contractions, Q 8-10 minutes OB Exam Physical Exam Vital signs: Pulse BP Pulse Ox 88 163/88 H 99 09/19/23 19:41 09/19/23 19:51 09/19/23 19:48 Narrative: Physical exam: General: No acute distress Psych: Alert and oriented x3, full affect HEENT: Normocephalic, atraumatic Lungs: Unlabored breathing Neuro: No focal deficit. Mentating appropriately Extremities: 1+ LLE edema bilaterally. Pelvic exam: Closed per RN check.
[2023-09-19] MEDS: HYDRALAZINE HCL 20 MG/ML inj 10 MG IVP ×2 (20:50→21:40)
[2023-09-19] MEDS: PROCHLORPERAZINE 10 MG TABLET 5 MG PO (21:29)
--- NOTE | 2023-09-19 22:20 | PM.OBPNL ---
Subjective Time Seen by Provider: 22:00 Date Seen: 09/19/23 Narrative: Evaluated patient at bedside due to severe ranging BP requiring multiple pushes of IV antihypertensive. IOL held since first dose of cytotec at 1814. She's received 20mg,40mg, and 80mg of labetalol and 10mg of hydralazine x 2. SVE @2200 by myself: Dry perineum. 4, moderately soft, posterior. She has headache that has been unremitting despite 1g of tylenol and 5mg of Compazine. It started a few hours after she arrived on L&D. Since my exam around 5pm, she's significantly more swollen. +3 bilateral lower extremity pitting edema. Her fingers and face are also swollen. Discussed with Sheba that I recommend a transfer to a higher level of care. We have been unable to keep her BP consistently below 160/110 and she's very early on in her induction. Soon she might need a nicardipine infusion. I also anticipate that she'll need an insulin infusion during active labor as well. Given that she's on magnesium sulfate and might need two additional drips, it is best she transfers to a tertiary care center with ICU care. It is safest to get her transferred while she's still in latent labor. She was tearful during the discussion but understood her clinical situation well. Overall, she has also been feeling worse and worse as well. Sheba agreed with transfer of care. All questions answered to patient's and family's ( and mother) satisfaction. Objective Vital Signs: Last Vital Signs Temp 98.1 F 09/19/23 22:13 Pulse 103 H 09/19/23 22:11 Resp 18 09/19/23 22:13 BP 149/77 H 09/19/23 22:11 Pulse Ox 100 09/19/23 22:17 Pelvic Exam Dilation (cm): 1 Effacement (%): 25 Station: -4 Contractions Contraction Frequency: Q4 minutes Contraction pattern: Irregular Contraction intensity: Moderate Assessment Status: Category l Heart Rate Baseline: 140 Mcc Variability: Moderate (6-25) Monitor Accelerations: Present Monitor Decelerations: None Tracing Comments: Cat I Labor Progress: s/p 1 dose of cytotec at 1814 Plan Plan: - Discussed patient's clinical case with Dr. Arcelia Zheng ([facility]) who graciously accepted her transfer. - Dr. Zheng requested another Nifedipine 30 XL be given prior to transfer and this was given at 2230. - SVE performed again upon EMS arrival at 2244 to prep her for transport. Dry perineum, unchanged exam (4, moderately soft, and posterior). She is more uncomfortable with contractions but reports she does not feel she will need an epidural soon. - At time of transport: last IV antihypertensive was 10mg of Hydralazine given 2139. Patient report her headache improve significantly within the last 30-45 minutes, likely due to the decreased BP. BP upon leaving the unit was 144/86. assessment Presentation cephalic NST: 140s bpm, moderate variability, multiple qualifying acceleration, [place]: Q2-4 minutes.
[2023-09-22 16:10] LABS: Rapid Plasma Reagin (RPR) Non Reactive (Non Reactive)
== END 2023-09-19 23:01 | disposition short-term general hospital (02) | DRG 831 ==
PROVIDERS: Admitting Provider Obstetrics & Gynecology; Visit Provider Obstetrics & Gynecology
DX: O24.113 Pre-existing type 2 diabetes mellitus, in pregnancy, third trimester (principal); O14.13 Severe pre-eclampsia, third trimester; E11.69 Type 2 diabetes mellitus with other specified complication; Z79.4 Long term (current) use of insulin; O99.013 Anemia complicating pregnancy, third trimester; O99.343 Other mental disorders complicating pregnancy, third trimester; F41.9 Anxiety disorder, unspecified; O99.213 Obesity complicating pregnancy, third trimester; O36.63X0 Maternal care for excessive fetal growth, third trimester, not applicable or unspecified; D50.9 Iron deficiency anemia, unspecified; O40.3XX0 Polyhydramnios, third trimester, not applicable or unspecified; Z91.148 Patient's other noncompliance with medication regimen for other reason; O99.820 Streptococcus B carrier state complicating pregnancy; Z3A.37 37 weeks gestation of pregnancy
CPT/HCPCS: 36415; 82565; 82570; 82962; 84156; 84450; 84460; 84520; 85027; 85384; 85610; 85730; 86592; 86850; 86900; 86901; 86922; A9270; J0360; J1815; J3475; J7120

== ENCOUNTER 2023-09-19 22:50 | Outpatient (CLI) | payer MEDICAID, SELFPAY ==
--- OUTSIDE RECORDS SUMMARY | 2023-09-23 00:18 | XMS_ITS | Encounter Summary ---
Author Organization [facility] Address [address] [place] [address]. [place] [address] Care Team Providers Care Event Technician Name Role Phone Bassem Pathak MD Unavailable [phone] No Ref-Primary, Physician Primary Care Provider Reason for Visit * Auth/Cert (Routine) Specialty Diagnoses / Procedures Referred By Temo taylor Referred To Contact Obstetrics Diagnoses Maternity*BROOKE: 10/10/23*Preeclampsia Preeclampsia, severe Ur [facility] [address] [place] [phone] Referral ID Status Reason Start Date Expiration Date Visits Re quested Visits Authorized [id number] 1 1 Encounter Details Date Type Department Care Team (Late st Contact Info) Description 09/20/2023 5:51 AM CDT Anesthesia Event [facility] [address] [place] [phone] Vickie Agarwal MD [address] [place] [phone] Geno Love MD [address] [place] [address] Anesthesia Record Procedure Summary Procedure Name Responsible Anesthesiologist Anesthesia Start Time Anesthesia Stop Time LABOR ANALGESIA Vickie Agarwal MD 09/20/23 0551 0324 Events Date Time Event Comment 09/20/2023 0551 An Start Anesthesia Star t is defined as when the anesthesia provider assumed care, began anesthesia prep, remained continuously present with the patient, and excludes all time for performing the pre-anesthesia evaluation. The Pre-Anesthesia Evaluation was completed before Anesthesia Start. 0551 AN FACE TIME IN 0617 An Facetime Out 0647 AN FACE TIME IN Patient foun d to sleeping comfortably. Hemodynamics and FHT wnl. 0650 An Facetime Out 2112 AN FACE TIME IN Patient lvl continues to be T10 Bilaterally 2114 An Facetime Out Bolus of .12 5 Bupi given 09/21/2023 0324 An Stop Electronically signed by Carmenza Borjas on September 21, 2023 3:30 AM Meds Name Total BUPivacaine 0.125% PF (epidural) 15 mL * Agents No agents on file. * Blood No blood administrations on file. Lines, Drains, and Airways Type Details Placement Removal Incision/Surgical Site 10/03/21; 0855; Abdomen; Arthur, Mepilex island dressing 10/03/21 0855 by Lexus Evans RN Incision/Surgical Site 01/20/22; 2206; Vagina; peripad 01/20/22 220 by Vickie An RN Peripheral IV 09/20/23; 0000; Righ t; Hand 09/20/23 0000 by Nancy Zee RN Peripheral IV 09/20/23 (placed at other hospital; noted at time of admission and LDA added by copywriter); 18 G; Anterior, Left; Hand 09/20/23 0000 by Nancy Zee, JD Mechanical Ripening Device 09/20/23; 0250; Watkins Bulb (80 cc's); Bard; None; IV Medication; Dr. Mabry; 09/20/23; 0813 09/20/23 0250 by Nancy Zee RN 09/20/23 0813 by Quita Morales RN Epidural 09/20/23; 0605; Resident (Dr. Love); L3-4; RN; Tip intact 09/20/23 0605 by Nancy Zee RN 09/21/23 0430 by Mamta Chatterjee RN documented in this encounter Social History Tobacco Use Types Packs/Day Years Used Date Smoking Tobacco: Never Smokeless Tobacco: Never Alcohol Use Standard Drinks/Week Comments Not Currently 0 (1 standard drink = 0.6 oz pur e alcohol) Adolescent Education Answer Date Record ed Getting School Help Needed Not on file 11/15 Comments Yes Sex and Gender Information Value Date Recorded Sex Assigned at Not on file Gender Identity Not on file Sexual Orientation Not on file documented as of this encounter OR Notes * Anesthesia Procedure Notes - Estephanie Storey MD - 09/20/2023 6:19 AM CDT Associated Order(s): CSE/DPE Block Dural puncture epidural Procedure Note Pre-Procedure Staff - Anesthesiologist: Estephanie Storey MD Resident/Fellow: Geno Love MD Performed By: resident and with residents Procedure performed by resident/fellow/WORKERS' COMPENSATION MEDIATOR in presence of a teaching physician. Location: floor Procedure Start/Stop Times: 09/20/2023 6:00 AM and 09/20/2023 6:12 AM Pre-Anesthestic Checklist: patient identified, IV checked, risks and benefits discussed, informed consent, monitors and equipment checked, pre-op evaluation, at physician/surgeon's request and post-op pain management Timeout: Correct Patient: Yes Correct Procedure: Yes Correct Site: Yes Correct Position: Yes Procedure Documentation Procedure: dural puncture epidural Diagnosis: labor Patient Position: sitting Patient Prep/Sterile Barriers: sterile gloves, mask, patient draped Skin prep: Chloraprep Local skin infiltrated with mL of 1% lidocaine. Insertion Site: L3-4. (midline approach). Technique: LORT saline MOIRA at 6 cm. Needle Type: Touhy Needle Gauge: 17. Needle Length (Inches): 3.5 Spinal Needle Type: Pencan Spinal Needle (gauge): 25 Spinal Needle Length (inches): 4.69 Catheter: 19 G. Catheter threaded easily. 5 cm epidural space. Threaded 11 cm at skin. # of attempts: 1 and # of redirects: 1 Assessment/Narrative Paresthesias: No. Test dose of 3 mL lidocaine 1.5% w/ 1:200,000 epinephrine at 06:07 CDT. Test dose negative, 3 minutes after injection, for signs of intravascular, subdural, or intrathecalinjection. Insertion/Infusion Method: LORT saline No aspiration negative for Heme or CSF via Epidural Catheter. CSF fluid: with Spinal needle.CSF fluid removed: with Epidural needle - not with Epidural needle. Medication(s) Administered Medication Administration Time: 09/20/2023 6:00 AM FOR [facility]) ONLY: Pain Team Contact information: please page the Pain Team Via [employer]Search Pain. During daytime hours, please page the attending first. At night please page the resident first. * Anesthesia Preprocedure Evaluation - Estephanie Storey MD - 09/20/2023 1:18 AM CDT Anesthesia Pre-Procedure Evaluation Patient: Sheba Wilder : 1985 Procedure : No past medical history on file. Past Surgical History: Procedure Laterality Date DILATION AND CURETTAGE DILATION AND CURETTAGE SUCTION N/A 01/20/2022 Procedure: SUCTION DILATION AND CURETTAGE; Surgeon: Jarvis Naqvi MD; Location: [facility] OR TUBOPLASTY Bilateral 10/03/2021 Procedure: BILATERAL TUBAL ANASTOMOSIS; Surgeon: Tre Ba MD; Location: [facility] OR No Known Allergies Social History Tobacco Use Smoking status: Never Smokeless tobacco: Never Substance Use Topics Alcohol use: Not Currently Wt Readings from Last 1 Encounters: 01/20/22 76.4 kg (168 lb 6.4 oz) Anesthesia Evaluation Pt has had prior anesthetic. Type: OB Labor Epidural. No history of anesthetic complications ROS/MED HX ENT/Pulmonary: - neg pulmonary ROS (-) asthma Neurologic: - neg neurologic ROS Cardiovascular: Comment: gHTN (+) hypertension- - PIH and Severe, Mg ++ gtt and BP Meds - - - (-) wheezes METS/Exercise Tolerance: Hematologic: (+) no anticoagulation therapy, thrombocytopenia (plt <150K in 04/2023, suspect gestation now superimposed preE), Musculoskeletal: (+) lumbar spine GI/Hepatic: - neg GI/hepatic ROS (-) GERD Renal/Genitourinary: Endo: (+) type II DM (uncontrolled; hx of GDMA prior pregnancies), Last HgA1c: 7.6, date: 07/01/2023, Usinginsulin, Obesity, Psychiatric/Substance Use: - neg psychiatric ROS Infectious Disease: Malignancy: Other: Comment: 37 yo at 37w1d who presents from OSH with new superimposed preeclampsia with severe features, plan IOL for T2DM (-) previous Physical Exam Airway Mallampati: III TM distance: > 3 FB Neck ROM: full Mouth opening: < 3 cm Respiratory Devices and Support Dental (+) Minor Abnormalities - some fillings, tiny chips Cardiovascular cardiovascular exam normal Pulmonary pulmonary exam normal (-) no wheezes OUTSIDE LABS: CBC: Lab Results Component Value Date WBC 7.7 09/20/2023 HGB 10.1 (L) 09/20/2023 HCT 32.8 (L) 09/20/2023 PLT 104 (L) 09/20/2023 BMP: Lab Results Component Value Date NA 136 09/20/2023 POTASSIUM 4.3 09/20/2023 CHLORIDE 104 09/20/2023 CO2 18 (L) 09/20/2023 BUN 10.8 09/20/2023 CR 0.68 09/20/2023 GLC 113 (H) 09/20/2023 GLC 111 (H) 09/20/2023 COAGS: No results found for: PTT, INR, FIBR POC: Lab Results Component Value Date HCG Negative 10/03/2021 HEPATIC: Lab Results Component Value Date ALBUMIN 3.4 (L) 09/20/2023 PROTTOTAL 6.5 09/20/2023 ALT 14 09/20/2023 AST 19 09/20/2023 ALKPHOS 155 (H) 09/20/2023 BILITOTAL 0.2 09/20/2023 OTHER: Lab Results Component Value Date LAVELL 8.5 (L) 09/20/2023 Anesthesia Plan ASA Status: 3 Anesthesia Type: Epidural. Induction: N/a. Maintenance: N/A. Consents Anesthesia Plan(s) and associated risks, benefits, and realistic alternatives discussed. Questions answered and patient/patient care representative(s) expressed understanding. - Discussed: Risks, Benefits and Alternatives for BOTH SEDATION and the PROCEDURE were discussed - Discussed with: Patient - Extended Intubation/Ventilatory Support Discussed: No. - Patient is DNR/DNI Status: No Postoperative Care Pain management: Oral pain medications. Comments: Other Comments: Sheba Wilder is a multigravid 37 year old F presenting from outside hospital withnew superimposed preE with SF in setting planned IOL for poorly controlled T2DM. She is requesting an epidural for labor analgesia. Her past obstetric history includes uncontrolled T2DM on insulin, gHTN, mild polyhydramnios, Hx of GDM, macrosomia affecting prior vaginal deliveries. PMHx significantfor obesity. Plan for DPE with standard ASA monitors. We discussed the risks and benefits of neuraxial analgesia and/or anesthesia including but not limited to: post dural puncture headache, infection, epidural hematoma, damage to nearby nerves/structures, failed or patchy epidural requiring replace ment or conversion to general anesthesia in an emergent setting. On chart review, evidence of possible gestational thrombocytopenia? with plt count of 137k back in April 2023 and now 104k on admission, will repeat plt count prior to initiation of neuraxial. Sheba Wilder verbalized understanding of these risks. All questions were answered. Geno Love MD I have reviewed the pertinent notes and labs in the chart from the past 30 days and (re)examined the patient. Any updates or changes from those notes are reflected in this note. # Hypocalcemia: Lowest Ca = 8.5 mg/dL in last 2 days, will monitor and replace as appropriate # Hypoalbuminemia: Lowest albumin = 3.4 g/dL at 09/20/2023 12:10 AM, will monitor as appropriate # Thrombocytopenia: Lowest platelets = 104 in last 2 days, will monitor for bleeding documented in this encounter Plan of Treatment Not on file documented as of this encounter Procedures Procedure Name Priority Date/Time Associated Diagnosis Comments FV AN CSE DUMMY PERFORMABLE Routine 09/20/2023 6:00 AM CDT documented in this encounter Results * FV AN CSE DUMMY PERFORMABLE (09/20/2023 6:00 AM CDT) Narrative Estephanie Storey MD - 09/20/2023 6:00 AM CDT Estephanie Storey MD ? 09/20/2023 ??6:21 AM Dural puncture epidural Procedure Note Pre-Procedure Staff - ? Anesthesiologist: ??Estephanie Storey MD ? Resident/Fellow: Geno Love MD ? Performed By: resident and with residents ? Procedure performed by resident/fellow/WORKERS' COMPENSATION MEDIATOR in presence of a teaching physician. ? Location: floor ? Procedure Start/Stop Times: 09/20/2023 6:00 AM and 09/20/2023 6:12 AM ? Pre-Anesthestic Checklist: patient identified, IV checked, risks and benefits discussed, informed consent, monitors and equipment checked, pre-op evaluation, at physician/surgeon's request and post-op pain management Timeout: ? Correct Patient: Yes ? Correct Procedure: Yes ? Correct Site: Yes ? Correct Position: Yes Procedure Documentation Procedure: dural puncture epidural ? Diagnosis: labor ? Patient Position: sitting ? Patient Prep/Sterile Barriers: sterile gloves, mask, patient draped ? Skin prep: Chloraprep ? Local skin infiltrated with mL of 1% lidocaine. ? Insertion Site: L3-4. (midline approach). ? Technique: LORT saline ? MOIRA at 6 cm. ? Needle Type: Touhy ? Needle Gauge: 17. ? Needle Length (Inches): 3.5 ? Spinal Needle Type: Pencan ? Spinal Needle (gauge): 25 ? Spinal Needle Length (inches): 4.69 ? Catheter: 19 G. ? Catheter threaded easily. ? 5 cm epidural space. ? Threaded 11 cm at skin. ? # of attempts: 1 and ??# of redirects: ??1 Assessment/Narrative ? Paresthesias: No. ? Test dose of 3 mL lidocaine 1.5% w/ 1:200,000 epinephrine at 06:07 CDT. ? Test dose negative, 3 minutes after injection, for signs of intravascular, subdural, or intrathecal injection. ? Insertion/Infusion Method: LORT saline ? No aspiration negative for Heme or CSF via Epidural Catheter. ? CSF fluid: with Spinal needle.CSF fluid removed: with Epidural needle - not with Epidural needle. Medication(s) Administered Medication Administration Time: 09/20/2023 6:00 AM FOR [facility]) ONLY: ?? Pain Team Contact information: please page the Pain Team Via [employer]. Search Pain. During daytime hours, please page the attending first. At night please page the resident first. Estephanie Storey MD [place] ANESTHESIA documented in this encounter Visit Diagnoses Not on filedocumented in this encounter Administered Medications Inactive Administered Medications - up to 3 most recent administrations Medication Order MAR Action Action Date Dose Rate Site BUPivacaine (MARCAINE) 0.125 % injection (diluted from stock concentration by or WORKERS' COMPENSATION MEDIATOR) EPIDURAL, PRN, Starting on 09/20/23 at 0607, Anesthesia Intra-op $Given 09/20/2023 9:15 PM CDT 5 mLs $Given 09/20/2023 6:07 AM CDT 10 mLs documented in this encounter Care Teams Event Technician Relationship Specialty Start Date End Date No Ref-Primary, Physician PCP - General 09/20/23 Bassem Pathak MD [address] [place] [address] Assigned OBGYN Provider 08/16/23 documented as of this encounter
--- OUTSIDE RECORDS SUMMARY | 2023-09-23 00:18 | XMS_ITS | Clinical Summary ---
Author Organization [place] Address [address] [place] [address]. [place] [address] Care Team Providers Care Publication Editor Name Role Phone Bassem Pathak MD Unavailable [phone] No Ref-Primary, Physician Primary Care Provider Allergies No known active allergies Medications Medication Sig Dispensed Refills Start Date End Date Status ibuprofen (ADVIL/MOTRIN) 800 MG tabletIndications :Missed Take 1 tablet (800 mg) by mouth every 6 hours as needed for other (mild and/or inflammatory pain) 30 tablet 01/20/2022 Suspended Additional Information acetaminophen (TYLENOL) 325 MG tabletIndications :Missed Take 3 tablets (975 mg) by mouth every 6 hours as needed for mild pain 50 tablet 01/20/2022 Suspended Additional Information Active Problems Problem Noted Date Diagnosed Date Preeclampsia, severe 09/19/2023 Encounters Date Type Department Care Team Description 09/20/2023 5:51 AM CDT Anesthesia Event [facility] [address] [place] [phone] Vickie Agarwal MD Dahmen, Mariah, MD 09/19/2023 11:56 PM CDT - Present Hospital Encounter [facility] [address] [place] [address] [phone] Najma Bell MD Terrell, Carrie Ann, MD (spontaneous vaginal delivery) (Primary Dx) 09/16/2023 Telephone [facility] [address] [place] [address] [place] [phone] Cheri Peters LPN 09/15/2023 2:00 PM CDT Office Visit [facility] [place] [address] [place] [phone] Mitch Jernigan MD Pre-existing type 2 diabetes mellitus during in third trimester (Primary Dx); Polyhydramnios affecting 09/15/2023 1:30 PM CDT - 09/15/2023 11:59 PM CDT Hospital Encounter [facility] [place] [address] [place] [phone] Mitch Jernigan MD Pre-existing type 2 diabetes mellitus during in third trimester Discharge Disposition: Home or Self Care 09/15/2023 Travel 09/08/2023 12:15 PM CDT Office Visit [place] [address] [place] [phone] Bassem Pathak MD Rauk, Phillip Neil, MD Pre-existing type 2 diabetes mellitus during in third trimester (Primary Dx) 09/08/2023 11:45 AM CDT - 09/08/2023 11:59 PM CDT Hospital Encounter [place] [address] [place] [phone] Bassem Pathak MD Rauk, Phillip Neil, MD Pre-existing type 2 diabetes mellitus during in third trimester Discharge Disposition: Home or Self Care 09/08/2023 Travel 09/02/2023 12:15 PM CDT Office Visit [facility] [place] [address] [place] [phone] Luz Elena Betts MD Pre-existing type 2 diabetes mellitus during in third trimester (Primary Dx) 09/02/2023 11:45 AM CDT - 09/02/2023 11:59 PM CDT Hospital Encounter [facility] [place] [address] [place] [phone] Luz Elena Betts MD Pre-existing type 2 diabetes mellitus during in third trimester Discharge Disposition: Home or Self Care 09/02/2023 Travel 08/26/2023 Telephone [facility] [place] [address] [place] [phone] Cheri Peters LPN 08/25/2023 12:15 PM CDT Office Visit [facility] [place] [address] [place] [phone] Bassem Pathak MD Yamamura, Yasuko, MD Pre-existing type 2 diabetes mellitus during in third trimester (Primary Dx); Polyhydramnios in third trimester complication, single or unspecified fetus 08/25/2023 11:45 AM CDT - 08/25/2023 11:59 PM CDT Hospital Encounter [facility] [place] [address] [place] [phone] Bassem Pathak MD Yamamura, Yasuko, MD Pre-existing type 2 diabetes mellitus during in third trimester Discharge Disposition: Home or Self Care 08/25/2023 Travel 08/21/2023 12:15 PM CDT Office Visit [facility] [place] [address] [place] [phone] Cristiane Patel MD Rauk, Phillip Neil, MD Pre-existing type 2 diabetes mellitus during in third trimester (Primary Dx); Polyhydramnios affecting 08/21/2023 11:45 AM CDT - 08/21/2023 11:59 PM CDT Hospital Encounter [facility] [address] [place] [phone] Cristiane Patel MD Rauk, Phillip Neil, MD Polyhydramnios affecting Discharge Disposition: Home or Self Care 08/21/2023 Travel 08/14/2023 4:00 PM CDT Office Visit [facility] [address] [facility] [address] [place] [phone] Cristiane Patel MD Rauk, Mitch Walker MD Pre-existing type 2 diabetes mellitus during in third trimester (Primary Dx); Polyhydramnios affecting 08/14/2023 3:30 PM CDT - 08/14/2023 11:59 PM CDT Hospital Encounter [facility] [address] [facility] [address] [place] [phone] Cristiane Patel MD Rauk, Mitch Walker MD Polyhydramnios affecting Discharge Disposition: Home or Self Care 08/14/2023 Travel 08/03/2023 Telephone [facility] [address] [phone] Laura Abdi, GC Results (Low Risk Expanded NIPT) 07/30/2023 4:00 PM CDT Office Visit [facility] [address] [phone] Bassem Pathak MD Pre-existing type 2 diabetes mellitus during in third trimester (Primary Dx) 07/30/2023 3:25 PM CDT - 07/30/2023 11:59 PM CDT Hospital Encounter [facility] [address] [phone] Bassem Pathak MD Polyhydramnios affecting Discharge Disposition: Home or Self Care 07/30/2023 Travel 07/29/2023 Telephone [facility] [place] [address] [facility] [address] [place] [phone] Carrie Smith, JD Care (/) 07/24/2023 2:40 PM CDT Lab [facility] [address] [place] [phone] Cristiane Patel MD Multigravida of advanced maternal age in third trimester 07/24/2023 2:00 PM CDT Office Visit [facility] [place] [address] [facility] [address] [place] [phone] Cristiane Patel MD with type 2 diabetes mellitus in third trimester (Primary Dx); Polyhydramnios affecting 07/24/2023 12:50 PM CDT - 07/24/2023 11:59 PM CDT Hospital Encounter [facility] [place] [address] [facility] [address] [place] [phone] Cristiane Patel MD related condition, antepartum Discharge Disposition: Home or Self Care 07/24/2023 12:45 PM CDT Office Visit [facility] [place] [address] [phone] Cristiane Patel MD Daykin, Emily C GC Multigravida of advanced maternal age in third trimester (Primary Dx); related condition, antepartum 07/24/2023 Medical Correspondence [facility] [address] [place] [phone] Scan, Non-Provider 07/24/2023 Travel 07/08/2023 PRE VISIT [facility] [place] [address] [phone] Melissa Aguiar, JD Ultrasound (L2-AMA) 07/03/2023 Medical Correspondence [facility] [address] [place] [phone] Scan, Non-Provider 07/03/2023 Transcribe Orders [facility] [place] [address] [phone] Eusebio, Homar N, 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 related condition, antepartum (Primary Dx) from Last [...] Sign Reading Time Taken Comments Blood Pressure 129/78 09/22/2023 11:42 PM CDT Pulse 113 09/22/2023 11:42 PM CDT Temperature 37.5 ??C (99.5 ??F) 09/22/2023 11:42 PM C DT Respiratory Rate 18 09/22/2023 11:42 PM CDT Oxygen Saturation 97% 09/22/2023 3:29 PM CDT Inhaled Oxygen Concentration - - Weight 86.4 kg (190 lb 7.6 oz) 09/22/2023 12:11 PM CDT Height 154.9 cm (5' 1) 01/20/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 Body Mass Index 35.99 01/20/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 Plan of Treatment Health Maintenance Due Date Last Done Comments ADVANCE CARE PLANNING 1987 ANNUAL REVIEW OF HM ORDERS 1987 YEARLY PREVENTIVE VISIT 1987 COVID-19 Vaccine (#1) 10/21/1992 Pneumococcal Vaccine: Pediatrics (0 to 5 Years) and At-Risk Patients (6 to 64 Years) (1 of 2 - PCV) 10/21/1993 HIV SCREENING 10/21/2002 HEPATITIS C SCREENING 10/21/2005 HEPATITIS B IMMUNIZATION (1 of 3 - 19+ 3-dose series) 10/21/2006 PHQ-2 (once per calendar year) 2023 INFLUENZA VACCINE (#1) 2023 12/08/2012, 2012 PAP 09/20/2024 09/20/2021, 09/20/2021 GLUCOSE 09/21/2026 09/22/2023, 08/25, 09/22/2023, Additional history exists DTAP/TDAP/TD IMMUNIZATION (3 - Td or Tdap) 07/28/2033 07/29/2023, 12/08/2012 HPV IMMUNIZATION Aged Out No longer e [...] patient's age to complete this topic Procedures The patient is currently admitted. The information in this section might not be complete until the patient is discharged. Procedure Name Priority Date/Time Associated Diagnosis Comments GLUCOSE BY METER Routine 09/22/2023 10:5 0 PM CDT HEMOGLOBIN Timed 09/22/2023 10:31 PM CDT GLUCOSE BY METER Routine 09/22/2023 6:06 PM CDT GLUCOSE BY METER Routine 09/22/2023 3:14 PM CDT TRANSFUSE RED BLOOD CELLS (UNIT) Routine 09/22/2023 2:19 PM CDT HEMOGLOBIN Routine 09/22/2023 8:02 AM CDT GLUCOSE BY METER Routine 09/22/2023 6:58 AM CDT GLUCOSE BY METER Routine 09/22/2023 2:18 AM CDT GLUCOSE BY METER Routine 09/21/2023 11:0 9 PM CDT CREATININE Timed 09/21/2023 7:36 PM CDT GLUCOSE BY METER Routine 09/21/2023 6:11 PM CDT GLUCOSE BY METER Routine 09/21/2023 10:4 1 AM CDT GLUCOSE BY METER Routine 09/21/2023 9:31 AM CDT GLUCOSE BY METER Routine 09/21/2023 8:37 AM CDT GLUCOSE BY METER Routine 09/21/2023 7:38 AM CDT GLUCOSE BY METER Routine 09/21/2023 6:35 AM CDT GLUCOSE BY METER Routine 09/21/2023 5:30 AM CDT HEPATITIS B SURFACE ANTIGEN STAT Add-on 09/21/2023 5:22 AM CDT CREATININE STAT 09/21/2023 5:22 AM CDT CBC WITH PLATELETS STAT 09/21/2023 5: 22 AM CDT AST STAT 09/21/2023 5:22 AM CDT ALT STAT 09/21/2023 5:22 AM CDT GLUCOSE BY METER Routine 09/21/2023 4:28 AM CDT GLUCOSE BY METER Routine 09/21/2023 2:31 AM CDT GLUCOSE BY METER Routine 09/21/2023 1:29 AM CDT GLUCOSE BY METER Routine 09/21/2023 12:3 0 AM CDT GLUCOSE BY METER Routine 09/20/2023 11:2 9 PM CDT GLUCOSE BY METER Routine 09/20/2023 10:3 3 PM CDT GLUCOSE BY METER Routine 09/20/2023 9:35 PM CDT RBC AND PLATELET MORPHOLOGY Routine 09/20/2023 8:34 PM CDT GLUCOSE BY METER Routine 09/20/2023 8:34 PM CDT CREATININE Routine 09/20/2023 8:34 PM CDT ALT Routine 09/20/2023 8:34 PM CDT AST Routine 09/20/2023 8:34 PM CDT CBC WITH PLATELETS Routine 09/20/2023 8: 34 PM CDT GLUCOSE BY METER Routine 09/20/2023 7:29 PM CDT GLUCOSE BY METER Routine 09/20/2023 6:33 PM CDT GLUCOSE BY METER Routine 09/20/2023 5:27 PM CDT MAGNESIUM STAT 09/20/2023 5:11 PM CDT PREPARE RED BLOOD CELLS (UNIT) Routine 09/20/2023 7:51 AM CDT PREPARE RED BLOOD CELLS (UNIT) Routine 09/20/2023 7:51 AM CDT FV AN CSE DUMMY PERFORMABLE Routine 09/20/2023 6:00 AM CDT GLUCOSE BY METER Routine 09/20/2023 5:51 AM CDT ABO AND RH Routine 09/20/2023 5:36 AM CDT CBC WITH PLATELETS STAT 09/20/2023 5: 36 AM CDT COMPREHENSIVE METABOLIC PANEL Routine 09/20/2023 5:36 AM CDT ABO/RH TYPE AND SCREEN STAT 09/20/2023 12:10 AM CDT TYPE AND SCREEN, ADULT STAT 09/20/2023 12:10 AM CDT HEPATITIS B CORE ANTIBODY STAT Add-on 09/20/2023 12:10 AM CDT HEPATITIS B SURFACE ANTIBODY STAT Add-on 09/20/2023 12:10 AM CDT HEMOGLOBIN A1C Add-On 09/20/2023 12:10 AM CDT GLUCOSE BY METER Routine 09/20/2023 12:1 0 AM CDT TREPONEMA ABS W REFLEX TO RPR AND TITER Routine 09/20/2023 12:10 AM CDT COMPREHENSIVE METABOLIC PANEL STAT 09/20/2023 12:10 AM CDT CBC WITH PLATELETS STAT 09/20/2023 12 :10 AM CDT ROUTINE UA WITH MICROSCOPIC REFLEX TO CULTURE Add-On 09/20/2023 12:03 AM CDT PROTEIN RANDOM URINE STAT 09/20/2023 12:03 AM CDT [facility] US COMPREHENSIVE SINGLE F/U Routine 09/15/2023 2:12 PM CDT Pre-existing type 2 diabetes mellitus during in third trimester [facility] BPP SINGLE Routine 09/08/2023 12:22 PM CDT Pre-existing type 2 diabetes mellitus during in third trimester [facility] BPP SINGLE Routine 09/02/2023 12:22 PM CDT Pre-existing type 2 diabetes mellitus during in third trimester [facility] BPP SINGLE Routine 08/25/2023 12:05 PM CDT Pre-existing type 2 diabetes mellitus during in third trimester [facility] US COMPREHENSIVE SINGLE F/U Routine 08/21/2023 12:39 PM CDT Polyhydramnios affecting [facility] BPP SINGLE Routine 08/14/2023 3:54 PM CDT Polyhydramnios affecting [facility] BPP SINGLE Routine 07/30/2023 3:46 PM CDT Polyhydramnios affecting [facility] NON-INVASIVE SCREENING PREQUEL Routine 07/24/2023 2:49 PM CDT Multigravida of advanced maternal age in third trimester [facility] COMPREHENSIVE SINGLE Routine 07/24/2023 2:13 PM CDT related condition, antepartum from Last 3 Months Results * (ABNORMAL) Glucose by meter (09/22/2023 10:50 PM CDT) Only the most recent of26 resultswithin the time period is included. GLUCOSE BY METER POCT 160(H) 70 - 99 mg/dL 09/22/2023 10:57 PM CDT UR LABORATORY POC Comment:Dr/RN Notified Blood, Capillary BLOOD SPECIMEN / Unknown 09/22/2023 10:50 PM CDT 09/22/2023 10:57 PM CDT Najma Bell MD LAB - [facility] UR LABORATORY POC [facility] [address] [place] [address], [address] * (ABNORMAL) Hemoglobin (09/22/2023 10:31 PM CDT) Only the most recent of2 resultswithin the time period is included. Hemoglobin 7.1(L) 11.7 - 15.7 g/dL 09/22/2023 10:52 PM CDT UR LABORATORY Blood STRUCTURE OF RIGHT UPPER LIMB / Unknown Venipuncture / Unknown 09/22/2023 10:31 PM CDT 09/22/2023 10:49 PM CDT Najma Bell MD LAB - BLOOD ORD ERABLES UR LABORATORY [facility] [address] [place] [address], [address] * Transfuse red blood cells (unit) (09/22/2023 4:22 PM CDT) Gemma Snyder MD BLOOD TRANSFUSION OR DERABLES * Creatinine (09/21/2023 7:36 PM CDT) Only the most recent of3 resultswithin the time period is included. Creatinine 0.87 0.51 - 0.95 mg/dL 09/21/2023 8:31 PM CDT UR LABORATORY GFR Estimate 89 >60 mL/min/1.7 3m2 09/21/2023 8:31 PM CDT UR LABORATORY Comment:eGFR calculated usin 2020 CKD-EPI equation. Blood STRUCTURE OF RIGHT HAND / Unknown Venipuncture / Unknown 09/21/2023 7:36 PM CDT 09/21/2023 8:05 PM CDT Najma Orellana DO LAB - BLOOD ORDERABL ES UR LABORATORY [facility] [address] [facility], [address] [place] [phone] * Hepatitis B surface antigen (09/21/2023 5:22 AM CDT) Hepatitis B Surface Antigen Nonreactive Nonreactive 09/22/2023 9:07 AM CDT UU LABORATORY Blood STRUCTURE OF RIGHT UPPER LIMB / Unknown Venipuncture / Unknown 09/21/2023 5:22 AM CDT 09/21/2023 5:34 AM CDT Kayden Lee MD LAB - BLOOD ORDER [place] [facility] LABORATORY [facility] [address] [facility], [address] [place] [phone] * AST (09/21/2023 5:22 AM CDT) Only the most recent of2 resultswithin the time period is included. AST 26 0 - 45 U/L 09/21/2023 6:0 2 AM CDT UR LABORATORY Blood STRUCTURE OF RIGHT UPPER LIMB / Unknown Venipuncture / Unknown 09/21/2023 5:22 AM CDT 09/21/2023 5:34 AM CDT Brittani Gomez MD LAB - BLOOD ORDERABL ES UR LABORATORY [facility] [address] [facility], [address] * ALT (09/21/2023 5:22 AM CDT) Only the most recent of2 resultswithin the time period is included. ALT 20 0 - 50 U/L 09/21/2023 6:0 2 AM CDT UR LABORATORY Blood STRUCTURE OF RIGHT UPPER LIMB / Unknown Venipuncture / Unknown 09/21/2023 5:22 AM CDT 09/21/2023 5:34 AM CDT Brittani Gomez MD LAB - BLOOD ORDERABL ES Performing Organization Address City/[facility]/ZIP Co de Phone Number UR LABORATORY [facility], [address] * (ABNORMAL) CBC with platelets (09/21/2023 5:22 AM CDT) Only the most recent of4 resultswithin the time period is included. WBC Count 18.9(H) 4.0 - 11.0 10e3/uL 09/21/2023 5:46 AM CDT UR LABORATORY RBC Count 3.75(L) 3.80 - 5.20 10e6/uL 09/21/2023 5:46 AM CDT UR LABORATORY Hemoglobin 9.2(L) 11.7 - 15.7 g/dL 09/21/2023 5:46 AM CDT UR LABORATORY Hematocrit 30.1(L) 35.0 - 47.0 % 09/21/2023 5:46 AM CDT UR LABORATORY MCV 80 78 - 100 fL 09/21/2023 5:46 AM CDT UR LABORATORY MCH 24.5(L) 26.5 - 33.0 pg 09/21/2023 5:46 AM CDT UR LABORATORY MCHC 30.6(L) 31.5 - 36.5 g/dL 09/21/2023 5:46 AM CDT UR LABORATORY RDW 17.1(H) 10.0 - 15.0 % 09/21/2023 5:46 AM CDT UR LABORATORY Platelet Count 134(L) 150 - 450 10e3/uL 09/21/2023 5:46 AM CDT UR LABORATORY Blood STRUCTURE OF RIGHT UPPER LIMB / Unknown Venipuncture / Unknown 09/21/2023 5:22 AM CDT 09/21/2023 5:34 AM CDT Brittani Gomez MD LAB - BLOOD ORDERABL ES UR LABORATORY [facility] [address] [facility], [address] [place] [phone] * RBC and Platelet Morphology (09/20/2023 8:34 PM CDT) Pathologist [facility] Platelet Assessment Automated Count Confirmed. Platelet morphology is normal. Automated Count Confirmed. Platelet morphology is normal. 09/20/2023 9:26 PM CDT UR LABORATORY Acanthocytes 09/20/2023 9:26 PM CDT UR LABORATORY Sivakumar Rods 09/20/2023 9:26 PM CDT UR LABORATORY Basophilic Stippling 09/20/2023 9:26 PM CDT UR LABORATORY Bite Cells 09/20/2023 9:26 PM CDT UR LABORATORY Blister Cells 09/20/2023 9:26 PM CDT UR LABORATORY Michael Cells 09/20/2023 9:26 PM CDT UR LABORATORY Elliptocytes 09/20/2023 9:26 PM CDT UR LABORATORY Hgb C Crystals 09/20/2023 9:26 PM CDT UR LABORATORY [place] Bodies 09/20/2023 9:26 PM CDT UR LABORATORY Hypersegmented Neutrophils 09/20/2023 9:26 PM CDT UR LABORATORY Polychromasia 09/20/2023 9:26 PM CDT UR LABORATORY RBC agglutination 024 9:26 PM CDT UR LABORATORY RBC Fragments 09/20/2023 9:26 PM CDT UR LABORATORY Reactive Lymphocytes 09/20/2023 9:26 PM CDT UR LABORATORY Rouleaux 09/20/2023 9:26 PM CDT UR LABORATORY Sickle Cells 09/20/2023 9:26 PM CDT UR LABORATORY Smudge Cells 09/20/2023 9:26 PM CDT UR LABORATORY Spherocytes 09/20/2023 9:26 PM CDT UR LABORATORY Stomatocytes 09/20/2023 9:26 PM CDT UR LABORATORY Target Cells 09/20/2023 9:26 PM CDT UR LABORATORY Teardrop Cells 09/20/2023 9:26 PM CDT UR LABORATORY Toxic Neutrophils 024 9:26 PM CDT UR LABORATORY RBC Morphology Confirmed RBC Indices 09/20/2023 9:26 PM CDT UR LABORATORY Blood STRUCTURE OF LEFT UPPER LIMB / Unknown Venipuncture / Unknown 09/20/2023 8:34 PM CDT 09/20/2023 8:39 PM CDT Brittani Gomez MD LAB - BLOOD ORDERABL ES UR LABORATORY [facility] [address] [place] [address], [address] * (ABNORMAL) Magnesium (09/20/2023 5:11 PM CDT) Magnesium 6.5(H) 1.7 - 2.3 mg/dL 09/20/2023 5:39 PM CDT UR LABORATORY Blood STRUCTURE OF LEFT UPPER LIMB / Unknown Venipuncture / Unknown 09/20/2023 5:11 PM CDT 09/20/2023 5:14 PM CDT Brittani Gomez MD LAB - BLOOD ORDERABL ES UR LABORATORY [facility] [address] [place] [address], [address] * Prepare red blood cells (unit) (09/20/2023 7:51 AM CDT) Blood Component Type Red Blood Cells UR BLOOD BANK Product Code [id number] UR BLOO D BANK Unit Status Transfused UR BLOO D BANK Unit Number [id number] UR B LOOD BANK CROSSMATCH Compatible UR BLOOD BANK CODING SYSTEM [id number] UR BLO OD BANK ISSUE DATE AND TIME [id number] UR BLOOD BANK UNIT ABO/RH A- UR BLOOD BANK UNIT TYPE ISBT 0600 UR BL OOD BANK 09/20/2023 7:51 AM CDT Cecy Mabry MD BLOOD BANK PRODUCT O RDERABLES UR BLOOD BANK [facility] Lab [address] [facility], [address] [place] [address] * FV AN CSE DUMMY PERFORMABLE (09/20/2023 6:00 AM CDT) Narrative Estephanie Storey MD - 09/20/2023 6:00 AM CDT Estephanie Storey MD ? 09/20/2023 ??6:21 AM Dural puncture epidural Procedure Note Pre-Procedure Staff - ? Anesthesiologist: ??Estephanie Storey MD ? Resident/Fellow: Geno Love MD ? Performed By: resident and with residents ? Procedure performed by resident/fellow/FACILITIES OPERATOR in presence of a teaching physician. ? [...] Medication Administration Time: 09/20/2023 6:00 AM FOR [facility] ([facility]) ONLY: ?? Pain Team Contact information: please page the Pain Team Via [employer]. Search Pain. During daytime hours, please page the attending first. At night please page the resident first. Estephanie Storey MD [place] ANESTHESIA * (ABNORMAL) Comprehensive metabolic panel (09/20/2023 5:36 AM CDT) Only the most recent of2 resultswithin the time period is included. Sodium 133(L) 135 - 145 mmol/L 09/20/2023 6:03 AM CDT UR LABORATORY Potassium 4.2 3.4 - 5.3 mmol/L 09/20/2023 6:03 AM CDT UR LABORATORY Carbon Dioxide (CO2) 19(L) 22 - 29 mmol/L 09/20/2023 6:03 AM CDT UR LABORATORY Anion Gap 12 7 - 15 mmol/L 09/20/2023 6:03 AM CDT UR LABORATORY Urea Nitrogen 8.9 6.0 - 20.0 mg/dL 09/20/2023 6:03 AM CDT UR LABORATORY Creatinine 0.63 0.51 - 0.95 mg/dL 09/20/2023 6:03 AM CDT UR LABORATORY GFR Estimate >90 >60 mL/min/1.7 3m2 09/20/2023 6:03 AM CDT UR LABORATORY Comment:eGFR calculated usin 2020 CKD-EPI equation. Calcium 8.0(L) 8.8 - 10.4 mg/dL 09/20/2023 6:03 AM CDT UR LABORATORY Comment:Reference intervals for this test were updated on 09/08/2023 to reflect our healthy population more accurately. There may be differences in the flagging of prior results with similar values performed with this method. Those prior results can be interpreted in the context of the updated reference intervals. Chloride 102 98 - 107 mmol/L 09/20/2023 6:03 AM CDT UR LABORATORY Glucose 130(H) 70 - 99 mg/dL 09/20/2023 6:03 AM CDT UR LABORATORY Alkaline Phosphatase 152(H) 40 - 150 U/L 09/20/2023 6:03 AM CDT UR LABORATORY AST 21 0 - 45 U/L 09/20/2023 6:03 AM CDT UR LABORATORY ALT 16 0 - 50 U/L 09/20/2023 6:03 AM CDT UR LABORATORY Protein Total 6.4 6.4 - 8.3 g/dL 09/20/2023 6:03 AM CDT UR LABORATORY Albumin 3.3(L) 3.5 - 5.2 g/dL 09/20/2023 6:03 AM CDT UR LABORATORY Bilirubin Total 0.3 <=1.2 mg/dL 09/20/2023 6:03 AM CDT UR LABORATORY Blood STRUCTURE OF LEFT UPPER LIMB / Unknown Venipuncture / Unknown 09/20/2023 5:36 AM CDT 09/20/2023 5:44 AM CDT Cecy Mabry MD LAB - BLOOD ORDERABL ES UR LABORATORY [facility] [place] [facility] [address] [facility], Room [place] [id number] * ABO and Rh (09/20/2023 5:36 AM CDT) ABO/RH(D) A NEG 09/20/2023 8:04 AM CDT UR BLOOD BANK SPECIMEN EXPIRATION DATE [id number] 09/20/2023 8:04 AM CDT UR BLOOD BANK Blood BLOOD SPECIMEN / Unknown Venipuncture-No Charge / Unknown 09/20/2023 5:36 AM CDT 09/20/2023 8:05 AM CDT Laura Wisdom MD LAB - BLOOD BANK T EST ORDER Performing Organization Address City/[facility]/ZIP Co de Phone Number UR BLOOD BANK [facility] [address] [place] [address], [address] * Adult Type and Screen (09/20/2023 12:10 AM CDT) ABO/RH(D) A NEG 09/19/2023 11:57 PM CDT UR BLOOD BANK Antibody Screen Negative Negative 09/19/2023 11:57 PM CDT UR BLOOD BANK SPECIMEN EXPIRATION DATE [id number] 09/19/2023 11:57 PM CDT UR BLOOD BANK Blood STRUCTURE OF LEFT UPPER LIMB / Unknown Venipuncture / Unknown 09/20/2023 12:10 AM CDT 09/20/2023 12:13 AM CDT Cecy Mabry MD LAB - BLOOD BANK DIANE T ORDER UR BLOOD BANK [facility] [address] [place] [address], [address] [phone], [place] * Hepatitis B Surface Antibody (09/20/2023 12:10 AM CDT) Hepatitis B Surface Antibody Reactive 09/22/2023 2:49 PM CDT [facility] Comment:A reactive result in dicates recovery from acute or chronic hepatitis B virus (HBV) infection or acquired immunity from HBV vaccination. This assay does not differentiate between a vaccine-induced immune response and an immune response induced by infection with HBV. A positive total antihepatitis B core result would indicate that the hepatitis B surface antibody response is due to past HBV infection. Hepatitis B Surface Antibody Instrument Value 14.80 <8.5 m[IU]/mL 09/22/2023 2:49 PM CDT [facility] Blood STRUCTURE OF LEFT UPPER LIMB / Unknown Venipuncture / Unknown 09/20/2023 12:10 AM CDT 09/20/2023 12:13 AM CDT Kayden Lee MD LAB - BLOOD ORDER [facility] [address] [facility], [address] * Treponema Abs w Reflex to RPR and Titer (09/20/2023 12:10 AM CDT) Treponema Antibody Total Nonreactive Nonreactive 09/20/2023 10:50 AM CDT SPECIALTY CORE/PROT/EN DO Blood STRUCTURE OF LEFT UPPER LIMB / Unknown Venipuncture / Unknown 09/20/2023 12:10 AM CDT 09/20/2023 12:13 AM CDT Cecy Mabry MD LAB - BLOOD ORDERABL ES SPECIALTY CORE/PROT/ENDO Specialty Core/Prot/Endo [address] [facility], [address] * Hepatitis B core antibody (09/20/2023 12:10 AM CDT) Hepatitis B Core Antibody Total Nonreactive Nonreactive 09/22/2023 2:49 PM CDT [facility] Comment:Nonreactive hepatiti s B core antibody test results indicate the absence of exposure to hepatitis B virus and no evidence of recent, past/resolved, or chronic hepatitis B. Blood STRUCTURE OF LEFT UPPER LIMB / Unknown Venipuncture / Unknown 09/20/2023 12:10 AM CDT 09/20/2023 12:13 AM CDT Kayden Lee MD LAB - BLOOD ORDER P[facility]ER [facility] [address] [facility], [address] [place] [address] * (ABNORMAL) Hemoglobin A1c (09/20/2023 12:10 AM CDT) Hemoglobin A1C 7.4(H) <5.7 % 09/20/2023 4:17 AM CDT [facility] Comment: Normal <5.7% Prediabetes 5.7-6.4% ?? Diabetes 6.5% or higher Note: Adopted from ADA consensus guidelines. Blood STRUCTURE OF LEFT UPPER LIMB / Unknown Venipuncture / Unknown 09/20/2023 12:10 AM CDT 09/20/2023 12:13 AM CDT Cecy Mabry MD LAB - BLOOD ORDERABL ES [facility] [address] [facility], [address] [place] [address] * (ABNORMAL) UA with Microscopic reflex to Culture (09/20/2023 12:03 AM CDT) Color Urine Light Yellow Colorless, Straw, Light Yellow, Yellow 09/20/2023 4:11 AM CDT [facility] Appearance Urine Clear Clear 09/20/19 4:11 AM CDT [facility] Glucose Urine Negative Negative mg/dL 09/20/2023 4:11 AM CDT [facility] Bilirubin Urine Negative Negative 4:11 AM CDT [facility] Ketones Urine Negative Negative mg/dL 09/20/2023 4:11 AM CDT [facility] Specific [place] Urine 1.020 1.003 - 1.035 09/20/2023 4:11 AM CDT [facility] Blood Urine Negative Negative 09/20/2023 4:11 AM CDT [facility] pH Urine 6.5 5.0 - 7.0 09/20/2023 4:11 AM CDT [facility] Protein Albumin Urine 30(A) Negative mg/dL 09/20/2023 4:11 AM CDT [facility] Urobilinogen Urine Normal Normal, 2.0 mg/dL 09/20/2023 4:11 AM CDT [facility] Nitrite Urine Negative Negative 09/20/2023 4:11 AM CDT [facility] Leukocyte Esterase Urine Negative Negative 09/20/2023 4:11 AM CDT [facility] Mucus Urine Present(A) None Seen /LPF 09/20/2023 4:11 AM CDT [facility] RBC Urine 1 <=2 /HPF 09/20/2023 4:11 AM CDT [facility] WBC Urine 1 <=5 /HPF 09/20/2023 4:11 AM CDT [facility] Squamous Epithelials Urine <1 <=1 /HPF 09/20/2023 4:11 AM CDT [facility] Transitional Epithelials Urine <1 <=1 /HPF 09/20/2023 4:11 AM CDT [facility] Urine URINE SPECIMEN OBTAINED BY CLEAN CATCH PROCEDURE / Unknown Non-blood Collection / Unknown 09/20/2023 12:03 AM CDT 09/20/2023 12:38 AM CDT Narrative [facility] - 09/20/2023 4:11 AM CDT Urine Culture not indicated Cecy Mabry MD LAB - URINE ORDERABL ES [facility] Lab [address] [facility], [address] [place] [address] * (ABNORMAL) Protein random urine (09/20/2023 12:03 AM CDT) Total Protein Urine mg/dL 63.8 mg/dL 09/20/2023 1:04 AM CDT [facility] Comment:The reference ranges have not been established in urine protein. The results should be integrated into the clinical context for interpretation. Total Protein Urine mg/mg Creat 0.89(H) 0.00 - 0.20 mg/mg Cr 09/20/2023 1:04 AM CDT [facility] Creatinine Urine mg/dL 71.4 mg/dL 09/20/2023 1:04 AM CDT [facility] Comment:The reference ranges have not been established in urine creatinine. The results should be integrated into the clinical context for interpretation. Urine URINE SPECIMEN OBTAINED BY CLEAN CATCH PROCEDURE / Unknown Non-blood Collection / Unknown 09/20/2023 12:03 AM CDT 09/20/2023 12:38 AM CDT Cecy Mabry MD LAB - URINE ORDERABL ES [facility] Lab [address] [facility], [address] [place] [address] * [facility] Comprehensive Single F/U (09/15/2023 2:12 PM [...] ? Study Date: ??09/15/2023 1:45pm Pat. NO: ??[id number] ?Referring ??MD: HOMAR MEDRANO Site: ? Bursar: Micha Gage RDMS : ??1985 ?Age: ?? [...] lb 2 ?oz EFW by ? Hadlock ([id number]) ANATOMY ----- The following structures appear normal: [...] EDWARDS Study Date: 09/15/2023 1:45pm Pat. NO: [id number] Referring MD: HOMAR MEDRANO Site: Bursar: Micha Gage RDMS : 1985 Age: 37 [...] ----- BPD 93.1mm 37w 6dHadlock OFD 116.5mm -/-Gissel HC 333.3mm 38w 0dHadlock AC 371.8mm 41w 1d >99%Hadlock Femur 67.7mm 34w 6dHadlock Weight Calculation: EFW 3,689g 98%Hadlock EFW (lb,oz) 8 lb 2oz EFW by Hadlock([id number]) ANATOMY ----- The following structures appear normal: [...] [facility] S * [facility] BPP Single (09/08/2023 12:22 PM CDT) Only the most recent of5 resultswithin the time period is included. Anatomical Region Laterality Modality Ultrasound 09/08/2023 12:0 1 PM CDT Impressions 09/08/2023 12:24 PM CDT IMPRESSION ----- 1) Mild polyhydramnios. 2) BPP is reassuring. Narrative 09/08/2023 12:24 PM CDT ?BPP ----- Pat. Name: JACK EDWARDS ? Study Date: ??09/08/2023 12:01pm Pat. NO: ??[id number] ?Referring ??MD: HOMAR MEDRANO Site: ? Bursar: Gemma Pinzon RDMS : ??1985 ?Age: ?? [...] EDWARDS Study Date: 09/08/2023 12:01pm Pat. NO: [id number] Referring MD: HOMAR MEDRANO Site: Bursar: Gemma Pinzon RDMS : 1985 Age: 37 [...] 2) BPP is reassuring. Bassem Pathak MD IMG [facility] US ORDERABLE S * [facility] Non-Invasive Screening???Prequel (07/24/2023 2:49 PM CDT) See Scanned Result [employer] NON-INVASIVE SCREENING PREQUEL-Scann ed 08/02/2023 7:16 PM CDT [facility] Blood STRUCTURE OF RIGHT UPPER LIMB / Unknown Venipuncture / Unknown 07/24/2023 2:49 PM CDT 07/24/2023 2:49 PM CDT Laura Abdi LAB - BLOOD ORDERABL ES [facility] [address] [place] [address], [facility] [phone] * [facility] US Comprehensive Single (07/24/2023 2:13 PM [...] ? Study Date: ??07/24/2023 1:32pm Pat. NO: ??[id number] ?Referring ??MD: HOMAR MEDRANO Site: ??[facility] ? Bursar: Sujatha Joyce RDMS : ??1985 ?Age: ?? [...] 3 lb 10 ?oz EFW by ?Hadlock ([id number]) Head / Face / Neck Biometry: Carpet Technician ? 3.6 ? mm CM ?5.7 ? [...] cava. Inferior vena cava. 3-vessel ? view. 5-naarua-ipnuymz view. Cardiac position. Cardiac size. Cardiac rhythm. [...] are between 220-240. She is following a assistive technology trainer and has met with a clothes model. No one has started her on insulin [...] medical record, and communicating with other health pet care technician and/or care coordination. Please see note for details. Procedure Note Cristiane Patel MD - 07/24/2023 Comprehensive ----- Pat. Name: JACK EDWARDS Study Date: 07/24/2023 1:32pm Pat. NO: [id number] Referring MD: HOMAR MEDRANO Site: [facility] Bursar: Sujatha Joyce RDMS : 1985 Age: 37 ----- INDICATION ----- Advanced Maternal Age. Type 2 diabetes. History of Gestational Hypertension. METHOD ----- Transabdominal ultrasound examination. View: Sufficient ----- Gonzalez . Number of fetuses: 1 DATING ----- DateDetailsGest. age RBOOKE LMP 328 w + 6 d 10/10/2023 [...] 3 lb 10 oz EFW by Hadlock ([id number]) Head / Face / Neck Biometry: Carpet Technician 3.6 mm CM 5.7 mm Nasal bone [...] Superior venacava. Inferior vena cava. 3-vessel view. 2-qlutil-ljrslte view.Cardiac position. Cardiac size. Cardiac rhythm. Right [...] free DNA drawn. They will contact Palak Haileeisidrojunior those results are available. We reviewed that [...] a diabetic educatorand has met with a clothes model. No one has started her on insulin [...] electronic medical record, andcommunicating with other health pet care technician and/or carecoordination. Please see note for details. [...] The BPP was 8/8. Homar Medrano APRN LICENSED NURSE PRACTITIONER IMG [facility] ORDERABLES from Last 3 Months Advance Directives For more information, please contact: [phone] * Full Code (Latest Code Status on File) Date Activated Date Inactivated Comments 09/20/2023 8:47 AM All basic and advanced life-sustaining interventions are performed as appropriate Question Answer Comments Code status determined by: Unable to dis cuss and no AD/POLST on file; continue PREVIOUSLY ORDERED code status Care Teams Publication Editor Relationship Specialty Start Date End Date No Ref-Primary, Physician PCP - General 09/20/23 Bassem Pathak MD [address] [place] [address] Assigned OBGYN Provider 08/16/23
--- OUTSIDE RECORDS SUMMARY | 2023-09-23 00:18 | XMS_ITS | Referral Summary ---
Author Organization [facility] Address [address] [place] [address]. [place] [address] Care Team Providers Care Longitudinal Float Operator Name Role Phone Bassem Pathak MD Unavailable No Ref-Primary, Physician Primary Care Provider Encounters Date Type Department Care Team Description 09/20/2023 5:51 AM CDT Anesthesia Event [facility] [address] [place] [phone] Vickie Agarwal MD Dahmen, Mariah, MD 09/19/2023 11:56 PM CDT - Present Hospital Encounter [facility] [address] [place] [address] [phone] Najma Bell MD Terrell, Carrie Ann, MD (spontaneous vaginal delivery) (Primary Dx) 09/16/2023 Telephone [facility] [address] [place] [address] [phone] Cheri Peters LPN 09/15/2023 Travel 09/15/2023 2:00 PM CDT Office Visit [facility] [place] [address] [facility] [address] [place] [address] Mitch Jernigan MD Pre-existing type 2 diabetes mellitus during in third trimester (Primary Dx); Polyhydramnios affecting 09/15/2023 1:30 PM CDT - 09/15/2023 11:59 PM CDT Hospital Encounter [facility] [place] [address] [place] [phone] Mitch Jernigan MD Pre-existing type 2 diabetes mellitus during in third trimester Discharge Disposition: Home or Self Care 09/08/2023 Travel 09/08/2023 12:15 PM CDT Office Visit [facility] [place] [address] [place] [phone] Bassem Pathak MD Rauk, Phillip Neil, MD Pre-existing type 2 diabetes mellitus during in third trimester (Primary Dx) 09/08/2023 11:45 AM CDT - 09/08/2023 11:59 PM CDT Hospital Encounter [facility] [place] [address] [place] [phone] Bassem Pathak MD Rauk, Phillip Neil, MD Pre-existing type 2 diabetes mellitus during in third trimester Discharge Disposition: Home or Self Care 09/02/2023 Travel 09/02/2023 12:15 PM CDT [facility] [place] [address] [place] [phone] Luz Elena Betts MD Pre-existing type 2 diabetes mellitus during in third trimester (Primary Dx) 09/02/2023 11:45 AM CDT - 09/02/2023 11:59 PM CDT Hospital Encounter [facility] [place] [address] [place] [phone] Luz Elena Betts MD Pre-existing type 2 diabetes mellitus during in third trimester Discharge Disposition: Home or Self Care 08/26/2023 Telephone [facility] [address] [place] [phone] Cheri Peters LPN 08/25/2023 Travel 08/25/2023 12:15 PM CDT Office Visit [facility] [place] [address] [place] [phone] Bassem Pathak MD Yamamura, Yasuko, MD Pre-existing type 2 diabetes mellitus during in third trimester (Primary Dx); Polyhydramnios in third trimester complication, single or unspecified fetus 08/25/2023 11:45 AM CDT - 08/25/2023 11:59 PM CDT Hospital Encounter [facility] [place] [address] [place] [phone] Bassem Pathak MD Yamamura, Yasuko, MD Pre-existing type 2 diabetes mellitus during in third trimester Discharge Disposition: Home or Self Care 08/21/2023 Travel 08/21/2023 12:15 PM CDT Office Visit [facility] [place] [address] [place] [phone] Cristiane Patel MD Rauk, Phillip Neil, MD Pre-existing type 2 diabetes mellitus during in third trimester (Primary Dx); Polyhydramnios affecting 08/21/2023 11:45 AM CDT - 08/21/2023 11:59 PM CDT Hospital Encounter [facility] [place] [address] [place] [phone] Cristiane Patel MD Rauk, Phillip Neil, MD Polyhydramnios affecting Discharge Disposition: Home or Self Care 08/14/2023 Travel 08/14/2023 4:00 PM CDT Office Visit [facility] [place] [address] [place] [phone] Cristiane Patel MD Rauk, Phillip Neil, MD Pre-existing type 2 diabetes mellitus during in third trimester (Primary Dx); Polyhydramnios affecting 08/14/2023 3:30 PM CDT - 08/14/2023 11:59 PM CDT Hospital Encounter [facility] [place] [address] [facility] [address] [place] [address] Cristiane Patel MD Rauk, Mitch Walker MD Polyhydramnios affecting Discharge Disposition: Home or Self Care 08/03/2023 Telephone [facility] [address] [phone] Laura Abdi, GC Results (Low Risk Expanded NIPT) 07/30/2023 Travel 07/30/2023 4:00 PM CDT Office Visit [facility] [address] [phone] Bassem Pathak MD Pre-existing type 2 diabetes mellitus during in third trimester (Primary Dx) 07/30/2023 3:25 PM CDT - 07/30/2023 11:59 PM CDT Hospital Encounter [facility] [address] [phone] Bassem Pathak MD Polyhydramnios affecting Discharge Disposition: Home or Self Care 07/29/2023 Telephone [facility] [place] [address] [facility] [address] [place] [phone] Carrie Smith, JD Care (/) 07/24/2023 Medical Correspondence [facility] [address] [place] [phone] Scan, Non-Provider 07/24/2023 2:40 PM CDT Lab [facility] [address] [place] [phone] Cristiane Patel MD Multigravida of advanced maternal age in third trimester 07/24/2023 Travel 07/24/2023 2:00 PM CDT Office Visit [facility] [address] [facility] [address] [place] [phone] Cristiane Patel MD with type 2 diabetes mellitus in third trimester (Primary Dx); Polyhydramnios affecting 07/24/2023 12:50 PM CDT - 07/24/2023 11:59 PM CDT Hospital Encounter [facility] [place] [address] [facility] [address] [place] [phone] Cristiane Patel MD related condition, antepartum Discharge Disposition: Home or Self Care 07/24/2023 12:45 PM CDT Office Visit [facility] [place] [address] [phone] Cristiane Patel MD Daykin, Emily C Multigravida of advanced maternal age in third trimester (Primary Dx); related condition, antepartum 07/08/2023 PRE VISIT [place] [address] [phone] Melissa Aguiar RN Ultrasound (L2-AMA) 07/03/2023 Medical Correspondence [facility] [address] [facility] [place] [phone] Scan, Non-Provider 07/03/2023 Transcribe Orders [place] [address] [phone] Homar Medrano, NEWS TECHNICAL DIRECTOR SUPERVISOR PLASMA related condition, antepartum (Primary Dx) from Last [...] Noted Date Diagnosed Date Preeclampsia, severe 09/19/2023 Social History Tobacco Use Types Packs/Day Years [...] 154.9 cm (5' 1) 01/20/2022 4:42 PM CARE ASSISTANT Body Mass Index 35.99 01/20/2022 4:42 PM CARE ASSISTANT Plan of Treatment Not on file Procedures The patient is currently admitted. The [...] RANDOM URINE STAT 09/20/2023 12:03 AM CDT [facility] US COMPREHENSIVE SINGLE F/U Routine 09/15/2023 2:12 PM CDT Pre-existing type 2 diabetes mellitus during in third trimester [facility] BPP SINGLE Routine 09/08/2023 12:22 PM CDT Pre-existing type 2 diabetes mellitus during in third trimester [facility] SINGLE Routine 09/02/2023 12:22 PM CDT Pre-existing type 2 diabetes mellitus during in third trimester [facility] SINGLE Routine 08/25/2023 12:05 PM CDT Pre-existing type 2 diabetes mellitus during in third trimester [facility] SINGLE F/U Routine 08/21/2023 12:39 PM CDT Polyhydramnios affecting [facility] SINGLE Routine 08/14/2023 3:54 PM CDT Polyhydramnios affecting [facility] SINGLE Routine 07/30/2023 3:46 PM CDT Polyhydramnios affecting [facility] NON-INVASIVE SCREENING PREQUEL Routine 07/24/2023 2:49 PM CDT Multigravida of advanced maternal age in third trimester [facility] SINGLE Routine 07/24/2023 2:13 PM CDT related condition, antepartum from Last 3 Months Results * (ABNORMAL) Glucose by meter (09/22/2023 10:50 PM CDT) Only the most recent of26 resultswithin the time period is included. [facility] GLUCOSE BY METER POCT 160(H) 70 - 99 mg/dL 09/22/2023 10:57 PM CDT UR LABORATORY POC Comment:Dr/RN Notified Blood, Capillary BLOOD SPECIMEN / Unknown 09/22/2023 10:50 PM CDT 09/22/2023 10:57 PM CDT Najma JOHNSON - [facility] UR LABORATORY POC [facility] [address] [facility] [facility], [address] [place] [phone] * (ABNORMAL) Hemoglobin (09/22/2023 10:31 PM CDT) Only the most recent of2 resultswithin the time period is included. Hemoglobin 7.1(L) 11.7 - 15.7 g/dL 09/22/2023 10:52 PM CDT UR LABORATORY Blood STRUCTURE OF RIGHT UPPER LIMB / Unknown Venipuncture / Unknown 09/22/2023 10:31 PM CDT 09/22/2023 10:49 PM CDT Najma Bell MD LAB - BLOOD ORD ERABLES UR LABORATORY [facility] [address] [place] [address], [address] * Transfuse red blood cells (unit) [...] LAB - BLOOD ORDERABL ES UR LABORATORY [facility] [address] [place] [address], [address] * Hepatitis B surface antigen (09/21/2023 5:22 AM CDT) Hepatitis B Surface Antigen Nonreactive Nonreactive 09/22/2023 9:07 AM CDT UU LABORATORY Blood STRUCTURE OF RIGHT UPPER LIMB / Unknown Venipuncture / Unknown 09/21/2023 5:22 AM CDT 09/21/2023 5:34 AM CDT Kayden Lee MD LAB - BLOOD ORDER PARKER UU LABORATORY [facility] [place] [facility] [address] [facility], [address] [place] [address], [facility] * AST (09/21/2023 5:22 AM CDT) Only the most recent of2 resultswithin the time period is included. AST 26 0 - 45 U/L 09/21/2023 6:0 2 AM CDT UR LABORATORY Blood STRUCTURE OF RIGHT UPPER LIMB / Unknown Venipuncture / Unknown 09/21/2023 5:22 AM CDT 09/21/2023 5:34 AM CDT Brittani Gomez MD LAB - BLOOD ORDERABL ES Performing Organization Address City/[facility]/ZIP Co de Phone Number UR LABORATORY [facility] [address] [facility] [facility], [address] [phone], [facility] * ALT (09/21/2023 5:22 AM CDT) Only the most recent of2 resultswithin the time period is included. ALT 20 0 - 50 U/L 09/21/2023 6:0 2 AM CDT UR LABORATORY Blood STRUCTURE OF RIGHT UPPER LIMB / Unknown Venipuncture / Unknown 09/21/2023 5:22 AM CDT 09/21/2023 5:34 AM CDT Brittani Gomez MD LAB - BLOOD ORDERABL ES UR LABORATORY [facility] [address] [facility], [address] [phone], [facility] * (ABNORMAL) CBC with platelets (09/21/2023 5:22 [...] LAB - BLOOD ORDERABL ES UR LABORATORY [facility] [address] [facility] [facility], [address] [place] [phone], [facility] * RBC and Platelet Morphology (09/20/2023 8:34 PM CDT) Platelet Assessment Automated Count Confirmed. Platelet morphology is normal. Automated Count Confirmed. Platelet morphology is normal. 09/20/2023 9:26 PM CDT UR LABORATORY Acanthocytes 09/20/2023 9:26 PM CDT UR LABORATORY Sivakumar Rods 09/20/2023 9:26 PM CDT UR LABORATORY Basophilic Stippling 09/20/2023 9:26 PM CDT UR LABORATORY Bite Cells 09/20/2023 9:26 PM CDT UR LABORATORY Blister Cells 09/20/2023 9:26 PM CDT UR LABORATORY [place] Cells 09/20/2023 9:26 PM CDT UR LABORATORY Elliptocytes 09/20/2023 9:26 PM CDT UR LABORATORY Hgb C Crystals 09/20/2023 9:26 PM CDT UR LABORATORY [place] Bodies 09/20/2023 9:26 PM CDT UR LABORATORY [...] LAB - BLOOD ORDERABL ES UR LABORATORY [facility] [address] [facility] [facility], [address] [place] [phone], [facility] * (ABNORMAL) Magnesium (09/20/2023 5:11 PM CDT) Magnesium 6.5(H) 1.7 - 2.3 mg/dL 09/20/2023 5:39 PM CDT UR LABORATORY Blood STRUCTURE OF LEFT UPPER LIMB / Unknown Venipuncture / Unknown 09/20/2023 5:11 PM CDT 09/20/2023 5:14 PM CDT Brittani Gomez MD LAB - BLOOD ORDERABL ES UR LABORATORY [facility] [address] [facility] [facility], [address] * Prepare red blood cells (unit) (09/20/2023 7:51 AM CDT) Blood Component Type Red Blood Cells UR BLOOD BANK Product Code [id number] UR BLOO D BANK Unit Status Transfused UR BLOO D BANK Unit Number [id number] UR B LOOD BANK CROSSMATCH Compatible UR BLOOD BANK CODING SYSTEM [id number] UR BLO OD BANK ISSUE DATE AND TIME [id number] UR BLOOD BANK UNIT ABO/RH A- UR BLOOD BANK UNIT TYPE ISBT 0600 UR BL OOD BANK 09/20/2023 7:51 AM CDT Cecy Mabry MD BLOOD BANK PRODUCT O RDERABLES Performing Organization Address City/[facility] de Phone Number UR BLOOD BANK [facility] Lab [address] [place] [address], [address] * FV AN CSE DUMMY PERFORMABLE (09/20/2023 6:00 AM CDT) Narrative Estephanie Storey MD - 09/20/2023 6:00 AM CDT Estephanie Storey MD ? 09/20/2023 ??6:21 AM Dural puncture epidural Procedure Note Pre-Procedure Staff - ? Anesthesiologist: ??Estephanie Storey MD ? Resident/Fellow: Geno Love MD ? Performed By: resident and with residents ? Procedure performed by resident/fellow/POLYSILICON PREPARATION WORKER in presence of a teaching physician. ? [...] Medication Administration Time: 09/20/2023 6:00 AM FOR [facility] ([facility]) ONLY: ?? Pain Team Contact information: please page the Pain Team Via eflow. Search Pain. During daytime hours, please page the attending first. At night please page the resident first. Estephanie Storey MD [place] ANESTHESIA * (ABNORMAL) Comprehensive metabolic panel (09/20/2023 [...] 6:03 AM CDT UR LABORATORY Comment:eGFR calculated us2020 CKD-EPI equation. Calcium 8.0(L) 8.8 - 10.4 [...] LAB - BLOOD ORDERABL ES UR LABORATORY [facility] [address] [place] [address], [address] [place] [phone] * ABO and Rh (09/20/2023 5:36 AM CDT) ABO/RH(D) A NEG 09/20/2023 8:04 AM CDT UR BLOOD BANK SPECIMEN EXPIRATION DATE [id number] 09/20/2023 8:04 AM CDT UR BLOOD BANK Blood BLOOD SPECIMEN / Unknown Venipuncture-No Charge / Unknown 09/20/2023 5:36 AM CDT 09/20/2023 8:05 AM CDT Laura Wisdom MD LAB - BLOOD BANK T EST ORDER UR BLOOD BANK [facility]onents Lab [address] [place] [address], [address] [place] [phone] * Adult Type and Screen (09/20/2023 12:10 AM CDT) ABO/RH(D) A NEG 09/19/2023 11:57 PM CDT UR BLOOD BANK Antibody Screen Negative Negative 09/19/2023 11:57 PM CDT UR BLOOD BANK SPECIMEN EXPIRATION DATE [id number] 09/19/2023 11:57 PM CDT UR BLOOD BANK Blood STRUCTURE OF LEFT UPPER LIMB / Unknown Venipuncture / Unknown 09/20/2023 12:10 AM CDT 09/20/2023 12:13 AM CDT Cecy Mabry MD LAB - BLOOD BANK DIANE T ORDER UR BLOOD BANK [facility] [place] Blood Components Lab [address] [facility], [address] [place] [phone] * Hepatitis B Surface Antibody (09/20/2023 12:10 [...] LAB - BLOOD ORDER PARKER UU LABORATORY [facility] [place] [facility] [address] [facility], [address] [place] [phone] * Treponema Abs w Reflex to RPR and Titer (09/20/2023 12:10 AM CDT) Treponema Antibody Total Nonreactive Nonreactive 09/20/2023 10:50 AM CDT [facility] CORE/PROT/EN DO Blood STRUCTURE OF LEFT UPPER LIMB / Unknown Venipuncture / Unknown 09/20/2023 12:10 AM CDT 09/20/2023 12:13 AM CDT Cecy Mabry MD LAB - BLOOD ORDERABL ES [facility]/PROT/ENDO [facility]/Prot/Endo [address] [facility], [address] * Hepatitis B core antibody (09/20/2023 [...] Lee MD LAB - BLOOD ORDER PARKER Performing Organization Address City/[facility]/ZIP Co de Phone Number UU LABORATORY [facility] Lab [address] [facility], [address] * (ABNORMAL) Hemoglobin A1c (09/20/2023 12:10 AM [...] LAB - BLOOD ORDERABL ES UR LABORATORY [facility] Lab [address] [facility], [address] [place] [address], [facility] * (ABNORMAL) UA with Microscopic reflex to [...] 09/20/2023 4:11 AM CDT UR LABORATORY Specific [place] Urine 1.020 1.003 - 1.035 09/20/2023 4:11 [...] Mabry MD LAB - URINE ORDERABL ES Performing Organization Address City/[facility]/ZIP Co de Phone Number UR LABORATORY [facility] [address] [facility], Room [place] [phone] * (ABNORMAL) Protein random urine (09/20/2023 12:03 [...] Mabry MD LAB - URINE ORDERABL ES Performing Organization Address City/[facility]/ZIP Co de Phone Number UR LABORATORY [facility] [address] [place] [address], [address] [phone] * [facility] US Comprehensive Single F/U (09/15/2023 [...] ? Study Date: ??09/15/2023 1:45pm Pat. NO: ??[id number] ?Referring ??MD: HOMAR MEDRANO Site: ? Collections Director: Micha Gage RDMS : ??1985 ?Age: ?? [...] BPD ? 93.1 ?mm ? 37w 6d ?Josh BECK ? 116.5 ?mm ? -/- ?Nicolaides HC ? 333.3 ?mm ? 38w 0d ? Hadlock AC ? 371.8 ?mm ? 41w 1d ?>99% ?[place] Femur ?67.7 ?mm ? 34w 6d ? [place] Weight Calculation: EFW ?3,122 ?g ?98% ? [place] EFW (lb,oz) ?8 lb 2 ?oz EFW by ? [place] ([id number]) ANATOMY ----- The following structures appear normal: [...] EDWARDS Study Date: 09/15/2023 1:45pm Pat. NO: [id number] Referring MD: HOMAR MEDRANO Site: Collections Director: Micha Gage RDMS : 1985 Age: 37 [...] EFW (lb,oz) 8 lb 2oz EFW by Hadlock([id number]) ANATOMY ----- The following structures appear normal: [...] BPP is reassuring. Luz Elena Betts MD [facility] US ORDERABLE [facility] BPP Single (09/08/2023 12:22 PM CDT) Only the most recent of5 resultswithin the time period is included. Anatomical Region Laterality Modality Ultrasound 09/08/2023 12:0 1 PM CDT Impressions 09/08/2023 12:24 PM CDT IMPRESSION ----- 1) Mild polyhydramnios. 2) BPP is reassuring. Narrative 09/08/2023 12:24 PM CDT ?BPP ----- Pat. Name: JACK EDWARDS ? Study Date: ??09/08/2023 12:01pm Pat. NO: ??[id number] ?Referring ??MD: HOMAR MEDRANO Site: ? Collections Director: Gemma PinzonAMALIA : ??1985 ?Age: ?? 37 [...] BPP at your office weekly and at [facility] weekly. Return to primary provider [...] EDWARDS Study Date: 09/08/2023 12:01pm Pat. NO: [id number] Referring MD: HOMAR MEDRANO Site: Collections Director: Gemma Pinzon RDMS : 1985 Age: 37 [...] [facility] Return to primary provider for continued care. Thank-you for the opportunity to participate in the care of this patient.If you have questions regarding today's evaluation or if we can be offurther service, please contact the M[facility] Center. anomalies may be present but not detected IMPRESSION ----- 1) Mild polyhydramnios. 2) BPP is reassuring. Bassem Pathak MD [facility] ORDERABLE S * [facility] Non-Invasive Screening???Prequel (07/24/2023 2:49 PM CDT) See Scanned Result [employer] NON-INVASIVE SCREENING PREQUEL-Scann ed 08/02/2023 7:16 PM CDT [facility] Blood STRUCTURE OF RIGHT UPPER LIMB / Unknown Venipuncture / Unknown 07/24/2023 2:49 PM CDT 07/24/2023 2:49 PM CDT Laura Abdi LAB - BLOOD ORDERABL ES [facility] [address] [place] [address], [facility] [phone] * [facility] Comprehensive Single (07/24/2023 2:13 PM CDT) [...] ? Study Date: ??07/24/2023 1:32pm Pat. NO: ??[id number] ?Referring ??MD: HOMAR MEDRANO Site: ??[facility] ? Collections Director: Sujatha Joyce RDMS : ??1985 ?Age: ?? [...] ?Hadlock Humerus ?52.9 ?mm ? 30w 6d ?[place]il[place] Weight Calculation: EFW ? 1,631 ?g ? 94% ?[place] EFW (lb,oz) ? 3 lb 10 ?oz EFW by ?[facility] ([id number]) Head / Face / Neck Biometry: Compilation Clerk ? 3.6 ? mm CM ?5.7 ? [...] cava. Inferior vena cava. 3-vessel ? view. 7-uqoguq-dajykfx view. Cardiac position. Cardiac size. Cardiac rhythm. [...] are between 220-240. She is following a parent educator and has met with a sample worker. No one has started her on insulin [...] medical record, and communicating with other health lawn caretaker and/or care coordination. Please see note for details. Procedure Note Cristiane Patel MD - 07/24/2023 Comprehensive ----- Pat. Name: JACK EDWARDS Study Date: 07/24/2023 1:32pm Pat. NO: [id number] Referring MD: HOMAR MEDRANO Site: [facility] Collections Director: Sujatha Joyce RDMS : 1985 Age: 37 [...] 3 lb 10 oz EFW by Hadlock ([id number]) Head / Face / Neck Biometry: Compilation Clerk 3.6 mm CM 5.7 mm Nasal bone [...] Superior venacava. Inferior vena cava. 3-vessel view. 5-hkhgcy-pgokcij view.Cardiac position. Cardiac size. Cardiac rhythm. Right [...] a diabetic educatorand has met with a sample worker. No one has started her on insulin [...] electronic medical record, andcommunicating with other health lawn caretaker and/or carecoordination. Please see note for [...] The BPP was 8/8. Homar Medrano APRN SUPERVISOR PLASMA [facility] ORDERABLES from Last 3 Months Advance Directives For more information, please contact: [phone] * Full Code (Latest Code Status on File) Date Activated Date Inactivated Comments 09/20/2023 8:47 AM All basic and advanced life-sustaining interventions are performed as appropriate Question Answer Comments Code status determined by: Unable to dis cuss and no AD/POLST on file; continue PREVIOUSLY ORDERED code status Care Teams Longitudinal Float Operator Relationship Specialty Start Date End Date No Ref-Primary, Physician PCP - General 09/20/23 Bassem Pathak MD [address] [place] [address] Assigned OBGYN Provider 08/16/23
--- OUTSIDE RECORDS SUMMARY | 2023-09-23 00:19 | XMS_ITS | Encounter Summary ---
Author Organization [place] Address [facility] [place] [address] Care Team Providers Care Hydramatic Mechanic Name Role Phone Tre Ba MD Primary Care Provide r Bassem Pathak MD Unavailable Reason for Referral * Diagnostic Imaging Ultrasound (Routine) - Pending Review Specialty Diagnoses / Procedures Referred By Temo taylor Referred To Contact Radiology. Diagnoses Pre-existing type 2 diabetes mellitus during in third trimester Procedures [facility] Bassem Dhillon MD [address] [facility] [address] [place] [address] Referral ID Status Reason Start Date Expiration Date V isits Requested Visits Authorized [id number] Pending Review 07/30/2023 07/29/2024 1 1 Reason for Visit * Diagnostic Imaging Ultrasound (Routine) - Pending Review Specialty Diagnoses / Procedures Referred By Temo taylor Referred To Contact Radiology. Diagnoses Pre-existing type 2 diabetes mellitus during in third trimester Procedures [facility] Bassem Dhillon MD [address] [place] [address] Referral ID Status Reason Start Date Expiration Date V isits Requested Visits Authorized [id number] Pending Review 07/30/2023 07/29/2024 1 1 Encounter Details Date Type Department Care Team (Latest Contact Info) Description 09/08/2023 11:45 AM CDT - 09/08/2023 11:59 PM CDT Hospital Encounter [facility] [address] [facility] [address] [place] [address] Bassem Pathak MD [address] [place], [place] [address] Mitch Jernigan MD [address] [place] [address] Pre-existing type 2 diabetes mellitus [...] as of this encounter Plan of Treatment Not on file documented as of this encounter Procedures Procedure Name Priority Date/Time Associated Diagnosis Comments [facility] BPP SINGLE Routine 09/08/2023 12:22 PM CDT Pre-existing type 2 diabetes mellitus during in third trimester documented in this encounter Results * [facility] BPP Single (09/08/2023 12:22 PM CDT) Anatomical Region Laterality Modality Ultrasound 09/08/2023 12:0 1 PM CDT Impressions 09/08/2023 12:24 PM CDT IMPRESSION ----- 1) Mild polyhydramnios. 2) BPP is reassuring. Narrative 09/08/2023 12:24 PM CDT ?BPP ----- Pat. Name: GRACESHEBA GAMBLE ? Study Date: ??09/08/2023 12:01pm Pat. NO: ??[id number] ?Referring ??MD: HOMAR MEDRANO Site: ? Rapid Outsole Stitcher: Gemma Pinzon RDMS : ??1985 ?Age: ?? [...] BPP at your office weekly and at [facility] weekly. Return to primary provider for continued care. Thank-you for the opportunity to participate in the care of this patient. If you have questions regarding today's evaluation or if we can be of further service, please contact the [facility]. anomalies may be present but not detected Procedure Note iMtch Jernigan MD - 09/08/2023 BPP ----- Pat. Name: SHEBA WILDER Study Date: 09/08/2023 12:01pm Pat. NO: [id number] Referring MD: HOMAR MEDRANO Site: Rapid Outsole Stitcher: Gemma Pinzon RDMS : 1985 Age: 37 [...] BPP at your office weekly [facility] Return to primary provider for continued care. Thank-you for the opportunity to participate in the care of this patient.If you have questions regarding today's evaluation or if we can be offurther service, please contact the [facility]. anomalies may be present but not detected IMPRESSION ----- 1) Mild polyhydramnios. 2) BPP is reassuring. Bassem Pathak MD [facility] ORDERABLE S documented in this encounter Visit Diagnoses Diagnosis Pre-existing type 2 diabetes mellitus during in third trimester documented in this encounter Care Teams Hydramatic Mechanic Relationship Specialty Start Date End Date Tre Ba MD [address] [place] [address] PCP - General wash box operator 01/15/22 09/19/23 Bassem Pathak MD [address] [place], [place] [address] Assigned OBGYN Provider 08/16/23 documented as of this encounter
--- OUTSIDE RECORDS SUMMARY | 2023-09-23 00:19 | XMS_ITS | Encounter Summary ---
Author Organization [place] Address [facility] [place] [address] Care Team Providers Care Petroleum Refinery Worker Name Role Phone Tre Ba MD Primary Care Provide r Bassem Pathak MD Unavailable [phone] Encounter Details Date Type Department Care Team [...] on file documented as of this encounter Visit Diagnoses Not on filedocumented in this encounter Care Teams Petroleum Refinery Worker Relationship Specialty Start Date End Date Tre Ba MD [address] [place], [place] [address] [address] [place] [address] PCP - General asphalt tamping machine operator 01/15/22 09/19/23 Bassem Pathak MD [address] [facility] [address] [place] [address] Assigned OBGYN Provider 08/16/23 documented as of this encounter
--- OUTSIDE RECORDS SUMMARY | 2023-09-23 00:19 | XMS_ITS | Encounter Summary ---
Author Organization [place] Address [facility] [place] [address] Care Team Providers Care Electronics Utility Worker Name Role Phone Tre Ba MD Primary Care Provide r Bassem Pathak MD Unavailable [phone] Encounter Details Date Type Department Care Team [...] on filedocumented in this encounter Care Teams Electronics Utility Worker Relationship Specialty Start Date End Date Tre Ba MD [address] [place], [place] [address] [address] [place] [address] PCP - General tail puller 01/15/22 09/19/23 Bassem Pathak MD [address] [facility] [address] [place] [address] Assigned OBGYN Provider 08/16/23 documented as of this encounter
--- OUTSIDE RECORDS SUMMARY | 2023-09-23 00:19 | XMS_ITS | Encounter Summary ---
Author Organization [place] Address [address] [place] [address] Care Team Providers Care Chief Nurse Name Role Phone Tre Ba MD Primary Care Provide r Bassem Pathak MD Unavailable [phone] Encounter Details Date Type Department Care Team (Late st Contact Info) Description 09/16/2023 [facility] [address] [place] [address] Cheri Peters LPN Social History Tobacco [...] on filedocumented in this encounter Care Teams Chief Nurse Relationship Specialty Start Date End Date Tre Ba MD [facility] [place] [address] PCP - General steel rule die maker apprentice 01/15/22 09/19/23 Bassem Pathak MD [address] [facility] [address] [place] [address] Assigned OBGYN Provider 08/16/23 documented as of this encounter
--- OUTSIDE RECORDS SUMMARY | 2023-09-23 00:19 | XMS_ITS | Encounter Summary ---
Author Organization [place] Address [facility] [place] [address] Care Team Providers Care Hat Marker Name Role Phone Tre Ba MD Primary Care Provide r Bassem Pathak MD Unavailable Reason for Referral * Diagnostic Imaging Ultrasound (Routine) - Pending Review Specialty Diagnoses / Procedures Referred By Conthenrietta taylor Referred To Contact Radiology. Diagnoses Pre-existing type 2 diabetes mellitus during in third trimester Procedures [facility] US Comprehensive Single F/U Luz Elena Betts MD [address] [facility] [address] [place] [address] Referral ID Status Reason Start Date Expiration Date V isits Requested Visits Authorized [id number] Pending Review 09/02/2023 09/01/2024 1 1 Reason for Visit * Diagnostic Imaging Ultrasound (Routine) - Pending Review Specialty Diagnoses / Procedures Referred By Temo taylor Referred To Contact Radiology. Diagnoses Pre-existing type 2 diabetes mellitus during in third trimester Procedures [facility] US Comprehensive Single F/U Luz Elena Betts MD [address] [place] [address] Referral ID Status Reason Start Date Expiration Date V isits Requested Visits Authorized [id number] Pending Review 09/02/2023 09/01/2024 1 1 Encounter Details Date Type Department Care Team (Latest Contact Info) Description 09/15/2023 1:30 PM CDT - 09/15/2023 11:59 PM CDT Hospital Encounter [facility] [place] [address] [facility] [address] [place] [address] Mitch Jernigan MD [address] [place] [address] Pre-existing type 2 diabetes mellitus [...] Procedure Name Priority Date/Time Associated Diagnosis Comments [facility] US COMPREHENSIVE SINGLE F/U Routine 09/15/2023 2:12 PM CDT Pre-existing type 2 diabetes mellitus during in third trimester documented in this encounter Results * [facility] US Comprehensive Single F/U (09/15/2023 2:12 PM [...] ?Comp Follow Up ----- Pat. Name: CORNELIA WILDERABEL ? Study Date: ??09/15/2023 1:45pm Pat. NO: ??[id number] ?Referring ??MD: HOMAR MEDRANO Site: ? Executive Consultant: Micha Gage RDMS : ??1985 ?Age: ?? 37 ----- INDICATION ----- Type 2 diabetes - on Insulin Advanced maternal age Mild polyhydramnios METHOD ----- Transabdominal ultrasound examination. View: Sufficient. ----- Gonzalez . Number of fetuses: 1 DATING ----- ? Date ?Details ?Gest. age ?BROOKE LMP ?01/03/2023 ?36 w + 3 d ? 10/10/2023 Stated BROKOE ? 36 w + 3 d ? [...] 34w 6d ? Hadlock Weight Calculation: EFW ?3,598 ?g ?98% ? [place]lock EFW (lb,oz) ?8 lb 2 ?oz EFW by ? Hadlock ([id number]) ANATOMY ----- The following structures appear normal: [...] ----- Pat. Name: JACK WILDER Study Date: 09/15/2023 1:45pm Pat. NO: [id number] Referring MD: HOMAR MEDRANO Site: Executive Consultant: Micha Gage RDMS : 1985 Age: 37 [...] EFW (lb,oz) 8 lb 2oz EFW by Hadlock([id number]) ANATOMY ----- The following structures appear normal: [...] BPP is reassuring. Luz Elena Betts MD [facility] ORDERABLE S documented in this encounter Visit Diagnoses Diagnosis Pre-existing type 2 diabetes mellitus during in third trimester documented in this encounter Care Teams Hat Marker Relationship Specialty Start Date End Date Tre Ba MD [facility] [address] [facility] [address] [place], [place] [id number] PCP - General shipping technician 01/15/22 09/19/23 Bassem Pathak MD [address] [facility] [address] [place], [place] [address] Assigned OBGYN Provider 08/16/23 documented as of this encounter
--- OUTSIDE RECORDS SUMMARY | 2023-09-23 00:19 | XMS_ITS | Encounter Summary ---
Author Organization [place] Address [address] [facility] [place] [address] Care Team Providers Care Milk Sampler Name Role Phone Tre Ba MD Primary Care Provide r Bassem Pathak MD Unavailable [phone] Reason for Visit * Reason Comments Ultrasound RL2/BPP-T2DM on insu mani Encounter Details Date Type Department Care Team (Late st Contact Info) Description 09/15/2023 2:00 PM CDT Office Visit [facility] [place] [address] [facility] [address] [place] [address] Mitch Jernigan MD [address] [place] [address] Pre-existing type 2 diabetes mellitus [...] 09/15/2023 2:00 PM CDT Patient presents to [facility] for RL2/BPP at 36w3d due to T2DM on insulin. Positive movement. Denies LOF, vaginal bleeding or cramping/contractions. SBAR given to [facility] MD, see their note in Epic. documented in this encounter Plan of Treatment Not on file documented as of this encounter Visit Diagnoses Diagnosis Pre-existing type 2 diabetes mellitus during in third trimester- Primary Polyhydramnios affecting documented in this encounter Care Teams Milk Sampler Relationship Specialty Start Date End Date Tre Ba MD [address] [place], [place] [address] [address] [place] [address] PCP - General blind eyeletter 01/15/22 09/19/23 Bassem Pathak MD [address] [facility] [address] [place] [address] Assigned OBGYN Provider 08/16/23 documented as of this encounter
--- OUTSIDE RECORDS SUMMARY | 2023-09-23 00:19 | XMS_ITS | Encounter Summary ---
Author Organization [place] Address [address] [facility] [place] [address] Care Team Providers Care Building Mechanic Name Role Phone Tre Ba MD Primary Care Provide r Bassem Pathak MD Unavailable [phone] Reason for Visit * Reason Comments Pre-Eclampsia * Auth/Cert (Routine) Specialty Diagnoses / Procedures Referred By Temo taylor Referred To Contact Obstetrics Diagnoses Maternity*BROOKE: 10/10/23*Preeclampsia Preeclampsia, severe Ur [facility] [address] [place] [address] Referral ID Status Reason Start Date Expiration Date Visits Re quested Visits Authorized [id number] 1 1 Encounter Details Date Type Department Care Team (Latest Contact Info) Description 09/19/2023 11:56 PM CDT - Present Hospital Encounter [facility] [address] [place] [address] Najma Bell MD [address] [place] [id number] Laura Wisdom MD [address] [address] (spontaneous vaginal delivery) (Primary Dx) Social History Tobacco Use Types [...] on file documented as of this encounter Last Filed Vital Signs Vital Sign Reading [...] 7.6 oz) 09/22/2023 12:11 PM CDT Height - - Body Mass Index 35.99 01/20/2022 4:42 PM 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 Anesthesia Post- Follow-Up Note After with Epidural Patient: Sheba Wilder Patient location: Post- floor. Anesthesia type: Epidural Subjective: She does not complain of pruritis at this time. She denies weakness, denies paresthesia, denies difficulties breathing or voiding, denies nausea or vomiting, and denies headache. She is able to ambulate and tolerates regular diet. Objective: Respiratory Function (RR / SpO2 / Airway Patency): Satisfactory Cardiac Function (HR / Rhythm / BP): Satisfactory Strength and sensation lower extremities: Normal Site of epidural insertion: No signs of infection or inflammation. Last Vitals: BP 117/73 (BP Location: Right arm, Patient Position: Semi-Montez's, Cuff Size: Adult Large) Pulse 97 Temp 36.6 ??C (97.8 ??F) (Oral) Resp 18 Wt 94 kg (207 lb 3.2 oz) LMP 01/03/2023 SpO2 97% Unknown BMI 39.15 kg/m?? Assessment and plan: Sheba Wilder is a 37 year old female post- #1. An epidural catheter was successfully inserted at the level of L3-4 without technical challenges. This successfully provided labor analgesia via PCEA pump infusing ropivacaine 0.1% with Fentanyl 2mcg/mL. The patient delivered via and the epidural catheter was removed immediately thereafter by the L&D RN with the catheter tip intact per chart review. At this time, there is no evidence of adverse side effects associated with the insertion or removalof the epidural catheter. If the patient develops new lower extremity paresis or paresthesias; or if there are concerns regarding the insertion site of the catheter, please reach out to the Dept of Anesthesia. Thank you for including us in the care for this patient. Axel Quezada MD Anesthesiology Associated attestation - Vickie Agarwal MD - 09/22/2023 1:44 PM CDT Physician Attestation I agree with the information in this note. Vickie Agarwal MD * Gemma Snyder MD - 09/22/2023 4:19 AM CDT [facility] Post- Progress Note Name: Sheba Wilder S: Patient is resting comfortably. Is happy she's off magnesium. Pain is improving and well controlled. Lochia similar to menses. Has passed flatus, is voiding spontaneously. Ambulating without dizziness/lightheadedness. Tolerating a regular diet without nausea/vomiting. Denies fevers/chills, headache, CP, SOB. Bottlefeeding without difficulty. Happy to be off magnesium, feels so much better. Open to seeing endocrine today. O: Patient Vitals for the past 24 hrs: BP Temp Temp src Pulse Resp SpO2 09/22/23 0821 117/73 97.8 ??F (36.6 ??C) Oral 97 18 -- 09/22/23 0400 115/73 98.8 ??F (37.1 ??C) Oral 91 16 97 % 09/22/23 0300 106/68 -- -- 95 -- 97 % 09/22/23 0228 -- -- -- -- -- 99 % 09/22/23 0200 123/69 -- -- 92 -- 99 % 09/22/23 0153 -- -- -- -- -- 98 % 09/22/23 0100 120/68 -- -- 88 -- 98 % 09/22/23 0000 118/68 98.6 ??F (37 ??C) Oral 91 16 96 % 09/21/23 2300 118/65 -- -- 99 -- 98 % 09/21/23 2200 124/66 -- -- 96 -- 97 % 09/21/23 2100 112/58 -- -- 87 16 97 % 09/21/23 2000 114/65 98.1 ??F (36.7 ??C) Oral 96 16 98 % 09/21/23 1900 128/68 -- -- 100 -- 98 % 09/21/23 1800 125/71 -- -- 90 16 97 % 09/21/23 1700 130/74 -- -- 90 16 97 % 09/21/23 1601 119/70 98 ??F (36.7 ??C) Oral 83 14 97 % 09/21/23 1506 133/86 98.2 ??F (36.8 ??C) Oral 85 16 99 % 09/21/23 1421 130/75 98.4 ??F (36.9 ??C) Oral 96 16 97 % 09/21/23 1305 (!) 133/93 98.2 ??F (36.8 ??C) Oral 91 16 98 % 09/21/23 1249 131/80 -- -- 86 16 98 % 09/21/23 1201 119/70 -- -- 88 16 98 % 09/21/23 1108 134/82 98.2 ??F (36.8 ??C) Oral 84 16 99 % Gen: Resting comfortably, NAD CV: RRR, well perfused Pulm: CTA bilaterally Abd: Soft, appropriately ttp, non-distended. Fundus at 1 below umbilicus, firm and non-tender. Ext: non-tender, 1+ edema to bilateral lower extremities, DTRs 2+ b/l I/O last 3 completed shifts: In: 3972.5 [P.O.:940; I.V.:3032.5] Out: 4710 [Urine:4700; Blood:10] Hgb: Hemoglobin Date Value Ref Range Status 09/22/2023 6.3 (LL) 11.7 - 15.7 g/dL Final Assessment/Plan: Sheba Wilder 37 year old on PPD #1 s/p , c/b shoulder dystocia and PPH. # management Pain: Well-controlled with ibuprofen, tylenol PRN GI: PRN bowel regimen, anti-emetics : Voiding spontaneously, holbrook out after magnesium completed Hgb: Hgb 10.5 > QBL 1000 (TXA, steven, miso, Alondra) > 9.2> 6.3. AM hemoglobin was not available when I saw her this morning. At that time she was asymptomatic from acute blood loss anemia secondary to PPH; will discuss transfusion given hgb <7.0. Rh: Negative, rhogam administered Rubella: immune Feed: Bottle feeding : In room doing well BC: Discussed recommended spacing of 18 months. PPx: Encourage ambulation, IS, SCDs while confined to bed # Pre-eclampsia w/ SF (BP) - Serial BP monitoring - BPs: normotensive overnight - Antihypertensives: Nifedipine 60mg daily. IV antihypertensives PRN for sustained severe range blood pressures (SBP>160, DBP>110 sustained over 15 minutes), none since delivery - Labs: HELLP labs yesterday normal - Daily weights, strict I&Os - s/p 24 hours magnesium. #T2DM - mSSI while inpatient - Endocrinology consult, new diagnosis of likely type 2 DM in . Glucose levels since delivery persistently elevated. Medically Ready for Discharge: Anticipated in 2-4 Days Kayden Lee MD Obstetrics and Gynecology, PGY-2 09/22/2023 4:20 AM I agree with note as edited above. Gemma Snyder MD Reviewed plan for transfusion with patient, she reported feeling SOB and tired when up out of bed. Reviewed transfusion consent and plan was to transfuse 1 unit pRBcs, repeat hgb in the am. Gemma Snyder MD * Kayden Lee MD - 09/21/2023 6:20 PM CDT [facility] Magnesium Check Note S: Patient is tolerating magnesium well, though states it makes her tired. She endorses difficulty focusing her eyes at a distance but no other visual changes, flashes in vision, or visual distortion. Denies headache, chest pain, shortness of breath, RUQ or epigastric pain, change in severity of edema O: Patient Vitals for the past 4 hrs: BP Temp Temp src Pulse Resp SpO2 09/21/23 1800 125/71 -- -- 90 16 97 % 09/21/23 1700 130/74 -- -- 90 16 97 % 09/21/23 1601 119/70 98 ??F (36.7 ??C) Oral 83 14 97 % 09/21/23 1506 133/86 98.2 ??F (36.8 ??C) Oral 85 16 99 % Gen: Laying comfortably in bed, tired appearing CV: RRR, no murmurs, rubs, gallops Pulm: CTAB, no wheezes or crackles Abd: Soft, non-tender Ext: Brachioradialis reflexes 2+ b/l, 1+ patellar reflexes bilaterally, 1+ LE edema bilaterally, noclonus I/O: I/O last 3 completed shifts: In: 2323.17 [P.O.:480; I.V.:1843.17] Out: 3230 [Urine:2150; Blood:1080] 1.86 mL/kg/hr A/P: Sheba Wilder is a 37 year old on PPD#0 s/p , with complicated by preeclampsia with severe features. Preeclampsia with severe features - BP: largely normotensive, some mild ranges throughout the day and overnight - UOP: Adequate at 1.86 ml/kg/hr - Cr to 0.96 this AM, UOp adequate. Pending repeat Cr - Symptoms: Denies - HELLP labs in the AM or sooner prn - Mag sulfate for seizure prophylaxis: 2g/hr, off at 0330 - Next clinical mag check at 2230 : routine care Kayden Lee MD Obstetrics and Gynecology, PGY-2 09/21/2023 6:27 PM * Brittani Gomez MD - 09/21/2023 8:24 AM CDT Brief MICRO COMPUTER SPECIALIST Note Reevaluated Alondra at bedside. There was approximately 300 mL in the cannister at 5 AM, and this was unchanged 1 hour later. The device was taken off suction and the balloon deflated at ~6:15 AM. On reevaluation 30 minutes later, there was no significant bleeding. Fundus firm at umbilicus. The Alondra was removed without difficulty at ~6:50 AM. Ivis Gomez MD MICRO COMPUTER SPECIALIST PGY-3 09/21/2023 8:25 AM * Najma Orellana DO - 09/21/2023 8:21 AM CDT [facility] Magnesium Check Note S: Patient is feeling well, albeit tired after delivery. States I'm not feeling dizzy, but feel like I have no energy. When asked about vision changes she states she feels more woozy but no spots in her vision. Denies headache, chest pain, shortness of breath, RUQ or epigastric pain. O: Patient Vitals for the past 4 hrs: BP Temp Temp src Resp SpO2 09/21/23 0736 132/70 97.7 ??F (36.5 ??C) Oral 16 98 % 09/21/23 0710 127/61 -- -- -- 98 % 09/21/23 0630 130/70 -- -- 16 99 % 09/21/23 0530 (!) 144/68 -- -- 20 99 % 09/21/23 0515 127/69 -- -- 20 98 % 09/21/23 0500 114/56 98.6 ??F (37 ??C) Oral 20 98 % 09/21/23 0445 119/60 -- -- 20 98 % 09/21/23 0430 129/68 -- -- 20 97 % Gen: Laying comfortably in bed, tired appearing CV: RRR, no murmurs Pulm: CTAB, no wheezes or crackles Abd: Soft, non-tender Ext: Brachioradialis reflexes 2+ b/l, 1+ LE edema bilaterally I/O: I/O last 3 completed shifts: In: 360 [P.O.:360] Out: 3370 [Urine:2300; Blood:1070] A/P: Sheba Wilder is a 37 year old on PPD# 0 s/p , with complicated by preeclampsia with severe features. Preeclampsia with severe features - BP: largely normotensive, some mild ranges overnight - UOP: low UOP in active stage of labor that has since improved and is now adequate, strict Is/Os. - Cr to 0.96 this AM, will closely monitor UOP and plan to recheck Cr later this afternoon - Symptoms: Denies - HELLP labs in the AM or sooner prn - Mag sulfate for seizure prophylaxis: 2g/hr - Next clinical mag check at 1230 : routine care Najma Orellana DO, PGY-2 [facility] September 21, 2023 8:21 AM * Alisa Lubin RN - 09/21/2023 7:11 AM CDT Attempted to assist pt to the bathroom to void with standby assist, but pt felt dizzy and nauseous when sitting. Helped pt to lie back down, now feeling much better. Pt requested bed mistry, currently attempting to void. * Alisa Lubin RN - 09/21/2023 6:19 AM CDT Note delayed due to patient care of viable Male with Dr. Snyder in attendance. NICU and Nursery RN Negin Akins present. had no tone or respiratory effort, so cord was clamped and cut and baby brought to warmer for NICU assessment. See NICU note in delivery summary. Apgars 3/3/8/8. Placenta delivered without complications, pitocin bolused. Tocolytics included Hemabate, TXA, and misoprostol. Alondra inserted, currently still in place. 1st degree laceration, repairs done. Anali cares provided. Mother and baby in stable condition. * Brittani Gomez MD - 09/21/2023 2:20 AM CDT [facility] Labor Progress / Magnesium Check Note S: Patient is feeling very tired. Denies headache, vision changes, chest pain, SOB, RUQ pain. O: Patient Vitals for the past 4 hrs: BP Temp Temp src Resp SpO2 09/21/23 0145 128/77 98.1 ??F (36.7 ??C) Oral 14 99 % 09/21/23 0039 (!) 146/80 98 ??F (36.7 ??C) Oral 18 96 % 09/20/23 2338 (!) 145/85 98.2 ??F (36.8 ??C) Oral 18 97 % Gen: NAD, tired appearing CV: RRR Resp: Non-labored breathing Abd: Soft, non-tender Neuro: 2+ Achilles, brachioradialis, and biceps reflexes bilaterally SVE: 9/80/-1 FHT: Baseline 130, minimal to moderate variability, + accelerations, intermittent early decelerations [place]: 3-4 contractions in 10 minutes I/O: I/O last 3 completed shifts: In: 1371 [P.O.:120; I.V.:751; IV Piggyback:500] Out: 2625 [Urine:2625] A/P: Sheba Wilder is a 37 year old at 37w1d by LMP, admitted for IOL for preeclampsia with severe features due to BP/headache. Preeclampsia with severe features - BP: intermittent SRBP which responds to labetalol, continue to monitor closely - D#2 nifed 60 - UOP: 0.27 mL/kg/hr over last 4 hours, suspect most likely obstructive due to prolonged active labor; will continue to trend labs - Symptoms: None current - HELLP labs: wnl other than platelets 116K; repeat pending this AM - Mag sulfate for seizure prophylaxis: 2g/hr - Next clinical mag check at 0600 Induction of Labor: - Continue pitocin, currently 26 mU/min - IUPC placed - FWB: Category II FHT for periods of minimal variability, but overall reassuring with return to moderate variability at times and accels present. Continuous EFM, [place]. GBS Positive - Adequately treated, continue PCN T2DM - PATTERNMAKER PRESSURE CAST Lantus, Novolog held - Continue q1h BG and insulin gtt - Shoulder dystocia precautions discussed 09/19 Ivis Gomez MD MICRO COMPUTER SPECIALIST PGY-3 09/21/2023 2:20 AM * Brittani Gomez MD - 09/21/2023 12:00 AM CDT [facility] Labor Progress Note S: Contractions are feeling more intense. O: Patient Vitals for the past 4 hrs: BP Temp Temp src Resp SpO2 09/20/23 2338 (!) 145/85 98.2 ??F (36.8 ??C) Oral 18 97 % 09/20/232209 (!) 146/92 -- -- -- -- 09/20/232204 (!) 143/88 -- -- -- 96 % 09/20/232199 (!) 140/89 -- -- -- 97 % 09/20/232154 132/77 -- -- -- 97 % 09/20/232149 (!) 143/81 -- -- -- 97 % 09/20/232144 (!) 143/84 -- -- -- 97 % 09/20/232139 (!) 150/86 -- -- 16 96 % 09/20/232134 130/81 -- -- -- 96 % 09/20/232129 (!) 140/79 -- -- -- 97 % 09/20/232119 (!) 143/78 -- -- -- -- 09/20/232117 136/75 -- -- -- -- 09/20/232115 (!) 147/84 -- -- -- -- 09/20/232113 (!) 143/82 -- -- -- -- 09/20/232111 139/80 -- -- -- 97 % 09/20/232108 (!) 146/83 98.6 ??F (37 ??C) Oral 16 98 % 09/20/232049 (!) 147/84 -- -- 18 97 % 09/20/232024 -- -- -- -- 98 % 09/20/232019 (!) 149/87 -- -- -- 98 % SVE: FHT: Baseline 130, minimal to moderate variability, + accelerations, intermittent early and late decelerations [place]: 3-4 contractions in 10 minutes I/O: I/O last 3 completed shifts: In: 1371 [P.O.:120; I.V.:751; IV Piggyback:500] Out: 2625 [Urine:2625] A/P: Sheba Wilder is a 37 year old at 37w1d by LMP, admitted for IOL for preeclampsia with severe features due to BP/headache. Preeclampsia with severe features - BP: intermittent SRBP which responds to labetalol, continue to monitor closely - D#2 nifed 60 - UOP: 0.39 mL/kg/hr over last 5.5 hours documented, will continue to closely monitor - Symptoms: none current - HELLP labs: wnl other than platelets 116K - Mag sulfate for seizure prophylaxis: 2g/hr - Next clinical mag check at 0030 Induction of Labor: - Continue pitocin, currently 24 mU/min - IUPC placed - FWB: Category II FHT for periods of minimal variability, occasional late decels (improved with repositioning). Continuous EFM, [place]. GBS Positive - Adequately treated, continue PCN T2DM - PATTERNMAKER PRESSURE CAST Lantus, Novolog held - Continue q1h BG and insulin gtt - Shoulder dystocia precautions discussed 09/19 Ivis Gomez MD MICRO COMPUTER SPECIALIST PGY-3 09/21/2023 12:15 AM * Brittani Gomez MD - 09/20/2023 11:03 PM CDT [facility] Labor Progress Note S: Still feeling a lot of pressure. O: Patient Vitals for the past 4 hrs: BP Temp Temp src Resp SpO2 09/20/232209 (!) 146/92 -- -- -- -- 09/20/232204 (!) 143/88 -- -- -- 96 % 09/20/232199 (!) 140/89 -- -- -- 97 % 09/20/232154 132/77 -- -- -- 97 % 09/20/232149 (!) 143/81 -- -- -- 97 % 09/20/232144 (!) 143/84 -- -- -- 97 % 09/20/232139 (!) 150/86 -- -- 16 96 % 09/20/232134 130/81 -- -- -- 96 % 09/20/232129 (!) 140/79 -- -- -- 97 % 09/20/232119 (!) 143/78 -- -- -- -- 09/20/232117 136/75 -- -- -- -- 09/20/232115 (!) 147/84 -- -- -- -- 09/20/232113 (!) 143/82 -- -- -- -- 09/20/232111 139/80 -- -- -- 97 % 09/20/232108 (!) 146/83 98.6 ??F (37 ??C) Oral 16 98 % 09/20/232049 (!) 147/84 -- -- 18 97 % 09/20/232024 -- -- -- -- 98 % 09/20/232019 (!) 149/87 -- -- -- 98 % 09/20/231949 (!) 159/84 98.7 ??F (37.1 ??C) Oral 16 97 % 09/20/231939 (!) 144/82 -- -- 15 98 % SVE: 6/70/-2 FHT: Baseline 130, minimal to moderate variability, + accelerations, intermittent early decelerations [place]: 3-4 contractions in 10 minutes I/O: I/O last 3 completed shifts: In: 1371 [P.O.:120; I.V.:751; IV Piggyback:500] Out: 2625 [Urine:2625] A/P: Sheba Wilder is a 37 year old at 37w1d by LMP, admitted for IOL for preeclampsia with severe features due to BP/headache. Preeclampsia with severe features - BP: intermittent SRBP which responds to labetalol, continue to monitor closely - D#2 nifed 60 - UOP: 0.39 mL/kg/hr, will continue to closely monitor - Symptoms: none current - HELLP labs: wnl other than platelets 116K - Mag sulfate for seizure prophylaxis: 2g/hr - Next clinical mag check at 0030 Induction of Labor: - Continue pitocin, currently 22 mU/min - IUPC placed - FWB: Intermittently category II for periods of minimal variability, accelerations present. Continuous EFM, [place]. GBS Positive - Adequately treated, continue PCN T2DM - PATTERNMAKER PRESSURE CAST Lantus, Novolog held - Continue q1h BG and insulin gtt - Shoulder dystocia precautions discussed 09/19 Ivis Gomez MD MICRO COMPUTER SPECIALIST PGY-3 09/20/2023 11:03 PM * Brittani Gomez MD - 09/20/2023 9:35 PM CDT [facility] Labor Progress Note S: Still feeling a lot of pressure. Epidural was just bolused and she is more comfortable. O: Patient Vitals for the past 4 hrs: BP Temp Temp src Resp SpO2 09/20/232119 (!) 143/78 -- -- -- -- 09/20/232117 136/75 -- -- -- -- 09/20/232115 (!) 147/84 -- -- -- -- 09/20/232113 (!) 143/82 -- -- -- -- 09/20/232111 139/80 -- -- -- 97 % 09/20/232108 (!) 146/83 98.6 ??F (37 ??C) Oral 16 98 % 07/28/24 2050 (!) 147/84 -- -- 18 97 % 09/20/232024 -- -- -- -- 98 % 09/20/232019 (!) 149/87 -- -- -- 98 % 09/20/231949 (!) 159/84 98.7 ??F (37.1 ??C) Oral 16 97 % 09/20/23 194 (!) 144/82 -- -- 15 98 % 09/20/23 190 (!) 157/91 -- -- -- 98 % 09/20/231849 (!) 172/85 -- -- -- 99 % 09/20/231834 -- -- -- -- 99 % 09/20/231829 (!) 150/89 -- -- -- 97 % 09/20/231814 (!) 149/83 -- -- -- 98 % 09/20/23 175 (!) 143/88 -- -- -- 97 % 09/20/23 174 (!) 144/89 -- -- -- 98 % SVE: 5/70/-2, IUPC placed FHT: Baseline 135, minimal to moderate variability, + accelerations, early decelerations [place]: 3-4 contractions in 10 minutes I/O: I/O last 3 completed shifts: In: 1371 [P.O.:120; I.V.:751; IV Piggyback:500] Out: 1874 [Urine:1874] A/P: Sheba Wilder is a 37 year old at 37w1d by LMP, admitted for IOL for preeclampsia with severe features due to BP/headache Preeclampsia with severe features - BP: intermittent SRBP which responds to labetalol, continue to monitor closely - D#2 nifed 60 - UOP: 1.3 mL/kg/hr, adequate - Symptoms: none current - HELLP labs: wnl other than platelets 116K - Mag sulfate for seizure prophylaxis: 2g/hr - Next clinical mag check at 0030 Induction of Labor: - Continue pitocin, currently 22 mU/min - IUPC placed - FWB: Category II for periods of minimal variability, accelerations present. Continuous EFM, [place]. GBS Positive - Adequately treated, continue PCN T2DM - PATTERNMAKER PRESSURE CAST Lantus, Novolog held - Continue q1h BG and insulin gtt - Shoulder dystocia precautions discussed 09/19 Ivis Gomez MD MICRO COMPUTER SPECIALIST PGY-3 09/20/2023 9:35 PM * Gemma Snyder MD - 09/20/2023 8:32 PM CDT OB Staff Progress Note- Mag check S: Patient resting on side with peanut ball. Feels like maybe epidural isn't working as well anymore. Feeling a lot of pressure that comes and goes in the pelvis. Denies MARTIN or vision changes, OK withrepeat lab draw. O: Patient Vitals for the past 4 hrs: BP Temp Temp src Resp SpO2 09/20/23 1940 (!) 144/82 -- -- 15 98 % 09/20/23 1900 (!) 157/91 -- -- -- 98 % 09/20/23 1850 (!) 172/85 -- -- -- 99 % 09/20/23 1835 -- -- -- -- 99 % 09/20/23 1830 (!) 150/89 -- -- -- 97 % 09/20/23 1815 (!) 149/83 -- -- -- 98 % 09/20/23 1755 (!) 143/88 -- -- -- 97 % 09/20/23 1745 (!) 144/89 -- -- -- 98 % 09/20/23 1735 (!) 151/81 -- -- -- 96 % 09/20/23 1730 (!) 139/90 -- -- 14 97 % 09/20/23 1725 -- -- -- 12 97 % 09/20/23 1720 -- -- -- 14 97 % 09/20/23 1715 138/84 97.9 ??F (36.6 ??C) Oral 16 97 % 09/20/23 1705 (!) 154/88 -- -- -- 96 % 09/20/23 1655 (!) 162/94 -- -- -- 98 % 09/20/23 1645 139/89 -- -- 10 97 % 09/20/23 1635 (!) 143/82 -- -- 10 98 % ]Gen'l: no distress CV: RRR Lungs: CTA bilaterally Ext: 1+ DTRs bilaterally, upper and lower extremities. FHT: 130 with moderate variability, + accels, no decels [place]: 4 in 10 minutes, occasional coupling of contractions Last exam at 1900 5/50/-2 Assessment/Plan: 37 yo at 37w1d IOL for preE with severe features - Continue close monitoring of BP and IV labetalol for sustained severe range BP. Also on nifedipine 60 mg daily, received dose this evening - repeat HELLP labs pending, last notable for plts 102K - continue magnesium, no sign/symptom of mag toxicity at this time. - recommend repeat SVE, patient prefers to wait until feeling more comfortable with epidural. - Category 1 FHTs. - GBS +, adequate PCN treatment - Insulin gtt for type 2 DM Gemma Snyder MD * Brittani Gomez MD - 09/20/2023 7:05 PM CDT [facility] Labor Progress Note S: Feeling more pressure. O: Patient Vitals for the past 4 hrs: BP Temp Temp src Resp SpO2 09/20/23 1850 (!) 172/85 -- -- -- 99 % 09/20/23 1815 (!) 149/83 -- -- -- 98 % 09/20/23 1755 (!) 143/88 -- -- -- 97 % 09/20/23 1745 (!) 144/89 -- -- -- 98 % 09/20/23 1735 (!) 151/81 -- -- -- 96 % 09/20/23 1730 (!) 139/90 -- -- 14 97 % 09/20/23 1725 -- -- -- 12 97 % 09/20/23 1720 -- -- -- 14 97 % 09/20/23 1715 138/84 97.9 ??F (36.6 ??C) Oral 16 97 % 09/20/23 1705 (!) 154/88 -- -- -- 96 % 09/20/23 1655 (!) 162/94 -- -- -- 98 % 09/20/23 1645 139/89 -- -- 10 97 % 09/20/23 1635 (!) 143/82 -- -- 10 98 % 09/20/23 1620 (!) 188/90 -- -- 10 98 % 09/20/23 1615 (!) 161/85 -- -- 14 98 % 09/20/23 1604 (!) 161/84 -- -- -- -- 09/20/23 1520 -- -- -- 22 99 % SVE: /-2 FHT: Baseline 125, moderate variability, + accelerations, no decelerations [place]: 3-4 contractions in 10 minutes I/O: I/O last 3 completed shifts: In: 1371 [P.O.:120; I.V.:751; IV Piggyback:500] Out: 1874 [Urine:1874] A/P: Sheba Wilder is a 37 year old at 37w1d by LMP, admitted for IOL for preeclampsia with severe features due to BP/headache Preeclampsia with severe features - BP: intermittent SRBP which responds to labetalol, continue to monitor closely - D#2 nifed 60 - UOP: 1.3 mL/kg/hr, adequate - Symptoms: none current - HELLP labs: wnl other than platelets 102K - Mag sulfate for seizure prophylaxis: 2g/hr - Next clinical mag check at 2100 Induction of Labor: - Continue pitocin, currently 18 mU/min - Consider IUPC with next exam if unchanged - FWB: Category I FHT, reactive. Continuous EFM, [place]. GBS Positive - Adequately treated, continue PCN T2DM - PATTERNMAKER PRESSURE CAST Lantus, Novolog held - Continue q1h BG and insulin gtt - Shoulder dystocia precautions discussed 09/19 Ivis Gomez MD MICRO COMPUTER SPECIALIST PGY-3 09/20/2023 7:07 PM * Sandhya Guzman MD - 09/20/2023 5:11 PM CDT [facility] Magnesium Check Note / Labor Progress Note S: Doing okay. Feeling very tired but otherwise no complaints. No current headache. Denies vision change, chest pain, SOB. Not feeling contractions at all with epidural in place. O: Patient Vitals for the past 4 hrs: BP Resp SpO2 09/20/23 1645 139/89 -- 97 % 09/20/23 1635 (!) 143/82 -- 98 % 09/20/23 1620 (!) 188/90 10 98 % 09/20/23 1615 (!) 161/85 -- 98 % 09/20/23 1604 (!) 161/84 -- -- 09/20/23 1520 -- 22 99 % 09/20/23 1505 (!) 141/78 -- 97 % 09/20/23 1502 -- -- 97 % 09/20/23 1352 -- -- 99 % 09/20/23 1349 (!) 144/83 -- -- 09/20/23 1319 (!) 140/80 -- -- 09/20/23 1317 -- -- 97 % Gen: Resting comfortably CV: RRR, no murmurs Pulm: CTAB, no wheezes or crackles Abd: Gravid, soft, non-tender Ext: Patellar reflexes 2+ b/l, 2+ LE edema b/l to mid-calf SVE: 5/50/-2, AROM for clear fluid FHT: Baseline 120, moderate variability, + accelerations, no decelerations [place]: 3-4 contractions in 10 minutes I/O: I/O last 3 completed shifts: In: 1371 [P.O.:120; I.V.:751; IV Piggyback:500] Out: 1874 [Urine:1874] A/P: Sheba Wilder is a 37 year old at 37w1d by LMP, admitted for IOL for preeclampsia with severe features due to BP/headache Preeclampsia with severe features - BP: intermittent SRBP which responds to labetalol, continue to monitor closely - D#2 nifed 60, will give dose now given recent SRBP - UOP: adequate - Symptoms: none current - HELLP labs: wnl other than platelets 102K - Mag sulfate for seizure prophylaxis: 2g/hr - Next clinical mag check at 2100 - pt with significant fatigue so will check mag level now. Low c/f toxicity given 2+ reflexes and otherwise reassuring exam. Induction of Labor: - Continue pit - AROM PRN - FWB: Category I FHT, reactive. Continuous EFM, [place]. GBS Positive - adequately treated - continue PCN T2DM - PATTERNMAKER PRESSURE CAST lantus, novolog held - start q1h BG, initiate insulin gtt prn (ordered) - Shoulder dystocia precautions discussed 09/19 Sandhya Guzman MD MICRO COMPUTER SPECIALIST PGY-3 09/20/2023 5:12 PM * Laura Wisdom MD - 09/20/2023 1:46 PM CDT [facility] Magnesium Check Note / Labor Progress Note S: Patient is feeling well. Denies headache, vision changes/spots in vision, chest pain, shortness of breath, RUQ or epigastric pain. Contraction pain is well controlled with epidural. Still has goodsensation and movement of her bl lower extremities. O: Patient Vitals for the past 4 hrs: BP Temp Temp src Resp SpO2 09/20/23 1319 (!) 140/80 -- -- -- -- 09/20/23 1317 -- -- -- -- 97 % 09/20/23 1248 137/78 -- -- -- -- 09/20/23 1247 -- -- -- -- 98 % 09/20/23 1217 -- -- -- -- 98 % 09/20/23 1216 135/76 -- -- -- -- 09/20/23 1202 (!) 142/84 -- -- -- 97 % 09/20/23 1200 -- 98.1 ??F (36.7 ??C) Oral 15 -- 09/20/23 1146 (!) 141/86 -- -- -- -- 09/20/23 1112 -- -- -- -- 96 % 09/20/23 1110 (!) 141/79 -- -- -- -- 09/20/23 1105 (!) 140/79 -- -- -- -- 09/20/23 1101 139/80 -- -- -- -- 09/20/23 1055 137/82 -- -- -- -- 09/20/23 1052 -- -- -- -- 97 % 09/20/23 1050 (!) 146/88 -- -- -- -- 09/20/23 1045 135/80 -- -- -- -- 09/20/23 1042 (!) 143/87 -- -- -- 98 % 09/20/23 1035 (!) 147/82 -- -- -- -- 09/20/23 1032 -- -- -- -- 97 % 09/20/23 1030 (!) 149/85 -- -- -- -- 09/20/23 1025 (!) 150/87 -- -- -- -- 09/20/23 1022 (!) 144/86 -- -- -- 97 % 09/20/23 1017 -- -- -- -- 98 % 09/20/23 1015 (!) 148/89 -- -- -- -- 09/20/23 1012 -- -- -- -- 97 % 09/20/23 1010 (!) 148/87 -- -- -- -- 09/20/23 0958 (!) 170/91 -- -- -- -- 09/20/23 0957 -- -- -- -- 98 % 09/20/23 0952 (!) 172/94 -- -- -- 98 % Gen: Resting comfortably CV: RRR, no murmurs Pulm: CTAB, no wheezes or crackles Abd: Gravid, soft, non-tender Ext: Patellar reflexes 2+ b/l, 1 beat ankle clonus b/l, 2+ LE edema b/l to mid-calf SVE: Deferred FHT: Baseline 120, moderate variability, + accelerations, no decelerations [place]: 3-4 contractions in 10 minutes I/O: I/O last 3 completed shifts: In: 1251 [I.V.:751; IV Piggyback:500] Out: 425 [Urine:425] A/P: Sheba Wilder is a 37 year old at 37w1d by LMP, admitted for IOL for preeclampsia with severe features due to BP/headache Preeclampsia with severe features - BP: continued mild range, no severe range - UOP: 50 cc/hr. Strict Is/Os. - Symptoms: Reports improvement of headache with Tylenol - HELLP labs: wnl other than platelets 102K - Mag sulfate for seizure prophylaxis: 2g/hr - Next clinical mag check at 1700 Induction of Labor: - Continue pit - AROM PRN - FWB: Category I FHT, reactive. Continuous EFM, [place]. GBS Positive - Start Penicillin T2DM - Insulin drip for active labor - QID glucose monitoring - Shoulder dystocia precautions provided 09/19 Rody Arce MD PGY-1 09/20/23 1:46 PM I have seen and examined the patient without the resident. I have reviewed, edited, and agree with the note. My findings are:not active labor yet, EFM cat I MD Laura Meraz MD * Rody Arce MD - 09/20/2023 9:20 AM CDT [facility] Magnesium Check Note / Labor Progress Note S: Patient is feeling well. Denies headache, vision changes/spots in vision, chest pain, shortness of breath, RUQ or epigastric pain. Positive contractions. O: Patient Vitals for the past 4 hrs: BP SpO2 Weight 09/20/23 0847 -- 96 % -- 09/20/23 0842 (!) 150/83 96 % -- 09/20/23 0812 -- 97 % -- 09/20/23 0811 (!) 142/86 -- -- 09/20/23 0741 (!) 135/92 -- -- 09/20/23 0737 -- 97 % -- 09/20/23 0709 (!) 147/80 -- -- 09/20/23 0705 132/81 99 % -- 09/20/23 0700 133/81 97 % -- 09/20/23 0655 132/80 97 % -- 09/20/23 0650 134/81 95 % -- 09/20/23 0645 130/75 96 % -- 09/20/23 0640 133/76 97 % -- 09/20/23 0633 132/72 97 % -- 09/20/23 0627 132/76 98 % -- 09/20/23 0623 132/76 98 % -- 09/20/23 0621 133/77 -- -- 09/20/23 0619 133/78 -- -- 09/20/23 0617 134/77 99 % -- 09/20/23 0615 139/82 -- -- 09/20/23 0600 (!) 150/86 -- -- 09/20/23 0540 (!) 149/88 98 % 94 kg (207 lb 3.2 oz) Gen: Resting comfortably CV: RRR, no murmurs Pulm: CTAB, no wheezes or crackles Abd: Gravid, soft, non-tender Ext: Patellar reflexes 2+ b/l, absent clonus b/l, 2+ LE edema b/l to mid-calf SVE: 4/30%/-2, bloody show, membranes intact, Holbrook out FHT: Baseline 130, moderate variability with brief periods of minimal variability, + accelerations,no decelerations [place]: 2-4 contractions in 10 minutes I/O: I/O last 3 completed shifts: In: 1251 [I.V.:751; IV Piggyback:500] Out: 425 [Urine:425] A/P: Sheba Wilder is a 37 year old at 37w1d by LMP, admitted for IOL for preeclampsia with severe features due to BP/headache Preeclampsia with severe features - BP: mild range, no severe range - UOP: 53 cc/hr. Strict Is/Os. - Symptoms: Reports continued headache - will trial Tylenol - HELLP labs: wnl other than platelets 102K - Mag sulfate for seizure prophylaxis: 2g/hr - Next clinical mag check at 1330 Induction of Labor: - Start Pitocin after penicillin initiated - AROM after 4 hours PCN - FWB: Category I FHT, reactive. Continuous EFM, [place]. GBS Positive - Start Penicillin T2DM - Insulin drip for active labor - QID glucose monitoring - Shoulder dystocia precautions provided Rody Arce MD PGY-1 09/20/23 9:20 AM documented in this encounter H&P Notes * Najma Bell MD - 09/20/2023 2:00 AM CDT [facility] OB HISTORY AND PHYSICAL Patient: Sheba Wilder Date of : 1985 HPI: Sheba Wilder is a 37 year old at 37w1d by LMP who presents as a transfer care from referral due to new diagnosis of severe preeclampsia. Sheba has presented to [facility] for induction of labor in the setting of type 2 diabetes. At the start of her induction of labor she was found to have sustained severe range blood pressures requiring a full round of IV short acting labetalol and 2 doses of hydralazine 10 mg. Due to concern for possible need for nicardipine drip, recommendations were made to transfer patient to [facility] in anticipation for possible ICU admission. She was initiated on nifedipine 60 mg prior to transfer and her blood pressures were stabilized in the low mild ranges. On arrival patient reports that she has had a persistent headache over the past 3 to 4 days. Initially she was able to treat her symptoms with one-time dose of 1 g Tylenol, however today her symptomshave been persistent despite receiving Tylenol at [facility]. Her headache is primarily located on the left frontal temporal. She denies any associating vision changes. She denies chest pain, shortness of breath, or right upper quadrant/epigastric pain. However she does report increased swelling ofher face arms and legs over the past week. She continued to have persistent contractions since receiving the news apostle at 6 PM while at [facility]. She otherwise denies LOF and vaginal bleeding. Endorses good movement. notable for: T2DM, PATTERNMAKER PRESSURE CAST Lantus 20u qAM, NovoLog 3u/3u/3u Hx GDM x 2 prior pregnancies Severe preeclampsia, newly diagnosed Hx gHTN LGA fetus, EFW 98th percentile, AC 99th percentile H/o macrosomia RIVER, no meds AMA Obesity, BMI 39 She was initially diagnosed with gestational diabetes and 2 prior pregnancies (2012, 2014). She initially was diagnosed with gestational hypertension in her last (2014). She also experienced a hemorrhage in her second in 2009 necessitating a blood transfusion. Denies history of shoulder dystocia or eclampsia. No history of asthma. OBGYN History: OB History Para Term AB Living 9 5 5 0 3 5 SAB IAB Ectopic Multiple Live Births 3 0 0 0 5 # Outcome Date GA Lbr Bj/2nd Weight Sex Type Anes PTL Lv 9 Current 8 Term 2012 ARVIN 7 Term 2011 ARVIN 6 Term 2009 ARVIN 5 Term 04/28/03 40w0d 36:00 4.791 kg (10 lb 9 oz) F Vag-Spont ARVIN Comments: [place] 4 SAB SAB 3 SAB SAB 2 SAB SAB 1 Term ARVIN - Last Pap: ASC-H (September 2021); Colpo: Benign (Oct 2021) Lab Results: Lab Results Component Value Date Negative 09/20/2023 HGB 10.2 (L) 09/20/2023 GBS Status: Positive Patient Active Problem List Diagnosis Date Noted Preeclampsia, severe 09/19/2023 Priority: Medium Past Medical History No past medical history on file. Past Surgical History Past Surgical History: Procedure Laterality Date DILATION AND CURETTAGE DILATION AND CURETTAGE SUCTION N/A 01/20/2022 Procedure: SUCTION DILATION AND CURETTAGE; Surgeon: Jarvis Naqvi MD; Location: [facility] Main OR TUBOPLASTY Bilateral 10/03/2021 Procedure: BILATERAL TUBAL ANASTOMOSIS; Surgeon: Tre Ba MD; Location: [place] Main OR Family History No family history on file. Social History Social History Tobacco Use Smoking status: Never Smokeless tobacco: Never Substance Use Topics Alcohol use: Not Currently Medications Medications Prior to Admission Medication Sig Dispense Refill Last Dose acetaminophen (TYLENOL) 325 MG tablet Take 3 tablets (975 mg) by mouth every 6 hours as needed for mild pain 50 tablet 0 ibuprofen (ADVIL/MOTRIN) 800 MG tablet Take 1 tablet (800 mg) by mouth every 6 hours as needed for other (mild and/or inflammatory pain) 30 tablet 0 Allergies No Known Allergies REVIEW OF SYSTEMS: A 10 point review of systems was completed and was negative other than as noted in the HPI. PHYSICAL EXAM BP (!) 135/92 Temp 97.8 ??F (36.6 ??C) (Oral) Resp 18 Wt 94 kg (207 lb 3.2 oz) LMP 01/03/2023 SpO2 97% BMI 39.15 kg/m?? Gen: NAD CV: RRR, nl S1/S2, no murmurs/clicks/gallops Lungs: CTAB, non-labored breathing Abd: Gravid, non-tender, non-distended Ext: +1 peripheral extremity edema SVE: 60/-3 - Exam chaperoned by RN Membranes: Intact Presentation: Cephalic by BSUS. Estimated Weight: #8.5 FHT: Monitoring External FHT: Baseline 120 bpm; mod variability; + accels; no decelerations TOCO: 3-4 contractions in 10 minutes Studies: T&S, CBC, RPR Assessment & Plan: 37 year old at 37w1d by LMP who initially presented to [facility] for IOL for poorly controlled T2DM. However ultimately was transferred due to new diagnosis of severepreeclampsia requiring multiple rounds of short acting antihypertensives and potential need for higher level care. # Severe Preeclampsia, newly diagnosed # Hx gTHN in prior x1 Found to have elevated pressures immediately after initiation of cervical ripening. Severe range blood pressures un responsive to Labetalol algorithm and portion of hydralazine algorithm. Given the difficulty controlling pressures patient transferred to [facility] an anticipation for possible need for nicardipine gtt and ICU admission. - SSR BP x1 one admission. Will restart IV labetalol algorithm -- Did receive a total of 160 mg Labetalol at [facility] (Max: 300 mg). Will transition to Hydralazine, Nifedipine if maxed out - Continue serial BP monitoring - Labs: B/l labs normal. Platelets 104 o/w HELLP labs wnl 09/19 - Begin magnesium sulfate seizure ppx- 4g loading dose, followed by 2g per hour maintenance -- Mg level 6hrs after initiation of therapy -- Mg checks q4h -- Will continue for 24hrs post-delivery - Started on Nifedipine 60 mg qPM at [facility]. Will increase prn - Sx: Persistent MARTIN s/p tylenol. Will try Reglan/Benadryl # Type 2 Diabetes, peristently abnormal blood glucose levels # Large for Gestational Age # Mild Polyhydramnios Currently insulin controlled on Lantus 20U q AM, Novolog 3/3/3 per meals. Approximately 50% blood sugars elevated above goal levels despite continual titration of medications. She follows with [facility] endocrinology for management. ALEX 27.7 cm - Hb A1c at 25 weeks. Repeat on admission pending - Continue PATTERNMAKER PRESSURE CAST long-acting insulin, will consider cutting dose in half if transitioning to [facility] before AM dose due. - Continue PATTERNMAKER PRESSURE CAST Novolog 3u/3u/3u with meals. WIll hold PATTERNMAKER PRESSURE CAST once holbrook catheter is out and transitioning to active labor - mSSI in active labor. Insulin gtt PRN + D5 NS - Blood Glucose Checks: -- Early Labor: Fasting, AC, PP in early labor -- Active Labor: Transition to q1hr - Consider endocrinology consult in the period - EFW 98%; AC >99% cm - Shoulder dystocia precautions discussed -- Discussed that shoulder dystocia is an obstetrical emergency as it impairs oxygenation of the fetus and can therefore result in , hypoxic ischemic encephalopathy if not able to be relieved nghia timely manner. Discussed risk of clavicular and humoral fracture and risk of brachial plexus injury which may be permanent in a minority of cases. Discussed maneuvers which may be used to resolve shoulder dystocia. Discussed that current recommendation is for delivery via section in diabetic patients with EFW greater than 4500g and non- diabetic patients with EFW greater than 5000g. Patient expressed desire to proceed with attempted vaginal delivery. # Induction of Labor Despite some SSR Bps and NSSR Bps on arrival, patient overall stable. Appropriate to proceed with IOL at this time. Cervix: /-3, Bishops score unfavorable. - S/p PV misoprostol x1 at [facility] for cervical ripening. Will continue this course with PO misprostol and holbrook catheter - Membranes: Intact - Augmentation: Pitocin, AROM prn - Labs: CBC, T&S, RPR, - GBS Positive; Antibiotics indicated. Will wait to rupture until adequate on antibiotics. - Pain Control: Per patient request; Discussed options. - Diet: Regular - PPH Meds: Standard Meds - PPx: SCDs for prolonged periods of immobility # RIVER - No meds - Mood stable # PNC - Rh positive, Rubella Immune - Other labs wnl - Imaging: placenta anterior - S flu, Tdap vaccines - Pap last - Contraception: Discuss PP - Feeding: Discuss # FWB: Cat I tracing, reactive; Cephalic by BSUS; EFW #8.5 - Continuous Monitoring - Intrauterine resuscitative measures prn # PPH Risk: High (2+ mod risk factors, h/o PPH, previa/low lying, accreta/increta/percreta, uterineinversion, uterine rupture, active bleeding on admit, coagulopathy, Hgb <10 + other risk facors,plts < 100,000)- IV, type and cross x2 units, uterotonics in room for delivery Patient seen and careplan discussed under the supervision of Dr. Ray Mabry MD, MPH, MS Obstetrics, Gynecology & Women's Health Resident, PGY-3 09/20/2023 7:48 AM Appreciate note by Dr. Mabry. Patient has been seen and examined by me separate from the resident, agree with above note. Najma Bell MD documented in this encounter Consult Notes * Gemma Huston PA-C - 09/22/2023 3:15 PM CDTAssociated Order(s): ENDOCRINE DIABETES ADULT IP CONSULT Images from the original note were not included. Inpatient Diabetes Management Service : New Consult Note Patient: Sheba Wilder Date of : 1985 Date of Consult : 09/22/2023 Date of Admission: 09/19/2023 Reason for Consult: Gemma Snyder MD Consult Requestor: likely type 2 DM, diagnosed early in . Persistent elevated glucose after delivery. History of Present Illness: Sheba Wilder is a 37 year old at 37w1d by LMP who presented as a transfer care from referral due to new diagnosis of severe preeclampsia. Sheba had presented to [facility] for induction oflabor in the setting of type 2 diabetes. At the start of her induction of labor she was found to have sustained severe range blood pressures . Due to concern for possible need for nicardipine drip, recommendations were made to transfer patient to [facility]. Sheba has a history of macrosomia with first and gestational diabetes that was not treated with insulin or diabetes meds.There is a note discussing 2013 that she failed her 1 hr OGGT but due to n,v she did not have a 3 hour OGTT. She watched her diet with baby #5 in 2014. She was placed on insulin she believes in July 2023 due to elevated blood glucose. She is not aware of any OGTT testing done this . She was seeing [facility] for her gestational diabetes/Type 2 diabetes/pre diabetes whose records we do not have access to. She says they told her that they were not sure she had diabetes and would have to wait until after delivery. She has been on Lantus 20 units in am and Novolog 3 units with each meal . She has been monitoring her BG with a Georgie 3. She says her BG have been [id number] after her iron transfusions and 140 after she eats. She has two A1c values in [facility]: A1c=5.2 on 01/01/2018 and on 09/20/2023 her A1c=7.4 which would include her glucoses. History obtained via the patient, chart review and discussion with primary team. Additional Historian: none Patient is not known to the Inpatient Diabetes Service from past admission(s). Last dose insulin PATTERNMAKER PRESSURE CAST: She thinks on 09/19/2023 Current inpatient regimen: medium correction scale. Previously on insulin drip on 09/21/2023 BG at time of consult: 140 Other Active/Contributory Medical Problems: none Planned Procedures/Surgeries: post delivery Relevant Labs on Admission: if contributory, otherwise see labs below ROUTINE IP LABS (Last four results) BMP Recent Labs Lab 09/22/23 1514 09/22/23 0658 09/22/23 0218 09/21/23 2309 09/21/23 1936 09/21/23 0530 09/21/23 0522 09/20/23 2135 09/20/23 2034 09/20/23 0551 09/20/23 0536 09/20/23 0010 NA -- -- -- -- -- -- -- -- -- -- 133* 136 POTASSIUM -- -- -- -- -- -- -- -- -- -- 4.2 4.3 CHLORIDE -- -- -- -- -- -- -- -- -- -- 102 104 LAVELL -- -- -- -- -- -- -- -- -- -- 8.0* 8.5* CO2 -- -- -- -- -- -- -- -- -- -- 19* 18* BUN -- -- -- -- -- -- -- -- -- -- 8.9 10.8 CR -- -- -- -- 0.87 -- 0.96* -- 0.68 -- 0.63 0.68 GLC 104* 140* 186* 161* -- < > -- < > 145* < > 130* 111* 113* < > = values in this interval not displayed. CBC Recent Labs Lab 09/22/23 0802 09/21/23 0522 09/20/23203309/20/23 0536 09/20/23 0010 WBC -- 18.9* 8.9 8.3 7.7 RBC -- 3.75* 4.29 4.18 4.19 HGB 6.3* 9.2* 10.5* 10.2* 10.1* HCT -- 30.1* 34.4* 32.7* 32.8* MCV -- 80 80 78 78 MCH -- 24.5* 24.5* 24.4* 24.1* MCHC -- 30.6* 30.5* 31.2* 30.8* RDW -- 17.1* 17.2* 16.8* 16.7* PLT -- 134* 116* 102* 104* INRNo lab results found in last 7 days. Inpatient Glucose Trends: Diabetes History: Diabetes Type and Duration: Gestational diabetes with possible Type 2 diabetes/pre diabetes PATTERNMAKER PRESSURE CAST Medication Regimen: Lantus 20 units in am and Novolog 3 units with each meal starting in July 2023 Historical Diabetes Medications: none Glucose monitoring device and frequency: Georgie 3 Outpatient Diabetes Provider: [facility] Formal Diabetes Education/Educator: Not sure Complications: - peripheral neuropathy, -retinopathy (last eye exam: a long time), -nephropathy,-gastroparesis, -macrovascular disease Last A1c: 7.4 on 09/20/2023--> the day before delivery Hemoglobin at time of last A1c: 10.5 RBC transfusion in past 3 months: Iron transfusion History of DKA: no Hypoglycemia PATTERNMAKER PRESSURE CAST: No episodes Safety Kit: - Glucagon: - - Ketone Strips: - Medic Alert if Type 1: - Diet/Lifestyle: 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 HEENT: no headache, vision changes, hearing changes, sinus congestion today Cardiac: - chest pain, palpitations, or racing heart. Respiratory: - dyspnea on exertion and at rest. GI: - abdominal pain, tenderness and bloating. - nausea and vomiting. - diarrhea. : - difficulty urinating, dysuria, and incontinence. Endocrine: - polyuria, polydipsia Past Medical History: No past medical history on file. Past Surgical History: Past Surgical History: Procedure Laterality Date DILATION AND CURETTAGE DILATION AND CURETTAGE SUCTION N/A 01/20/2022 Procedure: SUCTION DILATION AND CURETTAGE; Surgeon: Jarvis Naqvi MD; Location: [facility] OR TUBOPLASTY Bilateral 10/03/2021 Procedure: BILATERAL TUBAL ANASTOMOSIS; Surgeon: Tre Ba MD; Location: [facility] OR Social History: Social History Tobacco Use Smoking status: Never Smokeless tobacco: Never Substance Use Topics Alcohol use: Not Currently History Sexual Activity Sexual activity: Not on file Tobacco: Former Etoh: Not current Family History: Reviewed and non-contributory. Family History of Diabetes: mom had gestational diabetes No family history on file. Physical Exam: BP 128/75 Pulse 96 Temp 98.9 ??F (37.2 ??C) (Oral) Resp 18 Wt 86.4 kg (190 lb 7.6 oz) [facility]03/05/2022 SpO2 97% Unknown BMI 35.99 kg/m?? General: well appearing, in no acute distress. HEENT: NC/AT. MMM, sclera not injected Lungs: unremarkable, no audible cough, no work of breathing, remains on room air ABD: rounded, soft, non-tender Skin: warm and dry, no obvious lesions MSK: moving all extremities Lymp: trace bilateral LE edema Mental Status: Alert and oriented x3 Psych: Cooperative, good eye contact, full/appropriate affect Laboratory Data: Lab Results Component Value Date A1C 7.4 (H) 09/20/2023 Recent Labs Lab Test 09/22/23 0809/21/23521 WBC -- 18.9* RBC -- 3.75* HGB 6.3* 9.2* HCT -- 30.1* MCV -- 80 MCH -- 24.5* MCHC -- 30.6* RDW -- 17.1* PLT -- 134* Recent Labs Lab Test 09/22/23 0658 09/22/2321709/21/23230809/21/23193509/21/23 0509/21/23 0522 09/20/23 0551 09/20/23 0536 09/20/23 0010 NA -- -- -- -- -- -- -- 133* 136 POTASSIUM -- -- -- -- -- -- -- 4.2 4.3 CHLORIDE -- -- -- -- -- -- -- 102 104 CO2 -- -- -- -- -- -- -- 19* 18* ANIONGAP -- -- -- -- -- -- -- 12 14 GLC 140* 186* < > -- < > -- < > 130* 111* 113* BUN -- -- -- -- -- -- -- 8.9 10.8 CR -- -- -- 0.87 -- 0.96* < > 0.63 0.68 LAVELL -- -- -- -- -- -- -- 8.0* 8.5* < > = values in this interval not displayed. Recent Labs Lab Test 09/21/2352109/20/23203309/20/23 05 PROTTOTAL -- -- 6.4 ALBUMIN -- -- 3.3* BILITOTAL -- -- 0.3 ALKPHOS -- -- 152* AST 26 < > 21 ALT 20 < > 16 < > = values in this interval not displayed. Assessment and Recommendations: Assessment: Gestational Diabetes Mellitus with possible type 2 diabetes/pre diabetes without complication, suboptimal control during (A1c 7.4 % on 09/20/2023) Plan/Recommendations: - Continue to hold Lantus - Since no plans for breast feeding although no known issues with breast feeding, just no longitudinal studies--> would recommend starting Metformin 500 mg po bid Resources [email or web address] Can I take metformin while ? Metformin appears to be safe during . Several reports have shown that metformin can get into breast milk in very small amounts. Another study found that infants of mothers who received metformin throughout and while achieved the same growth at six months of age as infants who were formula-fed. Be sure to talk to your health care provider about all your choicesfor . 2. Endocrine society clinical practice guidelines 6.2b. We recommend that women with overt diabetes successfully using metformin or glyburide therapy during should continue to use these medications, when necessary, during . (1 ?) ?, high quality) The increased risk of infants born to women with diabetes for childhood obesity and the later development of impaired glucose intolerance and diabetes (81) is reduced by (202-211). may also facilitate weight loss and reduce maternal and risk for the later development of type 2 diabetes (212, 213). The concentrations of metformin in breast milk are generally low, and the mean exposure to metformin has been reported in the range 0.28% to 1.08% of the weight-normalized maternal dose, well below the level of concern for (214). Metformin use by the woman vs formula feeding appears to have no adverse effects on infant growth, motor-social development, and intercurrent illness during the first 6 months of life (215). Glyburide was not detected in breast milk, and hypoglycemia was not observed in nursing infants of women using glyburide (216). The exposure ofinfants to second- generation sulfonylureas (such as glipizide and glyburide) through breast milk isexpected to be minimal, based on the limited data available. The benefits of greatly outweigh the risks of these medications, if any (217). 3. Metformin is thought to be safe to use during [75], as very little is transferred into human milk (\0.4 % of the maternal concentration) [75, 76].75. Jenise TW, Nils JH, Dorothea LP, Fiona R, Dolores KF. Transfer of metformin into human milk. Diabetologia. 2002;45:1509-14. 76. Alvin SJ, Charles CM, Ladan EJ, Jeronimo M, Dimitry MP, Billy DJ. Transfer of metformin into human milk. Clin Pharmacol Ther. 2003;73:71-7 4. Metformin has no known teratogenicity and no known harm, although it crosses the placenta readily, and it is unbound in serum (19). It remains Food and Drug Administration Category B during . What is lacking in the research is long-range study of infants who were exposed to metformin via breast milk. -No Novolog carb correction - Stop Novolog Correction Scale: medium resistance (ISF: ) TID AC / HS / 0200 - BG monitoring: TID AC, HS - Hypoglycemia protocol - Carb counting protocol -Place Georgie 3 back on on discharge. Continue to monitor BG twice daily before eat in am and then before dinner or before lunch or at bedtime. Alternate lunch one day, dinner one day and bedtime one day. Take blood glucose values to primary care or back to [facility]. Get A1c in 4-6 weeks Discussion: Unclear after speaking with Sheba that she has a known diagnosis of Type 2 diabetes. No access to [place] [facility] records. BG running from 132 to 186 yesterday post delivery off the insulin drip.CPY=643 this am. Could start low dose metformin 500 mg po bid or could just monitor bg for2 weeks with Georgie 3 and follow up with PCP/[facility]. Sheba says she will not breast feed. Discussed if she did that metformin passes through the breast milk and no terminal operator studies. Stop metformin if develops nausea or vomiting or diarrhea. She will place Georgie 3 back on and continue to monitor BG twice daily and follow up with either PCP or [facility]. Discharge Planning: (tentative) Medications: TBD Test Claims: Metformin Education: knows how to monitor Outpatient Follow-up: recommend [facility] vs PCP in 2 weeks with blood glucose values. Discussed plan with patient, discussed pt with RN and sent vocera to PGY2 resident but they are in the OR. Thank you for this consult. IDS will not continue to follow. If you have questions can call job code below. Please notify Inpatient Diabetes Service if changes are planned to steroids, nutrition, TPN/TF and anticipated procedures requiring prolonged NPO status. Gemma Huston PA-C Inpatient Diabetes Service [phone] Vocera To contact Inpatient Diabetes Service: 7 AM - 5 PM: Page the IDS VINNY following the patient that day (see filed or incomplete progress notes/consult notes under Endocrinology) OR if uncertain of provider assignment: page job code [id number] 5 PM - 7 AM: First call after hours is to primary service. For urgent after-hours questions, page job code for numerical control machine machinist fellow: [id number] I spent a total of 80 minutes on the date of the encounter doing prep/post-work, chart review, history and exam, documentation and further activities per the note including lab review, multidisciplinary communication, counseling the patient and/or coordinating care regarding acute hyper/hypoglycemic management, as well as discharge management and planning/communication. See note for details. * Aida Shane CNS - 09/22/2023 12:46 PM CDTAssociated Order(s): LEAD APPLIER DIABETES IP CONSULT Diabetes LEAD APPLIER consult received for Sheba Wilder, age 37, at 37w1d by LMP who presented as a transfer of care from referral due to new diagnosis of severe preeclampsia. Sheba had presented to [facility] for induction of labor in the setting of type 2 diabetes. At the start of her inductionof labor she was found to have sustained severe range blood pressures . Due to concern for possibleneed for nicardipine drip, recommendations were made to transfer patient to [facility]. Sheba has a history of macrosomia with first and gestational diabetes that was not treated with insulin or diabetes meds. There is a note discussing 2012 that she failed her 1 hr OGGT but due to n,v she did not have a 3 hour OGTT. She watched her diet with baby #5 in 2014. She was placed on insulin she believes in July 2023 due to elevated blood glucose. She is not aware of any OGTT testing done this . She was seeing [facility] for her gestational diabetes/Type 2 diabetes/pre diabetes whose records we do not have access to. She says they told her that they were not sure she had diabetes and would have to wait until after delivery. She has been on Lantus 20 units in am and Novolog 3 units with each meal . She has been monitoring her BG with a Georgie 3. She saysher BG have been running 80-102 after her iron transfusions and 140 after she eats. She has two [id number] in [facility]: A1c=5.2 on 01/01/2018 and on 09/20/2023 her A1c=7.4 which would include her glucoses. She is now s/p . Endocrinology/Inpatient Diabetes Service has been consulted for glycemic management. She has been seen today by Gemma Huston PA-C, Inpatient Diabetes Service. Please see her full note for plan. Educational needs are none at this time as is familiar with monitoring and Georgie 3 CGM. Insulin discontinued. Initiating Metformin. Aida Shane APRN Diabetes LEAD APPLIER/DAVE La documented in this encounter Miscellaneous Notes * Plan of Care - Luana Hui RN - 09/22/2023 11:25 PM CDT Goal Outcome Evaluation: Data: Vital signs within normal limits. checks within normal limits - see flow record. Patient eating and drinking normally. Patient able to empty bladder independently and is up ambulating. No apparent signs of infection. . Patient performing self cares and is able to care for . Action: Patient medicated during the shift for cramping. See MAR. Patient reassessed within 1 hour after each medication and pain was improved - patient stated she was comfortable. Response: Positive attachment behaviors observed with infant. Support persons family present. Plan: Anticipate discharge on 09/22. * Plan of Care - Ivis Oconnell RN - 09/22/2023 5:08 PM CDT Goal Outcome Evaluation: VSS, fundus firm and at U, scant amount of bleeding. Denies any pre-e symptoms. No clonus present, +2 brachial reflexes. +2 edema in lower extremities. Voiding without difficulties, tolerating PO. 1 unit blood infused this afternoon, pt slightly tachycardic at times, deniesany chest pain or SOB. Bottle feeding formula. Still needs to complete paperwork and watch videos, declined an ROP. Significant other at bedside, participating in cares. * Plan of Care - Ina Swan RN - 09/22/2023 3:08 PM CDT Goal Outcome Evaluation: Stable post Mg+ patient that is up and walking in room without symptoms. Hgb down to 6.3. I unit of PRBC's ordered after consent. About 1/2 done now and patient tolerating itjust fine. Eating and drinking well, minimal c/o pain with PRN's, I/O WDL Bonding well with by holding and doing cares. Continue with plan of care. * Plan of Care - Gardenia Martinez RN - 09/22/2023 6:37 AM CDT Goal Outcome Evaluation: VSS and assessments WDL, reflexes present but diminished with no clonus. SpO2 was dipping into the 80s, 1L of oxygen was started, provider notified. Pt requested we remove the O2 after an hour. Mag and LR were discontinued at 0330 per orders. Up with stand by assist/ or Gabby Steady to the bathroom due to pt being too tired to ambulate. Bonding well with . Formula feeding every 2-3 hours. Pain managed with tylenol and ibuprofen. Significant other present and supportive. Will continue with cares and education per plan of care. Plan of Care Reviewed With: patient Overall Patient Progress: improvingOverall Patient Progress: improving * Provider Notification - Gardenia Martinez RN - 09/22/2023 5:12 AM CDT 09/22/23 0142 Provider Notification Provider Name/Title Dr. Lee (G2) Method of Notification Electronic Page Request Evaluate-Remote Notification Reason Vital Signs Change Pt's spO2 continues to dip into 80s while sleeping, pt denies shortness of breath, lung sounds are clear, would you like me to start her on 1L of O2? Dr. Lee: yes, that's fine * Plan of Care - Isamar Quinn RN - 09/21/2023 7:50 PM CDT [id number]: VSS and assessments WDL. Pt on continuous magnesium sulfate infusion and feeling very dizzy, drowsy and weak. Sleeping between cares and assessments. Using gabby steady to and from bathroom. Pt reports blurry vision but denies spots or flashes in her vision. She also denies headache, RUQ pain or SOB. Did [id number]-tq-[id number] with briefly, but unable to do much else due to feeling unwell from magnesium. Bottle/formula feeding per mother's preference (may breastfeed when feeling better/off magnesium, provided education on pumping/hand expressing, mother declined). Pain managed with tylenol and ibuprofen per MAR. Significant other, Ortega present and supportive. Will continue with cares and education per plan of care. Problem: Adult Inpatient Plan of Care Goal: Optimal Comfort and Wellbeing Intervention: Provide Person-Centered Care Recent Flowsheet Documentation Taken 09/21/2023 1601 by Isamar Quinn RN Trust Relationship/Rapport: care explained choices provided questions answered reassurance provided questions encouraged thoughts/feelings acknowledged * Provider Notification - Isamar Quinn RN - 09/21/2023 5:30 PM CDT 09/21/23 1730 Provider Notification Provider Name/Title Dr Bell Method of Notification Electronic Page Request Evaluate-Remote Notification Reason Lab Results Sent: Wondering if this pt's hepatitis B status is known to us? I am unable to find any recent result in Care Everywhere or record, however H&P says labs WDL. Needing to know for baby vaccines. Update at 1814: Saw Dr Lee (resident) on unit and discussed this. He will look into it and let usknow. Update: Dr Lee ordered Hepatitis B labs as an add on. * Plan of Care - Ros Hoffman RN - 09/21/2023 3:39 PM CDT Vitals signs stable and FF U/U to 1/U with small lochia. Pt has been very sleepy right from the time of transfer to room. Had a small meal and was not interested eating more. Pt just started drinkingnow that she is awake and doing skin to skin with baby. Voiding with assist ambulating to the bathroom and was taken back to bed using the gabby steady because pt was complains of being really tired. Denies pain or having any symptoms of preeclampsia. Reflexes are normal. Pt is formula feeding only now. Pt assessed for pain. Encouraged to call for blood sugar checks and when going to the bathroom.Continue cares and monitor pt closely. * Plan of Care - Ros Hoffman RN - 09/21/2023 2:10 PM CDT Patient arrived to [facility] unit via wheelchair at 1103 ,with belongings, accompanied by spouse/ significant other, with in arms. Received report from Gabby Chatterjee and checked bands. Unit and roomorientation not started because pt/spouse fell asleep right away . Call light within arms reach; no concerns present at this time. Continue with plan of care. * Plan of Care - Gabby Chatterjee RN - 09/21/2023 11:31 AM CDT Goal Outcome Evaluation: Plan of Care Reviewed With: patient, spouse Data: Sheba Wilder transferred to [facility] via wheelchair at 1045. Baby transferred via parent's arms. Action: Receiving unit notified of transfer: Yes. Patient and family notified of room change. Report given to Ros Hoffman RN at 1025. Belongings sent to receiving unit. Accompanied by Registered Nurse. Oriented patient to surroundings. Call light within reach. ID bands double-checked with receiving RN. Response: Patient tolerated transfer and is stable. * Provider Notification - Gabby Chatterjee RN - 09/21/2023 10:17 AM CDT 09/21/23 0811 Provider Notification Provider Name/Title Dr Orellana Method of Notification Phone Request Evaluate - Remote Notification Reason Lab/Diagnostic Study;Status Update Discussed insulin drip that was running during labor is continued to run in per protocol. Provider agrees and will create a communication order to keep insulin drip running per protocol. Will transition to sliding scale with breakfast meal. * Provider Notification - Alisa Lubin RN - 09/21/2023 6:[address] Snyder and Dr. Gomez about pt's hyperglycemia post-delivery. They requested pt remain on insulin gtt until BGs below 150 and pt interested in eating. * Provider Notification - Alisa Lubin RN - 09/21/2023 2:52 AM CDT Noted that pt has only had 50 mL of UOP in 4 hours, and 50 mL in the previous 4 hours (100 mL from 1845 to 0245). Dr. Gomez aware, will continue to monitor. * Plan of Care - Keisha Moran RN - 09/20/2023 11:58 PM CDT Patient treated for severe range BP x 1 this shift with labetalol, BPs continue to be labile. All other VSS. Headache and nausea early in shift, relieved with Benadryl and reglan. Patient denies epigastric pain and vision changes. Leaking large amounts of clear fluid, bloody show present, 1 golf ball size clot noticed and provider notified. Frequent position changes made throughout shift including side lying on both sides with peanut ball, throne, and semi fowlers with variations to encourage decent. Patient frequently drowsy throughout shift, but able to maintain conversation and make needs known.Mag level checked due to increased sedation and ongoing drowsiness, within therapeutic range. At times patient comfortable with epidural, but increasing discomfort as labor progressed, epidural rebolused x 1. Pt currently on insulin drip following active labor protocol, mag at 2g/ hr. Labs stable per most recent draw. Urine output decreased over last 4 hours, Dr. Gomez to bedside following clot and notified only able to straight cath pt for 50 mL over previous 3 hours but baby's headfelt difficult to pass catheter around. Report to JD Mi who assumes patient care. * Provider Notification - Keisha Moran RN - 09/20/2023 5:56 PM CDT 09/20/23 1756 Provider Notification Provider Name/Title Dr. Guzman Method of Notification Electronic Page Notification Reason Lab/Diagnostic Study MD notified mag level at 6.5 * Provider Notification - Keisha Moran RN - 09/20/2023 5:38 PM CDT 09/20/23 1653 Provider Notification Provider Name/Title dr. Guzman Method of Notification At Bedside Request Evaluate in Person Notification Reason Maternal Vital Sign Change;Other (Comment) Provider paged at 1647 to assess pt following pt reporting headache and nausea, severe range BP sustained treated with 20 mg labetalol, and pt respiratory drive decreased with LOC change following treatment with 25 mg benadryl and reglan. Lung sounds clear, upper extremities reflexes 1+, provider able to illicit 2+ in legs. Pt able to wake and answer questions, but falling asleep immediately after answering. Per MD, okay to leave magnesium running given pt reflexes normal in legs, will turn offif Mag out of therapeutic range. Additional severe range BP while provider at bedside and pt simultaneously changing position, per MD do not treat this severe range BP unless repeat in 10 mins given pt moving while BP cuff going off. No further severe range BPs following. MD okay with giving pt oral NIfedipine ordered for 1800 early. Pt AROM with clear fluid and plan to start active labor management for diabetes. * Plan of Care - Quita Morales RN - 09/20/2023 3:23 PM CDT Goal Outcome Evaluation: Plan of Care Reviewed With: patient, spouse Overall Patient Progress: improvingOverall Patient Progress: improving BP in mild range most of the shift, labetalol given x1 for severe range BP at 0959. EFM & TOCO monitors in place, see flowsheets. Magnesium, LR, and Pitocin infusing per orders, see MAR. GBS+, penicillin in use q4hrs. Last SVE at 0915: 30/-2. Patient comfortable with epidural. Intermittent MARTIN, prn tylenol given with relief. Frequent position changes, and utilizing Alexa circuit, in use. Partner and mother at bedside, both supportive. Continue with current POC. * Plan of Care - Quita Morales RN - 09/20/2023 10:45 AM CDT Goal Outcome Evaluation: Plan of Care Reviewed With: patient Pitocin Initiation Note Data: Contractions: Irregular frequency q 2-7 minutes. FHT's category one. Cerivix exam: , 30, -2. Interventions: Pitocin induction/augmentation orders obtained. Plan: Start pitocin per orders. Anticipate . Notify provider of progressing labor, needs for pain medication, or maternal/ distress. * Plan of Care - Nancy Zee RN - 09/20/2023 6:31 AM CDT Epidural placed at 0605 and patient resting comfortably; sleeping. BP's have been 130's/70's, HR 80's, RR 16-18, SpO2 98% on room air. Patient denies visual changes, RUQ/epigastric pain, and SOB. States that headache is much better, down from 8/10 to 4/10. +1-+2 reflexes and 0 beats of clonus. +2-+3 edema. LS CTA. +FM. Denies leaking. Bloody show when last using the bathroom. Coupling cxt's q 2-4 minutes that palpate strong w/soft resting tone. FHR 115-125, moderate (period of minimal after epidural placement), w/AGA accels and no decels. Fasting IK=622; administering Lantus now per provider. Patient has verbalized understanding of teachings in regards to labor process and s/sx's to report to team, as well as agreement w/current plan of care. Report given to Quita Fulton RN at 0715 and cares relinquished. Nancy Zee RN on 09/20/2023 at 7:22 AM * Provider Notification - Nancy Zee, JD - 09/20/2023 3:57 AM CDT 09/20/23 0354 Provider Notification Provider Name/Title Dr. Mabry Method of Notification Electronic Page Notification Reason Other (Comment) (elevated BP) 50 minutes after 40 mg IV labetalol administered, BP back up to 160/81. BP's have been ranging nmid028's-140's/80's-90's. Neuros WNL and MARTIN improving per patient; sleeping in between cares. EFM tracing category I. Patient has received a total of 60 mg IV labetalol since admission to unit. Per report, received 140 mg at OSH. Per provider: recheck BP in 15 minutes. If elevated, restart IV labetalol algorithm. Nancy Zee RN on 09/20/2023 at 4:03 AM * Plan of Care - Nancy Zee RN - 09/20/2023 2:13 AM CDT Data: Patient admitted to room 477 at 2356. Patient is a . record reviewed. OB History Para Term AB Living 9 5 5 0 3 5 SAB IAB Ectopic Multiple Live Births 3 0 0 0 5 # Outcome Date GA Lbr Bj/2nd Weight Sex Type Anes PTL Lv 9 Current 8 Term 2012 ARVIN 7 Term 2011 ARVIN 6 Term 2009 ARVIN 5 Term 04/28/03 40w0d 36:00 4.791 kg (10 lb 9 oz) F Vag-Spont ARVIN Comments: [place] 4 SAB SAB 3 SAB SAB 2 SAB SAB 1 Term ARVIN . Medical History: Preeclampsia w/severe features, T2DM, anemia, LGA, polyhydramnios, PPH w/transfusion. Gestational age 37w1d. Vital signs per doc flowsheet. movement present. Patient reports Pre-Eclampsia as reason for admission/transfer from [facility]. Support persons Ortega (SO) and Ly (mother) present. Action: Report received from [facility] RN at 2326. Verbal consent for EFM, external monitorsapplied. Admission assessment completed. Patient and support persons educated on labor process. Patient instructed to report change in movement, contractions, vaginal leaking of fluid or bleeding, abdominal pain, or any concerns related to the to her nurse/physician. Patient endorses MARTIN (rated 8/10) and occasional floaters in visions. Neuros: +2 reflexes w/0 clonus and strong bilateral hand grasps. LS CTA anterior and posterior. +2 BLE edema as well as hand; patient reports increased swelling and MARTIN over the last several days. Magnesium gtt and LR running at time of transfer. Patient oriented to room, call light in reach. Response: Dr. Mabry informed of patient arrival and at bedside at 0012. Plan per provider is blood pressure stabilization/management, continuous EFM, BP trends, magnesium gtt, labs, and proceeding w/IOL. Patient verbalized understanding of education and verbalized agreement with plan. Patient copingwith labor via rest currently; planning for epidural when ready Nancy Zee RN on 09/20/2023 at 2:17 AM . * Provider Notification - Charlie Lambert RN - 09/19/2023 11:07 PM CDT [id number]/19/232239 Provider Notification Provider Name/Title Ahmet Reyna MD Method of Notification Electronic Page Order Editor sent page to Dr Reyna at [address] Burgos, regarding consult from [facility] about pt, , 37.0 IOL for unctrl T2DM, lga/poly. Cervix 1 cm. Having SRBP, new dx of pre-e w/ SF,on magnesium sulfate at 2g/hr. Labetalol, hydralazine and nifed given per their protocols. Dr Reyna accepted transfer, and pt to be transferred to L&D via ambulance. Dr Reyna notified Dr Sarah Bell of pending arrival and engineering technical writer notified Dr Mabry (G3) of pending arrival. documented in this encounter Plan of Treatment Pending Results Name Type Priority Associated Diagnoses Date /Time Prepare red blood cells (unit) Blood Bank Routine 09/20/2023 7:51 AM CDT Scheduled Orders Name Type Priority Associated Diagnoses Order Schedule Magnesium Lab STAT Enter conditio n for order release in comments for 100 Occurrences starting 09/20/2023, 1 completed Prepare red blood cells (unit), 2 Units Blood Bank Routine Once for 1 Occurrences starting 09/20/2023 until 09/20/2023 ABO/Rh type and screen Lab Panel STAT En ter condition for order release in comments for 1 Occurrences starting 09/21/2023 CBC with Platelets & Differential Lab Panel STAT Enter condition for order release in comments for 1 Occurrences starting 09/21/2023 Oxygen: Oxygen mask Respiratory Care STAT As Needed until discontinued starting 09/21/2023 Fibrinogen activity Lab STAT Enter condition for order release in comments for 1 Occurrences starting 09/21/2023 D dimer quantitative Lab STAT Ente r condition for order release in comments for 1 Occurrences starting 09/21/2023 INR Lab STAT Enter conditio n for order release in comments for 1 Occurrences starting 09/21/2023 Partial thromboplastin time Lab STAT Enter condition for order release in comments for 1 Occurrences starting 09/21/2023 RH Immune Globulin Screen Blood Bank STAT conditional for 1 Occurrences starting 09/21/2023 Prepare red blood cells (unit), 1 Units Blood Bank Routine Once for 1 Occurrences starting 09/22/2023 until 09/22/2023 Hemoglobin Lab Routine AM Draw for 1 Occurrences starting 09/23/2023 until 09/23/2023 documented as of this encounter Procedures The patient is currently admitted. The [...] CDT CREATININE STAT 09/21/2023 5:22 AM CDT AST STAT 09/21/2023 5:22 AM CDT ALT STAT 09/21/2023 5:22 AM CDT CBC WITH PLATELETS STAT 09/21/2023 5: 22 AM CDT GLUCOSE BY METER Routine 09/21/2023 4:28 AM CDT GLUCOSE BY METER Routine 09/21/2023 2:31 AM CDT GLUCOSE BY METER Routine 09/21/2023 1:29 AM CDT GLUCOSE BY METER Routine 09/21/2023 12:3 0 AM CDT GLUCOSE BY METER Routine 09/20/2023 11:2 9 PM CDT GLUCOSE BY METER Routine 09/20/2023 10:3 3 PM CDT GLUCOSE BY METER Routine 09/20/2023 9:35 PM CDT GLUCOSE BY METER Routine 09/20/2023 8:34 PM CDT RBC AND PLATELET MORPHOLOGY Routine 09/20/2023 8:34 PM CDT CREATININE Routine 09/20/2023 8:34 PM CDT AST Routine 09/20/2023 8:34 PM CDT ALT Routine 09/20/2023 8:34 PM CDT CBC WITH [...] CELLS (UNIT) Routine 09/20/2023 7:51 AM CDT GLUCOSE BY METER Routine 09/20/2023 5:51 AM CDT COMPREHENSIVE METABOLIC PANEL Routine 09/20/2023 5:36 AM CDT ABO AND RH Routine 09/20/2023 5:36 AM CDT CBC WITH PLATELETS STAT 09/20/2023 5: 36 AM CDT GLUCOSE BY METER Routine 09/20/2023 12:1 0 AM CDT TYPE AND SCREEN, ADULT STAT 09/20/2023 12:10 AM CDT HEPATITIS B SURFACE ANTIBODY STAT Add-on 09/20/2023 12:10 AM CDT TREPONEMA ABS W REFLEX TO RPR AND TITER Routine 09/20/2023 12:10 AM CDT HEPATITIS B CORE ANTIBODY STAT Add-on 09/20/2023 12:10 AM CDT HEMOGLOBIN A1C Add-On 09/20/2023 12:10 AM CDT COMPREHENSIVE METABOLIC PANEL STAT 09/20/2023 12:10 AM CDT ABO/RH TYPE AND SCREEN STAT 09/20/2023 12:10 AM CDT CBC WITH PLATELETS STAT 09/20/2023 12 :10 AM CDT ROUTINE UA WITH MICROSCOPIC REFLEX TO CULTURE Add-On 09/20/2023 12:03 AM CDT PROTEIN RANDOM URINE STAT 09/20/2023 12:03 AM CDT documented in this encounter Results * (ABNORMAL) Glucose by meter (09/22/2023 10:50 PM CDT) GLUCOSE BY METER POCT 160(H) 70 - 99 mg/dL 09/22/2023 10:57 PM CDT UR LABORATORY POC Comment:Dr/RN Notified Blood, Capillary BLOOD SPECIMEN / Unknown 09/22/2023 10:50 PM CDT 09/22/2023 10:57 PM CDT [facility] Acute Care Lab [address] [facility], [address] [place] [address] * (ABNORMAL) Hemoglobin (09/22/2023 10:31 PM CDT) Hemoglobin 7.1(L) 11.7 - 15.7 g/dL 09/22/2023 10:52 PM CDT UR LABORATORY Blood STRUCTURE OF RIGHT UPPER LIMB / Unknown Venipuncture / Unknown 09/22/2023 10:31 PM CDT 09/22/2023 10:49 PM CDT Najma Bell MD LAB - BLOOD ORD ERABLES UR LABORATORY [facility] Acute Care Lab [address] [place] [address], Room [address] * (ABNORMAL) Glucose by meter (09/22/2023 6:06 PM CDT) GLUCOSE BY METER POCT 137(H) 70 - 99 mg/dL 09/22/2023 6:12 PM CDT UR LABORATORY POC Blood, Capillary BLOOD SPECIMEN / Unknown 09/22/2023 6:06 PM CDT 09/22/2023 6:12 PM CDT Najma Bell MD LAB - BEAKER PO CT UR LABORATORY POC [facility] [address] [place] [address], [address] * Transfuse red blood cells (unit) (09/22/2023 4:22 PM CDT) Gemma Snyder MD BLOOD TRANSFUSION OR DERABLES * Transfuse red blood cells (unit), 1 Units (09/22/2023 4:22 PM CDT) Gemma Snyder MD BLOOD TRANSFUSION OR DERABLES * (ABNORMAL) Glucose by meter (09/22/2023 3:14 PM CDT) GLUCOSE BY METER POCT 104(H) 70 - 99 mg/dL 09/22/2023 3:21 PM CDT UR LABORATORY POC Blood, Capillary BLOOD SPECIMEN / Unknown 09/22/2023 3:14 PM CDT 09/22/2023 3:21 PM CDT Najma Bell MD LAB - BEGERMÁN WIL[address] CT Performing Organization Address City/[facility]/ZIP Co de Phone Number UR LABORATORY POC [facility] Acute Care Lab [address] [place] [address], Room [address] * (ABNORMAL) Hemoglobin (09/22/2023 8:02 AM CDT) Hemoglobin 6.3(LL) 11.7 - 15.7 g/dL 09/22/2023 9:07 AM CDT UR LABORATORY Blood STRUCTURE OF LEFT UPPER LIMB / Unknown Venipuncture / Unknown 09/22/2023 8:02 AM CDT 09/22/2023 8:45 AM CDT Brittani Gomez MD LAB - BLOOD ORDERABL ES Performing Organization Address City/[facility]/ZIP Co de Phone Number UR LABORATORY [facility] [address] [place] [address], [address] * (ABNORMAL) Glucose by meter (09/22/2023 6:58 AM CDT) GLUCOSE BY METER POCT 140(H) 70 - 99 mg/dL 09/22/2023 7:05 AM CDT UR LABORATORY POC Blood, Capillary BLOOD SPECIMEN / Unknown 09/22/2023 6:58 AM CDT 09/22/2023 7:05 AM CDT Najma JOHNSON - [place] CT UR LABORATORY POC [facility] Acute Care Lab [address] [place] [address], [address] [phone] * (ABNORMAL) Glucose by meter (09/22/2023 2:18 AM CDT) GLUCOSE BY METER POCT 186(H) 70 - 99 mg/dL 09/22/2023 2:24 AM CDT UR LABORATORY POC Blood, Capillary BLOOD SPECIMEN / Unknown 09/22/2023 2:18 AM CDT 09/22/2023 2:24 AM CDT Najma [address] UR LABORATORY POC [facility] Acute Care Lab [address] [facility], [address] [phone], [facility] * (ABNORMAL) Glucose by meter (09/21/2023 11:09 PM CDT) GLUCOSE BY METER POCT 161(H) 70 - 99 mg/dL 09/21/2023 11:16 PM CDT UR LABORATORY POC Blood, Capillary BLOOD SPECIMEN / Unknown 09/21/2023 11:09 PM CDT 09/21/2023 11:16 PM [address]ma [address] Performing Organization Address City/[facility]/ZIP Co de Phone Number UR LABORATORY POC [facility] Acute Care Lab [facility] [facility], [address] [address], [facility] * Creatinine (09/21/2023 7:36 PM CDT) Creatinine 0.87 0.51 - 0.95 mg/dL 09/21/2023 8:31 PM CDT UR LABORATORY GFR Estimate 89 >60 mL/min/1.7 3m2 09/21/2023 8:31 PM CDT UR LABORATORY Comment:eGFR calculated usin 2020 CKD-EPI equation. Blood STRUCTURE OF RIGHT HAND / Unknown Venipuncture / Unknown 09/21/2023 7:36 PM CDT 09/21/2023 8:05 PM CDT Najma Orellana DO LAB - BLOOD ORDERABL ES Performing Organization Address City/[facility]/ZIP Co de Phone Number UR LABORATORY [facility] Acute Care Lab [facility], [address] [address], [facility] * (ABNORMAL) Glucose by meter (09/21/2023 6:11 PM CDT) GLUCOSE BY METER POCT 132(H) 70 - 99 mg/dL 09/21/2023 6:18 PM CDT UR LABORATORY POC Blood, Capillary BLOOD SPECIMEN / Unknown 09/21/2023 6:11 PM CDT 09/21/2023 6:18 PM CDT Najma JOHNSON - GERMÁN [facility] UR LABORATORY POC [facility] [address] [place] [address], Room [place] [phone], [facility] * (ABNORMAL) Glucose by meter (09/21/2023 10:41 AM CDT) GLUCOSE BY METER POCT 147(H) 70 - 99 mg/dL 09/21/2023 10:49 AM CDT UR LABORATORY POC Comment:/JD Notified Blood, Capillary BLOOD SPECIMEN / Unknown 09/21/2023 10:41 AM CDT 09/21/2023 10:49 AM CDT Najma JOHNSON - MATT [facility] Performing Organization Address City/[facility]/ZIP Co de Phone Number UR LABORATORY POC [facility] [address] [place] [address], [address] [phone], [facility] * (ABNORMAL) Glucose by meter (09/21/2023 9:31 AM CDT) GLUCOSE BY METER POCT 125(H) 70 - 99 mg/dL 09/21/2023 9:38 AM CDT UR LABORATORY POC Comment:/JD Notified Blood, Capillary BLOOD SPECIMEN / Unknown 09/21/2023 9:31 AM CDT 09/21/2023 9:38 AM CDT Najma GUTIERREZ [facility] UR LABORATORY POC [facility] [address] [place] [address], [address] * (ABNORMAL) Glucose by meter (09/21/2023 8:37 AM CDT) GLUCOSE BY METER POCT 124(H) 70 - 99 mg/dL 09/21/2023 9:15 AM CDT UR LABORATORY POC Comment:/JD Notified Blood, Capillary BLOOD SPECIMEN / Unknown 09/21/2023 8:37 AM CDT 09/21/2023 9:15 AM CDT Najma Bell MD LAB - [facility] Performing Organization Address City/[facility]/ZIP Co de Phone Number UR LABORATORY POC [facility] [address] [place] [address], Room [place] [phone] * (ABNORMAL) Glucose by meter (09/21/2023 7:38 AM CDT) GLUCOSE BY METER POCT 152(H) 70 - 99 mg/dL 09/21/2023 7:45 AM CDT UR LABORATORY POC Comment:Abdulkadir Notified Blood, Capillary BLOOD SPECIMEN / Unknown 09/21/2023 7:38 AM CDT 09/21/2023 7:45 AM CDT Najma Bell MD LAB - [facility] UR LABORATORY POC [facility] Acute Care Lab [address] [place] [address], Room [place] [phone] * (ABNORMAL) Glucose by meter (09/21/2023 6:35 AM CDT) GLUCOSE BY METER POCT 198(H) 70 - 99 mg/dL 09/21/2023 6:45 AM CDT UR LABORATORY POC Blood, Capillary BLOOD SPECIMEN / Unknown 09/21/2023 6:35 AM CDT 09/21/2023 6:45 AM CDT Laura Wisdom MD LAB - BEAKER POCT UR LABORATORY POC [facility] Acute Care Lab [facility], [address] [phone] * (ABNORMAL) Glucose by meter (09/21/2023 5:30 AM CDT) GLUCOSE BY METER POCT 226(H) 70 - 99 mg/dL 09/21/2023 5:44 AM CDT UR LABORATORY POC Blood, Capillary BLOOD SPECIMEN / Unknown 09/21/2023 5:30 AM CDT 09/21/2023 5:44 AM CDT Laura JOHNSON - BEAKER POCT Performing Organization Address City/[facility]/ZIP Co de Phone Number UR LABORATORY POC [facility], [address] [phone] * Hepatitis B surface antigen (09/21/2023 5:22 AM CDT) Hepatitis B Surface Antigen Nonreactive Nonreactive 09/22/2023 9:07 AM CDT UU LABORATORY Blood STRUCTURE OF RIGHT UPPER LIMB / Unknown Venipuncture / Unknown 09/21/2023 5:22 AM CDT 09/21/2023 5:34 AM CDT Kayden Lee MD LAB - BLOOD ORDER PARKER UU LABORATORY [facility] Core Lab [address] [facility], [address] [place] [address] * (ABNORMAL) Creatinine (09/21/2023 5:22 AM CDT) Creatinine 0.96(H) 0.51 - 0.95 mg/dL 09/21/2023 6:02 AM CDT UR LABORATORY GFR Estimate 79 >60 mL/min/1.7 3m2 09/21/2023 6:02 AM CDT UR LABORATORY Comment:eGFR calculated usin 2020 CKD-EPI equation. Blood STRUCTURE OF RIGHT UPPER LIMB / Unknown Venipuncture / Unknown 09/21/2023 5:22 AM CDT 09/21/2023 5:34 AM CDT Brittani Gomez MD LAB - BLOOD ORDERABL ES UR LABORATORY [facility] Acute Care Lab [address] [facility], [address] [place] [address] * (ABNORMAL) CBC with platelets (09/21/2023 5:22 AM CDT) WBC Count 18.9(H) 4.0 - 11.0 10e3/uL [...] LAB - BLOOD ORDERABL ES UR LABORATORY [facility] Acute Care Lab [address] [place] [address], Room [place] [phone] [address] * AST (09/21/2023 5:22 AM CDT) AST 26 0 - 45 U/L 09/21/2023 6:0 2 AM CDT UR LABORATORY Blood STRUCTURE OF RIGHT UPPER LIMB / Unknown Venipuncture / Unknown 09/21/2023 5:22 AM CDT 09/21/2023 5:34 AM CDT Brittani Gomez MD LAB - BLOOD ORDERABL ES UR LABORATORY [facility] Acute Care Lab [address] [place] [address], [address] * ALT (09/21/2023 5:22 AM CDT) ALT 20 0 - 50 U/L 09/21/2023 6:0 2 AM CDT UR LABORATORY Blood STRUCTURE OF RIGHT UPPER LIMB / Unknown Venipuncture / Unknown 09/21/2023 5:22 AM CDT 09/21/2023 5:34 AM CDT Brittani Gomez MD LAB - BLOOD ORDERABL ES UR LABORATORY [facility] Acute Care Lab [address] [place] [address], Room [address] * (ABNORMAL) Glucose by meter (09/21/2023 4:28 AM CDT) GLUCOSE BY METER POCT 169(H) 70 - 99 mg/dL 09/21/2023 5:30 AM CDT UR LABORATORY POC Blood, Capillary BLOOD SPECIMEN / Unknown 09/21/2023 4:28 AM CDT 09/21/2023 5:30 AM CDT Laura JOHNSON - BEAKER POCT Performing Organization Address City/[facility]/ZIP Co de Phone Number UR LABORATORY POC [facility] Acute Care Lab [address] [place] [address], Room [address] [phone] * (ABNORMAL) Glucose by meter (09/21/2023 2:31 AM CDT) GLUCOSE BY METER POCT 131(H) 70 - 99 mg/dL 09/21/2023 2:41 AM CDT UR LABORATORY POC Blood, Capillary BLOOD SPECIMEN / Unknown 09/21/2023 2:31 AM CDT 09/21/2023 2:41 AM CDT Laura GUTIERREZ POCT Performing Organization Address [facility]/ZIP Co de Phone Number UR LABORATORY POC [facility] [address] [place] [address], Room [address] [phone] * (ABNORMAL) Glucose by meter (09/21/2023 1:29 AM CDT) GLUCOSE BY METER POCT 104(H) 70 - 99 mg/dL 09/21/2023 1:38 AM CDT UR LABORATORY POC Blood, Capillary BLOOD SPECIMEN / Unknown 09/21/2023 1:29 AM CDT 09/21/2023 1:38 AM CDT Laura GUTIERREZ POCT UR LABORATORY POC [facility] Acute Care Lab [address] [place] [address], [address] [phone] * (ABNORMAL) Glucose by meter (09/21/2023 12:30 AM CDT) GLUCOSE BY METER POCT 122(H) 70 - 99 mg/dL 09/21/2023 12:40 AM CDT UR LABORATORY POC Blood, Capillary BLOOD SPECIMEN / Unknown 09/21/2023 12:30 AM CDT 09/21/2023 12:40 AM CDT Laura Wisdom MD LAB - BEGERMÁN POCT UR LABORATORY POC [facility] Acute Care Lab [address] [place] [address], [address] [phone] * (ABNORMAL) Glucose by meter (09/20/2023 11:29 PM CDT) GLUCOSE BY METER POCT 147(H) 70 - 99 mg/dL 09/20/2023 11:38 PM CDT UR LABORATORY POC Blood, Capillary BLOOD SPECIMEN / Unknown 09/20/2023 11:29 PM CDT 09/20/2023 11:38 PM CDT Laura JOHNSON - MATT POCT Performing Organization Address City/[facility]/ZIP Co de Phone Number UR LABORATORY POC [facility] [address] [place] [address], Room [address] [phone] * (ABNORMAL) Glucose by meter (09/20/2023 10:33 PM CDT) GLUCOSE BY METER POCT 120(H) 70 - 99 mg/dL 09/20/2023 10:44 PM CDT UR LABORATORY POC Blood, Capillary BLOOD SPECIMEN / Unknown 09/20/2023 10:33 PM CDT 09/20/2023 10:44 PM CDT Laura GUTIERREZ POCT UR LABORATORY POC [facility] Acute Care Lab [address] [place] [address], [address] [phone], [facility] * (ABNORMAL) Glucose by meter (09/20/2023 9:35 PM CDT) GLUCOSE BY METER POCT 157(H) 70 - 99 mg/dL 09/20/2023 10:38 PM CDT UR LABORATORY POC Blood, Capillary BLOOD SPECIMEN / Unknown 09/20/2023 9:35 PM CDT 09/20/2023 10:38 PM CDT Laura Wisdom MD LAB - BEAKER POCT UR LABORATORY POC [facility] Acute Care Lab [address] [facility], [address] [place] [address], [facility] * RBC and Platelet Morphology (09/20/2023 8:34 PM CDT) Pathologist [facility] Platelet Assessment Automated Count Confirmed. Platelet morphology [...] Crystals 09/20/2023 9:26 PM CDT UR LABORATORY [place] Bodies 09/20/2023 9:26 PM CDT UR LABORATORY [...] LAB - BLOOD ORDERABL ES UR LABORATORY [facility] Acute Care Lab [address] [place] [address], [address] * (ABNORMAL) Glucose by meter (09/20/2023 8:34 PM CDT) GLUCOSE BY METER POCT 145(H) 70 - 99 mg/dL 09/20/2023 8:47 PM CDT UR LABORATORY POC Blood, Capillary BLOOD SPECIMEN / Unknown 09/20/2023 8:34 PM CDT 09/20/2023 8:47 PM CDT Laura Wisdom MD LAB - BEAKER POCT UR LABORATORY POC [facility] [address] [place] [address], Room [place] [phone] * Creatinine (09/20/2023 8:34 PM CDT) Creatinine 0.68 0.51 - 0.95 mg/dL 09/20/2023 9:00 PM CDT UR LABORATORY GFR Estimate >90 >60 mL/min/1.7 3m2 09/20/2023 9:00 PM CDT UR LABORATORY Comment:eGFR calculated usin 2020 CKD-EPI equation. Blood STRUCTURE OF LEFT UPPER LIMB / Unknown Venipuncture / Unknown 09/20/2023 8:34 PM CDT 09/20/2023 8:39 PM CDT Brittani Gomez MD LAB - BLOOD ORDERABL ES UR LABORATORY [facility] Acute Care Lab [address] [place] [address], [address] * ALT (09/20/2023 8:34 PM CDT) ALT 19 0 - 50 U/L 09/20/2023 9:0 0 PM CDT UR LABORATORY Blood STRUCTURE OF LEFT UPPER LIMB / Unknown Venipuncture / Unknown 09/20/2023 8:34 PM CDT 09/20/2023 8:39 PM CDT Brittani Gomez MD LAB - BLOOD ORDERABL ES UR LABORATORY [facility] Care Lab [address] [place] [address], [address] * AST (09/20/2023 8:34 PM CDT) AST 24 0 - 45 U/L 09/20/2023 9:0 0 PM CDT UR LABORATORY Blood STRUCTURE OF LEFT UPPER LIMB / Unknown Venipuncture / Unknown 09/20/2023 8:34 PM CDT 09/20/2023 8:39 PM CDT Brittani Gomez MD LAB - BLOOD ORDERABL ES UR LABORATORY [facility] Acute Care Lab [address] [place] [address], [address] * (ABNORMAL) CBC with platelets (09/20/2023 8:34 PM CDT) WBC Count 8.9 4.0 - 11.0 10e3/uL 09/20/2023 9:25 PM CDT UR LABORATORY RBC Count 4.29 3.80 - 5.20 10e6/uL 09/20/2023 9:25 PM CDT UR LABORATORY Hemoglobin 10.5(L) 11.7 - 15.7 g/dL 09/20/2023 9:25 PM CDT UR LABORATORY Hematocrit 34.4(L) 35.0 - 47.0 % 09/20/2023 9:25 PM CDT UR LABORATORY MCV 80 78 - 100 fL 09/20/2023 9:25 PM CDT UR LABORATORY MCH 24.5(L) 26.5 - 33.0 pg 09/20/2023 9:25 PM CDT UR LABORATORY MCHC 30.5(L) 31.5 - 36.5 g/dL 09/20/2023 9:25 PM CDT UR LABORATORY RDW 17.2(H) 10.0 - 15.0 % 09/20/2023 9:25 PM CDT UR LABORATORY Platelet Count 116(L) 150 - 450 10e3/uL 09/20/2023 9:25 PM CDT UR LABORATORY Blood STRUCTURE OF LEFT UPPER LIMB / Unknown Venipuncture / Unknown 09/20/2023 8:34 PM CDT 09/20/2023 8:39 PM CDT Brittani Gomez MD LAB - BLOOD ORDERABL ES UR LABORATORY [facility] Acute [facility] Lab [address] [place] [address], Room [address] * (ABNORMAL) Glucose by meter (09/20/2023 7:29 PM CDT) GLUCOSE BY METER POCT 129(H) 70 - 99 mg/dL 09/20/2023 7:47 PM CDT UR LABORATORY POC Blood, Capillary BLOOD SPECIMEN / Unknown 09/20/2023 7:29 PM CDT 09/20/2023 7:47 PM CDT Laura Wisdom MD LAB - BEAKER POCT UR LABORATORY POC [facility] Acute Care Lab [address] [place] [address], [address] * (ABNORMAL) Glucose by meter (09/20/2023 6:33 PM CDT) GLUCOSE BY METER POCT 123(H) 70 - 99 mg/dL 09/20/2023 6:42 PM CDT UR LABORATORY POC Blood, Capillary BLOOD SPECIMEN / Unknown 09/20/2023 6:33 PM CDT 09/20/2023 6:42 PM CDT Laura JOHNSON - BEAKER POCT UR LABORATORY POC [facility] Acute Care Lab [address] [place] [address], [address] [phone] * (ABNORMAL) Glucose by meter (09/20/2023 5:27 PM CDT) GLUCOSE BY METER POCT 118(H) 70 - 99 mg/dL 09/20/2023 6:38 PM CDT UR LABORATORY POC Blood, Capillary BLOOD SPECIMEN / Unknown 09/20/2023 5:27 PM CDT 09/20/2023 6:38 PM CDT Laura OJHNSON - BEAKER POCT UR LABORATORY POC [facility] Lab [address] [place] [address], Room [address] [phone] * (ABNORMAL) Magnesium (09/20/2023 5:11 PM CDT) Magnesium 6.5(H) 1.7 - 2.3 mg/dL 09/20/2023 5:39 PM CDT UR LABORATORY Blood STRUCTURE OF LEFT UPPER LIMB / Unknown Venipuncture / Unknown 09/20/2023 5:11 PM CDT 09/20/2023 5:14 PM CDT Brittani Gomez MD LAB - BLOOD ORDERABL ES UR LABORATORY [facility] Acute Care Lab [address] [place] [address], Room [address] [phone] * Prepare red blood cells (unit) (09/20/2023 7:51 AM CDT) Blood Component Type Red Blood Cells UR BLOOD BANK Product Code [id number] UR BLOO D BANK Unit Status Transfused UR BLOO D BANK Unit Number [id number] UR B LOOD BANK CROSSMATCH Compatible UR BLOOD BANK CODING SYSTEM [id number] UR BLO OD BANK ISSUE DATE AND TIME [id number] UR BLOOD BANK UNIT ABO/RH A- UR BLOOD BANK UNIT TYPE ISBT 0600 UR BL OOD BANK 09/20/2023 7:51 AM CDT Cecy Mabry MD BLOOD BANK PRODUCT O RDERABLES UR BLOOD BANK [facility] Lab [address] [place] [address], [address] * (ABNORMAL) Glucose by meter (09/20/2023 5:51 AM CDT) GLUCOSE BY METER POCT 143(H) 70 - 99 mg/dL 09/20/2023 5:58 AM CDT UR LABORATORY POC Blood, Capillary BLOOD SPECIMEN / Unknown 09/20/2023 5:51 AM CDT 09/20/2023 5:58 AM CDT Najma Bell MD LAB - [facility] UR LABORATORY POC [facility] Acute Care Lab [address] [place] [address], [address] * ABO and Rh (09/20/2023 5:36 AM CDT) ABO/RH(D) A NEG 09/20/2023 8:04 AM CDT UR BLOOD BANK SPECIMEN EXPIRATION DATE [id number] 09/20/2023 8:04 AM CDT UR BLOOD BANK Blood BLOOD SPECIMEN / Unknown Venipuncture-No Charge / Unknown 09/20/2023 5:36 AM CDT 09/20/2023 8:05 AM CDT Laura Wisdom MD LAB - BLOOD BANK T EST ORDER UR BLOOD BANK [facility] Blood [facility]onents Lab [address] [facility], [address] [place] [phone] * (ABNORMAL) CBC with platelets (09/20/2023 5:36 AM CDT) WBC Count 8.3 4.0 - 11.0 10e3/uL 09/20/2023 5:50 AM CDT UR LABORATORY RBC Count 4.18 3.80 - 5.20 10e6/uL 09/20/2023 5:50 AM CDT UR LABORATORY Hemoglobin 10.2(L) 11.7 - 15.7 g/dL 09/20/2023 5:50 AM CDT UR LABORATORY Hematocrit 32.7(L) 35.0 - 47.0 % 09/20/2023 5:50 AM CDT UR LABORATORY MCV 78 78 - 100 fL 09/20/2023 5:50 AM CDT UR LABORATORY MCH 24.4(L) 26.5 - 33.0 pg 09/20/2023 5:50 AM CDT UR LABORATORY MCHC 31.2(L) 31.5 - 36.5 g/dL 09/20/2023 5:50 AM CDT UR LABORATORY RDW 16.8(H) 10.0 - 15.0 % 09/20/2023 5:50 AM CDT UR LABORATORY Platelet Count 102(L) 150 - 450 10e3/uL 09/20/2023 5:50 AM CDT UR LABORATORY Blood STRUCTURE OF LEFT UPPER LIMB / Unknown Venipuncture / Unknown 09/20/2023 5:36 AM CDT 09/20/2023 5:44 AM CDT Geno Love MD LAB - BLOOD ORDERABL ES UR LABORATORY [facility] Acute Care Lab [address] [facility], [address] [place] [address], [facility] * (ABNORMAL) Comprehensive metabolic panel (09/20/2023 5:36 AM CDT) Sodium 133(L) 135 - 145 mmol/L 09/20/2023 [...] LAB - BLOOD ORDERABL ES UR LABORATORY [facility] Acute Care Lab [address] [facility], [address] [place] [address] * Hepatitis B core antibody (09/20/2023 12:10 [...] LAB - BLOOD ORDER PARKER UU LABORATORY [facility] [place] Core Lab [address] [facility], [address] [place] [address] * Hepatitis B Surface Antibody (09/20/2023 [...] LAB - BLOOD ORDER PARKER UU LABORATORY [facility] [place] [facility] [address] [facility], [address] [place] [phone] * (ABNORMAL) Hemoglobin A1c (09/20/2023 12:10 AM CDT) Hemoglobin A1C 7.4(H) <5.7 % 09/20/2023 4:17 AM CDT [facility] Comment: Normal <5.7% Prediabetes 5.7-6.4% ?? Diabetes 6.5% or higher Note: Adopted from ADA consensus guidelines. Blood STRUCTURE OF LEFT UPPER LIMB / Unknown Venipuncture / Unknown 09/20/2023 12:10 AM CDT 09/20/2023 12:13 AM CDT Cecy Mabry MD LAB - BLOOD ORDERABL ES Performing Organization Address City/[facility]/ZIP Co de Phone Number UR LABORATORY [facility] [address] [place] [address], Room [place] [phone] * (ABNORMAL) Glucose by meter (09/20/2023 12:10 AM CDT) GLUCOSE BY METER POCT 111(H) 70 - 99 mg/dL 09/20/2023 12:18 AM CDT [facility] LABORATORY POC Blood, Capillary BLOOD SPECIMEN / Unknown 09/20/2023 12:10 AM CDT 09/20/2023 12:18 AM CDT Najma Bell MD LAB - [facility] LABORATORY POC [facility] [address] [facility], Room [place] [phone] * Adult Type and Screen (09/20/2023 12:10 AM CDT) ABO/RH(D) A NEG 09/19/2023 11:57 PM CDT UR BLOOD BANK Antibody Screen Negative Negative 09/19/2023 11:57 PM CDT UR BLOOD BANK SPECIMEN EXPIRATION DATE [id number] 09/19/2023 11:57 PM CDT UR BLOOD BANK Blood STRUCTURE OF LEFT UPPER LIMB / Unknown Venipuncture / Unknown 09/20/2023 12:10 AM CDT 09/20/2023 12:13 AM CDT Cecy Mabry MD LAB - BLOOD BANK DIANE T ORDER BLOOD BANK [facility] [facility] [address] [facility], Room [address] * Treponema Abs w Reflex to RPR and Titer (09/20/2023 12:10 AM CDT) Pathologist [facility] Treponema Antibody Total Nonreactive Nonreactive 09/20/2023 10:50 AM CDT SPECIALTY CORE/PROT/EN DO Blood STRUCTURE OF LEFT UPPER LIMB / Unknown Venipuncture / Unknown 09/20/2023 12:10 AM CDT 09/20/2023 12:13 AM CDT Cecy Mabry MD LAB - BLOOD ORDERABL ES [facility] SPECIALTY CORE/PROT/ENDO Specialty Core/Prot/Endo [address] [facility], Room [address] * (ABNORMAL) Comprehensive Metabolic Panel (09/20/2023 12:10 AM CDT) Sodium 136 135 - 145 mmol/L 09/20/2023 12:38 AM CDT [facility] Potassium 4.3 3.4 - 5.3 mmol/L 09/20/2023 12:38 AM CDT [facility] Carbon Dioxide (CO2) 18(L) 22 - 29 mmol/L 09/20/2023 12:38 AM CDT [facility] Anion Gap 14 7 - 15 mmol/L 09/20/2023 12:38 AM CDT [facility] Urea Nitrogen 10.8 6.0 - 20.0 mg/dL 09/20/2023 12:38 AM CDT [facility] Creatinine 0.68 0.51 - 0.95 mg/dL 09/20/2023 12:38 AM CDT [facility] GFR Estimate >90 >60 mL/min/1.7 3m2 09/20/2023 12:38 AM CDT [facility] Comment:eGFR calculated us2020 CKD-EPI equation. Calcium 8.5(L) 8.8 - 10.4 mg/dL 09/20/2023 12:38 AM CDT [facility] Comment:Reference intervals for this test were updated on 09/08/2023 to reflect our healthy population more accurately. There may be differences in the flagging of prior results with similar values performed with this method. Those prior results can be interpreted in the context of the updated reference intervals. Chloride 104 98 - 107 mmol/L 09/20/2023 12:38 AM CDT [facility] Glucose 113(H) 70 - 99 mg/dL 09/20/2023 12:38 AM CDT [facility] Alkaline Phosphatase 155(H) 40 - 150 U/L 09/20/2023 12:38 AM CDT [facility] AST 19 0 - 45 U/L 09/20/2023 12:38 AM CDT [facility] ALT 14 0 - 50 U/L 09/20/2023 12:38 AM CDT [facility] Protein Total 6.5 6.4 - 8.3 g/dL 09/20/2023 12:38 AM CDT [facility] Albumin 3.4(L) 3.5 - 5.2 g/dL 09/20/2023 12:38 AM CDT [facility] Bilirubin Total 0.2 <=1.2 mg/dL 09/20/2023 12:38 AM CDT [facility] Blood STRUCTURE OF LEFT UPPER LIMB / Unknown Venipuncture / Unknown 09/20/2023 12:10 AM CDT 09/20/2023 12:13 AM CDT Cecy Mabry MD LAB - BLOOD ORDERABL ES UR LABORATORY [facility] [address] [facility], Room [address] [place] [address] * (ABNORMAL) CBC with platelets (09/20/2023 12:10 AM CDT) WBC Count 7.7 4.0 - 11.0 10e3/uL 09/20/2023 12:30 AM CDT [facility] RBC Count 4.19 3.80 - 5.20 10e6/uL 09/20/2023 12:30 AM CDT [facility] Hemoglobin 10.1(L) 11.7 - 15.7 g/dL 09/20/2023 12:30 AM CDT [facility] Hematocrit 32.8(L) 35.0 - 47.0 % 09/20/2023 12:30 AM CDT [facility] MCV 78 78 - 100 fL 09/20/2023 12:30 AM CDT [facility] MCH 24.1(L) 26.5 - 33.0 pg 09/20/2023 12:30 AM CDT [facility] MCHC 30.8(L) 31.5 - 36.5 g/dL 09/20/2023 12:30 AM CDT [facility] RDW 16.7(H) 10.0 - 15.0 % 09/20/2023 12:30 AM CDT [facility] Platelet Count 104(L) 150 - 450 10e3/uL 09/20/2023 12:30 AM CDT [facility] Blood STRUCTURE OF LEFT UPPER LIMB / Unknown Venipuncture / Unknown 09/20/2023 12:10 AM CDT 09/20/2023 12:13 AM CDT Cecy Mabry MD LAB - BLOOD ORDERABL ES UR LABORATORY [facility] [address] [facility], Room [address] [id number] * (ABNORMAL) UA with Microscopic reflex to [...] 09/20/2023 4:11 AM CDT [facility] Specific [place] Urine 1.020 1.003 - 1.035 09/20/2023 4:11 [...] LAB - URINE ORDERABL ES UR LABORATORY [facility] [address] [facility], Room [address] [place] [address] * (ABNORMAL) Protein random urine (09/20/2023 [...] LAB - URINE ORDERABL ES UR LABORATORY [facility] [address] [facility], Room [address] [place] [address] documented in this encounter Visit Diagnoses Diagnosis (spontaneous vaginal delivery)- Primary Normal delivery Preeclampsia, severe Severe pre-eclampsia, unspecified as to episode of care documented in this encounter Administered Medications Active Administered Medications - up to 3 most recent administrations Medication Order MAR Action Action Date Dose Rate Site acetaminophen (TYLENOL) tablet 650 mg 650 mg, Oral, EVERY 4 HOURS PRN, mild pain, fever, greater than or equal to 38 C /100.4 F (oral) or 38.5 C/ 101.4 F (core)., Starting on Thu09/21/23 at 0433, Maximum acetaminophen dose from all sources = 75 mg/kg/day not to exceed 4 grams/day., $Given 09/22/2023 11:45 PM CDT 650 mg $Given 09/22/2023 7:40 PM CDT 650 mg $Given 09/22/2023 3:42 PM CDT 650 mg carboprost (HEMABATE) injection 250 mcg 250 mcg, Intramuscular, EVERY 15 MIN PRN, other, ONLY for uterine atony with significant bleeding POST-DELIVERY, Starting on Thu09/21/23 at 0433, Notify provider IF uterine atony and clarify with provider medication preference. Administer only if directed by provider. Give with caution in patients with asthma, active pulmonary, hepatic, renal or cardiovascular disease., dextrose 50 % injection 25-50 mL 25-50 mL, Intravenous, EVERY 15 MIN PRN, low blood sugar, Administer over 1-5 Minutes, Starting on Thu09/21/23 at 0451, Use if have IV access, BG less than 70 mg/dL and meet dose criteria below: Dose if conscious and alert (or disorientated) and NPO = 25 mL Dose if unconscious / not alert = 50 mL Give first dose for initial blood glucose less than 70 mg/dL. If blood glucose at 15 minute recheck is less than or equal to 80 mg/dL continue to administer carbohydrate treatment every 15 minutes, as needed, based on blood glucose and assessment parameters until blood glucose level is above 80 mg/dL x 2 consecutive 15 minute checks. diphenhydrAMINE (BENADRYL) capsule 25 mg 25 mg, Oral, EVERY 6 HOURS PRN, itching, Starting on 09/20/23 at 0038 diphenhydrAMINE (BENADRYL) injection 25 mg 25 mg, Intravenous, EVERY 6 HOURS PRN, itching, Starting on Thu09/20/23 at 0038 $Given 09/20/2023 3:47 PM CDT 25 mg $Given 09/20/2023 12:53 AM CDT 25 mg docusate sodium (COLACE) capsule 100 mg 100 mg, Oral, DAILY, First dose on Thu09/21/23 at 0800, Hold for loose stools., $Given 09/22/2023 8:14 AM CDT 100 mg $Given 09/21/2023 8:14 AM CDT 100 mg glucagon injection 1 mg 1 mg, Subcutaneous, EVERY 15 MIN PRN, low blood sugar, May repeat x 1 only, Starting on Thu09/21/23 at 0451, May give SQ or IM. ONLY use glucagon IF patient has NO IV access AND is UNABLE to swallow AND blood glucose is LESS than or EQUAL to 50 mg/dL. glucose gel 15-30 g 15-30 g, Oral, EVERY 15 MIN PRN, low blood sugar, Starting on Thu09/21/23 at 0451, Give first dose for initial blood glucose less than 70 mg/dL per the dosing instructions below. If blood glucose at 15 minute rechecks is still less than or equal to 80 mg/dL, continue to administer doses per blood glucose parameters every 15 minutes, as needed, until blood glucose level is at or above 80 mg/dL x 2 consecutive 15 minute checks. Dosing Instructions: ~If patient is conscious and able to swallow and NO enteral tube For initial BG 51-69mg/dL OR 15 minute recheck BG 51- 80 mg/dL - give 15 g For BG less than or equal to 50 mg/dL - give 30 g ~ If Enteral tube For initial BG 51-69mg/dL OR 15 minute recheck BG 51- 80 mg/dL - give apple juice 120 mL (4 oz or 15 g of CHO) via enteral tube For BG less than or equal to 50 mg/dL - Give apple juice 240 mL (8 oz or 30 g of CHO) via enteral tube ~Oral gel is preferable for conscious and able to swallow patient. ~IF gel unavailable or patient refuses may provide apple juice per Enteral tube dosing instructions. Document juice on I and O flowsheet. ibuprofen (ADVIL/MOTRIN) tablet 800 mg 800 mg, Oral, ONCE PRN, other, for mild to moderate pain, Starting on Thu09/20/23 at 0847, For 1 dose, Give 30-60 minutes post procedure x 1 dose. Do not give within 6 hours of ketorolac dose. Give with food. ibuprofen (ADVIL/MOTRIN) tablet 800 mg 800 mg, Oral, EVERY 6 HOURS PRN, other, cramping, Starting on Thu09/21/23 at 0433, Start 6 hours after ketorolac is completed (if ordered). Max dose: 3200 mg/day Give with food., $Given 09/22/2023 8:36 PM CDT 800 mg $Given 09/22/2023 2:25 PM CDT 800 mg $Given 09/22/2023 8:14 AM CDT 800 mg insulin aspart (NovoLOG) injection (RAPID ACTING) 1-7 Units, Subcutaneous, 3 TIMES DAILY BEFORE MEALS, First dose on Thu09/21/23 at 0730, Correction Scale - MEDIUM INSULIN RESISTANCE DOSING Do Not give Correction Insulin if Pre-Meal BG less than 140. For Pre-Meal BG 140 - 189 give 1 unit. For Pre-Meal BG 190 - 239 give 2 units. For Pre-Meal BG 240 - 289 give 3 units. For Pre-Meal BG 290 - 339 give 4 units. For Pre-Meal BG 340- 389 give 5 units. For Pre-Meal BG 390-439 give 6 units For Pre-Meal BG greater than or equal to 440 give 7 units. To be given with prandial insulin, and based on pre-meal blood glucose. Administering insulin within 5 minutes of the start of the meal is ideal. Administer insulin no more than 30 minutes after the start of the meal, unless directed otherwise by provider. Notify provider if glucose greater than or equal to 350 mg/dL after administration of correction dose. $Given 09/22/2023 7:46 AM CDT 1 Units insulin aspart (NovoLOG) injection (RAPID ACTING) 1-5 Units, Subcutaneous, AT BEDTIME, First dose on Thu09/21/23 at 0500, MEDIUM INSULIN RESISTANCE DOSING Do Not give Bedtime Correction Insulin if BG less than 200. For BG 200 - 249 give 1 units. For BG 250 - 299 give 2 units. For BG 300 - 349 give 3 units. For BG 350 -399 give 4 units. For BG greater than or equal to 400 give 5 units. Notify provider if glucose greater than or equal to 350 mg/dL after administration of correction dose. ketorolac (TORADOL) injection 30 mg 30 mg, Intravenous, ONCE PRN, moderate pain, Starting on Thu09/20/23 at 0847, For 1 dose, Give immediately x 1 dose. Any patient with renal function concerns should have a serum creatinine drawn and creatinine clearance calculated. If creatinine clearance is 30-50 ml/min give 15 mg, if less than 30 ml/min do not administer ketorolac. Can cause pain on injection. If ordered intravenously (IV) : administer through a running maintenance fluid over 1 minute followed by a flush. If patient complains of pain on injection, may dilute 15-30 mg in 5 mL and push over 1 to 2 minutes. ketorolac (TORADOL) injection 30 mg 30 mg, Intramuscular, ONCE PRN, moderate pain, Starting on Thu09/20/23 at 0847, For 1 dose, Give 30-60 minutes post procedure x 1 dose. Any patient with renal function concerns should have a serum creatinine drawn and creatinine clearance calculated. If creatinine clearance is 30-50 ml/min give 15 mg, if less than 30 ml/min do not administer ketorolac. Can cause pain on injection. If ordered intravenously (IV) : administer through a running maintenance fluid over 1 minute followed by a flush. If patient complains of pain on injection, may dilute 15-30 mg in 5 mL and push over 1 to 2 minutes. labetalol (NORMODYNE/TRANDATE) injection 20-80 mg 20-80 mg, Intravenous, EVERY 10 MIN PRN, other, Acute Onset Severe Hypertension Medication Algorithm, Administer over 2 Minutes, Starting on 09/20/23 at 0002, ~ Begin administration if criteria for acute onset hypertension met. ~ Administer IV labetalol 20 mg over 2 minutes for first dose. ~ IF SBP GREATER than or EQUAL to 160 or DBP GREATER than or EQUAL to 110 at 10 minutes following 1st dose of labetalol, give 2nd dose of IV labetalol 40 mg over 2 minutes ~ IF SBP GREATER than or EQUAL to 160 or DBP GREATER than or EQUAL to 110 at 10 minutes following 2nd dose of labetalol, give 3rd dose of IV labetalol 80 mg over 2 minutes ~ IF SBP GREATER than or EQUAL to 160 or DBP GREATER than or EQUAL to 110 at 10 minutes following 3rd dose of labetalol, progress to IV hydralazine 10 mg and notify provider. ~ DO NOT give if history of asthma or congestive heart failure. HOLD Labetalol IF maternal HR LESS than 60 AND notify provider for further orders ~ MAX recommended daily dose: 300 mg/24hours. $Given 09/20/2023 4:23 PM CDT 20 m g $Given 09/20/2023 9:59 AM CDT 20 mg $Given 09/20/2023 3:01 AM CDT 40 mg lactated ringers infusion at 10-125 mL/hr, Intravenous, CONTINUOUS, Titrate lactated ringers rate to obtain total IV intake of no more than 125 mL/hour, Starting on 09/20/23 at 0030, Until Discontinued $New Bag 09/21/2023 4:02 PM CDT 50 mL/hr 50 mL/hr Rate/Dose Change 09/20/2023 7:36 PM CDT 10 mL/hr 10 mL/h r Rate/Dose Verify 09/20/2023 3:33 PM CDT 50 mL/hr 50 mL/h r loperamide (IMODIUM) capsule 4 mg 4 mg, Oral, ONCE PRN, other, Give with first dose of carboprost (HEMABATE), Starting on Thu09/21/23 at 0433, For 1 dose, May give only after delivery., misoprostol (CYTOTEC) tablet 400 mcg 400 mcg, Oral, GIVE ONCE PRN AND REPEAT ACCORDING TO INSTRUCTIONS, post- hemorrhage, Starting on Thu09/21/23 at 0433, Administer only if directed by provider. Max administrations: 4 doses, misoprostol (CYTOTEC) tablet 800 mcg 800 mcg, Rectal, GIVE ONCE PRN AND REPEAT ACCORDING TO INSTRUCTIONS, post- hemorrhage, Starting on Thu09/21/23 at 0433, Give rectally if unable to take oral without complications. Administer only if directed by provider. Max administrations: 4 doses., nalbuphine (NUBAIN) injection 2.5-5 mg 2.5-5 mg, Intravenous, EVERY 6 HOURS PRN, itching, Starting on Thu09/20/23 at 0106, Give 2.5 mg initially. If pruritus persists after 30 minutes, may give additional 2.5 mg. If effective, then repeat effective dose Q6H PRN pruritus. naloxone (NARCAN) injection 0.2 mg 0.2 mg, Intravenous, EVERY 2 MIN PRN, opioid reversal, Starting on Thu09/21/23 at 0444, Administer intravenous route when available and notify provider when administered. For unintended sedation or respiratory depression if all of the below criteria are met: ~ respiratory rate LESS than or EQUAL to 8. ~SaO2 less than 92% and or/end-tidal CO2 is greater than 50. ~ the patient is receiving an opioid, has unintended sedations assessed as RASS (-3), and is currently not on mechanical ventilation. RASS scale moderate (-3) is movement or eye opening to voice but no eye contact. Patient Monitoring Once the patient has demonstrated a response to the naloxone, continue to monitor respiratory rate, depth, oxygen saturation and end-tidal CO2 (if available) every 15 minutes x 2, then every 30 minutes x 2, then every 1 hour x 1 after each naloxone dose. Consider transfer to ICU if patient respiratory parameters have not improved after 4 naloxone doses. naloxone (NARCAN) injection 0.2 mg 0.2 mg, Intramuscular, EVERY 2 MIN PRN, opioid reversal, Starting on Thu09/21/23 at 0444, Administer intramuscular if an intravenous route is not available and notify provider when administered. For unintended sedation or respiratory depression if all of the below criteria are met: ~ respiratory rate LESS than or EQUAL to 8. ~SaO2 less than 92% and or/end-tidal CO2 is greater than 50. ~ the patient is receiving an opioid, has unintended sedations assessed as RASS (-3), and is currently not on mechanical ventilation. RASS scale moderate (-3) is movement or eye opening to voice but no eye contact. Patient Monitoring Once the patient has demonstrated a response to the naloxone, continue to monitor respiratory rate, depth, oxygen saturation and end-tidal CO2 (if available) every 15 minutes x 2, then every 30 minutes x 2, then every 1 hour x 1 after each naloxone dose. Consider transfer to ICU if patient respiratory parameters have not improved after 4 naloxone doses. naloxone (NARCAN) injection 0.4 mg 0.4 mg, Intravenous, EVERY 2 MIN PRN, opioid reversal, Starting on Thu09/21/23 at 0444, Administer intravenous route when available and notify provider when administered. For unintended sedation or respiratory depression if all of the below criteria are met: ~ respiratory rate LESS than or EQUAL to 8. ~ SaO2 less than 92% and or/end-tidal CO2 is greater than 50. ~ the patient is receiving an opioid, has unintended sedation assessed as RASS (-4) or (-5) and patient is currently not on mechanical ventilation. RASS scale (-4) is deep sedation with no response to voice but movement or eye opening to physical stimulation. RASS scale (-5) is unarousable. Patient Monitoring Once the patient has demonstrated a response to the naloxone, continue to monitor respiratory rate, depth, oxygen saturation and end-tidal CO2 (if available) every 15 minutes x 2, then every 30 minutes x 2, then every 1 hour x 1 after each naloxone dose. Consider transfer to ICU if patient respiratory parameters have not improved after 4 naloxone doses. naloxone (NARCAN) injection 0.4 mg 0.4 mg, Intramuscular, EVERY 2 MIN PRN, opioid reversal, Starting on Thu09/21/23 at 0444, Administer intramuscular if an intravenous route is not available and notify provider when administered. For unintended sedation or respiratory depression if all of the below criteria are met: ~ respiratory rate LESS than or EQUAL to 8. ~ SaO2 less than 92% and or/end-tidal CO2 is greater than 50. ~ the patient is receiving an opioid, has unintended sedation assessed as RASS (-4) or (-5) and patient is currently not on mechanical ventilation. RASS scale (-4) is deep sedation with no response to voice but movement or eye opening to physical stimulation. RASS scale (-5) is unarousable. Patient Monitoring Once the patient has demonstrated a response to the naloxone, continue to monitor respiratory rate, depth, oxygen saturation and end-tidal CO2 (if available) every 15 minutes x 2, then every 30 minutes x 2, then every 1 hour x 1 after each naloxone dose. Consider transfer to ICU if patient respiratory parameters have not improved after 4 naloxone doses. NIFEdipine ER OSMOTIC (PROCARDIA XL) 24 hr tablet 60 mg 60 mg, Oral, DAILY, First dose on Thu09/20/23 at 1800, DO NOT CRUSH. $Given 09/22/2023 8:14 AM CDT 60 mg $Given 09/21/2023 8:14 AM CDT 60 mg $Given 09/20/2023 5:12 PM CDT 60 mg oxytocin (PITOCIN) 30 units in 500 mL 0.9% NaCl infusion 100-340 mL/hr, Intravenous, CONTINUOUS PRN, After delivery to prevent uterine atony, Starting on 09/20/23 at 0847, Give after delivery to prevent uterine atony per provider direction. Administer 340 mL/hr over 30 minutes for a total of 170 mL, then decrease to 100 mL/hr until infusion complete (about 3.5 hours) or per provider direction. Start new bag at delivery. Discontinue or saline lock peripheral IV per nurse discretion. $New Bag 09/21/2023 4:23 AM CDT 100 mL/hr 100 mL/hr Rate/Dose Change 09/21/2023 3:24 AM CDT 340 mL/hr 340 mL/ hr sodium chloride (PF) 0.9% PF flush 3 mL 3 mL, Intracatheter, EVERY 8 HOURS, First dose on 09/20/23 at 0030, to lock peripheral IV dormant line $Given 09/22/2023 11:46 PM CDT 3 mLs $Given 09/22/2023 6:09 PM CDT 3 mLs $Given 09/22/2023 8:14 AM CDT 3 mLs sodium chloride (PF) 0.9% PF flush 3 mL 3 mL, Intracatheter, EVERY 1 MIN PRN, line flush, other, to ensure patency or to lock dormant line, Starting on Thu09/20/23 at 0002 $Given 09/21/2023 10:45 AM CDT 3 mLs sodium chloride 0.9% BOLUS 1-250 mL Intravenous, 1-250 mL, EVERY 1 HOUR PRN, To prime infusion tubing AND flush blood through tubing POST blood component administration., Starting on Thu09/22/23 at 1233, IF blood component ordered, nurse to administer rate and volume of fluid pre-blood component administration to PRIME tubing AND to FLUSH blood through tubing post blood component administration UNTIL tubing is clear of visible blood. Use MINIMUM volume necessary for pre and post blood component administration. IF duplicate order nurse to discontinue the duplicate order. , Blood components must be fully transfused within four hours of spiking the component due to the risk of bacterial growth. Post-transfusion flushing of the line should occur immediately if the four hour limit has been reached. Inactive Administered Medications - up to 3 most recent administrations Medication Order MAR Action Action Date Dose Rate Site acetaminophen (TYLENOL) tablet 650 mg 650 mg, Oral, EVERY 4 HOURS PRN, mild pain, Starting on Thu09/20/23 at 0931, Maximum acetaminophen dose from all sources = 75 mg/kg/day not to exceed 4 grams/day. $Given 09/20/2023 9:48 AM CDT 650 mg carboprost (HEMABATE) injection 250 mcg 250 mcg, Intramuscular, EVERY 15 MIN PRN, other, ONLY for uterine atony with significant bleeding POST-DELIVERY, Starting on 09/19/23 at 2356, Notify provider IF uterine atony and clarify with provider medication preference. Administer only if directed by provider. Give with caution in patients with asthma, active pulmonary, hepatic, renal or cardiovascular disease., Intrapartum $Given 09/21/2023 3:40 AM CDT 250 mcg dextrose 10% infusion at 0-100 mL/hr, Intravenous, CONTINUOUS PRN, Set current rate per OB DIAB INSULIN Infusion in Labor algorithm. Discontinue when discontinuing insulin drip., Intrapartum, Starting on Thu09/20/23 at 0849, Until 09/21/23 at 0436 Rate/Dose Change 09/20/2023 10:36 PM CDT 50 mL/hr $New Bag 09/20/2023 7:30 PM CDT 50 mL/hr fentaNYL (PF) (SUBLIMAZE) injection 50-100 mcg 50-100 mcg, Intravenous, ONCE, On [place] 09/20/23 at 0230, For 1 dose $Given 09/20/2023 2:38 AM CDT 100 mcg fentaNYL (SUBLIMAZE) 2 mcg/mL, ROPivacaine (NAROPIN) 0.1% in NaCl 0.9% for PIB + PCEA PREMIX PIB BOLUS (mL): 6, PIB BOLUS INTERVAL (Minutes): 40, PCEA dose (mL): 6, PCEA Lockout Interval (min): 10 minutes, Hour Limit (mL): 32, PIB - Programmed Intermittent Bolus (Epidural) PCEA - Patient Controlled Epidural Analgesia Initial PIB Next Bolus will be scheduled for 30 minutes after infusion STARTED. PIB Bolus: Range 0-9 mL PIB Bolus Interval: Range 30-60 minutes PCEA Dose: Range 0-10 mL PCEA Lockout: Range 10-60 minutes One-hour limit: Range 0.1-50 mL Absolutely no anticoagulants, thrombolytics or antiplatelet medications or other opioid analgesics or other sedatives without prior notification of anesthesiology. For CADD cassettes, pharmacy to send epidural tubing set., Routine $New Syringe/Cartridge 09/20/2023 11:26 PM CDT $New Syringe/Cartridge 09/20/2023 6:06 AM CDT insulin glargine (LANTUS PEN) injection 10 Units 10 Units, Subcutaneous, EVERY MORNING BEFORE BREAKFAST, First dose (after last modification) on [place] 09/20/23 at 0730, Intrapartum $Given 09/20/2023 6:44 AM CDT 10 Units Left Arm insulin regular (MYXREDLIN) 1 unit/mL infusion Intravenous, CONTINUOUS PRN, other, Start infusion per administration instructions., Starting on Thu09/20/23 at 0849, Follow OB DIAB INSULIN Infusion in Labor algorithm. Initiate drip with Algorithm #1. For patients with type 1 diabetes initiate insulin and D10W per algorithm when blood glucose is > 70 mg/dL. For patients with type 2 or gestational diabetes initiate insulin when blood glucose is > 110 mg/dL for 2 consecutive 1-hour glucose checks. Maintain glucose level between 70 - 110 mg/dL. For patients with gestational diabetes (GDM), stop insulin infusion and D10W following delivery of placenta. For patients with Type 2 diabetes who did not require insulin during , stop the insulin infusion following delivery of placenta. For patients with Type 1 and Type 2 diabetes on insulin, initiate subcutaneous insulin per orders then stop insulin infusion and D10W 2 hours after first subcutaneous insulin dose. For patients transitioning to ambulatory insulin infusion pump use IP DIAB CONTINUOUS SUBCUTANEOUS INSULIN INFUSION VIA AMBULATORY PUMP order set, stop insulin drip 1 hour after resumption of ambulatory pump., Intrapartum Rate/Dose Change 09/21/2023 9:31 AM CDT 6 Units/hr 6 mL/hr Rate/Dose Change 09/21/2023 8:40 AM CDT 4 Units/hr 4 mL/hr Rate/Dose Change 09/21/2023 7:38 AM CDT 8 Units/hr 8 mL/hr lactated ringers BOLUS 500 mL Intravenous, 500 mL, ONCE PRN, IF patient to have epidural or intrathecal narcotics AND patient is pre-eclamptic. , Starting on 09/19/23 at 2356, For 1 dose, IV bolus must be initiated 15-30 min prior to epidural or intrathecal IF pre-eclamptic, then IV fluids per labor orders. Nurse may discontinue this order if duplicate., Intrapartum $New Bag 09/20/2023 4:25 AM CDT 500 mLs lactated ringers BOLUS 500 mL Intravenous, 500 mL, ONCE PRN, IF patient to have epidural or intrathecal narcotics AND patient is pre-eclamptic, Starting on 09/20/23 at 0107, For 1 dose, IV bolus must be initiated 15-30 min prior to epidural or intrathecal IF pre-eclamptic, then IV fluids per labor orders. Nurse may discontinue this order if duplicate., Intrapartum $New Bag 09/21/2023 4:03 AM CDT 500 mLs loperamide (IMODIUM) capsule 2 mg 2 mg, Oral, EVERY 2 HOURS PRN, other, after each loose stool, Starting on 09/19/23 at 2356, May give only after delivery. For diarrhea occurring after carboprost (HEMABATE) administration ONLY. Maximum 16 mg/day. Do NOT give stool softeners or laxatives until diarrhea is resolved., Intrapartum $Given 09/21/2023 4:06 AM CDT 2 mg magnesium sulfate infusion 2 g/hr (50 mL/hr), Intravenous, CONTINUOUS, Starting on 09/20/23 at 0030, For 2 days 4 hours, STOP infusion and then notify provider IF signs of magnesium toxicity appear. Must run concurrently with maintenance IV fluid. Insert at closest possible Y-site in main-line IV. Total IV fluid intake should not exceed 125 mL/hr. Rate/Dose Verify 09/21/2023 7:31 PM CDT 2 g/hr 50 mL/hr Rate/Dose Verify 09/21/2023 3:25 PM CDT 2 g/hr 50 mL/h r $New Bag 09/21/2023 9:35 AM CDT 2 g/hr 50 mL/hr metoclopramide (REGLAN) injection 10 mg 10 mg, Intravenous, Administer over 2 Minutes, EVERY 6 HOURS PRN, nausea, vomiting, Starting on 09/19/23 at 2356, This is Step 1 of OB nausea and vomiting management. If nausea is not resolved in 30 minutes, go to Step 2 (Zofran). Avoid use if patient has full bowel obstruction or perforation., Intrapartum $Given 09/20/2023 3:47 PM CDT 10 mg $Given 09/20/2023 1:15 AM CDT 10 mg misoprostol (cervical ripening) (CYTOTEC) quarter-tab 25 mcg 25 mcg, Oral, EVERY 2 HOURS PRN, cervical ripening, Starting on 09/20/23 at 0140, For 12 doses, After 24 hours of administration, if ineffective, provider may consider change to agent or mode of cervical ripening Discontinue further dosing if: - Uterine tachysystole - Cervix favorable - Villegas Score 6 or greater - Active vaginal bleeding - Active labor - Abnormal FHR tracing - Adverse maternal reactions (i.e., fever or nausea) Provider: Delay oxytocin induction/augmentation at least 2 hours after the last dose of misoprostol (CYTOTEC)., Intrapartum $Given 09/20/2023 6:59 AM CDT 25 mcg $Given 09/20/2023 4:41 AM CDT 25 mcg $Given 09/20/2023 2:25 AM CDT 25 mcg misoprostol (CYTOTEC) tablet 400 mcg 400 mcg, Oral, GIVE ONCE PRN AND REPEAT ACCORDING TO INSTRUCTIONS, post- hemorrhage, Starting on 09/19/23 at 2356, Administer only if directed by provider. Max administrations: 4 doses, Intrapartum $Given 09/21/2023 3:30 AM CDT 400 mcg ondansetron (ZOFRAN ODT) ODT tab 4 mg 4 mg, Oral, EVERY 6 HOURS PRN, nausea, vomiting, Starting on 09/19/23 at 2356, This is Step 2 of OB nausea and vomiting management. Give If nausea not resolved in 30 minutes after giving metoclopramide (REGLAN). If nausea is not resolved in 15 minutes, go to Step 3 (Compazine). With dry hands, peel back foil backing and gently remove tablet. Do not push oral disintegrating tablet through foil backing. Administer immediately on tongue and oral disintegrating tablet dissolves in seconds, then swallow with saliva. Liquid not required., Intrapartum $Given 09/20/2023 9:48 AM CDT 4 mg oxyCODONE (ROXICODONE) tablet 5 mg 5 mg, Oral, ONCE PRN, moderate pain, severe pain, Starting on 09/21/23 at 0438, For 1 dose $Given 09/21/2023 5:03 AM CDT 5 mg oxytocin (PITOCIN) 30 units in 500 mL 0.9% NaCl infusion 1-26 dominick-units/min (1-26 mL/hr), Intravenous, CONTINUOUS, Starting on 09/20/23 at 0900, Start infusion at 2 dominick-units/min. Increase by 2 dominick-units/min every 30 minutes until contractions are 2-3 minutes apart, lasting 45 to 60 seconds in duration to achieve labor progress. Max rate is 26 milliunits/min. Do NOT go higher without a provider order. If oxytocin (PITOCIN) infusion is discontinued and off for less than 30 minutes, restart infusion at half of previous oxytocin (PITOCIN) rate. If oxytocin (PITOCIN) infusion has been discontinued equal to or greater than 30 minutes, begin at initial dose. IF another cervical ripening medication is ordered wait 60 minutes after oxytocin (PITOCIN) infusion is stopped before administering cervical ripening medication., Intrapartum Rate/Dose Change 09/21/2023 1:02 AM CDT 26 dominick-units/min 26 mL/hr Rate/Dose Verify 09/20/2023 11:00 PM CDT 24 dominick-units/mi n 24 mL/hr Rate/Dose Change 09/20/2023 10:55 PM CDT 24 dominick-units/mi n 24 mL/hr penicillin G potassium 3 Million Units in D5W 50 mL intermittent infusion Routine, 3 Million Units, Intravenous, EVERY 4 HOURS, First dose on 09/20/23 at 1300, To be given until delivery., Indications: Group B Strep, Intrapartum $New Bag 09/21/2023 1:31 AM CDT 3 Million Units 100 mL/hr $New Bag 09/20/2023 9:19 PM CDT 3 Million Units 100 mL/h r $New Bag 09/20/2023 5:20 PM CDT 3 Million Units 100 mL/h r penicillin G potassium 5 million units vial to attach to NS 100 mL bag STAT, 5 Million Units, Intravenous, ONCE, On 09/20/23 at 0900, For 1 dose, Loading Dose. Active upon active labor status., Indications: Group B Strep, Intrapartum $New Bag 09/20/2023 9:28 AM CDT 5 Million Units tranexamic acid 1 g in 100 mL NS IV bag (premix) 1 g, Intravenous, Administer over 10 Minutes, EVERY 30 MIN PRN, Post- hemorrhage (PPH), Starting on 09/19/23 at 2356, For 2 doses, Provider consultation REQUIRED and MUST be administered as soon as the ONSET of bleeding AND within 3 hours of regardless of cause of the PPH (atony OR laceration). IF bleeding continues, a 2nd dose may be administered after 30 minutes. IF concern for DIC (Disseminated Intravascular Coagulation), obtain coagulation studies PRIOR to administration. Contraindications include: history of PE (Pulmonary Emboli), DVT (Deep Vein Thrombosis) and current Subarachnoid hemorrhage and active DIC. Administer only if directed by provider., Intrapartum $Given 09/21/2023 3:37 AM CDT 1 g documented in this encounter Active and Recently Administered Medications Times are shown in CDT. Scheduled Medication Order 09/21/2023 09/22/2023 09/23/2023 docusate sodium (COLACE) capsule 100 mg 100 mg, Oral, DAILY, First dose on Thu09/21/23 at 0800, Hold for loose stools., 0814 ($Given - Provider: Gabby Chatterjee RN) 0814 ($Given - Provider: Ina Swan RN) 0800 (Due) insulin aspart (NovoLOG) injection (RAPID ACTING) 1-7 Units, Subcutaneous, 3 TIMES DAILY BEFORE MEALS, First dose on Thu09/21/23 at 0730, Correction Scale - MEDIUM INSULIN RESISTANCE DOSING Do Not give Correction Insulin if Pre-Meal BG less than 140. For Pre-Meal BG 140 - 189 give 1 unit. For Pre-Meal BG 190 - 239 give 2 units. For Pre-Meal BG 240 - 289 give 3 units. For Pre-Meal BG 290 - 339 give 4 units. For Pre-Meal BG 340- 389 give 5 units. For Pre-Meal BG 390-439 give 6 units For Pre-Meal BG greater than or equal to 440 give 7 units. To be given with prandial insulin, and based on pre-meal blood glucose. Administering insulin within 5 minutes of the start of the meal is ideal. Administer insulin no more than 30 minutes after the start of the meal, unless directed otherwise by provider. Notify provider if glucose greater than or equal to 350 mg/dL after administration of correction dose. 0844 (Not Given - Provider: Gabby Chatterjee RN - Reason: Order parameters not met - Comment: bg 124)1348 (Not Given - Provider: Ros Hoffman RN - Reason: Other - Comment: pt did not call staff for blood sugar checked, but check it with her own monitor and blood sugar was 138. no Insulin given.)1812 (Not Given - Provider: Isamar Quinn RN - Reason: Order parameters not met - Comment: [id number]) 0746 ($Given - Provider: Ina Swan, JD - Comment: 140)1200 (Due)1808 (Not Given - Provider: Ivis Oconnell RN - Reason: Other - Comment: BG 137) 0730 (Due)1200 (Due)1700 (Due) insulin aspart (NovoLOG) injection (RAPID ACTING) 1-5 Units, Subcutaneous, AT BEDTIME, First dose on Thu09/21/23 at 0500, MEDIUM INSULIN RESISTANCE DOSING Do Not give Bedtime Correction Insulin if BG less than 200. For BG 200 - 249 give 1 units. For BG 250 - 299 give 2 units. For BG 300 - 349 give 3 units. For BG 350 -399 give 4 units. For BG greater than or equal to 400 give 5 units. Notify provider if glucose greater than or equal to 350 mg/dL after administration of correction dose. 0513 (Not Given - Provider: Alisa Lubin RN - Reason: Order parameters not met - Comment: still on insulin gtt and not eating)2308 (Not Given - Provider: Gardenia Martinez RN - Reason: Order parameters not met - Comment: BG= 161) 231 (Not Given - Provider: Luana Hui RN - Reason: Order parameters not met - Comment: blood sugar 160) 220 (Due) magnesium sulfate 4 g in 100 mL sterile water intermittent infusion 4 g, Intravenous, Administer over 30 Minutes, at 200 mL/hr, ONCE, On Thu09/20/23 at 0030, For 1 dose, FOR SEIZURE PROPHYLAXIS. Infuse over 30 minutes per infusion control pump. Must run concurrently with maintenance IV fluid. Insert at closest possible Y-site in main-line IV. Stay with patient for 60 minutes (during loading dose and 30 minutes following). NIFEdipine ER OSMOTIC (PROCARDIA XL) 24 hr tablet 60 mg 60 mg, Oral, DAILY, First dose on Thu09/20/23 at 1800, DO NOT CRUSH. 0814 ($Given - Provider: Gabby Chatterjee RN) 0814 ($Given - Provider: Ina Swan RN) 0800 (Due) penicillin G potassium 3 Million Units in D5W 50 mL intermittent infusion (CANCELED)(Linked Group 1) Routine, 3 Million Units, Intravenous, EVERY 4 HOURS, First dose on Thu09/20/23 at 1300, To be given until delivery., Indications: Group B Strep, Intrapartum 0131 ($New Bag - Provider: Alisa Lubin, JD) sodium chloride (PF) 0.9% PF flush 3 mL 3 mL, Intracatheter, EVERY 8 HOURS, First dose on Thu09/20/23 at 0030, to lock peripheral IV dormant line 0010 (Not Given - Provider: Alisa Lubin RN - Reason: IV Infusing)0852 (Not Given - Provider: Gabby Chatterjee RN - Reason: IV Infusing)1609 ($Given - Provider: Isamar Quinn RN) 0202 (Not Given - Provider: Gardenia Martinez, JD - Reason: IV Infusing)0814 ($Given - Provider: Ina Swan RN)1809 ($Given - Provider: Ivis Oconnell, JD)2346 ($Given - Provider: Sandhya Jimenez, RN) 0830 (Due)1630 (Due) Continuous Medication Order 09/21/2023 09/22/2023 09/23/2023 lactated ringers infusion at 10-125 mL/hr, Intravenous, CONTINUOUS, Titrate lactated ringers rate to obtain total IV intake of no more than 125 mL/hour, Starting on 09/20/23 at 0030, Until Discontinued 1602 ($New Bag - Provider: Isamar Quinn RN) 0332 (Stopped - Provider: Gardenia Martinez RN) magnesium sulfate infusion () 2 g/hr (50 mL/hr), Intravenous, CONTINUOUS, Starting on 09/20/23 at 0030, For 2 days 4 hours, STOP infusion and then notify provider IF signs of magnesium toxicity appear. Must run concurrently with maintenance IV fluid. Insert at closest possible Y-site in main-line IV. Total IV fluid intake should not exceed 125 mL/hr. 0730 (Rate/Dose Verify - Provider: Gabby Chatterjee RN)0935 ($New Bag - Provider: Gabby Chatterjee RN)1525 (Rate/Dose Verify - Provider: Isamar Quinn RN)1931 (Rate/Dose Verify - Provider: Gardenia Martinez, JD) 0332 (Stopped - Provider: Gardenia Martinez, JD) oxytocin (PITOCIN) 30 units in 500 mL 0.9% NaCl infusion (CANCELED) 1-26 dominick-units/min (1-26 mL/hr), Intravenous, CONTINUOUS, Starting on 09/20/23 at 0900, Start infusion at 2 dominick-units/min. Increase by 2 dominick-units/min every 30 minutes until contractions are 2-3 minutes apart, lasting 45 to 60 seconds in duration to achieve labor progress. Max rate is 26 milliunits/min. Do NOT go higher without a provider order. If oxytocin (PITOCIN) infusion is discontinued and off for less than 30 minutes, restart infusion at half of previous oxytocin (PITOCIN) rate. If oxytocin (PITOCIN) infusion has been discontinued equal to or greater than 30 minutes, begin at initial dose. IF another cervical ripening medication is ordered wait 60 minutes after oxytocin (PITOCIN) infusion is stopped before administering cervical ripening medication., Intrapartum 0102 (Rate/Dose Change - Provider: Alisa Lubin, JD)0324 (Stopped - Provider: Alisa Lubin RN) PRN Medication Order 09/21/2023 09/22/2023 09/23/2023 acetaminophen (TYLENOL) tablet 650 mg 650 mg, Oral, EVERY 4 HOURS PRN, mild pain, fever, greater than or equal to 38 C /100.4 F (oral) or 38.5 C/ 101.4 F (core)., Starting on Thu09/21/23 at 0433, Maximum acetaminophen dose from all sources = 75 mg/kg/day not to exceed 4 grams/day., 1601 ($Given - Provider: Isamar Quinn RN)2126 ($Given - Provider: Gardenia Martinez RN) 0228 ($Given - Provider: Gardenia Martinez RN)0650 ($Given - Provider: Gardenia Martinez RN)1034 ($Given - Provider: Ina Swan RN)1542 ($Given - Provider: Ivis Oconnell RN)1940 ($Given - Provider: Luana Hui RN)2345 ($Given - Provider: Sandhya Jimenez RN) benzocaine-menthol (DERMOPLAST) topical spray Topical, 4 TIMES DAILY PRN, perineal pain, Starting on Thu09/21/23 at 0433, bisacodyl (DULCOLAX) suppository 10 mg 10 mg, Rectal, DAILY PRN, constipation, Starting on Thu09/21/23 at 0434, Do not administer if patient has 3rd or 4th degree lacerations. Hold for loose stools., 1808 (Canceled Entry - Provider: Isamar Quinn RN) calcium gluconate 10 % injection 1 g 1 g, Intravenous, ONCE PRN, magnesium sulfate toxicity , Administer over 3-5 Minutes, Starting on 09/20/23 at 0002, For 1 dose, IF signs of magnesium toxicity appear, STOP magnesium infusion, administer calcium gluconate, and notify provider. Do not infuse in the same IV line as phosphate-containing solutions carboprost (HEMABATE) injection 250 mcg (CANCELED)(Linked Group 2) 250 mcg, Intramuscular, EVERY 15 MIN PRN, other, ONLY for uterine atony with significant bleeding POST-DELIVERY, Starting on 09/19/23 at 2356, Notify provider IF uterine atony and clarify with provider medication preference. Administer only if directed by provider. Give with caution in patients with asthma, active pulmonary, hepatic, renal or cardiovascular disease., Intrapartum 0340 ($Given - Provider: Alisa Lubin RN) carboprost (HEMABATE) injection 250 mcg(Linked Group 3) 250 mcg, Intramuscular, EVERY 15 MIN PRN, other, ONLY for uterine atony with significant bleeding POST-DELIVERY, Starting on 09/21/23 at 0433, Notify provider IF uterine atony and clarify with provider medication preference. Administer only if directed by provider. Give with caution in patients with asthma, active pulmonary, hepatic, renal or cardiovascular disease., dextrose 50 % injection 25-50 mL(Linked Group 4) 25-50 mL, Intravenous, EVERY 15 MIN PRN, low blood sugar, Administer over 1-5 Minutes, Starting on 09/21/23 at 0451, Use if have IV access, BG less than 70 mg/dL and meet dose criteria below: Dose if conscious and alert (or disorientated) and NPO = 25 mL Dose if unconscious / not alert = 50 mL Give first dose for initial blood glucose less than 70 mg/dL. If blood glucose at 15 minute recheck is less than or equal to 80 mg/dL continue to administer carbohydrate treatment every 15 minutes, as needed, based on blood glucose and assessment parameters until blood glucose level is above 80 mg/dL x 2 consecutive 15 minute checks. diphenhydrAMINE (BENADRYL) capsule 25 mg(Linked Group 5) 25 mg, Oral, EVERY 6 HOURS PRN, itching, Starting on 09/20/23 at 0038 diphenhydrAMINE (BENADRYL) injection 25 mg(Linked Group 5) 25 mg, Intravenous, EVERY 6 HOURS PRN, itching, Starting on Thu09/20/23 at 0038 glucagon injection 1 mg(Linked Group 4) 1 mg, Subcutaneous, EVERY 15 MIN PRN, low blood sugar, May repeat x 1 only, Starting on Thu09/21/23 at 0451, May give SQ or IM. ONLY use glucagon IF patient has NO IV access AND is UNABLE to swallow AND blood glucose is LESS than or EQUAL to 50 mg/dL. glucose gel 15-30 g(Linked Group 4) 15-30 g, Oral, EVERY 15 MIN PRN, low blood sugar, Starting on Thu09/21/23 at 0451, Give first dose for initial blood glucose less than 70 mg/dL per the dosing instructions below. If blood glucose at 15 minute rechecks is still less than or equal to 80 mg/dL, continue to administer doses per blood glucose parameters every 15 minutes, as needed, until blood glucose level is at or above 80 mg/dL x 2 consecutive 15 minute checks. Dosing Instructions: ~If patient is conscious and able to swallow and NO enteral tube For initial BG 51-69mg/dL OR 15 minute recheck BG 51- 80 mg/dL - give 15 g For BG less than or equal to 50 mg/dL - give 30 g ~ If Enteral tube For initial BG 51-69mg/dL OR 15 minute recheck BG 51- 80 mg/dL - give apple juice 120 mL (4 oz or 15 g of CHO) via enteral tube For BG less than or equal to 50 mg/dL - Give apple juice 240 mL (8 oz or 30 g of CHO) via enteral tube ~Oral gel is preferable for conscious and able to swallow patient. ~IF gel unavailable or patient refuses may provide apple juice per Enteral tube dosing instructions. Document juice on I and O flowsheet. hydrALAZINE (APRESOLINE) injection 10 mg 10 mg, Intravenous, EVERY 20 MIN PRN, other, Acute Onset Severe Hypertension Medication Algorithm, Administer over 2 Minutes, Starting on Thu09/20/23 at 0002, ~ IF SBP GREATER than or EQUAL to 160 or DBP GREATER than or EQUAL to 110 at 10 minutes following 3rd dose of labetalol, give IV hydralazine 10 mg over 2 minutes AND NOTIFY PROVIDER ~ IF SBP GREATER than or EQUAL to 160 or DBP GREATER than or EQUAL to 110 at 20 minutes following 1st hydralazine dose, notify provider. ~ DO NOT give if history of mitral valvular rheumatic heart disease or coronary heart disease. hydrocortisone (Perianal) (ANUSOL-HC) 2.5 % cream Rectal, 3 TIMES DAILY PRN, hemorrhoids, Starting on Thu09/21/23 at 0433, Apply to hemorrhoids. Send only if nurse requests., ibuprofen (ADVIL/MOTRIN) tablet 800 mg(Linked Group 6) 800 mg, Oral, ONCE PRN, other, for mild to moderate pain, Starting on 09/20/23 at 0847, For 1 dose, Give 30-60 minutes post procedure x 1 dose. Do not give within 6 hours of ketorolac dose. Give with food. ibuprofen (ADVIL/MOTRIN) tablet 800 mg 800 mg, Oral, EVERY 6 HOURS PRN, other, cramping, Starting on Thu09/21/23 at 0433, Start 6 hours after ketorolac is completed (if ordered). Max dose: 3200 mg/day Give with food., 1820 ($Given - Provider: Isamar Quinn RN) 0228 ($Given - Provider: Gardenia Martinez RN)0814 ($Given - Provider: Ina Swan, JD)1425 ($Given - Provider: Ina Swan, JD)2036 ($Given - Provider: Luana Hui, JD) insulin regular (MYXREDLIN) 1 unit/mL infusion (CANCELED) Intravenous, CONTINUOUS PRN, other, Start infusion per administration instructions., Starting on Thu09/20/23 at 0849, Follow OB DIAB INSULIN Infusion in Labor algorithm. Initiate drip with Algorithm #1. For patients with type 1 diabetes initiate insulin and D10W per algorithm when blood glucose is > 70 mg/dL. For patients with type 2 or gestational diabetes initiate insulin when blood glucose is > 110 mg/dL for 2 consecutive 1-hour glucose checks. Maintain glucose level between 70 - 110 mg/dL. For patients with gestational diabetes (GDM), stop insulin infusion and D10W following delivery of placenta. For patients with Type 2 diabetes who did not require insulin during , stop the insulin infusion following delivery of placenta. For patients with Type 1 and Type 2 diabetes on insulin, initiate subcutaneous insulin per orders then stop insulin infusion and D10W 2 hours after first subcutaneous insulin dose. For patients transitioning to ambulatory insulin infusion pump use IP DIAB CONTINUOUS SUBCUTANEOUS INSULIN INFUSION VIA AMBULATORY PUMP order set, stop insulin drip 1 hour after resumption of ambulatory pump., Intrapartum 0032 (Rate/Dose Change - Provider: Alisa Lubin RN)0130 (Rate/Dose Change - Provider: Alisa Lubin RN)0231 (Rate/Dose Change - Provider: Alisa Lubin RN)0430 ($New Bag - Provider: Alisa Lubin RN)0536 (Rate/Dose Change - Provider: Alisa Lubin RN)0636 (Rate/Dose Change - Provider: Alisa Lubin RN)0738 (Rate/Dose Change - Provider: Gabby Chatterjee RN - Comment: algorithm 4)0840 (Rate/Dose Change - Provider: Gabby Chatterjee RN - Comment: algorithm 4. Will d/c per protocol)0931 (Rate/Dose Change - Provider: Gabby Chatterjee RN - Comment: algorithm 4 - bg = 125) ketorolac (TORADOL) injection 30 mg(Linked Group 6) 30 mg, Intravenous, ONCE PRN, moderate pain, Starting on 09/20/23 at 0847, For 1 dose, Give immediately x 1 dose. Any patient with renal function concerns should have a serum creatinine drawn and creatinine clearance calculated. If creatinine clearance is 30-50 ml/min give 15 mg, if less than 30 ml/min do not administer ketorolac. Can cause pain on injection. If ordered intravenously (IV) : administer through a running maintenance fluid over 1 minute followed by a flush. If patient complains of pain on injection, may dilute 15-30 mg in 5 mL and push over 1 to 2 minutes. ketorolac (TORADOL) injection 30 mg(Linked Group 6) 30 mg, Intramuscular, ONCE PRN, moderate pain, Starting on 09/20/23 at 0847, For 1 dose, Give 30-60 minutes post procedure x 1 dose. Any patient with renal function concerns should have a serum creatinine drawn and creatinine clearance calculated. If creatinine clearance is 30-50 ml/min give 15 mg, if less than 30 ml/min do not administer ketorolac. Can cause pain on injection. If ordered intravenously (IV) : administer through a running maintenance fluid over 1 minute followed by a flush. If patient complains of pain on injection, may dilute 15-30 mg in 5 mL and push over 1 to 2 minutes. labetalol (NORMODYNE/TRANDATE) injection 20-80 mg 20-80 mg, Intravenous, EVERY 10 MIN PRN, other, Acute Onset Severe Hypertension Medication Algorithm, Administer over 2 Minutes, Starting on Thu09/20/23 at 0002, ~ Begin administration if criteria for acute onset hypertension met. ~ Administer IV labetalol 20 mg over 2 minutes for first dose. ~ IF SBP GREATER than or EQUAL to 160 or DBP GREATER than or EQUAL to 110 at 10 minutes following 1st dose of labetalol, give 2nd dose of IV labetalol 40 mg over 2 minutes ~ IF SBP GREATER than or EQUAL to 160 or DBP GREATER than or EQUAL to 110 at 10 minutes following 2nd dose of labetalol, give 3rd dose of IV labetalol 80 mg over 2 minutes ~ IF SBP GREATER than or EQUAL to 160 or DBP GREATER than or EQUAL to 110 at 10 minutes following 3rd dose of labetalol, progress to IV hydralazine 10 mg and notify provider. ~ DO NOT give if history of asthma or congestive heart failure. HOLD Labetalol IF maternal HR LESS than 60 AND notify provider for further orders ~ MAX recommended daily dose: 300 mg/24hours. lactated ringers BOLUS 500 mL (COMPLETED)(Linked Group 7) Intravenous, 500 mL, ONCE PRN, IF patient to have epidural or intrathecal narcotics AND patient is pre-eclamptic, Starting on Thu09/20/23 at 0107, For 1 dose, IV bolus must be initiated 15-30 min prior to epidural or intrathecal IF pre-eclamptic, then IV fluids per labor orders. Nurse may discontinue this order if duplicate., Intrapartum 0403 ($New Bag - Provider: Alisa Lubin RN) lanolin cream Topical, EVERY 1 HOUR PRN, other, sore nipples, Starting on 09/21/23 at 0433, Apply to sore nipples., lidocaine (LMX4) cream Topical, EVERY 1 HOUR PRN, pain, with VAD insertion, Starting on Thu09/20/23 at 0002, Apply at least 30 minutes prior to VAD insertion in divided doses as needed for size of site for insertion. MAX Dose: 2.5 g (?? of 5 g tube) Do NOT give if patient has a history of allergy to any local anesthetic or any sammy product. Do NOT use both lidocaine intradermal/subcutaneous injection and the lidocaine cream on the same site. lidocaine 1 % 0.1-1 mL 0.1-1 mL, Other, EVERY 1 HOUR PRN, mild pain with VAD insertion, Starting on 09/20/23 at 0002, MAX dose 1 mL subcutaneous OR intradermal along the side of the vein in divided doses as needed for VAD insertion. Do NOT give if patient has a history of allergy to any local anesthetic or any sammy product. Do NOT use both lidocaine intradermal/subcutaneous injection and the lidocaine cream on the same site. lidocaine 1 % 0.1-20 mL 0.1-20 mL, Subcutaneous, ONCE PRN, episiotomy/laceration repair, Starting on 09/20/23 at 0847, For 1 dose, Available for provider administration after delivery. loperamide (IMODIUM) capsule 2 mg (CANCELED) 2 mg, Oral, EVERY 2 HOURS PRN, other, after each loose stool, Starting on 09/19/23 at 2356, May give only after delivery. For diarrhea occurring after carboprost (HEMABATE) administration ONLY. Maximum 16 mg/day. Do NOT give stool softeners or laxatives until diarrhea is resolved., Intrapartum 0406 ($Given - Provider: Alisa Lubin RN) loperamide (IMODIUM) capsule 2 mg 2 mg, Oral, EVERY 2 HOURS PRN, other, after each loose stool, Starting on 09/21/23 at 0433, May give only after delivery. For diarrhea occurring after carboprost (HEMABATE) administration ONLY. Maximum 16 mg/day. Do NOT give stool softeners or laxatives until diarrhea is resolved., loperamide (IMODIUM) capsule 4 mg(Linked Group 3) 4 mg, Oral, ONCE PRN, other, Give with first dose of carboprost (HEMABATE), Starting on 09/21/23 at 0433, For 1 dose, May give only after delivery., magnesium sulfate 2 g in 50 mL sterile water intermittent infusion 2 g, Intravenous, Administer over 5 Minutes, at 600 mL/hr, ONCE PRN, seizures, Loading dose for ACTIVE MANAGEMENT OF SEIZURES, give If on magnesium sulfate infusion., Starting on Thu09/20/23 at 0002, For 1 dose, Must run concurrently with maintenance IV fluid. Insert at closest possible Y-site in main-line IV. magnesium sulfate 4 g in 100 mL sterile water intermittent infusion 4 g, Intravenous, Administer over 20 Minutes, at 300 mL/hr, ONCE PRN, seizures, Loading dose for ACTIVE MANAGEMENT OF SEIZURES, give If NOT on magnesium sulfate infusion., Starting on Thu09/20/23 at 0002, For 1 dose, Must run concurrently with maintenance IV fluid. Insert at closest possible Y-site in main-line IV. methylergonovine (METHERGINE) injection 200 mcg 200 mcg, Intramuscular, EVERY 2 HOURS PRN, ONLY for uterine atony with significant bleeding POST-DELIVERY, Starting on Thu09/21/23 at 0433, Notify provider IF uterine atony and clarify with provider medication preference. Administer only if directed by provider. Contraindicated if Blood Pressure greater than 140/90, preeclampsia, or hypertension., midazolam (VERSED) injection 2 mg 2 mg, Intravenous, EVERY 5 MIN PRN, seizures, If unresponsive to magnesium dosing., Starting on Thu09/20/23 at 0002, For 5 doses, Give as directed by provider. This drug may cause significant respiratory depression. Monitor respiratory status and vital signs carefully for 1 hour after each dose. misoprostol (CYTOTEC) tablet 400 mcg (CANCELED)(Linked Group 8) 400 mcg, Oral, GIVE ONCE PRN AND REPEAT ACCORDING TO INSTRUCTIONS, post- hemorrhage, Starting on Thu09/19/23 at 2356, Administer only if directed by provider. Max administrations: 4 doses, Intrapartum 0330 ($Given - Provider: Alisa Lubin RN) misoprostol (CYTOTEC) tablet 400 mcg(Linked Group 9) 400 mcg, Oral, GIVE ONCE PRN AND REPEAT ACCORDING TO INSTRUCTIONS, post- hemorrhage, Starting on Thu09/21/23 at 0433, Administer only if directed by provider. Max administrations: 4 doses, misoprostol (CYTOTEC) tablet 800 mcg(Linked Group 9) 800 mcg, Rectal, GIVE ONCE PRN AND REPEAT ACCORDING TO INSTRUCTIONS, post- hemorrhage, Starting on Thu09/21/23 at 0433, Give rectally if unable to take oral without complications. Administer only if directed by provider. Max administrations: 4 doses., nalbuphine (NUBAIN) injection 2.5-5 mg 2.5-5 mg, Intravenous, EVERY 6 HOURS PRN, itching, Starting on Thu09/20/23 at 0106, Give 2.5 mg initially. If pruritus persists after 30 minutes, may give additional 2.5 mg. If effective, then repeat effective dose Q6H PRN pruritus. naloxone (NARCAN) injection 0.2 mg(Linked Group 10) 0.2 mg, Intravenous, EVERY 2 MIN PRN, opioid reversal, Starting on Thu09/21/23 at 0444, Administer intravenous route when available and notify provider when administered. For unintended sedation or respiratory depression if all of the below criteria are met: ~ respiratory rate LESS than or EQUAL to 8. ~SaO2 less than 92% and or/end-tidal CO2 is greater than 50. ~ the patient is receiving an opioid, has unintended sedations assessed as RASS (-3), and is currently not on mechanical ventilation. RASS scale moderate (-3) is movement or eye opening to voice but no eye contact. Patient Monitoring Once the patient has demonstrated a response to the naloxone, continue to monitor respiratory rate, depth, oxygen saturation and end-tidal CO2 (if available) every 15 minutes x 2, then every 30 minutes x 2, then every 1 hour x 1 after each naloxone dose. Consider transfer to ICU if patient respiratory parameters have not improved after 4 naloxone doses. naloxone (NARCAN) injection 0.2 mg(Linked Group 10) 0.2 mg, Intramuscular, EVERY 2 MIN PRN, opioid reversal, Starting on Thu09/21/23 at 0444, Administer intramuscular if an intravenous route is not available and notify provider when administered. For unintended sedation or respiratory depression if all of the below criteria are met: ~ respiratory rate LESS than or EQUAL to 8. ~SaO2 less than 92% and or/end-tidal CO2 is greater than 50. ~ the patient is receiving an opioid, has unintended sedations assessed as RASS (-3), and is currently not on mechanical ventilation. RASS scale moderate (-3) is movement or eye opening to voice but no eye contact. Patient Monitoring Once the patient has demonstrated a response to the naloxone, continue to monitor respiratory rate, depth, oxygen saturation and end-tidal CO2 (if available) every 15 minutes x 2, then every 30 minutes x 2, then every 1 hour x 1 after each naloxone dose. Consider transfer to ICU if patient respiratory parameters have not improved after 4 naloxone doses. naloxone (NARCAN) injection 0.4 mg(Linked Group 10) 0.4 mg, Intravenous, EVERY 2 MIN PRN, opioid reversal, Starting on Thu09/21/23 at 0444, Administer intravenous route when available and notify provider when administered. For unintended sedation or respiratory depression if all of the below criteria are met: ~ respiratory rate LESS than or EQUAL to 8. ~ SaO2 less than 92% and or/end-tidal CO2 is greater than 50. ~ the patient is receiving an opioid, has unintended sedation assessed as RASS (-4) or (-5) and patient is currently not on mechanical ventilation. RASS scale (-4) is deep sedation with no response to voice but movement or eye opening to physical stimulation. RASS scale (-5) is unarousable. Patient Monitoring Once the patient has demonstrated a response to the naloxone, continue to monitor respiratory rate, depth, oxygen saturation and end-tidal CO2 (if available) every 15 minutes x 2, then every 30 minutes x 2, then every 1 hour x 1 after each naloxone dose. Consider transfer to ICU if patient respiratory parameters have not improved after 4 naloxone doses. naloxone (NARCAN) injection 0.4 mg(Linked Group 10) 0.4 mg, Intramuscular, EVERY 2 MIN PRN, opioid reversal, Starting on Thu09/21/23 at 0444, Administer intramuscular if an intravenous route is not available and notify provider when administered. For unintended sedation or respiratory depression if all of the below criteria are met: ~ respiratory rate LESS than or EQUAL to 8. ~ SaO2 less than 92% and or/end-tidal CO2 is greater than 50. ~ the patient is receiving an opioid, has unintended sedation assessed as RASS (-4) or (-5) and patient is currently not on mechanical ventilation. RASS scale (-4) is deep sedation with no response to voice but movement or eye opening to physical stimulation. RASS scale (-5) is unarousable. Patient Monitoring Once the patient has demonstrated a response to the naloxone, continue to monitor respiratory rate, depth, oxygen saturation and end-tidal CO2 (if available) every 15 minutes x 2, then every 30 minutes x 2, then every 1 hour x 1 after each naloxone dose. Consider transfer to ICU if patient respiratory parameters have not improved after 4 naloxone doses. No MMR Needed - Assessment: Patient does not need MMR vaccine CONTINUOUS PRN, Starting on Thu09/21/23 at 0435, Until Discontinued, Assessment: Patient does not need MMR immunization, No Tdap Needed - Assessment: Patient does not need Tdap vaccine CONTINUOUS PRN, Starting on Thu09/21/23 at 0435, Until Discontinued, Assessment: Patient does not need Tdap immunization, oxyCODONE (ROXICODONE) tablet 5 mg (COMPLETED) 5 mg, Oral, ONCE PRN, moderate pain, severe pain, Starting on Thu09/21/23 at 0438, For 1 dose 0503 ($Given - Provider: Alisa Lubin RN) oxytocin (PITOCIN) 30 units in 500 mL 0.9% NaCl infusion 100-340 mL/hr, Intravenous, CONTINUOUS PRN, After delivery to prevent uterine atony, Starting on Thu09/20/23 at 0847, Give after delivery to prevent uterine atony per provider direction. Administer 340 mL/hr over 30 minutes for a total of 170 mL, then decrease to 100 mL/hr until infusion complete (about 3.5 hours) or per provider direction. Start new bag at delivery. Discontinue or saline lock peripheral IV per nurse discretion. 0324 (Rate/Dose Change - Provider: Alisa Lubin RN)0423 ($New Bag - Provider: Alisa Lubin RN)0940 (Stopped - Provider: Gabby Chatterjee RN) oxytocin (PITOCIN) 30 units in 500 mL 0.9% NaCl infusion 340 mL/hr, Intravenous, CONTINUOUS PRN, for hemorrhage (PPH) UNTIL bleeding subsided., Starting on Thu09/21/23 at 0433, When bleeding subsides decrease rate to 100 mL/hr. Notify provider immediately when infusion begun. Oxytocin is first line medication for PPH., oxytocin (PITOCIN) injection 10 Units 10 Units, Intramuscular, ONCE PRN, Give after delivery to prevent uterine atony., Starting on Thu09/20/23 at 0847, For 1 dose, Give after delivery to prevent uterine atony if no IV access is available per provider direction. oxytocin (PITOCIN) injection 10 Units 10 Units, Intramuscular, ONCE PRN, for hemorrhage (PPH), IF no IV access is available., Starting on Thu09/21/23 at 0433, For 1 dose, Notify provider immediately when injection given. Oxytocin is first line medication for PPH., sodium chloride (PF) 0.9% PF flush 3 mL 3 mL, Intracatheter, EVERY 1 MIN PRN, line flush, other, to ensure patency or to lock dormant line, Starting on Thu09/20/23 at 0002 1045 ($Given - Provider: Gabby Chatterjee RN) sodium chloride 0.9% BOLUS 1-250 mL Intravenous, 1-250 mL, EVERY 1 HOUR PRN, To prime infusion tubing AND flush blood through tubing POST blood component administration., Starting on Tu09/22/23 at 1233, IF blood component ordered, nurse to administer rate and volume of fluid pre-blood component administration to PRIME tubing AND to FLUSH blood through tubing post blood component administration UNTIL tubing is clear of visible blood. Use MINIMUM volume necessary for pre and post blood component administration. IF duplicate order nurse to discontinue the duplicate order. , Blood components must be fully transfused within four hours of spiking the component due to the risk of bacterial growth. Post-transfusion flushing of the line should occur immediately if the four hour limit has been reached. tranexamic acid 1 g in 100 mL NS IV bag (premix) (CANCELED) 1 g, Intravenous, Administer over 10 Minutes, EVERY 30 MIN PRN, Post- hemorrhage (PPH), Starting on 09/19/23 at 2356, For 2 doses, Provider consultation REQUIRED and MUST be administered as soon as the ONSET of bleeding AND within 3 hours of regardless of cause of the PPH (atony OR laceration). IF bleeding continues, a 2nd dose may be administered after 30 minutes. IF concern for DIC (Disseminated Intravascular Coagulation), obtain coagulation studies PRIOR to administration. Contraindications include: history of PE (Pulmonary Emboli), DVT (Deep Vein Thrombosis) and current Subarachnoid hemorrhage and active DIC. Administer only if directed by provider., Intrapartum 0337 ($Given - Provider: Alisa Lubin RN) tranexamic acid 1 g in 100 mL NS IV bag (premix) 1 g, Intravenous, Administer over 10 Minutes, EVERY 30 MIN PRN, Post- hemorrhage (PPH), Starting on Thu09/21/23 at 0433, For 2 doses, Provider consultation REQUIRED and MUST be administered as soon as the ONSET of bleeding AND within 3 hours of regardless of cause of the PPH (atony OR laceration). IF bleeding continues, a 2nd dose may be administered after 30 minutes. IF concern for DIC (Disseminated Intravascular Coagulation), obtain coagulation studies PRIOR to administration. Contraindications include: history of PE (Pulmonary Emboli), DVT (Deep Vein Thrombosis) and current Subarachnoid hemorrhage and active DIC. Administer only if directed by provider., No Frequency Medication Order 09/21/2023 09/22/2023 09/23/2023 sodium chloride 0.9 % infusion Ina Swan: cabinet override, 1 dose, Starting on Thu09/22/23 at 1413, Until Thu09/23/23 at 0229 1712 (Canceled Entry - Provider: Ivis Oconnell RN) Linked Groups Order Group 1: penicillin G potassium 5 million units vial to attach to NS 100 mL bag (COMPLETED) STAT, 5 Million Units, Intravenous, ONCE, On 09/20/23 at 0900, For 1 dose, Loading Dose. Active upon active labor status., Indications: Group B Strep, Intrapartum Followed by penicillin G potassium 3 Million Units in D5W 50 mL intermittent infusion (CANCELED)Jump to med Routine, 3 Million Units, Intravenous, EVERY 4 HOURS, First dose on 09/20/23 at 1300, To be given until delivery., Indications: Group B Strep, Intrapartum Group 2: carboprost (HEMABATE) injection 250 mcg (CANCELED)Jump to med 250 mcg, Intramuscular, EVERY 15 MIN PRN, other, ONLY for uterine atony with significant bleeding POST-DELIVERY, Starting on 09/19/23 at 2356, Notify provider IF uterine atony and clarify with provider medication preference. Administer only if directed by provider. Give with caution in patients with asthma, active pulmonary, hepatic, renal or cardiovascular disease., Intrapartum And loperamide (IMODIUM) capsule 4 mg (CANCELED) 4 mg, Oral, ONCE PRN, other, Give with first dose of carboprost (HEMABATE), Starting on 09/19/23 at 2356, For 1 dose, May give only after delivery., Intrapartum Group 3: carboprost (HEMABATE) injection 250 mcgJump to med 250 mcg, Intramuscular, EVERY 15 MIN PRN, other, ONLY for uterine atony with significant bleeding POST-DELIVERY, Starting on Thu09/21/23 at 0433, Notify provider IF uterine atony and clarify with provider medication preference. Administer only if directed by provider. Give with caution in patients with asthma, active pulmonary, hepatic, renal or cardiovascular disease., And loperamide (IMODIUM) capsule 4 mgJump to med 4 mg, Oral, ONCE PRN, other, Give with first dose of carboprost (HEMABATE), Starting on Thu09/21/23 at 0433, For 1 dose, May give only after delivery., Group 4: glucose gel 15-30 gJump to med 15-30 g, Oral, EVERY 15 MIN PRN, low blood sugar, Starting on Thu09/21/23 at 0451, Give first dose for initial blood glucose less than 70 mg/dL per the dosing instructions below. If blood glucose at 15 minute rechecks is still less than or equal to 80 mg/dL, continue to administer doses per blood glucose parameters every 15 minutes, as needed, until blood glucose level is at or above 80 mg/dL x 2 consecutive 15 minute checks. Dosing Instructions: ~If patient is conscious and able to swallow and NO enteral tube For initial BG 51-69mg/dL OR 15 minute recheck BG 51- 80 mg/dL - give 15 g For BG less than or equal to 50 mg/dL - give 30 g ~ If Enteral tube For initial BG 51-69mg/dL OR 15 minute recheck BG 51- 80 mg/dL - give apple juice 120 mL (4 oz or 15 g of CHO) via enteral tube For BG less than or equal to 50 mg/dL - Give apple juice 240 mL (8 oz or 30 g of CHO) via enteral tube ~Oral gel is preferable for conscious and able to swallow patient. ~IF gel unavailable or patient refuses may provide apple juice per Enteral tube dosing instructions. Document juice on I and O flowsheet. Or dextrose 50 % injection 25-50 mLJump to med 25-50 mL, Intravenous, EVERY 15 MIN PRN, low blood sugar, Administer over 1-5 Minutes, Starting on Thu09/21/23 at 0451, Use if have IV access, BG less than 70 mg/dL and meet dose criteria below: Dose if conscious and alert (or disorientated) and NPO = 25 mL Dose if unconscious / not alert = 50 mL Give first dose for initial blood glucose less than 70 mg/dL. If blood glucose at 15 minute recheck is less than or equal to 80 mg/dL continue to administer carbohydrate treatment every 15 minutes, as needed, based on blood glucose and assessment parameters until blood glucose level is above 80 mg/dL x 2 consecutive 15 minute checks. Or glucagon injection 1 mgJump to med 1 mg, Subcutaneous, EVERY 15 MIN PRN, low blood sugar, May repeat x 1 only, Starting on 09/21/23 at 0451, May give SQ or IM. ONLY use glucagon IF patient has NO IV access AND is UNABLE to swallow AND blood glucose is LESS than or EQUAL to 50 mg/dL. Group 5: diphenhydrAMINE (BENADRYL) capsule 25 mgJump to med 25 mg, Oral, EVERY 6 HOURS PRN, itching, Starting on 09/20/23 at 0038 Or diphenhydrAMINE (BENADRYL) injection 25 mgJump to med 25 mg, Intravenous, EVERY 6 HOURS PRN, itching, Starting on 09/20/23 at 0038 Group 6: ketorolac (TORADOL) injection 30 mgJump to med 30 mg, Intravenous, ONCE PRN, moderate pain, Starting on 09/20/23 at 0847, For 1 dose, Give immediately x 1 dose. Any patient with renal function concerns should have a serum creatinine drawn and creatinine clearance calculated. If creatinine clearance is 30-50 ml/min give 15 mg, if less than 30 ml/min do not administer ketorolac. Can cause pain on injection. If ordered intravenously (IV) : administer through a running maintenance fluid over 1 minute followed by a flush. If patient complains of pain on injection, may dilute 15-30 mg in 5 mL and push over 1 to 2 minutes. Or ketorolac (TORADOL) injection 30 mgJump to med 30 mg, Intramuscular, ONCE PRN, moderate pain, Starting on 09/20/23 at 0847, For 1 dose, Give 30-60 minutes post procedure x 1 dose. Any patient with renal function concerns should have a serum creatinine drawn and creatinine clearance calculated. If creatinine clearance is 30-50 ml/min give 15 mg, if less than 30 ml/min do not administer ketorolac. Can cause pain on injection. If ordered intravenously (IV) : administer through a running maintenance fluid over 1 minute followed by a flush. If patient complains of pain on injection, may dilute 15-30 mg in 5 mL and push over 1 to 2 minutes. Or ibuprofen (ADVIL/MOTRIN) tablet 800 mgJump to med 800 mg, Oral, ONCE PRN, other, for mild to moderate pain, Starting on 09/20/23 at 0847, For 1 dose, Give 30-60 minutes post procedure x 1 dose. Do not give within 6 hours of ketorolac dose. Give with food. Group 7: lactated ringers BOLUS 1,000 mL (COMPLETED) Intravenous, 1,000 mL, ONCE PRN, IF patient to have epidural or intrathecal narcotics and NOT pre-eclamptic, Starting on 09/20/23 at 0107, For 1 dose, IV bolus must be initiated 15-30 min prior to epidural or intrathecal, then IV fluids per labor orders. Nurse may discontinue this order if duplicate., Intrapartum Or lactated ringers BOLUS 500 mL (COMPLETED)Jump to med Intravenous, 500 mL, ONCE PRN, IF patient to have epidural or intrathecal narcotics AND patient is pre-eclamptic, Starting on 09/20/23 at 0107, For 1 dose, IV bolus must be initiated 15-30 min prior to epidural or intrathecal IF pre-eclamptic, then IV fluids per labor orders. Nurse may discontinue this order if duplicate., Intrapartum Group 8: misoprostol (CYTOTEC) tablet 400 mcg (CANCELED)Jump to med 400 mcg, Oral, GIVE ONCE PRN AND REPEAT ACCORDING TO INSTRUCTIONS, post- hemorrhage, Starting on 09/19/23 at 2356, Administer only if directed by provider. Max administrations: 4 doses, Intrapartum Or misoprostol (CYTOTEC) tablet 800 mcg (CANCELED) 800 mcg, Rectal, GIVE ONCE PRN AND REPEAT ACCORDING TO INSTRUCTIONS, post- hemorrhage, Starting on 09/19/23 at 2356, Give rectally if unable to take oral without complications. Administer only if directed by provider. Max administrations: 4 doses., Intrapartum Group 9: misoprostol (CYTOTEC) tablet 400 mcgJump to med 400 mcg, Oral, GIVE ONCE PRN AND REPEAT ACCORDING TO INSTRUCTIONS, post- hemorrhage, Starting on Thu09/21/23 at 0433, Administer only if directed by provider. Max administrations: 4 doses, Or misoprostol (CYTOTEC) tablet 800 mcgJump to med 800 mcg, Rectal, GIVE ONCE PRN AND REPEAT ACCORDING TO INSTRUCTIONS, post- hemorrhage, Starting on Thu09/21/23 at 0433, Give rectally if unable to take oral without complications. Administer only if directed by provider. Max administrations: 4 doses., Group 10: naloxone (NARCAN) injection 0.2 mgJump to med 0.2 mg, Intravenous, EVERY 2 MIN PRN, opioid reversal, Starting on Thu09/21/23 at 0444, Administer intravenous route when available and notify provider when administered. For unintended sedation or respiratory depression if all of the below criteria are met: ~ respiratory rate LESS than or EQUAL to 8. ~SaO2 less than 92% and or/end-tidal CO2 is greater than 50. ~ the patient is receiving an opioid, has unintended sedations assessed as RASS (-3), and is currently not on mechanical ventilation. RASS scale moderate (-3) is movement or eye opening to voice but no eye contact. Patient Monitoring Once the patient has demonstrated a response to the naloxone, continue to monitor respiratory rate, depth, oxygen saturation and end-tidal CO2 (if available) every 15 minutes x 2, then every 30 minutes x 2, then every 1 hour x 1 after each naloxone dose. Consider transfer to ICU if patient respiratory parameters have not improved after 4 naloxone doses. Or naloxone (NARCAN) injection 0.4 mgJump to med 0.4 mg, Intravenous, EVERY 2 MIN PRN, opioid reversal, Starting on Thu09/21/23 at 0444, Administer intravenous route when available and notify provider when administered. For unintended sedation or respiratory depression if all of the below criteria are met: ~ respiratory rate LESS than or EQUAL to 8. ~ SaO2 less than 92% and or/end-tidal CO2 is greater than 50. ~ the patient is receiving an opioid, has unintended sedation assessed as RASS (-4) or (-5) and patient is currently not on mechanical ventilation. RASS scale (-4) is deep sedation with no response to voice but movement or eye opening to physical stimulation. RASS scale (-5) is unarousable. Patient Monitoring Once the patient has demonstrated a response to the naloxone, continue to monitor respiratory rate, depth, oxygen saturation and end-tidal CO2 (if available) every 15 minutes x 2, then every 30 minutes x 2, then every 1 hour x 1 after each naloxone dose. Consider transfer to ICU if patient respiratory parameters have not improved after 4 naloxone doses. Or naloxone (NARCAN) injection 0.2 mgJump to med 0.2 mg, Intramuscular, EVERY 2 MIN PRN, opioid reversal, Starting on Thu09/21/23 at 0444, Administer intramuscular if an intravenous route is not available and notify provider when administered. For unintended sedation or respiratory depression if all of the below criteria are met: ~ respiratory rate LESS than or EQUAL to 8. ~SaO2 less than 92% and or/end-tidal CO2 is greater than 50. ~ the patient is receiving an opioid, has unintended sedations assessed as RASS (-3), and is currently not on mechanical ventilation. RASS scale moderate (-3) is movement or eye opening to voice but no eye contact. Patient Monitoring Once the patient has demonstrated a response to the naloxone, continue to monitor respiratory rate, depth, oxygen saturation and end-tidal CO2 (if available) every 15 minutes x 2, then every 30 minutes x 2, then every 1 hour x 1 after each naloxone dose. Consider transfer to ICU if patient respiratory parameters have not improved after 4 naloxone doses. Or naloxone (NARCAN) injection 0.4 mgJump to med 0.4 mg, Intramuscular, EVERY 2 MIN PRN, opioid reversal, Starting on Thu09/21/23 at 0444, Administer intramuscular if an intravenous route is not available and notify provider when administered. For unintended sedation or respiratory depression if all of the below criteria are met: ~ respiratory rate LESS than or EQUAL to 8. ~ SaO2 less than 92% and or/end-tidal CO2 is greater than 50. ~ the patient is receiving an opioid, has unintended sedation assessed as RASS (-4) or (-5) and patient is currently not on mechanical ventilation. RASS scale (-4) is deep sedation with no response to voice but movement or eye opening to physical stimulation. RASS scale (-5) is unarousable. Patient Monitoring Once the patient has demonstrated a response to the naloxone, continue to monitor respiratory rate, depth, oxygen saturation and end-tidal CO2 (if available) every 15 minutes x 2, then every 30 minutes x 2, then every 1 hour x 1 after each naloxone dose. Consider transfer to ICU if patient respiratory parameters have not improved after 4 naloxone doses. documented in this encounter Care Teams Building Mechanic Relationship Specialty Start Date End Date Tre Ba MD [address] [facility] 100 [place] [address] PCP - General checker loader 01/15/22 09/19/23 Bassem Pathak MD [address] [place], [place] [address] Assigned OBGYN Provider 08/16/23 documented as of this encounter
--- OUTSIDE RECORDS SUMMARY | 2023-09-23 00:19 | XMS_ITS | Encounter Summary ---
Author Organization [place] Address [facility] [place] [address] Care Team Providers Care Instructional Support Specialist Name Role Phone Tre Ba MD Primary Care Provide r Bassem Pathak MD Unavailable [phone] Reason for Visit * Reason Comments Ultrasound BPP-T2DM Encounter Details Date Type Department Care Team (Late st Contact Info) Description 09/08/2023 12:15 PM CDT Office Visit [facility] [place] [address] [facility] [address] [place] [address] Bassem Pathak MD [address] [place] [address] Mitch Jernigan MD [address] [place], [place] [id number] Pre-existing type 2 diabetes mellitus during in [...] details of today's US at the [facility] ([place], [place]). Mitch Jernigan MD Maternal- Medicine documented in this encounter Nursing Notes * Melissa Aguiar RN - 09/08/2023 12:15 PM CDT Patient reports good movement, reports irregular contractions, denies leaking of fluid, or bleeding. Reports blood sugar values are well controlled on insulin. SBAR given to [facility] , see their note in Epic. documented in this encounter Plan of Treatment Not on file documented as of this encounter Visit Diagnoses Diagnosis Pre-existing type 2 diabetes mellitus during in third trimester- Primary documented in this encounter Care Teams Instructional Support Specialist Relationship Specialty Start Date End Date Tre Ba MD [facility] [address] [place] [address] PCP - General marine engineering teacher 01/15/22 09/19/23 Bassem Pathak MD [address] [place] [address] Assigned OBGYN Provider 08/16/23 documented as of this encounter
--- OUTSIDE RECORDS SUMMARY | 2023-09-23 00:19 | XMS_ITS | Encounter Summary ---
Author Organization [place] Address [facility] [place] [address] Care Team Providers Care Operating Room Specialist Name Role Phone Tre Ba MD Primary Care Provide r Bassem Pathak MD Unavailable [phone] Encounter Details Date Type Department Care Team [...] on filedocumented in this encounter Care Teams Operating Room Specialist Relationship Specialty Start Date End Date Tre Ba MD [address] [place], [place] [address] 100 [place] [address] PCP - General inspector and clerk 01/15/22 09/19/23 Bassem Pathak MD [address] [facility] 400 [place] [address] Assigned OBGYN Provider 08/16/23 documented as of this encounter
--- OUTSIDE RECORDS SUMMARY | 2023-09-23 00:20 | XMS_ITS | Encounter Summary ---
Author Organization [place] Address [address] [facility] [place] [address] Care Team Providers Care Kiln Fireman Name Role Phone Tre Ba MD Primary Care Provide r Bassem Pathak MD Unavailable Reason for Referral * Diagnostic Imaging Ultrasound (Routine) - Pending Review Specialty Diagnoses / Procedures Referred By Temo taylor Referred To Contact Radiology. Diagnoses Pre-existing type 2 diabetes mellitus during in third trimester Procedures [facility] US Comprehensive Single F/U Luz Elena Betts MD [address] [place] [address] Referral ID Status Reason Start Date Expiration Date V isits Requested Visits Authorized [id number] Pending Review 09/02/2023 09/01/2024 1 1 Reason for Visit * Reason Comments Ultrasound BPP- GDMA2, BMI>30 Encounter Details Date Type Department Care Team (Late st Contact Info) Description 09/02/2023 12:15 PM CDT Office Visit [facility] [place] [address] [facility] [address] [place] [address] Luz Elena Betts MD [address] [place] [address] Pre-existing type 2 diabetes mellitus [...] on file documented as of this encounter Results * [facility] Comprehensive Single F/U (09/15/2023 2:12 PM [...] ? Study Date: ??09/15/2023 1:45pm Pat. NO: ??[id number] ?Referring ??MD: HOMAR MEDRANO Site: ? Inspector Elevators: Micha Gage RDMS : ??1985 ?Age: ?? [...] 34w 6d ? Hadlock Weight Calculation: EFW ?3,344 ?g ?98% ? Hadlock EFW (lb,oz) ?8 lb 2 ?oz EFW by ? Hadlock ([id number]) ANATOMY ----- The following structures appear normal: [...] WILDER Study Date: 09/15/2023 1:45pm Pat. NO: [id number] Referring MD: HOMAR MEDRANO Site: Inspector Elevators: Micha Gage RDMS : 1985 Age: 37 [...] EFW (lb,oz) 8 lb 2oz EFW by Hadlock([id number]) ANATOMY ----- The following structures appear normal: [...] is reassuring. Luz Elena Betts MD IMG [facility] US ORDERABLE S documented in this encounter Visit Diagnoses Diagnosis Pre-existing type 2 diabetes mellitus during in third trimester- Primary Pre-existing type 2 diabetes mellitus during in third trimester documented in this encounter Care Teams Kiln Fireman Relationship Specialty Start Date End Date Tre Ba MD [facility] [facility] 100 [place] [address] PCP - General master chef 01/15/22 09/19/23 Bassem Pathak MD [address] [place] [address] Assigned OBGYN Provider 08/16/23 documented as of this encounter
--- OUTSIDE RECORDS SUMMARY | 2023-09-23 00:20 | XMS_ITS | Encounter Summary ---
Author Organization [place] Address [facility] [place] [address] Care Team Providers Care Guidance Director Name Role Phone Tre Ba MD Primary Care Provide r Bassem Pathak MD Unavailable [phone] Reason for Visit * Reason Comments Ultrasound RL2/BPP- DM2 poor co ntrol Encounter Details Date Type Department Care Team (Late st Contact Info) Description 08/21/2023 12:15 PM CDT Office Visit [facility] [place] [address] [place] [address] Cristiane Patel MD [address] [place] [address] Mitch Jernigan MD [address] [place] [address] Pre-existing type 2 diabetes mellitus [...] for details of today's US at the [facility]. Mitch Jernigan MD Maternal- Medicine documented in this encounter Nursing Notes * Laura Vila RN - 08/21/2023 12:15 PM CDT Pt at [facility] for ultrasound- see detailed report under imaging tab. Pt reports positive movement, denies other concerns at this time. Has been able to bead picker insulin- reports fasting value of 93,after meal 115. SBAR given to MD. documented in this encounter Plan of Treatment Not on file documented as of this encounter Visit Diagnoses Diagnosis Pre-existing type 2 diabetes mellitus during in third trimester- Primary Polyhydramnios affecting documented in this encounter Care Teams Guidance Director Relationship Specialty Start Date End Date Tre Ba MD [facility] [address] [facility] 100 [place], [place] [id number] PCP - General ball ender 01/15/22 09/19/23 Bassem Pathak MD [address] [address] [place], [place] [address] Assigned OBGYN Provider 08/16/23 documented as of this encounter
--- OUTSIDE RECORDS SUMMARY | 2023-09-23 00:20 | XMS_ITS | Encounter Summary ---
Author Organization [place] Address [address] [facility] [place] [address] Care Team Providers Care Finished Carpet Inspector Name Role Phone Tre Ba MD Primary Care Provide r Bassem Pathak MD Unavailable [phone] Reason for Visit * Reason Comments Ultrasound BPP- T2DM on insulin , mild poly Encounter Details Date Type Department Care Team (Late st Contact Info) Description 08/25/2023 12:15 PM CDT Office Visit [facility] M[facility] Medicine [facility] [place] [address] [place] [address] Bassem Pathak MD [address] [place] [address] Luz Elena Betts MD [address] [place] [address] Pre-existing type 2 diabetes mellitus [...] fetus documented in this encounter Care Teams Finished Carpet Inspector Relationship Specialty Start Date End Date Tre Ba MD [facility] 100 [place] [address] PCP - General straight line edger 01/15/22 09/19/23 Bassem Pathak MD [address] [place] [address] Assigned OBGYN Provider 08/16/23 documented as of this encounter
--- OUTSIDE RECORDS SUMMARY | 2023-09-23 00:20 | XMS_ITS | Encounter Summary ---
Author Organization [place] Address [address] [facility] [address] Care Team Providers Care Flat Grinder Operator Name Role Phone Tre Ba MD Primary Care Provide r Reason for Visit * Reason Onset Date Comments Results 08/03/2023 Low Risk Expande d NIPT Encounter Details Date Type Department Care Team (Late st Contact Info) Description 08/03/2023 Telephone [facility] [address] [place] [phone] Laura Abdi, GC [address] [place] [address] 400 [place] [address] Results (Low Risk Expanded NIPT) [...] on filedocumented in this encounter Care Teams Flat Grinder Operator Relationship Specialty Start Date End Date Tre Ba MD [address] [facility] 100 [place] [address] PCP - General drapery maker 01/15/22 09/19/23 documented as of this encounter
--- OUTSIDE RECORDS SUMMARY | 2023-09-23 00:20 | XMS_ITS | Encounter Summary ---
Author Organization [place] Address [address] [place] [address]. [place] [address] Care Team Providers Care Seam Stay Stitcher Name Role Phone Tre Ba MD [...] on filedocumented in this encounter Care Teams Seam Stay Stitcher Relationship Specialty Start Date End Date [facility] [address] [address] PCP - General veterinary livestock inspector 01/15/22 09/19/23 documented as of this encounter
--- OUTSIDE RECORDS SUMMARY | 2023-09-23 00:20 | XMS_ITS | Encounter Summary ---
Author Organization [place] Address [facility] [place] [address] Care Team Providers Care Typists Supervisor Name Role Phone Tre Ba MD Primary Care Provide r Bassem Pathak MD Unavailable Reason for Referral * Diagnostic Imaging Ultrasound (Routine) - Pending Review Specialty Diagnoses / Procedures Referred By Temo taylor Referred To Contact Radiology. Diagnoses Pre-existing type 2 diabetes mellitus during in third trimester Procedures [facility] Bassem Dhillon MD [address] [facility] [address] [place] [address] Referral ID Status Reason Start Date Expiration Date V isits Requested Visits Authorized [id number] Pending Review 07/30/2023 07/29/2024 1 1 Reason for Visit * Diagnostic Imaging Ultrasound (Routine) - Pending Review Specialty Diagnoses / Procedures Referred By Temo taylor Referred To Contact Radiology. Diagnoses Pre-existing type 2 diabetes mellitus during in third trimester Procedures [facility] Bassem Dhillon MD [address] [place] [address] Referral ID Status Reason Start Date Expiration Date V isits Requested Visits Authorized [id number] Pending Review 07/30/2023 07/29/2024 1 1 Encounter Details Date Type Department Care Team (Latest Contact Info) Description 09/02/2023 11:45 AM CDT - 09/02/2023 11:59 PM CDT Hospital Encounter [facility] M[facility] Medicine [facility] [place] [address] [facility] [address] [place] [address] Luz Elena Betts MD [address] [place] [address] Pre-existing type 2 diabetes mellitus [...] Associated Diagnosis Comments M BPP SINGLE Routine 09/02/2023 12:22 PM CDT Pre-existing type 2 diabetes mellitus during in third trimester documented in this encounter Results * [facility] BPP Single (09/02/2023 12:22 PM CDT) Anatomical Region Laterality Modality Ultrasound 09/02/2023 11:5 8 AM CDT Impressions 09/02/2023 4:11 PM CDT IMPRESSION ----- 1) Gonzalez intrauterine at 34w 4d gestational age. 2) The BPP is reassuring. 3) Mild polyhydramnios was again noted. Narrative 09/02/2023 4:11 PM CDT ?BPP ----- Pat. Name: SHEBA WILDER ? Study Date: ??09/02/2023 11:58am Pat. NO: ??[id number] ?Referring ??MD: HOMAR MEDRANO Site: ? [employer]: Lashonda Barlow RDMS : ??1985 ?Age: ?? [...] surveillance with twice weekly BPP, alternating between [facility] and [facility]. Return to primary provider for [...] WILDER Study Date: 09/02/2023 11:58am Pat. NO: [id number] Referring MD: HOMAR MEDRANO Site: [employer]: Lashonda Barlow RDMS : 1985 Age: 37 [...] Continue surveillance with twice weekly BPP, [facility] and [facility]. Return to primary provider for continued care. Thank-you for the opportunity to participate in the care of this patient.If you have questions regarding today's evaluation or if we can be [facility] center[facility] service, please contact the Maternal- Medicine Center. anomalies may be present but not detected IMPRESSION ----- 1) Gonzalez intrauterine at 34w 4d gestational age. 2) The BPP is reassuring. 3) Mild polyhydramnios was again noted. Bassem Pathak MD IMG [facility] US ORDERABLE S documented in this encounter Visit Diagnoses Diagnosis Pre-existing type 2 diabetes mellitus during in third trimester documented in this encounter Care Teams Typists Supervisor Relationship Specialty Start Date End Date Tre Ba MD [facility] [address] [place] [address] PCP - General clinical athletic instructor 01/15/22 09/19/23 Bassem Pathak MD [address] [place], [place] [address] Assigned OBGYN Provider 08/16/23 documented as of this encounter
--- OUTSIDE RECORDS SUMMARY | 2023-09-23 00:20 | XMS_ITS | Encounter Summary ---
Author Organization [place] Address [facility] [place] [address] Care Team Providers Care Facs Teacher Name Role Phone Tre Ba MD Primary Care Provide r Bassem Pathak MD Unavailable [phone] Encounter Details Date Type Department Care Team [...] on filedocumented in this encounter Care Teams Facs Teacher Relationship Specialty Start Date End Date Tre Ba MD [address] [place], [place] [address] [address] [place] [address] PCP - General dust box tender 01/15/22 09/19/23 Bassem Pathak MD [address] [facility] 400 [place] [address] Assigned OBGYN Provider 08/16/23 documented as of this encounter
--- OUTSIDE RECORDS SUMMARY | 2023-09-23 00:20 | XMS_ITS | Encounter Summary ---
Author Organization [place] Address [facility] [place] [address] Care Team Providers Care Railways Assistant Name Role Phone Tre Ba MD Primary Care Provide r Reason for Visit * Reason Comments Ultrasound BPP-uncontrolled Typ e 2 DM Encounter Details Date Type Department Care Team (Late st Contact Info) Description 08/14/2023 4:00 PM CDT Office Visit [facility] Medicine [facility] [place] [address] [facility] [address] [place] [address] Cristiane Patel MD [address] [place] [address] Mtich Jernigan MD [address] [place] [address] Pre-existing type 2 diabetes mellitus [...] for details of today's US at the [facility]. Mitch Jernigan MD Maternal- Medicine documented in this encounter Nursing Notes * Melissa Aguiar, RN - 08/14/2023 4:00 PM CDT Patient reports good movement, denies contractions, leaking of fluid, or bleeding. BPP 8/. Sheba's blood sugar values fasting 154 today [...] message for educator at [facility] in [place] where patient states she gets her care. Also called to primary OB clinic([facility]) at 1555 and spokewith [...] was placed again to [facility] in [place]. Spoke with certified diabetes educator Angelica. Patient confirmed with Angelica that she has her meal time insulin at home but is in need of her long acting insulin and has not been taking for one week as she was unable to get it at the pharmacy the day it was prescribed and was then out of town.Angelica sent in new prescription to [facility] in [place] per patient request. Plan made with patient to get insulin tonight and if unable to obtain at the pharmacy she will call the Endocrinology clinic to reach the communications professional provider to assist her in getting her insulin. Patient agreeable to plan and verbalizes understanding of the importance of managing her blood glucose levels. Angelica requested patient call in on Thursday to report glucose levels with a certified diabetes educator. All patient questions answered. SBAR was done with Dr. Jernigan. documented in this encounter Plan of Treatment Not on file documented as of this encounter Visit Diagnoses Diagnosis Pre-existing type 2 diabetes mellitus during in third trimester- Primary Polyhydramnios affecting documented in this encounter Care Teams Railways Assistant Relationship Specialty Start Date End Date Tre Ba MD [facility] [address] [address] PCP - General orthodontic assistant 01/15/22 09/19/23 documented as of this encounter
--- OUTSIDE RECORDS SUMMARY | 2023-09-23 00:20 | XMS_ITS | Encounter Summary ---
Author Organization [place] Address Pending sale to [facility] [place] [address] Care Team Providers Care Fagot Heater Name Role Phone Tre Ba MD Primary Care Provide r Bassem Pathak MD Unavailable Reason for Referral * Diagnostic Imaging Ultrasound (Routine) - Pending Review Specialty Diagnoses / Procedures Referred By Temo taylor Referred To Contact Radiology. Diagnoses Pre-existing type 2 diabetes mellitus during in third trimester Procedures [facility] Bassem Dhillon MD [address] [facility] [address] [address] [facility] [address] [place] [address] Referral ID Status Reason Start Date Expiration Date V isits Requested Visits Authorized [id number] Pending Review 07/30/2023 07/29/2024 1 1 Reason for Visit * Diagnostic Imaging Ultrasound (Routine) - Pending Review Specialty Diagnoses / Procedures Referred By Temo taylor Referred To Contact Radiology. Diagnoses Pre-existing type 2 diabetes mellitus during in third trimester Procedures [facility] Bassem Dhillon MD [address] [place] [address] Referral ID Status Reason Start Date Expiration Date V isits Requested Visits Authorized [id number] Pending Review 07/30/2023 07/29/2024 1 1 Encounter Details Date Type Department Care Team (Latest Contact Info) Description 08/25/2023 11:45 AM CDT - 08/25/2023 11:59 PM CDT Hospital Encounter [facility] [place] [facility] [address] [place] [address] Bassem Pathak MD [address] [place], [place] [address] Luz Elena Betts MD [address] [place], [place] [address] Pre-existing type 2 diabetes mellitus during in [...] Procedure Name Priority Date/Time Associated Diagnosis Comments [facility] BPP SINGLE Routine 08/25/2023 12:05 PM CDT Pre-existing type 2 diabetes mellitus during in third trimester documented in this encounter Results * [facility] BPP Single (08/25/2023 12:05 PM CDT) Anatomical Region Laterality Modality Ultrasound 08/25/2023 11:4 8 AM CDT Impressions 08/25/2023 1:03 PM CDT IMPRESSION ----- 1) Gonzalez intrauterine at 33w 3d gestational age. 2) The BPP is reassuring. 3) Mild polyhydramnios is noted. Narrative 08/25/2023 1:03 PM CDT ?BPP ----- Pat. Name: SHEBA WILDER ? Study Date: ??08/25/2023 11:48am Pat. NO: ??[id number] ?Referring ??MD: HOMAR MEDRANO Site: ? Asphalt Tile Floor Layer: Micha Gage RDMS : ??1985 ?Age: ?? 37 ----- INDICATION ----- Type 2 diabetes - on insulin Mild polyhydramnios METHOD ----- Transabdominal ultrasound examination. View: Sufficient ----- Gonzalez . Number of fetuses: 1 DATING ----- ? Date ?Details ?Gest. age ?BROOKE LMP ?01/03/2023 ?33 w + 3 d ? 10/10/2023 Stated BROKOE ? 33 w + 3 d ? [...] [facility] and [facility]. Return to primary provider for [...] WILDER Study Date: 08/25/2023 11:48am Pat. NO: [id number] Referring MD: HOMAR MEDRANO Site: Asphalt Tile Floor Layer: Micha Gage RDMS : 1985 Age: 37 [...] [facility] and [facility]. Return to primary provider for [...] Mild polyhydramnios is noted. Bassem Pathak MD [facility] US ORDERABLE S documented in this encounter Visit Diagnoses Diagnosis Pre-existing type 2 diabetes mellitus during in third trimester documented in this encounter Care Teams Fagot Heater Relationship Specialty Start Date End Date Tre Ba MD [address] [place] [address] [facility] [address] [place] [address] PCP - General nurse supervisor 01/15/22 09/19/23 Bassem Pathak MD [address] [address] [facility] [address] [place] [address] Assigned OBGYN Provider 08/16/23 documented as of this encounter
--- OUTSIDE RECORDS SUMMARY | 2023-09-23 00:20 | XMS_ITS | Encounter Summary ---
Author Organization [place] Address [facility] [place] [address] Care Team Providers Care Tool Checker Name Role Phone Tre Ba MD Primary Care Provide r Bassem Pathak MD Unavailable [phone] Encounter Details Date Type Department Care Team ([facility] st Contact Info) Description 08/26/2023 [facility] [address] [place] [address] Cheri Peters LPN Social History [...] on filedocumented in this encounter Care Teams Tool Checker Relationship Specialty Start Date End Date Tre Ba MD [address] [place] [address] PCP - General diagnostic technologist 01/15/22 09/19/23 Bassem Pathak MD [address] [facility] 400 [place] [address] Assigned OBGYN Provider 08/16/23 documented as of this encounter
--- OUTSIDE RECORDS SUMMARY | 2023-09-23 00:20 | XMS_ITS | Encounter Summary ---
Author Organization [place] Address [facility] [address] Care Team Providers Care Business Planning Director Name Role Phone Tre Ba MD Primary Care Provide r Reason for Referral * Diagnostic Imaging Ultrasound (Routine) - Pending Review Specialty Diagnoses / Procedures Referred By Contac t Referred To Contact Radiology. Diagnoses Diabetes mellitus, type 2 (H) Polyhydramnios affecting Procedures [facility] Cristiane Rubin MD [address] [place] [address] Referral ID Status Reason Start Date Expiration Date V isits Requested Visits Authorized [id number] Pending Review 07/24/2023 07/23/2024 1 1 Reason for Visit * Diagnostic Imaging Ultrasound (Routine) - Pending Review Specialty Diagnoses / Procedures Referred By Contac t Referred To Contact Radiology. Diagnoses Diabetes mellitus, type 2 (H) Polyhydramnios affecting Procedures [facility] Cristiane Rubin MD [address] [place] [address] Referral ID Status Reason Start Date Expiration Date V isits Requested Visits Authorized [id number] Pending Review 07/24/2023 07/23/2024 1 1 Encounter Details Date Type Department Care Team (Latest Contact Info) Description 08/14/2023 3:30 PM CDT - 08/14/2023 11:59 PM CDT Hospital Encounter [facility] [place] [address] [facility] [address] [place] [address] Cristiane Patel MD [address] [place] [address] Mitch Jernigan MD [address] [place] [address] Polyhydramnios affecting Discharge Disposition: Home [...] Procedure Name Priority Date/Time Associated Diagnosis Comments [facility] BPP SINGLE Routine 08/14/2023 3:54 PM CDT Polyhydramnios affecting documented in this encounter Results * [facility] BPP Single (08/14/2023 3:54 PM CDT) Anatomical Region Laterality Modality Ultrasound 08/14/2023 3:35 PM CDT Impressions 08/14/2023 4:06 PM CDT IMPRESSION ----- 1) Mild polyhydramnios. 2) BPP is reassuring. Narrative 08/14/2023 4:06 PM CDT ?BPP ----- Pat. Name: SHEBA WILDER ? Study Date: ??08/14/2023 3:35pm Pat. NO: ??[id number] ?Referring ??MD: HOMAR MEDRANO Site: ? Short Piece Handler: Gemma Pinzon RDMS : ??1985 ?Age: ?? [...] has not contacted your office or her offshore wind turbine technician. Currently we are not reviewing her blood [...] WILDER Study Date: 08/14/2023 3:35pm Pat. NO: [id number] Referring MD: HOMAR MEDRANO Site: Short Piece Handler: Gemma AMALIA Pinzon : 1985 Age: 37 ----- INDICATION ----- [...] and has notcontacted your office or her offshore wind turbine technician. Currently we are not reviewing her blood [...] 2) BPP is reassuring. Cristiane Patel MD [facility] ORDERABLE S documented in this encounter Visit Diagnoses Diagnosis Polyhydramnios affecting documented in this encounter Care Teams Business Planning Director Relationship Specialty Start Date End Date Tre Ba MD [address] [address] PCP - General billboard poster 01/15/22 09/19/23 documented as of this encounter
--- OUTSIDE RECORDS SUMMARY | 2023-09-23 00:20 | XMS_ITS | Encounter Summary ---
Author Organization [place] Address [facility] [place] [place] [address] Care Team Providers Care Cuffer Name Role Phone Tre Ba MD Primary Care Provide r Bassem Pathak MD Unavailable [phone] Encounter Details Date Type Department Care Team [...] on filedocumented in this encounter Care Teams Cuffer Relationship Specialty Start Date End Date Tre Ba MD [address] [place], [place] [address] [address] [place] [address] PCP - General electrical maintenance man 01/15/22 09/19/23 Bassem Pathak MD [address] [facility] [address] [place] [address] Assigned OBGYN Provider 08/16/23 documented as of this encounter
--- OUTSIDE RECORDS SUMMARY | 2023-09-23 00:20 | XMS_ITS | Encounter Summary ---
Author Organization [place] Address [facility] [place] [address] Care Team Providers Care X Ray Equipment Mechanic Name Role Phone Tre Ba MD Primary Care Provide r Bassem Pathak MD Unavailable [phone] Reason for Referral * Diagnostic Imaging Ultrasound (Routine) - Pending Review Specialty Diagnoses / Procedures Referred By Contac brandon Referred To Contact Radiology. Diagnoses Diabetes mellitus, type 2 (H) Polyhydramnios affecting Procedures [facility] US Comprehensive Single F/U Cristiane Patel MD [address] [place] [address] Referral ID Status Reason Start Date Expiration Date V isits Requested Visits Authorized [id number] Pending Review 07/24/2023 07/23/2024 1 1 Reason for Visit * Diagnostic Imaging Ultrasound (Routine) - Pending Review Specialty Diagnoses / Procedures Referred By Temo taylor Referred To Contact Radiology. Diagnoses Diabetes mellitus, type 2 (H) Polyhydramnios affecting Procedures [facility] US Comprehensive Single F/U Cristiane Patel MD [address] [place] [address] Referral ID Status Reason Start Date Expiration Date V isits Requested Visits Authorized [id number] Pending Review 07/24/2023 07/23/2024 1 1 Encounter Details Date Type Department Care Team (Latest Contact Info) Description 08/21/2023 11:45 AM CDT - 08/21/2023 11:59 PM CDT Hospital Encounter [facility] [place] [address] [facility] [address] [place] [address] Cristiane Patel MD [address] [place] [address] Mitch Jernigan MD [address] [place] [address] Polyhydramnios affecting Discharge Disposition: Home [...] Procedure Name Priority Date/Time Associated Diagnosis Comments [facility] COMPREHENSIVE SINGLE F/U Routine 08/21/2023 12:39 PM CDT Polyhydramnios affecting documented in this encounter Results * [facility] US Comprehensive Single F/U (08/21/2023 [...] ? Study Date: ??08/21/2023 11:58am Pat. NO: ??[id number] ?Referring ??MD: HOMAR MEDRANO Site: ? Desulphuring Operator: Yamila Dutton RDMS : ??1985 ?Age: ?? [...] lb 4 ?oz EFW by ? Hadlock ([id number]) Head / Face / Neck Biometry: Tar Distributor Operator ?4.4 ? mm ANATOMY ----- The [...] Heart / Thorax ?RVOT view. LVOT view. 9-bseido-zmxunlo view. Spine ?Cervical spine. sex: male. MATERNAL STRUCTURES ----- Cervix ?Suboptimal Right Ovary ?Not examined Left Ovary ?Not examined RECOMMENDATION ----- We discussed the findings on today's ultrasound with the patient. The patient has the following ultrasounds already scheduled: 1) BPP once weekly at your clinic. 2) BPP once weekly at [facility]. 3) echo on 08/28/23 with Pediatric Cardiology. 4) growth assessment at [facility] in 4 weeks. Given the [...] WILDER Study Date: 08/21/2023 11:58am Pat. NO: [id number] Referring MD: HOMAR MEDRANO Site: Desulphuring Operator: Yamila Dutton RDMS : 1985 Age: 37 [...] EFW (lb,oz) 6 lb 4oz EFW by Hadlock([id number]) Head / Face / Neck Biometry: Tar Distributor Operator 4.4mm ANATOMY ----- The following structures appear normal: Head / Neck Cranium. Head size. Head shape.Lateral ventricles. Midline falx. Cavum septi pellucidi. Cerebellum.Cisterna magna. Thalami. Face Profile. Heart / Thorax 4-chamber view. Diaphragm. Abdomen Stomach. Kidneys. Bladder. Spine Thoracic spine. Lumbar spine.Sacral spine. The following structures were documented previously: Face Lips. Nose. Heart / Thorax RVOT view. LVOT view. 2-fmseme-bvhrchfnfhc. Spine Cervical spine. sex: male. MATERNAL STRUCTURES ----- Cervix Suboptimal Right Ovary Not examined Left Ovary Not examined RECOMMENDATION ----- We discussed the findings on today's ultrasound with the patient. The patient has the following ultrasounds already scheduled: 1) BPP once weekly at your clinic. 2) BPP once weekly at [facility]. 3) echo on 08/28/23 with Pediatric Cardiology. 4) growth assessment at [facility] in 4 weeks. Given the [...] affecting documented in this encounter Care Teams X Ray Equipment Mechanic Relationship Specialty Start Date End Date Tre Ba MD [facility] [address] [facility] [address] [place] [address] PCP - General enrollment consultant 01/15/22 09/19/23 Bassem Pathak MD [address] [facility] [address] [place] [address] Assigned OBGYN Provider 08/16/23 documented as of this encounter
--- OUTSIDE RECORDS SUMMARY | 2023-09-23 00:21 | XMS_ITS | Encounter Summary ---
Author Organization [place] Address [address] [place] [address]. [place] [address] Care Team Providers Care Munitions Factory Worker Name Role Phone Tre Ba MD [...] on filedocumented in this encounter Care Teams Munitions Factory Worker Relationship Specialty Start Date End Date [facility] [address] [address] PCP - General trapeze artist 01/15/22 09/19/23 documented as of this encounter
--- OUTSIDE RECORDS SUMMARY | 2023-09-23 00:21 | XMS_ITS | Encounter Summary ---
Author Organization [place] Address [facility]0 [facility] [place] [address] Care Team Providers Care Metallurgical Engineer Name Role Phone Tre Ba MD Primary Care Provide r Reason for Referral * Diagnostic Imaging Ultrasound (Routine) - Pending Review Specialty Diagnoses / Procedures Referred By Contac t Referred To Contact Radiology. Diagnoses Diabetes mellitus, type 2 (H) Polyhydramnios affecting Procedures [facility] Cristiane Rubin MD [address] [place] [address] Referral ID Status Reason Start Date Expiration Date V isits Requested Visits Authorized [id number] Pending Review 07/24/2023 07/23/2024 1 1 Reason for Visit * Diagnostic Imaging Ultrasound (Routine) - Pending Review Specialty Diagnoses / Procedures Referred By Contac t Referred To Contact Radiology. Diagnoses Diabetes mellitus, type 2 (H) Polyhydramnios affecting Procedures Cristiane Jaimes MD [address] [place] [address] Referral ID Status Reason Start Date Expiration Date V isits Requested Visits Authorized [id number] Pending Review 07/24/2023 07/23/2024 1 1 Encounter Details Date Type Department Care Team (Latest Contact Info) Description 07/30/2023 3:25 PM CDT - 07/30/2023 11:59 PM CDT Hospital Encounter [facility] [address] [place] [address] Bassem Pathak MD [address] [place], [place] [address]E [facility] [address] [place] [address] Polyhydramnios affecting Discharge Disposition: Home or Self [...] Procedure Name Priority Date/Time Associated Diagnosis Comments [facility] BPP SINGLE Routine 07/30/2023 3:46 PM CDT Polyhydramnios affecting documented in this encounter Results * [facility] BPP Single (07/30/2023 3:46 PM CDT) [...] ? Study Date: ??07/30/2023 3:27pm Pat. NO: ??[id number] ?Referring ??MD: HOMAR MEDRANO Site: ??[place] ? Head Of Marketing Adometry: Lashonda Barlow RDMS : ??1985 ?Age: ?? [...] with MFM and once with PCP in [place]. Recommend delivery for GDM A2 and pregestational: ? Well controlled: [id number] ? Poorly controlled: 73y0b-20k0a ? Failed in-hospital attempt at control: [id number]-75u6b Thank you for the opportunity to participate in the care of this patient. If you have questions regarding today's evaluation or if we can be of further service, please contact the [facility]. anomalies may be present but not detected Procedure Note Bassem Pathak MD - 07/30/2023 BPP ----- Pat. Name: SHEBA WILDER Study Date: 07/30/2023 3:27pm Pat. NO: [id number] Referring MD: HOMAR MEDRANO Site: [facility] Head Of Marketing Adometry: Lashonda Barlow RDMS : 1985 Age: 37 [...] here with MF and once withPCP in [place]. Recommend delivery for GDM A2 and pregestational: ? Well controlled: [id number] ? Poorly controlled: [id number]-[id number] ? Failed in-hospital attempt at control: 65y4w-19m7d Thank you for the opportunity to participate [...] volume appears normal. Cristiane Patel MD [facility] US ORDERABLE S documented in this encounter Visit Diagnoses Diagnosis Polyhydramnios affecting documented in this encounter Care Teams Metallurgical Engineer Relationship Specialty Start Date End Date Tre Ba MD [facility] [address] [address]- PCP - General bioinformatics engineer 01/15/22 09/19/23 documented as of this encounter
--- OUTSIDE RECORDS SUMMARY | 2023-09-23 00:21 | XMS_ITS | Encounter Summary ---
Author Organization [place] Address [address] [facility] [place] [address] Care Team Providers Care Motion Graphics Designer Name Role Phone Tre Ba MD Primary Care Provide r Reason for Visit * Reason Onset Date Comments Care 07/29/2023 Encounter Details Date Type Department Care Team (Late st Contact Info) Description 07/29/2023 Telephone [facility] [place] [address] [facility] [address] [place] [address] Carrie Smith, RN Care (/) [...] Smith RN - 07/29/2023 12:07 PM CDT [facility] called to discuss coordinating care between [facility] clinic and [facility]. Plan for [facility] to do once weekly NSTs in the beginning of the week starting at 32 weeks and [facility] will do BPPs toward the end of the week starting at 32 weeks. [facility]. Pt will need to schedule more weekly BPPs after 08/21/23. Carrie Smith, RN on 07/29/2023 at 12:11 PM documented in this encounter Plan of Treatment Not on file documented as of this encounter Visit Diagnoses Not on filedocumented in this encounter Care Teams Motion Graphics Designer Relationship Specialty Start Date End Date Tre Ba MD [employer] [address] PCP - General welfare specialist 01/15/22 09/19/23 documented as of this encounter
--- OUTSIDE RECORDS SUMMARY | 2023-09-23 00:21 | XMS_ITS | Encounter Summary ---
Author Organization [place] Address [facility] [address] Care Team Providers Care Store Protection Specialist Name Role Phone Tre Ba MD Primary Care Provide r Reason for Referral * Diagnostic Imaging Ultrasound (Routine) - Pending Review Specialty Diagnoses / Procedures Referred By Contac t Referred To Contact Radiology. Diagnoses Pre-existing type 2 diabetes mellitus during in third trimester Procedures [facility] Bassem Mcmahan MD [address] [facility] [address] [place] [address] Referral ID Status Reason Start Date Expiration Date V isits Requested Visits Authorized [id number] Pending Review 07/30/2023 07/29/2024 1 1 * Diagnostic Imaging Ultrasound (Routine) - Pending Review Specialty Diagnoses / Procedures Referred By Contac t Referred To Contact Radiology. Diagnoses Pre-existing type 2 diabetes mellitus during in third trimester Procedures [facility] Bassem Dhillon MD [address] [place] [address] Referral ID Status Reason Start Date Expiration Date V isits Requested Visits Authorized [id number] Pending Review 07/30/2023 07/29/2024 1 1 * Diagnostic Imaging Ultrasound (Routine) - Pending Review Specialty Diagnoses / Procedures Referred By Contac t Referred To Contact Radiology. Diagnoses Pre-existing type 2 diabetes mellitus during in third trimester Procedures [facility] BPP Single Bassem Pathak MD [address] [place] [address] Referral ID Status Reason Start Date Expiration Date V isits Requested Visits Authorized [id number] Pending Review 07/30/2023 07/29/2024 1 1 Reason for Visit * Reason Comments Ultrasound BPP: DM2 - poorly co ntrolled Encounter Details Date Type Department Care Team (Late st Contact Info) Description 07/30/2023 4:00 PM CDT Office Visit [facility] Maternal Medicine [address] [address] Bassem Pathak MD [address] [place] [address] Pre-existing type 2 diabetes mellitus [...] 07/30/2023 4:00 PM CDT Patient presents to [facility] for BPP at 29w5d due to DM2 - poorly controlled. Positive movement. Denies LOF, vaginal bleeding or cramping/contractions. SBAR given to M , see their note in Epic. documented in this encounter Plan of Treatment Not on file documented as of this encounter Results * [facility] BPP Single (09/08/2023 12:22 PM CDT) Anatomical Region Laterality Modality Ultrasound 09/08/2023 12:0 1 PM CDT Impressions 09/08/2023 12:24 PM CDT IMPRESSION ----- 1) Mild polyhydramnios. 2) BPP is reassuring. Narrative 09/08/2023 12:24 PM CDT ?BPP ----- Pat. Name: JACK WILDER ? Study Date: ??09/08/2023 12:01pm Pat. NO: ??[id number] ?Referring ??MD: HOMAR MEDRANO Site: ? High School Band Director: Gemma Pinzon RDMS : ??1985 ?Age: ?? [...] BPP at your office weekly and at [facility] weekly. Return to primary provider for continued care. Thank-you for the opportunity to participate in the care of this patient. If you have questions regarding today's evaluation or if we can be of further service, please contact the [facility]. anomalies may be present but not detected Procedure Note Mitch Jernigan MD - 09/08/2023 BPP ----- Pat. Name: JACK WILDER Study Date: 09/08/2023 12:01pm Pat. NO: [id number] Referring MD: HOMAR MEDRANO Site: High School Band Director: Gemma Pinzon RDMS : 1985 Age: [...] [facility] at [facility] office [facility]. Return to primary provider for continued care. Thank-you for the opportunity to participate in the care of this patient.If you have questions regarding today's evaluation or if we can be offurther service, please contact the [facility]. anomalies may be present but not detected IMPRESSION ----- 1) Mild polyhydramnios. 2) BPP is reassuring. Bassem Pathak MD [facility] US ORDERABLE S [facility] BPP Single (09/02/2023 12:22 PM CDT) Anatomical Region Laterality Modality Ultrasound 09/02/2023 11:5 8 AM CDT Impressions 09/02/2023 4:11 PM CDT IMPRESSION ----- 1) Gonzalez intrauterine at 34w 4d gestational age. 2) The BPP is reassuring. 3) Mild polyhydramnios was again noted. Narrative 09/02/2023 4:11 PM CDT ?BPP ----- Pat. Name: JACK WILDER ? Study Date: ??09/02/2023 11:58am Pat. NO: ??[id number] ?Referring ??MD: HOMAR MEDRANO Site: ? High School Band Director: Lashonda Barlow RDMS : ??1985 ?Age: ?? [...] with twice weekly BPP, alternating between [facility] and [facility]. Return to primary provider for continued care. Thank-you for the opportunity to participate in the care of this patient. If you have questions regarding today's evaluation or if we can be of further service, please contact the [facility]. anomalies may be present but not detected Procedure Note Luz Elena Betts MD - 09/02/2023 BPP ----- Pat. Name: JACK WILDER Study Date: 09/02/2023 11:58am Pat. NO: [id number] Referring MD: HOMAR MEDRANO Site: High School Band Director: Lashonda Barlow RDMS : 1985 Age: 37 [...] surveillance with twice [facility], [facility]. Return to primary provider [...] polyhydramnios was again noted. Bassem Pathak MD Lydia [facility] US ORDERABLE S * [facility] BPP Single (08/25/2023 12:05 PM CDT) Anatomical Region Laterality Modality Ultrasound 08/25/2023 11:4 8 AM CDT Impressions 08/25/2023 1:03 PM CDT IMPRESSION ----- 1) Gonzalez intrauterine at 33w 3d gestational age. 2) The BPP is reassuring. 3) Mild polyhydramnios is noted. Narrative 08/25/2023 1:03 PM CDT ?BPP ----- Pat. Name: JACK WILDER ? Study Date: ??08/25/2023 11:48am Pat. NO: ??[id number] ?Referring ??MD: HOMAR MEDRANO Site: ? High School Band Director: Micha Gage RDMS : ??1985 ?Age: [...] with twice weekly BPP, alternating between [facility] and [facility]. Return to primary provider for continued care. Thank-you for the opportunity to participate in the care of this patient. If you have questions regarding today's evaluation or if we can be of further service, please contact the [facility]. anomalies may be present but not detected Procedure Note Luz Elena Betts MD - 08/25/2023 BPP ----- Pat. Name: GRACE JACK Study Date: 08/25/2023 11:48am Pat. NO: [id number] Referring MD: HOMAR MEDRANO Site: High School Band Director: Micha Gage RDMS : 1985 Age: [...] surveillance with twice [facility], [facility]. Return to primary provider for [...] polyhydramnios is noted. Bassem Pathak MD IMG [facility] US ORDERABLE S documented in this encounter Visit Diagnoses Diagnosis Pre-existing type 2 diabetes mellitus during in third trimester- Primary Pre-existing type 2 diabetes mellitus during in third trimester Pre-existing type 2 diabetes mellitus during in third trimester Pre-existing type 2 diabetes mellitus during in third trimester documented in this encounter Care Teams Store Protection Specialist Relationship Specialty Start Date End Date Tre Ba MD [address] [address] PCP - General facilities project manager 01/15/22 09/19/23 documented as of this encounter
--- OUTSIDE RECORDS SUMMARY | 2023-09-23 00:21 | XMS_ITS | Encounter Summary ---
Author Organization [place] Address [address] [facility] [place] [address] Care Team Providers Care Correctional Case Records Supervisor Name Role Phone Tre Ba MD Primary Care Provide r Encounter Details Date Type Department Care Team (Late st Contact Info) Description 07/24/2023 Medical Correspondence [facility] [address] [place] [address] Scan, Non-Provider Social History Tobacco [...] on filedocumented in this encounter Care Teams Correctional Case Records Supervisor Relationship Specialty Start Date End Date Tre [facility] MD [facility] [address] PCP - General securities adviser 01/15/22 09/19/23 documented as of this encounter
--- OUTSIDE RECORDS SUMMARY | 2023-09-23 00:22 | XMS_ITS | Encounter Summary ---
Author Organization [place] Address [address] [place] [address]. [place] [address] Care Team Providers Care Quebracho Tanner Name Role Phone Tre Ba MD Primary Care Provide r Reason for Referral * Consultation (Routine: Next available opening) - Pending Review Specialty Diagnoses / Procedures Referred By Contac t Referred To Contact Diagnoses related condition, antepartum Ilene Kaplan APRN CNP [facility] [address] [place] [address] Referral ID Status Reason Start Date Expiration Date V isits Requested Visits Authorized [id number] Pending Review 07/03/2023 07/02/2024 1 1 Comments AMA * Diagnostic Imaging Ultrasound (Routine) - Pending Review Specialty Diagnoses / Procedures Referred By Contac t Referred To Contact Radiology. Diagnoses related condition, antepartum Procedures MFM US Comprehensive Single Ilene Kaplan APRN CNP [facility] [address] [place] [address] Referral ID Status Reason Start Date Expiration Date V isits Requested Visits Authorized [id number] Pending Review 07/03/2023 07/02/2024 1 1 * Consultation (Routine: Next available opening) - Pending Review Specialty Diagnoses / Procedures Referred By Contac t Referred To Contact Diagnoses related condition, antepartum Ilene Kaplan APRN CNP [facility] [address] [place] [address] [facility] [address] [facility] [address] [place] [address] Referral ID Status Reason Start Date Expiration Date V isits Requested Visits Authorized [id number] Pending Review 07/03/2023 07/02/2024 1 1 Question Answer Preferred Location: [facility] 10/10/2023 Ultrasound Complete US (14-17.6 weeks GA) US PROC NONE MFM Issue Advanced Maternal Age *MUST request Genetic Counseling MFM MD Consultation (unrelated to Ultrasound findings): No Inflammatory Bowel Disease Clinic: Joint MFM and GI Consultation: No Chronic Kidney Disease: Joint MFM and Nephrology Consultation No Genetic Counseling Consultation: Yes fax [facility], Comments There is no height or weight [...] st Contact Info) Description 07/03/2023 Transcribe Orders [facility] [address] [place] [address] Ilene Kaplan APRN CNP [facility] [address] [place] [address] related condition, antepartum (Primary Dx) Social History [...] as of this encounter Plan of Treatment Scheduled Referrals Name Type Priority Associated Diagnoses Orde r Schedule Mat Med Ctr Referral - Referral Routine: Next available opening related condition, antepartum Expected: 07/03/2023 (Approximate), Expires: 12/30/2023 [facility] Genetic Counseling Referral Routine: Next available opening related condition, antepartum Expected: 07/03/2023 (Approximate), Expires: 07/02/2024 documented as of this encounter Results * [facility] US Comprehensive Single (07/24/2023 2:13 PM CDT) [...] ? Study Date: ??07/24/2023 1:32pm Pat. NO: ??[id number] ?Referring ??MD: ILENE KAPLAN Site: ??[facility] ? Music Education Director: Sujatha Joyce RDMS : ??1985 ?Age: [...] 3 lb 10 ?oz EFW by ?Hadlock (ECK-SG-[id number]-FL) Head / Face / Neck Biometry: 7Th Grade Teacher ? 3.6 ? mm CM ?5.7 [...] cava. Inferior vena cava. 3-vessel ? view. 7-xlybft-bprwsae view. Cardiac position. Cardiac size. Cardiac rhythm. [...] extension educator and has met with a financial associate. No one has started her on insulin [...] medical record, and communicating with other health rn primary care and/or care coordination. Please see note for details. Procedure Note Cristiane Patel MD - 07/24/2023 Comprehensive ----- Pat. Name: SHEBA WILDER Study Date: 07/24/2023 1:32pm Pat. NO: [id number] Referring MD: ILENE KAPLAN Site: [facility] Music Education Director: Sujatha Joyce RDMS : 1985 Age: [...] (lb,oz) 3 lb 10 oz EFW by Josh (VMD-OG-ZP-ND) Head / Face / Neck Biometry: 7Th Grade Teacher 3.6 mm CM 5.7 mm Nasal [...] Superior venacava. Inferior vena cava. 3-vessel view. 9-xkywes-uztnwry view.Cardiac position. Cardiac size. Cardiac rhythm. Right [...] free DNA drawn. They will contact Palak Roberto those results are available. We reviewed that [...] a diabetic educatorand has met with a financial associate. No one has started her on insulin [...] electronic medical record, andcommunicating with other health rn primary care and/or carecoordination. Please see note for [...] The BPP was 09/30. Ilene Kaplan APRN HOME SERVICE CONSULTANT IMG MFM US ORDERABLES documented in this encounter Visit Diagnoses Diagnosis related condition, antepartum- Primary related condition, antepartum documented in this encounter Care Teams Quebracho Tanner Relationship Specialty Start Date End Date Tre Ba MD [facility] TERRY PONCE [address] [address] PCP - General job cost estimator 01/15/22 09/19/23 documented as of this encounter
--- OUTSIDE RECORDS SUMMARY | 2023-09-23 00:22 | XMS_ITS | Encounter Summary ---
Author Organization [place] Address [facility] [place] [address] Care Team Providers Care Cisco Certified Internetwork Expert Name Role Phone Tre Ba MD Primary Care Provide r Reason for Visit * Reason Comments Ultrasound L2-AMA Encounter Details Date Type Department Care Team (Late st Contact Info) Description 07/08/2023 PRE VISIT [facility] [place] [address] [place] [address] Melissa Aguiar, JD Ultrasound (L2-AMA) Social History Tobacco Use Types [...] on filedocumented in this encounter Care Teams [employer] Certified Internetwork Expert Relationship Specialty Start Date End Date Tre Ba MD [facility] TERRY PONCE [address] [address] PCP - General shotblast operator 01/15/22 09/19/23 documented as of this encounter
--- OUTSIDE RECORDS SUMMARY | 2023-09-23 00:22 | XMS_ITS | Data Portability ---
Author Organization RENO Funez SENIOR C DEVELOPER, [id number] Address [address] [facility] [address] [place] [address] Assessment Encounter Date Assessment Date Assessment LastModified [...] quantitativ e, serum or plasma 2022 023 [facility], [address] [place] [address], [address], [place], [address], 09:46:18 culture, urine [address], [address], [place], [address], 4 07:02:01 Referral None recorded. Procedures None recorded. Surgeries None recorded. Imaging US, obstetric, transvagina l 2022 023 [email or web address] [id number] [facility], [address] [place] [address], [address], [place], [address], 3 13:56:56 US, obstetric, transvagina l 2022 023 [email or web address] [id number] [facility], [address] [place] [address], [address], [place], [address], 3 11:33:13 US, obstetric, transvagina l 2022 023 [email or web address] [id number] [facility], [address] [place] [address], [address], [place], [address], 3 15:37:35 US, obstetric, transvagina l 2023 024 [email or web address] [email or web address] [facility], [address] [place] [address], [address] [place] [address], [address], 4 14:40:10 Medication Orders None recorded. Patient TargetsNo targets recorded. Patient Instructions Encounter Date Encounter Id Patient Instructions Last Modified By Organization Details Last Modified Time 07/09/2022 [id number] venous blood draw* Not available 07/09/2022 16:10:57 03/03/2023 [id number] - New OB packet reviewed. Handouts provided. - She is considering transferring care to [place] as she lives an hour away from [...] 92 mIU/m L <[address] [facility] [address] [facility] [address], [place], [address], 07/10/2022 09:46:17 03/03/19 24 03/03/2023 URINE CULTU RE urine culture SEE RESULT S BELOW Not Available [facility] [address], [place], [address], 03/05/2023 07:02:01 06/25/19 23 06/24/2022 US, obste tric, trans vagin al No observ ation record ed. [email or web address] [address], [place], [address], 06/24/2022 14:04:18 07/10/19 23 07/09/2022 US, obste tric, trans vagin al No observ ation record ed. [address], [place], [address], 07/09/2022 15:43:58 03/03/19 24 03/03/2023 US, obste tric, trans vagin al No observ ation record ed. [email or web address] [address], [place], [address], 03/03/2023 14:42:22 Result Notes None recorded. Problems No Known Problems Procedures Surgical History Date Name Laterality Status Provider Name and Address Organization Details Recorded Time reversal of female sterilization completed Ivis Gutierrez null, [place] - [facility] [employer] [employer] 10/14/2021 12:58:07 Tubal Ligation completed Ivis Gutierrez null, [place] - [employer] [employer] 10/14/2021 12:58:13 TUBOTUBAL ANASTOMOSIS (SURG) completed Ivette Mitchell(TERM) null, [place] - [employer] 11/11/2021 11:48:16 Imaging Results Imaging Date Name Status LastModified by Organization Details LastModified Time 06/24/2022 US, obstetric, transvaginal completed [email or web address] [address], [place], [address], 06/24/2022 14:04:18 07/09/2022 US, obstetric, transvaginal completed [email or web address] [address], [place], [address], 07/09/2022 15:43:58 03/03/2023 US, obstetric, transvaginal completed [email or web address] [address], [place], [address], 03/03/2023 14:42:22 Procedure Notes None recorded. Medical [...] Updated DateTime 06/24/2022 154.94 cm 32.3 kg/m2 81892.01 g 124 mm[Hg] 68 mm[Hg] Tammie Funez SENIOR C DEVELOPER 12:10:56 Date Recorded Body height Body mass index (BMI) Body weight Systolic blood pressure Diastolic blood pressure Provider Name and Address Organization Details Last Updated DateTime 07/09/2022 154.94 cm 32.9 kg/m2 68153.07 g 114 mm[Hg] 66 mm[Hg] Dick Lacy [place] - [employer]IOR C DEVEL[employer] 3 15:44:05 Date Recorded Body height Body mass index (BMI) Body weight Systolic blood pressure Diastolic blood pressure Provider Name and Address Organization Details Last Updated DateTime 03/03/2023 154.94 cm 33.2 kg/m2 43256.82 g 126 mm[Hg] 70 mm[Hg] Katina Branham [facility] SENIOR C DEVELOPER 4 14:31:00 Social History Question Answer Notes LastModified by Organizat ion Details LastModified Time Tobacco Smoking Status Never Smoker Ivis RENO Barber - [facility] [employer]EL[employer] 06/07/2020 17:13:51 Do You Have An Advance [...] trivalent, preservative 12/08/2012 completed RENO Reddy [facility] SENIOR C DEVELOPER 10/14/2021 12:57:47 MMR 01/13/2013 completed Ivis faulkner [place] [facility] SENIOR C DEVELOPER 10/14/2021 12:57:47 Tdap 12/08/2012 completed RENO Reddy [employer] SENIOR C DEVELOPER 10/14/2021 12:57:47 Influenza, split virus, trivalent, PF 04/13/2012 completed Ivis RENO Barber - SENIOR C DEVELOPER 10/14/2021 12:57:47 Past Encounters Encounter ID Performer Location Encounter Start Date Encounter Closed Date Diagnosis/Indication Diagnosis SNOMED-CT Code [id number] Tre Ba MD [id number] [place] [id number] 06/07/2020 16:46:29 06/07/2020 17:50:47 Reversal of sterilization [id number] MD RADHA Hanna_CAITY [address],[facility] [address] [place] [id number] 08/05/2021 19:21:07 08/08/2021 12:06:56 Reversal of sterilization [id number] Tre Ba MD [id number] [address] [employer],[address] [place] [id number] 10/14/2021 12:38:21 10/14/2021 13:38:29 Postoperative visit [id number] Tre Ba MD [id number] [facility] [employer],[facility] [address] [place] [id number] 01/09/2022 11:28:39 01/09/2022 11:47:14 Finding of viability of [id number] EMMA LAGUNAS_CAITY [address] [employer],[address] [place] [id number] 01/09/2022 11:29:08 01/09/2022 18:09:47 Finding of viability of [id number] Uncertain viability of 587284370 [id number] EMMA LAGUNAS_METArt [address]NTIVEROS[address] [employer],[address] [place] [id number] 01/13/2022 12:07:11 01/14/2022 09:21:49 [id number] DO FRANCES Oropeza003_METR [address] [place] [id number] 06/24/2022 11:40:01 06/24/2022 12:04:55 Finding of viability of [id number] JAKAI STRAUSSEMMA Elaine UN537_KQOK [address] [address] 06/24/2022 11:43:10 06/24/2022 13:48:42 Gestation period, 7 weeks 98790145 Multigravi da of advanced maternal age 476671534 Past pregn barney history of miscarriage 507345796 [id number] JERMAINE QUIÑONEZ YM030_VUGK [address] [address] 07/09/2022 15:05:38 07/10/2022 11:33:13 Missed miscarriage 07155350 [id number] Adri Niño DO TZ370_GWHO [address] [employer],[address] [place] [id number] 07/09/2022 14:59:44 07/09/2022 15:27:48 Threatened miscarriage in first trimester [id number] EMMA LAGUNAS UV832_XJVM [address] [place] [id number] 03/03/2023 14:15:13 03/03/2023 15:28:10 test positive [id number] Gestation period, 8 weeks 26530992 Past pregn barney history of gestational diabetes mellitus 999796539 Past pregn barney history of delivery of macrosomal infant [id number] Multigravi da of advanced maternal age 417710185 Reversal o f sterilization 585706739 [id number] Salvador Costa MD [id number]_RWTH [address] [place] [id number] 03/03/2023 13:46:50 03/03/2023 14:13:48 Finding of viability of 093430424 Health Concerns Section Related Observation LastModified by Organization Detai ls LastModified Time None Recorded Concern Status LastModified by Organization Details LastModified Time None Recorded Advance Directives Directive N: Payers Encounter Date Sequence Insurance Name Policy Number Policy [place] Covered Member ID [place] Member ID Guarantor Name 06/24/2022 1 [employer] - DOS PRIOR TO 2022 (MEDICAID REPLACEMENT - HMO) [id number] 1 Sheba Meño [id number] Sheba Meño 07/09/2022 1 [employer] - DOS PRIOR TO 2022 (MEDICAID REPLACEMENT - HMO) [id number] 1 Sheba Meño [id number] Sheba Meño 07/09/2022 1 [employer] - DOS PRIOR TO 2022 (MEDICAID REPLACEMENT - HMO) [id number] 1 Sheba Meño [id number] Sheba Meño 03/03/2023 SLIDING FEE SCHEDULE - [...] 8 weeks 1 day. JAK KAUFMAN, EMMA [address] [facility],[address], [place], [address], [facility] - [employer] SENIOR C DEVELOPER 06/24/2022 13:48:00 07/09/2022 text/html HPI Notes: The patient presents today as follow up from [facility]. She is a . She had a [...] small clots and having cramping. SILVINO TOSCANO, [facility] [address] [facility],[address], [place], [address], [place] - [employer] SENIOR C DEVELOPER 07/09/2022 16:17:52 03/03/2023 text/html HPI Notes: This [...] The patient would like to deliver at [facility]. Genetic testing was discussed today and the [...] [ ] problems/Antepartu m testing: EMMA LAGUNAS [address] [facility],[address], [place], [address], [place] - [employer] SENIOR C DEVELOPER 03/03/2023 15:27:22 OBGyn Episode No OBEpisode recorded.
--- OUTSIDE RECORDS SUMMARY | 2023-09-23 00:22 | XMS_ITS | Encounter Summary ---
Author Organization [place] Address Count includes the [facility] [place] [address] Care Team Providers Care Patient Observer Name Role Phone Tre Ba MD Primary Care Provide r Reason for Visit * Reason Comments Genetic Counseling * Consultation (Routine: Next available opening) - Pending Review Specialty Diagnoses / Procedures Referred By Contac t Referred To Contact Diagnoses related condition, antepartum Ilene Kaplan APRN [facility] [address] [place] [address] Referral ID Status Reason Start Date Expiration Date V isits Requested Visits Authorized [id number] Pending Review 07/03/2023 07/02/2024 1 1 Encounter Details Date Type Department Care Team (Late st Contact Info) Description 07/24/2023 12:45 PM CDT Office Visit [facility] [place] [address] [facility] [address] [place] [address] Cristiane Patel MD [address] [place] [phone] Laura Abdi GC [address] [place] [id number] Multigravida of advanced maternal age in third [...] this encounter Progress Notes * Laura Abdi, - 07/24/2023 12:45 PM CDT [facility] Genetic Counseling Consult Patient: Sheba Wilder Date of : 1985 Date of Service: 07/24/23 Sheba was seen at the [facility] for genetic consultation. Theindication for genetic counseling is advanced maternal age. The patient was unaccompanied to this visit. The session was conducted in Lao. IMPRESSION/ PLAN 1. Sheba has not had genetic screening in this but elected to have screening today. 2. During today's [facility] visit, Sheba had a blood draw for expanded non-invasive testing (also called NIPT, NIPS, or cell-free DNA) through [facility] ([employer]). The expanded NIPT screens for trisomy 21, [...] an emaildiscussing the results be sent to [email or web address]. Sheba was informed that results, including sex, will be available in Plan Me Up. 3. Sheba had a level II comprehensive anatomy ultrasound today. Please see the ultrasound report for further details. 4. [facility] recommends weekly BPPs starting next week. [...] in these pregnancies, please refer to the [facility] note for more details. FAMILY HISTORY A three-generation family history was obtained today and is scanned under the Media tab in [employer] The family history was reported by [...] of recurrent loss shecan reach out to [facility] or her OB. Sheba has a [...] wants more information they can contact the [facility] Cancer Risk Management Program ( [...] of other microdeletion syndromes (expanded NIPT through [facility]). At this time, it is not possible [...] pleasure to be involved with Sheba???s care. Yxvh-wi-aars time of the meeting was 30 minutes. Laura Abdi MS, [facility] Maternal Medicine Office: [phone] [facility]: [phone] [facility] MFM documented in this encounter Plan of Treatment Not on file documented as of this encounter Results * [facility] Non-Invasive Screening???Prequel (07/24/2023 2:49 PM CDT) See Scanned Result [facility] NON-INVASIVE SCREENING PREQUEL-Scann ed 08/02/2023 7:16 PM CDT [facility] Blood STRUCTURE OF RIGHT UPPER LIMB / Unknown Venipuncture / Unknown 07/24/2023 2:49 PM CDT 07/24/2023 2:49 PM CDT Laura Abdi GC LAB - BLOOD ORDERABL ES [facility] [address] [place] [address], [facility] [phone] documented in this encounter Visit Diagnoses Diagnosis Multigravida of advanced maternal age in third trimester- Primary related condition, antepartum documented in this encounter Care Teams Patient Observer Relationship Specialty Start Date End Date Tre Ba MD Michael [address] [address] PCP - General mica machine operator 01/15/22 09/19/23 documented as of this encounter
--- OUTSIDE RECORDS SUMMARY | 2023-09-23 00:22 | XMS_ITS | Encounter Summary ---
Author Organization [place] Address [facility]0 [facility] [place] [address] Care Team Providers Care Heavy Machinery Operator Name Role Phone Tre Ba MD Primary Care Provide r Reason for Referral * Diagnostic Imaging Ultrasound (Routine) - Pending Review Specialty Diagnoses / Procedures Referred By Contac t Referred To Contact Radiology. Diagnoses Diabetes mellitus, type 2 (H) Polyhydramnios affecting Procedures [facility] US Comprehensive Single F/U Cristiane Patel MD [address] [place] [address] Referral ID Status Reason Start Date Expiration Date V isits Requested Visits Authorized [id number] Pending Review 07/24/2023 07/23/2024 1 1 * Diagnostic Imaging Ultrasound (Routine) - Pending Review Specialty Diagnoses / Procedures Referred By Contac t Referred To Contact Radiology. Diagnoses Diabetes mellitus, type 2 (H) Polyhydramnios affecting Procedures [facility] BP Cristiane Lowry MD [address] [place] [address] Referral ID Status Reason Start Date Expiration Date V isits Requested Visits Authorized [id number] Pending Review 07/24/2023 07/23/2024 1 1 * Diagnostic Imaging Ultrasound (Routine) - Pending Review Specialty Diagnoses / Procedures Referred By Contac t Referred To Contact Radiology. Diagnoses Diabetes mellitus, type 2 (H) Polyhydramnios affecting Procedures [facility] BPP Single Cristiane Patel MD [address] [place] [address] Referral ID Status Reason Start Date Expiration Date V isits Requested Visits Authorized [id number] Pending Review 07/24/2023 07/23/2024 1 1 Reason for Visit * Reason Comments Ultrasound L2- AMA, T2DM Encounter Details Date Type Department Care Team (Late st Contact Info) Description 07/24/2023 2:00 PM CDT Office Visit [facility] [place] [address] [place] [address] Cristiane Patel MD [address] [place] [address] with type 2 diabetes mellitus in [...] in the Maternal[facility] Medicine Center at the [facility] today. For a detailed report of the ultrasound examination, please see the ultrasound report which can be found under the imaging tab. If you have questions regarding today's evaluation or if we can be of further service, please contact the Maternal- Medicine Center. Cristiane Patel MD Facsimile Operator, CULTURAL CENTRE MANAGER Maternal- Medicine [phone] (Pager) documented in this encounter Nursing Notes * Katina Espinoza RN - 07/24/2023 2:00 PM CDT Patient reports positive movement, no pain, no contractions, leaking of fluid, or bleeding. Reports blood sugar values elevated- fasting this morning was 175 reports after meals often 220. Has appointment in [place] next week to discuss starting insulin. Patient denies headache, visual changes, nausea/vomiting, epigastric pain related to preeclampsia. SBAR given to TREVOR GRESHAM, see their note in Epic. documented in this encounter Plan of Treatment Not on file documented as of this encounter Results * [facility] US Comprehensive Single F/U (08/21/2023 12:39 [...] ? Study Date: ??08/21/2023 11:58am Pat. NO: ??[id number] ?Referring ??MD: HOMAR MEDRANO Site: ? Life Underwriter: Yamila Dutton RDMS : ??1985 ?Age: ?? [...] lb 4 ?oz EFW by ? Hadlock ([id number]) Head / Face / Neck Biometry: Welder Gun ?4.4 ? mm ANATOMY ----- The following [...] Heart / Thorax ?RVOT view. LVOT view. 2-wnazfc-smmfvtd view. Spine ?Cervical spine. sex: male. MATERNAL STRUCTURES ----- Cervix ?Suboptimal Right Ovary ?Not examined Left Ovary ?Not examined RECOMMENDATION ----- We discussed the findings on today's ultrasound with the patient. The patient has the following ultrasounds already scheduled: 1) BPP once weekly at your clinic. 2) BPP once weekly at [facility]. 3) echo on 08/28/23 with Pediatric Cardiology. 4) growth assessment at [facility] in 4 weeks. Given the polyhydramnios [...] WILDER Study Date: 08/21/2023 11:58am Pat. NO: [id number] Referring MD: HOMAR MEDRANO Site: Life Underwriter: Yamila Dutton RDMS : 1985 Age: 37 [...] EFW (lb,oz) 6 lb 4oz EFW by Hadlock([id number]-FL) Head / Face / Neck Biometry: Welder Gun 4.4mm ANATOMY ----- The following structures appear normal: Head / Neck Cranium. Head size. Head shape.Lateral ventricles. Midline falx. Cavum septi pellucidi. Cerebellum.Cisterna magna. Thalami. Face Profile. Heart / Thorax 4-chamber view. Diaphragm. Abdomen Stomach. Kidneys. Bladder. Spine Thoracic spine. Lumbar spine.Sacral spine. The following structures were documented previously: Face Lips. Nose. Heart / Thorax RVOT view. LVOT view. 4-xnzxko-wemzcgywjqy. Spine Cervical spine. sex: male. MATERNAL STRUCTURES ----- Cervix Suboptimal Right Ovary Not examined Left Ovary Not examined RECOMMENDATION ----- We discussed the findings on today's ultrasound with the patient. The patient has the following ultrasounds already scheduled: 1) BPP once weekly at your clinic. 2) BPP once weekly at [facility]. 3) echo on 08/28/23 with Pediatric Cardiology. 4) growth assessment at [facility] in 4 weeks. Given the polyhydramnios [...] BPP is reassuring. Cristiane Patel MD [facility] US ORDERABLE S * [facility] BPP Single (08/14/2023 3:54 PM CDT) Anatomical Region Laterality Modality Ultrasound 08/14/2023 3:35 PM CDT Impressions 08/14/2023 4:06 PM CDT IMPRESSION ----- 1) Mild polyhydramnios. 2) BPP is reassuring. Narrative 08/14/2023 4:06 PM CDT ?BPP ----- Pat. Name: CASTRO WILDERL ? Study Date: ??08/14/2023 3:35pm Pat. NO: ??[id number] ?Referring ??MD: HOMAR MEDRANO Site: ? Life Underwriter: Gemma Pinzon RDMS : ??1985 ?Age: ?? [...] has not contacted your office or her policewoman. Currently we are not reviewing her blood [...] Mitch Jernigan MD - 08/14/2023 BPP ----- Mita. Name: JACK WILDER Study Date: 08/14/2023 3:35pm Pat. NO: [id number] Referring MD: HOMAR MEDRANO Site: Life Underwriter: Gemma Hilliardchristy [facility] : 1985 Age: 37 ----- INDICATION ----- [...] and has notcontacted your office or her policewoman. Currently we are not reviewing her blood [...] 2) BPP is reassuring. Cristiane Patel MD [facility] BPP Single (07/30/2023 3:46 PM CDT) [...] ? Study Date: ??07/30/2023 3:27pm Pat. NO: ??[id number] ?Referring ??MD: HOMAR MEDRANO Site: ??[place] ? Life Underwriter: Lashonda Barlow RDMS : ??1985 ?Age: ?? [...] with MFM and once with PCP in [place]. Recommend delivery for GDM A2 and pregestational: ? Well controlled: [id number]-72l5r ? Poorly controlled: 23o3g-98d6w ? Failed in-hospital attempt at control: 47o4j-49y1q Thank you for the opportunity to participate in the care of this patient. If you have questions regarding today's evaluation or if we can be of further service, please contact the Maternal- Medicine Center. anomalies may be present but not detected Procedure Note Bassem Pathak MD - 07/30/2023 BPP ----- Pat. Name: JACK WILDER Study Date: 07/30/2023 3:27pm Pat. NO: [id number] Referring MD: HOMAR MEDRANO Site: [facility] Life Underwriter: Lashonda Barlow RDMS : 1985 Age: 37 [...] with twice weekly BPP, once here with [facility] and once withPCP in [place]. Recommend delivery for GDM A2 and pregestational: ? Well controlled: 04y2q-77j8v ? Poorly controlled: 69q3v-46v7z ? Failed in-hospital attempt at control: 13a2n-70r1y Thank you for the opportunity to participate [...] fluid volume appears normal. Cristiane Patel MD [facility] US ORDERABLE S documented in this encounter Visit Diagnoses Diagnosis with type 2 diabetes mellitus in third trimester- Primary Polyhydramnios affecting Polyhydramnios affecting Polyhydramnios affecting Polyhydramnios affecting documented in this encounter Care Teams Heavy Machinery Operator Relationship Specialty Start Date End Date Tre Ba MD [address] [address] PCP - General back padder 01/15/22 09/19/23 documented as of this encounter
--- OUTSIDE RECORDS SUMMARY | 2023-09-23 00:22 | XMS_ITS | Encounter Summary ---
Author Organization [place] Address [address] [place] [address]. [place] [address] Care Team Providers Care Child Development Teacher Name Role Phone Tre Ba MD [...] on filedocumented in this encounter Care Teams Child Development Teacher Relationship Specialty Start Date End Date [facility] [address] [address] PCP - General performance improvement specialist 01/15/22 09/19/23 documented as of this encounter
--- OUTSIDE RECORDS SUMMARY | 2023-09-23 00:22 | XMS_ITS | Encounter Summary ---
Author Organization [place] Address [facility] [place] [address] Care Team Providers Care Consular Officer Name Role Phone Tre aB MD Primary Care Provide r Reason for Referral * Diagnostic Imaging Ultrasound (Routine) - Pending Review Specialty Diagnoses / Procedures Referred By Contac t Referred To Contact Radiology. Diagnoses related condition, antepartum Procedures [facility] US Comprehensive Single Ilene Medrano APRN [facility] [address] [place] [address] Referral ID Status Reason Start Date Expiration Date V isits Requested Visits Authorized [id number] Pending Review 07/03/2023 07/02/2024 1 1 Reason for Visit * Diagnostic Imaging Ultrasound (Routine) - Pending Review Specialty Diagnoses / Procedures Referred By Contac t Referred To Contact Radiology. Diagnoses related condition, antepartum Procedures [facility] US Comprehensive Single Ilene Medrano APRN [facility] [address] [place] [address] Referral ID Status Reason Start Date Expiration Date V isits Requested Visits Authorized [id number] Pending Review 07/03/2023 07/02/2024 1 1 Encounter Details Date Type Department Care Team (Latest Contact Info) Description 07/24/2023 12:50 PM CDT - 07/24/2023 11:59 PM CDT Hospital Encounter [facility] [place] [address] [facility] [address] [place] [address] Cristiane Patel MD [address] [address] [place] [address] related condition, antepartum Discharge Disposition: Home or [...] Procedure Name Priority Date/Time Associated Diagnosis Comments [facility] SINGLE Routine 07/24/2023 2:13 PM CDT related condition, antepartum documented in this encounter Results * [facility] Comprehensive Single (07/24/2023 2:13 PM CDT) Anatomical [...] 4:30 PM CDT ?Comprehensive ----- Pat. Name: GRACE SHEBA ? Study Date: ??07/24/2023 1:32pm Pat. NO: ??[id number] ?Referring ??MD: ILENE MEDRANO Site: ??[place] ? Coil Winding Machines Set Up Mechanic: Sujatha Joyce RDMS : ??1985 ?Age: ?? [...] 3 lb 10 ?oz EFW by ?Hadlock ([id number]) Head / Face / Neck Biometry: [employer] Buffer ? 3.6 ? mm CM ?5.7 ? [...] cava. Inferior vena cava. 3-vessel ? view. 1-soumja-enifbcc view. Cardiac position. Cardiac size. Cardiac rhythm. [...] between 220-240. She is following a community health educator and has met with a yoker. No one has started her on insulin [...] medical record, and communicating with other health transitional care manager and/or care coordination. Please see note for details. Procedure Note Cristiane Patel MD - 07/24/2023 Comprehensive ----- Pat. Name: SHEBA WILDER Study Date: 07/24/2023 1:32pm Pat. NO: [id number] Referring MD: ILENE MEDRANO Site: [facility] Coil Winding Machines Set Up Mechanic: Sujatha Joyce RDMS : 1985 Age: 37 [...] 3 lb 10 oz EFW by Hadlock ([id number]) Head / Face / Neck Biometry: [employer] Buffer 3.6 mm CM 5.7 mm Nasal bone [...] Superior venacava. Inferior vena cava. 3-vessel view. 1-aglwqh-xpdpikw view.Cardiac position. Cardiac size. Cardiac rhythm. Right [...] a diabetic educatorand has met with a yoker. No one has started her on insulin [...] electronic medical record, andcommunicating with other health transitional care manager and/or carecoordination. Please see note for details. [...] The BPP was 8/8. Ilene Medrano APRN [facility] documented in this encounter Visit Diagnoses Diagnosis related condition, antepartum documented in this encounter Care Teams Consular Officer Relationship Specialty Start Date End Date [facility] [address] [address] PCP - General cigar inspector 01/15/22 09/19/23 documented as of this encounter
--- OUTSIDE RECORDS SUMMARY | 2023-09-23 00:22 | XMS_ITS | Encounter Summary ---
Author Organization [place] Address [address] [facility] [place] [address] Care Team Providers Care Event Specialist Product Demonstrator Name Role Phone Tre Ba MD Primary Care Provide r Encounter Details Date Type Department Care Team (Late st Contact Info) Description 07/03/2023 Medical Correspondence [facility] Info Mgmt [facility] [address] [place] [address] Scan, Non-Provider Social History Tobacco [...] on filedocumented in this encounter Care Teams Event Specialist Product Demonstrator Relationship Specialty Start Date End Date Tre Ba MD [address] [place] [address] PCP - General manager of drilling 01/15/22 09/19/23 documented as of this encounter
--- OUTSIDE RECORDS SUMMARY | 2023-09-23 00:22 | XMS_ITS | Encounter Summary ---
Author Organization [place] Address [address] [place] [address] Care Team Providers Care Instructor Pilot Name Role Phone Tre Ba MD Primary Care Provide r Encounter Details Date Type Department Care Team (Late st Contact Info) Description 07/24/2023 2:40 PM CDT [facility] [address] [place] [address] Cristiane Patel MD [address] [place] [address] Multigravida of advanced maternal age [...] (07/24/2023 2:49 PM CDT) See Scanned Result [employer] NON-INVASIVE SCREENING PREQUEL-Scann ed 08/02/2023 7:16 PM CDT [email or web address] Blood STRUCTURE OF RIGHT UPPER LIMB / Unknown Venipuncture / Unknown 07/24/2023 2:49 PM CDT 07/24/2023 2:49 PM CDT Laura Abdi [facility] - BLOOD ORDERABL ES [email or web address] [address] [phone] documented in this encounter Visit Diagnoses Diagnosis Multigravida of advanced maternal age in third trimester documented in this encounter Care Teams Instructor Pilot Relationship Specialty Start Date End Date Tre Ba MD [address] [address] PCP - General junior marketing associate 01/15/22 09/19/23 documented as of this encounter
== END 2023-09-19 22:51 | disposition home or self-care (01) ==
LOC: AMB 09-23 00:16
PROVIDERS: Visit Provider Family Medicine
DX: O14.93 Unspecified pre-eclampsia, third trimester (principal); Z3A.37 37 weeks gestation of pregnancy
CPT/HCPCS: A0425; A0434

== ENCOUNTER 2023-10-09 15:43 | Outpatient (CLI) | payer MEDICAID, SELFPAY ==
--- OUTSIDE RECORDS SUMMARY | 2023-10-09 15:46 | XMS_ITS | Clinical Summary ---
Author Organization [place] Address [address] [place] [address]. [place] [address] Care Team Providers Care Nail Assembly Machine Operator Name Role Phone Bassem Pathak MD Unavailable [phone] No Ref-Primary, Physician Primary Care Provider Allergies [...] for mild pain 50 tablet 01/20/2022 Active metFORMIN (GLUCOPHAGE XR) 500 MG 24 hr tabletIndications: (spontaneous vaginal delivery) Take 1 tablet (500 mg) by mouth daily (with dinner) 60 tablet 2 09/23/2023 Active acetaminophen (TYLENOL) 325 MG tabletIndications: (spontaneous vaginal delivery) Take 2 tablets (650 mg) by mouth every 6 hours as needed for mild pain Start after Delivery. 100 tablet 09/23/2023 Active ibuprofen (ADVIL/MOTRIN) 600 MG tabletIndications: (spontaneous vaginal delivery) Take 1 tablet (600 mg) by mouth every 6 hours as needed for moderate pain Start after delivery 60 tablet 09/23/2023 Active senna-docusate (SENOKOT-S/PERICOL EMMA) 8.6-50 MG tabletIndications: (spontaneous vaginal delivery) Take 1 tablet by mouth daily Start after delivery. 100 tablet 09/23/2023 Active NIFEdipine ER (ADALAT CC) 30 MG 24 hr tabletIndications: (spontaneous vaginal delivery),Severe pre-eclampsia, antepartum Take 2 tablets (60 mg) by mouth daily 60 tablet 1 09/23/2023 Active ferrous sulfate (FEROSUL) 325 (65 Fe) MG tabletIndications: (spontaneous vaginal delivery) Take 1 tablet (325 mg) by mouth daily (with breakfast) 60 tablet 1 09/23/2023 Active Active Problems Problem Noted Date Diagnosed Date Preeclampsia, severe 09/19/2023 Encounters Date Type Department Care Team Description 09/28/2023 MyC Medical Advice [facility] [place] [address] [address] Sumi Peraza RN 09/28/2023 Telephone [facility] [address] [place] [address] Sumi Peraza RN Hypertension 09/24/2023 Medical Correspondence [facility] Info Mgmt Srv[facility] [address] [place] [phone] Scan, Non-Provider [facility] 09/20/2023 5:51 AM CDT Anesthesia Event [facility] [address] [place] [phone] Vickie Agarwal MD Dahmen, Mariah, MD 09/19/2023 11:56 PM CDT - 09/23/2023 8:00 PM CDT Hospital Encounter [facility] [address] [place] [phone] Najma Bell MD Terrell, Carrie Ann, MD (spontaneous vaginal delivery) (Primary Dx); Severe pre-eclampsia, antepartum Discharge Disposition: Home-Health Care Svc 09/16/2023 Telephone [facility] [address] [place] [phone] Cheri Peters LPN 09/15/2023 2:00 PM CDT Office Visit [facility] [place] [address] [place] [phone] Mitch Jernigan MD Pre-existing type 2 diabetes mellitus during in third trimester (Primary Dx); Polyhydramnios affecting 09/15/2023 1:30 PM CDT - 09/15/2023 11:59 PM CDT Hospital Encounter [facility] [place] [address] [place] [phone] Mitch Jernigan MD Pre-existing type 2 diabetes mellitus during in third trimester Discharge Disposition: Home or Self Care 09/15/2023 Travel 09/08/2023 12:15 PM CDT Office Visit [facility] [place] [address] [place] [phone] Bassem Pathak MD Rauk, Phillip Neil, MD Pre-existing type 2 diabetes mellitus during in third trimester (Primary Dx) 09/08/2023 11:45 AM CDT - 09/08/2023 11:59 PM CDT Hospital Encounter [facility] [place] [address] [place] [phone] Bassem Pathak MD Rauk, Phillip Neil, MD Pre-existing type 2 diabetes mellitus during in third trimester Discharge Disposition: Home or Self Care 09/08/2023 Travel 09/02/2023 12:15 PM CDT Office Visit [facility] [place] [address] [place] [phone] Luz Elena Betts MD Pre-existing type 2 diabetes mellitus during in third trimester (Primary Dx) 09/02/2023 11:45 AM CDT - 09/02/2023 11:59 PM CDT Hospital Encounter [facility] [place] [address] [place] [phone] Luz Elena Betts MD Pre-existing type 2 diabetes mellitus during in third trimester Discharge Disposition: Home or Self Care 09/02/2023 Travel 08/26/2023 Telephone [facility] [address] [place] [phone] Cheri Peters LPN 08/25/2023 12:15 PM CDT Office Visit [facility] Maternal Medicine [facility] [address] [place] [address] Bassem Pathak MD Yamamura, Yasuko, MD Pre-existing type 2 diabetes mellitus during in third trimester (Primary Dx); Polyhydramnios in third trimester complication, single or unspecified fetus 08/25/2023 11:45 AM CDT - 08/25/2023 11:59 PM CDT Hospital Encounter [facility] Maternal Medicine [facility] [address] [place] [phone] Bassem Pathak MD Yamamura, Yasuko, MD Pre-existing type 2 diabetes mellitus during in third trimester Discharge Disposition: Home or Self Care 08/25/2023 Travel 08/21/2023 12:15 PM CDT Office Visit [facility] [address] [place] [address] Cristiane Patel MD Rauk, Phillip Neil, MD Pre-existing type 2 diabetes mellitus during in third trimester (Primary Dx); Polyhydramnios affecting 08/21/2023 11:45 AM CDT - 08/21/2023 11:59 PM CDT Hospital Encounter [facility] Maternal Medicine [facility] [address] [place] [address] Cristiane Patel MD Rauk, Phillip Neil, MD Polyhydramnios affecting Discharge Disposition: Home or Self Care 08/21/2023 Travel 08/14/2023 4:00 PM CDT Office Visit [facility] [place] [address] [facility] [address] [place] [phone] Cristiane Patel MD Rauk, Mitch Walker MD Pre-existing type 2 diabetes mellitus during in third trimester (Primary Dx); Polyhydramnios affecting 08/14/2023 3:30 PM CDT - 08/14/2023 11:59 PM CDT Hospital Encounter [facility] Maternal Medicine [facility] [address] [phone] Cristiane Patel MD Rauk, Mitch Walker MD Polyhydramnios affecting Discharge Disposition: Home or Self Care 08/14/2023 Travel 08/03/2023 Telephone [facility] Maternal Medicine [address] [phone] Laura Abdi, GC Results (Low Risk Expanded NIPT) 07/30/2023 4:00 PM CDT Office Visit [facility] [address] [phone] Bassem Pathak MD Pre-existing type 2 diabetes mellitus during in third trimester (Primary Dx) 07/30/2023 3:25 PM CDT - 07/30/2023 11:59 PM CDT Hospital Encounter [facility] Maternal Medicine [address] [phone] Bassem Pathak MD Polyhydramnios affecting Discharge Disposition: Home or Self Care 07/30/2023 Travel 07/29/2023 Telephone [facility] [place] [address] [phone] Carrie Smith, JD Care (/) 07/24/2023 2:40 PM CDT Lab [facility] [address] [place] [phone] Cristiane Patel MD Multigravida of advanced maternal age in third trimester 07/24/2023 2:00 PM CDT Office Visit [facility] [place] [address] [place] [address] Cristiane Patel MD with type 2 diabetes mellitus in third trimester (Primary Dx); Polyhydramnios affecting 07/24/2023 12:50 PM CDT - 07/24/2023 11:59 PM CDT Hospital Encounter [facility] Maternal Medicine [facility] [address] [place] [address] Cristiane Patel MD related condition, antepartum Discharge Disposition: Home or Self Care 07/24/2023 12:45 PM CDT Office Visit [facility] [place] [address] [facility] [address] [place] [phone] Cristiane Patel MD Daykin, Emily C, GC Multigravida of advanced maternal age in third trimester (Primary Dx); related condition, antepartum 07/24/2023 Medical Correspondence [facility] Info Mgmt Sr[facility] [address] [place] [phone] Scan, Non-Provider 07/24/2023 Travel from Last 3 Months Social History Tobacco Use Types Packs/Day Years Used Date Smoking Tobacco: Never Smokeless Tobacco: Never Tobacco Cessation:Counseling Given: Not Answered Alcohol Use Standard Drinks/Week Comments Not Currently 0 (1 standard drink = 0.6 oz pur e alcohol) Walsh Depression Scale Answer Date Recorded Last EPDS Total Score Not on file 09/23/2023 The thought of harming myself has occurred to me . Never 09/23/2023 Adolescent Education Answer Date Record ed Getting School Help Needed Not on file 11/15 Sex and Gender Information Value Date Recorded Sex Assigned at Not on file Gender Identity Not on file Sexual Orientation Not on file Last Filed Vital Signs Vital Sign Reading Time Taken Comments Blood Pressure 130/88 09/23/2023 2:49 PM CDT Pulse 94 09/23/2023 2:49 PM CDT Temperature 37.2 ??C (98.9 ??F) 09/23/2023 2:49 PM CD T Respiratory Rate 19 09/23/2023 2:49 PM CDT Oxygen Saturation 97% 09/22/2023 3:29 PM CDT Inhaled Oxygen Concentration - - Weight 84.7 kg (186 lb 12.8 oz) 09/23/2023 8:16 AM CDT Height 154.9 cm (5' 1) 01/20/2022 4:42 PM TIMBER FRAMER Body Mass Index 35.3 01/20/2022 4:42 PM TIMBER FRAMER Plan of Treatment Health Maintenance Due Date [...] 12/08/2012, 2012 PAP 09/20/2024 09/20/2021, 09/20/2021 GLUCOSE 09/22/2026 09/23/2023, 08/25, 09/22/2023, Additional history exists DTAP/TDAP/TD IMMUNIZATION [...] Associated Diagnosis Comments GLUCOSE BY METER Routine 09/23/2023 2:42 PM CDT TRANSFUSE RED BLOOD CELLS (UNIT) Routine 09/23/2023 12:29 PM CDT PREPARE RED BLOOD CELLS (UNIT) Routine 09/23/2023 8:28 AM CDT HEMOGLOBIN Routine 09/23/2023 6:38 AM CDT GLUCOSE BY METER Routine 09/23/2023 3:21 AM CDT GLUCOSE BY METER Routine 09/22/2023 10:5 0 [...] RANDOM URINE STAT 09/20/2023 12:03 AM CDT [facility] COMPREHENSIVE SINGLE F/U Routine 09/15/2023 2:12 PM CDT Pre-existing type 2 diabetes mellitus during in third trimester [facility] SINGLE Routine 09/08/2023 12:22 PM CDT Pre-existing type 2 diabetes mellitus during in third trimester [facility] SINGLE Routine 09/02/2023 12:22 PM CDT Pre-existing type 2 diabetes mellitus during in third trimester [facility] SINGLE Routine 08/25/2023 12:05 PM CDT Pre-existing type 2 diabetes mellitus during in third trimester [facility] COMPREHENSIVE SINGLE F/U Routine 08/21/2023 12:39 PM CDT Polyhydramnios affecting [facility] BPP SINGLE Routine 08/14/2023 3:54 PM CDT Polyhydramnios affecting [facility] SINGLE Routine 07/30/2023 3:46 PM CDT Polyhydramnios affecting [facility] NON-INVASIVE SCREENING PREQUEL Routine 07/24/2023 2:49 PM CDT Multigravida of advanced maternal age in third trimester [facility] SINGLE Routine 07/24/2023 2:13 PM CDT related condition, antepartum from Last 3 Months Results * Transfuse red blood cells (unit) (09/23/2023 6:29 PM CDT) Only the most recent of2 resultswithin the time period is included. Najma Orellana DO BLOOD TRANSFUSION OR DERABLES * (ABNORMAL) Glucose by meter (09/23/2023 2:42 PM CDT) Only the most recent of28 resultswithin the time period is included. GLUCOSE BY METER POCT 107(H) 70 - 99 mg/dL 09/23/2023 2:50 PM CDT UR LABORATORY POC Comment:Dr/RN Notified Blood, Capillary BLOOD SPECIMEN / Unknown 09/23/2023 2:42 PM CDT 09/23/2023 2:50 PM CDT Najma Bell MD [facility] UR LABORATORY POC [facility] [address] [place] [address], [address] * (ABNORMAL) Hemoglobin (09/23/2023 6:38 AM CDT) Only the most recent of3 resultswithin the time period is included. Hemoglobin 7.1(L) 11.7 - 15.7 g/dL 09/23/2023 7:13 AM CDT UR LABORATORY Blood BLOOD SPECIMEN / Unknown Venipuncture / Unknown 09/23/2023 6:38 AM CDT 09/23/2023 7:09 AM CDT Gemma Snyder MD LAB - BLOOD ORDERABL ES UR LABORATORY [facility] [address] [place] [address], Room [place] [phone] * Creatinine (09/21/2023 7:36 PM CDT) Only [...] LAB - BLOOD ORDERABL ES UR LABORATORY [facility] [address] [facility], [address] [place] [address] * Hepatitis B surface antigen (09/21/2023 5:22 AM CDT) Hepatitis B Surface Antigen Nonreactive Nonreactive 09/22/2023 9:07 AM CDT UU LABORATORY Blood STRUCTURE OF RIGHT UPPER LIMB / Unknown Venipuncture / Unknown 09/21/2023 5:22 AM CDT 09/21/2023 5:34 AM CDT Kayden Lee MD LAB - BLOOD ORDER PARKER UU LABORATORY [facility] [place] [facility] [address] [facility], [address] [place] [address] * AST (09/21/2023 5:22 AM CDT) Only the most recent of2 resultswithin the time period is included. AST 26 0 - 45 U/L 09/21/2023 6:0 2 AM CDT UR LABORATORY Blood STRUCTURE OF RIGHT UPPER LIMB / Unknown Venipuncture / Unknown 09/21/2023 5:22 AM CDT 09/21/2023 5:34 AM CDT Brittani Gomez MD LAB - BLOOD ORDERABL ES UR LABORATORY [facility] [address] [facility], [address] [place] [address] * ALT (09/21/2023 5:22 AM CDT) Only the most recent of2 resultswithin the time period is included. Pathologist [facility] ALT 20 0 - 50 U/L 09/21/2023 6:0 2 AM CDT UR LABORATORY Blood STRUCTURE OF RIGHT UPPER LIMB / Unknown Venipuncture / Unknown 09/21/2023 5:22 AM CDT 09/21/2023 5:34 AM CDT Brittani Gomez MD LAB - BLOOD ORDERABL ES UR LABORATORY [facility], [address] [place] [address] * (ABNORMAL) CBC with platelets (09/21/2023 5:22 [...] LAB - BLOOD ORDERABL ES UR LABORATORY [facility] [address] [facility], [address] [place] [phone] * RBC and Platelet Morphology (09/20/2023 [...] Crystals 09/20/2023 9:26 PM CDT UR LABORATORY [place] Bodies 09/20/2023 9:26 PM CDT UR LABORATORY [...] LAB - BLOOD ORDERABL ES UR LABORATORY [facility] [address] [place] [address], [address] * (ABNORMAL) Magnesium (09/20/2023 5:11 PM CDT) [facility] Magnesium 6.5(H) 1.7 - 2.3 mg/dL 09/20/2023 5:39 PM CDT UR LABORATORY Blood STRUCTURE OF LEFT UPPER LIMB / Unknown Venipuncture / Unknown 09/20/2023 5:11 PM CDT 09/20/2023 5:14 PM CDT Brittani Gomez MD LAB - BLOOD ORDERABL ES UR LABORATORY [facility] [address] [place] [address], [address] * Prepare red blood cells (unit) (09/20/2023 7:51 AM CDT) Only the most recent of2 resultswithin the time period is included. Blood Component Type Red Blood Cells UR BLOOD BANK Product Code Q2545P53 UR BLOO D BANK Unit Status Transfused UR BLOO D BANK Unit Number [id number] UR B LOOD BANK CROSSMATCH Compatible UR BLOOD BANK CODING SYSTEM [id number] UR BLO OD BANK ISSUE DATE AND TIME [id number] UR BLOOD BANK UNIT ABO/RH A- UR BLOOD BANK UNIT TYPE ISBT 0600 UR BL OOD BANK 09/20/2023 7:51 AM CDT Cecy Mabry MD BLOOD BANK PRODUCT O RDERABLES UR BLOOD BANK [facility] Lab [facility], [address] [place] [address] * FV AN CSE DUMMY PERFORMABLE (09/20/2023 6:00 AM CDT) Narrative Estephanie Storey MD - 09/20/2023 6:00 AM CDT Estephanie Storey MD ? 09/20/2023 ??6:21 AM Dural puncture epidural Procedure Note Pre-Procedure Staff - ? Anesthesiologist: ??Estephanie Storey MD ? Resident/Fellow: Geno Love MD ? Performed By: resident and with residents ? Procedure performed by resident/fellow/BEATER OUT in presence of a teaching physician. ? [...] Medication Administration Time: 09/20/2023 6:00 AM FOR [facility] ([facility]) ONLY: ?? Pain Team Contact information: please page the Pain Team Via [employer]. Search Pain. During daytime hours, please page the attending first. At night please page the resident first. Estephanie Storey MD [place] ANESTHESIA * (ABNORMAL) Comprehensive metabolic panel (09/20/2023 [...] LAB - BLOOD ORDERABL ES UR LABORATORY [facility] Care Lab [facility], Room [place] [id number] * ABO and Rh (09/20/2023 5:36 AM CDT) ABO/RH(D) A NEG 09/20/2023 8:04 AM CDT UR BLOOD BANK SPECIMEN EXPIRATION DATE [id number] 09/20/2023 8:04 AM CDT UR BLOOD BANK Blood BLOOD SPECIMEN / Unknown Venipuncture-No Charge / Unknown 09/20/2023 5:36 AM CDT 09/20/2023 8:05 AM CDT Laura Wisdom MD LAB - BLOOD BANK T EST ORDER Performing Organization Address City/[facility]/ZIP Co de Phone Number UR BLOOD BANK [facility] Lab [address] [place] [address], [address] * Adult Type and Screen (09/20/2023 12:10 AM CDT) ABO/RH(D) A NEG 09/19/2023 11:57 PM CDT UR BLOOD BANK Antibody Screen Negative Negative 09/19/2023 11:57 PM CDT UR BLOOD BANK SPECIMEN EXPIRATION DATE [id number] 09/19/2023 11:57 PM CDT UR BLOOD BANK Blood STRUCTURE OF LEFT UPPER LIMB / Unknown Venipuncture / Unknown 09/20/2023 12:10 AM CDT 09/20/2023 12:13 AM CDT Cecy Mabry MD LAB - BLOOD BANK DIANE T ORDER UR BLOOD BANK [facility] [place] [facility] [address] [place] [address], [address] * Hepatitis B Surface Antibody (09/20/2023 12:10 [...] LAB - BLOOD ORDER PARKER UU LABORATORY [facility] [place] [facility] [address] [facility], [address] * Treponema Abs w Reflex to RPR and Titer (09/20/2023 12:10 AM CDT) Treponema Antibody Total Nonreactive Nonreactive 09/20/2023 10:50 AM CDT SPECIALTY CORE/PROT/EN DO Blood STRUCTURE OF LEFT UPPER LIMB / Unknown Venipuncture / Unknown 09/20/2023 12:10 AM CDT 09/20/2023 12:13 AM CDT Cecy Mabry MD LAB - BLOOD ORDERABL ES SPECIALTY CORE/PROT/ENDO Specialty Core/Prot/Endo [address] [facility], [address] * Hepatitis B core antibody (09/20/2023 [...] LAB - BLOOD ORDER PARKER UU LABORATORY [facility] [place] [facility] [address] [facility], [address] [place] [address] * (ABNORMAL) Hemoglobin A1c (09/20/2023 12:10 [...] LAB - BLOOD ORDERABL ES UR LABORATORY [facility] [address] [facility], [address] [place] [address] * (ABNORMAL) UA with Microscopic reflex [...] 09/20/2023 4:11 AM CDT UR LABORATORY Specific [place] Urine 1.020 1.003 - 1.035 09/20/2023 4:11 [...] LAB - URINE ORDERABL ES UR LABORATORY [facility] [address] [facility], [address] [place] [address] * (ABNORMAL) Protein random urine (09/20/2023 [...] LAB - URINE ORDERABL ES UR LABORATORY [facility] [address] [facility], [address] [place] [address], [facility] * [facility] Comprehensive Single F/U (09/15/2023 2:12 PM CDT) [...] ? Study Date: ??09/15/2023 1:45pm Pat. NO: ??[id number] ?Referring ??MD: HOMAR MEDRANO Site: ? Program Coordinator Executive Education: Micha Gage [facility] : ??1985 ?Age: ?? 37 [...] lb 2 ?oz EFW by ? Hadlock ([id number]) ANATOMY ----- The following structures appear normal: [...] EDWARDS Study Date: 09/15/2023 1:45pm Pat. NO: [id number] Referring MD: HOMAR MEDRANO Site: Program Coordinator Executive Education: Micha Gage RDMS : 1985 Age: 37 [...] EFW (lb,oz) 8 lb 2oz EFW by Hadlock([id number]) ANATOMY ----- The following structures appear normal: [...] BPP is reassuring. Luz Elena Betts MD [facility] US ORDERABLE S * [facility] BPP Single (09/08/2023 12:22 PM CDT) Only the most recent of5 resultswithin the time period is included. Anatomical Region Laterality Modality Ultrasound 09/08/2023 12:0 1 PM CDT Impressions 09/08/2023 12:24 PM CDT IMPRESSION ----- 1) Mild polyhydramnios. 2) BPP is reassuring. Narrative 09/08/2023 12:24 PM CDT ?BPP ----- Pat. Name: JACK EDWARDS ? Study Date: ??09/08/2023 12:01pm Pat. NO: ??[id number] ?Referring ??MD: HOMAR MEDRANO Site: ? Program Coordinator Executive Education: Gemma Pinzon RDMS : ??1985 ?Age: ?? [...] BPP at your office weekly and at [facility] weekly. Return to primary provider for [...] EDWARDS Study Date: 09/08/2023 12:01pm Pat. NO: [id number] Referring MD: HOMAR MEDRANO Site: Program Coordinator Executive Education: Gemma AMALIA Pinzon : 1985 Age: 37 [...] [facility] Return to primary provider for continued care. Thank-you for the opportunity to participate in the care of this patient.If you have questions regarding today's evaluation or if we can be offurther service, please contact the Maternal- Medicine Center. anomalies may be present but not detected IMPRESSION ----- 1) Mild polyhydramnios. 2) BPP is reassuring. Bassem Pathak MD IMG [facility] US ORDERABLE S * Bright Pattern Non-Invasive Screening???Prequel (07/24/2023 2:49 PM CDT) See Scanned Result [employer] NON-INVASIVE SCREENING PREQUEL-Scann ed 08/02/2023 7:16 PM CDT [employer] Blood STRUCTURE OF RIGHT UPPER LIMB / Unknown Venipuncture / Unknown 07/24/2023 2:49 PM CDT 07/24/2023 2:49 PM CDT Laura Abdi LAB - BLOOD ORDERABL ES [employer] [facility] [address] [place] [address], [facility] [phone] * [facility] US Comprehensive Single (07/24/2023 2:13 PM [...] ? Study Date: ??07/24/2023 1:32pm Pat. NO: ??[id number] ?Referring ??MD: HOMAR MEDRANO Site: ??[facility] ? Program Coordinator Executive Education: Sujatha Joyce RDMS : ??1985 ?Age: ?? [...] 3 lb 10 ?oz EFW by ?Hadlock ([id number]) Head / Face / Neck Biometry: Expressive Therapist ? 3.6 ? mm CM ?5.7 ? [...] cava. Inferior vena cava. 3-vessel ? view. 9-uslexm-tqrgcgr view. Cardiac position. Cardiac size. Cardiac rhythm. 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 No one has started her on insulin [...] EDWARDS Study Date: 07/24/2023 1:32pm Pat. NO: [id number] Referring MD: HOMAR MEDRANO Site: [facility] Program Coordinator Executive Education: Sujtaha Joyce RDMS : 1985 Age: 37 ----- [...] 3 lb 10 oz EFW by Hadlock ([id number]) Head / Face / Neck Biometry: Expressive Therapist 3.6 mm CM 5.7 mm Nasal bone [...] Superior venacava. Inferior vena cava. 3-vessel view. 1-fcpgnr-zkvwnkt view.Cardiac position. Cardiac size. Cardiac rhythm. 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 No one has started her on insulin [...] 6. The BPP was 8/8. Homar Medrano BLOCKMAN DATA CLERK IMG [facility] ORDERABLES from Last 3 Months Advance Directives For more information, please contact: [phone] * Full Code (Latest Code Status on File) Date Activated Date Inactivated Comments 09/20/2023 8:47 AM 09/23/2023 10:12 PM All basic a nd advanced life-sustaining interventions are performed as appropriate Question Answer Comments Code status determined by: Unable to dis cuss and no AD/POLST on file; continue PREVIOUSLY ORDERED code status Care Teams Nail Assembly Machine Operator Relationship Specialty Start Date End Date No Ref-Primary, Physician PCP - General 09/20/23 Bassem Pathak MD [address] [place] [address] Assigned OBGYN Provider 08/16/23
--- OUTSIDE RECORDS SUMMARY | 2023-10-09 15:47 | XMS_ITS | Encounter Summary ---
Author Organization Blanket Address [address] [place] [address] Care Team Providers Care Comb Fixer Name Role Phone Bassem Pathak MD Unavailable [phone] No Ref-Primary, Physician Primary Care Provider Encounter Details Date Type Department Care Team (Late st Contact Info) Description 09/28/2023 [facility] Medical Advice [facility] [address] [place] [address] Sumi Peraza RN Social History Tobacco Use Types Packs/Day Years Used Date Smoking Tobacco: Never Smokeless Tobacco: Never Alcohol Use Standard Drinks/Week Comments Not Currently 0 (1 standard drink = 0.6 oz pur e alcohol) [place] Depression Scale Answer Date Recorded Last EPDS [...] on filedocumented in this encounter Care Teams Comb Fixer Relationship Specialty Start Date End Date No Ref-Primary, Physician PCP - General 09/20/23 Bassem Pathak MD [address] [address] Assigned OBGYN Provider 08/16/23 documented as of this encounter
--- OUTSIDE RECORDS SUMMARY | 2023-10-09 15:47 | XMS_ITS | Encounter Summary ---
Author Organization [facility] Address [address] [place] [address]. [place] [address] Care Team Providers Care Surgery Assistant Name Role Phone Ter Ba MD Primary Care Provide r Bassem Pathak MD Unavailable [phone] No Ref-Primary, Physician Primary Care Provider Reason for Referral * Home Health Therapies & Aides (Routine: Next available opening) Specialty Diagnoses / Procedures Referred By Contac t Referred To Contact [address] [address] Referral ID Status Reason Start Date Expiration Date Visits Re quested Visits Authorized Question Answer Please see patient within 72 hours of discharge Reason for Referral /Low Milk Supply, Blood Pressure, Routine Comments If your home visit was not scheduled during your hospital stay, you should receive a call from [facility] within 24 hours after discharge to schedule your ordered home visit. If you have not heard by then, please call [phone]. Reason for Visit * Reason Comments Pre-Eclampsia * Auth/Cert (Routine) Specialty Diagnoses / Procedures Referred By Contac t Referred To Contact Obstetrics Diagnoses Maternity*BROOKE: 10/10/23*Preeclampsia Preeclampsia, severe Ur [address] [address] Referral ID Status Reason Start Date Expiration Date Visits Re quested Visits Authorized [id number] 1 1 Encounter Details Date Type Department Care Team (Latest Contact Info) Description 09/19/2023 11:56 PM CDT - 09/23/2023 8:00 PM CDT Hospital Encounter M Todd Acosta [facility] [address] [place] [address] Najma Bell MD [address] [place] [address] Laura Wisdom MD [address] [place] [address] (spontaneous vaginal delivery) (Primary Dx); Severe pre-eclampsia, antepartum Discharge Disposition: Home-Health Care Svc Social History Tobacco Use Types Packs/Day Years Used Date Smoking Tobacco: Never Smokeless Tobacco: Never Alcohol Use Standard Drinks/Week Comments Not Currently 0 (1 standard drink = 0.6 oz pur e alcohol) [place] Depression Scale Answer Date Recorded Last EPDS [...] 12.8 oz) 09/23/2023 8:16 AM CDT Height - - Body Mass Index 35.3 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 [facility] Discharge Summary Sheba Wilder Age: [age] year old Date of : 1985 Date of Admission: 09/19/2023 Date of Discharge: 09/23/2023 Admitting Physician: Najma Bell MD Discharge Physician: Laura Wisdom MD Admit Dx: - at 37w1d - Preeclampsia with severe features - LGA fetus with EFW 98%ile, AC 99%ile - T2DM - Hx GDM - Hx gHTN - Hx infant macrosomia - RIVER- no [employer]ESSION[employer] meds - AMA - Obesity- BMI 39 Discharge Dx: - Same as above, now s/p - Shoulder dystocia - hemorrhage - Acute blood loss anemia Procedures: - Spontaneous vaginal delivery - Epidural analgesia - Alondra placement and removal Admit HPI: Sheba Wilder is a 37 year old at 37w1d by LMP who presents as a transfer care from referral due to new diagnosis of severe preeclampsia. Sheba has presented to [facility] for induction of labor in the setting of type 2 diabetes. At the start of her induction of labor she was found to have sustained severe range blood pressures requiring a full round of IV short acting labetalol and 2 doses of hydralazine 10 mg. Due to concern for possible need for nicardipine drip, recommendations were made to transfer patient to [facility] in anticipation for possible ICU admission. She was initiated on nifedipine 60 mg prior to transfer and her blood pressures were stabilized in the lowmild ranges. Please see her Admission H&P and Delivery Summary for further details. Labor Course: Upon arrival, she was started on misoprostol for cervical ripening and was started on magnesium gtt. She required intermittent IV antihypertensives with labetalol throughout her labor course. Labor was further augmented using pitocin and AROM. She was GBS positive and received adequate antibiotic prophylaxis. She progressed to complete and pushed for 13 minutes. delivered LANNY. A shoulder dystocia was identified at time of delivery. The patient was placed in Marlee position and suprapubic pressure was applied, without resolution. The posterior (left) arm was then delivered. The totaltime of the shoulder dystocia was 1 minute. had poor tone, and the cord was immediately clamped and cut. The infant was handed off to the NICU staff. Apgars 3, 3, and 8 at 1, 5, and 10 minutes. Weight 4394 grams. Placenta delivered with gentle cord traction, and noted to be intact with 3 vessel cord. She sustained a 1st degree perineal laceration, which was repaired with a figure of X using 3-0 Vicryl. Her delivery was complicated by a hemorrhage. She received IV Pitocin, buccal misoprostol, IM Hemabate, and IV TXA. There was persistent lower uterine segment atony with evacuation of a large amount of clot on lower uterine segment sweep. A Alondra was placed. Bleeding was subsequently stable. QBL 1080 mL. Course: Her course was uncomplicated. Alondra was removed without issue and she had no additional concerning bleeding. Her blood pressures were serially monitored and she was normotensive on nifedipine 60 mg daily. She had some elevated blood sugars in the period for which endocrinology was consulted and recommended discharging on metformin along with close outpatient follow up. She did receive 2u PRBCs for her ABLA prior to discharge. On PPD#2, she was meeting all of her goals and deemed stable for discharge. She was voiding without difficulty, tolerating a regular diet without nausea and vomiting, her pain was well controlled on oral pain medicines and her lochia was appropriate. Her hemoglobin prior to delivery was 10.5 and after delivery was 7.1. Her Rh status was negative, and Rhogam was not indicated as baby was A neg. Discharge Medications: Review of your medicines START taking Dose / Directions ferrous sulfate 325 (65 Fe) MG tablet Commonly known as: FEROSUL Used for: (spontaneous vaginal delivery) Dose: 325 mg Take 1 tablet (325 mg) by mouth daily (with breakfast) Quantity: 60 tablet Refills: 1 metFORMIN 500 MG 24 hr tablet Commonly known as: GLUCOPHAGE XR Used for: (spontaneous vaginal delivery) Dose: 500 mg Take 1 tablet (500 mg) by mouth daily (with dinner) Quantity: 60 tablet Refills: 2 NIFEdipine ER 30 MG 24 hr tablet Commonly known as: ADALAT CC Used for: (spontaneous vaginal delivery) Dose: 60 mg Take 2 tablets (60 mg) by mouth daily Quantity: 60 tablet Refills: 1 senna-docusate 8.6-50 MG tablet Commonly known as: SENOKOT-S/PERICOLACE Used for: (spontaneous vaginal delivery) Dose: 1 tablet Take 1 tablet by mouth daily Start after delivery. Quantity: 100 tablet Refills: 0 CONTINUE these medicines which may have CHANGED, or have new prescriptions. If we are uncertain of the size of tablets/capsules you have at home, strength may be listed as something that might have changed. Dose / Directions * acetaminophen 325 MG tablet Commonly known as: TYLENOL This may have changed: Another medication with the same name was added. Make sure you understand how and when to take each. Used for: Missed Dose: 975 mg Take 3 tablets (975 mg) by mouth every 6 hours as needed for mild pain Quantity: 50 tablet Refills: 0 * acetaminophen 325 MG tablet Commonly known as: TYLENOL This may have changed: You were already taking a medication with the same name, and this prescription was added. Make sure you understand how and when to take each. Used for: (spontaneous vaginal delivery) Dose: 650 mg Take 2 tablets (650 mg) by mouth every 6 hours as needed for mild pain Start after Delivery. Quantity: 100 tablet Refills: 0 * ibuprofen 800 MG tablet Commonly known as: ADVIL/MOTRIN This may have changed: Another medication with the same name was added. Make sure you understand how and when to take each. Used for: Missed Dose: 800 mg Take 1 tablet (800 mg) by mouth every 6 hours as needed for other (mild and/or inflammatory pain) Quantity: 30 tablet Refills: 0 * ibuprofen 600 MG tablet Commonly known as: ADVIL/MOTRIN This may have changed: You were already taking a medication with the same name, and this prescription was added. Make sure you understand how and when to take each. Used for: (spontaneous vaginal delivery) Dose: 600 mg Take 1 tablet (600 mg) by mouth every 6 hours as needed for moderate pain Start after delivery Quantity: 60 tablet Refills: 0 * This list has 4 medication(s) that are the same as other medications prescribed for you. Read thedirections carefully, and ask your doctor or other care provider to review them with you. Where to get your medicines These medications were sent to [place], [place] - [address] [facility] [address], [facility] [address] acetaminophen 325 MG tablet ferrous sulfate 325 (65 Fe) MG tablet ibuprofen 600 MG tablet metFORMIN 500 MG 24 hr tablet NIFEdipine ER 30 MG 24 hr tablet senna-docusate 8.6-50 MG tablet Discharge/Disposition: Sheba Wilder was discharged to home in stable condition with the following instructions/medications: 1) Call for temperature > 100.4, bright red vaginal bleeding >1 pad an hour x 2 hours, foul smelling vaginal discharge, pain not controlled by usual oral pain meds, persistent nausea and vomiting not controlled on medications 2) She desired Nexplanon for contraception which was placed prior to discharge. 3) For feeding she decided to formula feed. 4) She was instructed to follow-up with her primary OB in 6 weeks for a routine visit and within 3 days for a blood pressure check. Najma Orellana DO, PGY-2 [facility] September 23, 2023 4:30 PM I have seen, examined, and counseled the patient on the day of discharge. I have reviewed and edited the summary. Laura Wisdom documented in this encounter Discharge Instructions * Discharge Instructions* Ina Swan RN - 09/23/2023 4:23 PM CDT Images from the original note were not included. Warning Signs after Having a Baby Keep this paper on your fridge or somewhere else where you can see it. Call your provider if you have any of these symptoms up to 12 weeks after having your baby. Thoughts of hurting yourself or your baby Pain in your chest or trouble breathing Severe headache not helped by pain medicine Eyesight concerns (blurry vision, seeing spots or flashes of light, other changes to eyesight) Fainting, shaking or other signs of a seizure Call if you feel that it is an emergency. The symptoms below can happen to anyone after giving . They can be very serious. Call your provider if you have any of these warning signs. My provider???s phone number: Losing too much blood (hemorrhage) Call your provider if you soak through a pad in less than an hour or pass blood clots bigger than agolf ball. These may be signs that you are bleeding too much. Blood clots in the legs or lungs After you give , your body naturally clots its blood to help prevent blood loss. Sometimes this increased clotting can happen in other areas of the body, like the legs or lungs. This can block your blood flow and be very dangerous. Call your provider if you: Have a red, swollen spot on the back of your leg that is warm or painful when you touch it. Are coughing up blood. Infection Call your provider if you have any of these symptoms: Fever of 100.4 F (38 C) or higher. Pain or redness around your stitches if you had an incision. Any yellow, white, or green fluid coming from places where you had stitches or surgery. Mood Problems ( depression) Many people feel sad or have mood changes after having a baby. But for some people, these mood swings are worse. Call your provider right away if you feel so anxious or nervous that you can't care for yourself oryour baby. Preeclampsia (high blood pressure) Even if you didn't have high blood pressure when you were , you are at risk for the high blood pressure disease called preeclampsia. This risk can last up to 12 weeks after giving . Call your provider if you have: Pain on your right side under your rib cage Sudden swelling in the hands and face Remember: You know your body. If something doesn't feel right, get medical help. For informational purposes only. Not to replace the advice of your health care provider. Copyright 2020 [facility] [employer] [facility]. All rights reserved. Clinically reviewed by Leanne Schaefer, JDC-OB, MSN. [employer] 389252 - Rev 04/17. Care at Home With Your Baby: Care Instructions Overview After childbirth ( period), your body goes through many changes as you recover. In these weeks after delivery, try to take good care of yourself. Get rest whenever you can and accept help from others. It may take 4 to 6 weeks to feel like yourself again, and possibly longer if you had a . You may feel sore or very tired as you recover. After delivery, you may continue to have contractions as the uterus returns to the size it was before your . You will also have some vaginal bleeding. And you may have pain around the vagina as you heal. Several days after delivery you mayalso have pain and swelling in your breasts as they fill with milk. There are things you can do at home to help ease these discomforts. After childbirth, it's common to feel emotional. You may feel irritable, cry easily, and feel happyone minute and sad the next. This is called the baby blues. Hormone changes are one cause of these emotional changes. These feelings usually get better within a couple of weeks. If they don't, talkto your doctor or carpet renovator. In the first couple of weeks after you give , your doctor or carpet renovator may want to check in withyou and make a plan for follow-up care. You will likely have a complete visit in the first 3 months after delivery. At that time, your doctor or carpet renovator will check on your recovery and seehow you're doing. But if you have questions or concerns before then, you can always call your doctor or carpet renovator. Follow-up care is a car part of your treatment and safety. Be sure to make and go to all appointments, and call your doctor if you are having problems. It's also a good idea to know your test resultsand keep a list of the medicines you take. How can you care for yourself at home? Taking care of your body Use pads instead of tampons for bleeding. After , you will have bloody vaginal discharge. You may also pass some blood clots that shouldn't be bigger than an egg. Over the next 6 weeks or so, your bleeding should decrease a little every day and slowly change to a pinkish and then whitish discharge. For cramps or mild pain, try an ecww-ets-ndsqdep pain medicine, such as acetaminophen (Tylenol) or ibuprofen (Advil, Motrin). Read and follow all instructions on the label. To ease pain around the vagina or from hemorrhoids: Put ice or a cold pack on the area for 10 to 20 minutes at a time. Put a thin cloth between the iceand your skin. Try sitting in a few inches of warm water (sitz bath) when you can or after bowel movements. Clean yourself with a gentle squeeze of warm water from a bottle instead of wiping with toilet paper. Use witch tasia or hemorrhoid pads (such as Tucks). Try using a cold compress for sore and swollen breasts. And wear a supportive bra that fits. Ease constipation by drinking plenty of fluids and eating high-fiber foods. Ask your doctor or carpet renovator about fpdu-ovn-bddnzrh stool softeners. Activity Rest when you can. Ask for help from family or friends when you need it. If you can, have another adult in your home for at least 2 or 3 days after . When you feel ready, try to get some exercise every day. For many people, walking is a good choice.Don't do any heavy exercise until your doctor or carpet renovator says it's okay. Ask your doctor or carpet renovator when it is okay to have vaginal sex. If you don't want to get , talk to your doctor or carpet renovator about control options. You can get even before your period returns. Also, you can get while you are . Talk to your doctor or carpet renovator if you want to get again. They can talk to you about when it is safe. Emotional health It's normal to have some sadness, anxiety, and mood swings after delivery. It may help to talk witha trusted friend or family member. You can also call the Maternal Mental Health Hotline at 5-804-FTN-[facility] ( ) for support. If these mood changes last more than a couple of weeks, talk toyour doctor or carpet renovator. When should you call for help? Share this information with your partner, family, or a friend. They can help you watch for warning signs. Call 911 anytime you think you may need emergency care. For example, call if: You feel you cannot stop from hurting yourself, your baby, or someone else. You passed out (lost consciousness). You have chest pain, are short of breath, or cough up blood. You have a seizure. Where to get help 24 hours a day, 7 days a week If you or someone you know talks about suicide, self-harm, a mental health crisis, a substance use crisis, or any other kind of emotional distress, get help right away. You can: Call the Suicide and Crisis Lifeline at 988. Call 7-672-610-TALK ( ). Text HOME to 248743 to access the Crisis Text Line. Consider saving these numbers in your phone. Go to [employer] for more information or to chat online. Call your doctor or carpet renovator now or seek immediate medical care if: You have signs of hemorrhage (too much bleeding), such as: Heavy vaginal bleeding. This means that you are soaking through one or more pads in an hour. Or youpass blood clots bigger than an egg. Feeling dizzy or lightheaded, or you feel like you may faint. Feeling so tired or weak that you cannot do your usual activities. A fast or irregular heartbeat. New or worse belly pain. You have signs of infection, such as: A fever. Increased pain, swelling, warmth, or redness from an incision or wound. Frequent or painful urination or blood in your urine. Vaginal discharge that smells bad. New or worse belly pain. You have symptoms of a blood clot in your leg (called a deep vein thrombosis), such as: Pain in the calf, back of the knee, thigh, or groin. Swelling in the leg or groin. A color change on the leg or groin. The skin may be reddish or purplish, depending on your usual skin color. You have signs of preeclampsia, such as: Sudden swelling of your face, hands, or feet. New vision problems (such as dimness, blurring, or seeing spots). A severe headache. You have signs of heart failure, such as: New or increased shortness of breath. New or worse swelling in your legs, ankles, or feet. Sudden weight gain, such as more than 2 to 3 pounds in a day or 5 pounds in a week. Feeling so tired or weak that you cannot do your usual activities. You had spinal or epidural pain relief and have: New or worse back pain. Increased pain, swelling, warmth, or redness at the injection site. Tingling, weakness, or numbness in your legs or groin. Watch closely for changes in your health, and be sure to contact your doctor or carpet renovator if: Your vaginal bleeding isn't decreasing. You feel sad, anxious, or hopeless for more than a few days. You are having problems with your breasts or . Where can you learn more? Go to https://www.AIFOTEC.net/patiented Enter Z768 in the search box to learn more about Care at Home With Your Baby: Care Instructions. Current as of: September 01, 2022 Content Version: 14.0 ?? [employer]. Care instructions adapted under license by your healthcare professional. If you have questions about a medical condition or this instruction, always ask your healthcare professional. [employer] disclaims any warranty or liability for your use of this information. Checking Your Blood Pressure at Home During and after How do I measure my blood pressure? It???s important to take the readings at the same time each day, such as morning and evening. Take your blood pressure before taking any morning medications. How to get the most accurate reading 30 minutes before checking your blood pressure, avoid the following: Drinking caffeine Drinking alcohol Eating Smoking Exercising 5 minutes before checking your blood pressure: Use the bathroom and urinate so you have an empty bladder. Sit still in a chair for around 5 minutes. Stay calm and relaxed and do not talk if possible. To check your blood pressure: Sit up straight in a chair. Place your feet on the floor. Don???t cross your ankles or legs. Rest your arm at the level of your heart on a table or desk or on the arm of a chair. Use the same arm every day. Pull up your shirt sleeve. Don???t take the measurement over clothes. Wrap the blood pressure cuff around the upper part of your left arm, 1 inch (2.5 cm) above your elbow. Fit the cuff snugly around your arm. You should be able to place only one finger between the cuff and your arm. Position the cord so that it rests in the bend of your elbow. Press the power button. Sit quietly while the cuff inflates and deflates. Read the digital reading on the monitor screen and write the numbers down (record them) in a notebook. Wait 2-3 minutes, then repeat the steps, starting at step 1. Which features do you need? Arm cuff monitors give the most exact readings. Wrist and finger blood pressure monitors are often less exact. Pick a blood pressure monitor that has passed tests to show they measure exactly. Blood pressure cuffs for sale in the [place] that have passed tests are listed on the website www.validatebp.org. Some monitors that have passed tests are: Omron 3 Series Upper Arm Blood Pressure Monitor (Model RA9095) Omron 5 Series Upper Arm Blood Pressure Monitor (Model EQ4539) Omron 7 Series Upper Arm Blood Pressure Monitor (Model HEM-7320) [employer] Medical Upper Arm Blood Pressure Monitor with Talking Function (UA 1030T) Don???t use smartphone apps. There are many smartphone apps that claim to check your blood pressureusing the pulse in your wrist or finger. These don???t work. They haven???t passed any tests. Don???t give your clinic a blood pressure reading from a smartphone vinny. If you have a flexible spending account (FSA) or health savings account (HSA), you may wish to pay yourself back (reimburse) for the machine and cuff. A blood pressure monitor is an allowed wgya-ezo-bmxcika (OTC) item to pay yourself back from these accounts. Cuff size The size of the arm cuff is a car feature. Make sure the cuff is the right size for your arm. If the cuff isn???t the right size, readings will either be too high or low. To know what size cuff to buy, measure the distance around your bicep (upper arm). Use a flexible measuring tape or paper stripper. Place the measuring tape snf between your armpit and elbow. Measure the distance around your arm in inches. You may need to buy a cuff apart from the machine to get the right size. Cuff sizes and arm measurements Small adult: 22 to 26 cm (8.7 to 10.2 inches) Adult: 27 to 34 cm (10.6 to 13.4 inches) Large adult: 35 to 44 cm (13.8 to 17.3 inches) Adult thigh: 45 to 52 cm (17.7 to 20.5 inches) Copyright statement content=For informational purposes only. Not to replace the advice of your health care provider. Photo: ID [id number] ?? [employer]. Text copyright ?? 2022 [facility] [employer]. All rights reserved. Clinically reviewed by [facility]. [employer] 462443 - REV 05/15. Know Your Blood Pressure Numbers For patients who've had a high blood pressure disorder of What to know about high blood pressure disorders of People who had high blood pressure during may continue to have high blood pressure for upto 12 weeks after . It can also raise your lifetime risk of chronic high blood pressure, heart disease and blood vessel disease. It is vital that you keep monitoring your blood pressure and taking steps to control it. The general guidelines below are what your blood pressures mean. A heart healthy lifestyle that includes blood pressure control can help reduce these risks. A good blood pressure goal is less than 130/80 mmHg long-term. Talk to your provider about high blood pressure disorder of and what this means for your lifelong health. Know your numbers Read Checking Your Blood Pressure at Home to learn the best way to take your blood pressure. Refer to the next page for general guidelines about what your blood pressures mean and what to do about them. Follow these instructions unless your provider tells you something different. For more resources, visit www.preeclampsia.org. What to do if your blood pressure is high Act right away if you have numbers in the yellow or red range--don't wait for a scheduled appointment. When to call your provider Regardless of your blood pressure, call your healthcare provider right away if you develop any of these symptoms: Severe headache Chest pain Trouble breathing Stomach pain Changes in vision Swelling in your hands and face. Please say, I am having symptoms of high blood pressure. My provider told me to call and ask to beseen right away when I have these symptoms. If you ARE OR it has been less than 12 weeks since you delivered Systolic pressure (top number) is.... Diastolic (bottom number) is.... Your blood pressure is.... 160 or higher or 110 or higher VERY HIGH. Check it again in 10 minutes, then contact your provider. 140 - 159 or 90 - 109 HIGH. Keep checking blood pressure 2 times a day. If your blood pressure is in this range for 2 readings, contact your provider within 24 hours. We will discuss starting or increasing your blood pressure medicine. 100 - 139 and 60 - 89 NORMAL. Your blood pressure looks great! Keep checking it 2 times a day. Less than 100 or Less than 60 LOW. Check your blood pressure again in 10 minutes, then contact your provider. We may need to make changes to your blood pressure medicine. Call your provider right away if you have these symptoms: a severe headache, vision changes, shortness of breath, chest pain, or right upper belly pain. Call even if your blood pressure is okay. Call 10-24- if you feel the symptoms are severe and that it is an emergency. If you are NOT OR it has been more than 12 weeks since you delivered Systolic pressure (top number) is.... Diastolic (bottom number) is.... Your blood pressure is.... Higher than 180 and/or Higher than 120 Hypertensive crisis. Call your doctor right away. 140 or higher or 90 or higher Hypertension Stage 2. Follow up with your provider. 130-139 or Less than 80 Hypertension Stage 1. Follow up with your provider. 120-129 and Less than 80 Elevated blood pressure (pre-hypertension). You are at higher risk of developing high blood pressure. Follow up with your provider. Less than 120 and Less than 80 Normal. Call your provider right away if you have these symptoms: a severe headache, vision changes, shortness of breath, chest pain, or right upper belly pain. Call even if your blood pressure is okay. Call if you feel the symptoms are severe and that it is an emergency. For informational purposes only. Not to replace the advice of your health care provider. Copyright ?? 2022 [facility]. All rights reserved. Clinically reviewed by [facility]. [employer] [id number] - 05/15. documented in this encounter Medications at Time of Discharge Medication Sig Dispensed Refills Start Date End Date acetaminophen (TYLENOL) 325 MG tabletIndications: (spontaneous vaginal delivery) Take 2 tablets (650 mg) by mouth every 6 hours as needed for mild pain Start after Delivery. 100 tablet 09/23/2023 acetaminophen (TYLENOL) 325 MG tabletIndications:Mis sed Take 3 tablets (975 mg) by mouth every 6 hours as needed for mild pain 50 tablet 01/20/2022 ferrous sulfate (FEROSUL) 325 (65 Fe) MG tabletIndications: (spontaneous vaginal delivery) Take 1 tablet (325 mg) by mouth daily (with breakfast) 60 tablet 1 09/23/2023 ibuprofen (ADVIL/MOTRIN) 600 MG tabletIndications: (spontaneous vaginal delivery) Take 1 tablet (600 mg) by mouth every 6 hours as needed for moderate pain Start after delivery 60 tablet 09/23/2023 ibuprofen (ADVIL/MOTRIN) 800 MG tabletIndications:Mis sed Take 1 tablet (800 mg) by mouth every 6 hours as needed for other (mild and/or inflammatory pain) 30 tablet 01/20/2022 metFORMIN (GLUCOPHAGE XR) 500 MG 24 hr tabletIndications: (spontaneous vaginal delivery) Take 1 tablet (500 mg) by mouth daily (with dinner) 60 tablet 2 09/23/2023 NIFEdipine ER (ADALAT CC) 30 MG 24 hr tabletIndications: (spontaneous vaginal delivery),Severe pre-eclampsia, antepartum Take 2 tablets (60 mg) by mouth daily 60 tablet 1 09/23/2023 senna-docusate (SENOKOT-S/PERICOLACE ) 8.6-50 MG tabletIndications: (spontaneous vaginal delivery) Take 1 tablet by mouth daily Start after delivery. 100 tablet 09/23/2023 documented as of this encounter Progress Notes * Millie Francis MD - 09/23/2023 2:02 PM CDT Procedure Note: Nexplanon insertion Preoperative Diagnosis: Desires long-acting reversible contraception Postoperative Diagnosis: Desired long-acting reversible contraception, s/p Nexplanon placement Consent: Risks, benefits of treatment, and treatment were discussed. Patient's questions were elicited and answered. Written consent signed and scanned into medical record. Patient received and verbalized understanding of discharge instructions Skin Preparation: Betadine Anesthesia: 3 mL 1% lidocaine without EPI Technique: Patient was consented for Nexplanon placement. The patient's left arm was flexed and externally rotated with her wrist parallel to her ear. The groove between her biceps and triceps was easily palpated. An insertion lety was made 8 cm from the medial epicondyle of the elbow in the groove. A guiding lety was also made to assist with positioning Implanon correctly at time of insertion. Th e 3cc of 1% lidocaine without epinephrine were then injected along the line of insertion of the Nexplanon from the insertion lety to the guiding lety to provide local anesthesia. The tip of the Nexplanon applicator was then inserted at a 20 degree angle into the floyd at the insertion lety and the needle was advanced the full length keeping the skin tented during insertion. The applicator seal wasbroken and the cannula was then retracted. The patient's arm was examined and the Nexplanon kilo waseasily palpated. The patient also palpated her arm and was able to appreciate the presence of the kilo. Pressure was held at the insertion lety. A pressure bandage was then placed using Kerlix gauze. The patient tolerated the procedure very well. EBL: <5 mL Complications: None Nexplanon Lot#: [id number] EXP: 05/2025 Dr. Francis was present and gloved for the procedure. Najma Orellana DO, PGY-2 [facility] September 23, 2023 2:02 PM Staff: I was present for entire procedure and agree w/ above note. Millie Francis MD * Lauar Wisdom MD - 09/23/2023 9:03 AM CDT [facility] Note Name: Sheba Wilder S: Patient is feeling much better. She thinks getting a unit of blood helped. Pain well controlled.Tolerating regular diet without nausea or vomiting. Ambulating without dizziness. Lochia minimal and decreasing. Voiding without difficulty. Formula feeding. Denies headache, vision changes, chest pain, SOB. Hoping to go home today. O: Patient Vitals for the past 24 hrs: BP Temp Temp src Pulse Resp SpO2 Weight 09/23/23 0816 130/77 98.1 ??F (36.7 ??C) Oral 102 20 -- 84.7 kg (186 lb 12.8 oz) 09/23/23 0354 139/82 98.3 ??F (36.8 ??C) Oral 110 18 -- -- 09/23/23 0053 125/73 98.2 ??F (36.8 ??C) Oral 103 -- -- -- 09/22/23 2342 129/78 99.5 ??F (37.5 ??C) Oral 113 18 -- -- 09/22/23 1934 128/74 99.8 ??F (37.7 ??C) Oral 95 18 -- -- 09/22/23 1616 125/73 98.9 ??F (37.2 ??C) Oral 94 18 -- -- 09/22/23 1529 132/78 98.5 ??F (36.9 ??C) Oral 105 18 97 % -- 09/22/23 1432 128/75 98.9 ??F (37.2 ??C) Oral 96 18 -- -- 09/22/23 1419 115/83 98.4 ??F (36.9 ??C) -- 99 16 -- -- 09/22/23 1211 108/58 98.4 ??F (36.9 ??C) Oral 90 18 -- 86.4 kg (190 lb 7.6 oz) Gen: Resting comfortably. NAD. CV: Regular rate. Well perfused. Pulm: Non-labored breathing on room air. Abd: Soft, appropriately tender, non-distended. Fundus below umbilicus, firm and non-tender. Ext: Non-tender, trace LE edema bilaterally. I/O last 3 completed shifts: In: 2880 [P.O.:2880] Out: 4075 [Urine:4075] Hgb: Hemoglobin Date Value Ref Range Status 09/23/2023 7.1 (L) 11.7 - 15.7 g/dL Final Assessment/Plan: Sheba Wilder 37 year old on PPD #2 s/p . notable for PreE w/ SF, type 2 DM, RIVER. Doing well . # management - Rh negative, negative - Rubella immune - Pain: Well controlled with ibuprofen, Tylenol PRN - Hgb 10.5 > QBL 1000 (TXA, Hemabate, misoprostol, Alondra) > 9.2> 6.3> 1u pRBCs> 7.1> AM Hgb pending; acute blood loss anemia due to PPH, will recommend transfusion of additional 1u PRBCs today - GI: Bowel regimen and antiemetics PRN, simethicone PRN - : Voiding spontaneously - PPX: Encourage ambulation - Feed: Formula feeding - BC: Nexplanon PTD # Tachycardia, asymptomatic Suspect most likely due to anemia. Less likely due to pain as patient is quite comfortable. Less likely due to hypovolemia as patient is eating and drinking normally and diuresing well . - Transfuse 1 additional unit of pRBCs this morning # PreE w/SF - BPs: Normal - Medications: Nifedipine 60 mg qPM - Symptoms: None - Labs: Stable thrombocytopenia, otherwise normal - UOP: Adequate - S/p 24h IV magnesium # T2DM - S/p endocrinology consult, will confirm their recommendation for metformin - QID glucose, mSSI # RIVER - No PROGRAM MANAGEMENT PROFESSIONAL medications Medically Ready for Discharge: Anticipated Today Ivis Gomez MD STEAM BOX OPERATOR PGY-3 09/23/2023 9:03 AM I have seen and examined the patient without the resident. I have reviewed, edited, and agree with the note. My findings are: resting comfortably Ok to discharge after PRBC Laura Wisdom MD * Axel Quezada MD - 09/22/2023 9:42 [...] Snyder MD - 09/22/2023 4:19 AM CDT [facility] Post- Progress Note Name: Sheba Wilder S: [...] Lee MD - 09/21/2023 6:20 PM CDT [facility] Magnesium Check Note S: Patient is tolerating [...] MD - 09/21/2023 8:24 AM CDT Brief STEAM BOX OPERATOR Note Reevaluated Alondra at bedside. There was approximately 300 mL in the cannister at 5 AM, and this was unchanged 1 hour later. The device was taken off suction and the balloon deflated at ~6:15 AM. On reevaluation 30 minutes later, there was no significant bleeding. Fundus firm at umbilicus. The Alondra was removed without difficulty at ~6:50 AM. Ivis Gomez MD STEAM BOX OPERATOR PGY-3 09/21/2023 8:25 AM * Najma Orellana DO - 09/21/2023 8:21 AM CDT [facility] Magnesium Check Note S: Patient is feeling [...] : routine care Najma Orellana DO, PGY-2 [facility] September 21, 2023 8:21 AM * Alisa [...] in attendance. NICU and Nursery RN Negin H present. had no tone or respiratory effort, [...] Gomez MD - 09/21/2023 2:20 AM CDT [facility] Labor Progress / Magnesium Check Note S: [...] moderate variability, + accelerations, intermittent early decelerations [place]: 3-4 contractions in 10 minutes I/O: I/O [...] at times and accels present. Continuous EFM, [place]. GBS Positive - Adequately treated, continue PCN T2DM - PROGRAM MANAGEMENT PROFESSIONAL Lantus, Novolog held - Continue q1h BG and insulin gtt - Shoulder dystocia precautions discussed 09/19 Ivis Gomez MD STEAM BOX OPERATOR PGY-3 09/21/2023 2:20 AM * Brittani Gomez MD - 09/21/2023 12:00 AM CDT [facility] Labor Progress Note S: Contractions are feeling [...] 149/87 -- -- -- 98 % SVE: /1 FHT: Baseline 130, minimal to moderate variability, + accelerations, intermittent early and late decelerations [place]: 3-4 contractions in 10 minutes I/O: I/O [...] late decels (improved with repositioning). Continuous EFM, [place]. GBS Positive - Adequately treated, continue PCN T2DM - PROGRAM MANAGEMENT PROFESSIONAL Lantus, Novolog held - Continue q1h BG and insulin gtt - Shoulder dystocia precautions discussed 09/19 Ivis Gomez MD STEAM BOX OPERATOR PGY-3 09/21/2023 12:15 AM * Brittani Gomez MD - 09/20/2023 11:03 PM CDT [facility] Labor Progress Note S: Still feeling a [...] 144/82 -- -- 15 98 % SVE: /-2 FHT: Baseline 130, minimal to moderate variability, + accelerations, intermittent early decelerations [place]: 3-4 contractions in 10 minutes I/O: I/O [...] of minimal variability, accelerations present. Continuous EFM, [place]. GBS Positive - Adequately treated, continue PCN T2DM - PROGRAM MANAGEMENT PROFESSIONAL Lantus, Novolog held - Continue q1h BG and insulin gtt - Shoulder dystocia precautions discussed 09/19 Ivis Gomez MD STEAM BOX OPERATOR PGY-3 09/20/2023 11:03 PM * Brittani Gomez MD - 09/20/2023 9:35 PM CDT [facility] Labor Progress Note S: Still feeling a [...] (!) 144/82 -- -- 15 98 % 09/20/231899 (!) 157/91 -- -- -- 98 % 09/20/231849 (!) 172/85 -- -- -- 99 % 09/20/231834 -- -- -- -- 99 % 09/20/231829 (!) 150/89 -- -- -- 97 % 09/20/231814 (!) 149/83 -- -- -- 98 % 09/20/23 175 (!) 143/88 -- -- -- 97 % 09/20/23 174 (!) 144/89 -- -- -- 98 % SVE: /-2, IUPC placed FHT: Baseline 135, minimal to moderate variability, + accelerations, early decelerations [place]: 3-4 contractions in 10 minutes I/O: I/O [...] of minimal variability, accelerations present. Continuous EFM, [place]. GBS Positive - Adequately treated, continue PCN T2DM - PROGRAM MANAGEMENT PROFESSIONAL Lantus, Novolog held - Continue q1h BG and insulin gtt - Shoulder dystocia precautions discussed 09/19 Ivis Gomez MD STEAM BOX OPERATOR PGY-3 09/20/2023 9:35 PM * Gemma Snyder [...] with moderate variability, + accels, no decels [place]: 4 in 10 minutes, occasional coupling of [...] Gomez MD - 09/20/2023 7:05 PM CDT [facility] Labor Progress Note S: Feeling more pressure. [...] -- -- -- 22 99 % SVE: 5/50/-2 FHT: Baseline 125, moderate variability, + accelerations, no decelerations [place]: 3-4 contractions in 10 minutes I/O: I/O [...] FWB: Category I FHT, reactive. Continuous EFM, [place]. GBS Positive - Adequately treated, continue PCN T2DM - PROGRAM MANAGEMENT PROFESSIONAL Lantus, Novolog held - Continue q1h BG and insulin gtt - Shoulder dystocia precautions discussed 09/19 Ivis Gomez MD STEAM BOX OPERATOR PGY-3 09/20/2023 7:07 PM * Sandhya Guzman MD - 09/20/2023 5:11 PM CDT [facility] Magnesium Check Note / Labor Progress Note [...] 120, moderate variability, + accelerations, no decelerations [place]: 3-4 contractions in 10 minutes I/O: I/O [...] FWB: Category I FHT, reactive. Continuous EFM, [place]. GBS Positive - adequately treated - continue PCN T2DM - PROGRAM MANAGEMENT PROFESSIONAL lantus, novolog held - start q1h BG, initiate insulin gtt prn (ordered) - Shoulder dystocia precautions discussed 09/19 Sandhya Guzman MD STEAM BOX OPERATOR PGY-3 09/20/2023 5:12 PM * Laura Wisdom MD - 09/20/2023 1:46 PM CDT [facility] Magnesium Check Note / Labor Progress Note [...] 120, moderate variability, + accelerations, no decelerations [place]: 3-4 contractions in 10 minutes I/O: I/O [...] FWB: Category I FHT, reactive. Continuous EFM, [place]. GBS Positive - Start Penicillin T2DM - [...] Arce MD - 09/20/2023 9:20 AM CDT [facility] Magnesium Check Note / Labor Progress Note [...] periods of minimal variability, + accelerations,no decelerations [place]: 2-4 contractions in 10 minutes I/O: I/O [...] FWB: Category I FHT, reactive. Continuous EFM, [place]. GBS Positive - Start Penicillin T2DM - Insulin drip for active labor - QID glucose monitoring - Shoulder dystocia precautions provided Rody Arce MD PGY-1 09/20/23 9:20 AM documented in this encounter H&P Notes * Najma Bell MD - 09/20/2023 2:00 AM CDT [facility] OB HISTORY AND PHYSICAL Patient: Sheba Wilder Date of : 1985 HPI: Sheba Wilder is a 37 year old at 37w1d by LMP who presents as a transfer care from referral due to new diagnosis of severe preeclampsia. Sheba has presented to [facility] for induction of labor in the setting of type 2 diabetes. At the start of her induction of labor she was found to have sustained severe range blood pressures requiring a full round of IV short acting labetalol and 2 doses of hydralazine 10 mg. Due to concern for possible need for nicardipine drip, recommendations were made to transfer patient to [facility] in anticipation for possible ICU admission. [...] symptomshave been persistent despite receiving Tylenol at [facility]. Her headache is primarily located on the left frontal temporal. She denies any associating vision changes. She denies chest pain, shortness of breath, or right upper quadrant/epigastric pain. However she does report increased swelling ofher face arms and legs over the past week. She continued to have persistent contractions since receiving the news apostle at 6 PM while at [facility]. She otherwise denies LOF and vaginal bleeding. Endorses good movement. notable for: T2DM, PROGRAM MANAGEMENT PROFESSIONAL Lantus 20u qAM, NovoLog 3u/3u/3u Hx GDM x 2 prior pregnancies Severe preeclampsia, newly diagnosed Hx gHTN LGA fetus, EFW 98th percentile, AC 99th percentile H/o infant macrosomia RIVER, no meds AMA Obesity, BMI [...] lb 9 oz) F Vag-Spont ARVIN Comments: [place] 4 SAB SAB 3 SAB SAB 2 [...] AND CURETTAGE; Surgeon: Jarvis Naqvi MD; Location: [facility] Main OR TUBOPLASTY Bilateral 10/03/2021 Procedure: BILATERAL TUBAL ANASTOMOSIS; Surgeon: Tre Ba MD; Location: [place] Main OR Family History No family history [...] non-distended Ext: +1 peripheral extremity edema SVE: /-3 - Exam chaperoned by RN Membranes: Intact Presentation: Cephalic by BSUS. Estimated Weight: #8.5 FHT: Monitoring External FHT: Baseline 120 bpm; mod variability; + accels; no decelerations TOCO: 3-4 contractions in 10 minutes Studies: T&S, CBC, RPR Assessment & Plan: 37 year old at 37w1d by LMP who initially presented to [facility] for IOL for poorly controlled T2DM. However [...] the difficulty controlling pressures patient transferred to [facility] an anticipation for possible need for nicardipine gtt and ICU admission. - SSR BP x1 one admission. Will restart IV labetalol algorithm -- Did receive a total of 160 mg Labetalol at [facility] (Max: 300 mg). Will transition to Hydralazine, [...] Started on Nifedipine 60 mg qPM at [facility]. Will increase prn - Sx: Persistent MARTIN s/p tylenol. Will try Reglan/Benadryl # Type 2 Diabetes, peristently abnormal blood glucose levels # Large for Gestational Age # Mild Polyhydramnios Currently insulin controlled on Lantus 20U q AM, Novolog 3/3/3 per meals. Approximately 50% blood sugars elevated above goal levels despite continual titration of medications. She follows with [facility] endocrinology for management. ALEX 27.7 cm - Hb A1c at 25 weeks. Repeat on admission pending - Continue PROGRAM MANAGEMENT PROFESSIONAL long-acting insulin, will consider cutting dose in half if transitioning to [facility] for epidural before AM dose due. - Continue PROGRAM MANAGEMENT PROFESSIONAL Novolog 3u/3u/3u with meals. WIll hold PROGRAM MANAGEMENT PROFESSIONAL once holbrook catheter is out and transitioning [...] unfavorable. - S/p PV misoprostol x1 at [facility] for cervical ripening. Will continue this course [...] of severe preeclampsia. Sheba had presented to [facility] for induction oflabor in the setting of type 2 diabetes. At the start of her induction of labor she was found to have sustained severe range blood pressures . Due to concern for possible need for nicardipine drip, recommendations were made to transfer patient to [facility]. Sheba has a history of macrosomia [...] testing done this . She was seeing [place] [facility] for her gestational diabetes/Type 2 diabetes/pre [...] 3. She says her BG have been [id number] after her iron transfusions and 140 after she eats. She has two A1c values in [facility]: A1c=5.2 on 01/01/2018 and on 09/20/2023 her A1c=7.4 which would include her glucoses. History obtained via the patient, chart review and discussion with primary team. Additional Historian: none Patient is not known to the Inpatient Diabetes Service from past admission(s). 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 Main OR TUBOPLASTY Bilateral 10/03/2021 Procedure: BILATERAL TUBAL ANASTOMOSIS; Surgeon: Tre Ba MD; Location: [place] Main OR Social History: Social History Tobacco Use [...] Wt 86.4 kg (190 lb 7.6 oz) LMP103/05/2022 SpO2 97% Unknown BMI 35.99 kg/m?? General: [...] 134* Recent Labs Lab Test 09/22/23 0658 09/22/23 02109/21/23 23009/21/23 19309/21/23 0530 09/21/23 0522 09/20/23 0551 09/20/23 0536 09/20/23 0010 [...] interval not displayed. Recent Labs Lab Test 09/21/2352109/20/23203328/24 0536 PROTTOTAL -- -- 6.4 ALBUMIN -- -- [...] values to primary care or back to [facility]. Get A1c in 4-6 weeks Discussion: Unclear after speaking with Sheba that she has a known diagnosis of Type 2 diabetes. No access to [place] end[facility]ology records. BG running from 132 to 186 yesterday post delivery off the insulin drip.[id number] this am. Could start low dose metformin 500 mg po bid or could just monitor bg for2 weeks with Georgie 3 and follow up with PCP/[facility]. Sheba says she will not breast feed. Discussed if she did that metformin passes through the breast milk and no terminal gauger supervisor studies. Stop metformin if develops nausea or vomiting or diarrhea. She will place Georgie 3 back on and continue to monitor BG twice daily and follow up with either PCP or [place] [facility]. Discharge Planning: (tentative) Medications: TBD Test [...] status. Gemma Huston PA-C Inpatient Diabetes Service [phone] Vocera To contact Inpatient Diabetes Service: 7 AM - 5 PM: Page the IDS VINNY following the patient that day (see filed or incomplete progress notes/consult notes under Endocrinology) OR if uncertain of provider assignment: page job code [phone] 5 PM - 7 AM: First call after hours is to primary service. For urgent after-hours questions, page job code for control clerk auditing fellow: [phone] I spent a total of [...] CNS - 09/22/2023 12:46 PM CDTAssociated Order(s): SIDE LASTER TACK DIABETES IP CONSULT Diabetes SIDE LASTER TACK consult received for Sheba Wilder, age 37, at 37w1d by LMP who presented as a transfer of care from referral due to new diagnosis of severe preeclampsia. Sheba had presented to [facility] for induction of labor in the setting of type 2 diabetes. At the start of her inductionof labor she was found to have sustained severe range blood pressures . Due to concern for possibleneed for nicardipine drip, recommendations were made to transfer patient to [facility]. Sheba has a history of macrosomia with first and gestational diabetes that was not treated with insulin or diabetes meds. There is a note discussing 2013 that she failed her 1 hr OGGT but due to n,v she did not have a 3 hour OGTT. She watched her diet with baby #5 in 2014. She was placed on insulin she believes in July 2023 due to elevated blood glucose. She is not aware of any OGTT testing done this . She was seeing [place] [facility] for her gestational diabetes/Type 2 diabetes/pre [...] 140 after she eats. She has two [id number] in [facility]: A1c=5.2 on 01/01/2018 and on 09/20/2023 her [...] discontinued. Initiating Metformin. Aida Shane APRN Diabetes EULOGIO/DAVE La documented in this encounter Miscellaneous Notes * Plan of Care - Ina Swan RN - 09/23/2023 7:38 PM CDT Goal Outcome Evaluation: Data: Vital signs within normal limits. checks within normal limits - see flow record. Patient eating and drinking normally. Patient able to empty bladder independently and is up ambulating. No apparent signs of infection. laceration healing well. Patient performing self cares and is able to care for . Action: Patient medicated during the shift for pain. See MAR. Patient reassessed within 1 hour after each medication and pain was improved - patient stated she was comfortable. Patient education doneabout discharge teaching and instructions, DC medications for mother reviewed, bands checked, HOPE-BP program set-up and BP cuff use, demo and eduction done. See flow record. Response: Positive attachment behaviors observed with . Support persons FOB present. * Plan of Care - Ina Swan RN - 09/23/2023 3:30 PM CDT Goal Outcome Evaluation: Stable mother that got another unit of PRBC's today. Her IV went bad with about 20cc left, so didn't finish the whole bag. Continue with plan of care and discharge per orders. * Plan of Care - Sandhya Jimenez RN - 09/23/2023 5:14 AM CDT Data: Vital signs within normal limits. checks within normal limits - see flow record. Patient eating and drinking normally. Patient able to empty bladder independently and is up ambulating. Patient performing self cares and is able to care for infant. Action: Patient medicated during the shift for pain. See MAR. Patient reassessed after each medication and patient stated she was comfortable. See flow record. Response: Positive attachment behaviors observed with infant. Significant other Ortega present. Plan: Continue to follow care plan. * Plan of Care - Luana Hui RN - 09/22/2023 11:25 PM CDT Goal Outcome Evaluation: Data: Vital signs within normal limits. checks within normal limits - see flow record. Patient eating and drinking normally. Patient able to empty bladder independently and is up ambulating. No apparent signs of infection. . Patient performing self cares and is able to care for infant. Action: Patient medicated during the shift for cramping. See MAR. Patient reassessed within 1 hour after each medication and pain was improved - patient stated she was comfortable. Response: Positive attachment behaviors observed with . Support persons family present. Plan: Anticipate discharge on 09/22. * Plan of Care - Ivis Oconnell JD - 09/22/2023 5:08 PM CDT Goal Outcome [...] too tired to ambulate. Bonding well with infant. Formula feeding every 2-3 hours. Pain managed [...] Quinn RN - 09/21/2023 7:50 PM CDT [id number]: VSS and assessments WDL. Pt on continuous magnesium sulfate infusion and feeling very dizzy, drowsy and weak. Sleeping between cares and assessments. Using gabby steady to and from bathroom. Pt reports blurry vision but denies spots or flashes in her vision. She also denies headache, RUQ pain or SOB. Did [id number] with infant briefly, but unable to do much else [...] 09/21/2023 2:10 PM CDT Patient arrived to [facility] unit via wheelchair at 1103 ,with belongings, [...] patient, spouse Data: Sheba Wilder transferred to [facility] via wheelchair at 1045. Baby transferred via [...] to sliding scale with breakfast meal. * L&D Delivery Note - Gemma Snyder MD - 09/21/2023 8:18 AM CDT OB Vaginal Delivery Note Sheba Wilder Age: [age] year old Date of : 1985 GA: 37w2d GP: Labor Complications: Hemorrhage EBL: mL Delivery QBL: 10 mL Delivery Type: Vaginal, Spontaneous ROM to Delivery Time: (Delivered) Hours: 10 Minutes: 24 Fowler Weight: 4.394 kg (9 lb 11 oz) 1 Minute 5 Minute 10 Minute Totals: 3 3 8 BRITTANI GOMEZ;ALISA LUBIN;NEGIN CROFT;OLAMIDE BAUMANN Delivery Details: Sheba Wilder is a 37 year old now at 37w2d, admitted for IOL for PreE with severe features as transfer of care from [place]. She received an epidural for pain. She received misoprostol for cervical ripening. Labor was augmented with Pitocin and AROM. She was GBS positive and received adequate antibiotic prophylaxis. She progressed to complete and pushed for 13 minutes. Infant delivered LANNY. A shoulder dystocia was identified at time of delivery. The patient was placed in Marlee position and suprapubic pressure was applied, without resolution. The posterior (left) arm was then delivered. The total time of the shoulder dystocia was 1 minute. Infant had poor tone, and the cord was immediately clamped and cut. The infant was handed off to the NICU staff. Apgars 3, 3, and 8 at 1, 5, and 10 minutes. Weight 4394 grams. Cord gases were as below: Latest Reference Range & Units 09/21/23 03:32 Ph Cord Arterial 7.16 - 7.39 7.19 PCO2 Cord Arterial 35 - 71 mm Hg 66 PO2 Cord Arterial 10 - 33 mm Hg 23 Bicarbonate Cord Arterial 16 - 24 mmol/L 25 (H) Base Excess/Deficit >-10.0 - -2.0 mmol/L -4.9 Ph Cord Blood Venous 7.21 - 7.45 7.28 PCO2 Cord Venous 27 - 57 mm Hg 49 PO2 Cord Venous 21 - 37 mm Hg 33 Bicarbonate Cord Venous 16 - 24 mmol/L 23 Base Excess/Deficit Cord Venous >-10.0 - -2.0 mmol/L -4.4 (H): Data is abnormally high Placenta delivered with gentle cord traction, and noted to be intact with 3 vessel cord. She sustained a 1st degree perineal laceration, which was repaired with a figure of X using 3-0 Vicryl. Her delivery was complicated by a hemorrhage. She received IV Pitocin, buccal misoprostol, IM Hemabate, and IV TXA. There was persistent lower uterine segment atony with evacuation of a large amount of clot on lower uterine segment sweep. A Alondra was placed. Bleeding was subsequently stable. [id number] mL Dr. Snyder was present for the entire delivery. Ivis Gomez MD STEAM BOX OPERATOR PGY-3 09/21/2023 8:18 AM I was present and assisted throughout the delivery, I preformed the delivery of the posterior arm and delivery of the infant. I was present for the management of the hemorrhage and placement of the Alondra device. I agree with the note above. Gemma Snyder MD Usama Wilder [[id number]] Labor Event Times Latent labor onset date/time: 09/20/2023 170 Active labor onset date: 09/20/23 Onset time: 10:30 PM Dilation complete date: 09/21/23 Complete time: 3:10 AM Start pushing date/time: 09/21/2023 0311 Labor Length 1st Stage (hrs): 4 (min): 40 2nd Stage (hrs): 0 (min): 14 3rd Stage (hrs): 0 (min): 7 Labor Events labor?: No steroids: None Labor Type: Induction/Cervical ripening, AROM Predominate monitoring during 1st stage: continuous electronic monitoring Antibiotics received during labor?: Yes Reason for Antibiotics: GBS Antibiotics received for GBS: Penicillin Antibiotics Given (GBS): Greater than 4 hours prior to delivery Rupture date/time: 09/20/231699 Rupture type: Artificial Rupture of Membranes Fluid color: Clear Induction: Misoprostol Induction date/time: Cervical ripening date/time: Indications for induction: Severe Preeclampsia Augmentation: Oxytocin, AROM Delivery/Placenta Date and Time Delivery Date: 09/21/23 Delivery Time: 3:24 AM Placenta Date/Time: 09/21/2023 3:31 AM Oxytocin given at the time of delivery: after delivery of baby Delivering clinician: Gemma Synder MD Other personnel present at delivery: Provider Role Brittani Gomez MD Resident Alisa Lubin RN Delivery Nurse Negin Croft RN Registered Nurse Olamide Baumann APRN AUTO GARAGE ATTENDANT Nurse Practitioner Vaginal Counts Initial count performed by 2 team members: Two Team Members JD Cruz MD Energy Suture Energy Sponges (RETIRED) Instruments Initial counts 2 5 Added to count 1 Relief counts Final counts 2 1 5 Placed during labor Accounted for at the end of labor FSE NA NA IUPC Yes Yes Cervidil NA NA Final count performed by 2 team members: Two Team Members JD Cruz MD Final count correct?: Yes Pre- Team Brief: Complete Post- Team Debrief: Complete Apgars Living status: Living 1 Minute 5 Minute 10 Minute 15 Minute 20 Minute Skin color: 1 1 1 1 Heart rate: 2 2 2 2 Reflex irritability: 0 0 2 2 Muscle tone: 0 0 1 1 Respiratory effort: 0 0 2 2 Total: 3 3 8 8 Apgars assigned by: ALYSIA HDZ Cord Vessels: 3 Vessels Cord Complications: Nuchal Nuchal Intervention: delivered through Gases Sent?: Yes Delayed cord clamping?: No Stem cell collection?: No Resuscitation Methods: Oxygen, NCPAP, Oximetry, Ander Puff Care at Delivery: Asked by Dr. Snyder to attend the delivery of this term, male infant witha gestational age of 37 2/7 weeks secondary to LGA, shoulder dystocia. 0 seconds of delayed cord clamping were completed. The had no effort or tone upon , cord clamped and brought to warmer immediately. PPV 25/5 100% FiO2 started immediately. Infant had an undetectable HR on auscultation x 2 or pulse at the umbilicus. MR SOPA performed and HR >100 quickly. gained intermittent respiratory effort around 3 minutes of life. Infant required PPV for 7 minutes, able to wean FiO2 to 21%. Infants tone and reflex improved slowly. Transitioned to CPAP at 7 minutes of life and continued until 15 minutes of life. Transitioned to room air without any WOB. Gross PE is WNL except for large a large caput, preferential placement of the left arm straight up over head with edema around the shoulder but no obvious fractures, decreased movement in the right arm, uneven hola response, and bruising, no suck response but was crying during exam. Infant required no further resuscitation. Handoff to L&D nurseand will stay with mom and dad. Discussed need for SARNAT scoring with parents and gave info about therapeutic hypothermia. Olamide Baumann APRN, ALYSIA- 09/21/23, 4:11 AM Advanced Practice Providers [facility] Measurements Weight: 9 lb 11 oz Length: 1' 7 Head circumference: 34.3 cm Skin to Skin and Feeding Plan Skin to skin initiation date/time: Skin to skin end date/time: Reason skin to skin not initiated: Patient Refused Labor Events and Shoulder Dystocia Shoulder dystocia present?: Pos Anterior shoulder: left Time body delivered: 0324 CDT Time head delivered: 032 CDT First Maneuver: Marlee maneuver Time performed: 09/21/2023322 Second Maneuver: Second maneuver: Delivery of the posterior arm Time performed: 09/21/2023323 Delivery (Maternal) (Provider to Complete) ([id number]) Episiotomy: None Perineal lacerations: 1st Repaired?: Yes Repair suture: 3-0 Vicryl Genital tract inspection done: Pos Blood Loss Mother: Sheba Wilder #[id number] Start of Mother's Information Delivery Blood Loss 09/20/23 2230 - 09/21/23 0818 Delivery QBL (mL) Hospital Encounter 1080 mL Total 1080 mL End of Mother's Information Mother: Sheba Wilder #[id number] Delivery - Provider to Complete ([id number]) Delivering clinician: Gemma Snyder MD Delivery Type (Choose the 1 that will go to the History): Vaginal, Spontaneous Other personnel: Provider Role Brittani Gomez MD Resident Alisa Lubin, professor of legal studies Nurse Negin Croft RN Registered Nurse Olamide Baumann APRN AUTO GARAGE ATTENDANT Nurse Practitioner Placenta Date/Time: 09/21/2023 3:31 AM Removal: Expressed Disposition: Hospital disposal Anesthesia Method: Epidural Cervical dilation at placement: 4-7 Presentation and Position Presentation: Vertex Position: Left Occiput Anterior Brittani Gomez MD * Provider Notification - Alisa Lubin RN [...] Notification Electronic Page Notification Reason Lab/Diagnostic Study notified mag level at 6.5 * Provider Notification - Keisha Moran RN - 09/20/2023 5:38 PM CDT 09/20/23 1653 Provider Notification Provider Name/Title dr. Guzman Method of Notification At Bedside Request Evaluate in Person Notification Reason Maternal Vital Sign Change;Other (Comment) Provider paged at [phone] to assess pt following pt reporting headache [...] in use q4hrs. Last SVE at 0915: 4/30/-2. Patient comfortable with epidural. Intermittent MARTIN, prn [...] 2-7 minutes. FHT's category one. Cerivix exam: 4, 30, -2. Interventions: Pitocin induction/augmentation orders obtained. [...] placement), w/AGA accels and no decels. Fasting FB=[id number]; administering Lantus now per provider. Patient has verbalized understanding of teachings in regards to labor process and s/sx's to report to team, as well as agreement w/current plan of care. Report given to Quita Fulton RN at 0715 and odette relinquished. Nancy Zee RN on 09/20/2023 at 7:22 AM * Provider Notification - Nancy Zee RN - 09/20/2023 3:57 AM CDT 09/20/23 0354 Provider Notification Provider Name/Title Dr. Mabry Method of Notification Electronic Page Notification Reason Other (Comment) (elevated BP) 50 minutes after 40 mg IV labetalol administered, BP back up to 160/81. BP's have been ranging fsic357's-140's/80's-90's. Neuros WNL and MARTIN improving per patient; [...] lb 9 oz) F Vag-Spont ARVIN Comments: [place] 4 SAB SAB 3 SAB SAB 2 SAB SAB 1 Term ARVIN . Medical History: Preeclampsia w/severe features, T2DM, anemia, LGA, polyhydramnios, PPH w/transfusion. Gestational age 37w1d. Vital signs per doc flowsheet. movement present. Patient reports Pre-Eclampsia as reason for admission/transfer from [facility]. Support persons Ortega (SO) and Ly (mother) present. Action: Report received from [place] RN at 1128. Verbal consent for EFM, external monitorsapplied. Admission [...] Reyna MD Method of Notification Electronic Page Credit Support Counselor sent page to Dr Reyna at [phone] Burgos, regarding consult from [facility] about pt, , 37.0 IOL for unctrl T2DM, lga/poly. Cervix 1 cm. Having SRBP, new dx of pre-e w/ SF,on magnesium sulfate at 2g/hr. Labetalol, hydralazine and nifed given per their protocols. Dr Reyna accepted transfer, and pt to be transferred to L&D via ambulance. Dr Reyna notified Dr Sarah Bell of pending arrival and mortgage underwriter notified Dr Mabry (G3) of pending arrival. documented in this encounter Plan of Treatment Pending Results Name Type Priority Associated Diagnoses Date /Time Prepare red blood cells (unit) Blood Bank Routine 09/23/2023 8:28 AM CDT Scheduled Referrals Name Type Priority Associated Diagnoses Orde r Schedule Home Care Referral Referral Routine: Next available opening (spontaneous vaginal delivery) Ordered: 09/23/2023 documented as of this encounter Procedures Procedure [...] CDT documented in this encounter Results * Transfuse red blood cells (unit) (09/23/2023 6:29 PM CDT) Najma Orellana DO BLOOD TRANSFUSION OR DERABLES * Transfuse red blood cells (unit), 1 Units (09/23/2023 6:29 PM CDT) Najma Orellana DO BLOOD TRANSFUSION OR DERABLES * (ABNORMAL) Glucose by meter (09/23/2023 2:42 PM CDT) GLUCOSE BY METER POCT 107(H) 70 - 99 mg/dL 09/23/2023 2:50 PM CDT UR LABORATORY POC Comment:Dr/RN Notified Blood, Capillary BLOOD SPECIMEN / Unknown 09/23/2023 2:42 PM CDT 09/23/2023 2:50 PM CDT Najma Bell MD [facility] UR LABORATORY POC [facility] Care Lab [address], [address] [place] [address] * (ABNORMAL) Hemoglobin (09/23/2023 6:38 AM CDT) Hemoglobin 7.1(L) 11.7 - 15.7 g/dL 09/23/2023 7:13 AM CDT UR LABORATORY Blood BLOOD SPECIMEN / Unknown Venipuncture / Unknown 09/23/2023 6:38 AM CDT 09/23/2023 7:09 AM CDT Gemma Snyder MD LAB - BLOOD ORDERABL ES UR LABORATORY [facility] [address] [place] [address], [address] [phone] * Glucose by meter (09/23/2023 3:21 AM CDT) GLUCOSE BY METER POCT 92 70 - 99 mg/dL 09/23/2023 3:27 AM CDT UR LABORATORY POC Blood, Capillary BLOOD SPECIMEN / Unknown 09/23/2023 3:21 AM CDT 09/23/2023 3:27 AM CDT Najma JOHNSON - BEGERMÁN [facility] Performing Organization Address City/[facility]/ZIP Co de Phone Number UR LABORATORY POC [facility] [address] [place] [address], [address] [phone] * (ABNORMAL) Glucose by meter (09/22/2023 10:50 PM CDT) GLUCOSE BY METER POCT 160(H) 70 - 99 mg/dL 09/22/2023 10:57 PM CDT UR LABORATORY POC Comment:Dr/RN Notified Blood, Capillary BLOOD SPECIMEN / Unknown 09/22/2023 10:50 PM CDT 09/22/2023 10:57 PM CDT Najma JOHNSON - BEGERMÁN CT Performing Organization Address City/[facility]/ZIP Co de Phone Number UR LABORATORY POC [facility] Lab [address] [place] [address], [address] [phone] * (ABNORMAL) Hemoglobin (09/22/2023 10:31 PM CDT) Hemoglobin 7.1(L) 11.7 - 15.7 g/dL 09/22/2023 10:52 PM CDT UR LABORATORY Blood STRUCTURE OF RIGHT UPPER LIMB / Unknown Venipuncture / Unknown 09/22/2023 10:31 PM CDT 09/22/2023 10:49 PM CDT Najma Bell MD LAB - BLOOD ORD ERABLES UR LABORATORY [facility] Lab [address] [place] [address], [address] * (ABNORMAL) Glucose by meter (09/22/2023 6:06 PM CDT) GLUCOSE BY METER POCT 137(H) 70 - 99 mg/dL 09/22/2023 6:12 PM CDT UR LABORATORY POC Blood, Capillary BLOOD SPECIMEN / Unknown 09/22/2023 6:06 PM CDT 09/22/2023 6:12 PM CDT Najma Bell MD LAB - BEAKER PO CT UR LABORATORY POC [facility] Lab [address] [place] [address], [address] * Transfuse red blood cells (unit) [...] - BEGERMÁN WIL[address] CT Performing Organization Address City/[facility]/ZIP Co de Phone Number UR LABORATORY POC [facility] Lab [address] [place] [address], Room [place] [phone] * (ABNORMAL) Hemoglobin (09/22/2023 8:02 AM CDT) Hemoglobin 6.3(LL) 11.7 - 15.7 g/dL 09/22/2023 9:07 AM CDT UR LABORATORY Blood STRUCTURE OF LEFT UPPER LIMB / Unknown Venipuncture / Unknown 09/22/2023 8:02 AM CDT 09/22/2023 8:45 AM CDT Brittani Gomez MD LAB - BLOOD ORDERABL ES Performing Organization Address City/[facility]/ZIP Co de Phone Number UR LABORATORY [facility] [address] [place] [address], [address] * (ABNORMAL) Glucose by meter (09/22/2023 6:58 AM CDT) GLUCOSE BY METER POCT 140(H) 70 - 99 mg/dL 09/22/2023 7:05 AM CDT UR LABORATORY POC Blood, Capillary BLOOD SPECIMEN / Unknown 09/22/2023 6:58 AM CDT 09/22/2023 7:05 AM CDT Najma JOHNSON - MATT WIL[address] CT UR LABORATORY POC [facility] Care Lab [address] [place] [address], [address] [phone] * (ABNORMAL) Glucose by meter (09/22/2023 2:18 AM CDT) GLUCOSE BY METER POCT 186(H) 70 - 99 mg/dL 09/22/2023 2:24 AM CDT UR LABORATORY POC Blood, Capillary BLOOD SPECIMEN / Unknown 09/22/2023 2:18 AM CDT 09/22/2023 2:24 AM CDT Najma Bell MD LAB - BEGERM[facility]N WIL[address] CT UR LABORATORY POC [facility] Acute Care Lab [facility], [address] [phone] * (ABNORMAL) Glucose by meter (09/21/2023 11:09 PM CDT) GLUCOSE BY METER POCT 161(H) 70 - 99 mg/dL 09/21/2023 11:16 PM CDT UR LABORATORY POC Blood, Capillary BLOOD SPECIMEN / Unknown 09/21/2023 11:09 PM CDT 09/21/2023 11:16 PM [address]T [address]ma [address] Performing Organization Address City/[facility]/ZIP Co de Phone Number UR LABORATORY POC [facility] Lab [address] [place] [address], [address] [phone], [facility] * Creatinine (09/21/2023 7:36 PM CDT) Creatinine [...] LAB - BLOOD ORDERABL ES UR LABORATORY [facility] Lab [address] [place] [address], [address] [phone], [facility] * (ABNORMAL) Glucose by meter (09/21/2023 6:11 PM CDT) GLUCOSE BY METER POCT 132(H) 70 - 99 mg/dL 09/21/2023 6:18 PM CDT UR LABORATORY POC Blood, Capillary BLOOD SPECIMEN / Unknown 09/21/2023 6:11 PM CDT 09/21/2023 6:18 PM CDT [facility]aj[facility] UR LABORATORY POC [facility] Lab [address] [place] [address], Room [place] [phone] * (ABNORMAL) Glucose by meter (09/21/2023 10:41 AM CDT) GLUCOSE BY METER POCT 147(H) 70 - 99 mg/dL 09/21/2023 10:49 AM CDT UR LABORATORY POC Comment:/JD Notified Blood, Capillary BLOOD SPECIMEN / Unknown 09/21/2023 10:41 AM CDT 09/21/2023 10:49 AM CDT Najma JOHNSON - GERMÁN [facility] Performing Organization Address City/[facility]/ZIP Co de Phone Number UR LABORATORY POC [facility] [address] [place] [address], Room [place] [phone] * (ABNORMAL) Glucose by meter (09/21/2023 9:31 AM CDT) GLUCOSE BY METER POCT 125(H) 70 - 99 mg/dL 09/21/2023 9:38 AM CDT UR LABORATORY POC Comment:/JD Notified Blood, Capillary BLOOD SPECIMEN / Unknown 09/21/2023 9:31 AM CDT 09/21/2023 9:38 AM CDT Najma JOHNSON - MATT [facility] UR LABORATORY POC [facility] Lab [address] [place] [address], [address] * (ABNORMAL) Glucose by meter (09/21/2023 8:37 AM CDT) GLUCOSE BY METER POCT 124(H) 70 - 99 mg/dL 09/21/2023 9:15 AM CDT UR LABORATORY POC Comment:/RN Notified Blood, Capillary BLOOD SPECIMEN / Unknown 09/21/2023 8:37 AM CDT 09/21/2023 9:15 AM CDT Najma Bell MD [facility] UR LABORATORY POC [facility] Lab [address] [place] [address], [address] * (ABNORMAL) Glucose by meter (09/21/2023 7:38 AM CDT) GLUCOSE BY METER POCT 152(H) 70 - 99 mg/dL 09/21/2023 7:45 AM CDT UR LABORATORY POC Comment:/JD Notified Blood, Capillary BLOOD SPECIMEN / Unknown 09/21/2023 7:38 AM CDT 09/21/2023 7:45 AM CDT Najma Bell MD [facility] UR LABORATORY POC [facility] [address] [place] [address], [address] * (ABNORMAL) Glucose by meter (09/21/2023 6:35 AM CDT) GLUCOSE BY METER POCT 198(H) 70 - 99 mg/dL 09/21/2023 6:45 AM CDT UR LABORATORY POC Blood, Capillary BLOOD SPECIMEN / Unknown 09/21/2023 6:35 AM CDT 09/21/2023 6:45 AM CDT LauraPatt GUTIERREZ POCT UR LABORATORY POC [facility] Lab [address], [address] [phone] * (ABNORMAL) Glucose by meter (09/21/2023 5:30 AM CDT) GLUCOSE BY METER POCT 226(H) 70 - 99 mg/dL 09/21/2023 5:44 AM CDT UR LABORATORY POC Blood, Capillary BLOOD SPECIMEN / Unknown 09/21/2023 5:30 AM CDT 09/21/2023 5:44 AM CDT Laura GUTIERREZ POCT UR LABORATORY POC [facility] Lab [address], [address] [phone] * Hepatitis B surface antigen (09/21/2023 5:22 AM CDT) Hepatitis B Surface Antigen Nonreactive Nonreactive 09/22/2023 9:07 AM CDT [facility] LABORATORY Blood STRUCTURE OF RIGHT UPPER LIMB / Unknown Venipuncture / Unknown 09/21/2023 5:22 AM CDT 09/21/2023 5:34 AM CDT Kayden Lee MD LAB - BLOOD ORDER PARKER [facility] LABORATORY [facility] Lab [address] [facility], [address] [place] [address] * (ABNORMAL) Creatinine (09/21/2023 5:22 AM CDT) Creatinine 0.96(H) 0.51 - 0.95 mg/dL 09/21/2023 6:02 AM CDT UR LABORATORY GFR Estimate 79 >60 mL/min/1.7 3m2 09/21/2023 6:02 AM CDT UR LABORATORY Comment:eGFR calculated usin g 2020 CKD-EPI equation. Blood STRUCTURE OF RIGHT UPPER LIMB / Unknown Venipuncture / Unknown 09/21/2023 5:22 AM CDT 09/21/2023 5:34 AM CDT Brittani Gomez MD LAB - BLOOD ORDERABL ES UR LABORATORY [facility] Lab [address], [address] [place] [address] * (ABNORMAL) CBC with platelets (09/21/2023 5:22 [...] LAB - BLOOD ORDERABL ES UR LABORATORY [facility] Acute Care Lab [facility], [address] [place] [phone] [place] [address] * AST (09/21/2023 5:22 AM CDT) AST 26 0 - 45 U/L 09/21/2023 6:0 2 AM CDT UR LABORATORY Blood STRUCTURE OF RIGHT UPPER LIMB / Unknown Venipuncture / Unknown 09/21/2023 5:22 AM CDT 09/21/2023 5:34 AM CDT Brittani Gomez MD LAB - BLOOD ORDERABL ES UR LABORATORY [facility] [address] [place] [address], Room [place] [phone] [place] [address] * ALT (09/21/2023 5:22 AM CDT) ALT 20 0 - 50 U/L 09/21/2023 6:0 2 AM CDT UR LABORATORY Blood STRUCTURE OF RIGHT UPPER LIMB / Unknown Venipuncture / Unknown 09/21/2023 5:22 AM CDT 09/21/2023 5:34 AM CDT Brittani Gomez MD LAB - BLOOD ORDERABL ES UR LABORATORY [facility] [address] [place] [address], [place] [address] [place] [address] * (ABNORMAL) Glucose by meter (09/21/2023 4:28 AM CDT) GLUCOSE BY METER POCT 169(H) 70 - 99 mg/dL 09/21/2023 5:30 AM CDT UR LABORATORY POC Blood, Capillary BLOOD SPECIMEN / Unknown 09/21/2023 4:28 AM CDT 09/21/2023 5:30 AM CDT Laura Wisdom MD LAB - BEAKER POCT UR LABORATORY POC [facility] [address] [place] [address], Room [address] [address] [place] * (ABNORMAL) Glucose by meter (09/21/2023 2:31 AM CDT) GLUCOSE BY METER POCT 131(H) 70 - 99 mg/dL 09/21/2023 2:41 AM CDT UR LABORATORY POC Blood, Capillary BLOOD SPECIMEN / Unknown 09/21/2023 2:31 AM CDT 09/21/2023 2:41 AM CDT Laura GUTIERREZ POCT UR LABORATORY POC [facility] [address] [place] [address], Room [address] [address] [place] * (ABNORMAL) Glucose by meter (09/21/2023 1:29 AM CDT) GLUCOSE BY METER POCT 104(H) 70 - 99 mg/dL 09/21/2023 1:38 AM CDT UR LABORATORY POC Blood, Capillary BLOOD SPECIMEN / Unknown 09/21/2023 1:29 AM CDT 09/21/2023 1:38 AM CDT Laura GUTIERREZ POCT UR LABORATORY POC [facility] [address] [place] [address], Room [address] [address] [place] * (ABNORMAL) Glucose by meter (09/21/2023 12:30 AM CDT) GLUCOSE BY METER POCT 122(H) 70 - 99 mg/dL 09/21/2023 12:40 AM CDT UR LABORATORY POC Blood, Capillary BLOOD SPECIMEN / Unknown 09/21/2023 12:30 AM CDT 09/21/2023 12:40 AM CDT Laura GUTIERREZ POCT Performing Organization Address City/[facility]/ZIP Co de Phone Number UR LABORATORY POC [facility] [address] [place] [address], Room [address] [address] [place] * (ABNORMAL) Glucose by meter (09/20/2023 11:29 PM CDT) GLUCOSE BY METER POCT 147(H) 70 - 99 mg/dL 09/20/2023 11:38 PM CDT UR LABORATORY POC Blood, Capillary BLOOD SPECIMEN / Unknown 09/20/2023 11:29 PM CDT 09/20/2023 11:38 PM CDT Laura GUTIERREZ POCT Performing Organization Address City/[facility]/ZIP Co de Phone Number UR LABORATORY POC [facility] [address] [place] [address], Room [address] [address] [place] * (ABNORMAL) Glucose by meter (09/20/2023 10:33 PM CDT) GLUCOSE BY METER POCT 120(H) 70 - 99 mg/dL 09/20/2023 10:44 PM CDT UR LABORATORY POC Blood, Capillary BLOOD SPECIMEN / Unknown 09/20/2023 10:33 PM CDT 09/20/2023 10:44 PM CDT Laura GUTIERREZ POCT UR LABORATORY POC [facility] [address] [place] [address], Room [address] [phone] [place] * (ABNORMAL) Glucose by meter (09/20/2023 9:35 PM CDT) GLUCOSE BY METER POCT 157(H) 70 - 99 mg/dL 09/20/2023 10:38 PM CDT UR LABORATORY POC Blood, Capillary BLOOD SPECIMEN / Unknown 09/20/2023 9:35 PM CDT 09/20/2023 10:38 PM CDT Laura Wisdom MD LAB - BEAKER POCT UR LABORATORY POC [facility] Lab [address], [address] [place] [address], [facility] * RBC and Platelet Morphology [...] Crystals 09/20/2023 9:26 PM CDT UR LABORATORY [place] Bodies 09/20/2023 9:26 PM CDT UR LABORATORY [...] LAB - BLOOD ORDERABL ES UR LABORATORY [facility] [address] [place] [address], Room [address] * (ABNORMAL) Glucose by meter (09/20/2023 8:34 PM CDT) GLUCOSE BY METER POCT 145(H) 70 - 99 mg/dL 09/20/2023 8:47 PM CDT UR LABORATORY POC Blood, Capillary BLOOD SPECIMEN / Unknown 09/20/2023 8:34 PM CDT 09/20/2023 8:47 PM CDT Laura Wisdom MD LAB - BEAKER POCT Performing Organization Address City/[facility]/ZIP Co de Phone Number UR LABORATORY POC [facility] [address] [place] [address], Room [address] * Creatinine (09/20/2023 8:34 PM CDT) Creatinine [...] LAB - BLOOD ORDERABL ES UR LABORATORY [facility], Room [address] [address], [place] * ALT (09/20/2023 8:34 PM CDT) Pathologist [facility] ALT 19 0 - 50 U/L 09/20/2023 9:0 0 PM CDT UR LABORATORY Blood STRUCTURE OF LEFT UPPER LIMB / Unknown Venipuncture / Unknown 09/20/2023 8:34 PM CDT 09/20/2023 8:39 PM CDT Brittani Gomez MD LAB - BLOOD ORDERABL ES UR LABORATORY [facility] [address] [place] [address], Room [place] [phone] * AST (09/20/2023 8:34 PM CDT) Pathologist [facility] AST 24 0 - 45 U/L 09/20/2023 9:0 0 PM CDT UR LABORATORY Blood STRUCTURE OF LEFT UPPER LIMB / Unknown Venipuncture / Unknown 09/20/2023 8:34 PM CDT 09/20/2023 8:39 PM CDT Brittani Gomez MD LAB - BLOOD ORDERABL ES UR LABORATORY [facility] [address] [place] [address], Room [place] [phone] * (ABNORMAL) CBC with platelets (09/20/2023 8:34 PM CDT) Pathologist [facility] WBC Count 8.9 4.0 - 11.0 10e3/uL [...] LAB - BLOOD ORDERABL ES UR LABORATORY [facility] [address] [place] [address], Room [address] * (ABNORMAL) Glucose by meter (09/20/2023 7:29 PM CDT) GLUCOSE BY METER POCT 129(H) 70 - 99 mg/dL 09/20/2023 7:47 PM CDT UR LABORATORY POC Blood, Capillary BLOOD SPECIMEN / Unknown 09/20/2023 7:29 PM CDT 09/20/2023 7:47 PM CDT Laura Wisdom MD LAB - BEAKER POCT UR LABORATORY POC [facility] [address] [place] [address], Room [address] * (ABNORMAL) Glucose by meter (09/20/2023 6:33 PM CDT) GLUCOSE BY METER POCT 123(H) 70 - 99 mg/dL 09/20/2023 6:42 PM CDT UR LABORATORY POC Blood, Capillary BLOOD SPECIMEN / Unknown 09/20/2023 6:33 PM CDT 09/20/2023 6:42 PM CDT Laura Tariq BEGERMÁN POCT UR LABORATORY POC [facility] [address] [place] [address], Room [address] [phone] [place] * (ABNORMAL) Glucose by meter (09/20/2023 5:27 PM CDT) GLUCOSE BY METER POCT 118(H) 70 - 99 mg/dL 09/20/2023 6:38 PM CDT UR LABORATORY POC Blood, Capillary BLOOD SPECIMEN / Unknown 09/20/2023 5:27 PM CDT 09/20/2023 6:38 PM CDT Laura JOHNSON - BEGERMÁN POCT UR LABORATORY POC [facility] [address] [place] [address], Room [address] [address] [place] * (ABNORMAL) Magnesium (09/20/2023 5:11 PM CDT) Magnesium 6.5(H) 1.7 - 2.3 mg/dL 09/20/2023 5:39 PM CDT UR LABORATORY Blood STRUCTURE OF LEFT UPPER LIMB / Unknown Venipuncture / Unknown 09/20/2023 5:11 PM CDT 09/20/2023 5:14 PM CDT Brittani Gomez MD LAB - BLOOD ORDERABL ES UR LABORATORY [facility] [address] [place] [address], Room [address] [phone] [place] * Prepare red blood cells (unit) (09/20/2023 7:51 AM CDT) Blood Component Type Red Blood Cells UR BLOOD BANK Product Code [id number] UR BLOO D BANK Unit Status Transfused UR BLOO D BANK Unit Number [id number] UR B LOOD BANK CROSSMATCH Compatible UR BLOOD BANK CODING SYSTEM [id number] UR BLO OD BANK ISSUE DATE AND TIME [id number] UR BLOOD BANK UNIT ABO/RH A- UR BLOOD BANK UNIT TYPE ISBT 0600 UR BL OOD BANK 09/20/2023 7:51 AM CDT Cecy Mabry MD BLOOD BANK PRODUCT O RDERABLES UR BLOOD BANK [facility] Lab [address] [place] [address], Room [address] * Prepare red blood cells (unit) (09/20/2023 7:51 AM CDT) Blood Component Type Red Blood Cells UR BLOOD BANK Product Code [id number] UR BLOO D BANK Unit Status Transfused UR BLOO D BANK Unit Number [id number] UR B LOOD BANK CROSSMATCH Compatible UR BLOOD BANK CODING SYSTEM [id number] UR BLO OD BANK ISSUE DATE AND TIME [id number] UR BLOOD BANK UNIT ABO/RH A- UR BLOOD BANK UNIT TYPE ISBT 0600 UR BL OOD BANK 09/20/2023 7:51 AM CDT Cecy Mabry MD BLOOD BANK PRODUCT O RDERABLES UR BLOOD BANK [facility] Bank Blood Components Lab [address] [place] [address], Room [address] * (ABNORMAL) Glucose by meter (09/20/2023 5:51 AM CDT) GLUCOSE BY METER POCT 143(H) 70 - 99 mg/dL 09/20/2023 5:58 AM CDT UR LABORATORY POC Blood, Capillary BLOOD SPECIMEN / Unknown 09/20/2023 5:51 AM CDT 09/20/2023 5:58 AM CDT Najma Bell [facility] UR LABORATORY POC [facility], Room [address] * ABO and Rh (09/20/2023 5:36 AM CDT) Pathologist [facility] ABO/RH(D) A NEG 09/20/2023 8:04 AM CDT UR BLOOD BANK SPECIMEN EXPIRATION DATE [id number] 09/20/2023 8:04 AM CDT UR BLOOD BANK Blood BLOOD SPECIMEN / Unknown Venipuncture-No Charge / Unknown 09/20/2023 5:36 AM CDT 09/20/2023 8:05 AM CDT Laura Wisdom MD LAB - BLOOD BANK T EST ORDER Performing Organization Address City/[facility]/ZIP Co de Phone Number UR BLOOD BANK [facility] Lab [facility], Room [address] * (ABNORMAL) CBC with platelets (09/20/2023 5:36 AM CDT) Pathologist [facility] WBC Count 8.3 4.0 - 11.0 10e3/uL [...] LAB - BLOOD ORDERABL ES UR LABORATORY [facility] Lab [address], [address] [place] [address] [place] * (ABNORMAL) Comprehensive metabolic panel (09/20/2023 5:36 [...] LAB - BLOOD ORDERABL ES UR LABORATORY [facility] [address] [place] [address], [address] [place] [address] [place] * Hepatitis B core antibody (09/20/2023 12:10 [...] LAB - BLOOD ORDER [facility] LABORATORY [facility] Core Lab [address] [facility], [address] [place] [phone] [place] [address] * Hepatitis B Surface Antibody (09/20/2023 12:10 AM CDT) Pathologist [facility] Hepatitis B Surface Antibody Reactive 09/22/2023 2:49 [...] Lee MD LAB - BLOOD ORDER [facility] LABORATORY [facility] Lab [address] [facility], Room [address] [place] [address] [place] [address] * (ABNORMAL) Hemoglobin A1c (09/20/2023 12:10 AM CDT) Pathologist [facility] Hemoglobin A1C 7.4(H) <5.7 % 09/20/2023 4:17 AM CDT UR LABORATORY Comment: Normal <5.7% Prediabetes 5.7-6.4% ?? Diabetes 6.5% or higher Note: Adopted from ADA consensus guidelines. Blood STRUCTURE OF LEFT UPPER LIMB / Unknown Venipuncture / Unknown 09/20/2023 12:10 AM CDT 09/20/2023 12:13 AM CDT Cecy Mabry MD LAB - BLOOD ORDERABL ES UR LABORATORY [facility] [address] [place] [address], [address] [place] [address] [place] * (ABNORMAL) Glucose by meter (09/20/2023 12:10 AM CDT) GLUCOSE BY METER POCT 111(H) 70 - 99 mg/dL 09/20/2023 12:18 AM CDT UR LABORATORY POC Blood, Capillary BLOOD SPECIMEN / Unknown 09/20/2023 12:10 AM CDT 09/20/2023 12:18 AM CDT Najma Bell MD LAB - [facility] UR LABORATORY POC [facility] [address] [place] [address], Room [address] [address] [place] * Adult Type and Screen (09/20/2023 12:10 AM CDT) Pathologist [facility] ABO/RH(D) A NEG 09/19/2023 11:57 PM CDT UR BLOOD BANK Antibody Screen Negative Negative 09/19/2023 11:57 PM CDT UR BLOOD BANK SPECIMEN EXPIRATION DATE [id number] 09/19/2023 11:57 PM CDT UR BLOOD BANK Blood STRUCTURE OF LEFT UPPER LIMB / Unknown Venipuncture / Unknown 09/20/2023 12:10 AM CDT 09/20/2023 12:13 AM CDT Cecy Mabry MD LAB - BLOOD BANK DIANE T ORDER UR BLOOD BANK [facility] Lab [address] [place] [address], Room [address] [address] [place] * Treponema Abs w Reflex to RPR and Titer (09/20/2023 12:10 AM CDT) Treponema Antibody Total Nonreactive Nonreactive 09/20/2023 10:50 AM CDT SPECIALTY CORE/PROT/EN DO Blood STRUCTURE OF LEFT UPPER LIMB / Unknown Venipuncture / Unknown 09/20/2023 12:10 AM CDT 09/20/2023 12:13 AM CDT Cecy Mabry MD LAB - BLOOD ORDERABL ES [facility] SPECIALTY CORE/PROT/ENDO [facility] Specialty Core/Prot/Endo [address] [facility] [address], Room [address] * (ABNORMAL) Comprehensive Metabolic Panel (09/20/2023 [...] 12:38 AM CDT UR LABORATORY Comment:eGFR calculated usin 2020 CKD-EPI equation. Calcium 8.5(L) 8.8 - 10.4 [...] LAB - BLOOD ORDERABL ES UR LABORATORY [facility] Lab [address], [address] [place] [address] [place] * (ABNORMAL) CBC with platelets (09/20/2023 12:10 [...] LAB - BLOOD ORDERABL ES UR LABORATORY [facility] Lab [address], [address] [place] [address] [place] * (ABNORMAL) UA with Microscopic reflex to [...] 09/20/2023 4:11 AM CDT UR LABORATORY Specific [place] Urine 1.020 1.003 - 1.035 09/20/2023 4:11 [...] LAB - URINE ORDERABL ES UR LABORATORY [facility] [address] [place] [address], Room [address] [address] [place] * (ABNORMAL) Protein random urine (09/20/2023 12:03 [...] LAB - URINE ORDERABL ES UR LABORATORY [facility] [address] [place] [address], Room [address] [address] documented in this encounter Visit Diagnoses Diagnosis (spontaneous vaginal delivery)- Primary Normal delivery Severe pre-eclampsia, antepartum Preeclampsia, severe Severe pre-eclampsia, unspecified as to episode of care documented in this encounter Administered Medications Inactive Administered [...] $Given 09/20/2023 9:48 AM CDT 650 mg acetaminophen (TYLENOL) tablet 650 mg 650 mg, Oral, EVERY 4 HOURS PRN, mild pain, fever, greater than or equal to 38 C /100.4 F (oral) or 38.5 C/ 101.4 F (core)., Starting on 09/21/23 at 0433, Maximum acetaminophen dose from all sources = 75 mg/kg/day not to exceed 4 grams/day., $Given 09/23/2023 4:10 PM CDT 650 mg $Given 09/23/2023 12:18 PM CDT 650 mg $Given 09/23/2023 8:15 AM CDT 650 mg carboprost (HEMABATE) injection [...] $Given 09/21/2023 3:40 AM CDT 250 mcg carboprost (HEMABATE) injection 250 mcg 250 mcg, Intramuscular, EVERY 15 MIN PRN, other, ONLY for uterine atony with significant bleeding POST-DELIVERY, Starting on 09/21/23 at 0433, Notify provider IF uterine atony and clarify with provider medication preference. Administer only if directed by provider. Give with caution in patients with asthma, active pulmonary, hepatic, renal or cardiovascular disease., dextrose 10% infusion at 0-100 mL/hr, Intravenous, CONTINUOUS PRN, Set current rate per OB DIAB INSULIN Infusion in Labor algorithm. Discontinue when discontinuing insulin drip., Intrapartum, Starting on Thu09/20/23 at 0849, Until Thu09/21/23 at 0436 Rate/Dose Change 09/20/2023 10:36 PM CDT 50 mL/hr $New Bag 09/20/2023 7:30 PM CDT 50 mL/hr dextrose 50 % injection 25-50 mL 25-50 [...] PRN, itching, Starting on Thu09/20/23 at 0038 diphenhydrAMINE (BENADRYL) injection 25 mg 25 mg, Intravenous, EVERY 6 HOURS PRN, itching, Starting on Thu09/20/23 at 0038 $Given 09/20/2023 3:47 PM CDT 25 mg $Given 09/20/2023 12:53 AM CDT 25 mg docusate sodium (COLACE) capsule 100 mg 100 mg, Oral, DAILY, First dose on Thu09/21/23 at 0800, Hold for loose stools., $Given 09/23/2023 8:15 AM CDT 100 mg $Given 09/22/2023 8:14 AM CDT 100 mg $Given 09/21/2023 8:14 AM CDT 100 mg fentaNYL (PF) (SUBLIMAZE) injection 50-100 mcg 50-100 mcg, Intravenous, ONCE, On Thu09/20/23 at 0230, For 1 dose $Given 09/20/2023 [...] CDT $New Syringe/Cartridge 09/20/2023 6:06 AM CDT glucagon injection 1 mg 1 mg, Subcutaneous, [...] dose: 3200 mg/day Give with food., $Given 09/23/2023 4:10 PM CDT 800 mg $Given 09/23/2023 8:14 AM CDT 800 mg $Given 09/23/2023 2:47 AM CDT 800 mg insulin aspart (NovoLOG) [...] 350 mg/dL after administration of correction dose. insulin glargine (LANTUS PEN) injection 10 Units 10 Units, Subcutaneous, EVERY MORNING BEFORE BREAKFAST, First dose (after last modification) on Thu09/20/23 at 0730, Intrapartum $Given 09/20/2023 6:44 AM [...] 7:38 AM CDT 8 Units/hr 8 mL/hr ketorolac (TORADOL) injection 30 mg 30 mg, [...] mg/24hours. $Given 09/20/2023 4:23 PM CDT 20 mg $Given 09/20/2023 9:59 AM CDT 20 mg $Given 09/20/2023 3:01 AM CDT 40 mg lactated ringers BOLUS 500 mL Intravenous, 500 [...] Bag 09/21/2023 4:03 AM CDT 500 mLs lactated ringers infusion at 10-125 mL/hr, Intravenous, CONTINUOUS, Titrate lactated ringers rate to obtain total IV intake of no more than 125 mL/hour, Starting on 09/20/23 at 0030, Until Thu09/23/23 at 2212 $New Bag 09/21/2023 4:02 PM CDT 50 mL/hr 50 mL/hr Rate/Dose Change 09/20/2023 7:36 PM CDT 10 mL/hr 10 mL/h r Rate/Dose Verify 09/20/2023 3:33 PM CDT 50 mL/hr 50 mL/h r lidocaine (PF) (XYLOCAINE) 1 % injection 10 mL 10 mL, Subcutaneous, ONCE, On Thu09/23/23 at 0900, For 1 dose $Given 09/23/2023 1:46 PM CDT 4 mLs loperamide (IMODIUM) capsule 2 mg 2 mg, Oral, EVERY 2 HOURS PRN, other, after each loose stool, Starting on 09/19/23 at 2356, May give only after delivery. For diarrhea occurring after carboprost (HEMABATE) administration ONLY. Maximum 16 mg/day. Do NOT give stool softeners or laxatives until diarrhea is resolved., Intrapartum $Given 09/21/2023 4:06 AM CDT 2 mg loperamide (IMODIUM) capsule 4 mg 4 mg, Oral, ONCE PRN, other, Give with first dose of carboprost (HEMABATE), Starting on 09/21/23 at 0433, For 1 dose, May give only after delivery., magnesium sulfate infusion 2 g/hr (50 mL/hr), [...] - Uterine tachysystole - Cervix favorable - Villgeas Score 6 or greater - Active vaginal [...] $Given 09/21/2023 3:30 AM CDT 400 mcg misoprostol (CYTOTEC) tablet 400 mcg 400 mcg, Oral, GIVE ONCE PRN AND REPEAT ACCORDING TO INSTRUCTIONS, post- hemorrhage, Starting on 09/21/23 at 0433, Administer only if directed by [...] 2 MIN PRN, opioid reversal, Starting on 09/21/23 at 0444, Administer intramuscular if an intravenous [...] 60 mg, Oral, DAILY, First dose on 09/20/23 at 1800, DO NOT CRUSH. $Given 09/23/2023 8:15 AM CDT 60 mg $Given 09/22/2023 8:14 AM CDT 60 mg $Given 09/21/2023 8:14 AM CDT 60 mg ondansetron (ZOFRAN ODT) ODT tab 4 mg [...] AM CDT 340 mL/hr 340 mL/ hr oxytocin (PITOCIN) 30 units in 500 mL 0.9% NaCl infusion 1-26 dominick-units/min (1-26 mL/hr), Intravenous, CONTINUOUS, Starting on Thu09/20/23 at 0900, Start infusion at 2 dominick-units/min. [...] STAT, 5 Million Units, Intravenous, ONCE, On Thu09/20/23 at 0900, For 1 dose, Loading Dose. Active upon active labor status., Indications: Group B Strep, Intrapartum $New Bag 09/20/2023 9:28 AM CDT 5 Million Units sodium chloride (PF) 0.9% PF flush 3 [...] the four hour limit has been reached. sodium chloride 0.9% BOLUS 1-250 mL Intravenous, 1-250 mL, EVERY 1 HOUR PRN, To prime infusion tubing AND flush blood through tubing POST blood component administration., Starting on Thu09/23/23 at 0827, IF blood component ordered, nurse to administer [...] MIN PRN, Post- hemorrhage (PPH), Starting on Thu09/19/23 at 2356, For 2 doses, Provider consultation [...] Thu09/21/23 at 0800, Hold for loose stools., 08 ($Given - Provider: Gabby Chatterjee RN) 0814 ($Given - Provider: Ina Swan, JD) 0815 ($Given - Provider: Ina Swan RN) etonogestrel (NEXPLANON) subdermal implant 68 mg 68 mg (1 each), Subdermal, ONCE, On Thu09/23/23 at 0900, For 1 dose, For Clinic Use Only. 0900 (Canceled Entry - Provider: Orders Generic Provider - Comment: Automatically canceled at discontinue of medication order) insulin aspart (NovoLOG) injection (RAPID ACTING) 1-7 [...] Reason: Order parameters not met - Comment: [id number]) 0746 ($Given - Provider: Ina Swan RN - Comment: 140)1200 (Not Given - Provider: Ina Swan RN - Reason: Patient/family refused - Comment: pt didnt call out before eating)1808 (Not Given - Provider: Ivis Oconnell RN - Reason: Other - Comment: BG 137) 0815 (Not Given - Provider: Ina Swan RN - Reason: Patient/family refused)1445 (Not Given - Provider: Ina Swan RN - Reason: Contraindicated - Comment: B 107)1700 (Canceled Entry - Provider: Orders Generic Provider - Comment: Automatically canceled at discontinue of medication order) insulin aspart (NovoLOG) injection (RAPID ACTING) 1-5 [...] Comment: still on insulin gtt and not eating)230 (Not Given - Provider: Gardenia Martinez RN - Reason: Order parameters not met - Comment: BG= 161) 2310 (Not Given - Provider: Luana Hui RN - Reason: Order parameters not met - Comment: blood sugar 160) 2200 (Canceled Entry - Provider: Orders Generic Provider - Comment: Automatically canceled at discontinue of medication order) lidocaine (PF) (XYLOCAINE) 1 % injection 10 mL (COMPLETED) 10 mL, Subcutaneous, ONCE, On Thu09/23/23 at 0900, For 1 dose 1346 ($Given - Provi ray: Ina Swan RN) magnesium sulfate 4 g in 100 mL [...] 0814 ($Given - Provider: Ina Swan RN) 0815 ($Given - Provider: Ina Swan RN) penicillin G potassium 3 Million Units in [...] line 0010 (Not Given - Provider: Alisa Lubin, JD - Reason: IV Infusing)0852 (Not Given - Provider: Gabby Chatterjee RN - Reason: IV Infusing)1609 ($Given - Provider: Isamar Quinn RN) 0202 (Not Given - Provider: Garednia Martinez, JD - Reason: IV Infusing)0814 ($Given - Provider: Ina Swan RN)1809 ($Given - Provider: Ivis Oconnell RN)2346 ($Given - Provider: Sandhya Jimenez RN) 0830 (Canceled Entry - Provider: Orders Generic Provider - Comment: Automatically canceled at discontinue of medication order)1630 (Canceled Entry - Provider: Orders Generic Provider - Comment: Automatically canceled at discontinue of medication order) Continuous Medication Order 09/21/2023 09/22/2023 09/23/2023 lactated ringers infusion at 10-125 mL/hr, Intravenous, CONTINUOUS, Titrate lactated ringers rate to obtain total IV intake of no more than 125 mL/hour, Starting on Thu09/20/23 at 0030, Until Thu09/23/23 at 2212 1602 ($New Bag - Provider: Isamar Quinn RN) 0332 (Stopped - Provider: Gardenia Martinez RN) magnesium sulfate infusion () 2 g/hr (50 mL/hr), Intravenous, CONTINUOUS, Starting on Thu09/20/23 at 0030, For 2 days 4 hours, [...] RN)1931 (Rate/Dose Verify - Provider: Gardenia Martinez, RN) 0332 (Stopped - Provider: Gardenia Martinez RN) oxytocin (PITOCIN) 30 units in 500 mL 0.9% NaCl infusion (CANCELED) 1-26 dominick-units/min (1-26 mL/hr), Intravenous, CONTINUOUS, Starting on Thu09/20/23 at 0900, Start infusion at 2 dominick-units/min. [...] Intrapartum 0102 (Rate/Dose Change - Provider: Alisa Lubin RN)0324 (Stopped - Provider: Alisa Lubin RN) PRN [...] Gardenia Martinez RN)1034 ($Given - Provider: Ina Swan, JD)1542 ($Given - Provider: Ivis Oconnell, JD)1940 ($Given - Provider: Luana Hui RN)2345 ($Given - Provider: Sandhya Jimenez, RN) 0401 ($Given - Provider: Sandhya Jimenez, RN)0815 ($Given - Provider: Ina Swan, RN)1218 ($Given - Provider: Ina Swan, RN)1610 ($Given - Provider: Ina Swan, RN) benzocaine-menthol (DERMOPLAST) topical spray Topical, 4 [...] with food., 1820 ($Given - Provider: Isamar Quinn, JD) 0228 ($Given - Provider: Gardenia Martinez, JD)0814 ($Given - Provider: Ina Swan, RN)1425 ($Given - Provider: Ina Swan, RN)2036 ($Given - Provider: Luana Hui, RN) 0247 ($Given - Provider: America Huff, JD)0814 ($Given - Provider: Ina Swan, RN)1610 ($Given - Provider: Ina Swan, RN) insulin regular (MYXREDLIN) 1 unit/mL infusion (CANCELED) Intravenous, CONTINUOUS PRN, other, Start infusion per administration instructions., Starting on 09/20/23 at 0849, Follow OB DIAB INSULIN Infusion [...] PRN, pain, with VAD insertion, Starting on 09/20/23 at 0002, Apply at least 30 minutes [...] the lidocaine cream on the same site. 1215 (Canceled Entry - Provider: Orders Generic Provider - Comment: Automatically canceled at discontinue of medication order) lidocaine 1 % 0.1-20 mL 0.1-20 mL, Subcutaneous, ONCE PRN, episiotomy/laceration repair, Starting on Thu09/20/23 at 0847, For 1 dose, Available for [...] HOURS PRN, itching, Starting on 09/20/23 at 0106, Give 2.5 mg initially. If [...] PRN, Starting on Thu09/21/23 at 0435, Until Thu09/23/23 at 221, Assessment: Patient does not need MMR immunization, No Tdap Needed - Assessment: Patient does not need Tdap vaccine CONTINUOUS PRN, Starting on Thu09/21/23 at 0435, Until Thu09/23/23 at 2212, Assessment: Patient does not need Tdap immunization, [...] the four hour limit has been reached. sodium chloride 0.9% BOLUS 1-250 mL Intravenous, 1-250 mL, EVERY 1 HOUR PRN, To prime infusion tubing AND flush blood through tubing POST blood component administration., Starting on Thu09/23/23 at 0827, IF blood component ordered, nurse to administer [...] MIN PRN, Post- hemorrhage (PPH), Starting on Thu09/19/23 at 2356, For 2 doses, Provider consultation [...] MIN PRN, Post- hemorrhage (PPH), Starting on 09/21/23 at 0433, For 2 doses, Provider consultation [...] DIC. Administer only if directed by provider., Linked Groups Order Group 1: penicillin G potassium 5 million units vial to attach to NS 100 mL bag (COMPLETED) STAT, 5 Million Units, Intravenous, ONCE, On Thu09/20/23 at 0900, For 1 dose, Loading Dose. [...] ACCORDING TO INSTRUCTIONS, post- hemorrhage, Starting on 09/21/23 at 0433, Administer only if directed by [...] doses. documented in this encounter Care Teams Surgery Assistant Relationship Specialty Start Date End Date Tre Ba MD [facility] [place], [place] [phone] PCP - General fraud prevention analyst 01/15/22 09/19/23 No Ref-Primary, Physician PCP - General 09/20/23 Bassem Pathak MD [id number] [address] [place] [address] Assigned OBGYN Provider 08/16/23 documented as of this encounter
--- OUTSIDE RECORDS SUMMARY | 2023-10-09 15:47 | XMS_ITS | Referral Summary ---
Author Organization Alpha Address [address] [place] [address]. [place] [address] Care Team Providers Care Asset Protection Detective Name Role Phone Bassem Pathak MD Unavailable [phone] No Ref-Primary, Physician Primary Care Provider Encounters Date Type Department Care Team Description 09/28/2023 MyC Medical Advice [facility] [address] [place] [address] Sumi Peraza RN 09/28/2023 Telephone [facility] [address] [place] [address] Sumi Peraza RN Hypertension 09/24/2023 Medical Correspondence [facility] [address] [place] [phone] Scan, Non-Provider [facility] 09/19/2023 11:56 PM CDT - 09/23/2023 8:00 PM CDT Hospital Encounter [facility] [address] [place] [phone] Najma Bell MD Terrell, Carrie Ann, MD (spontaneous vaginal delivery) (Primary Dx); Severe pre-eclampsia, antepartum Discharge Disposition: Home-Health Care Sv 09/20/2023 5:51 AM CDT Anesthesia Event [facility] [address] [place] [address] Vickie Agarwal MD Dahmen, Mariah, MD 09/16/2023 Telephone [facility] [address] [place] [address] Cheri Peters LPN 09/15/2023 Travel 09/15/2023 2:00 PM CDT Office Visit [facility] [place] [address] [place] [address] Mitch Jernigan MD Pre-existing type 2 diabetes mellitus during in third trimester (Primary Dx); Polyhydramnios affecting 09/15/2023 1:30 PM CDT - 09/15/2023 11:59 PM CDT Hospital Encounter [facility] [place] [address] [place] [phone] Mitch Jernigan MD Pre-existing type 2 diabetes mellitus during in third trimester Discharge Disposition: Home or Self Care 09/08/2023 Travel 09/08/2023 12:15 PM CDT Office Visit [facility] [place] [address] [place] [phone] Bassem Pathak MD Rauk, Phillip Neil, MD Pre-existing type 2 diabetes mellitus during in third trimester (Primary Dx) 09/08/2023 11:45 AM CDT - 09/08/2023 11:59 PM CDT Hospital Encounter [facility] [address] [place] [phone] Bassem Pathak MD Rauk, Phillip Neil, MD Pre-existing type 2 diabetes mellitus during in third trimester Discharge Disposition: Home or Self Care 09/02/2023 Travel 09/02/2023 12:15 PM CDT Office Visit [facility] [address] [place] [phone] Luz Elena Betts MD Pre-existing type 2 diabetes mellitus during in third trimester (Primary Dx) 09/02/2023 11:45 AM CDT - 09/02/2023 11:59 PM CDT Hospital Encounter [facility] [place] [address] [place] [phone] Luz Elena Betts MD Pre-existing type 2 diabetes mellitus during in third trimester Discharge Disposition: Home or Self Care 08/26/2023 Telephone [facility] [place] [address] [place] [phone] Cheri Peters LPN 08/25/2023 Travel 08/25/2023 12:15 PM CDT Office Visit [facility] [place] [address] [place] [phone] Bassem Pathak MD Yamamura, Yasuko, MD Pre-existing type 2 diabetes mellitus during in third trimester (Primary Dx); Polyhydramnios in third trimester complication, single or unspecified fetus 08/25/2023 11:45 AM CDT - 08/25/2023 11:59 PM CDT Hospital Encounter [facility] [place] [address] [place] [phone] Bassem Pathak MD Yamamura, Yasuko, MD Pre-existing type 2 diabetes mellitus during in third trimester Discharge Disposition: Home or Self Care 08/21/2023 Travel 08/21/2023 12:15 PM CDT Office Visit [facility] [place] [address] [place] [phone] Cristiane Patel MD Rauk, Mitch Walker MD Pre-existing type 2 diabetes mellitus during in third trimester (Primary Dx); Polyhydramnios affecting 08/21/2023 11:45 AM CDT - 08/21/2023 11:59 PM CDT Hospital Encounter [facility] [place] [address] [place] [address] Cristiane Patel MD Rauk, Mitch Walker MD Polyhydramnios affecting Discharge Disposition: Home or Self Care 08/14/2023 Travel 08/14/2023 4:00 PM CDT Office Visit [facility] [place] [address] [place] [address] Cristiane Patel MD Rauk, Mitch Walker MD Pre-existing type 2 diabetes mellitus during in third trimester (Primary Dx); Polyhydramnios affecting 08/14/2023 3:30 PM CDT - 08/14/2023 11:59 PM CDT Hospital Encounter [facility] [place] [address] [place] [phone] Cristiane Patel MD Rauk, Mitch Walker MD Polyhydramnios affecting Discharge Disposition: Home or Self Care 08/03/2023 Telephone [facility] [address] [phone] Laura Abdi, GC Results (Low Risk Expanded NIPT) 07/30/2023 Travel 07/30/2023 4:00 PM CDT Office Visit [facility] [address] [phone] Bassem Pathak MD Pre-existing type 2 diabetes mellitus during in third trimester (Primary Dx) 07/30/2023 3:25 PM CDT - 07/30/2023 11:59 PM CDT Hospital Encounter [facility] [place] [address] [place] [phone] Bassem Pathak MD Polyhydramnios affecting Discharge Disposition: Home or Self Care 07/29/2023 Telephone [facility] [place] [address] [facility] [address] [place] [address] Carrie Smith, JD Care (/) 07/24/2023 Medical Correspondence [facility] [address] [facility] [phone] Scan, Non-Provider 07/24/2023 2:40 PM CDT Lab [facility] [address] [place] [phone] Cristiane Patel MD Multigravida of advanced maternal age in third trimester 07/24/2023 Travel 07/24/2023 2:00 PM CDT Office Visit [facility] [address] [facility] [address] [place] [address] Cristiane Patel MD with type 2 diabetes mellitus in third trimester (Primary Dx); Polyhydramnios affecting 07/24/2023 12:50 PM CDT - 07/24/2023 11:59 PM CDT Hospital Encounter [facility] [address] [facility] [address] [place] [phone] Cristiane Patel MD related condition, antepartum Discharge Disposition: Home or Self Care 07/24/2023 12:45 PM CDT Office Visit [facility] [place] [address] [facility] [address] [place] [phone] Cristiane Patel MD Daykin, Emily C, GC Multigravida of advanced maternal age in third trimester (Primary Dx); related condition, antepartum from Last 3 Months Allergies No known [...] drink = 0.6 oz pur e alcohol) [place] Depression Scale Answer Date Recorded Last EPDS [...] 154.9 cm (5' 1) 01/20/2022 4:42 PM [employer] Body Mass Index 35.3 01/20/2022 4:42 PM [employer] Plan of Treatment Not on file Procedures [...] RANDOM URINE STAT 09/20/2023 12:03 AM CDT [facility] US COMPREHENSIVE SINGLE F/U Routine 09/15/2023 2:12 PM CDT Pre-existing type 2 diabetes mellitus during in third trimester [facility] BPP SINGLE Routine 09/08/2023 12:22 PM CDT Pre-existing type 2 diabetes mellitus during in third trimester [facility] BPP SINGLE Routine 09/02/2023 12:22 PM CDT Pre-existing type 2 diabetes mellitus during in third trimester [facility] SINGLE Routine 08/25/2023 12:05 PM CDT Pre-existing type 2 diabetes mellitus during in third trimester [facility] COMPREHENSIVE SINGLE F/U Routine 08/21/2023 12:39 PM CDT Polyhydramnios affecting [facility] SINGLE Routine 08/14/2023 3:54 PM CDT Polyhydramnios affecting [facility] SINGLE Routine 07/30/2023 3:46 PM CDT Polyhydramnios affecting [facility] NON-INVASIVE SCREENING PREQUEL Routine 07/24/2023 2:49 PM CDT Multigravida of advanced maternal age in third trimester [facility] SINGLE Routine 07/24/2023 2:13 PM [...] of28 resultswithin the time period is included. [facility] Signature GLUCOSE BY METER POCT 107(H) 70 - 99 mg/dL 09/23/2023 2:50 PM CDT UR LABORATORY POC Comment:Dr/RN Notified Blood, Capillary BLOOD SPECIMEN / Unknown 09/23/2023 2:42 PM CDT 09/23/2023 2:50 PM CDT Najma JOHNSON - MATT WILKINS SC UR LABORATORY POC [facility] Acute Care Lab [address] [facility], [address] [place] [address] * (ABNORMAL) Hemoglobin (09/23/2023 6:38 AM CDT) Only the most recent of3 resultswithin the time period is included. Hemoglobin 7.1(L) 11.7 - 15.7 g/dL 09/23/2023 7:13 AM CDT UR LABORATORY Blood BLOOD SPECIMEN / Unknown Venipuncture / Unknown 09/23/2023 6:38 AM CDT 09/23/2023 7:09 AM CDT Gemma Snyder MD LAB - BLOOD ORDERABL ES UR LABORATORY [facility] Acute [facility] Lab [address] [place] [address], Room [place] [phone] * Creatinine (09/21/2023 7:36 PM CDT) Only the most recent of3 resultswithin the time period is included. Pathologist [facility] Creatinine 0.87 0.51 - 0.95 mg/dL 09/21/2023 8:31 PM CDT UR LABORATORY GFR Estimate 89 >60 mL/min/1.7 3m2 09/21/2023 8:31 PM CDT UR LABORATORY Comment:eGFR calculated us2020 CKD-EPI equation. Blood STRUCTURE OF RIGHT HAND / Unknown Venipuncture / Unknown 09/21/2023 7:36 PM CDT 09/21/2023 8:05 PM CDT Najma Orellana DO LAB - BLOOD ORDERABL ES UR LABORATORY [facility] Lab [address] [place] [address], Room [address] [phone] * Hepatitis B surface antigen (09/21/2023 5:22 AM CDT) Hepatitis B Surface Antigen Nonreactive Nonreactive 09/22/2023 9:07 AM CDT UU LABORATORY Blood STRUCTURE OF RIGHT UPPER LIMB / Unknown Venipuncture / Unknown 09/21/2023 5:22 AM CDT 09/21/2023 5:34 AM CDT Kayden Lee MD LAB - BLOOD ORDER PARKER UU LABORATORY [facility] Core Lab [address] [facility], [address] [place] [address] * AST (09/21/2023 5:22 AM CDT) Only the most recent of2 resultswithin the time period is included. AST 26 0 - 45 U/L 09/21/2023 6:0 2 AM CDT UR LABORATORY Blood STRUCTURE OF RIGHT UPPER LIMB / Unknown Venipuncture / Unknown 09/21/2023 5:22 AM CDT 09/21/2023 5:34 AM CDT Brittani Gomez MD LAB - BLOOD ORDERABL ES Performing Organization Address City/[facility]/ZIP Co de Phone Number UR LABORATORY [facility] Acute Care Lab Critical access hospital0 [facility], Room [address] [phone] * ALT (09/21/2023 5:22 AM CDT) Only the most recent of2 resultswithin the time period is included. ALT 20 0 - 50 U/L 09/21/2023 6:0 2 AM CDT UR LABORATORY Blood STRUCTURE OF RIGHT UPPER LIMB / Unknown Venipuncture / Unknown 09/21/2023 5:22 AM CDT 09/21/2023 5:34 AM CDT Brittani Gomez MD LAB - BLOOD ORDERABL ES UR LABORATORY [facility] Acute Care Lab [address] [place] [address], Room [place] [phone], [facility] * (ABNORMAL) CBC with platelets [...] LAB - BLOOD ORDERABL ES UR LABORATORY [facility] Acute Care Lab [address] [place] [address], [address] [place] [address], [facility] * RBC and Platelet Morphology (09/20/2023 8:34 PM CDT) [facility] Platelet Assessment Automated Count Confirmed. Platelet [...] Crystals 09/20/2023 9:26 PM CDT UR LABORATORY [place] Bodies 09/20/2023 9:26 PM CDT UR LABORATORY [...] LAB - BLOOD ORDERABL ES UR LABORATORY [facility] Acute Care Lab [address] [facility], [address] [place] [address], [facility] * (ABNORMAL) Magnesium (09/20/2023 5:11 PM CDT) Magnesium 6.5(H) 1.7 - 2.3 mg/dL 09/20/2023 5:39 PM CDT UR LABORATORY Blood STRUCTURE OF LEFT UPPER LIMB / Unknown Venipuncture / Unknown 09/20/2023 5:11 PM CDT 09/20/2023 5:14 PM CDT Brittani Gomez MD LAB - BLOOD ORDERABL ES Performing Organization Address [facility] de Phone Number UR LABORATORY [facility] Acute Care Lab [address] [place] [address], Room [address] * Prepare red blood cells (unit) (09/20/2023 7:51 AM CDT) Only the most recent of2 resultswithin the time period is included. Blood Component Type Red Blood Cells UR BLOOD BANK Product Code [id number] UR BLOO D BANK Unit Status Transfused UR BLOO D BANK Unit Number [id number] UR B LOOD BANK CROSSMATCH Compatible UR BLOOD BANK CODING SYSTEM [id number] UR BLO OD BANK ISSUE DATE AND TIME [id number] UR BLOOD BANK UNIT ABO/RH A- UR BLOOD BANK UNIT TYPE ISBT 0600 UR BL OOD BANK 09/20/2023 7:51 AM CDT Cecy Mabry MD BLOOD BANK PRODUCT O RDERABLES Performing Organization Address [facility] de Phone Number UR BLOOD BANK [facility] Blood Components Lab [address] [place] [address], Room [address] * FV AN CSE DUMMY PERFORMABLE (09/20/2023 6:00 AM CDT) Narrative Estephanie Storey MD - 09/20/2023 6:00 AM CDT Estephanie Storey MD ? 09/20/2023 ??6:21 AM Dural puncture epidural Procedure Note Pre-Procedure Staff - ? Anesthesiologist: ??Estephanie Storey MD ? Resident/Fellow: Geno Love MD ? Performed By: resident and with residents ? Procedure performed by resident/fellow/CHARGE MASTER SPECIALIST in presence of a teaching physician. ? [...] Medication Administration Time: 09/20/2023 6:00 AM FOR [facility] [place] ONLY: ?? Pain Team Contact information: please page the Pain Team Via [employer]. Search Pain. During daytime hours, please page the attending first. At night please page the resident first. Estephanie Storey MD [place] ANESTHESIA * (ABNORMAL) Comprehensive metabolic panel (09/20/2023 [...] LAB - BLOOD ORDERABL ES UR LABORATORY [facility] Acute Care Lab [address] [place] [address], [place] [address] [place] [address] * ABO and Rh (09/20/2023 5:36 AM CDT) ABO/RH(D) A NEG 09/20/2023 8:04 AM CDT UR BLOOD BANK SPECIMEN EXPIRATION DATE [id number] 09/20/2023 8:04 AM CDT UR BLOOD BANK Blood BLOOD SPECIMEN / Unknown Venipuncture-No Charge / Unknown 09/20/2023 5:36 AM CDT 09/20/2023 8:05 AM CDT Laura Wisdom MD LAB - BLOOD BANK T EST ORDER UR BLOOD BANK [facility] Blood Components Lab [address] [place] [address], Room [address] * Adult Type and Screen (09/20/2023 12:10 AM CDT) ABO/RH(D) A NEG 09/19/2023 11:57 PM CDT UR BLOOD BANK Antibody Screen Negative Negative 09/19/2023 11:57 PM CDT UR BLOOD BANK SPECIMEN EXPIRATION DATE [id number] 09/19/2023 11:57 PM CDT UR BLOOD BANK Blood STRUCTURE OF LEFT UPPER LIMB / Unknown Venipuncture / Unknown 09/20/2023 12:10 AM CDT 09/20/2023 12:13 AM CDT Cecy Mabry MD LAB - BLOOD BANK DIANE T ORDER UR BLOOD BANK [facility] [place] Blood Components Lab [address] [facility], [address] [place] [address], [facility] * Hepatitis B Surface Antibody (09/20/2023 12:10 [...] LAB - BLOOD ORDER PARKER UU LABORATORY [facility] [place] Core Lab [address] [facility], [address] [place] [address], [facility] * Treponema Abs w Reflex to RPR and Titer (09/20/2023 12:10 AM CDT) Treponema Antibody Total Nonreactive Nonreactive 09/20/2023 10:50 AM CDT [facility] CORE/PROT/EN DO Blood STRUCTURE OF LEFT UPPER LIMB / Unknown Venipuncture / Unknown 09/20/2023 12:10 AM CDT 09/20/2023 12:13 AM CDT Cecy Mabry MD LAB - BLOOD ORDERABL ES [facility] CORE/PROT/ENDO [facility] Core/Prot/Endo [address] [facility], Room [address] * Hepatitis B core antibody (09/20/2023 [...] - BLOOD ORDER PARKER Performing Organization Address City/[facility]/ZIP Co de Phone Number UU LABORATORY [facility] Core Lab [address] [facility], [address] * (ABNORMAL) Hemoglobin A1c (09/20/2023 12:10 [...] LAB - BLOOD ORDERABL ES UR LABORATORY [facility] Acute Care Lab [address] [place] [address], [address] [place] [address] * (ABNORMAL) UA with Microscopic reflex [...] 09/20/2023 4:11 AM CDT UR LABORATORY Specific [place] Urine 1.020 1.003 - 1.035 09/20/2023 4:11 [...] - URINE ORDERABL ES Performing Organization Address City/[facility]/ZIP Co de Phone Number UR LABORATORY [facility] Acute [facility] Lab [address] [facility], Room [place] [phone] * (ABNORMAL) Protein random urine (09/20/2023 [...] LAB - URINE ORDERABL ES UR LABORATORY [facility] Care Lab Critical access hospital0 [facility], Room [address] [phone] * [facility] Comprehensive Single F/U (09/15/2023 2:12 PM [...] ----- Pat. Name: GRACEJACK ? Study Date: ??09/15/2023 1:45pm Pat. NO: ??[id number] ?Referring ??MD: HOMAR MEDRANO Site: ? [employer]: Micha Gage RDMS : ??1985 ?Age: ?? [...] lb 2 ?oz EFW by ? Hadlock ([id number]) ANATOMY ----- The following structures appear normal: [...] EDWARDS Study Date: 09/15/2023 1:45pm Pat. NO: [id number] Referring MD: HOMAR MEDRANO Site: [employer]: Micha Gage RDMS : 1985 Age: 37 [...] EFW (lb,oz) 8 lb 2oz EFW by Hadlock([id number]) ANATOMY ----- The following structures appear normal: [...] BPP is reassuring. Luz Elena Betts MD [facility] US ORDERABLE S [facility] BPP Single (09/08/2023 12:22 PM CDT) Only the most recent of5 resultswithin the time period is included. Anatomical Region Laterality Modality Ultrasound 09/08/2023 12:0 1 PM CDT Impressions 09/08/2023 12:24 PM CDT IMPRESSION ----- 1) Mild polyhydramnios. 2) BPP is reassuring. Narrative 09/08/2023 12:24 PM CDT ?BPP ----- Pat. Name: JACK EDWARDS ? Study Date: ??09/08/2023 12:01pm Pat. NO: ??[id number] ?Referring ??: HOMAR MEDRANO Site: ? [employer]: Gemma Pinzon RDMS : ??1985 ?Age: ?? [...] EDWARDS Study Date: 09/08/2023 12:01pm Pat. NO: [id number] Referring MD: OHMAR MEDRANO Site: [employer]: Gemma Pinzon RDMS : 1985 Age: 37 [...] 2) BPP is reassuring. Bassem Pathak MD [facility] ORDERABLE S * [employer] Non-Invasive Screening???Prequel (07/24/2023 2:49 PM CDT) See Scanned Result [facility] NON-INVASIVE SCREENING PREQUEL-Scann ed 08/02/2023 7:16 PM CDT [facility] Blood STRUCTURE OF RIGHT UPPER LIMB / Unknown Venipuncture / Unknown 07/24/2023 2:49 PM CDT 07/24/2023 2:49 PM CDT Laura Abdi LAB - BLOOD ORDERABL ES [facility] [address] [place], [place] [id number] [place] [address] * [facility] Comprehensive Single (07/24/2023 2:13 PM CDT) [...] ? Study Date: ??07/24/2023 1:32pm Pat. NO: ??[id number] ?Referring ??MD: HOMAR MEDRANO Site: ??[facility] ? [employer]: Sujatha Joyce RDMS : ??1985 ?Age: ?? [...] 3 lb 10 ?oz EFW by ?Josh ([id number]) Head / Face / Neck Biometry: Sap Treasury Consultant ? 3.6 ? mm CM ?5.7 ? [...] cava. Inferior vena cava. 3-vessel ? view. 2-yrxpax-piyitzc view. Cardiac position. Cardiac size. Cardiac rhythm. [...] between 220-240. She is following a certified breastfeeding educator and has met with a lead painter. No one has started her on insulin [...] communicating with other health home health care coordinator and/or care coordination. Please see note for details. Procedure Note Cristiane Patel MD - 07/24/2023 Comprehensive ----- Pat. Name: JAKC EDWARDS Study Date: 07/24/2023 1:32pm Pat. NO: [id number] Referring MD: HOMAR MEDRANO Site: [facility] [employer]: Sujatha Joyce RDMS : 1985 Age: 37 [...] mm28w 1d Hadlock Humerus 52.9 mm30w 6d [facility] Weight Calculation: EFW 1,631 g94% Hadlock EFW (lb,oz) 3 lb 10 oz EFW by Hadlock ([id number]) Head / Face / Neck Biometry: Sap Treasury Consultant 3.6 mm CM 5.7 mm Nasal bone [...] Superior venacava. Inferior vena cava. 3-vessel view. 7-byzhio-zscruxg view.Cardiac position. Cardiac size. Cardiac rhythm. Right [...] a diabetic educatorand has met with a lead painter. No one has started her on insulin [...] andcommunicating with other health home health care coordinator and/or carecoordination. Please see note for details. [...] The BPP was 09/30. Homar Medrano APRN LAND LAW EXAMINER IMG M US ORDERABLES from Last 3 Months Advance Directives For more information, please contact: [phone] * Full Code (Latest Code Status on File) Date Activated Date Inactivated Comments 09/20/2023 8:47 AM 09/23/2023 10:12 PM All basic a nd advanced life-sustaining interventions are performed as appropriate Question Answer Comments Code status determined by: Unable to dis cuss and no AD/POLST on file; continue PREVIOUSLY ORDERED code status Care Teams Asset Protection Detective Relationship Specialty Start Date End Date No Ref-Primary, Physician PCP - General 09/20/23 Bassem Pathak MD [address] [address] Assigned OBGYN Provider 08/16/23
--- OUTSIDE RECORDS SUMMARY | 2023-10-09 15:47 | XMS_ITS | Encounter Summary ---
Author Organization [place] Address [address] [place] [address]. [place] [address] Care Team Providers Care Workforce Analyst Name Role Phone Bassem Pathak MD Unavailable [phone] No Ref-Primary, Physician Primary Care Provider Reason for Visit * Auth/Cert (Routine) Specialty Diagnoses / Procedures Referred By Temo taylor Referred To Contact Obstetrics Diagnoses Maternity*BROOKE: 10/10/23*Preeclampsia Preeclampsia, severe Ur [facility] [address] [place] [phone] Referral ID Status Reason Start Date Expiration Date Visits Re quested Visits Authorized [id number] 1 1 Encounter Details Date Type Department Care Team (Late st Contact Info) Description 09/20/2023 5:51 AM CDT Anesthesia Event [facility] [address] [place] [phone] Vickie Agarwal MD [address] [place] [phone] Geno Love MD [address] [place] [address] Anesthesia Record Procedure Summary Procedure [...] Incision/Surgical Site 01/20/22; 2206; Vagina; peripad 01/20/22 2206 by Vickie An RN Peripheral IV 09/20/23; 0000; Righ t; Hand 09/20/23 0000 by Nancy Zee RN 09/23/23 2112 by Inpatient, Nurse Peripheral IV 09/20/23 (placed at other hospital; noted at time of admission and LDA added by filing writer); 18 G; Anterior, Left; Hand 09/20/23 0000 by Nancy Zee RN 09/23/23 2112 by Inpatient, Nurse Mechanical Ripening Device 09/20/23; 0250; [place] Bulb [...] drink = 0.6 oz pur e alcohol) [place] Depression Scale Answer Date Recorded Last EPDS [...] resident and with residents Procedure performed by resident/fellow/NIPPLE MAKER in presence of a teaching physician. Location: [...] Medication Administration Time: 09/20/2023 6:00 AM FOR [facility] ([facility] ONLY: Pain Team Contact information: please page the Pain Team Via [employer]Search Pain. During daytime hours, please page the [...] AND CURETTAGE; Surgeon: Jarvis Naqvi MD; Location: [facility] OR TUBOPLASTY Bilateral 10/03/2021 Procedure: BILATERAL TUBAL ANASTOMOSIS; Surgeon: Tre Ba MD; Location: [facility] OR No Known Allergies Social History Tobacco [...] and realistic alternatives discussed. Questions answered and patient/energy conservation representative(s) expressed understanding. - Discussed: Risks, Benefits [...] and with residents ? Procedure performed by resident/fellow/NIPPLE MAKER in presence of a teaching physician. ? [...] Medication Administration Time: 09/20/2023 6:00 AM FOR [facility] ([facility]) ONLY: ?? Pain Team Contact information: please page the Pain Team [employer]. Search Pain. During daytime hours, please page the attending first. At night please page the resident first. Estephanie Storey MD [place] ANESTHESIA documented in this encounter Visit Diagnoses Not on filedocumented in this encounter Administered Medications Inactive Administered Medications - up to 3 most recent administrations Medication Order MAR Action Action Date Dose Rate Site BUPivacaine (MARCAINE) 0.125 % injection (diluted from stock concentration by or NIPPLE MAKER) EPIDURAL, PRN, Starting on 09/20/23 at 0607, Anesthesia Intra-op $Given 09/20/2023 9:15 PM CDT 5 mLs $Given 09/20/2023 6:07 AM CDT 10 mLs documented in this encounter Care Teams Workforce Analyst Relationship Specialty Start Date End Date No Ref-Primary, Physician PCP - General 09/20/23 Bassem Pathak MD [address] [facility] [address] [place] [address] Assigned OBGYN Provider 08/16/23 documented as of this encounter
--- OUTSIDE RECORDS SUMMARY | 2023-10-09 15:47 | XMS_ITS | Encounter Summary ---
Author Organization [facility] Address [address] [facility] [place] [address] Care Team Providers Care Guest Service Manager Name Role Phone Bassem Pathak MD Unavailable [phone] No Ref-Primary, Physician Primary Care Provider Encounter Details Date Type Department Care Team (Latest Contact Info) Description 09/24/2023 Medical Correspondence [facility] [address] [place] [address] Scan, Non-Provider [facility] Social History Tobacco Use Types Packs/Day Years Used Date Smoking Tobacco: Never Smokeless Tobacco: Never Alcohol Use Standard Drinks/Week Comments Not Currently 0 (1 standard drink = 0.6 oz pur e alcohol) [place] Depression Scale Answer Date Recorded Last EPDS [...] filedocumented in this encounter Care Teams Guest Service Manager Relationship Specialty Start Date End Date No Ref-Primary, Physician PCP - General 09/20/23 Bassem Pathak MD [address] [address] Assigned OBGYN Provider 08/16/23 documented as of this encounter
--- OUTSIDE RECORDS SUMMARY | 2023-10-09 15:47 | XMS_ITS | Encounter Summary ---
Author Organization [facility] Address [address] [place] [address] Care Team Providers Care Mender Hand Name Role Phone Bassem Pathak MD Unavailable [phone] No Ref-Primary, Physician Primary Care Provider Reason for Visit * Reason Onset Date Comments Hypertension 09/28/2023 Encounter Details Date Type Department Care Team (Late st Contact Info) Description 09/28/2023 Telephone [facility] [place] [address] [place], [place] [address] Sumi Rae RN Hypertension Social History Tobacco Use Types Packs/Day Years [...] encounter Miscellaneous Notes * Telephone Encounter - Sumi Rae RN - 09/28/2023 10:18 AM CDT Images from the original note were not included. Home Observation of Elevated BP (HOPE-BP) Program Sheba Wilder enrolled in the HOPE-BP Program on 09/23/2023, days ago. Delivered on 09/21/2023 . Diagnosis: Preeclampsia with severe features. Medication(s) prescribed: Nifedipine ER. Patient reported the following blood pressures in the past 72 hours: No data to display Spoke with patient regarding participation in the [facility] BP Program. Pt states she does want to participate. Advised patient to go into My Chart and complete tasks and enter blood pressure. Pt states her BP yesterday was 133/103. Pt denies any symptoms of HTN. Pt states she is taking Nifedipine and checking BP daily. Advised patient to call [facility] BP RN at [phone] with any questions. Pt verbalized understanding. Pt states she is also seeing her ob provider in [place] the end of this week for BP check. SUMI RAE RN documented in this encounter Plan of Treatment Not on file documented as of this encounter Visit Diagnoses Not on filedocumented in this encounter Care Teams Mender Hand Relationship Specialty Start Date End Date No Ref-Primary, Physician PCP - General 09/20/23 Bassem Pathak MD [address] [place] [address] Assigned OBGYN Provider 08/16/23 documented as of this encounter
--- OUTSIDE RECORDS SUMMARY | 2023-10-09 15:48 | XMS_ITS | Encounter Summary ---
Author Organization [facility] Address [address] [facility] [place] [address] Care Team Providers Care Cork Molder Name Role Phone Tre Ba MD Primary Care Provide r Bassem Pathak MD Unavailable [phone] Encounter Details Date Type Department Care Team (Late st Contact Info) Description 09/16/2023 Telephone [facility] [address] [place] [address] Cheri Peters LPN Social History [...] on filedocumented in this encounter Care Teams Cork Molder Relationship Specialty Start Date End Date Tre Ba MD [address] [facility] [address] [place] [address] PCP - General adoption coordinator 01/15/22 09/19/23 Bassem Pathak MD [address] [facility] [address] [place], [place] [address] Assigned OBGYN Provider 08/16/23 documented as of this encounter
--- OUTSIDE RECORDS SUMMARY | 2023-10-09 15:48 | XMS_ITS | Encounter Summary ---
Author Organization [facility] Address [facility] [place] [address] Care Team Providers Care Travograph Operator Name Role Phone Tre Ba MD Primary Care Provide r Reason for Visit * Reason Comments Ultrasound BPP-uncontrolled Typ e 2 DM Encounter Details Date Type Department Care Team (Late st Contact Info) Description 08/14/2023 4:00 PM CDT Office Visit [facility] [place] [address] [facility] [address] [place] [address] Cristiane Patel MD [address] [place] [address] Mitch Jernigan MD [address] [place], [place] [address] Pre-existing type 2 diabetes mellitus during in [...] for details of today's US at the [facility]. Mitch Jernigan MD Maternal- Medicine documented in this encounter Nursing Notes * Melissa Aguiar RN - 08/14/2023 4:00 PM CDT Patient reports good movement, denies contractions, leaking of fluid, or bleeding. BPP 8/8. Sheba's blood sugar values fasting 154 today [...] message for educator at [facility] in [place] where patient states she gets her care. Also called to primary OB clinic([facility]) at 1555 and spokewith JD Mtz. Discussed [...] was placed again to [facility] in [place]. Spoke with clinical trial educator Angelica. Patient confirmed with Angelica that she has her meal time insulin at home but is in need of her long acting insulin and has not been taking for one week as she was unable to get it at the pharmacy the day it was prescribed and was then out of town.Angelica [facility] [place] per patient request. Plan made with patient to get insulin tonight and if unable to obtain at the pharmacy she will call the Endocrinology clinic to reach the operations administrative assistant provider to assist her in getting her insulin. Patient agreeable to plan and verbalizes understanding of the importance of managing her blood glucose levels. Aneglica requested patient call in on Thursday to report glucose levels with a clinical trial educator. All patient questions answered. SBAR was done with Dr. Jernigan. documented in this encounter Plan of Treatment Not on file documented as of this encounter Visit Diagnoses Diagnosis Pre-existing type 2 diabetes mellitus during in third trimester- Primary Polyhydramnios affecting documented in this encounter Care Teams Travograph Operator Relationship Specialty Start Date End Date Tre Ba MD [facility] [address] PCP - General brokerage coordinator 01/15/22 09/19/23 documented as of this encounter
--- OUTSIDE RECORDS SUMMARY | 2023-10-09 15:48 | XMS_ITS | Encounter Summary ---
Author Organization [facility] Address [address] [place] [address]. [place] [address] Care Team Providers Care Oral Surgery Physician Name Role Phone Tre Ba MD Primary Care Provide r Bassem Pathak MD Unavailable Reason for Referral * Diagnostic Imaging Ultrasound (Routine) - Pending Review Specialty Diagnoses / Procedures Referred By Jamieac brandon Referred To Contact Radiology. Diagnoses Pre-existing type 2 diabetes mellitus during in third trimester Procedures [facility] Bassem Dhillon MD [address] [facility] [employer] [address] [address] Referral ID Status Reason Start Date Expiration Date V isits Requested Visits Authorized [id number] Pending Review 07/30/2023 07/29/2024 1 1 Reason for Visit * Diagnostic Imaging Ultrasound (Routine) - Pending Review Specialty Diagnoses / Procedures Referred By Temo taylor Referred To Contact Radiology. Diagnoses Pre-existing type 2 diabetes mellitus during in third trimester Procedures [facility] Bassem Dhillon MD [address] [address] Referral ID Status Reason Start Date Expiration Date V isits Requested Visits Authorized [id number] Pending Review 07/30/2023 07/29/2024 1 1 Encounter Details Date Type Department Care Team (Latest Contact Info) Description 09/08/2023 11:45 AM CDT - 09/08/2023 11:59 PM CDT Hospital Encounter [facility] [place] [address] [facility] [address] [place] [address] Bassem Pathak MD [address] [place] [address] Mitch Jernigan MD [address] [place] [address] Pre-existing type 2 diabetes mellitus [...] Procedure Name Priority Date/Time Associated Diagnosis Comments [facility] BPP SINGLE Routine 09/08/2023 12:22 PM CDT [...] ? Study Date: ??09/08/2023 12:01pm Pat. NO: ??[id number] ?Referring ??MD: HOMAR MEDRANO Site: ? Head Of Operation And Logistics: Gemma Pinzon RDMS : ??1985 ?Age: ?? [...] BPP at your office weekly and at [facility] weekly. Return to primary provider [...] WILDER Study Date: 09/08/2023 12:01pm Pat. NO: [id number] Referring MD: HOMAR MEDRANO Site: Head Of Operation And Logistics: Gemma Pinzon RDMS : 1985 Age: 37 [...] BPP at your office weekly and [facility]. Return to primary provider for continued care. Thank-you for the opportunity to participate in the care of this patient.If you have questions regarding today's evaluation or if we can be offurther service, please contact the Maternal- Medicine Center. anomalies may be present but not detected IMPRESSION ----- 1) Mild polyhydramnios. 2) BPP is reassuring. Basesm Pathak MD [facility] ORDERABLE S documented in this encounter Visit Diagnoses Diagnosis Pre-existing type 2 diabetes mellitus during in third trimester documented in this encounter Care Teams Oral Surgery Physician Relationship Specialty Start Date End Date Tre Ba MD [address] [place], [place] [address]YENNI PONCE [facility] [address] [place], [place] [id number] PCP - General cutter grinder 01/15/22 09/19/23 Bassem Pathak MD [address] [facility] [address] [place] [address] Assigned OBGYN Provider 08/16/23 documented as of this encounter
--- OUTSIDE RECORDS SUMMARY | 2023-10-09 15:48 | XMS_ITS | Encounter Summary ---
Author Organization [facility] Address [address] [facility] [place] [address] Care Team Providers Care Artist Color Separation Name Role Phone Tre Ba MD Primary Care Provide r Bassem Pathak MD Unavailable [phone] Encounter Details Date Type Department Care Team [...] on filedocumented in this encounter Care Teams Artist Color Separation Relationship Specialty Start Date End Date Tre Ba MD [facility] TERRY PONCE [facility] [address] [place] [address] PCP - General bench inspector 01/15/22 09/19/23 Bassem Pathak MD [address] [facility] [address] [place], [place] [address] Assigned OBGYN Provider 08/16/23 documented as of this encounter
--- OUTSIDE RECORDS SUMMARY | 2023-10-09 15:48 | XMS_ITS | Encounter Summary ---
Author Organization [place] Address [address] [facility] [place] [address] Care Team Providers Care Tube Station Attendant Name Role Phone Tre Ba MD Primary Care Provide r Bassem Pathak MD Unavailable Encounter Details Date Type Department Care Team [...] filedocumented in this encounter Care Teams Tube Station Attendant Relationship Specialty Start Date End Date Tre Ba MD [facility] TERRY PONCE [facility] [address] [place] [address] PCP - General tele rn 01/15/22 09/19/23 Bassem Pathak MD [address] [facility] [address] [place], [place] [address] Assigned OBGYN Provider 08/16/23 documented as of this encounter
--- OUTSIDE RECORDS SUMMARY | 2023-10-09 15:48 | XMS_ITS | Encounter Summary ---
Author Organization [facility] Address [address] [place] [address]. [place] [address] Care Team Providers Care Wholesale Loan Processor Name Role Phone Tre Ba MD Primary Care Provide r Reason for Visit * Reason Onset Date Comments Care 07/29/2023 Encounter Details Date Type Department Care Team (Late st Contact Info) Description 07/29/2023 Telephone [facility] [place] [address] [facility] [address] [place] [address] Carrie Smith, RN Care (/) [...] Smith RN - 07/29/2023 12:07 PM CDT [facility] called to discuss coordinating care between [facility] clinic and [facility]. Plan for [facility] to do once weekly NSTs in the beginning of the week starting at 32 weeks and [facility] will do BPPs toward the end of the week starting at 32 weeks. [facility]. Pt will need to schedule more weekly BPPs after 08/21/23. Carrie Smith, RN on 07/29/2023 at 12:11 PM documented in this encounter Plan of Treatment Not on file documented as of this encounter Visit Diagnoses Not on filedocumented in this encounter Care Teams Wholesale Loan Processor Relationship Specialty Start Date End Date Tre Ba MD [facility] [address] PCP - General junior recruiter 01/15/22 09/19/23 documented as of this encounter
--- OUTSIDE RECORDS SUMMARY | 2023-10-09 15:48 | XMS_ITS | Encounter Summary ---
Author Organization [facility] Address [address] [place] [address]. [place] [address] Care Team Providers Care Industrial Engineering Professor Name Role Phone Tre Ba MD Primary Care Provide r Bassem Pathak MD Unavailable [phone] Encounter Details Date Type Department Care Team ([facility] st Contact Info) Description 08/26/2023 Telephone [facility] [address] [place] [address] Cheri Peters LPN Social History [...] on filedocumented in this encounter Care Teams Industrial Engineering Professor Relationship Specialty Start Date End Date Tre Ba MD [address] [place] [address] PCP - General iron installer 01/15/22 09/19/23 Bassem Pathak MD [address] [place], [place] [address] Assigned OBGYN Provider 08/16/23 documented as of this encounter
--- OUTSIDE RECORDS SUMMARY | 2023-10-09 15:48 | XMS_ITS | Encounter Summary ---
Author Organization [place] Address [address] [place] [address]. [place] [address] Care Team Providers Care Livestock Yard Supervisor Name Role Phone Tre Ba MD Primary Care Provide r Reason for Referral * Diagnostic Imaging Ultrasound (Routine) - Pending Review Specialty Diagnoses / Procedures Referred By Contac t Referred To Contact Radiology. Diagnoses Pre-existing type 2 diabetes mellitus during in third trimester Procedures [facility] Bassem Dhillon MD [address] [facility] [address] [place] [address] Referral ID Status Reason Start Date Expiration Date V isits Requested Visits Authorized [id number] Pending Review 07/30/2023 07/29/2024 1 1 * Diagnostic Imaging Ultrasound (Routine) - Pending Review Specialty Diagnoses / Procedures Referred By Contac t Referred To Contact Radiology. Diagnoses Pre-existing type 2 diabetes mellitus during in third trimester Procedures Bassem Ackerman MD [address] [place] [address] Referral ID Status Reason Start Date Expiration Date V isits Requested Visits Authorized [id number] Pending Review 07/30/2023 07/29/2024 1 1 * Diagnostic Imaging Ultrasound (Routine) - Pending Review Specialty Diagnoses / Procedures Referred By Temo t Referred To Contact Radiology. Diagnoses Pre-existing type 2 diabetes mellitus during in third trimester Procedures [facility] BPP Single Bassem Pathak MD [address] [place] [address] Referral ID Status Reason Start Date Expiration Date V isits Requested Visits Authorized [id number] Pending Review 07/30/2023 07/29/2024 1 1 Reason for Visit * Reason Comments Ultrasound BPP: DM2 - poorly co ntrolled Encounter Details Date Type Department Care Team (Late st Contact Info) Description 07/30/2023 4:00 PM CDT Office Visit [facility] Maternal Medicine Center [address] [address] Bassem Pathak MD [address] [place], [place] [address] Pre-existing type 2 diabetes mellitus during in [...] 07/30/2023 4:00 PM CDT Patient presents to [facility] for BPP at 29w5d due to DM2 - poorly controlled. Positive movement. Denies LOF, vaginal bleeding or cramping/contractions. SBAR given to [facility] , see their note in Epic. documented in this encounter Plan of Treatment Not on file documented as of this encounter Results * [facility] BPP Single (09/08/2023 12:22 PM CDT) Anatomical Region Laterality Modality Ultrasound 09/08/2023 12:0 1 PM CDT Impressions 09/08/2023 12:24 PM CDT IMPRESSION ----- 1) Mild polyhydramnios. 2) BPP is reassuring. Narrative 09/08/2023 12:24 PM CDT ?BPP ----- Pat. Name: JACK EDWARDS ? Study Date: ??09/08/2023 12:01pm Pat. NO: ??[id number] ?Referring ??MD: HOMAR MEDRANO Site: ? Packaging Tech: AMALIA العراقي: ??1985 ?Age: ?? 37 ----- INDICATION ----- [...] BPP at your office weekly and at [facility] weekly. Return to primary provider for [...] EDWARDS Study Date: 09/08/2023 12:01pm Pat. NO: [id number] Referring MD: HOMAR MEDRANO Site: Packaging Tech: Gemma Pinzon RDMS : 1985 Age: 37 [...] [facility] your [facility] Return to primary provider for continued care. Thank-you for the opportunity to participate in the care of this patient.If you have questions regarding today's evaluation or if we can be offurther service, please contact the Maternal- Medicine Center. anomalies may be present but not detected IMPRESSION ----- 1) Mild polyhydramnios. 2) BPP is reassuring. Bassem Pathak MD [facility] US ORDERABLE S * [facility] BPP Single (09/02/2023 12:22 PM CDT) Anatomical Region Laterality Modality Ultrasound 09/02/2023 11:5 8 AM CDT Impressions 09/02/2023 4:11 PM CDT IMPRESSION ----- 1) Gonzalez intrauterine at 34w 4d gestational age. 2) The BPP is reassuring. 3) Mild polyhydramnios was again noted. Narrative 09/02/2023 4:11 PM CDT ?BPP ----- Pat. Name: JACK EDWARDS ? Study Date: ??09/02/2023 11:58am Pat. NO: ??[id number] ?Referring ??MD: HOMAR MEDRANO Site: ? Packaging Tech: Lashonda Barlow RDMS : ??1985 ?Age: ?? [...] surveillance with twice weekly BPP, alternating between [facility] and [facility]. Return to primary provider for [...] EDWARDS Study Date: 09/02/2023 11:58am Pat. NO: [id number] Referring MD: HOMAR MEDRANO Site: Packaging Tech: Lashonda Barlow RDMS : 1985 Age: 37 [...] Continue surveillance with twice [facility]. Return to primary provider for [...] was again noted. Bassem Pathak MD [facility] [place] [facility] BPP Single (08/25/2023 12:05 PM CDT) Anatomical Region Laterality Modality Ultrasound 08/25/2023 11:4 8 AM CDT Impressions 08/25/2023 1:03 PM CDT IMPRESSION ----- 1) Gonzalez intrauterine at 33w 3d gestational age. 2) The BPP is reassuring. 3) Mild polyhydramnios is noted. Narrative 08/25/2023 1:03 PM CDT ?BPP ----- Pat. Name: CORNELIA EDWARDSABEL ? Study Date: ??08/25/2023 11:48am Pat. NO: ??[id number] ?Referring ??MD: HOMAR MEDRANO Site: ? Packaging Tech: Micha Gage RDMS : ??1985 ?Age: ?? [...] surveillance with twice weekly BPP, alternating between [facility] and [facility]. Return to primary provider for [...] EDWARDS Study Date: 08/25/2023 11:48am Pat. NO: [id number] Referring MD: HOMAR MEDRANO Site: Packaging Tech: Micha Gage RDMS : 1985 Age: 37 [...] Continue surveillance with twice [facility], [facility]. Return to primary provider for [...] trimester documented in this encounter Care Teams Livestock Yard Supervisor Relationship Specialty Start Date End Date Tre Ba MD [address] [place] [address] PCP - General capital campaign fundraiser 01/15/22 09/19/23 documented as of this encounter
--- OUTSIDE RECORDS SUMMARY | 2023-10-09 15:48 | XMS_ITS | Encounter Summary ---
Author Organization [place] Address [address] [place] [address]. [place] [address] Care Team Providers Care Alternative Education Teacher Name Role Phone Tre Ba MD [...] on filedocumented in this encounter Care Teams Alternative Education Teacher Relationship Specialty Start Date End Date Tre Ba MD [facility] T[address] P[address]CE [address] [address] PCP - General vacuum tester cans 01/15/22 09/19/23 documented as of this encounter
--- OUTSIDE RECORDS SUMMARY | 2023-10-09 15:48 | XMS_ITS | Encounter Summary ---
Author Organization [place] Address [address] [place] [address]. [place] [address] Care Team Providers Care Baker Pastry Name Role Phone Tre Ba MD Primary Care Provide r Bassem Pathak MD Unavailable [phone] Reason for Visit * Reason Comments Ultrasound BPP-T2DM Encounter Details Date Type Department Care Team (Late st Contact Info) Description 09/08/2023 12:15 PM CDT Office Visit [facility] Maternal Medicine Center [place] [address] [facility] [address] [place] [address] Bassem Pathak MD [address] [place] [address] Mitch Jernigan MD [address] [place], [place] [address] Pre-existing type 2 diabetes mellitus during in [...] details of today's US at the [facility]. Mitch Jernigan MD Maternal- Medicine documented in this encounter Nursing Notes * Melissa Aguiar RN - 09/08/2023 12:15 PM CDT Patient reports good movement, reports irregular contractions, denies leaking of fluid, or bleeding. Reports blood sugar values are well controlled on insulin. SBAR given to [facility] , see their note in Epic. documented in this encounter Plan of Treatment Not on file documented as of this encounter Visit Diagnoses Diagnosis Pre-existing type 2 diabetes mellitus during in third trimester- Primary documented in this encounter Care Teams Baker Pastry Relationship Specialty Start Date End Date Tre Ba MD [facility] [address] [place] [address] PCP - General director of reservations 01/15/22 09/19/23 Bassem Pathak MD [address] [place] [address] Assigned OBGYN Provider 08/16/23 documented as of this encounter
--- OUTSIDE RECORDS SUMMARY | 2023-10-09 15:48 | XMS_ITS | Encounter Summary ---
Author Organization [place] Address [address] [place] [address]. [place] [address] Care Team Providers Care Clinical Rehabilitation Aide Name Role Phone Tre Ba MD Primary Care Provide r Bassem Pathak MD Unavailable [phone] Reason for Referral * Diagnostic Imaging Ultrasound (Routine) - Pending Review Specialty Diagnoses / Procedures Referred By Contac t Referred To Contact Radiology. Diagnoses Pre-existing type 2 diabetes mellitus during in third trimester Procedures [facility] US Comprehensive Single F/U Luz Elena Betts MD [address] [place] [address] Referral ID Status Reason Start Date Expiration Date V isits Requested Visits Authorized [id number] Pending Review 09/02/2023 09/01/2024 1 1 Reason for Visit * Diagnostic Imaging Ultrasound (Routine) - Pending Review Specialty Diagnoses / Procedures Referred By Contac brandon Referred To Contact Radiology. Diagnoses Pre-existing type 2 diabetes mellitus during in third trimester Procedures [facility] US Comprehensive Single F/U Luz Elena Betts MD [address] [address] Referral ID Status Reason Start Date Expiration Date V isits Requested Visits Authorized [id number] Pending Review 09/02/2023 09/01/2024 1 1 Encounter Details Date Type Department Care Team (Latest Contact Info) Description 09/15/2023 1:30 PM CDT - 09/15/2023 11:59 PM CDT Hospital Encounter [facility] [place] [address] [facility] [address] [place] [address] Mitch Jernigan MD [address] [facility] [address] [place] [address] Pre-existing type 2 diabetes mellitus [...] Procedure Name Priority Date/Time Associated Diagnosis Comments [facility] COMPREHENSIVE SINGLE F/U Routine 09/15/2023 2:12 PM CDT Pre-existing type 2 diabetes mellitus during in third trimester documented in this encounter Results * [facility] US Comprehensive Single F/U (09/15/2023 2:12 [...] ?Comp Follow Up ----- Pat. Name: GRACESHEBA Wall ? Study Date: ??09/15/2023 1:45pm Pat. NO: ??[id number] ?Referring ??MD: HOMAR MEDRANO Site: ? Business Analyst Sales Operations: Micha Gage RDMS : ??1985 ?Age: ?? [...] lb 2 ?oz EFW by ? Hadlock ([id number]) ANATOMY ----- The following structures appear normal: [...] WILDER Study Date: 09/15/2023 1:45pm Pat. NO: [id number] Referring MD: HOMAR MEDRANO Site: Business Analyst Sales Operations: Micha Gage RDMS : 1985 Age: 37 [...] EFW (lb,oz) 8 lb 2oz EFW by Hadlock([id number]) ANATOMY ----- The following structures appear normal: [...] is reassuring. Luz Elena Betts MD IMG [facility] US ORDERABLE S documented in this encounter Visit Diagnoses Diagnosis Pre-existing type 2 diabetes mellitus during in third trimester documented in this encounter Care Teams Clinical Rehabilitation Aide Relationship Specialty Start Date End Date Tre Ba MD [facility] [facility] [address] [place] [address] PCP - General rn first assistant 01/15/22 09/19/23 Bassem Pathak MD [address] [facility] [address] [place], [place] [address] Assigned OBGYN Provider 08/16/23 documented as of this encounter
--- OUTSIDE RECORDS SUMMARY | 2023-10-09 15:48 | XMS_ITS | Encounter Summary ---
Author Organization [place] Address [address] [facility] [place] [address] Care Team Providers Care Slinger Sequins Name Role Phone Tre Ba MD Primary Care Provide r Reason for Visit * Reason Onset Date Comments Results 08/03/2023 Low Risk Expande d NIPT Encounter Details Date Type Department Care Team (Late st Contact Info) Description 08/03/2023 Telephone [facility] Maternal Medicine Center [place] [id number] [facility] [address] [place] [address] Laura Abdi, [address] [place] [address] 400 [place] [address] Results (Low Risk Expanded NIPT) [...] on filedocumented in this encounter Care Teams Slinger Sequins Relationship Specialty Start Date End Date Tre Ba MD [facility] [address] [facility] [address] [place] [address] PCP - General stretcher and drier 01/15/22 09/19/23 documented as of this encounter
--- OUTSIDE RECORDS SUMMARY | 2023-10-09 15:48 | XMS_ITS | Encounter Summary ---
Author Organization [place] Address [address] [facility] [place] [address] Care Team Providers Care Pvc Loader Name Role Phone Tre Ba MD Primary Care Provide r Bassem Pathak MD Unavailable [phone] Encounter Details Date Type Department Care Team [...] on filedocumented in this encounter Care Teams Pvc Loader Relationship Specialty Start Date End Date Tre Ba MD [facility] T[address]CE [facility] [address] [place] [address] PCP - General national sales 01/15/22 09/19/23 Bassem Pathak MD [address] [facility] [address] [place], [place] [address] Assigned OBGYN Provider 08/16/23 documented as of this encounter
--- OUTSIDE RECORDS SUMMARY | 2023-10-09 15:48 | XMS_ITS | Encounter Summary ---
Author Organization [employer] Address [facility] [place] [address] Care Team Providers Care Sr. Pricing Analyst Name Role Phone Tre Ba MD Primary Care Provide r Encounter Details Date Type Department Care Team (Late st Contact Info) Description 07/24/[address] [facility] Info Mgmt [facility] [address] [place] [address] Scan, Non-Provider Social History Tobacco [...] on filedocumented in this encounter Care Teams Sr. Pricing Analyst Relationship Specialty Start Date End Date Tre Ba MD Michael JOHNSON [address] [place] [address] PCP - General paper wood cutter 01/15/22 09/19/23 documented as of this encounter
--- OUTSIDE RECORDS SUMMARY | 2023-10-09 15:48 | XMS_ITS | Encounter Summary ---
Author Organization [place] Address [address] [place] [address]. [place] [address] Care Team Providers Care Box Maker Name Role Phone Tre Ba MD Primary Care Provide r Bassem Pathak MD Unavailable [phone] Reason for Referral * Diagnostic Imaging Ultrasound (Routine) - Pending Review Specialty Diagnoses / Procedures Referred By Contac t Referred To Contact Radiology. Diagnoses Diabetes mellitus, type 2 (H) Polyhydramnios affecting Procedures [facility] US Comprehensive Single F/U Cristiane Patel MD [address] [facility] [address] [address] Referral ID Status Reason Start Date Expiration Date V isits Requested Visits Authorized [id number] Pending Review 07/24/2023 07/23/2024 1 1 Reason for Visit * Diagnostic Imaging Ultrasound (Routine) - Pending Review Specialty Diagnoses / Procedures Referred By Contac t Referred To Contact Radiology. Diagnoses Diabetes mellitus, type 2 (H) Polyhydramnios affecting Procedures [facility] US Comprehensive Single F/U Cristiane Patel MD [address] [address] Referral ID Status Reason Start Date Expiration Date V isits Requested Visits Authorized [id number] Pending Review 07/24/2023 07/23/2024 1 1 Encounter Details Date Type Department Care Team (Latest Contact Info) Description 08/21/2023 11:45 AM CDT - 08/21/2023 11:59 PM CDT Hospital Encounter [facility] Maternal Medicine Center [place] [address] [facility] [address] [place] [address] Cristiane Patel MD [address] [place] [address] Mitch Jernigan MD [address] [place] [address] Polyhydramnios affecting Discharge Disposition: Home [...] Procedure Name Priority Date/Time Associated Diagnosis Comments [facility] US COMPREHENSIVE SINGLE F/U Routine 08/21/2023 12:39 PM CDT Polyhydramnios affecting documented in this encounter Results * [facility] US Comprehensive Single F/U (08/21/2023 [...] Pat. Name: GRACESHEBA Wall ? Study Date: ??08/21/2023 11:58am Pat. NO: ??[id number] ?Referring ??MD: HOMAR MEDRANO Site: ? Bag Machine Operator: Yamila Dutton RDMS : ??1985 ?Age: [...] lb 4 ?oz EFW by ? Hadlock ([id number]) Head / Face / Neck Biometry: Sustainable Communities Designer ?4.4 ? mm ANATOMY ----- The following [...] Heart / Thorax ?RVOT view. LVOT view. 7-hwxxdt-lbhizpx view. Spine ?Cervical spine. sex: male. MATERNAL STRUCTURES ----- Cervix ?Suboptimal Right Ovary ?Not examined Left Ovary ?Not examined RECOMMENDATION ----- We discussed the findings on today's ultrasound with the patient. The patient has the following ultrasounds already scheduled: 1) BPP once weekly at your clinic. 2) BPP once weekly at [facility]. 3) echo on 08/28/23 with Pediatric Cardiology. 4) growth assessment at [facility] in 4 weeks. Given the [...] WILDER Study Date: 08/21/2023 11:58am Pat. NO: [id number] Referring MD: HOMAR MEDRANO Site: Bag Machine Operator: Yamila Dutton RDMS : 1985 Age: [...] EFW (lb,oz) 6 lb 4oz EFW by Hadlock([id number]) Head / Face / Neck Biometry: Sustainable Communities Designer 4.4mm ANATOMY ----- The following structures appear normal: Head / Neck Cranium. Head size. Head shape.Lateral ventricles. Midline falx. Cavum septi pellucidi. Cerebellum.Cisterna magna. Thalami. Face Profile. Heart / Thorax 4-chamber view. Diaphragm. Abdomen Stomach. Kidneys. Bladder. Spine Thoracic spine. Lumbar spine.Sacral spine. The following structures were documented previously: Face Lips. Nose. Heart / Thorax RVOT view. LVOT view. 1-cmrmln-nkofaylgjgh. Spine Cervical spine. sex: male. MATERNAL STRUCTURES ----- Cervix Suboptimal Right Ovary Not examined Left Ovary Not examined RECOMMENDATION ----- We discussed the findings on today's ultrasound with the patient. The patient has the following ultrasounds already scheduled: 1) BPP once weekly at your clinic. 2) BPP once weekly at [facility]. 3) echo on 08/28/23 with Pediatric Cardiology. 4) growth assessment at [facility] in 4 weeks. Given the [...] affecting documented in this encounter Care Teams Box Maker Relationship Specialty Start Date End Date Tre Ba MD [address] [facility] [address] [place] [address] PCP - General records management manager 01/15/22 09/19/23 Bassem Pathak MD [address] [place] [address] Assigned OBGYN Provider 08/16/23 documented as of this encounter
--- OUTSIDE RECORDS SUMMARY | 2023-10-09 15:48 | XMS_ITS | Encounter Summary ---
Author Organization [place] Address [address] [facility] [place] [address] Care Team Providers Care Diamond Sander Name Role Phone Tre Ba MD Primary Care Provide r Bassem Pathak MD Unavailable [phone] Reason for Visit * Reason Comments Ultrasound RL2/BPP-T2DM on insu mani Encounter Details Date Type Department Care Team (Late st Contact Info) Description 09/15/2023 2:00 PM CDT Office Visit [facility] Maternal Medicine Center [place] [address] [facility] [address] [place] [address] Mitch Jernigan MD [address] [place] [address] Pre-existing type 2 diabetes mellitus [...] for details of today's US at the [facility] Center [facility]. Mitch Jernigan MD Maternal- Medicine documented in this encounter Nursing Notes * Carrie Smith RN - 09/15/2023 2:00 PM CDT Patient presents to [facility] for RL2/BPP at 36w3d due to T2DM on insulin. Positive movement. Denies LOF, vaginal bleeding or cramping/contractions. SBAR given to [facility] MD, see their note in Epic. documented in this encounter Plan of Treatment Not on file documented as of this encounter Visit Diagnoses Diagnosis Pre-existing type 2 diabetes mellitus during in third trimester- Primary Polyhydramnios affecting documented in this encounter Care Teams Diamond Sander Relationship Specialty Start Date End Date Tre Ba MD [facility] [address] [facility] [address] [place] [address] PCP - General fisher mussel 01/15/22 09/19/23 Bassem Pathak MD [address] [place] [address] Assigned OBGYN Provider 08/16/23 documented as of this encounter
--- OUTSIDE RECORDS SUMMARY | 2023-10-09 15:48 | XMS_ITS | Encounter Summary ---
Author Organization [place] Address [address] [place] [address]. [place] [address] Care Team Providers Care Thread Spinner Name Role Phone Tre Ba MD Primary Care Provide r Reason for Referral * Diagnostic Imaging Ultrasound (Routine) - Pending Review Specialty Diagnoses / Procedures Referred By Contac t Referred To Contact Radiology. Diagnoses Diabetes mellitus, type 2 (H) Polyhydramnios affecting Procedures [facility] Cristiane Rubin MD [address] [place] [address] Referral ID Status Reason Start Date Expiration Date V isits Requested Visits Authorized [id number] Pending Review 07/24/2023 07/23/2024 1 1 Reason for Visit * Diagnostic Imaging Ultrasound (Routine) - Pending Review Specialty Diagnoses / Procedures Referred By Conthenrietta taylor Referred To Contact Radiology. Diagnoses Diabetes mellitus, type 2 (H) Polyhydramnios affecting Procedures [facility] Cristiane Rubin MD [address] [place] [address] Referral ID Status Reason Start Date Expiration Date V isits Requested Visits Authorized [id number] Pending Review 07/24/2023 07/23/2024 1 1 Encounter Details Date Type Department Care Team (Latest Contact Info) Description 07/30/2023 3:25 PM CDT - 07/30/2023 11:59 PM CDT Hospital Encounter [facility] Maternal Medicine Center [address] [place] [address] Bassem Pathak MD [address] [place] [address] Polyhydramnios affecting Discharge Disposition: Home [...] Procedure Name Priority Date/Time Associated Diagnosis Comments [facility] BPP SINGLE Routine 07/30/2023 3:46 PM CDT Polyhydramnios affecting documented in this encounter Results * [facility] BPP Single (07/30/2023 3:46 PM CDT) [...] ? Study Date: ??07/30/2023 3:27pm Pat. NO: ??[id number] ?Referring ??MD: HOMAR MEDRANO Site: ??[place] ? Clam Dredge Boat Captain: Lashonda Barlow RDMS : ??1985 ?Age: ?? [...] with MFM and once with PCP in [place]. Recommend delivery for GDM A2 and pregestational: ? Well controlled: [id number]-[id number] ? Poorly controlled: [id number]-87n8c ? Failed in-hospital attempt at control: [id number]-88e1v Thank you for the opportunity to participate in the care of this patient. If you have questions regarding today's evaluation or if we can be of further service, please contact the Maternal- Medicine Center. anomalies may be present but not detected Procedure Note Bassem Pathak MD - 07/30/2023 BPP ----- Pat. Name: SHEBA WILDER Study Date: 07/30/2023 3:27pm Pat. NO: [id number] Referring MD: HOMAR MEDRANO Site: [facility] Clam Dredge Boat Captain: Lashonda Barlow RDMS : 1985 Age: 37 [...] here with MFM and once withPCP in [place]. Recommend delivery for GDM A2 and pregestational: ? Well controlled: [id number]-17m3m ? Poorly controlled: 41k8f-43w0a ? Failed in-hospital attempt at control: 90g8m-84u3b Thank you for the opportunity to participate [...] affecting documented in this encounter Care Teams Thread Spinner Relationship Specialty Start Date End Date Tre Ba MD [address] [place] [address] PCP - General ultrasound sonographer 01/15/22 09/19/23 documented as of this encounter
--- OUTSIDE RECORDS SUMMARY | 2023-10-09 15:48 | XMS_ITS | Encounter Summary ---
Author Organization [place] Address [address] [place] [address]. [place] [address] Care Team Providers Care Security Supervisor Name Role Phone Tre Ba MD Primary Care Provide r Bassem Pathak MD Unavailable [phone] Reason for Referral * Diagnostic Imaging Ultrasound (Routine) - Pending Review Specialty Diagnoses / Procedures Referred By Jamieac brandon Referred To Contact Radiology. Diagnoses Pre-existing type 2 diabetes mellitus during in third trimester Procedures [facility] Bassem Dhillon MD 606 [facility] [employer] [address] [address] Referral ID Status Reason Start Date Expiration Date V isits Requested Visits Authorized [id number] Pending Review 07/30/2023 07/29/2024 1 1 Reason for Visit * Diagnostic Imaging Ultrasound (Routine) - Pending Review Specialty Diagnoses / Procedures Referred By Temo taylor Referred To Contact Radiology. Diagnoses Pre-existing type 2 diabetes mellitus during in third trimester Procedures [facility] Bassem Dhillon MD [address] [address] Referral ID Status Reason Start Date Expiration Date V isits Requested Visits Authorized [id number] Pending Review 07/30/2023 07/29/2024 1 1 Encounter Details Date Type Department Care Team (Latest Contact Info) Description 09/02/2023 11:45 AM CDT - 09/02/2023 11:59 PM CDT Hospital Encounter [facility] Maternal Medicine Center [place] [address] [facility] [address] [place] [address] Luz Elena Betts MD [address] [place] [address] Pre-existing type 2 diabetes mellitus [...] Procedure Name Priority Date/Time Associated Diagnosis Comments [facility] BPP SINGLE Routine 09/02/2023 12:22 PM CDT Pre-existing type 2 diabetes mellitus during in third trimester documented in this encounter Results * [facility] BPP Single (09/02/2023 12:22 PM CDT) Anatomical Region Laterality Modality Ultrasound 09/02/2023 11:5 8 AM CDT Impressions 09/02/2023 4:11 PM CDT IMPRESSION ----- 1) Gonzalez intrauterine at 34w 4d gestational age. 2) The BPP is reassuring. 3) Mild polyhydramnios was again noted. Narrative 09/02/2023 4:11 PM CDT ?BPP ----- Pat. Name: SHEBA WILDER ? Study Date: ??09/02/2023 11:58am Pat. NO: ??[id number] ?Referring ??MD: HOAMR MEDRANO Site: ? Electrical High Tension Tester: Lashonda Barlow RDMS : ??1985 ?Age: ?? [...] surveillance with twice weekly BPP, alternating between [facility] and [facility]. Return to primary provider for [...] WILDER Study Date: 09/02/2023 11:58am Pat. NO: [id number] Referring MD: HOMAR MEDRANO Site: Electrical High Tension Tester: Lashonda Barlow RDMS : 1985 Age: 37 [...] Continue surveillance with twice weekly [facility], [facility]. Return to primary provider for [...] polyhydramnios was again noted. Bassem Pathak MD [facility] ORDERABLE S documented in this encounter Visit Diagnoses Diagnosis Pre-existing type 2 diabetes mellitus during in third trimester documented in this encounter Care Teams Security Supervisor Relationship Specialty Start Date End Date Tre Ba MD [address] [place] [address] [facility] [address] [place], [place] [id number] PCP - General tafe lecturer 01/15/22 09/19/23 Bassem Pathak MD 606 [address] 400 [place] [address] Assigned OBGYN Provider 08/16/23 documented as of this encounter
--- OUTSIDE RECORDS SUMMARY | 2023-10-09 15:48 | XMS_ITS | Encounter Summary ---
Author Organization [place] Address [facility] [place] [address] Care Team Providers Care Medical Art Therapist Name Role Phone Tre Ba MD Primary Care Provide r Bassem Pathak MD Unavailable [phone] Reason for Visit * Reason Comments Ultrasound BPP- T2DM on insulin , mild poly Encounter Details Date Type Department Care Team (Late st Contact Info) Description 08/25/2023 12:15 PM CDT Office Visit [facility] Maternal Medicine Center [place] [address] [facility] [address] [place] [address] Bassem Pathak MD [address] [place] [address] Luz Elena Betts MD [address] [place], [place] [id number] Pre-existing type 2 diabetes mellitus during in [...] fetus documented in this encounter Care Teams Medical Art Therapist Relationship Specialty Start Date End Date Tre Ba MD [facility] [address] [facility] 100 [place] [address] PCP - General sausage inspector 01/15/22 09/19/23 Bassem Pathak MD [address] [address] [place] [address] Assigned OBGYN Provider 08/16/23 documented as of this encounter
--- OUTSIDE RECORDS SUMMARY | 2023-10-09 15:48 | XMS_ITS | Encounter Summary ---
Author Organization [place] Address [facility] [place] [address] Care Team Providers Care Urban Sociologist Name Role Phone Tre Ba MD Primary Care Provide r Bassem Pathak MD Unavailable Reason for Visit * Reason Comments Ultrasound RL2/BPP- DM2 poor co ntrol Encounter Details Date Type Department Care Team (Late st Contact Info) Description 08/21/2023 12:15 PM CDT Office Visit [facility] Maternal Medicine Center [place] [address] [facility] [address] [place] [address] Cristiane Patel MD [address] [place] [address] Mitch Jernigan MD [address] [place] [address] Pre-existing type 2 diabetes mellitus [...] for details of today's US at the [facility]. Mitch Jernigan MD Maternal- Medicine documented in this encounter Nursing Notes * Laura Vila, JD - 08/21/2023 12:15 PM CDT Pt at [facility] for ultrasound- see detailed report under imaging tab. Pt reports positive movement, denies other concerns at this time. Has been able to picker tender insulin- reports fasting value of 93,after meal 115. SBAR given to MD. documented in this encounter Plan of Treatment Not on file documented as of this encounter Visit Diagnoses Diagnosis Pre-existing type 2 diabetes mellitus during in third trimester- Primary Polyhydramnios affecting documented in this encounter Care Teams Urban Sociologist Relationship Specialty Start Date End Date Tre Ba MD [facility] 100 [place] [address] PCP - General supply chain logistics manager 01/15/22 09/19/23 Bassem Pathak MD [address] [place] [address] 400 [place] [address] Assigned OBGYN Provider 08/16/23 documented as of this encounter
--- OUTSIDE RECORDS SUMMARY | 2023-10-09 15:48 | XMS_ITS | Encounter Summary ---
Author Organization [place] Address [address] [facility] [place] [address] Care Team Providers Care Shell Reprint Operator Name Role Phone Tre Ba MD [...] on filedocumented in this encounter Care Teams Shell Reprint Operator Relationship Specialty Start Date End Date Tre Ba MD [facility] T[address] PONCE [facility] [address] [place] [address] PCP - General pediatric social worker 01/15/22 09/19/23 Bassem Pathak MD [address] [facility] 400 [place], [place] [address] Assigned OBGYN Provider 08/16/23 documented as of this encounter
--- OUTSIDE RECORDS SUMMARY | 2023-10-09 15:48 | XMS_ITS | Encounter Summary ---
Author Organization [place] Address [address] [place] [address]. [place] [address] Care Team Providers Care Instructional Systems Specialist Name Role Phone Tre Ba MD [...] on filedocumented in this encounter Care Teams Instructional Systems Specialist Relationship Specialty Start Date End Date Tre Ba MD [facility] [address] [address] PCP - General corporation secretary 01/15/22 09/19/23 documented as of this encounter
--- OUTSIDE RECORDS SUMMARY | 2023-10-09 15:48 | XMS_ITS | Encounter Summary ---
Author Organization [place] Address [address] [facility] [place] [address] Care Team Providers Care Basic Acoustic Analyst Name Role Phone Tre Ba MD [...] on filedocumented in this encounter Care Teams Basic Acoustic Analyst Relationship Specialty Start Date End Date Tre Ba MD [facility] [address] [facility] 100 [place] [address] PCP - General coil spring assembler 01/15/22 09/19/23 Bassem Pathak MD [address] [facility] 400 [place], [place] [address] Assigned OBGYN Provider 08/16/23 documented as of this encounter
--- OUTSIDE RECORDS SUMMARY | 2023-10-09 15:48 | XMS_ITS | Encounter Summary ---
Author Organization [place] Address [facility] [place] [address] Care Team Providers Care Stock Holder Name Role Phone Tre Ba MD Primary Care Provide r Bassem Pathak MD Unavailable [phone] Reason for Referral * Diagnostic Imaging Ultrasound (Routine) - Pending Review Specialty Diagnoses / Procedures Referred By Temo taylor Referred To Contact Radiology. Diagnoses Pre-existing type 2 diabetes mellitus during in third trimester Procedures [facility] US Comprehensive Single F/U Luz Elena Betts MD [address] [place] [address] Referral ID Status Reason Start Date Expiration Date V isits Requested Visits Authorized [id number] Pending Review 09/02/2023 09/01/2024 1 1 Reason for Visit * Reason Comments Ultrasound BPP- GDMA2, BMI>30 Encounter Details Date Type Department Care Team (Late st Contact Info) Description 09/02/2023 12:15 PM CDT Office Visit [facility] Maternal Medicine Center [place] [address] [facility] [address] [place] [address] Luz Elena Betts MD [address] [place] [address] Pre-existing type 2 diabetes mellitus [...] patient on BPP, POC. SBAR given to MFM , see their note in Epic. Maria R Cody RN documented in this encounter Plan of Treatment Not on file documented as of this encounter Results * [facility] Comprehensive Single F/U (09/15/2023 2:12 PM CDT) [...] ? Study Date: ??09/15/2023 1:45pm Pat. NO: ??[id number] ?Referring ??MD: HOMAR MEDRANO Site: ? Live In Housekeeper Nanny: Micha Gage RDMS : ??1985 ?Age: ?? [...] 34w 6d ? Hadlock Weight Calculation: EFW ?3,575 ?g ?98% ? Hadlock EFW (lb,oz) ?8 lb 2 ?oz EFW by ? Hadlock ([id number]) ANATOMY ----- The following structures appear normal: Heart / Thorax ?Cardiac rhythm. sex: male. BIOPHYSICAL PROFILE ----- 2: breathing movements 2: Gross body movements 2: tone 2: Amniotic fluid volume / Biophysical profile score Interpretation: normal MATERNAL STRUCTURES [...] WILDER Study Date: 09/15/2023 1:45pm Pat. NO: [id number] Referring MD: HOMAR MEDRANO Site: Live In Housekeeper Nanny: Micha Gage RDMS : 1985 Age: 37 [...] EFW (lb,oz) 8 lb 2oz EFW by Hadlock([id number]-FL) ANATOMY ----- The following structures appear normal: [...] trimester documented in this encounter Care Teams Stock Holder Relationship Specialty Start Date End Date Tre Ba MD [address] [facility] 100 [place] [address] PCP - General director clinical data 01/15/22 09/19/23 Bassem Pathak MD [address] [place], [place] [address] Assigned OBGYN Provider 08/16/23 documented as of this encounter
--- OUTSIDE RECORDS SUMMARY | 2023-10-09 15:48 | XMS_ITS | Encounter Summary ---
Author Organization [place] Address [address] [facility] [place] [address] Care Team Providers Care X Ray Inspector Name Role Phone Tre Ba MD Primary Care Provide r Encounter Details Date Type Department Care Team (Late st Contact Info) Description 07/24/2023 2:[address] [facility] [address] [place] [phone] Cristiane Patel MD [address] [place] [address] Multigravida of advanced maternal age [...] (07/24/2023 2:49 PM CDT) See Scanned Result [employer] NON-INVASIVE SCREENING PREQUEL-Scann ed 08/02/2023 7:16 PM CDT [employer] Blood STRUCTURE OF RIGHT UPPER LIMB / Unknown Venipuncture / Unknown 07/24/2023 2:49 PM CDT 07/24/2023 2:49 PM CDT Laura Abdi [facility] - BLOOD ORDERABL ES [employer] [address] [phone] documented in this encounter Visit Diagnoses Diagnosis Multigravida of advanced maternal age in third trimester documented in this encounter Care Teams X Ray Inspector Relationship Specialty Start Date End Date [facility] [address] [phone] PCP - General carrot buncher 01/15/22 09/19/23 documented as of this encounter
--- OUTSIDE RECORDS SUMMARY | 2023-10-09 15:48 | XMS_ITS | Encounter Summary ---
Author Organization [place] Address [address] [place] [address]. [place] [address] Care Team Providers Care Grinder Set Up Operator Universal Name Role Phone Tre Ba MD Primary Care Provide r Bassem Pathak MD Unavailable Reason for Referral * Diagnostic Imaging Ultrasound (Routine) - Pending Review Specialty Diagnoses / Procedures Referred By Jamieac brandon Referred To Contact Radiology. Diagnoses Pre-existing type 2 diabetes mellitus during in third trimester Procedures [facility] Bassem Dhillon MD 606 [facility] [employer] [address] [address] Referral ID Status Reason Start Date Expiration Date V isits Requested Visits Authorized [id number] Pending Review 07/30/2023 07/29/2024 1 1 Reason for Visit * Diagnostic Imaging Ultrasound (Routine) - Pending Review Specialty Diagnoses / Procedures Referred By Temo taylor Referred To Contact Radiology. Diagnoses Pre-existing type 2 diabetes mellitus during in third trimester Procedures [facility] Bassem Dhillon MD [address] [address] Referral ID Status Reason Start Date Expiration Date V isits Requested Visits Authorized [id number] Pending Review 07/30/2023 07/29/2024 1 1 Encounter Details Date Type Department Care Team (Latest Contact Info) Description 08/25/2023 11:45 AM CDT - 08/25/2023 11:59 PM CDT Hospital Encounter [facility] Maternal Medicine Center [place] [address] [facility] [address] [place] [address] Bassem Pathak MD [address] [place] [address] Luz Elena Betts MD [address] [place] [address] Pre-existing type 2 diabetes mellitus [...] Name Priority Date/Time Associated Diagnosis Comments [facility] BPP SINGLE Routine 08/25/2023 12:05 PM CDT Pre-existing type 2 diabetes mellitus during in third trimester documented in this encounter Results * [facility] BPP Single (08/25/2023 12:05 PM CDT) Anatomical Region Laterality Modality Ultrasound 08/25/2023 11:4 8 AM CDT Impressions 08/25/2023 1:03 PM CDT IMPRESSION ----- 1) Gonzalez intrauterine at 33w 3d gestational age. 2) The BPP is reassuring. 3) Mild polyhydramnios is noted. Narrative 08/25/2023 1:03 PM CDT ?BPP ----- Pat. Name: SHEBA WILDER ? Study Date: ??08/25/2023 11:48am Pat. NO: ??[id number] ?Referring ??MD: HOMAR MEDRANO Site: ? Information Manager: Micha Gage RDMS : ??1985 ?Age: [...] with twice weekly BPP, alternating between [facility] and [facility]. Return to primary provider for [...] WILDER Study Date: 08/25/2023 11:48am Pat. NO: [id number] Referring MD: HOMAR MEDRANO Site: Information Manager: Micha Gage RDMS : 1985 Age: [...] surveillance with twice [facility]. Return to primary provider for [...] trimester documented in this encounter Care Teams Grinder Set Up Operator Universal Relationship Specialty Start Date End Date Tre Ba MD [address] [place], [place] [phone] PCP - General bias cutter helper 01/15/22 09/19/23 Bassem Pathak MD [address] [place], [place] [address] Assigned OBGYN Provider 08/16/23 documented as of this encounter
--- OUTSIDE RECORDS SUMMARY | 2023-10-09 15:48 | XMS_ITS | Encounter Summary ---
Author Organization [place] Address [address] [place] [address]. [place] [address] Care Team Providers Care Travel Clerk Name Role Phone Tre Ba MD Primary Care Provide r Reason for Referral * Diagnostic Imaging Ultrasound (Routine) - Pending Review Specialty Diagnoses / Procedures Referred By Contac t Referred To Contact Radiology. Diagnoses Diabetes mellitus, type 2 (H) Polyhydramnios affecting Procedures [facility] Cristiane Rubin MD [address] [place] [address] Referral ID Status Reason Start Date Expiration Date V isits Requested Visits Authorized [id number] Pending Review 07/24/2023 07/23/2024 1 1 Reason for Visit * Diagnostic Imaging Ultrasound (Routine) - Pending Review Specialty Diagnoses / Procedures Referred By Conthenrietta taylor Referred To Contact Radiology. Diagnoses Diabetes mellitus, type 2 (H) Polyhydramnios affecting Procedures [facility] Cristiane Rubin MD [address] [place] [address] Referral ID Status Reason Start Date Expiration Date V isits Requested Visits Authorized [id number] Pending Review 07/24/2023 07/23/2024 1 1 Encounter Details Date Type Department Care Team (Latest Contact Info) Description 08/14/2023 3:30 PM CDT - 08/14/2023 11:59 PM CDT Hospital Encounter [facility] Maternal Medicine [facility] [place] [address] [facility] [address] [place] [address] Cristiane Patel MD [address] [place] [address] Mitch Jernigan MD [address] [place] [address] Polyhydramnios affecting Discharge Disposition: Home [...] [facility] BPP SINGLE Routine 08/14/2023 3:54 PM CDT Polyhydramnios affecting documented in this encounter Results * [facility] BPP Single (08/14/2023 3:54 PM CDT) Anatomical Region Laterality Modality Ultrasound 08/14/2023 3:35 PM CDT Impressions 08/14/2023 4:06 PM CDT IMPRESSION ----- 1) Mild polyhydramnios. 2) BPP is reassuring. Narrative 08/14/2023 4:06 PM CDT ?BPP ----- Pat. Name: SHEBA WILDER ? Study Date: ??08/14/2023 3:35pm Pat. NO: ??[id number] ?Referring ??MD: HOMAR MEDRANO Site: ? Selenium Plant Operator: Gemma Pinzon : ??1985 ?Age: ?? 37 ----- INDICATION [...] not contacted your office or her manager site. Currently we are not reviewing her blood [...] WILDER Study Date: 08/14/2023 3:35pm Pat. NO: [id number] Referring MD: HOMAR MEDRANO Site: Selenium Plant Operator: Gemma Pinzon RDMS : 1985 Age: 37 [...] has notcontacted your office or her manager site. Currently we are not reviewing her blood [...] affecting documented in this encounter Care Teams Travel Clerk Relationship Specialty Start Date End Date Tre Ba MD [address] [address] PCP - General senior corporate accountant 01/15/22 09/19/23 documented as of this encounter
--- OUTSIDE RECORDS SUMMARY | 2023-10-09 15:49 | XMS_ITS | Encounter Summary ---
Author Organization [place] Address [address] [place] [address]. [place] [address] Care Team Providers Care Client Executive Name Role Phone Tre Ba MD Primary Care Provide r Reason for Referral * Diagnostic Imaging Ultrasound (Routine) - Pending Review Specialty Diagnoses / Procedures Referred By Contac t Referred To Contact Radiology. Diagnoses related condition, antepartum Procedures [facility] US Comprehensive Single Ilene Medrano APRN CNP [facility] [address] [place] [address] Referral ID Status Reason Start Date Expiration Date V isits Requested Visits Authorized [id number] Pending Review 07/03/2023 07/02/2024 1 1 Reason for Visit * Diagnostic Imaging Ultrasound (Routine) - Pending Review Specialty Diagnoses / Procedures Referred By Contac t Referred To Contact Radiology. Diagnoses related condition, antepartum Procedures [facility] US Comprehensive Single Ilene Medrano APRN CNP [facility] [address] [place] [address] Referral ID Status Reason Start Date Expiration Date V isits Requested Visits Authorized [id number] Pending Review 07/03/2023 07/02/2024 1 1 Encounter Details Date Type Department Care Team (Latest Contact Info) Description 07/24/2023 12:50 PM CDT - 07/24/2023 11:59 PM CDT Hospital Encounter [facility] M[facility] Medicine [facility] [place] [address] [facility] [address] [place] [address] Cristiane Patel MD [address] [place] [address] related condition, antepartum Discharge Disposition: [...] Procedure Name Priority Date/Time Associated Diagnosis Comments [facility] COMPREHENSIVE SINGLE Routine 07/24/2023 2:13 PM CDT related condition, antepartum documented in this encounter Results * [facility] US Comprehensive Single (07/24/2023 2:13 PM [...] ? Study Date: ??07/24/2023 1:32pm Pat. NO: ??[id number] ?Referring ??MD: ILENE MEDRANO Site: ??[place] ? Family Manager: Sujatha Joyce RDMS : ??1985 ?Age: [...] 3 lb 10 ?oz EFW by ?Josh ([id number]-FL) Head / Face / Neck Biometry: Management Scientist ? 3.6 ? mm CM ?5.7 ? [...] cava. Inferior vena cava. 3-vessel ? view. 8-fozlcf-djylhjo view. Cardiac position. Cardiac size. Cardiac rhythm. [...] are between 220-240. She is following a educator senior clinical and has met with a anesthesia associate. No one has started her on [...] medical record, and communicating with other health specialist wound care and/or care coordination. Please see note for details. Procedure Note Cristiane Patel MD - 07/24/2023 Comprehensive ----- PatPalak Name: SHEBA WILDER Study Date: 07/24/2023 1:32pm Pat. NO: [id number] Referring MD: ILENE MEDRANO Site: [facility] Family Manager: Sujatha Joyce RDMS : 1985 Age: [...] 3 lb 10 oz EFW by Hadlock ([id number]-[id number]-FL) Head / Face / Neck Biometry: Management Scientist 3.6 mm CM 5.7 mm Nasal bone [...] Superior venacava. Inferior vena cava. 3-vessel view. 6-qcuuhj-kxrkhus view.Cardiac position. Cardiac size. Cardiac rhythm. Right [...] a diabetic educatorand has met with a anesthesia associate. No one has started her on [...] electronic medical record, andcommunicating with other health specialist wound care and/or carecoordination. Please see note for [...] and closed. 6. The BPP was 8. Ilene Medrano APRN MANAGER CREDIT G [facility] US ORDERABLES documented in this encounter Visit Diagnoses Diagnosis related condition, antepartum documented in this encounter Care Teams Client Executive Relationship Specialty Start Date End Date Tre Ba MD [address] [address] PCP - General rayon tester 01/15/22 09/19/23 documented as of this encounter
--- OUTSIDE RECORDS SUMMARY | 2023-10-09 15:49 | XMS_ITS | Encounter Summary ---
Author Organization [place] Address [address] [place] [address]. [place] [address] Care Team Providers Care Aerial Tram Operator Name Role Phone Tre Ba MD Primary Care Provide r Reason for Referral * Diagnostic Imaging Ultrasound (Routine) - Pending Review Specialty Diagnoses / Procedures Referred By Contac t Referred To Contact Radiology. Diagnoses Diabetes mellitus, type 2 (H) Polyhydramnios affecting Procedures [facility] US Comprehensive Single F/U Cristiane Patel MD [address] [place] [address] Referral ID Status Reason Start Date Expiration Date V isits Requested Visits Authorized [id number] Pending Review 07/24/2023 07/23/2024 1 1 * Diagnostic Imaging Ultrasound (Routine) - Pending Review Specialty Diagnoses / Procedures Referred By Contac t Referred To Contact Radiology. Diagnoses Diabetes mellitus, type 2 (H) Polyhydramnios affecting Procedures [facility] Single Cristiane Patel MD [address] [place] [address] Referral ID Status Reason Start Date Expiration Date V isits Requested Visits Authorized [id number] Pending Review 07/24/2023 07/23/2024 1 1 * Diagnostic Imaging Ultrasound (Routine) - Pending Review Specialty Diagnoses / Procedures Referred By Contac t Referred To Contact Radiology. Diagnoses Diabetes mellitus, type 2 (H) Polyhydramnios affecting Procedures [facility] BPP Single Cristiane Patel MD [address] [place] [address] Referral ID Status Reason Start Date Expiration Date V isits Requested Visits Authorized [id number] Pending Review 07/24/2023 07/23/2024 1 1 Reason for Visit * Reason Comments Ultrasound L2- AMA, T2DM Encounter Details Date Type Department Care Team (Late st Contact Info) Description 07/24/2023 2:00 PM CDT Office Visit [facility] M[facility] Medicine [facility] [place] [address] [place] [address] Cristiane Patel MD [address] [place] [address] with type 2 diabetes mellitus [...] in the Maternal- Medicine Center at the [facility] today. For a detailed report of the ultrasound examination, please see the ultrasound report which can be found under the imaging tab. If you have questions regarding today's evaluation or if we can be of further service, please contact the Maternal- Medicine Center. Cristiane Patel MD Soda Jerker, SENIOR NETWORK SECURITY ARCHITECT Maternal- Medicine [phone] (Pager) documented in this encounter Nursing Notes * Katina Espinoza RN - 07/24/2023 2:00 PM CDT Patient reports positive movement, no pain, no contractions, leaking of fluid, or bleeding. Reports blood sugar values elevated- fasting this morning was 175 reports after meals often 220. Has appointment in [place] next week to discuss starting insulin. Patient denies headache, visual changes, nausea/vomiting, epigastric pain related to preeclampsia. SBAR given to TREVOR GRESHAM, see their note in Epic. documented in this encounter Plan of Treatment Not on file documented as of this encounter Results * [facility] Comprehensive Single F/U (08/21/2023 12:39 PM CDT) [...] ? Study Date: ??08/21/2023 11:58am Pat. NO: ??[id number] ?Referring ??MD: HOMAR MEDRANO Site: ? University Internship: Yamila Dutton RDMS : ??1985 ?Age: ?? [...] lb 4 ?oz EFW by ? Hadlock ([id number]) Head / Face / Neck Biometry: Cardiology Tech ?4.4 ? mm ANATOMY ----- The following [...] Heart / Thorax ?RVOT view. LVOT view. 7-vaomqf-pfkbzli view. Spine ?Cervical spine. sex: male. MATERNAL STRUCTURES ----- Cervix ?Suboptimal Right Ovary ?Not examined Left Ovary ?Not examined RECOMMENDATION ----- We discussed the findings on today's ultrasound with the patient. The patient has the following ultrasounds already scheduled: 1) BPP once weekly at your clinic. 2) BPP once weekly at [facility]. 3) echo on 08/28/23 with Pediatric Cardiology. 4) growth assessment at [facility] in 4 weeks. Given the polyhydramnios and [...] WILDER Study Date: 08/21/2023 11:58am Pat. NO: [id number] Referring MD: HOMAR MEDRANO Site: University Internship: Yamila Dutton RDMS : 1985 Age: 37 [...] EFW (lb,oz) 6 lb 4oz EFW by Hadlock([id number]-FL) Head / Face / Neck Biometry: Cardiology Tech 4.4mm ANATOMY ----- The following structures appear normal: Head / Neck Cranium. Head size. Head shape.Lateral ventricles. Midline falx. Cavum septi pellucidi. Cerebellum.Cisterna magna. Thalami. Face Profile. Heart / Thorax 4-chamber view. Diaphragm. Abdomen Stomach. Kidneys. Bladder. Spine Thoracic spine. Lumbar spine.Sacral spine. The following structures were documented previously: Face Lips. Nose. Heart / Thorax RVOT view. LVOT view. 4-nqibiz-gxirwunpwfq. Spine Cervical spine. sex: male. MATERNAL STRUCTURES ----- Cervix Suboptimal Right Ovary Not examined Left Ovary Not examined RECOMMENDATION ----- We discussed the findings on today's ultrasound with the patient. The patient has the following ultrasounds already scheduled: 1) BPP once weekly at your clinic. 2) BPP once weekly at [facility]. 3) echo on 08/28/23 with Pediatric Cardiology. 4) growth assessment at [facility] in 4 weeks. Given the polyhydramnios and [...] 5. BPP is reassuring. Cristiane Patel MD [facility] US ORDERABLE S * [facility] BPP Single (08/14/2023 3:54 PM CDT) Anatomical Region Laterality Modality Ultrasound 08/14/2023 3:35 PM CDT Impressions 08/14/2023 4:06 PM CDT IMPRESSION ----- 1) Mild polyhydramnios. 2) BPP is reassuring. Narrative 08/14/2023 4:06 PM CDT ?BPP ----- Pat. Name: JACK WILDER ? Study Date: ??08/14/2023 3:35pm Pat. NO: ??[id number] ?Referring ??MD: HOMAR MEDRANO Site: ? University Internship: Gemma Pinzon RDMS : ??1985 ?Age: ?? [...] has not contacted your office or her director workforce management. Currently we are not reviewing her blood [...] WILDER Study Date: 08/14/2023 3:35pm Pat. NO: [id number] Referring MD: HOMAR MEDRANO Site: University Internship: Gemma Pinzon [facility] : 1985 Age: 37 [...] and has notcontacted your office or her director workforce management. Currently we are not reviewing her blood [...] 2) BPP is reassuring. Cristiane Patel MD [facility] US ORDERABLE S [facility] BPP Single (07/30/2023 3:46 PM CDT) [...] ? Study Date: ??07/30/2023 3:27pm Pat. NO: ??[id number] ?Referring ??MD: HOMAR MEDRANO Site: ??[place] ? University Internship: Lashonda Barlow RDMS : ??1985 ?Age: ?? [...] with MFM and once with PCP in [place]. Recommend delivery for GDM A2 and pregestational: ? Well controlled: [id number]-[id number] ? Poorly controlled: 95d1z-92o0d ? Failed in-hospital attempt at control: 04k4a-32g4c Thank you for the opportunity to participate in the care of this patient. If you have questions regarding today's evaluation or if we can be of further service, please contact the Maternal- Medicine Center. anomalies may be present but not detected Procedure Note Bassem Pathak MD - 07/30/2023 BPP ----- Pat. Name: JACK WILDER Study Date: 07/30/2023 3:27pm Pat. NO: [id number] Referring MD: HOMAR MEDRANO Site: [facility] University Internship: Lashonda Barlow RDMS : 1985 Age: 37 [...] with twice weekly BPP, once here with [facility] and once withPCP in [place]. Recommend delivery for GDM A2 and pregestational: ? Well controlled: [id number]-96f1y ? Poorly controlled: 22b1k-48a7f ? Failed in-hospital attempt at control: 52l3y-85e4r Thank you for the opportunity to participate [...] fluid volume appears normal. Cristiane Patel MD [facility] US ORDERABLE S documented in this encounter Visit Diagnoses Diagnosis with type 2 diabetes mellitus in third trimester- Primary Polyhydramnios affecting Polyhydramnios affecting Polyhydramnios affecting Polyhydramnios affecting documented in this encounter Care Teams Aerial Tram Operator Relationship Specialty Start Date End Date Tre Ba MD [facility] TERRY PONCE [address] [address] PCP - General molder 01/15/22 09/19/23 documented as of this encounter
--- OUTSIDE RECORDS SUMMARY | 2023-10-09 15:49 | XMS_ITS | Encounter Summary ---
Author Organization [place] Address [address] [place] [address]. [place] [address] Care Team Providers Care Bridge Instructor Name Role Phone Tre Ba MD Primary Care Provide r Reason for Referral * Consultation (Routine: Next available opening) - Pending Review Specialty Diagnoses / Procedures Referred By Contac t Referred To Contact Diagnoses related condition, antepartum Ilene Kaplan APRN CNP [facility] [address] [place] [address] Referral ID Status Reason Start Date Expiration Date V isits Requested Visits Authorized [id number] Pending Review 07/03/2023 07/02/2024 1 1 Comments AMA * Diagnostic Imaging Ultrasound (Routine) - Pending Review Specialty Diagnoses / Procedures Referred By Contac t Referred To Contact Radiology. Diagnoses related condition, antepartum Procedures M[facility] US Comprehensive Single Ilene Kaplan APRN CNP [facility] [address] [place] [address] Referral ID Status Reason Start Date Expiration Date V isits Requested Visits Authorized [id number] Pending Review 07/03/2023 07/02/2024 1 1 * Consultation (Routine: Next available opening) - Pending Review Specialty Diagnoses / Procedures Referred By Temo t Referred To Contact Diagnoses related condition, antepartum Ilene Kaplan APRN CNP [facility] [address] [place] [address] [facility] Maternal [facility] [address] [place] [address] Referral ID Status Reason Start Date Expiration Date V isits Requested Visits Authorized [id number] Pending Review 07/03/2023 07/02/2024 1 1 Question Answer Preferred Location: [facility] [place] 10/10/2023 Ultrasound Complete US (14-17.6 weeks GA) US PROC NONE MFM Issue Advanced Maternal Age *MUST request Genetic Counseling MFM MD Consultation (unrelated to Ultrasound findings): No Inflammatory Bowel Disease Clinic: Joint MFM and GI Consultation: No Chronic Kidney Disease: Joint MFM and Nephrology Consultation No Genetic Counseling Consultation: Yes fax [facility], Comments There is no height or [...] st Contact Info) Description 07/03/2023 Transcribe Orders [facility] M[facility] Medicine [facility] [place] [address] [place] [address] Ilene Kaplan APRN CNP [facility] [address] [place] [address] related condition, antepartum (Primary Dx) Social History [...] condition, antepartum Expected: 07/03/2023 (Approximate), Expires: 12/30/2023 [facility] Genetic Counseling Referral Routine: Next available opening related condition, antepartum Expected: 07/03/2023 (Approximate), Expires: 07/02/2024 documented as of this encounter Results * [facility] US Comprehensive Single (07/24/2023 2:13 [...] ? Study Date: ??07/24/2023 1:32pm Pat. NO: ??[id number] ?Referring ??MD: ILENE KAPLAN Site: ??[place] ? Sorter Operator: Sujatha Joyce RDMS : ??1985 ?Age: [...] 3 lb 10 ?oz EFW by ?Hadlock ([id number]-FL) Head / Face / Neck Biometry: Clinic Licensed Practical Nurse ? 3.6 ? mm CM ?5.7 ? [...] cava. Inferior vena cava. 3-vessel ? view. 6-pijjyv-yjccjco view. Cardiac position. Cardiac size. Cardiac rhythm. [...] are between 220-240. She is following a inside technical sales representative and has met with a floor cashier. No one has started her on insulin [...] medical record, and communicating with other health cattle care worker and/or care coordination. Please see note for details. Procedure Note Cristiane Patel MD - 07/24/2023 Comprehensive ----- Pat. Name: SHEBA WILDER Study Date: 07/24/2023 1:32pm Pat. NO: [id number] Referring MD: ILENE KAPLAN Site: [facility] Sorter Operator: Sujatha Joyce RDMS : 1985 Age: [...] 3 lb 10 oz EFW by Hadlock ([id number]-FL) Head / Face / Neck Biometry: Clinic Licensed Practical Nurse 3.6 mm CM 5.7 mm Nasal bone [...] Superior venacava. Inferior vena cava. 3-vessel view. 8-eovbmx-bpwtrgx view.Cardiac position. Cardiac size. Cardiac rhythm. Right [...] a diabetic educatorand has met with a floor cashier. No one has started her on insulin [...] electronic medical record, andcommunicating with other health cattle care worker and/or carecoordination. Please see note [...] closed. 6. The BPP was 09/30. Ilene aKplan APRN MANAGER [facility] US ORDERABLES documented in this encounter Visit Diagnoses Diagnosis related condition, antepartum- Primary related condition, antepartum documented in this encounter Care Teams Bridge Instructor Relationship Specialty Start Date End Date Tre Ba MD [facility] [address]ONCE [address] [address] PCP - General lineman service or work dispatcher 01/15/22 09/19/23 documented as of this encounter
--- OUTSIDE RECORDS SUMMARY | 2023-10-09 15:49 | XMS_ITS | Encounter Summary ---
Author Organization [place] Address [facility] [place] [address] Care Team Providers Care Cutter Finisher Name Role Phone Tre Ba MD Primary Care Provide r Reason for Visit * Reason Comments Genetic Counseling * Consultation (Routine: Next available opening) - Pending Review Specialty Diagnoses / Procedures Referred By Temo taylor Referred To Contact Diagnoses related condition, antepartum Ilene Kaplan APRN [facility] [address] [place] [address] Referral ID Status Reason Start Date Expiration Date V isits Requested Visits Authorized [id number] Pending Review 07/03/2023 07/02/2024 1 1 Encounter Details Date Type Department Care Team (Late st Contact Info) Description 07/24/2023 12:45 PM CDT Office Visit [facility] Maternal Medicine [facility] [place] [address] [place] [address] Cristiane Patel MD [address] [place] [address] Laura Abdi GC [address] [place], [place] [address]E [facility], [address] [address] Multigravida of advanced maternal age in [...] Laura Abdi, - 07/24/2023 12:[address] [facility] Genetic Counseling Consult Patient: Sheba Wilder Date of : 1985 Date of Service: 07/24/23 Sheba was seen at the [facility] for genetic consultation. Theindication for genetic counseling is advanced maternal age. The patient was unaccompanied to this visit. The session was conducted in Finnish. IMPRESSION/ PLAN 1. Sheba has not had genetic screening in this but elected to have screening today. 2. During today's [facility] visit, Sheba had a blood draw for expanded non-invasive testing (also called NIPT, NIPS, or cell-free DNA) through [facility] ([employer]). The expanded NIPT screens for trisomy 21, [...] an emaildiscussing the results be sent to [email or web address]. Sheba was informed that results, including sex, will be available in [employer]. 3. Sheba had a level II comprehensive anatomy ultrasound today. Please see the ultrasound report for further details. 4. [facility] recommends weekly BPPs starting next week. [...] in these pregnancies, please refer to the [facility] note for more details. FAMILY HISTORY A three-generation family history was obtained today and is scanned under the Media tab in [employer]. The family history was reported by Sheba. [...] of recurrent loss shecan reach out to [facility] or her OB. Sheba has a [...] wants more information they can contact the [facility] Cancer Risk Management Program ( ). [...] individuals (generally male) being most severely affected. [place] screening was reviewed. About [place] Screening The [...] of other microdeletion syndromes (expanded NIPT through [facility]). At this time, it is not possible [...] pleasure to be involved with Sheba???s care. Ebib-fo-umfs time of the meeting was 30 minutes. Laura Abdi MS, [facility] Maternal Medicine Office: [phone] [facility]: [phone] [facility] documented in this encounter Plan of Treatment Not on file documented as of this encounter Results * [facility] Non-Invasive Screening???Prequel (07/24/2023 2:49 PM CDT) See Scanned Result [facility] NON-INVASIVE SCREENING PREQUEL-Scann ed 08/02/2023 7:16 PM CDT [employer] [employer] Blood STRUCTURE OF RIGHT UPPER LIMB / Unknown Venipuncture / Unknown 07/24/2023 2:49 PM CDT 07/24/2023 2:49 PM CDT Laura Abdi GC LAB - BLOOD ORDERABL ES [employer] [employer] [address] [place] [address], [facility] [phone] documented in this encounter Visit Diagnoses Diagnosis Multigravida of advanced maternal age in third trimester- Primary related condition, antepartum documented in this encounter Care Teams Cutter Finisher Relationship Specialty Start Date End Date Tre Ba MD [facility] TERRY PONCE [address] [address] PCP - General farmworker cranberry 01/15/22 09/19/23 documented as of this encounter
--- OUTSIDE RECORDS SUMMARY | 2023-10-09 15:49 | XMS_ITS | Encounter Summary ---
Author Organization [place] Address [address] [place] [address]. [place] [address] Care Team Providers Care Police Worker Name Role Phone Tre Ba MD [...] on filedocumented in this encounter Care Teams Police Worker Relationship Specialty Start Date End Date Tre Ba MD [facility] TERRY PONCE [address] [address] PCP - General audit control clerk 01/15/22 09/19/23 documented as of this encounter
--- OUTSIDE RECORDS SUMMARY | 2023-10-09 15:49 | XMS_ITS | Encounter Summary ---
Author Organization [place] Address [facility] [place] [address] Care Team Providers Care Director Global Strategic Publisher Sales Name Role Phone Tre Ba MD Primary Care Provide r Encounter Details Date Type Department Care Team (Late st Contact Info) Description 07/03/2023 Medical Correspondence [facility] Info Mgmt [facility] [address] [place] [address] Scan, Non-Provider Social History Tobacco [...] on filedocumented in this encounter Care Teams Director Global Strategic Publisher Sales Relationship Specialty Start Date End Date Tre Ba MD [address] [place] [id number] PCP - General it compliance analyst 01/15/22 09/19/23 documented as of this encounter
--- OUTSIDE RECORDS SUMMARY | 2023-10-09 15:49 | XMS_ITS | Encounter Summary ---
Author Organization [place] Address [address] [place] [address]. [place] [address] Care Team Providers Care Shrimper Name Role Phone Tre Ba MD Primary Care Provide r Reason for Visit * Reason Comments Ultrasound L2-AMA Encounter Details Date Type Department Care Team (Late st Contact Info) Description 07/08/2023 PRE VISIT [facility] Maternal Medicine Center [place] [address] [place] [address] Melissa Aguiar RN Ultrasound (L2-AMA) [...] on filedocumented in this encounter Care Teams Shrimper Relationship Specialty Start Date End Date Tre Ba MD [address] [place] [address] PCP - General gaming department head 01/15/22 09/19/23 documented as of this encounter
== END 2023-10-09 15:44 | disposition home or self-care (01) ==
PROVIDERS: Visit Provider Registered Nurse
DX: Z01.31 Encounter for examination of blood pressure with abnormal findings (principal)
CPT/HCPCS: 82565; 84450; 84460; 84520

== ENCOUNTER 2024-01-06 12:22 | Emergency (ER) | payer MEDICAID, SELFPAY ==
[2024-01-06] VITALS (12 sets, daily range): BP systolic 109–126; BP diastolic 60–88; PULSE 81–99; RESP 16; TEMP 36.4; O2SAT 97–98; BMI 32.5
--- NOTE | 2024-01-06 12:58 | ED_ITS ---
HPI - Headache General Time Seen by Provider: 12:58 Date Seen: 01/06/24 Chief Complaint: Headache/Migraine Stated Complaint: Headache three days Time Seen by Provider: 01/06/24 12:45 Source: patient and RN notes reviewed Mode of arrival: ambulatory Limitations: no limitations History of Present Illness HPI Narrative: This 38-year-old female is coming in with concern of headaches. She admits that she has been having headaches since her son was born on 09/21/2023. Patient had severe preeclampsia and was transferred to the [facility] for delivery. After , her son ended up with meningitis. He is fine now. She has had worsening headaches, this was her 6th . She has had no fevers chills. At times her vision has been blurry. She had some ringing in her right ear at 1 point, not now. She has not noticed any neurologic change with function of her arms or legs. Her headache is not as severe as it was last night. She has been doing Tylenol and ibuprofen. The ibuprofen is left over from her delivery, 600 mg which she has been using every 6 hours. No one in the house is sick, she has not been sick herself. She denies history of headache disorder prior to this. She has had no recent cough or cold symptoms. She was worried this could be preeclampsia. I reviewed with her that by definition she is out of the window of preeclampsia, that can happen for 6 weeks . She has a Nexplanon in place in her left arm, states she has been spotting ever since placement. She had a 2 week follow-up after delivery of her son but has not went back sense. She notes that she has had nocturnal awakenings with these headaches, last night could not fall asleep, took medication, went back to go to bed, it woke her up again. She states she was crying her head hurts so bad last night. Her is helping with the baby at night, she is not . She feels overall that her sleep is good. On questioning, her does state that she snores at night. Did talk to the patient about possibility of sleep apnea, can increase headache disorders. She is not been on any blood pressure medicines recently. Related Data Home Medications ?Medication ?Instructions ?Recorded ?Confirmed blood-glucose meter,continuous 07/29/23 10/30/23 ([employer] Georgie 3 Buchanan) sennosides 8.6 mg capsule (senna) 8.6 mg PO QDAY 10/09/23 10/30/23 ferrous sulfate 325 mg (65 mg mg PO 10/16/23 10/30/23 iron) tablet (FeroSul) nifedipine 30 mg tablet,extended mg PO 10/16/23 10/30/23 release Previous Rx's ?Medication ?Instructions ?Recorded Blood Glucose Meter #1 ea 07/07/23 Diabetic Test Strips #100 ea 07/07/23 lancets (Accu-Chek Softclix #100 ea 07/07/23 Lancets) prednisone 20 mg tablet 20 mg PO BID #10 tabs 01/06/24 Allergies Allergy/AdvReac Type Severity Reaction Status Date / Time No Known Allergies Allergy Verified 10/30/23 13:08 Review of Systems Status of ROS: Reports: 6 or more systems reviewed and unremarkable except as noted in History and below [facility] Medical History Diabetes ?E11.9 - Type 2 diabetes mellitus without complications (ICD-10) Anemia affecting ?O99.019 - Anemia complicating , unspecified trimester (ICD-10) 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) History of macrosomia in infant in prior , currently ?O09.299 - Supervision of with other poor reproductive or obstetric history, unspecified trimester (ICD-10) Anxiety ?F41.9 - Anxiety disorder, unspecified (ICD-10) Obesity (BMI 30-39.9) ?E66.9 - Obesity, unspecified (ICD-10) Advanced maternal age in multigravida ?O09.529 - Supervision of elderly multigravida, unspecified trimester (ICD- 10) Advanced maternal age (AMA) in Pap smear of cervix with ASCUS, cannot exclude HGSIL ?R87.611 - Atypical squamous cells cannot exclude high grade squamous intraepithelial lesion on cytologic smear of cervix (ASC-H) (ICD-10) Gestational diabetes mellitus ?O24.419 - Gestational diabetes mellitus in , unspecified control (ICD-10) Pre-diabetes ?R73.03 - Prediabetes (ICD-10) History of gestational hypertension ?Z87.59 - Personal history of other complications of , childbirth and the puerperium (ICD-10) History of molar ?Z87.59 - Personal history of other complications of , childbirth and the puerperium (ICD-10) Status post normal delivery Surgical History History of reversal of tubal ligation (10/03/21) ?Z98.890 - Other specified postprocedural states (ICD-10) H/O tubal ligation ?Z98.51 - Tubal ligation status (ICD-10) History of colposcopy with cervical biopsy ?Z98.890 - Other specified postprocedural states (ICD-10) History of D&C ?Z98.890 - Other specified postprocedural states (ICD-10) Family History Aunt Ovarian cancer Uncle Colon cancer Father Diabetes Social History Narrative: [id number] mom. Significant other. Nonsmoker, no alcohol use, no recreational drug use. No concerns for safety or abuse What is your current living situation?: I presently have a place to live Problems where you live: no known problems In the past 12 months, utilities in danger of being shut off: no In the past 12 mos, have been you worried that your food would run out before you had money to buy more?: never true In the past 12 mos, the food you bought just didn't last and you didn't have money to buy more?: never true Smoking Status: Former smoker How often does anyone, including family, friends and others, physically hurt you : unable to answer How often does anyone, including family, friends and others, insult or talk down to you: unable to answer How often does anyone, including family, friends and others, threaten you with harm: unable to answer How often does anyone, including family, friends and others, scream or curse at you: unable to answer Exam Const: Vital Signs, click to edit/add: Vital Signs - 24 hr 01/06/24 12:34 01/06/24 13:21 01/06/24 13:22 Temperature 97.5 F L Pulse Rate 92 91 Pulse Rate [Pulse Oximeter] 92 Respiratory Rate 16 16 Blood Pressure 123/81 Blood Pressure [Ri ght Upper Arm] 126/88 Pulse Oximetry 98 97 98 Oxygen Delivery Me thod Room Air 01/06/24 13:35 01/06/24 13:45 01/06/24 14:00 Temperature Pulse Rate 96 88 84 Pulse Rate [Pulse Oximeter] Respiratory Rate Blood Pressure Blood Pressure [Ri ght Upper Arm] Pulse Oximetry 98 98 98 Oxygen Delivery Me thod 01/06/24 14:01 01/06/24 14:02 01/06/24 14:15 Temperature Pulse Rate 81 88 89 Pulse Rate [Pulse Oximeter] Respiratory Rate 16 Blood Pressure 109/75 Blood Pressure [Ri ght Upper Arm] Pulse Oximetry 97 98 98 Oxygen Delivery Me thod 01/06/24 14:30 01/06/24 14:31 Temperature Pulse Rate 99 85 Pulse Rate [Pulse Oximeter] Respiratory Rate 16 Blood Pressure 123/60 Blood Pressure [Ri ght Upper Arm] Pulse Oximetry 97 97 Oxygen Delivery Me thod This 38-year-old female is alert, interactive, no apparent distress. Pupils equal round reactive, sclera clear, extraocular muscles intact. Symmetrical facial function, speech is normal. TMs canals are normal, no evidence of any fluid or infection. Neck is supple, no adenopathy or masses. Lungs are clear, good air entry, no wheezing or crackles. CV regular rate and rhythm, no murmur, normal S1-S2. Abdomen is soft, nontender, nondistended, no organomegaly. Patient is ambulatory in the ED of her own accord. No gross neurologic changes noted on examination of upper lower extremities. Skin visualized without rash. Documenting provider has reviewed patient's vital signs: yes Course Course ED Course: This patient is reassured that her blood pressure is good, with normal neurologic exam. Discussed neuro imaging, she would like to proceed with head CT, given these headaches are potentially new for her in the last 3 months and worsening, complain of nocturnal awakenings, do not feel it is inappropriate to do a head CT. Will do a head CT noncontrast. Will get baseline labs. Will give her some IV fluid, try IV Toradol while we await results. She clinically looks quite well, have no concerns about bacterial meningitis based on her clinical presentation and her vitals. Reevaluation(s) Time of Reevaluation #1: 14:48 Reevaluation #1: Patient is had some improvement of her headache. When she sits up, headache feels a bit worse but lying she feels much better. Her child had meningitis r ight after . This was almost 3 months ago. The temporal relationship does not make me concerned at all for meningitis for her, she looks quite well, she really has no clinical features that would be suggestive of bacterial meningitis. We reviewed that her blood pressures are looking excellent. She notes that she does have a follow-up in clinic tomorrow. We discussed the mildly elevated liver enzymes which would be my gas are coming from fatty liver disease, this can be followed in further worked up with her primary. We discussed trial prednisone, she could be starting with migraine headaches and would consider this a status type headache. I do think she looks quite well in can discharge to home especially with the knowledge that she has a follow-up clinic appointment tomorrow. We reviewed head CT and labs are reassuring. We did discuss that hemoglobin was 11.6 which is just minimally anemic, do not think that that is factoring into her headache. Vital Signs Vital signs: Initial Vital Signs Temperature 97.5 F L 01/06/24 12:34 Temperature Source Temporal Artery Scan 01/06/24 12:34 Pulse Rate 92 01/06/24 12:34 Pulse Rhythm Regular, Irregularly Irregular 01/06/24 12:34 Respiratory Rate 16 01/06/24 12:34 Blood Pressure 126/88 01/06/24 12:34 Blood Pressure Mean 100 01/06/24 12:34 Blood Pressure Position Sitting 01/06/24 12:34 Pulse Oximetry 98 01/06/24 12:34 Oxygen Delivery Method Room Air 01/06/24 12:34 Vital Signs Temperature 97.5 F L 01/06/24 12:34 Pulse Rate 92 01/06/24 12:34 Respiratory Rate 16 01/06/24 12:34 Blood Pressure 126/88 01/06/24 12:34 Pulse Oximetry 98 01/06/24 12:34 Oxygen Delivery Method Room Air 01/06/24 12:34 Temperature 97.5 F L 01/06/24 12:34 Pulse Rate 85 01/06/24 14:31 Respiratory Rate 16 01/06/24 14:31 Blood Pressure 123/60 01/06/24 14:31 Pulse Oximetry 97 01/06/24 14:31 Oxygen Delivery Method Room Air 01/06/24 12:34 Medications Administered Medications: Discontinued Medications Generic Name Dose Route Start Last Admin Trade Name Gurdeep PRN Reason Stop Dose Admin Sodium Chloride 500 mls @ 500 mls/hr 01/06/24 13:15 01/06/24 14:24 0.9 % Sodium Chloride 500 Ml IV 01/06/24 14:14 Infused .Q1H ONE Infusion Ketorolac Tromethamine 15 mg 01/06/24 13:15 01/06/24 13:37 Ketorolac 15 Mg/Ml Inj IVP 01/06/24 13:16 15 mg ONCE ONE Administration MDM - Headache Lab Data Attestation: I reviewed the patient's lab results. Labs: Lab Results 01/06/24 Range/Units 13:18 WBC 6.54 (4.50-11.00) K/uL RBC 4.82 (4.00-5.20) m/uL Hgb 11.6 L (12.0-16.0) gm/dL Hct 37.2 (33.0-51.0) % MCV 77 L (80-100) fL MCH 24 L (26-34) pg MCHC 31 L (32-36) gm/dL RDW Coeff of Joseline 14.9 (11.5-15.5) % Plt Count 200 (140-440) K/uL Neut % (Auto) 60.6 (42.0-72.0) % Lymph % (Auto) 31.2 (20-44) % [place] % (Auto) 5.8 (0.0-11.0) % Eos % (Auto) 2.0 (0.0-7.0) % Baso % (Auto) 0.2 (0.0-3.0) % Neut # (Auto) 3.97 (1.7-7.0) K/uL Lymph # (Auto) 2.04 (0.90-2.90) K/uL [place] # (Auto) 0.40 (0.00-0.90) K/UL Eos # (Auto) 0.13 (0.00-0.50) K/uL Baso # (Auto) 0.01 (0.00-0.30) K/uL Abs Immat Gran (auto) 0.01 (0.00-0.30) K/uL Imm/Tot Granulo (auto) 0.2 % Sodium 136 (135-149) mmol/L Potassium 4.0 (3.6-5.1) mmol/L Chloride 103 (96-114) mmol/L Carbon Dioxide 23 (20-32) mmol/L Anion Gap 10 (7-15) mEq/L BUN 10 (5-24) mg/dL Creatinine 0.5 (0.5-1.5) mg/dL Estimated Creat Clear 117.38 Estimated GFR 125 ml/min Glucose 141 H (60-115) mg/dL Calcium 9.2 (8.4-10.6) mg/dL Total Bilirubin 0.3 (0.1-1.5) mg/dL AST 36 H (12-35) U/L ALT 75 H (4-35) U/L Alkaline Phosphatase 55 (40-150) U/L C-Reactive Protein 0.5 (0.5-1.0) mg/dL Total Protein 8.1 (6.0-8.3) g/dL Albumin 4.8 (3.3-5.0) g/dL Imaging Data CT scan - head: Attestation: I have reviewed the pertinent imaging results. Radiologist's impression: Patient: JACK EDWARDS Facility:?[facility] Patient ID:?[id number] Site Patient ID:?[id number]. Site :?[id number] Study:?CT-Head WITHOUT-01/06/2024 1:39:37 PM Ordering Physician:?Syeda Mao Final Report: INDICATION: Headache, recent baby delivery, baby had meningitis. TECHNIQUE: CT head without contrast. COMPARISON: None. FINDINGS: CSF spaces: Within normal limits for age. Brain parenchyma and extra-axial spaces: The hernandez-white differentiation is unremarkable. No sign of mass, hemorrhage, or midline shift. No extra-axial fluid collection. Skull base and calvarium: The visualized paranasal sinuses and mastoid air cells demonstrate no acute or significant findings. The visualized orbits are grossly unremarkable. No skull fractures. IMPRESSION: No acute or suspicious intracranial findings. Of note, noncontrast CT head is low sensitivity for a diagnosis of meningitis. If there is ongoing suspicion for this diagnosis, MRI should be considered. Please note that all CT scans at this facility use dose modulation, iterative reconstruction, and/or weight-based dosing when appropriate to reduce radiation dose to as low as reasonably achievable. Dictated by Patrice Espinoza MD @ 01/06/2024 1:50:15 PM (Electronic Signature) Discharge Plan Discharge Clinical Impression: Headache Instructions: Acute Headache (ED) Additional Instructions: Can continue with Tylenol and ibuprofen at home per bottle directions. We can try prednisone for prolonged headache. Keep your appointment with your primary care provider tomorrow. You need to be followed for mildly elevated liver functions which could be coming from fatty liver. Weight loss, low-fat diet and exercise can help if it is fatty liver. Your blood pressure was normal here, no evidence of any hypertension. Discussed with your primary care provider that you are snoring, sleep study could be considered. Again, lifestyle modification with exercise, weight loss can help some people with resolution of snoring or sleep apnea. Activity Level: Activity as Tolerated Prescriptions: New prednisone 20 mg tablet 20 mg PO BID Qty: 10 0RF No Action senna 8.6 mg capsule 8.6 mg PO QDAY (DME) FreeStyle Georgie 3 Buchanan Misc See Rx Instructions .Route Rx Instructions: As directed ferrous sulfate [FeroSul] 325 mg (65 mg iron) tablet PO nifedipine 30 mg tablet extended release PO (DME) Blood Glucose Meter Misc See Rx Instructions .Route Qty: 1 0RF Rx Instructions: As directed (DME) lancets [Accu-Chek Softclix Lancets] Misc See Rx Instructions .Route Qty: 100 3RF Rx Instructions: As directed four times daily (DME) Diabetic Test Strips Misc See Rx Instructions .Route Qty: 100 3RF Rx Instructions: As directed four times daily Follow Up/Referrals: Provider,Not a Local [Primary Care Provider] - Stand Alone Forms: PFSweb Info Instructions
--- NOTE | 2024-01-06 13:07 | CRLHL7_ITS ---
For Patients: As a result of the Century Cures Act, medical imaging exams and procedure reports are released immediately into your electronic medical record. You may view this report before your referring provider. If you have questions, please contact your health care provider. INDICATION: Headache, recent baby delivery, baby had meningitis. TECHNIQUE: CT head without contrast. COMPARISON: None. FINDINGS: CSF spaces: Within normal limits for age. Brain parenchyma and extra-axial spaces: The hernandez-white differentiation is unremarkable. No sign of mass, hemorrhage, or midline shift. No extra-axial fluid collection. Skull base and calvarium: The visualized paranasal sinuses and mastoid air cells demonstrate no acute or significant findings. The visualized orbits are grossly unremarkable. No skull fractures. IMPRESSION: No acute or suspicious intracranial findings. Of note, noncontrast CT head is low sensitivity for a diagnosis of meningitis. If there is ongoing suspicion for this diagnosis, MRI should be considered. Please note that all CT scans at this facility use dose modulation, iterative reconstruction, and/or weight-based dosing when appropriate to reduce radiation dose to as low as reasonably achievable. Dictated by Patrice Espinoza MD @ 01/06/2024 1:50:15 PM (Electronically Signed)
[2024-01-06 13:27] LABS: Basophils Absolute Auto 0.01 K/uL (0.00-0.30); Basophils Percent Auto 0.2 % (0.0-3.0); Eosinophils Absolute Auto 0.13 K/uL (0.00-0.50); Hematocrit 37.2 % (33.0-51.0); Hemoglobin* 11.6 gm/dL (12.0-16.0); Immature Granulocytes Abs Auto 0.01 K/uL (0.00-0.30); Immature Granulocytes Pct Auto 0.2 %; Lymphocytes Absolute Auto 2.04 K/uL (0.90-2.90); Lymphocytes Percent Auto 31.2 % (20-44); Mean Corpuscular HGB Conc 31 gm/dL (32-36); Mean Corpuscular Hemoglobin 24 pg (26-34); Mean Corpuscular Volume 77 fL (80-100); Monocytes Percent Auto 5.8 % (0.0-11.0); Neutrophils Absolute Auto 3.97 K/uL (1.7-7.0); Neutrophils Percent Auto 60.6 % (42.0-72.0); Platelet Count* 200 K/uL (140-440); RDW Coefficient of Variation % 14.9 % (11.5-15.5); Red Blood Count 4.82 m/uL (4.00-5.20); White Blood Count* 6.54 K/uL (4.50-11.00)
[2024-01-06] MEDS: KETOROLAC 15 MG/ML inj IVP (13:37)
[2024-01-06] MEDS: 0.9 % SODIUM CHLORIDE 500 ML 500 ML IV (13:38)
[2024-01-06 13:43] LABS: Slide Review Reflex No
[2024-01-06 13:44] LABS: Chloride* 103 mmol/L (96-114)
--- OUTSIDE RECORDS SUMMARY | 2024-01-06 13:44 | XMS_ITS | Referral Summary ---
Author Organization [place] Address [address] [place] [address] Care Team Providers Care Computer Systems Designer Name Role Phone Bassem Pathak MD Unavailable [phone] No Ref-Primary, Physician Primary Care Provider Allergies No known active allergies Medications ibuprofen (ADVIL/MOTRIN) 800 MG tabletIndicatio ns:Missed Take 1 tablet (800 mg) by mouth every 6 hours as needed for other (mild and/or inflammatory pain) 30 tablet 2 Active acetaminophen (TYLENOL) 325 MG tabletIndicatio ns:Missed Take 3 tablets (975 mg) by mouth every 6 hours as needed for mild pain 50 tablet 2 Active metFORMIN (GLUCOPHAGE XR) 500 MG 24 hr tabletIndicatio ns: (spontaneous vaginal delivery) Take 1 tablet (500 mg) by mouth daily (with dinner) 60 tablet 2 4 Active acetaminophen (TYLENOL) 325 MG tabletIndicatio ns: (spontaneous vaginal delivery) Take 2 tablets (650 mg) by mouth every 6 hours as needed for mild pain Start after Delivery. 100 tablet 4 Active ibuprofen (ADVIL/MOTRIN) 600 MG tabletIndicatio ns: (spontaneous vaginal delivery) Take 1 tablet (600 mg) by mouth every 6 hours as needed for moderate pain Start after delivery 60 tablet 4 Active senna-docusate (SENOKOT-S/ROBERT COLACE) 8.6-50 MG tabletIndicatio ns: (spontaneous vaginal delivery) Take 1 tablet by mouth daily Start after delivery. 100 tablet 4 Active NIFEdipine ER (ADALAT CC) 30 MG 24 hr tabletIndicatio ns: (spontaneous vaginal delivery),Sever e pre-eclampsia, antepartum Take 2 tablets (60 mg) by mouth daily 60 tablet 1 4 Active ferrous sulfate (FEROSUL) 325 (65 Fe) MG tabletIndicatio ns: (spontaneous vaginal delivery) Take 1 tablet (325 mg) by mouth daily (with breakfast) 60 tablet 1 4 Active Active Problems Problem Noted Date Diagnosed Date Preeclampsia, severe 09/19/2023 Social History Tobacco Use Types Packs/Day Years Used Date Smoking Tobacco: Never Smokeless Tobacco: Never Tobacco Cessation:Counseling Given: Not Answered Alcohol Use Standard Drinks/Week Comments Not Currently 0 (1 standard drink = 0.6 oz pur e alcohol) [place] Depression Scale Answer Date Recorded Last EPDS Total Score Not on file 09/23/2023 The thought of harming myself has occurred to me . Never 09/23/2023 Adolescent Education Answer Date Record ed Getting School Help Needed Not on file 11/15 Comments No Sex and Gender Information Value Date Recorded Sex Assigned at Not on file Legal Sex Female 11:28 AM CDT Gender Identity Not on file Sexual Orientation [...] 154.9 cm (5' 1) 01/20/2022 4:42 PM MARKET RESEARCH ANALYST Body Mass Index 35.3 01/20/2022 4:42 PM MARKET RESEARCH ANALYST Plan of Treatment Not on file Procedures Procedure Name Priority Date/Time Associated Diagnosis Comments GLUCOSE BY METER Routine 09/23/2023 3:21 AM CDT from Last 3 Months or Most Recently Relevant to Health Maintenance Results * Glucose by meter (09/23/2023 3:21 AM CDT) GLUCOSE BY METER POCT 92 70 - 99 mg/dL 09/23/2023 3:27 AM CDT UR LABORATORY POC Blood, Capillary BLOOD SPECIMEN / Unknown 09/23/2023 3:21 AM CDT 09/23/2023 3:27 AM CDT us Najma Bell MD LAB - BEAKER POCT Final Result UR LABORATORY POC [facility] Acute Care Lab [address] [place] [address] from Last 3 Months or Most Recently Relevant to Health Maintenance Insurance [facility] Advance Directives For more information, please contact: [phone] * Full Code (Latest Code Status on File) Date Activated Date Inactivated Comments 09/20/2023 8:47 AM 09/23/2023 10:12 PM All basic a nd advanced life-sustaining interventions are performed as appropriate Question Answer Comments Code status determined by: Unable to dis cuss and no AD/POLST on file; continue PREVIOUSLY ORDERED code status Care Teams Computer Systems Designer Relationship Specialty Start Date End Date No Ref-Primary, Physician PCP - General 09/20/23 Bassem Pathak MD [address] [place] [address] Assigned OBGYN Provider 08/16/23
--- OUTSIDE RECORDS SUMMARY | 2024-01-06 13:44 | XMS_ITS | Clinical Summary ---
Author Organization [place] Address [address] [place] [address] Care Team Providers Care Bale Tie Machine Operator Name Role Phone Bassem Pathak MD Unavailable [phone] No Ref-Primary, Physician Primary Care Provider Allergies [...] drink = 0.6 oz pur e alcohol) [place] Depression Scale Answer Date Recorded Last EPDS [...] 154.9 cm (5' 1) 01/20/2022 4:42 PM SENIOR ENGINEERING TECH Body Mass Index 35.3 01/20/2022 4:42 PM SENIOR ENGINEERING TECH Plan of Treatment Health Maintenance Due Date [...] - Td or Tdap) 07/28/2033 07/29/2023, 12/08/2012 RSV VACCINE (1 - 1-dose 75+ series) 10/21/2062 HPV IMMUNIZATION Aged Out No longer e [...] CDT 09/23/2023 3:27 AM CDT us Najma JOHNSON - BEAKER POCT Final Result UR LABORATORY POC [facility] Care Lab [address] [facility] [place] [address], [facility] from Last 3 Months or Most Recently Relevant to Health Maintenance Insurance [facility] Advance Directives For more information, please contact: [phone] * Full Code (Latest Code Status on File) Date Activated Date Inactivated Comments 09/20/2023 8:47 AM 09/23/2023 10:12 PM All basic a nd advanced life-sustaining interventions are performed as appropriate Question Answer Comments Code status determined by: Unable to dis cuss and no AD/POLST on file; continue PREVIOUSLY ORDERED code status Care Teams Bale Tie Machine Operator Relationship Specialty Start Date End Date No Ref-Primary, Physician PCP - General 09/20/23 Bassem Pathak MD [address] [address] Assigned OBGYN Provider 08/16/23
--- OUTSIDE RECORDS SUMMARY | 2024-01-06 13:44 | XMS_ITS | Encounter Summary ---
Author Organization [place] Address [address] [facility] [place] [address] Care Team Providers Care Cheese Factory Worker Name Role Phone Bassem Pathak MD Unavailable [phone] No Ref-Primary, Physician Primary Care Provider Encounter Details Date Type Department Care Team (Late st Contact Info) Description 09/28/2023 [facility] [place] [address] [place] [address] Sumi Peraza RN Social History Tobacco Use Types Packs/Day Years Used Date Smoking Tobacco: Never Smokeless Tobacco: Never Alcohol Use Standard Drinks/Week Comments Not Currently 0 (1 standard drink = 0.6 oz pur e alcohol) [place] Depression Scale Answer Date Recorded Last EPDS [...] on filedocumented in this encounter Care Teams Cheese Factory Worker Relationship Specialty Start Date End Date No Ref-Primary, Physician PCP - General 09/20/23 Bassem Pathak MD [address] [place] [address] Assigned OBGYN Provider 08/16/23 documented as of this encounter
--- OUTSIDE RECORDS SUMMARY | 2024-01-06 13:44 | XMS_ITS | Encounter Summary ---
Author Organization [place] Address [address] [place] [address] Care Team Providers Care Chemical Radiation Technician Name Role Phone Bassem Pathak MD Unavailable [phone] No Ref-Primary, Physician Primary Care Provider Encounter Details Date Type Department Care Team (Latest Contact Info) Description 09/24/2023 Medical Correspondence [facility] Info Mgmt Srs [address] [place] [address] Scan, Non-Provider [facility] Social History Tobacco Use Types Packs/Day Years Used Date Smoking Tobacco: Never Smokeless Tobacco: Never Alcohol Use Standard Drinks/Week Comments Not Currently 0 (1 standard drink = 0.6 oz pur e alcohol) [place] Depression Scale Answer Date Recorded Last EPDS [...] on filedocumented in this encounter Care Teams Chemical Radiation Technician Relationship Specialty Start Date End Date No Ref-Primary, Physician PCP - General 09/20/23 Bassem Pathak MD [address] [place] [address] Assigned OBGYN Provider 08/16/23 documented as of this encounter
--- OUTSIDE RECORDS SUMMARY | 2024-01-06 13:44 | XMS_ITS | Encounter Summary ---
Author Organization [place] Address [address] [facility] [place] [address] Care Team Providers Care Melter Caster Name Role Phone Bassem Pathak MD Unavailable No Ref-Primary, Physician Primary Care Provider Reason for Visit * Reason Onset Date Comments Hypertension 09/28/2023 Encounter Details Date Type Department Care Team (Late st Contact Info) Description 09/28/2023 Telephone [facility] [address] [place], [place] [address] Sumi Rae RN Hypertension Social History Tobacco Use Types Packs/Day Years Used Date Smoking Tobacco: Never Smokeless Tobacco: Never Alcohol Use Standard Drinks/Week Comments Not Currently 0 (1 standard drink = 0.6 oz pur e alcohol) [place] Depression Scale Answer Date Recorded Last EPDS [...] Spoke with patient regarding participation in the [facility] Program. Pt states she does want to participate. Advised patient to go into My Chart and complete tasks and enter blood pressure. Pt states her BP yesterday was 133/103. Pt denies any symptoms of HTN. Pt states she is taking Nifedipine and checking BP daily. Advised patient to call [facility] RN at [phone] with any questions. Pt verbalized understanding. Pt states she is also seeing her ob provider in [place] the end of this week for BP check. SUMI RAE RN documented in this encounter Plan of Treatment Not on file documented as of this encounter Visit Diagnoses Not on filedocumented in this encounter Care Teams Melter Caster Relationship Specialty Start Date End Date No Ref-Primary, Physician PCP - General 09/20/23 Bassem Pathak MD [address] [address] [address] Assigned OBGYN Provider 08/16/23 documented as of this encounter
[2024-01-06 13:45] LABS: Albumin* 4.8 g/dL (3.3-5.0); Sodium* 136 mmol/L (135-149)
[2024-01-06 13:47] LABS: Creatinine* 0.5 mg/dL (0.5-1.5); Est. Creatinine Clearance* 117.38; Estimated Glomerular Filt Rate 125 ml/min
[2024-01-06 13:48] LABS: Alanine Aminotransferase* 75 U/L (4-35); Alkaline Phosphatase* 55 U/L (40-150); Anion Gap 10 mEq/L (7-15); Aspartate Amino Transferase* 36 U/L (12-35); Bilirubin Total* 0.3 mg/dL (0.1-1.5); Blood Urea Nitrogen* 10 mg/dL (5-24); Calcium* 9.2 mg/dL (8.4-10.6); Carbon Dioxide* 23 mmol/L (20-32); Glucose* 141 mg/dL (60-115); Total Protein* 8.1 g/dL (6.0-8.3)
[2024-01-06 13:51] LABS: C Reactive Protein* 0.5 mg/dL (0.5-1.0)
== END 2024-01-06 15:03 | disposition home or self-care (01) ==
PROVIDERS: Emergency Provider Family Medicine
DX: R51.9 Headache, unspecified (principal)
CPT/HCPCS: 36415; 70450; 80053; 85025; 86140; 96374; 99284; J1885; J7030

== ENCOUNTER 2024-01-07 15:01 | Outpatient (CLI) | payer MEDICAID, SELFPAY ==
--- OUTSIDE RECORDS SUMMARY | 2024-01-07 15:25 | XMS_ITS | Referral Summary ---
Author Organization [place] Address [address] [place] [address] Care Team Providers Care Filter Press Supervisor Name Role Phone Bassem Pathak MD Unavailable [phone] No Ref-Primary, Physician Primary Care Provider Allergies [...] drink = 0.6 oz pur e alcohol) [place] Depression Scale Answer Date Recorded Last EPDS [...] 154.9 cm (5' 1) 01/20/2022 4:42 PM [facility] CUTTER PLASMA ARC Body Mass Index 35.3 01/20/2022 4:42 PM [facility] CUTTER PLASMA ARC Plan of Treatment Not on file Procedures [...] BEAKER POCT Final Result UR LABORATORY POC [facility] Acute Care Lab [address] [facility] [place] [address] from Last 3 Months or Most Recently Relevant to Health Maintenance Insurance [facility] Advance Directives For more information, please contact: [phone] * Full Code (Latest Code Status on File) Date Activated Date Inactivated Comments 09/20/2023 8:47 AM 09/23/2023 10:12 PM All basic a nd advanced life-sustaining interventions are performed as appropriate Question Answer Comments Code status determined by: Unable to dis cuss and no AD/POLST on file; continue PREVIOUSLY ORDERED code status Care Teams Filter Press Supervisor Relationship Specialty Start Date End Date No Ref-Primary, Physician PCP - General 09/20/23 Bassem Pathak MD [address] [place] [address] Assigned OBGYN Provider 08/16/23
--- OUTSIDE RECORDS SUMMARY | 2024-01-07 15:25 | XMS_ITS | Clinical Summary ---
Author Organization [facility] Address [address] [place] [address] Care Team Providers Care Manufactured Buildings Repairer Name Role Phone Bassem Pathak MD Unavailable [phone] No Ref-Primary, Physician Primary Care Provider Allergies [...] drink = 0.6 oz pur e alcohol) [place] Depression Scale Answer Date Recorded Last EPDS [...] 154.9 cm (5' 1) 01/20/2022 4:42 PM EMPLOYEE RELATIONS SPECIALIST Body Mass Index 35.3 01/20/2022 4:42 PM EMPLOYEE RELATIONS SPECIALIST Plan of Treatment Health Maintenance Due Date [...] BEAKER POCT Final Result UR LABORATORY POC [facility] Care Lab [address] [facility] [place] [address], [facility] from Last 3 Months or Most Recently Relevant to Health Maintenance Insurance [facility] Advance Directives For more information, please contact: [phone] * Full Code (Latest Code Status on File) Date Activated Date Inactivated Comments 09/20/2023 8:47 AM 09/23/2023 10:12 PM All basic a nd advanced life-sustaining interventions are performed as appropriate Question Answer Comments Code status determined by: Unable to dis cuss and no AD/POLST on file; continue PREVIOUSLY ORDERED code status Care Teams Manufactured Buildings Repairer Relationship Specialty Start Date End Date No Ref-Primary, Physician PCP - General 09/20/23 Bassem Pathak MD [address] [address] Assigned OBGYN Provider 08/16/23
--- OUTSIDE RECORDS SUMMARY | 2024-01-07 15:25 | XMS_ITS | Encounter Summary ---
Author Organization [place] Address [address] [facility] [place] [address] Care Team Providers Care Supply Assistant Name Role Phone Bassem Pathak MD Unavailable [phone] No Ref-Primary, Physician Primary Care Provider Encounter Details Date Type Department Care Team (Latest Contact Info) Description 09/24/2023 Medical Correspondence [facility] Info Mgmt Srs [address] [place] [address] Scan, Non-Provider [facility] Social History Tobacco Use Types Packs/Day Years Used Date Smoking Tobacco: Never Smokeless Tobacco: Never Alcohol Use Standard Drinks/Week Comments Not Currently 0 (1 standard drink = 0.6 oz pur e alcohol) [place] Depression Scale Answer Date Recorded Last EPDS [...] on filedocumented in this encounter Care Teams Supply Assistant Relationship Specialty Start Date End Date No Ref-Primary, Physician PCP - General 09/20/23 Bassem Pathak MD [address] [place] [address] Assigned OBGYN Provider 08/16/23 documented as of this encounter
--- OUTSIDE RECORDS SUMMARY | 2024-01-07 15:25 | XMS_ITS | Encounter Summary ---
Author Organization [place] Address [address] [facility] [place] [address] Care Team Providers Care Clothing Designer Name Role Phone Bassem Pathak MD Unavailable [phone] No Ref-Primary, Physician Primary Care Provider Encounter Details Date Type Department Care Team (Late st Contact Info) Description 09/28/2023 [facility] Medical Advice [facility] [place] [address] [place] [address] Sumi Peraza RN Social History Tobacco Use Types Packs/Day Years Used Date Smoking Tobacco: Never Smokeless Tobacco: Never Alcohol Use Standard Drinks/Week Comments Not Currently 0 (1 standard drink = 0.6 oz pur e alcohol) [place] Depression Scale Answer Date Recorded Last EPDS [...] on filedocumented in this encounter Care Teams Clothing Designer Relationship Specialty Start Date End Date No Ref-Primary, Physician PCP - General 09/20/23 Bassem Pathak MD [address] [place] [address] Assigned OBGYN Provider 08/16/23 documented as of this encounter
[2024-01-10 03:02] LABS: HPV Source Cervix; HPV, High Risk by TMA Not Detected
== END 2024-01-07 15:02 | disposition home or self-care (01) ==
PROVIDERS: Visit Provider Physician Assistant
DX: Z01.419 Encounter for gynecological examination (general) (routine) without abnormal findings (principal); Z12.4 Encounter for screening for malignant neoplasm of cervix; Z30.9 Encounter for contraceptive management, unspecified
CPT/HCPCS: 87624; 87625; 88141; 88142

== ENCOUNTER 2024-03-14 17:49 | Emergency (ER) | payer MEDICAID, SELFPAY ==
[2024-03-14 17:57] VITALS: BP 125/85; PULSE 109; RESP 18; TEMP 36.7; O2SAT 98; BMI 31.6
--- NOTE | 2024-03-14 18:13 | CRLHL7_ITS ---
For Patients: As a result of the Century Cures Act, medical imaging exams and procedure reports are released immediately into your electronic medical record. You may view this report before your referring provider. If you have questions, please contact your health care provider. INDICATION: Increased vaginal bleeding, 5 months . TECHNIQUE: Ultrasound pelvis transvaginal for better assessment or to better visualize the endometrium. Real-time sonographic images with spectral and color Doppler imaging of the ovaries were obtained. COMPARISON: None. FINDINGS: Uterus: 8.7 x 4.4 x 5.3 cm. Normal echotexture of the myometrium. No masses. Endometrium: Endometrial thickness measures 8 mm. No sign of endometrial mass or fluid. No hyperemic focus identified. Right ovary measures 3.8 x 1.8 x 2.3 cm. Left ovary measures 3.0 x 1.8 x 1.7 cm. No ovarian or adnexal masses. Normal arterial and venous blood flow is demonstrated in both ovaries. Cul-de-sac: No significant free fluid. IMPRESSION: Unremarkable pelvic ultrasound. No acute findings or evidence for retained products of conception. Dictated by Zana Luis MD @ 03/14/2024 6:56:32 PM (Electronically Signed)
[2024-03-14 18:53] LABS: Basophils Absolute Auto 0.02 K/uL (0.00-0.30); Basophils Percent Auto 0.2 % (0.0-3.0); Eosinophils Absolute Auto 0.03 K/uL (0.00-0.50); Eosinophils Percent Auto 0.4 % (0.0-7.0); Hematocrit 34.7 % (33.0-51.0); Hemoglobin* 10.9 gm/dL (12.0-16.0); Immature Granulocytes Abs Auto 0.02 K/uL (0.00-0.30); Immature Granulocytes Pct Auto 0.2 %; Lymphocytes Absolute Auto 2.15 K/uL (0.90-2.90); Lymphocytes Percent Auto 26.6 % (20-44); Mean Corpuscular HGB Conc 31 gm/dL (32-36); Mean Corpuscular Hemoglobin 25 pg (26-34); Mean Corpuscular Volume 79 fL (80-100); Monocytes Percent Auto 4.8 % (0.0-11.0); Neutrophils Absolute Auto 5.46 K/uL (1.7-7.0); Neutrophils Percent Auto 67.8 % (42.0-72.0); Platelet Count* 190 K/uL (140-440); RDW Coefficient of Variation % 14.2 % (11.5-15.5); Red Blood Count 4.42 m/uL (4.00-5.20); White Blood Count* 8.07 K/uL (4.50-11.00)
[2024-03-14 19:12] LABS: Slide Review Reflex No
--- NOTE | 2024-03-14 19:12 | ED_ITS ---
HPI - Female Genitourinary General Date Seen: 03/14/24 Chief complaint: Vaginal Bleeding Stated complaint: Bleeding issue's (refused to disclose where) Time Seen by Provider: 03/14/24 18:00 Source: patient Mode of arrival: ambulatory Limitations: no limitations History of Present Illness HPI Narrative: Patient is a 38-year-old female [id number] with the 4 miscarriages who is 5 months presenting for vaginal bleeding. She states since she gave she has been having continuous vaginal bleeding. It will intermittently slow down but will always seem to come back. States is not feel or see is scheduled like her previous periods. Over the past 4 days she states she has been having a large amount of bleeding and passing a large amount of blood clots. She states they relatively large blood clots. This is new. Denies chest pain, shortness of breath, lightheadedness. States she feels very mildly dizzy. Has not felt like she was going to pass out. Does have some pelvic cramping. She states with the she had preeclampsia and did a vaginal delivery that had complications with shoulder dystocia. She states her previous live births were without issue. She has never bled like this before. Denies fevers, chills, diarrhea, constipation, headache, vision changes. No other concerns noted. She does see Ob Gyne in [place] Related Data Previous Rx's ?Medication ?Instructions ?Recorded medroxyprogesterone 10 mg tablet See Rx Instructions .Route 03/14/24 (Provera) .COMPLEX #60 tabs Allergies Allergy/AdvReac Type Severity Reaction Status Date / Time No Known Allergies Allergy Verified 01/08/24 13:35 Review of Systems Status of ROS: Reports: 10 or more systems reviewed and unremarkable except as noted in History and below [facility] Medical History Headache ?R51.9 - Headache, unspecified (ICD-10) Preeclampsia, severe ?O14.10 - Severe pre-eclampsia, unspecified trimester (ICD-10) 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) Anxiety ?F41.9 - Anxiety disorder, unspecified (ICD-10) Obesity (BMI 30-39.9) ?E66.9 - Obesity, unspecified (ICD-10) Pap smear of cervix with ASCUS, cannot exclude HGSIL ?R87.611 - Atypical squamous cells cannot exclude high grade squamous intraepithelial lesion on cytologic smear of cervix (ASC-H) (ICD-10) Gestational diabetes mellitus ?O24.419 - Gestational diabetes mellitus in , unspecified control (ICD-10) History of gestational hypertension ?Z87.59 - Personal history of other complications of , childbirth and the puerperium (ICD-10) History of molar ?Z87.59 - Personal history of other complications of , childbirth an d the puerperium (ICD-10) Status post normal delivery Surgical History History of reversal of tubal ligation (10/03/21) ?Z98.890 - Other specified postprocedural states (ICD-10) H/O tubal ligation (2014) ?Z98.51 - Tubal ligation status (ICD-10) History of colposcopy with cervical biopsy (2020) ?Z98.890 - Other specified postprocedural states (ICD-10) History of D&C ?Z98.890 - Other specified postprocedural states (ICD-10) Family History Aunt Ovarian cancer Colon cancer, Onset Age: 36 Uncle Colon cancer, Onset Age: 42 Father Diabetes Paternal Grandfather Colon cancer, Onset Age: 55 Family/Other Colon cancer, Onset Age: 30 Aunt Breast cancer, Onset Age: 40 Social History Narrative: Significant other, [id number] mom, 6 children Does not drink alcohol Never smoker No drug use Does not exercise but will start What is your current living situation?: I presently have a place to live Problems where you live: no known problems In the past 12 months, utilities in danger of being shut off: no In past 12 months, lack of transportation kept you from medical appts, meetings, work, or getting things needed for daily living: no In the past 12 mos, have been you worried that your food would run out before you had money to buy more?: never true In the past 12 mos, the food you bought just didn't last and you didn't have money to buy more?: never true Smoking Status: Former smoker Do you use any of these nicotine containing products: None Second hand tobacco smoke exposure: No Non-prescribed substance use: denies use How often does anyone, including family, friends and others, physically hurt you : never How often does anyone, including family, friends and others, insult or talk down to you: never How often does anyone, including family, friends and others, threaten you with harm: never How often does anyone, including family, friends and others, scream or curse at you: never service: No Exam Narrative: Exam Narrative: Const: Well-nourished, Well-developed, in mild distress Eyes: PERRL, no conjunctival injection, and symmetrical lids HENT: Atraumatic external nose and ears. Moist mucous membranes. Neck: Symmetric, trachea midline, No thyromegaly. CVS: RRR, No murmurs or gallops. Peripheral pulses 2+ and equal in all extremities RESP: Unlabored respiratory effort. Clear to auscultation bilaterally. GI: Nontender/Nondistended, No rebound or guarding. MSK:Extremities w/o deformity, Normal Active ROM Skin: Warm, Dry. No rashes or lesions. Neuro: Normal Muscle tone, No focal neurological deficits. Psych: Awake, Alert, & Oriented x3. Appropriate mood and affect. Const: Vital Signs, click to edit/add: Vital Signs - 24 hr 03/14/24 17:57 03/14/24 20:51 Temperature 98.1 F Pulse Rate [Pulse Oximeter] 109 H 92 Respiratory Rate 18 20 Blood Pressure [Ri ght Upper Arm] 125/85 123/86 Pulse Oximetry 98 97 Oxygen Delivery Me thod Room Air Course Vital Signs Vital signs: Initial Vital Signs Temperature 98.1 F 03/14/24 17:57 Temperature Source Temporal Artery Scan 03/14/24 17:57 Pulse Rate 109 H 03/14/24 17:57 Respiratory Rate 18 03/14/24 17:57 Blood Pressure 125/85 03/14/24 17:57 Blood Pressure Mean 98 03/14/24 17:57 Blood Pressure Position Sitting 03/14/24 17:57 Pulse Oximetry 98 03/14/24 17:57 Vital Signs Temperature 98.1 F 03/14/24 17:57 Pulse Rate 109 H 03/14/24 17:57 Respiratory Rate 18 03/14/24 17:57 Blood Pressure 125/85 03/14/24 17:57 Pulse Oximetry 98 03/14/24 17:57 Temperature 98.1 F 03/14/24 17:57 Pulse Rate 92 03/14/24 20:51 Respiratory Rate 20 03/14/24 20:51 Blood Pressure 123/86 03/14/24 20:51 Pulse Oximetry 97 03/14/24 20:51 Oxygen Delivery Method Room Air 03/14/24 20:51 Medications Administered Medications: Generic Name Dose Route Start Last Admin Trade Name Freq PRN Reason Stop Dose Admin Medroxyprogesterone Acetate 10 mg 03/15/24 09:00 03/14/24 20:30 Medroxyprogesterone 5 Mg Tablet PO 10 mg DAILY JENNIFER Administration MDM - Female Genitourinary MDM Narrative Medical decision making narrative: Patient is a 38-year-old female presenting for vaginal bleeding. She is having no other vaginal discharge or pain. Some mild pelvic pain. While it is several months out there is some concern for retained products of conception and an ultrasound will be done. Also check a CBC, BMP for signs of anemia or other electrolyte abnormalities. Will also do a type and screen. Patient's hemoglobin is roughly at baseline. BMP shows no concerning findings. Ultrasound shows no concerning abnormalities. I spoke to the on-call OB provider, Dr. More, she states to check a test and if anything looks good to discharge her home with Provera and to make sure she gets close outpatient follow-up. As patient is otherwise asymptomatic but overall appearing well. I did inform me to give her strict return precautions for worsening bleeding. Patient currently gets Depot shot with her nexpalon Removed in December. Initial qualitative test was positive so followed up with a quantitative. That came back at less than 2.39 and at this time I am comfortable saying she is not currently . Did not see any signs of ectopic on the ultrasound. This time she will be discharged. Started her on Provera as recommended. Lab Data Labs: Lab Results 03/14/24 03/14/24 03/14/24 Range/Units 18:23 20:08 20:24 WBC 8.07 (4.50-11.00) K/uL RBC 4.42 (4.00-5.20) m/uL Hgb 10.9 L (12.0-16.0) gm/dL Hct 34.7 (33.0-51.0) % MCV 79 L (80-100) fL MCH 25 L (26-34) pg MCHC 31 L (32-36) gm/dL RDW Coeff of Joseline 14.2 (11.5-15.5) % Plt Count 190 (140-440) K/uL Neut % (Auto) 67.8 (42.0-72.0) % Lymph % (Auto) 26.6 (20-44) % [place] % (Auto) 4.8 (0.0-11.0) % Eos % (Auto) 0.4 (0.0-7.0) % Baso % (Auto) 0.2 (0.0-3.0) % Neut # (Auto) 5.46 (1.7-7.0) K/uL Lymph # (Auto) 2.15 (0.90-2.90) K/uL [place] # (Auto) 0.40 (0.00-0.90) K/UL Eos # (Auto) 0.03 (0.00-0.50) K/uL Baso # (Auto) 0.02 (0.00-0.30) K/uL Abs Immat Gran (auto) 0.02 (0.00-0.30) K/uL Imm/Tot Granulo (auto) 0.2 % Sodium 140 (135-149) mmol/L Potassium 3.6 (3.6-5.1) mmol/L Chloride 109 (96-114) mmol/L Carbon Dioxide 21 (20-32) mmol/L Anion Gap 10 (7-15) mEq/L BUN 15 (5-24) mg/dL Creatinine 0.7 (0.5-1.5) mg/dL Estimated Creat Clear 83.84 Estimated GFR 115 ml/min Glucose 116 H (60-115) mg/dL Calcium 9.2 (8.4-10.6) mg/dL HCG, Qual Positive (Negative) HCG, Quant < 2.39 mIU/mL Lab Acknowledgement Test Added Test Added Blood Type A Negative Antibody Screen NEGATIVE Imaging Data Transvaginal ultrasound: Attestation: I have reviewed the pertinent imaging results. Radiologist's impression: Unremarkable pelvic ultrasound. No acute findings or evidence for retained products of conception. Dictated by Zana Luis MD @ 03/14/2024 6:56:32 PM Discharge Plan Discharge Clinical Impression: Vaginal bleeding Patient Disposition: Home, Self-Care Condition: Stable Instructions: Abnormal (Dysfunctional) Uterine Bleeding (ED) Additional Instructions: Make sure to follow-up with OB Gyne this week. Return for new or worsening symptoms including but not limited to notably worsening bleeding, worsening lightheadedness, passing out. Start taking the Provera as directed. You start out with 10 mg 3 times a day for 7 days followed by 10 mg twice a day for 7 days and then 10 mg daily. Prescriptions: New medroxyprogesterone [Provera] 10 mg tablet See Rx Instructions .ROUTE .COMPLEX Qty: 60 0RF Rx Instructions: 10 mg 3 times a day for 7 days followed by 10 mg twice a day for 7 days and then 10 mg daily. Follow Up/Referrals: Janeth Avila MD [Primary Care Provider] - Stand Alone Forms: thredUP Info Instructions
[2024-03-14 19:13] LABS: Chloride* 109 mmol/L (96-114); Potassium* 3.6 mmol/L (3.6-5.1); Sodium* 140 mmol/L (135-149)
[2024-03-14 19:16] LABS: Anion Gap 10 mEq/L (7-15); Blood Urea Nitrogen* 15 mg/dL (5-24); Carbon Dioxide* 21 mmol/L (20-32); Creatinine* 0.7 mg/dL (0.5-1.5); Est. Creatinine Clearance* 83.84; Estimated Glomerular Filt Rate 115 ml/min
[2024-03-14 19:17] LABS: Calcium* 9.2 mg/dL (8.4-10.6); Glucose* 116 mg/dL (60-115)
[2024-03-14 20:21] LABS: HCG Qualitative Serum* Positive (Negative)
[2024-03-14] MEDS: MEDROXYPROGESTERONE 5 MG TABLET 10 MG PO (20:30)
[2024-03-14 20:51] VITALS: BP 123/86; PULSE 92; RESP 20; O2SAT 97
[2024-03-14 21:10] LABS: HCG Quantitative* < 2.39 mIU/mL
--- OUTSIDE RECORDS SUMMARY | 2024-03-15 00:12 | XMS_ITS | Data Portability ---
Author Organization [facility] PLASTIC DUPLICATOR, [id number] Address [address] [place] [address] Assessment Encounter Date Assessment Date Assessment LastModified [...] quantitativ e, serum or plasma 2022 023 [facility], [address] [place] [address], [address], [place], [address], 09:46:18 culture, urine [address], [address], [place], [address], 4 07:02:01 Referral None recorded. Procedures None recorded. Surgeries None recorded. Imaging US, obstetric, transvagina l 2022 023 [email or web address] [id number] [facility], [address] [place] [address], [address], [place], [address], 3 13:56:56 US, obstetric, transvagina l 2022 023 [email or web address] [id number] [facility], [address] [place] [address], [address], [place], [address], 3 11:33:13 US, obstetric, transvagina l 2022 023 [email or web address] [id number] [facility], [address] [place] [address], [address], [place], [address], 3 15:37:35 US, obstetric, transvagina l 2023 024 [email or web address] [id number] [facility], [address] [place] [address], [address] [place] [address], [address], 4 14:40:10 Medication Orders None recorded. Patient TargetsNo targets recorded. Patient Instructions Encounter Date Encounter Id Patient Instructions Last Modified By Organization Details Last Modified Time 07/09/2022 [id number] venous blood draw* Not available 07/09/2022 16:10:57 03/03/2023 [id number] - New OB packet reviewed. Handouts provided. - She is considering transferring care to [place] as she lives an hour away from our clinic. - Follow up with Dr. Ba in 4 weeks if she has not transferred care. Discussed completing early GTT. - Will contact with results. Not available 03/03/2023 15:26:38 Reason for Referral None Reported. Results Created Date Observation Date Name Description Value Unit Range Abnormal Flag Note LastModifiedBy Organization Detail LastModifiedTime 07/10/1907/09/2022 HCG PREGN BARNEY QUANT ITATI VE SERUM /PLAS MA HCG quantitative 92 mIU/m L <5 high Adult :0-5 mIU/m L for healt hy non-p regna nt perso n Neona bailee:S hould be withi n edwin l range s by 2 days after Not Available [facility] [address] [facility] [address], [place], [address], 07/10/2022 09:46:17 03/03/19 24 03/03/2023 URINE CULTU RE urine culture SEE RESULT S BELOW SPECI MEN SOURC E Urine Urine , NOS CULTU RE RESUL TS 10,00 0-50, 000 CFU/m L Mixtu re of Uroge nital Radha REPOR T STATU S FINAL 03/05 Not Available [facility] [address] [facility] [address], [place], [address], 03/05/2023 07:02:01 06/25/19 23 06/24/2022 US, obste tric, trans vagin al No observ ation record ed. [email or web address] [address], [place], [address], 06/24/2022 14:04:18 07/10/19 23 07/09/2022 US, obste tric, trans vagin al No observ ation record ed. [email or web address] [address], [place], [address], 07/09/2022 15:43:58 03/03/19 24 03/03/2023 US, obste tric, trans vagin al No observ ation record ed. [email or web address] [address], [place], [address], 03/03/2023 14:42:22 Result Notes None recorded. Problems No Known Problems Procedures Surgical History Date Name Laterality Status Provider Name and Address Organization Details Recorded Time reversal of female sterilization completed Ivis Gutierrez [facility] PLASTIC DUPLICATOR 10/14/2021 12:58:07 Tubal Ligation completed Ivis Gutierrez [facility] PLASTIC DUPLICATOR 10/14/2021 12:58:13 TUBOTUBAL ANASTOMOSIS (SURG) completed Ivette Mitchell(TERM) [facility] PLASTIC DUPLICATOR 11/11/2021 11:48:16 Imaging Results Imaging Date Name Status LastModified by Organization Details LastModified Time 06/24/2022 US, obstetric, transvaginal completed [email or web address] [address], [place], [address], 06/24/2022 14:04:18 07/09/2022 US, obstetric, transvaginal completed [email or web address] [address], [place], [address], 07/09/2022 15:43:58 03/03/2023 US, obstetric, transvaginal completed [email or web address] [address], [place], [address], 03/03/2023 14:42:22 Procedure Notes None recorded. Medical [...] Not Available Vitals Date Recorded Body height Provider Name an d Address Organization Details Last Updated DateTime 06/24/2022 154.94 cm Tammie Vallejo [facility] PLASTIC DUPLICATOR 06/24/2022 12:10:22 Date Recorded Body mass index (BMI) Body weight Provider Name and Address Organization Details Last Updated DateTime 06/24/2022 32.3 kg/m2 14688.01 g Tammie Yoni BOJORQUEZ - [facility] PLASTIC DUPLICATOR 06/24/2022 12:10:31 Date Recorded Body height Provider Name an d Address Organization Details Last Updated DateTime 07/09/2022 154.94 cm Dick Lacy [place] [facility] 15:43:58 Date Recorded Body mass index (BMI) Body weight Provider Name and Address Organization Details Last Updated DateTime 07/09/2022 32.9 kg/m2 41479.07 g Dick Lacy [place] [facility] DUPL[facility] 07/09/2022 15:44:02 Date Recorded Body height Provider Name an d Address Organization Details Last Updated DateTime 03/03/2023 154.94 cm Katina Branham [place] PLASTIC DUPLICATOR 03/03/2023 14:29:43 Date Recorded Body mass index (BMI) Body weight Provider Name and Address Organization Details Last Updated DateTime 03/03/2023 33.2 kg/m2 42839.82 kobe [facility] [place] [place] [facility] 03/03/2023 14:30:55 Date Recorded Systolic blood pressure Diastolic blood pressure Provider Name and Address Organization Details Last Updated DateTime 06/24/2022 124 mm[Hg] 68 mm[Hg] Tammie [place]lejo [place] [facility] 06/24/2022 12:10:56 Date Recorded Systolic blood pressure Diastolic blood pressure Provider Name and Address Organization Details Last Updated DateTime 07/09/2022 114 mm[Hg] 66 mm[Hg] Dick Lacy [place] [facility] DUPLIC[facility] 07/09/2022 15:44:05 Date Recorded Systolic blood pressure Diastolic blood pressure Provider Name and Address Organization Details Last Updated DateTime 03/03/2023 126 mm[Hg] 70 mm[Hg] Katina [place]ham [place] [facility] DUPLIC[facility] 03/03/2023 14:31:00 Social History Question Answer Notes LastModified by Organizat ion Details LastModified Time Tobacco Smoking Status Never Smoker Ivis faulkner [facility] 06/07/2020 17:13:51 Do You Have An Advance [...] Age of this Age Resolved Age Notes LastModified by Organization Details LastModified Time Unspecified Relation Malignant tumor of cervix [email or web address] Not available 2023 15:15:16 Maternal Grandfather Malignant tumor of colon [email or web address] Not available 2023 15:15:09 Medical History Condition Response Weight Management/Obesity Y Gynecological History Statement/Question Response History of Abnormal PAP Y Total lifetime partners Less than 5 Date of LMP 01/03/2023 Y Sexual Orientation Heterosexual Unknown 34 Obstetrics History GPAL:G 9 P 5 0 4 5 Type Value Full Term 5 Spontaneous 4 Living 5 Total 9 Immunizations Vaccine Type Date Status Note Provider Nam e and Address Organization Details Recorded Time Influenza, split virus, trivalent, preservative 3 completed Ivis Pourrier null, [place] [facility] 10/14/2021 12:57:47 MMR 3 completed Ivis [place] [facility] 10/14/2021 12:57:47 Tdap 3 completed Ivis [place] [facility] 10/14/2021 12:57:47 Influenza, split virus, trivalent, PF 3 completed Ivis Pourrier [place] [facility] 10/14/2021 12:57:47 Past Encounters Encounter ID Performer Location Encounter Start Date Encounter Closed Date Diagnosis/Indication Diagnosis SNOMED-CT Code Diagnosis ICD10 Code Diagnosis Note [id number] Tre Ba MD [id number] [facility] [address] [facility] [address] [place] [address] 06/07/2020 16:46:29 06/07/2020 17:50:47 Reversal of sterilization 267501730 Z31.0 [id number] Tre Ba MD [id number]_IOC [facility] [address] [place] [id number] 08/05/2021 19:21:07 08/08/2021 12:06:56 Reversal of sterilization 769380481 Z31.0 [id number] Tre Ba MD [id number] [facility] [facility] [address] [place], [place] [address]Y[facility] [address] [place] [id number] 10/14/2021 12:38:21 10/14/2021 13:38:29 Postoperative visit 110948890 Z09 [id number] Tre Ba MD [id number] [facility]NER [facility] Y [address] [place], [place] [address]JANETH [address] [address] 01/09/2022 11:28:39 01/09/2022 11:47:14 Finding of viability of 901309408 O36.8990 [id number] EMMA LAGUNAS [id number] [facility] Y [address] [place], [place] [address]JANETH [address] [address] 01/09/2022 11:29:08 01/09/2022 18:09:47 Finding of viability of 518482934 O36.8990 Uncertain viability of 693628241 O36.80X9 [id number] EMMA LAGUNAS QY590_GFK [facility] Elaine [address] [place], [place] [address]YENNI [address] [address] 01/13/2022 12:07:11 01/14/2022 09:21:49 [id number] Z33.1 [id number] Adri Niño DO [id number]_ADC [facility] [facility] LAMINE [address] [place] [id number] 06/24/2022 11:40:01 06/24/2022 12:04:55 Finding of viability of 832198754 O36.8990 [id number] EMMA LAGUNAS [id number]_COS [facility] [address] [place] [id number] 06/24/2022 11:43:10 06/24/2022 13:48:42 Gestation period, 7 weeks 68415512 Z3A.01 Multigravi da of advanced maternal age 111550120 O09.529 Past pregn barney history of miscarriage 226159309 Z87.59 [id number] SILVINO TOSCANO, HOME HEALTH MANAGER [id number] [facility] [place] Y [address] [place] [id number] 07/09/2022 15:05:38 07/10/2022 11:33:13 Missed miscarriage 34204012 O02.1 Discussed US with the patient, no sonographi c evidence of IUP. Will get HCG today and follow weekly if still positive. Will inform patient of results.Juan Manuel ballesteros has had 2 SABs since her tubal reversal. Recommende d starting progestero ne right away with next positive . [id number] Adri Niño DO [id number]_UJG [facility] [place] Y [address] [place] [id number] 07/09/2022 14:59:44 07/09/2022 15:27:48 Threatened miscarriage in first trimester 40042939 O20.0 [id number] EMMA LAGUNAS AZ957_IQF [place] Y [address] [place] [id number] 03/03/2023 14:15:13 03/03/2023 15:28:10 test positive 783450241 Z32.01 Gestation period, 8 weeks 78169420 Z3A.08 Past pregn barney history of gestational diabetes mellitus 279326707 Z86.32 Past pregn barney history of delivery of macrosomal infant 8490601643 9102 Z87.59 Multigravi da of advanced maternal age 553359939 O09.529 Reversal o f sterilization 400399250 Z31.42 10/03/2021 [id number] Salvador Costa MD [id number] [facility] [place] Y [address] [place] [id number] 1 03/03/2023 13:46:50 03/03/2023 14:13:48 Finding of viability of 988080028 O36.8990 Health Concerns Section Related Observation LastModified by Organization Detai ls LastModified Time None Recorded Concern Status LastModified by Organization Details LastModified Time None Recorded Advance Directives Directive N: Payers Encounter Date Sequence Insurance Name Policy Number Policy [place] Covered Member ID [place] Member ID Guarantor Name 06/24/2022 1 [employer] - DOS PRIOR TO 2022 (MEDICAID REPLACEMENT - HMO) [id number] 1 Sheba Meño [id number] Sheba Meño 07/09/2022 1 [employer] - DOS PRIOR TO 2022 (MEDICAID REPLACEMENT - HMO) [id number] 1 Sheba Meño [id number] Sheba Meño 07/09/2022 1 [employer] - DOS PRIOR TO 2022 (MEDICAID REPLACEMENT - HMO) [id number] 1 Sheba Meño [id number] Sheba Meño 03/03/2023 SLIDING FEE SCHEDULE - DISCOUNT Sheba Meño 03/03/2023 SLIDING FEE SCHEDULE - DISCOUNT Sheba Meño Notes Date Note Type Note Provider Name and Address Organization Details Recorded Time 06/24/2022 text/html Sheba is here today for a confirmation. She [...] for the intake and labs in 3 weeks.Ultrasound today shows a viable 7 week 1 day IUP with FHT of 154.Based on LMP she is 8 weeks 1 day. JAK KAUFMAN, EMMA [id number] [facility],[address], [place], [address], [facility] PLASTIC DUPLICATOR 06/24/2022 13:48:00 07/09/2022 text/html The patient presents today as follow up from [facility]. She is a . She had a confirmation visit on 06/24/22, 7 weeks . She was seen in the ER on 07/05, and 07/06 for no heartbeat and heavy bleeding. She has a negative blood type and was administered Rhogam in the ER on 07/06/22. HCGs were also done and trending down. Hcg 07/05/22 - 2,262- Patient reports she is still having bleeding, but not as heavy as the past two days. Passing small clots and having cramping. SILVINO TOSCANO, HOME HEALTH MANAGER [address] [facility],[address], [place], [address], [facility] PLASTIC DUPLICATOR 07/09/2022 16:17:52 03/03/2023 text/html This is a G 8 , P 5 , whose LMP was on {{DATE 01/03/2023} } . She is present today for an initial exam. A test was positive on {{DATE 02/02/2023} }.The patient will be {{35 or older when the baby is due* younger than 35 when the baby is due}}. Based on {{LMP* ultrasound} }, her EGA is {{ 8#}} weeks, {{ 3#}} days. BROOKE is {{DATE 10/10/2023} }. BROOKE by {{LMP is consistent with ultrasound* LMP is not consistent with ultrasound}}. Ultrasound was done here today.Is there any history of STD's: {{no* yes}}. Pap smear history: {{no previous pap smears last pap smear was done DATE August 2022#}}. History of abnormal: {{no* yes: EXPLAIN_}}. Her past medical history is notable for obesity.Her past obstetric history is significant for macrosomia [...] previous pregnancies today. Since her LMP, she {{denies the use of alcohol, tobacco, and street drugs* admits to the use of alcohol admits to the use of tobacco admits to the use of illegal drugs}}. Since her LMP she {{claims she has been without significant complaints* has experienced _(SYMPTOMS)_}}. She denies significant nausea, vomiting, and vaginal bleeding. Patient partner's name is {{ Scot#}} and {{he* she}} {{is involved* is not involved}}. The patient would like to deliver at [facility]. Genetic testing was discussed today and the patient {{does not want testing done does want ____ is undecided if she wants testing done* has completed testing with her previous clinic}}. Doctor: Jesenia/Hospital: [facility] of 10/12/2023 by LMP confirmed with US at 8 weeksBMI: 33.2. Early GTT:___Genetic testing:History of probable GDM in previous (Failed 1HR and could not complete 3 HR so was treated as GDM).History of macrosomia. 1st baby 10 lb 14 oz.Vaccines: flu: Reports she is up to date. COVID19 [ ] Tdap [ ]FAS:Rhogam [ ]//Rubella [ ]1hr: [ ]Pump given: [ ]//contraception PPD: [ ] problems/Antepartu m testing: EMMA LAGUNAS [address] [facility],[address], [place], [address], [place] [facility] PLASTIC DUPLICATOR 03/03/2023 15:27:22 OBGyn Episode No OBEpisode recorded.
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
--- OUTSIDE RECORDS SUMMARY | 2024-03-15 00:12 | XMS_ITS | Continuity of Care Document ---
Author Name [place] User [email or web address] [place]lowed Address Unknown Organization Unknown Address Unknown Procedures FILTER APPLIED:Only known Procedures with Onset Date within the last 5 years Procedure Date Procedure Provider Additional Inform ation Status ADMISSION MED REC MARKER FOR REPORTING AND BPA'S (38289) Completed ASSAY OF CREATININE (84000) Completed ASSAY OF URINE CREATININE (51133) Completed ASSAY OF PROTEIN URINE (11713) Completed TRANSFERASE (AST) (SGOT) (21963) Completed ALANINE AMINO (ALT) (SGPT) (62296) Completed ASSAY OF UREA NITROGEN (81826) Completed HIV-1/HIV-2 1 RESULT ANTBDY (70936) Completed HEP B SURFACE ANTIBODY (60846) Completed HEPATITIS C AB TEST (66916) Completed RBC ANTIBODY SCREEN (29600) Completed BLOOD TYPING SEROLOGIC ABO (55937) Completed BLOOD TYPING SEROLOGIC RH(D) (32299) Completed URINE CULTURE/COLONY COUNT (73667) Completed HEPATITIS B SURFACE AG IA (58684) Completed CHLMYD TRACH DNA AMP PROBE (84679) Completed N.GONORRHOEAE DNA AMP PROB (39975) Completed OB US >= 14 WKS SNGL FETUS (48712) Completed OB US >= 14 WKS SNGL FETUS (41351) Completed Encounters FILTER APPLIED:Only known Encounters with Admission Date within the last 5 years Encounter Location Admission Discharge Billing Code Accounts Payable Accountant A minnie Outpatient [facility]
--- OUTSIDE RECORDS SUMMARY | 2024-03-15 00:13 | XMS_ITS | Referral Summary ---
Author Organization [place] Address [address] [place] [address] Care Team Providers Care Perioperative Assistant Name Role Phone Bassem Pathak MD Unavailable [phone] No Ref-Primary, Physician Primary Care Provider Allergies [...] drink = 0.6 oz pur e alcohol) [place] Depression Scale Answer Date Recorded Last EPDS [...] 94 09/23/2023 2:49 PM CDT Temperature 37.2 C (98.9 F) 09/23/2023 2:49 PM CDT Respiratory Rate 19 09/23/2023 2:49 PM CDT Oxygen Saturation 97% 09/22/2023 3:29 PM CDT Inhaled Oxygen Concentration - - Weight 84.7 kg (186 lb 12.8 oz) 09/23/2023 8:16 AM CDT Height 154.9 cm (5' 1) 01/20/2022 4:42 PM DIAGNOSTIC IMAGING MANAGER Body Mass Index 35.3 01/20/2022 4:42 PM DIAGNOSTIC IMAGING MANAGER Plan of Treatment Not on file Procedures [...] AM CDT 09/23/2023 3:27 AM CDT Najma Bell MD LAB - BEAKER POCT Final Result [facility] [address] [facility] [place] [address] from Last 3 Months or Most Recently Relevant to Health Maintenance [place] [address] [place] [address] [facility] Advance Directives For more information, please contact: [phone] * Full Code (Latest Code Status on File) Date Activated Date Inactivated Comments 09/20/2023 8:47 AM 09/23/2023 10:12 PM All basic a nd advanced life-sustaining interventions are performed as appropriate Question Answer Comments Code status determined by: Unable to dis cuss and no AD/POLST on file; continue PREVIOUSLY ORDERED code status Care Teams Perioperative Assistant Relationship Specialty Start Date End Date No Ref-Primary, Physician PCP - General 09/20/23 Bassem Pathak MD [address] [place] [address] Assigned OBGYN Provider 08/16/23
--- OUTSIDE RECORDS SUMMARY | 2024-03-15 00:13 | XMS_ITS | Clinical Summary ---
Author Organization [place] Address [address] [place] [address] Care Team Providers Care Radiologist Name Role Phone Bassem Pathak MD Unavailable [phone] No Ref-Primary, Physician Primary Care Provider Allergies [...] drink = 0.6 oz pur e alcohol) [place] Depression Scale Answer Date Recorded Last EPDS [...] 154.9 cm (5' 1) 01/20/2022 4:42 PM EXHIBIT ELECTRICIAN Body Mass Index 35.3 01/20/2022 4:42 PM EXHIBIT ELECTRICIAN Plan of Treatment Health Maintenance Due Date Last Done Comments ADVANCE CARE PLANNING 1987 ANNUAL REVIEW OF HM ORDERS 1987 YEARLY PREVENTIVE VISIT 10/21/1990 COVID-19 Vaccine (#1) 10/21/1992 HIV SCREENING 10/21/2002 HEPATITIS C SCREENING 10/21/2005 HEPATITIS B IMMUNIZATION (1 of 3 - 19+ 3-dose series) 10/21/2006 Pneumococcal Vaccine: Pediatrics (0 to 5 Years) and At-Risk Patients (6 to 49 Years) (1 of 2 - PCV) 10/21/2006 INFLUENZA VACCINE (#1) 2023 12/08/2012, 2012 PHQ-2 (once per calendar year) 2024 PAP 09/20/2024 09/20/2021, 09/20/2021 GLUCOSE 09/22/2026 09/23/2023, [...] [facility] [address] [facility] [place] [address], [facility] from Last 3 Months or Most Recently Relevant to Health Maintenance Insurance [facility] Advance Directives For more information, please contact: [phone] * Full Code (Latest Code Status on File) Date Activated Date Inactivated Comments 09/20/2023 8:47 AM 09/23/2023 10:12 PM All basic a nd advanced life-sustaining interventions are performed as appropriate Question Answer Comments Code status determined by: Unable to dis cuss and no AD/POLST on file; continue PREVIOUSLY ORDERED code status Care Teams Radiologist Relationship Specialty Start Date End Date No Ref-Primary, Physician PCP - General 09/20/23 Bassem Pathak MD [address] [facility] [address] [place] [address] Assigned OBGYN Provider 08/16/23
--- OUTSIDE RECORDS SUMMARY | 2024-03-15 00:13 | XMS_ITS | Encounter Summary ---
Author Organization [place] Address [address] [place] [address] Care Team Providers Care Potato Spotter Name Role Phone Bassem Pathak MD Unavailable [phone] No Ref-Primary, Physician Primary Care Provider Encounter Details Date Type Department Care Team (Late st Contact Info) Description 09/28/2023 [facility] Medical Advice [facility] [place] [address] [place] [address] Sumi Peraza RN Social History Tobacco Use Types Packs/Day Years Used Date Smoking Tobacco: Never Smokeless Tobacco: Never Alcohol Use Standard Drinks/Week Comments Not Currently 0 (1 standard drink = 0.6 oz pur e alcohol) [place] Depression Scale Answer Date Recorded Last EPDS [...] on filedocumented in this encounter Care Teams Potato Spotter Relationship Specialty Start Date End Date No Ref-Primary, Physician PCP - General 09/20/23 Bassem Pathak MD [address] [place] [address] Assigned OBGYN Provider 08/16/23 documented as of this encounter
== END 2024-03-14 21:23 | disposition home or self-care (01) ==
PROVIDERS: Emergency Provider Student in an Organized Health Care Education/Training Program; PCP Family Medicine
DX: N93.9 Abnormal uterine and vaginal bleeding, unspecified (principal)
CPT/HCPCS: 36415; 76830; 80048; 84702; 84703; 85025; 86850; 86900; 86901; 99284; A9270

== ENCOUNTER 2024-11-11 11:30 | Outpatient (CLI) | payer MEDICAID, SELFPAY ==
[2024-11-11 15:27] LABS: Chlamydia DNA Amplified* NOT DETECTED (No Detected); GC DNA Amplified* NOT DETECTED (No Detected)
== END 2024-11-11 11:31 | disposition home or self-care (01) ==
PROVIDERS: PCP Family Medicine; Visit Provider Physician Assistant
DX: Z34.91 Encounter for supervision of normal pregnancy, unspecified, first trimester (principal); Z3A.09 9 weeks gestation of pregnancy
CPT/HCPCS: 76817; 82565; 82570; 83020; 83021; 84156; 84450; 84460; 84520; 85660; 86592; 86703; 86704; 86706; 86762; 86787; 86803; 86850; 86900; 86901; 87086; 87340; 87491; 87591